=== PATIENT | male | born 1950 | race Caucasian/White ===

== ENCOUNTER → 2016-03-30 | Outpatient (CLI) | payer OTHER, MEDICARE ==
[~2016-03-30] MED LIST: ACET-1138 PO; ALLO300T2 PO; AMOX875T PO; ASPI325T4 PO; ASPI81TA28 PO; ATEN50TA PO; CHOL2000 PO; CHOL20007 PO; CIPR-255 PO; CLB/200 PO; CLB200 PO; CYAN10004 PO; DAPT500I IV; DAPT500I IV.; DOXY-300 PO; ERTA1INJ IV; FINA5TAB PO; FLM4 PO; FURO20TA PO; HYZ/50125 PO; LISI40TA PO; LOSA100T26 PO; LPR25 PO; MELO7.5T5 PO; NORT10CA2 PO; ONDA8TAB6 PO; OXYC-57 PO; OXYC1TAB3 PO; OXYSR10 PO; OXYSR20 PO; PROP60CA5 PO; RXC5 PO; SNK PO; TEST5GEL TOP; TESTOSTERONE; TYLOTC500 PO; ULT/50 PO; VTMB12 PO; WARF2TAB PO; WARF5TAB90 PO; allopurinol
== END | disposition home or self-care (01) ==
LOC: C.LAB1850 10:00
PROVIDERS: ATTEND Internal Medicine Endocrinology, Diabetes & Metabolism
DX: E29.1 Testicular hypofunction (principal)

== ENCOUNTER → 2016-04-03 | Outpatient (CLI) | payer OTHER, MEDICARE ==
--- NOTE | 2016-04-04 06:04 | PAP/PSG TECHNICIAN REPORT ---
[facility] Senior Quality Analyst Polysomnogram Report Study name: None Report date: 04/04/2016 Study date: 04/03/2016 Referring Physician: Hernandez Gilliam M.D. Name: MERLYN LOPEZ Interpreting Physician: Hernandez Gilliam M.D. Date of : 1950 Senior Quality Analyst: Shruthi Stephenson RPS. Sex: Male Age: 66 StudyType: PSG PAP Weight: 354 lbs Height: 66 years, Height 5' 8" Neck Circum: 18.5 inches BMI: 53.82 Medications: Allopurinol 300 mg, Aspirin 81 mg, Finasteride 1 mg, Inderal LA 80 mg, Losartan Potassium -HCTZ 50-12.5 mg, Nortriptyline 10 mg, Oxycodone-Acetaminophen 10-325 mg, Tamsuloson HCL 0.4 mf, Vitamin B-12 1000 MCG, Vitamin D 24764 Patient History 66 yr. old male here for an updated titration sleep study. Patient is currently using 13 CWP with nasal pillows. Current [place] sleepiness scale 16/24. Parameters Monitored NPSG: E1-M2, E2-M1, Fp1-M2, Fp2-M1, F3-M2, F4-M2, F4-M1, C3-M2, C4-M2, C4-M1, O1-M2, O2-M2, O2-M1, T3-M2, T4-M1, P3-M2, P4-M1, CHIN1, CHIN2, HR, EKG, Legs, PFLOW, SNOR, FLOW, CFLOW, Tidal Volume, THOR, ABDO, SpO2, PLTH, CPRESS, ETCO2 Wave, ETCO2, pH Sleep Architecture Sleep Stages Time at Lights Off 10:32:03 PM STAGES Time (min.) TST (%) Time at Lights On 5:36:03 AM Wake 102.0 -- Total Recording Time (TRT) 423.00 min. N1 56.5 18 Total Sleep Period (TSP) 417.0 min. N2 231.5 72 Total Sleep Time (TST) 321.0min. N3 9.5 3 Awake Time 102.0 min. REM 23.5 7 Wake after Sleep Onset 97.0 min. Sleep Efficiency (SE) 76 % Sleep Onset Latency (CATHERINE) 6.0 min. Number of Stage 1 Shifts None Awakenings 45 Stage Changes 164 Number of REM periods 8 REM 23.5 7 REM Latency 46.5 min. NREM 297.5 93 Body Position Analysis Supine Right Left Side Prone Vertical Total Sleep Time (min.) 79.8 129.0 131.0 260.00 0.0 0.5 Total Sleep Time (%) 19% 40% 41% 81 0% N/A% Total Sleep Time REM (min.) 0.0 6.0 17.5 None 0.0 0.0 Total Sleep Time NREM (min.) 61.0 123.0 113.5 None 0.0 0.0 Intermittent Wake (min.) 18.8 52.9 29.9 None 0.0 0.5 Total Sleep Period (%) 19% None None None None None Arousals Myoclonus (PLM) * Events Count Index Events Count Index Spontaneous 9 2 Events Awake (PLMW) 157 92.4 Respiratory 0 0.6 Events Asleep w/ Arousal (PLMA) 52 9.7 PLM 52 10 Events Asleep w/o Arousal (PLMS) 242 45.2 Snoring 2 0 Total Asleep 294 55.0 Total 63 12 Total 451 64 Respiratory Analysis * CA OA MA CH H RERA Total Count 0 0 0 0 30 0 30 Index 0.0 0.0 0.0 0 5.6 0 5.6 Mean Duration 0.0 0.0 0.0 0.00 29.9 0.0 29.9 Longest Duration 0.0 0.0 0.0 0.00 0.0 0.0 81.8 Respiratory Event Summary Total Supine ~Supine Right Left Prone REM NREM Apneas Count 0 0 0 0 0 N/A 0 0 Index 0.0 0 0 0.0 0.0 N/A 0 0 Hypopneas (4% Desat) Count 30 5 25 6 19 N/A 10 20 Index 5.6 4.9 6 2.8 8.7 N/A 25.5 4.0 Apneas & All Hypopneas Count 30 5 25 6 19 N/A 10 20 Index 5.6 5 6 3 9 N/A 25.5 4.0 Respiratory Events (Medical Imaging Tech+All Hyp+RERA) Count 30 5 25 6 19 N/A 10 20 Index 5.6 5 6 2.8 8.7 N/A 25.5 4.0 Respiratory Related Arousal Count 0 5 3 1 2 N/A 3 0 Index 0.6 0 1 0 1 N/A 8 0 Snoring Analysis Supine Right Left Prone REM NREM Total Snore duration 1.4 min Snores count 2 16 14 N/A 3 29 32 Snore mean duration 2.5 Sec Snores index 2 7 6 N/A 7.7 5.8 6.0 TST with snoring (%) 0.4% Desaturation Event Summary: Minimum %SpO2 Event Count Mean/Min/Max Duration(sec.) Desaturation Index % Time In Bed > 90 44 35.5 / 6.3 / 60.0 6.9 92.3 86 - 90 3 19.3 / 6.3 / 31.5 5.9 7.5 81 - 85 0 N/A 0.0 0.3 76 - 80 0 N/A 0.0 0.0 71 - 75 0 N/A 0.0 0.0 66 - 70 0 N/A 0.0 0.0 61 - 65 0 N/A 0.0 0.0 56 - 60 0 N/A 0.0 0.0 51 - 55 0 N/A 0.0 0.0 < 50 0 N/A 0.0 0.0 Total REM NREM Awake <50% 0.0 min. 0.0 min. 0.0 min. 0.0 min. 51 - 60% 0.0 min. 0.0 min. 0.0 min. 0.0 min. 61 - 70% 0.0 min. 0.0 min. 0.0 min. 0.0 min. 71 - 80% 0.0 min. 0.0 min. 0.0 min. 0.0 min. 81 - 90% 31.8 min. 12.1 min. 11.3 min. 8.5 min. 91 - 100% 381.0 min. 11.4 min. 286.2 min. 83.4 min. Average 94 91 94 96 Minimum SpO2 85 85 87 85 Desaturation Event Index 6.4 15.3 5.6 7.6 # Desat. Events below 89% 4 3 1 0 Time(%) with Saturation below 89% 2.1 1.5 0.0 0.6 Time(min.) with Saturation below 89% 8.9 6.0 0.2 2.7 Time (mins) REM (mins) NREM (mins) % of TST SpO2 Below 90% 16 5 N11 4.0 SpO2 Below 88% 1 0 0 1 Heart Rate Analysis Min (bpm) Max (bpm) Average (bpm) Awake 53 79 61 NREM 52 73 59 REM 52 77 61 Overall 52 77 59 Supplemental O2 Values Minimum O2 level: None Value Start Time End Time Senior Quality Analyst Comments Mr. Lopez slept in the right, left, and supine positions. Cardiac arrhythmias and PLMs noted. No bruxism noted. CPAP was initiated at +5 CMH2O room air and up-titrated to a level of + 10 CMH2O Cflex 2. A Respironics Dreamwear, was used during titration. Mr. Lopez awoke to use the restroom once during the night. Mr. Lopez stated, that was a terrible night due to pain. The final report will be interpreted and signed by a sleep physician. The completed physician report will then be placed in the patient medical record. Therapy Event: Therapy (cm H20) 5 6 7 8 9 10 Total Time at Pressure (min.) 67.6 170.8 87.6 22.4 60.3 14.3 TST at Pressure (min.) 49.1 132.8 54.1 17.9 55.3 11.8 # Periods 1 1 1 1 1 1 Sleep Onset (min.) 6.0 0.0 0.0 0.0 0.0 0.0 REM Onset (min.) 52.5 0.0 N/A 4.5 49.6 0.0 Sleep Efficiency % 72 77 61 79 91 82 Wakefulness (%) 27.4 22.3 38.2 20.1 8.3 17.5 Wakefulness (min.) 18.5 38.0 33.5 4.5 5.0 2.5 NREM 1 (%) 12.6 12.6 12.6 22.3 14.9 10.5 NREM 1 (min.) 8.5 21.5 11.0 5.0 9.0 1.5 NREM 2 (%) 56.2 57.6 49.2 42.0 62.3 35.0 NREM 2 (min.) 38.0 98.4 43.1 9.4 37.6 5.0 NREM 3 (%) 0.0 5.6 0.0 0.0 0.0 0.0 NREM 3 (min.) 0.0 9.5 0.0 0.0 0.0 0.0 REM (%) 3.8 2.0 0.0 15.6 14.5 37.0 REM (min.) 2.6 3.4 0.0 3.5 8.7 5.3 # Arousals 4 40 10 0 7 2 Arousal Index 4.9 18.1 11.1 0.0 7.6 10.2 # Snore 1 16 6 1 7 1 Snore Index 1.2 7.2 6.6 3.3 7.6 5.1 AHI 3.7 3.6 4.4 30.1 6.5 0.0 AHI Supine N/A 5.7 0.0 N/A N/A N/A AHI Non-Supine 3.7 2.3 5.2 30.1 6.5 0.0 NREM AHI 2.6 2.8 4.4 25.0 2.6 0.0 REM AHI 23.2 35.1 N/A 51.4 27.5 0.0 RDI 3.7 3.6 4.4 30.1 6.5 0.0 # Obstructive 0 0 0 0 0 0 # Central Ap 0 0 0 0 0 0 # Mixed 0 0 0 0 0 0 # Hypopneas 3 8 4 9 6 0 RERAS 0 0 0 0 0 0 Total Respiratory Events 3 8 4 9 6 0 Time Below SpO2 89.00% (min.) 0.0 0.3 0.0 1.7 2.7 1.6 Mean NREM SpO2 (%) 96 95 93 93 92 94 Mean REM SpO2 (%) 93 93 N/A 89 90 91 Mean Sleep SpO2 (%) 96 95 93 92 92 93 Min NREM SpO2 (%) 90 90 89 87 90 92 Min REM SpO2 (%) 89 88 N/A 85 85 87 Position Supine (min.) 0.0 52.9 8.1 0.0 0.0 0.0 Position Non-supine (min.) 49.1 79.9 46.0 17.9 55.3 11.8 LM Index Sleep 13.4 40.7 100.9 90.4 68.4 61.1 LM Index NREM 14.2 39.0 100.9 104.0 73.4 73.8 LM Index REM 0.0 105.4 N/A 34.3 41.3 45.4 Mean Heart Rate (bpm) 58 59 60 59 57 61 Min Heart Rate (bpm) 54 52 55 54 53 56
--- NOTE | 2016-04-08 01:56 | POLYSOMNOGRAPH REPORT ---
CLINICAL DATA: A 66-year-old male with BMI of 53.82, referred by myself for an updated titration study. He is currently using CPAP at 13 cm of water pressure with nasal pillows but still has significant sleepiness. SLEEP ARCHITECTURE: Total sleep period was 417 minutes. Total sleep time was 321 minutes divided between 297.5 minutes of non-REM sleep and 23.5 minutes of REM sleep. Sleep onset latency was 6 minutes. REM latency was 46.5 minutes. Sleep efficiency was 76%. Awake after sleep onset was 97 minutes. Sleep consisted of stage N1 18%, N2 72%, N3 3%, REM 7%. AROUSAL DATA: 63 arousals were recorded for an index of 12 per hour. PLM DATA: Severely elevated limb movements during sleep were noted. There were 294 limb movements during sleep noted for an index of 55 per hour with arousal index of 9.7 per hour. RESPIRATORY DATA: The AHI was 5.6. There were 38 hypopneic episodes. The mean duration of hypopnea was 30 seconds. OXIMETRY DATA: Mild nocturnal hypoxemia was seen. Oxygen dariel was 85% during REM. Mean saturation was 94%. Time below 88% was 1 minute. EKG: Heart rates ranged from 52-77 beats per minute. PACs were noted throughout the night. PHILANTHROPY OFFICER'S COMMENTS AND TREATMENT SUMMARY: The patient slept in the right, left and supine positions. The patient wore a Respironics DreamWear mask. He was titrated up to his final pressure setting of 10 cm water pressure, C-Flex setting #2. At his final pressure setting, the patient slept for 11.8 minutes with an AHI of 0. He had a great deal of difficulty during the night due to pain. IMPRESSION: Sleep apnea corrected with CPAP 10 cm of water pressure, C-Flex setting #2. RECOMMENDATIONS: The patient's CPAP can be adjusted to the above-noted setting. [facility]
== END | disposition home or self-care (01) ==
LOC: C.NEUR 20:00
PROVIDERS: ATTEND Internal Medicine Pulmonary Disease
DX: R53.83 Other fatigue (principal); G47.33 Obstructive sleep apnea (adult) (pediatric)

== ENCOUNTER → 2016-04-10 | Outpatient (CLI) | payer OTHER, MEDICARE ==
[~2016-04-10] VITALS: Ht 175.3 cm; Wt 154.0 kg
[~2016-04-10] MED LIST changes: -ASPI325T4 PO; -CYAN10004 PO; -FURO20TA PO; -LISI40TA PO; -LPR25 PO; -OXYSR20 PO; -TESTOSTERONE; -ULT/50 PO; -allopurinol
[2016-04-10 14:13] VITALS: BP 144/88; PULSE 72; Ht 175.3 cm; Wt 154.0 kg
== END | disposition home or self-care (01) ==
LOC: C.NEUR 13:30
PROVIDERS: ATTEND Internal Medicine Pulmonary Disease
DX: G47.33 Obstructive sleep apnea (adult) (pediatric) (principal); R53.83 Other fatigue; G89.29 Other chronic pain; M15.9 Polyosteoarthritis, unspecified

== ENCOUNTER 2016-05-08 09:20 | Inpatient (IN) | payer OTHER, MEDICARE ==
[2016-04-09 14:16] VITALS: BMI 49.0
--- NOTE | 2016-04-09 14:52 | PAT Medication Instructions ---
Service Date Apr 09, 2016. Current Home Medication List Allopurinol (Zyloprim), 300 MG PO QAM Aspirin (Aspirin Ec), 81 MG PO QAM Finasteride (Proscar), 5 MG PO QAM Losartan Potassium & Hydrochlo (Losartan Potassium/Hydroc), 1 TAB PO QAM Meloxicam (Mobic), 15 MG PO QAM Nortriptyline (Pamelor), 20 MG PO HS Oxycodone/Acetaminophen 5MG/325MG (Percocet 5MG/325MG), 1-2 TABLETS PO Q4H PRN for Pain Propranolol La (Inderal La), 80 MG PO QAM Tamsulosin HCl (Tamsulosin HCl), 1 CAP PO HS Testosterone (Androgel Pump), 40.5 MG TOP DAILY Medication Instructions For Your Scheduled Surgery - Check with surgeon for instructions: Meloxicam (Mobic), 15 MG PO QAM - Hold the following medications the morning of surgery: Losartan Potassium & Hydrochlo (Losartan Potassium/Hydroc), 1 TAB PO QAM Testosterone (Androgel Pump), 40.5 MG TOP DAILY - Take the following medications the morning of surgery with a sip of water: Propranolol La (Inderal La), 80 MG PO QAM Finasteride (Proscar), 5 MG PO QAM Allopurinol (Zyloprim), 300 MG PO QAM Aspirin (Aspirin Ec), 81 MG PO QAM (unless otherwise per surgeon) Oxycodone/Acetaminophen 5MG/325MG (Percocet 5MG/325MG), 1-2 TABLETS PO Q4H PRN for Pain (okay to take up to 4 hours prior to surgery if needed) - Take the following medications as scheduled the night before surgery: Tamsulosin HCl (Tamsulosin HCl), 1 CAP PO HS Nortriptyline (Pamelor), 20 MG PO HS Oxycodone/Acetaminophen 5MG/325MG (Percocet 5MG/325MG), 1-2 TABLETS PO Q4H PRN for Pain (if needed) If you have any questions please call us at [phone] (Emiliana Walters PA-C) or [phone] or [phone]
--- NOTE | 2016-04-09 15:21 | DIAGNOSTIC IMAGING REPORT ---
CHEST 2 VIEWS ROUTINE CLINICAL HISTORY: Preoperative evaluation COMPARISON STUDY: Chest radiograph December 31, 2011 and November 19, 2011. FINDINGS: Lung volumes are normal. There is no pneumothorax or pleural effusion. There is no evidence of pulmonary edema. Mild cardiomegaly is unchanged. IMPRESSION: 1. No acute cardiopulmonary findings. 2. Stable mild cardiomegaly. Electronically signed by: Timothy Ochoa M.D. 04/09/2016 3:19 PM Dictated Date/Time: 04/09/2016 3:18 PM
[2016-04-09 15:30] LABS: BASO % 0.5 %; BASO ABS # 0.03 K/uL (0-0.2); COMPLETE YES; EOS % 0.8 %; HEMATOCRIT 42.3 % (42-52); IG% 0.2 %; LYMPH ABS # 1.84 K/uL (1.2-3.4); MEAN CELL VOLUME 85.1 fL (80-100); MEAN CORPUSCULAR HEMOGLOBIN 29.2 pg (25-34); MEAN CORPUSCULAR HGB CONC 34.3 g/dl (32-36); MEAN PLATELET VOLUME 10.6 fL (7.4-10.4); MONO % 10.1 %; NEUT % 59.4 %; PLATELET COUNT 254 K/uL (130-400); RED BLOOD COUNT 4.97 M/uL (4.7-6.1); WHITE BLOOD COUNT 6.34 K/uL (4.8-10.8)
[2016-04-09 15:39] LABS: URINE APPEARANCE CLEAR (CLEAR); URINE BILIRUBIN NEG (NEG); URINE COLOR YELLOW; URINE NITRITE NEG (NEG); URINE SPECIFIC GRAVITY 1.009 (1.000-1.030); UROBILINOGEN NEG (NEG); ZZUR CULT IF INDIC CLEAN CATCH NO
[2016-04-09 15:40] LABS: INR 1.1 (0.9-1.1); PARTIAL THROMBOPLASTIN RATIO 1.1; PROTHROMBIN TIME (PATIENT) 11.9 SECONDS (9.0-12.0)
[2016-04-09 15:42] LABS: MANUAL MICROSCOPIC REQUIRED? NO; REVIEW REQ? NO
[2016-04-09 15:53] LABS: BUN/CREATININE RATIO 13.4 (10-20); CREATININE 0.77 mg/dl (0.60-1.40); POTASSIUM 4.2 mmol/L (3.5-5.1)
--- NOTE | 2016-05-07 09:44 | HISTORY & PHYSICAL EXAMINATION ---
DATE OF ADMISSION: 05/08/2016 CHIEF COMPLAINT: Right hip pain. HISTORY OF PRESENT ILLNESS: Timothy is a 66-year-old male with a multiple-year history of pain in his right hip. The patient's pain is mostly located in his right knee which is likely referred pain from the hip. He rates his pain an 8/10. He has pain with his daily activities. He has limited standing and walking tolerance. Pain is worse with weightbearing. The patient uses a cane to ambulate. He has had injections, Mobic and narcotics without relief. He has failed conservative treatment and is scheduled for right hip replacement. PAST MEDICAL HISTORY: History of DVT status post TKA 6 years ago, hypertension, sleep apnea, obesity. He denies heart disease or diabetes. PAST SURGICAL HISTORY: Knee replacement x4, inguinal hernia, cholecystectomy, appendectomy. SOCIAL HISTORY: The patient denies alcohol or tobacco use. He lives in an apartment with an elevator with his . He is retired. FAMILY HISTORY: Negative for DVT. MEDICATIONS: Allopurinol 300 mg daily, aspirin 81 mg daily, Inderal-LA 80 mg daily, losartan 50 mg daily, nortriptyline 10 mg, tamsulosin 0.4 mg daily, vitamin B12 1000 mcg, meloxicam 15 mg, oxycodone 5 mg, finasteride 5 mg, AndroGel 1.62% 6 pumps daily. ALLERGIES: None. REVIEW OF SYSTEMS: See HPI. Ten other systems reviewed, all negative. PHYSICAL EXAMINATION: VITAL SIGNS: Height 5-foot 9, weight 330 pounds, BMI is 49. GENERAL: This is a well-developed, well-nourished male who is alert and oriented x3. Mood and affect are appropriate. HEENT: Normocephalic, atraumatic. Mucous membranes are moist and intact. NECK: Supple without lymphadenopathy. HEART: Regular rate and rhythm without murmurs, rubs or gallops. LUNGS: Clear to auscultation without wheezes or rhonchi. ABDOMEN: Soft and nontender. Bowel sounds are equal and active. EXTREMITIES: No ecchymosis, redness or warmth. Thigh and calf are soft and nontender. Log roll of the hip reproduces pain in the groin. Range of motion is decreased. He is neurovascularly intact with +5/5 strength. He walks with an antalgic gait. X-RAY EXAMINATION: AP and lateral views show joint space narrowing and osteophyte formation of the right hip. PLAN: The patient will be admitted for a right total hip arthroplasty, lateral approach. The patient is aware due to his morbid obesity and history of DVT, he is high risk for surgery and possible complications, but due to his level of pain, wishes to proceed. He will plan on [facility] for home physical therapy. We will use aspirin for DVT prophylaxis. PCP is Dr. Garcia at [facility].
[~2016-05-08] VITALS: Ht 175.3 cm; Wt 152.3 kg
[~2016-05-08 09:20] MED LIST changes: -ACET-1138 PO; +ACETAMINOPHEN 500 MG TAB PO SCH; -AMOX875T PO; +BUPIVACAINE 0.5 % 5 MG/1 ML PF 10ML VIAL ONE; +CEFAZOLIN 3000 MG/65 ML D5W 65 ML IV SCH; -CHOL20007 PO; -CIPR-255 PO; -CLB/200 PO; -CLB200 PO; +CeleBREX 200 MG CAP PO SCH; -DAPT500I IV; -DAPT500I IV.; +DEXAMETHASONE 4 MG TAB PO SCH; -DOXY-300 PO; -ERTA1INJ IV; +FAMOTIDINE 20 MG TAB PO SCH; +GABAPENTIN 300 MG CAP PO SCH; -HYZ/50125 PO; +LACTATED RINGER'S 1000ML 1,000 ML IV SCH; +LACTATED RINGER'S 1000ML 500 ML IV ONE; +LACTATED RINGER'S 1000ML IV SCH; -MELO7.5T5 PO; +METOCLOPRAMIDE HCL 10 MG TAB PO SCH; -ONDA8TAB6 PO; -OXYC1TAB3 PO; +OXYCODONE HCL 10 MG TABCR (OXYCONTIN) PO SCH; -OXYSR10 PO; +POLYMYXIN B SULFATE 100,000 UNITS in NSS 100ML IR SCH; +ROPIVACAINE 5MG/ML 30 ML 150 MG, BUPIVACAINE/EPINEPHR 0.5% MPF 30 ML, KETOROLAC TROMETH... INFIL SCH; -RXC5 PO; -SNK PO; -TYLOTC500 PO; +VANCOMYCIN INJ 400 MG in NSS 100ML IR SCH; -VTMB12 PO; -WARF2TAB PO; -WARF5TAB90 PO
[2016-05-08 09:51] VITALS: BP 162/86; PULSE 63; TEMP 36.6; O2SAT 93; Ht 175.3 cm; Wt 152.3 kg
[2016-05-08] MEDS ORDERED: MIDAZOLAM HCL 1 MG/ML 2ML VIAL ONE ×2 (10:18→13:03)
[2016-05-08] MEDS ORDERED: PROPOFOL IV EMULSION 10 MG/ML 20 ML VIAL IV ONE (10:18)
[2016-05-08] MEDS ORDERED: FENTANYL CITRATE INJ 50 MCG/1 ML 2 ML VIAL ONE (10:18)
[2016-05-08] MEDS ORDERED: LABETALOL HCL IV 5 MG/ML 20ML IV PRN (10:30)
[2016-05-08] MEDS ORDERED: HYDROmorphone INJ 2 MG/ML SYR/VIAL IV PRN (10:30)
[2016-05-08] MEDS ORDERED: FENTANYL CITRATE INJ 50 MCG/1 ML 2 ML VIAL IV PRN (10:30)
[2016-05-08] MEDS ORDERED: FLUMAZENIL 0.1 MG/1 ML 10 ML VIAL IV PRN (10:30)
[2016-05-08] MEDS ORDERED: EpHEDrine SULFATE INJ 50 MG/ML AMP IV PRN (10:30)
[2016-05-08] MEDS ORDERED: ATROPINE SULFATE 0.1 MG/ML 5ML SYR IV PRN (10:30)
[2016-05-08] MEDS ORDERED: PHENYLEPHRINE 100MCG/ML 5ML SYR IV PRN (10:30)
[2016-05-08] MEDS ORDERED: MEPERIDINE HCL 25 MG/ML CARP IV PRN (10:30)
[2016-05-08] MEDS ORDERED: NALOXONE HCL 0.4 MG/1 ML VIAL/CARP IV PRN (10:30)
[2016-05-08] MEDS ORDERED: ONDANSETRON INJ 2 MG/ML 2 ML VIAL IV PRN ×2 (10:30→13:45)
--- NOTE | 2016-05-08 11:14 | History & Physical Bridge Note ---
H&P Re-Evaluation Bridge Note: I have examined the patient, reviewed the History & Physical and in the interval since the performance of the History & Physical I have noted the following changes of clinical significance: No changes noted
[2016-05-08] MEDS: TRANEXAMIC ACID INJ 1,000 MG in SODIUM CHLORIDE 0.9% 100ML 100 ML IV SCH ×2 (11:35→16:52)
[2016-05-08] MEDS ORDERED: ORTHO JOINT ANESTHETIC ONE (11:57)
[2016-05-08] MEDS ORDERED: POVIDONE-IODINE OP SOLN 30 ML BTL ONE (11:58)
[2016-05-08] MEDS ORDERED: BACITRACIN 50000 UNIT VIAL ONE (11:58)
[2016-05-08] MEDS ORDERED: PHENYLEPHRINE 100MCG/ML 5ML SYR ONE (12:32)
[2016-05-08] MEDS ORDERED: EpHEDrine SULFATE 50MG/5ML SYR ONE (12:32)
--- NOTE | 2016-05-08 13:38 | [facility] Post Operative Brief Note ---
Immediate Operative Summary Operative Date May 08, 2016. Pre-Operative Diagnosis Right Hip Degenerative joint Disease Post-Operative Diagnosis Right Hip Degenerative joint Disease MORBID OBESITY 50 Procedure(s) Performed Total Right Hip Arthroplasty, Lateral Approach Surgeon Dr. Anton Oconnor [employer] Machine Tender Surgeon(s) Amparo Nolasco PA-C Estimated Blood Loss 150 cc Findings severe djd Specimens A: Right Femoral Head Complication(s) None Disposition Recovery Room / PACU
[2016-05-08] MEDS ORDERED: DiphenhydrAMINE HCL 50 MG/ML VIAL IV PRN (13:45)
[2016-05-08] MEDS ORDERED: MAGNESIUM HYDROXIDE SUSP 30 ML UDC PO PRN (13:45)
[2016-05-08] MEDS ORDERED: ZOLPIDEM TARTRATE 5 MG TAB PO PRN (13:45)
[2016-05-08] MEDS ORDERED: TRAMADOL HCL 50 MG TAB PO PRN (13:45)
[2016-05-08] MEDS ORDERED: SOD PHOSPHATE/SOD BIPHOSPHATE ENEMA 132 ML BTL PR PRN (13:45)
[2016-05-08] MEDS ORDERED: ALUMINUM/MAGNESIUM/SIMETH (MAALOX MAX) 30 ML UDC PO PRN (13:45)
[2016-05-08] MEDS ORDERED: METOCLOPRAMIDE HCL INJ 5 MG/ML 2 ML VIAL IV PRN (13:45)
[2016-05-08] MEDS ORDERED: BISACODYL 10 MG SUPP PR PRN (13:45)
[2016-05-08] MEDS ORDERED: MoRPHine SULFATE 2 MG/ML CARP IV PRN (13:45)
--- NOTE | 2016-05-08 14:22 | DIAGNOSTIC IMAGING REPORT ---
RIGHT PELVIS/UNILATERAL HIP 1 VIEW CLINICAL HISTORY: IN PACU - A/P PELVIS and LATERAL HIP INCLUDING ALL OF IMPLANT Right postoperative evaluation COMPARISON: None. DISCUSSION: Total right hip replacement. Prosthetic is in good position. Expected soft tissue postoperative change IMPRESSION: Anatomic alignment status post total right hip replacement Electronically signed by: Reymundo Cortes M.D. 05/08/2016 2:21 PM Dictated Date/Time: 05/08/2016 2:20 PM
--- NOTE | 2016-05-08 14:36 | OPERATIVE REPORT ---
DATE OF OPERATION: 05/08/2016 PREOPERATIVE DIAGNOSES: 1. Degenerative arthritis, right hip. 2. Morbid obesity, BMI of 50. POSTOPERATIVE DIAGNOSES: Same. PROCEDURE: Right total hip replacement. SURGEON: Anton Oconnor MD MARKETING ANALYTICS LEAD: OPAL Ma ANESTHESIA: Spinal. BLOOD LOSS: 150 mL. REPLACEMENT FLUIDS: 2200 mL crystalloid. DRAINS: Hemovacs x2. CULTURES: None. COMPLICATIONS: None. COMPONENTS USED: [employer] hip system: Acetabulum size 56, femur size 9 standard offset, femoral head +8, 36 mm. NOTE: OPAL Ma was present and assisted throughout due to the complicated nature of this case. She helped with preparation and set up and positioning and first assisted throughout. She also personally closed the fascial, subcutaneous and skin layers and applied the postoperative dressing and a surface wound VAC. DESCRIPTION OF PROCEDURE: Following satisfactory spinal, the patient was placed in the lateral decubitus position because of his morbidly obese body habitus. He was secured with a lateral body positioner and sites were padded appropriately. He had a large abdominal pannus, which did have a tendency to hang over the table and was padded. The hip was prepared with ChloraPrep and then, draped sterilely. Following a surgical timeout, an anterolateral approach to the hip was performed in the interval between the sartorius and tensor muscles. An anterolateral approach to the hip was performed. The subcutaneous tissues were extremely large and deep and measured at least 6-8 inches over the greater trochanter. This required additional time and effort to expose the fascia and obtain hemostasis. The fascia was then divided longitudinally. A Hardinge approach was then completed. Bleeding was controlled. Severely arthritic femoral neck and head were exposed and dislocated. The femoral neck and head were trimmed and removed. Exposure was deep because of the patient's large body habitus and large fatty layer. Acetabular exposure was completed. Acetabular preparation was completed and following reaming, a 56 shell was impacted and secured with a dome screw. Local anesthetic was placed and after irrigation, the poly liner was placed. Attention was turned to the femur. Femoral canal was prepared up to a size 9. A trial reduction with a +8 head showed the best soft tissue tension. Orientation of components looked good. Leg lengths were difficult to assess because of the lateral position. The hip was dislocated. The trial components were removed. After irrigation, the final implant was placed and the hip was reduced. A Betadine soak was performed for 5 minutes. When 5 minutes were up, the Betadine was irrigated. A drain was placed. The vastus gluteus split after irrigation was then closed with interrupted [id number] sutures of #1 Vicryl and reinforced over the trochanter with #5 FiberWire through drill holes x2. Following irrigation, the fascia was closed with a running suture of 0 V-Loc and reinforced with #1 Vicryl. Another drain was then placed deep into the large fatty layer. The closure of the fat layer required additional effort because of the size, #2 Vicryl was used deep, #1 Vicryl and then 2-0 Vicryl superficial, all closed over a drain. Navin were applied. A surface wound VAC was applied. The patient was returned to his bed in stable condition. I attest to the content of the Intraoperative Record and any orders documented therein. Any exceptio ns are noted below.
--- NOTE | 2016-05-08 15:21 | Anesthesiology Progress Note ---
Anesthesia Post Op Note Date & Time May 08, 2016 at 15:21 Vital Signs Pain Intensity: 0 Vital Signs Past 12 Hours Date Time Temp Pulse Resp B/P Pulse Ox O2 Delivery O2 Flow Rate FiO2 05/08/16 14:43 36.5 05/08/16 14:40 54 16 100 05/08/16 14:40 53 16 05/08/16 14:38 134/68 05/08/16 14:35 54 14 100 05/08/16 14:35 54 14 05/08/16 14:33 127/68 05/08/16 14:30 56 10 100 05/08/16 14:30 56 10 05/08/16 14:28 126/66 05/08/16 14:25 57 16 05/08/16 14:25 59 16 99 05/08/16 14:23 116/59 05/08/16 14:20 52 05/08/16 14:20 52 14 99 05/08/16 14:18 125/75 05/08/16 14:15 55 05/08/16 14:15 56 14 99 05/08/16 14:13 121/72 05/08/16 14:10 55 14 99 05/08/16 14:10 56 14 05/08/16 14:08 134/70 05/08/16 14:05 57 14 99 05/08/16 14:05 57 05/08/16 14:03 123/67 05/08/16 14:00 57 10 100 05/08/16 14:00 57 10 05/08/16 13:58 124/63 05/08/16 13:57 116/68 05/08/16 13:55 36.7 58 14 116/68 98 Mask 10 05/08/16 09:51 36.6 63 20 162/86 93 Room Air Notes Mental Status: alert / awake / arousable, participated in evaluation Pt Amnestic to Procedure: Yes Nausea / Vomiting: adequately controlled Pain: adequately controlled Airway Patency, RR, SpO2: stable & adequate BP & HR: stable & adequate Hydration State: stable & adequate Neuraxial Anesthesia: was administered, sensory block is resolving Anesthetic Complications: no major complications apparent
[2016-05-08 16:10] VITALS: BP 118/68; PULSE 56; TEMP 34.7; O2SAT 97
[2016-05-08 16:32] VITALS: BP 124/70; PULSE 57; TEMP 36.4; O2SAT 95
[2016-05-08] MEDS: D5W AND 1/2NSS + 20MEQ KCL 1,000 ML IV SCH (16:54)
[2016-05-08] MEDS ORDERED: WARFARIN SOD 5 MG TAB PO SCH (17:00)
[2016-05-08 17:30] VITALS: BP 127/79; PULSE 63; TEMP 36.4; O2SAT 94
[2016-05-08] MEDS: KETOROLAC TROMETHAMINE 15 MG/ML VIAL IV. SCH (17:54)
[2016-05-08] MEDS: ACETAMINOPHEN 500 MG TAB PO SCH (17:54)
[2016-05-08 18:38] VITALS: BP 150/80; PULSE 65; TEMP 36.5; O2SAT 94
[2016-05-08 19:39] VITALS: BP 104/63; PULSE 68; TEMP 36.4; O2SAT 95
[2016-05-08] MEDS: OXYCODONE HCL 10 MG TABCR (OXYCONTIN) PO SCH (20:31)
[2016-05-08] MEDS: CEFAZOLIN IV 2,000 MG in DEXTROSE 5% 50ML 50 ML IV SCH (20:31)
[2016-05-08] MEDS: NORTRIPTYLINE HCL 10 MG CAP PO SCH (20:32)
[2016-05-08] MEDS: TAMSULOSIN HCL 0.4 MG CAP PO SCH (20:32)
[2016-05-08] MEDS: SENNA 8.6 MG TAB PO SCH (20:33)
[2016-05-09] VITALS (7 sets, daily range): BP systolic 118–148; BP diastolic 64–84; PULSE 55–64; TEMP 36.5–36.7; O2SAT 95–99
[2016-05-09] MEDS: KETOROLAC TROMETHAMINE 15 MG/ML VIAL IV. SCH ×4 (00:04→17:59)
[2016-05-09] MEDS: D5W AND 1/2NSS + 20MEQ KCL 1,000 ML IV SCH ×2 (03:38→12:30)
[2016-05-09] MEDS: CEFAZOLIN IV 2,000 MG in DEXTROSE 5% 50ML 50 ML IV SCH (03:38)
[2016-05-09] MEDS: OXYCODONE HCL IR 5 MG TAB (IMMEDIATE RELEASE) PO PRN ×2 (03:51→08:51)
[2016-05-09] MEDS: ACETAMINOPHEN 500 MG TAB PO SCH ×3 (05:57→22:18)
[2016-05-09 06:04] LABS: COMPLETE YES; HEMATOCRIT 39.2 % (42-52); IG% 0.3 %; LYMPH % 6.4 %; LYMPH ABS # 0.86 K/uL (1.2-3.4); MEAN CELL VOLUME 86.7 fL (80-100); MEAN CORPUSCULAR HEMOGLOBIN 29.9 pg (25-34); MEAN CORPUSCULAR HGB CONC 34.4 g/dl (32-36); MEAN PLATELET VOLUME 10.8 fL (7.4-10.4); MONO % 7.8 %; NEUT % 85.5 %; PLATELET COUNT 234 K/uL (130-400); RED BLOOD COUNT 4.52 M/uL (4.7-6.1); WHITE BLOOD COUNT 13.34 K/uL (4.8-10.8)
[2016-05-09 06:24] LABS: INR 1.1 (0.9-1.1)
[2016-05-09 06:31] LABS: BUN/CREATININE RATIO 18.6 (10-20); CALCIUM 8.8 mg/dl (8.5-10.1); CREATININE 0.84 mg/dl (0.60-1.40)
--- NOTE | 2016-05-09 07:48 | Orthopedic Progress Note ---
Orthopedic Progress Note Date of Service May 09, 2016. Subjective Post OP Day: 1 Reports: feeling well, pain controlled w PO medications, Denies: SOB, calf pain , chest pain, complaints, light headedness, nausea / vomiting Objective calves soft nontender, N/V intact, hip located, capillary refill less than 2 sec., dressing C/D/I, A&O x3, toes mobile Provena wound vac in tact Date Time Temp Pulse Resp B/P Pulse Ox O2 Delivery O2 Flow Rate FiO2 05/09/16 03:54 36.5 57 18 137/78 99 CPAP 05/09/16 00:05 Room Air 05/09/16 00:02 36.6 56 16 145/82 98 Room Air 05/08/16 19:39 36.4 68 16 104/63 95 Room Air 05/08/16 18:38 36.5 65 16 150/80 94 Nasal Cannula 3.0 05/08/16 17:30 36.4 63 18 127/79 94 Nasal Cannula 3.0 05/08/16 16:32 36.4 57 14 124/70 95 Nasal Cannula 3.0 05/08/16 16:10 34.7 56 14 118/68 97 Nasal Cannula 2.0 05/08/16 15:30 Nasal Cannula 2.0 05/08/16 15:30 Nasal Cannula 2.0 05/08/16 15:19 56 16 99 05/08/16 15:19 56 05/08/16 15:18 137/64 05/08/16 15:14 54 15 98 05/08/16 15:14 54 15 05/08/16 15:13 133/68 05/08/16 15:09 58 18 98 05/08/16 15:09 58 18 05/08/16 15:08 118/70 05/08/16 15:04 56 16 99 05/08/16 15:04 56 05/08/16 15:03 118/65 05/08/16 14:59 55 17 96 05/08/16 14:59 56 17 05/08/16 14:58 130/66 05/08/16 14:54 54 17 96 05/08/16 14:54 55 17 05/08/16 14:53 129/71 05/08/16 14:49 54 19 96 05/08/16 14:49 54 19 05/08/16 14:48 125/70 05/08/16 14:44 54 12 05/08/16 14:44 53 12 98 05/08/16 14:43 36.5 05/08/16 14:40 54 16 100 05/08/16 14:40 53 16 05/08/16 14:38 134/68 05/08/16 14:35 54 14 100 05/08/16 14:35 54 14 05/08/16 14:33 127/68 05/08/16 14:30 56 10 100 05/08/16 14:30 56 10 05/08/16 14:28 126/66 05/08/16 14:25 57 16 05/08/16 14:25 59 16 99 05/08/16 14:23 116/59 05/08/16 14:20 52 05/08/16 14:20 52 14 99 05/08/16 14:18 125/75 05/08/16 14:15 55 05/08/16 14:15 56 14 99 05/08/16 14:13 121/72 05/08/16 14:10 55 14 99 05/08/16 14:10 56 14 05/08/16 14:08 134/70 05/08/16 14:05 57 14 99 05/08/16 14:05 57 05/08/16 14:03 123/67 05/08/16 14:00 57 10 100 05/08/16 14:00 57 10 05/08/16 13:58 124/63 05/08/16 13:57 116/68 05/08/16 13:55 36.7 58 14 116/68 98 Mask 10 05/08/16 09:51 36.6 63 20 162/86 93 Room Air Laboratory Results 24 Hours: Test 05/09/16 05:32 White Blood Count 13.34 K/uL Red Blood Count 4.52 M/uL Hemoglobin 13.5 g/dL Hematocrit 39.2 % Mean Corpuscular Volume 86.7 fL Mean Corpuscular Hemoglobin 29.9 pg Mean Corpuscular Hemoglobin Concent 34.4 g/dl Platelet Count 234 K/uL Mean Platelet Volume 10.8 fL Neutrophils (%) (Auto) 85.5 % Lymphocytes (%) (Auto) 6.4 % Monocytes (%) (Auto) 7.8 % Eosinophils (%) (Auto) 0.0 % Basophils (%) (Auto) 0.0 % Neutrophils # (Auto) 11.40 K/uL Lymphocytes # (Auto) 0.86 K/uL Monocytes # (Auto) 1.04 K/uL Eosinophils # (Auto) 0.00 K/uL Basophils # (Auto) 0.00 K/uL Prothromb Time International Ratio 1.1 Prothrombin Time 12.0 SECONDS Assessment & Plan Assessment: POD #1, Rt SURJIT Plan: PT/ OT DVT proph- Coumadin D/C plans- Home w , likely Wednesday. Inhouse Planning Pain Management: Celebrex, Toradol, Oxycontin, Ultram, Morphine, PO Tylenol, Oxy IR DVT Prophylaxis: TEDs, SCDs, Coumadin Discharge Planning Discharge Planning: home with home health Pain Management: Celebrex, Oxycontin, PO Tylenol, Oxy IR DVT Prophylaxis: TEDs, Coumadin Therapy: Physical Therapy, Occupational Therapy
[2016-05-09] MEDS: OXYCODONE HCL 10 MG TABCR (OXYCONTIN) PO SCH ×2 (08:51→20:46)
[2016-05-09] MEDS: ALLOPURINOL 300 MG TAB PO SCH (08:52)
[2016-05-09] MEDS: FINASTERIDE 5 MG TAB PO SCH (08:53)
[2016-05-09] MEDS: MULTIVITAMIN TAB PO SCH (08:53)
[2016-05-09] MEDS: PANTOprazole SOD 40 MG TAB PO SCH (08:54)
[2016-05-09] MEDS: CHOLECALCIFEROL 1000 INTER.UNIT TAB PO SCH (08:54)
[2016-05-09] MEDS: LOSARTAN/HCTZ 50-12.5 EA TAB PO SCH (08:54)
[2016-05-09] MEDS: PROPRANOLOL HCL 80 MG LA CAP PO SCH (08:56)
[2016-05-09] MEDS ORDERED: WARFARIN SOD 5 MG TAB PO SCH (16:00)
[2016-05-09] MEDS: SENNA 8.6 MG TAB PO SCH (22:18)
[2016-05-09] MEDS: TAMSULOSIN HCL 0.4 MG CAP PO SCH (22:19)
[2016-05-09] MEDS: NORTRIPTYLINE HCL 10 MG CAP PO SCH (22:36)
[2016-05-10] MEDS: KETOROLAC TROMETHAMINE 15 MG/ML VIAL IV. SCH ×2 (00:09→05:33)
[2016-05-10] MEDS: ACETAMINOPHEN 500 MG TAB PO SCH (05:33)
[2016-05-10 05:42] VITALS: BP 139/71; PULSE 53; TEMP 36.6; O2SAT 98
[2016-05-10 06:10] VITALS: PULSE 60
--- NOTE | 2016-05-10 07:41 | Orthopedic Progress Note ---
Orthopedic Progress Note Date of Service May 10, 2016. Subjective Post OP Day: 2 Reports: feeling well, pain controlled w PO medications, Denies: SOB, calf pain , chest pain, complaints, light headedness, nausea / vomiting Objective calves soft nontender, N/V intact, capillary refill less than 2 sec., dressing C /D/I, A&O x3, toes mobile PROVENA IN TACT. Date Time Temp Pulse Resp B/P Pulse Ox O2 Delivery O2 Flow Rate FiO2 05/10/16 06:10 60 05/10/16 05:42 36.6 53 18 139/71 98 CPAP 05/10/16 00:10 CPAP 05/09/16 23:21 36.7 62 16 148/84 99 Room Air 05/09/16 15:55 Room Air CPAP 05/09/16 15:12 36.5 64 24 142/68 98 Room Air 05/09/16 12:01 36.5 55 16 118/64 97 Room Air 05/09/16 08:33 95 Room Air 05/09/16 08:01 36.6 55 20 120/80 95 Room Air Laboratory Results 24 Hours: Test 05/10/16 07:02 Assessment & Plan Assessment: POD #2, Rt SURJIT Plan: PT/ OT DVT proph- Coumadin D/C plans- Home w HH, likely Wednesday. Inhouse Planning Pain Management: Celebrex, Toradol, Oxycontin, Ultram, Morphine, PO Tylenol, Oxy IR DVT Prophylaxis: TEDs, SCDs, Coumadin Discharge Planning Discharge Planning: home with home health Pain Management: Celebrex, Oxycontin, PO Tylenol, Oxy IR DVT Prophylaxis: TEDs, Coumadin Therapy: Physical Therapy, Occupational Therapy
[2016-05-10] MEDS ORDERED: OXYSR10 PO (07:46)
[2016-05-10] MEDS ORDERED: WARF2TAB PO (07:46)
[2016-05-10] MEDS ORDERED: CLB200 PO (07:46)
[2016-05-10] MEDS ORDERED: ACET-1138 PO (07:46)
[2016-05-10] MEDS ORDERED: RXC5 PO (07:46)
[2016-05-10] MEDS ORDERED: ONDA8TAB6 PO (07:46)
[2016-05-10] MEDS: PROPRANOLOL HCL 80 MG LA CAP PO SCH (07:50)
[2016-05-10] MEDS: LOSARTAN/HCTZ 50-12.5 EA TAB PO SCH (07:50)
[2016-05-10] MEDS: OXYCODONE HCL 10 MG TABCR (OXYCONTIN) PO SCH (07:50)
[2016-05-10] MEDS: MULTIVITAMIN TAB PO SCH (07:50)
[2016-05-10] MEDS: ALLOPURINOL 300 MG TAB PO SCH (07:51)
[2016-05-10] MEDS: PANTOprazole SOD 40 MG TAB PO SCH (07:51)
[2016-05-10] MEDS: FINASTERIDE 5 MG TAB PO SCH (07:51)
[2016-05-10] MEDS: CHOLECALCIFEROL 1000 INTER.UNIT TAB PO SCH (07:51)
--- NOTE | 2016-05-10 07:51 | Discharge Instructions ---
Discharge Instructions Admission Reason for Admission: Right Hip Degenerative Arthritis Discharge Discharge Diagnosis / Problem: Rt SURJIT Discharge Goals Goal(s): Improve function Activity Recommendations Activity Limitations: as noted below . Instructions / Follow-Up Instructions / Follow-Up ACTIVITY RECOMMENDATIONS: SELF CARE INSTRUCTIONS AFTER TOTAL HIP REPLACEMENT Until the incision and soft tissues around your hip have healed, there is a possibility that the hip prosthesis could dislocate. A. Observe the following precautions to prevent dislocation: 1. Don't bend your hip greater than 90 degrees. 2. Avoid crossing your legs or ankles while standing or lying. 3. Sit with your feet placed 6 inches apart. 4. When sitting, keep your knees below your hips. Sit on a firm surface, avoid deep, soft chairs and couches. Use an elevated toilet seat in the bathroom. 5. Don't bend over at the waist. Use a long handled shoehorn and a sock aid to help you put on your shoes and socks. A field collector can help you pear picker objects that are too high or too low to reach. 6. Keep car riding to a minimum for at least one month after surgery. B. Your balance may be shaky for a while. Use crutches or a walker until directed by your doctor. C. Use hand rails when walking on stairs. D. Wear low heeled shoes with non-slip soles. E. Be sure that your floors are free of things that could trip you - throw rugs , electrical cords, small objects. Avoid wet and waxed floors, especially with crutches and canes. F. Try to walk several times a day with rest periods between. G. Continue with all the exercises taught to you in the hospital. Again, make walking a part of your daily routine. SPECIAL CARE INSTRUCTIONS: VERY IMPORTANT TO READ AND REVIEW A. You may still be at risk for phlebitis and blood clots. 1. Wear surgical stockings (ERNST hose) for 2 weeks after surgery to improve circulation and reduce swelling. 2. Take coumadin daily for 4 weeks or as directed by your doctor. This is your blood thinner. 3. High risk patients may be prescribed a stronger blood thinner if necessary. 4. Due to being on coumadin you will need to have blood work twice the first week after discharge, then weekly for four weeks. Dr. Oconnor's office will call you the day of or the day after your bloodwork to adjust your dosing if needed. B. You must take antibiotics before having dental work, bladder, bowel and other surgery. Your doctor will provide you with a permanent card to carry describing precautions. C. Call [facility] if you have a fever, redness or swelling around the incision, cloudy drainage from incision, or sudden increase in pain in your hip, not relieved by your regular pain medication. D. Please call the office at if you have any concerns or questions about your operation or recovery. * YOU MAY SHOWER, NO TUB BATHS UNTIL CLEARED BY YOUR DOCTOR. * WEAR ERNST HOSE 20 HOURS PER DAY FOR 2 WEEKS. * YOU SHOULD USE A WALKER OR CRUTCHES FOR 2-4 WEEKS. THIS WILL HELP PREVENT STRAIN ON YOUR HIP MUSCLE AND ALLOW IT TO HEAL PROPERLY. YOU MAY WEAN TO A CANE TOLERATED. * MOST PATIENTS WILL HAVE HOME NURSING FOR THERAPY. IF YOU DECIDE TO DO OUTPATIENT PHYSICAL THERAPY, PLEASE SCHEDULE THIS 3 TIMES PER WEEK. * YOU MAY HAVE A LARGE, BAND-ESTUARDO LIKE DRESSING (SILVERON). THIS WILL REMAIN ON YOUR INCISION FOR 7 DAYS, THEN CAN BE REMOVED. IF INCISION IS LEAKING THROUGH DRESSING, PLEASE CALL THE OFFICE . FOLLOW UP VISIT: If appointment is not already scheduled: Please call [facility] to make a follow-up appointment for 2 weeks after your surgery at . YOU HAVE A WOUND VAC ON YOUR HIP INCISION, LEAVE ON FOR 1 WEEK POST OP AND THEN DISCARD ALL PIECES, THEN DAILY DRESSING CHANGES UNTIL FOLLOW UP IN OFFICE. Current Hospital Diet Patient's current hospital diet: Regular Diet Discharge Diet Recommended Diet: Regular Diet Procedures Procedures Performed: Total Right Hip Arthroplasty, Lateral Approach Pending Studies Studies pending at discharge: no Medical Emergencies . Who to Call and When: Medical Emergencies: If at any time you feel your situation is an emergency, please call 911 immediately. . Non-Emergent Contact Non-Emergency issues call your: Primary Care Provider . "Provider Documentation" section prepared by Reymundo Navarro. VTE Core Measure Inpt VTE Proph given/why not?: Warfarin (Coumadin), T.EMirna Stockings, SCD's
[2016-05-10 09:56] VITALS: BP 139/71; PULSE 60; TEMP 36.6; O2SAT 98
[2016-05-10 10:02] LABS: INR 1.3 (0.9-1.1); PROTHROMBIN TIME (PATIENT) 13.8 SECONDS (9.0-12.0)
[2016-05-10] MEDS ORDERED: CeleBREX 200 MG CAP PO SCH (21:00)
--- NOTE | 2016-05-18 14:27 | DISCHARGE SUMMARY ---
DISCHARGE DIAGNOSIS: Degenerative joint disease, right hip. SECONDARY DIAGNOSIS: Morbid obesity. CONSULTS: None. COMPLICATIONS: None. PROCEDURE: The patient underwent a direct anterior right total hip arthroplasty with Dr. Oconnor on 05/08/2016. BRIEF HISTORY: Please see previously dictated history and physical. HOSPITAL SUMMARY: The patient was admitted on the above day for the above procedure. Procedure went without complication. Postop day 1, the patient was feeling well without complaints. He denied chest pain or shortness of breath. Vital signs were stable. He was afebrile. Dressing was clean, dry and intact. He was neurovascularly intact. Calves were soft and nontender. Prevena was in place. Hemoglobin was 13.5. The patient began physical therapy per protocol. He was on Coumadin for DVT prophylaxis. Postop day 2, the patient was improving. He denied chest pain or shortness of breath. Vital signs were stable. He was afebrile. Prevena dressing was clean, dry and intact. He was neurovascularly intact. Calves were soft and nontender. The patient continued to progress with physical therapy and was discharged to home later that day in stable condition. For further review please see the chart. Lab, x-ray data and discharge instructions as per chart.
[2016-06-25] MEDS ORDERED: OXYC1TAB3 PO (15:52)
[2016-06-25] MEDS ORDERED: TYLOTC500 PO (15:52)
[2016-06-25] MEDS ORDERED: CLB/200 PO (15:52)
[2016-06-29] MEDS ORDERED: TYLOTC500 PO (14:17)
[2016-06-29] MEDS ORDERED: WARF5TAB90 PO (14:17)
[2016-06-29] MEDS ORDERED: CLB/200 PO (14:17)
[2016-06-29] MEDS ORDERED: OXYC1TAB3 PO (14:17)
[2016-06-29] MEDS ORDERED: DAPT500I IV (14:20)
[2016-07-10] MEDS ORDERED: DAPT500I IV (09:21)
[2016-07-10] MEDS ORDERED: CHOL20007 PO (09:48)
[2016-07-10] MEDS ORDERED: VTMB12 PO (09:48)
[2016-08-26] MEDS ORDERED: CIPR-255 PO (15:47)
[2016-08-26] MEDS ORDERED: DAPT500I IV (15:49)
[2016-09-02] MEDS ORDERED: CIPR-255 PO (10:05)
[2016-09-07] MEDS ORDERED: DOXY-300 PO (13:53)
[2016-10-06] MEDS ORDERED: DAPT500I IV. (11:31)
[2016-10-06] MEDS ORDERED: ERTA1INJ IV (11:31)
[2016-10-14] MEDS ORDERED: AMOX875T PO (10:09)
[2016-10-16] MEDS ORDERED: TEST5GEL TOP (08:10)
[2016-10-28] MEDS ORDERED: HYZ/50125 PO (09:42)
[2016-10-28] MEDS ORDERED: DOXY-300 PO (10:04)
[2016-11-18] MEDS ORDERED: ERTA1INJ IV (09:37)
[2016-11-18] MEDS ORDERED: DAPT500I IV (09:37)
== END 2016-05-10 11:08 | disposition home health service (06) | DRG 470 ==
LOC: ENRESERVDT → ENRESERVTM → C.ACU 09:20 → C.3E 11:30
PROVIDERS: ADMIT Orthopaedic Surgery; ATTEND Orthopaedic Surgery
PROC: 0SR904Z Replacement of Right Hip Joint with Ceramic on Polyethylene Synthetic Substitute, Open Approach (ICD-10-PCS; principal; 2016-05-08 11:10)
DX: M16.11 Unilateral primary osteoarthritis, right hip (principal); Z68.42 Body mass index [BMI] 45.0-49.9, adult; I10 Essential (primary) hypertension; R00.1 Bradycardia, unspecified; N40.0 Benign prostatic hyperplasia without lower urinary tract symptoms; M10.9 Gout, unspecified; E66.01 Morbid (severe) obesity due to excess calories; F41.9 Anxiety disorder, unspecified; G47.30 Sleep apnea, unspecified; Z99.89 Dependence on other enabling machines and devices; Z92.84 Personal history of unintended awareness under general anesthesia; Z96.653 Presence of artificial knee joint, bilateral; Z86.718 Personal history of other venous thrombosis and embolism; Z79.1 Long term (current) use of non-steroidal anti-inflammatories (NSAID); Z79.82 Long term (current) use of aspirin; Z79.891 Long term (current) use of opiate analgesic; Z79.899 Other long term (current) drug therapy

== ENCOUNTER → 2016-05-12 | Outpatient (CLI) | payer OTHER, MEDICARE ==
[~2016-05-12] MED LIST changes: +ACET-1138 PO; -ACETAMINOPHEN 500 MG TAB PO SCH; +AMOX875T PO; -ASPI81TA28 PO; -BUPIVACAINE 0.5 % 5 MG/1 ML PF 10ML VIAL ONE; -CEFAZOLIN 3000 MG/65 ML D5W 65 ML IV SCH; +CHOL20007 PO; +CIPR-255 PO; +CLB/200 PO; +CLB200 PO; -CeleBREX 200 MG CAP PO SCH; +DAPT500I IV; +DAPT500I IV.; -DEXAMETHASONE 4 MG TAB PO SCH; +DOXY-300 PO; +ERTA1INJ IV; -FAMOTIDINE 20 MG TAB PO SCH; -GABAPENTIN 300 MG CAP PO SCH; +HYZ/50125 PO; -LACTATED RINGER'S 1000ML 1,000 ML IV SCH; -LACTATED RINGER'S 1000ML 500 ML IV ONE; -LACTATED RINGER'S 1000ML IV SCH; -METOCLOPRAMIDE HCL 10 MG TAB PO SCH; +ONDA8TAB6 PO; -OXYC-57 PO; +OXYC1TAB3 PO; -OXYCODONE HCL 10 MG TABCR (OXYCONTIN) PO SCH; +OXYSR10 PO; -POLYMYXIN B SULFATE 100,000 UNITS in NSS 100ML IR SCH; -ROPIVACAINE 5MG/ML 30 ML 150 MG, BUPIVACAINE/EPINEPHR 0.5% MPF 30 ML, KETOROLAC TROMETH... INFIL SCH; +RXC5 PO; +SNK PO; +TYLOTC500 PO; -VANCOMYCIN INJ 400 MG in NSS 100ML IR SCH; +VTMB12 PO; +WARF2TAB PO; +WARF5TAB90 PO
[2016-05-12 12:12] LABS: INR 2.1 (0.9-1.1); PROTHROMBIN TIME (PATIENT) 22.7 SECONDS (9.0-12.0)
--- NOTE | 2016-05-14 07:54 | CODING QUERY NO DIAGNOSIS ---
Valid Physician Order Needed A valid physician order must be submitted in order to properly bill for the service(s) provided, including date of service(s), valid diagnosis, and physician signature. If these tests are done on a recurring basis the original physican order must be submitted in order to code and bill for the service(s) provided. Please fax us the original, signed physician order so that we may expedite billing to [phone] DOS 05/12/16 * PT/INR ORDERED BY DR. NICOLE Thank you [facility] Information Management
== END | disposition home or self-care (01) ==
LOC: C.LABSPEC 11:57
PROVIDERS: ATTEND Orthopaedic Surgery
DX: Z47.1 Aftercare following joint replacement surgery (principal); Z96.641 Presence of right artificial hip joint

== ENCOUNTER → 2016-05-18 | Outpatient (CLI) | payer OTHER, MEDICARE ==
[~2016-05-18] MED LIST changes: +ACET-1256 PO; +CYAN1CAP3 PO; +LEVO1TAB33 PO; +LEVO1TAB34 PO; -LOSA100T26 PO; +LOSA100T33 PO; +LVQ750 PO; +NZRCR EXT
[2016-05-18 11:13] LABS: INR 6.4 (0.9-1.1); PROTHROMBIN TIME (PATIENT) 73.8 SECONDS (9.0-12.0)
--- NOTE | 2016-06-05 11:23 | CODING QUERY NO DIAGNOSIS ---
Valid Physician Order Needed A valid physician order must be submitted in order to properly bill for the service(s) provided, including date of service(s), valid diagnosis, and physician signature. If these tests are done on a recurring basis the original physican order must be submitted in order to code and bill for the service(s) provided. Please fax us the original, signed physician order so that we may expedite billing to [phone] DOS 05/18/2016 * PT/INR Thank you [facility] Information Management
== END | disposition home or self-care (01) ==
LOC: C.LABSPEC 10:43
PROVIDERS: ATTEND Orthopaedic Surgery
DX: Z51.81 Encounter for therapeutic drug level monitoring (principal); Z79.01 Long term (current) use of anticoagulants

== ENCOUNTER → 2016-05-22 | Outpatient (CLI) | payer OTHER, MEDICARE ==
[~2016-05-22] MED LIST changes: -ACET-1256 PO; -CYAN1CAP3 PO; -LEVO1TAB33 PO; -LEVO1TAB34 PO; +LOSA100T26 PO; -LOSA100T33 PO; -LVQ750 PO; -NZRCR EXT
[2016-05-22 13:06] LABS: INR 1.5 (0.9-1.1); PROTHROMBIN TIME (PATIENT) 16.5 SECONDS (9.0-12.0)
== END | disposition home or self-care (01) ==
LOC: C.LABSPEC 12:53
PROVIDERS: ATTEND Orthopaedic Surgery
DX: Z79.01 Long term (current) use of anticoagulants (principal); Z51.81 Encounter for therapeutic drug level monitoring

== ENCOUNTER → 2016-05-28 | Outpatient (CLI) | payer OTHER, MEDICARE ==
[2016-05-28 11:39] LABS: INR 1.1 (0.9-1.1); PROTHROMBIN TIME (PATIENT) 12.1 SECONDS (9.0-12.0)
--- NOTE | 2016-05-29 22:05 | CODING QUERY NO DIAGNOSIS ---
Valid Physician Order Needed 49 A valid physician order must be submitted in order to properly bill for the service(s) provided, including date of service(s), valid diagnosis, and physician signature. If these tests are done on a recurring basis the original physician order must be submitted in order to code and bill for the service(s) provided. Please fax us the original, signed physician order so that we may expedite billing to [phone] DOS 05/28/2016 * PTT Thank you [facility] Information Management
== END | disposition home or self-care (01) ==
LOC: C.LABSPEC 11:20
PROVIDERS: ATTEND Orthopaedic Surgery
DX: Z96.641 Presence of right artificial hip joint (principal); Z79.01 Long term (current) use of anticoagulants; Z47.1 Aftercare following joint replacement surgery; M19.91 Primary osteoarthritis, unspecified site

== ENCOUNTER → 2016-06-03 | Outpatient (CLI) | payer OTHER, MEDICARE ==
[2016-06-03 08:51] LABS: INR 1.2 (0.9-1.1); PROTHROMBIN TIME (PATIENT) 13.4 SECONDS (9.0-12.0)
== END | disposition home or self-care (01) ==
LOC: C.LAB1850 08:10
PROVIDERS: ATTEND Orthopaedic Surgery
DX: Z47.1 Aftercare following joint replacement surgery (principal); Z96.60 Presence of unspecified orthopedic joint implant

== ENCOUNTER → 2016-06-18 | Outpatient (CLI) | payer OTHER, MEDICARE | END | disposition home or self-care (01) | LOC: C.PATHSPEC 16:57 | PROVIDERS: ATTEND Dermatology | DX: L82.1 Other seborrheic keratosis (principal) ==

== ENCOUNTER 2016-06-26 05:04 | Inpatient (IN) | payer OTHER, MEDICARE ==
[2016-06-25 15:26] VITALS: BMI 49.0
[2016-06-26] VITALS (9 sets, daily range): BP systolic 94–155; BP diastolic 52–105; PULSE 53–75; TEMP 36.3–36.7; O2SAT 94–100; Ht 177.8 cm; Wt 154.6 kg
[~2016-06-26] VITALS: Ht 177.8 cm; Wt 154.6 kg
[~2016-06-26 05:04] MED LIST changes: -ACET-1138 PO; -AMOX875T PO; -CHOL20007 PO; -CIPR-255 PO; -CLB200 PO; -DAPT500I IV; -DAPT500I IV.; -DOXY-300 PO; -ERTA1INJ IV; -HYZ/50125 PO; -LOSA100T26 PO; +LOSA100T33 PO; -ONDA8TAB6 PO; -OXYSR10 PO; -RXC5 PO; -SNK PO; -TEST5GEL TOP; -VTMB12 PO; -WARF2TAB PO; -WARF5TAB90 PO
[2016-06-26] MEDS ORDERED: FAMOTIDINE 20 MG TAB PO SCH (06:00)
[2016-06-26] MEDS ORDERED: OXYCODONE HCL 10 MG TABCR (OXYCONTIN) PO SCH (06:00)
[2016-06-26] MEDS ORDERED: LACTATED RINGER'S 1000ML IV SCH (06:00)
[2016-06-26] MEDS ORDERED: PROPRANOLOL HCL 80 MG LA CAP PO SCH (06:00)
[2016-06-26] MEDS ORDERED: METOCLOPRAMIDE HCL 10 MG TAB PO SCH (06:00)
[2016-06-26] MEDS ORDERED: LACTATED RINGER'S 1000ML 1,000 ML IV SCH (06:00)
[2016-06-26] MEDS ORDERED: POLYMYXIN B SULFATE 100,000 UNITS in NSS 100ML IR SCH (06:00)
[2016-06-26] MEDS ORDERED: CeleBREX 200 MG CAP PO SCH (06:00)
[2016-06-26] MEDS ORDERED: ACETAMINOPHEN 500 MG TAB PO SCH (06:00)
[2016-06-26] MEDS ORDERED: LACTATED RINGER'S 1000ML 500 ML IV ONE (06:00)
[2016-06-26] MEDS ORDERED: VANCOMYCIN INJ 400 MG in NSS 100ML IR SCH (06:00)
[2016-06-26 06:04] LABS: PARTIAL THROMBOPLASTIN RATIO 1.2; PROTHROMBIN TIME (PATIENT) 11.1 SECONDS (9.0-12.0)
[2016-06-26] MEDS ORDERED: MIDAZOLAM HCL 1 MG/ML 2ML VIAL ONE ×2 (06:34)
[2016-06-26] MEDS ORDERED: BUPIVACAINE 0.5 % 5 MG/1 ML PF 10ML VIAL ONE (06:39)
[2016-06-26] MEDS ORDERED: FENTANYL CITRATE INJ 50 MCG/1 ML 2 ML VIAL ONE ×3 (06:51→08:03)
[2016-06-26] MEDS ORDERED: ACETAMINOPHEN 1000 MG/100 ML IV IV ONE (06:53)
[2016-06-26] MEDS: TRANEXAMIC ACID INJ 1,000 MG in SODIUM CHLORIDE 0.9% 100ML 100 ML IV SCH ×2 (06:56→11:46)
[2016-06-26] MEDS ORDERED: BUPIVACAINE/EPINEPHRINE 0.5% MPF 1:200,000 30 ML VIAL ONE ×2 (07:04→07:06)
[2016-06-26] MEDS ORDERED: BACITRACIN 50000 UNIT VIAL ONE (07:05)
--- NOTE | 2016-06-26 07:11 | History and Physical ---
History & Physical Date Jun 26, 2016. History of Present Illness The patient is a 66 year old male with complaints of R HIP DAINAING . Hx of morbid obesity w bmi of 50 who underwent RTHA on 05/08/16 for severe djd. He used surface wound vac and aggressive measures and had an initial unevenful course. Now persistsw persistant disatl drainage without pain fever chills. Concern for superficial vs deep infection. admitted for exploration and I AND D. Past Medical/Surgical History Surgical Problems: (1) Post-operative state Additional History Endocrine Disorder: Yes Hypertension: Yes Other: MORBID OBESITY SLEEP APNEA Allergies Coded Allergies: No Known Allergies (Unverified , 06/26/16) Home Medications Scheduled Acetaminophen (Tylenol), 1,000 MG PO PRN Allopurinol (Zyloprim), 300 MG PO QAM Atenolol (Tenormin), 50 MG PO QAM Cholecalciferol (Vitamin D3), 1 CAP PO QAM Finasteride (Proscar), 5 MG PO QAM Losartan Potassium & Hydrochlo (Losartan Potassium/Hydroc), 1 TAB PO QAM Nortriptyline (Pamelor), 20 MG PO HS Oxycodone Ir (Roxicodone Ir), 10 MG PO BID Propranolol La (Inderal La), 80 MG PO QAM Tamsulosin HCl (Tamsulosin HCl), 1 CAP PO HS Scheduled PRN Celecoxib (CeleBREX), 200 MG PO BID PRN for RN Physical Examination Skin: + pertinent finding (SEVERE VENOUS DISEASE OF LOWER EXT ) ENT: normal ENT inspection, pharynx normal Head: normocephalic, atraumatic Neck: supple, no adenopathy, trachea midline Respiratory/Chest: lungs clear, normal breath sounds, no respiratory distress Cardiovascular: regular rate, rhythm, no edema, no murmur Abdomen / GI: normal bowel sounds, non tender, + pertinent finding (OBESE) Back: normal inspection Extremities: + pertinent finding (r HIP SCAR OPEN DISTALLY DRAINING MOSTLY SEROUS FLUID VEY HEAVY THIGH NO PAIN W ROM ) Neurologic/Psych: no motor/sensory deficits, alert, normal reflexes, oriented x 3 Diagnosis PERSISTANT WOUND DRAINAGE S/P SURJIT RO INFECTION OBESITY HTN ASA Classification: ASA Class III Plan of Treatment EXPLORE I AND D
--- NOTE | 2016-06-26 07:21 | History & Physical Bridge Note ---
H&P Re-Evaluation Bridge Note: I have examined the patient, reviewed the History & Physical and in the interval since the performance of the History & Physical I have noted the following changes of clinical significance: possible poly exchange No changes noted
[2016-06-26] MEDS ORDERED: ONDANSETRON INJ 2 MG/ML 2 ML VIAL IV PRN ×2 (07:45→09:45)
[2016-06-26] MEDS ORDERED: ATROPINE SULFATE 0.1 MG/ML 5ML SYR IV PRN (07:45)
[2016-06-26] MEDS ORDERED: EpHEDrine SULFATE INJ 50 MG/ML AMP IV PRN (07:45)
[2016-06-26] MEDS ORDERED: PROMETHAZINE HCL INJ 6.25 MG in SODIUM CHLORIDE 0.9% 50ML 50 ML IV PRN (07:45)
[2016-06-26] MEDS: VANCOMYCIN INJ 2,300 MG in SODIUM CHLORIDE 0.9% 500ML 500 ML IV SCH ×2 (08:00→11:46)
[2016-06-26] MEDS ORDERED: ONDANSETRON INJ 2 MG/ML 2 ML VIAL ONE (08:05)
[2016-06-26] MEDS ORDERED: LIDOCAINE HCL 2% 2 ML VIAL (20MG/ML) ONE (08:05)
[2016-06-26] MEDS ORDERED: SUCCINYLCHOLINE 100MG/5ML SYR IV ONE (08:05)
[2016-06-26] MEDS ORDERED: ROCURONIUM BROMIDE 10 MG/ML 5 ML VIAL ONE (08:05)
[2016-06-26] MEDS ORDERED: PROPOFOL IV EMULSION 10 MG/ML 20 ML VIAL IV ONE (08:05)
[2016-06-26] MEDS ORDERED: LABETALOL HCL IV 5 MG/ML 20ML IV ONE (08:06)
[2016-06-26] MEDS ORDERED: POVIDONE-IODINE OP SOLN 30 ML BTL ONE (08:15)
[2016-06-26] MEDS ORDERED: GLYCOPYRROLATE INJ 0.2 MG/ML VIAL ONE ×2 (08:29→08:49)
[2016-06-26] MEDS ORDERED: NEOSTIGMINE METHYLSULFATE 5 MG/5 ML SYR ONE (08:29)
[2016-06-26] MEDS ORDERED: VANCOMYCIN HCL 1000MG/20ML VIAL ONE (08:39)
[2016-06-26] MEDS ORDERED: HydrALAZINE HCL 20 MG/ML VIAL ONE (08:52)
--- NOTE | 2016-06-26 09:40 | [facility] Post Operative Brief Note ---
Immediate Operative Summary Operative Date Jun 26, 2016. Pre-Operative Diagnosis Persistent Right hip drainage Post-Operative Diagnosis Persistent Right hip drainage MORBID OBESITY BMI 50 Procedure(s) Performed Right Hip Incision, Irrigation, and Debridement; Poly Exchange and Exchange of Femoral Head; Placement of Antibiotic Beads Surgeon Dr. Felipe Oconnor Wind Development Director Surgeon(s) Armida Nolasco PA-C Estimated Blood Loss 500 ml Findings ABDUCTOR DEHISED DRAINAGE WENT ALL THE WAY TO HIP Specimens Microbiology #1 Stat gram stain, culture and sensitivity, anaerobic from right hip Specimen A: Explanted hardware right hip Complication(s) None Disposition Recovery Room / PACU
[2016-06-26] MEDS ORDERED: MAGNESIUM HYDROXIDE SUSP 30 ML UDC PO PRN (09:45)
[2016-06-26] MEDS ORDERED: TRAMADOL HCL 50 MG TAB PO PRN (09:45)
[2016-06-26] MEDS ORDERED: BISACODYL 10 MG SUPP PR PRN (09:45)
[2016-06-26] MEDS ORDERED: SOD PHOSPHATE/SOD BIPHOSPHATE ENEMA 132 ML BTL PR PRN (09:45)
[2016-06-26] MEDS ORDERED: ALUMINUM/MAGNESIUM/SIMETH (MAALOX MAX) 30 ML UDC PO PRN (09:45)
[2016-06-26] MEDS ORDERED: ZOLPIDEM TARTRATE 5 MG TAB PO PRN (09:45)
[2016-06-26] MEDS ORDERED: DiphenhydrAMINE HCL 50 MG/ML VIAL IV PRN (09:45)
[2016-06-26] MEDS ORDERED: VANCOMYCIN INJ 2,200 MG in SODIUM CHLORIDE 0.9% 250ML 250 ML IV SCH (09:45)
[2016-06-26] MEDS ORDERED: METOCLOPRAMIDE HCL INJ 5 MG/ML 2 ML VIAL IV PRN (09:45)
[2016-06-26] MEDS ORDERED: MoRPHine SULFATE 4 MG/ML 1 ML CARP\\VIAL IV PRN (09:45)
[2016-06-26] MEDS: FENTANYL CITRATE INJ 50 MCG/1 ML 2 ML VIAL IV PRN ×4 (10:07→10:22)
--- NOTE | 2016-06-26 10:35 | OPERATIVE REPORT ---
DATE OF OPERATION: 06/26/2016 PREOPERATIVE DIAGNOSIS: Persistent wound drainage, right hip, rule out infection, morbid obesity, BMI of 50. POSTOPERATIVE DIAGNOSIS: Same. PROCEDURE: 1. I\T\D, exploration, right hip. 2. Revision acetabular liner and revision femoral head. 3. Placement of antibiotic beads. SURGEON: Anton Oconnor MD. RV DETAILER: Amparo Nolasco PA-C. ANESTHESIA: General. BLOOD LOSS: 500 mL. REPLACEMENT FLUIDS: 2200 mL crystalloid. DRAINS: None. CULTURES: Aerobic and anaerobic, Gram stain I showing rare WBCs, no organisms. COMPLICATIONS: None. COMPONENTS USED: Dahl and Neph[employer] Mobile [employer]ology hip system. Acetabular liner size 56, femoral head +8 36 mm. NOTE: Amparo Nolasco PA-C was present and assisted throughout due to the complicated nature. She helped with preparation and set up, first assisted throughout and personally closed the fascial layer. The skin layer was left open. INDICATION FOR THE PROCEDURE: This patient is a morbidly obese 66-year-old male with a known history of severe arthritis who has been status post previous knee replacements. He had severe hip pain essentially wheelchair bound and underwent hip replacement surgery approximately 7 weeks earlier. The patient had an initial uneventful course. Over the last few weeks he became weak, did not have discomfort, fever, or chills but began developing having some drainage from the distal part of his hip. He continued to have persistent copious serous drainage and was admitted for exploration and I\T\D. DESCRIPTION: Following satisfactory general, the patient was placed in the lateral decubitus position. Sites were padded appropriately. The patient was secured with a lateral body positioner. The hip was prepared with ChloraPrep and draped sterilely. Following a surgical timeout, the distal portion of the incision was entered. About 4 inches into the fat layer the cavity was found. The cavity tracked all the way up to the buttocks. Therefore, the entire incision was opened. It was apparent very quickly this cavity went clear down to the hip. Using the Versajet system and working from superficial to deep each layer was cleaned thoroughly. First the subcutaneous fat layer and fascial layer. Then the deep muscle layer including the dehiscence. This was extended down over the proximal femoral bone and into the hip capsule. A total of 7 liters of Versajet fluid was used to debride the soft tissues. Cultures were taken and Gram stain reported previously. The hip appeared to be well fixed. The hip was dislocated. The femoral head and polyethylene liner were removed and again Versajet was used to debride and clean around the acetabulum and also again around the proximal femur and the intracapsular region. When it was felt to be clean Betadine scrub and soak was used to remove the biofilm from the acetabular liner and the trunnion. After a 5 minute Betadine soak was performed. The Betadine was then irrigated with 6 liters of pulsatile lavage. The wound appeared clean and dry. The surgical team regloved, another drape was applied, new instruments were used. A polyethylene liner was placed as well as a new femoral head. 30 mL of Stimulan beads using 4 grams of vancomycin was then placed. The vastus gluteus split was repaired using three #5 FiberWire sutures and drill holes. The remainder of the muscle layer was closed with 1 Vicryl medicated suture interrupted. The fascial layer was then closed with #1 Vicryl medicated sutures interrupted. Packing was placed in the wound as well as a surface dressing. It was discussed with Dr. Morrison from wound management to leave the fatty layer open and use an irrigation wound VAC, which will be placed in the recovery room. The patient was returned to his bed and taken to the recovery room in stable condition. I attest to the content of the Intraoperative Record and any orders documented therein. Any exceptio ns are noted below.
--- NOTE | 2016-06-26 11:02 | Anesthesiology Progress Note ---
Anesthesia Post Op Note Date & Time Jun 26, 2016 at 11:02 Vital Signs Pain Intensity: 4 Vital Signs Past 12 Hours Date Time Temp Pulse Resp B/P Pulse Ox O2 Delivery O2 Flow Rate FiO2 06/26/16 10:50 36.1 66 16 117/57 98 Nasal Cannula 2 06/26/16 10:40 65 16 95/56 98 Nasal Cannula 2 06/26/16 10:30 67 16 103/61 98 Nasal Cannula 2 06/26/16 10:20 67 16 152/74 100 Mask 10 06/26/16 10:10 69 16 129/65 99 Mask 10 06/26/16 10:01 36.4 72 16 118/67 98 Mask 10 06/26/16 05:45 36.5 65 18 155/105 99 Room Air Notes Mental Status: alert / awake / arousable, participated in evaluation Pt Amnestic to Procedure: Yes Nausea / Vomiting: adequately controlled Pain: adequately controlled Airway Patency, RR, SpO2: stable & adequate BP & HR: stable & adequate Hydration State: stable & adequate Anesthetic Complications: no major complications apparent
[2016-06-26] MEDS: HYDROmorphone INJ 1 MG/ML SYR IV PRN ×2 (11:08→11:13)
--- NOTE | 2016-06-26 11:11 | DIAGNOSTIC IMAGING REPORT ---
RIGHT PELVIS/UNILATERAL HIP 1 VIEW CLINICAL HISTORY: IN PACU - A/P PELVIS and LATERAL HIP INCLUDING ALL OF IMPLANT Right infection COMPARISON: 05/08/2016 DISCUSSION: Total right hip replacement is present. Interval placement of multiple radiopaque pellets reasonably antibiotics in nature. There is no evidence for soft tissue swelling. IMPRESSION: Radiopaque pellets placed circumferentially about the patient's right hip arthroplasty Electronically signed by: Reymundo Cortes M.D. 06/26/2016 11:10 AM Dictated Date/Time: 06/26/2016 11:09 AM
[2016-06-26] MEDS ORDERED: HYDROmorphone INJ 2 MG/ML SYR/VIAL ONE (11:13)
--- NOTE | 2016-06-26 12:44 | Progress Note ---
Progress Note Date of Service Jun 26, 2016. Progress Note ID Consult Dictated # [id number] A/P: 1. R hip infection -Continue abx, add zosyn, follow culture results -will follow, thank you
[2016-06-26 13:00] LABS: BASO % 0.4 %; BASO ABS # 0.03 K/uL (0-0.2); COMPLETE YES; EOS % 0.2 %; HEMATOCRIT 30.8 % (42-52); IG% 0.5 %; LYMPH % 12.1 %; LYMPH ABS # 1.01 K/uL (1.2-3.4); MEAN CELL VOLUME 85.8 fL (80-100); MEAN CORPUSCULAR HEMOGLOBIN 28.1 pg (25-34); MEAN CORPUSCULAR HGB CONC 32.8 g/dl (32-36); MEAN PLATELET VOLUME 9.7 fL (7.4-10.4); NEUT % 85.8 %; PLATELET COUNT 376 K/uL (130-400); RED BLOOD COUNT 3.59 M/uL (4.7-6.1); WHITE BLOOD COUNT 8.33 K/uL (4.8-10.8)
[2016-06-26] MEDS ORDERED: VANCOMYCIN CONSULT ACTIVE PRN (13:00)
[2016-06-26] MEDS ORDERED: PIPERACILL/TAZOBAC CONSULT ACTIVE PRN (13:00)
[2016-06-26] MEDS ORDERED: PIPERACILL/TAZOBAC IV 4.5 GM in DEXTROSE 5% 100ML IV ONE (13:15)
[2016-06-26 13:25] LABS: BUN/CREATININE RATIO 18.7 (10-20); CALCIUM 8.3 mg/dl (8.5-10.1); CREATININE 0.77 mg/dl (0.60-1.40); POTASSIUM 4.6 mmol/L (3.5-5.1)
[2016-06-26 13:28] LABS: ALB/GLOB RATIO 0.8 (0.9-2)
--- NOTE | 2016-06-26 13:28 | INFECT. DISEASE CONSULTATION ---
DATE OF CONSULTATION: 06/26/2016 REQUESTING PHYSICIAN: Dr. Oconnor. HISTORY OF PRESENT ILLNESS: This is a 66-year-old gentleman who was admitted after he had persistent drainage of his right hip incision. He did undergo a total hip replacement on May 08. He initially tolerated this well but states soon postoperatively, he did have dehiscence of the wound. This happened initially while he was away on a cruise. He returned and was placed on Keflex but did not have much response to this. He was then placed on a second antibiotic, which he does not remember the name but continued to have drainage and does not feel he had significant improvement. A decision was made to bring the patient and then undergo I\T\D. He had this performed this morning. He did have antibiotic beads placed. Intraoperative cultures were taken. The Gram stain is showing few WBCs with no organisms. He has been placed empirically on vancomycin. He denies any fevers or chills at home. He does describe the drainage to be purulent. Wound care nursing did come to evaluate the patient for VAC placement; however, he did have significant bleeding and saturation of his gauze and the decision was made to postpone VAC placement. He currently has no pain. He states he was not having significant pain at home but did have persistent drainage from the wound. He denies any previous cultures. There are no other cultures available for review on the system. Currently, he denies any chest pain, cough, shortness of breath, nausea, vomiting or diarrhea. His is present during my examination. All remaining review of systems are reviewed and are negative. PAST MEDICAL HISTORY: Significant for DVT, hypertension, obstructive sleep apnea, obesity. PAST SURGICAL HISTORY: Significant for bilateral knee replacements, inguinal hernia repair, cholecystectomy, appendectomy, hip replacement with revision earlier today. FAMILY HISTORY: Noncontributory. SOCIAL HISTORY: Negative for alcohol, tobacco or drug use. He is and lives with his . ALLERGIES: He denies any medication allergies. CURRENT MEDICATIONS: Include multivitamins, Protonix, allopurinol, atenolol, Proscar, Inderal, Senokot, nortriptyline, Flomax, vancomycin, Toradol, oxycodone, morphine, Tylenol, milk of magnesia, Dulcolax, Benadryl, Maalox, Ambien, Zofran, Reglan, Ultram and potassium. PHYSICAL EXAMINATION: VITAL SIGNS: He is afebrile, pulse 64, respiratory rate is 16, blood pressure is 99/55, oxygen saturation is 99% on 2 liters. GENERAL: He is awake, alert and oriented x3. HEENT: Mucous membranes are moist. HEART: Regular. LUNGS: Clear. ABDOMEN: Soft. EXTREMITIES: Hip dressing was removed with wound care. The wound is packed with gauze but does have bleeding. No purulent drainage was noted. There is no edema. SKIN: Without rash. LABORATORY STUDIES: CBC was most recently done on the 09 of May and white blood cell count at that time was 13. There has been no chemistry panel obtained this admission. Micro is pending. Postop x-ray shows the joint to be in place. ASSESSMENT AND PLAN: Wound dehiscence with likely infection. He has been on oral antibiotics prior to admission and this may affect cultures; however, he will remain on broad spectrum antibiotics pending additional culture results. Zosyn will be added to vancomycin for gram negative coverage. Vancomycin dosing may be difficult in this patient secondary to obesity; however, I will wait for additional culture data to make further antibiotic recommendations. Routine laboratory studies will be ordered as well. Thank you for this consultation.
[2016-06-26] MEDS: D5W AND 1/2NSS + 20MEQ KCL 1,000 ML IV SCH ×2 (13:50→23:30)
[2016-06-26] MEDS: ACETAMINOPHEN 500 MG TAB PO SCH ×2 (13:50→20:43)
[2016-06-26] MEDS: OXYCODONE HCL IR 5 MG TAB (IMMEDIATE RELEASE) PO PRN (13:50)
[2016-06-26] MEDS ORDERED: KETOROLAC TROMETHAMINE 15 MG/ML VIAL IV. PRN (14:00)
--- NOTE | 2016-06-26 14:32 | Pharmacy Progress Note ---
Pharmacy Antibiotic Consult Date of Service: Jun 26, 2016. Pharmacy Dosing Scope Pharmacy is consulted to initiate vancomycin and zosyn IV dosing therapy, order appropriate labs and adjust drug dose/frequency. Subjective The patient is a 66 year old male admitted on Jun 26, 2016 at 09:48. Objective Height (Feet): 5 Height (Inches): 10 Weight (Kilograms): 154.55 Lab Results (24hrs): Laboratory Tests Test 06/26/16 12:35 BUN/Creatinine Ratio 18.7 Blood Urea Nitrogen 14 mg/dl Creatinine 0.77 mg/dl White Blood Count 8.33 K/uL Red Blood Count 3.59 M/uL Hemoglobin 10.1 g/dL Hematocrit 30.8 % Mean Corpuscular Volume 85.8 fL Mean Corpuscular Hemoglobin 28.1 pg Mean Corpuscular Hemoglobin Concent 32.8 g/dl Platelet Count 376 K/uL Mean Platelet Volume 9.7 fL Neutrophils (%) (Auto) 85.8 % Lymphocytes (%) (Auto) 12.1 % Monocytes (%) (Auto) 1.0 % Eosinophils (%) (Auto) 0.2 % Basophils (%) (Auto) 0.4 % Neutrophils # (Auto) 7.15 K/uL Lymphocytes # (Auto) 1.01 K/uL Monocytes # (Auto) 0.08 K/uL Eosinophils # (Auto) 0.02 K/uL Basophils # (Auto) 0.03 K/uL Assessment & Plan Patient started on vancomycin and zosyn due to right hip infection. ID is following the patient. Drainage/hip culture is pending. Vancomycin: * Patient received preop dose this am of vancomycin 2300 mg (~15 mg/kg) ; confirmed with OR nurse that this was given, originally not charted on * Will dose with vancomycin 1500 mg iv q 10 hrs to achieve an estimated trough of ~15-20 mcg/ml (goal for bone/joint infection) * Was less aggressive with dose due to risk of drug accumulation since elevated BMI * Will plan to start this dosing early due to only partial loading dose given * Will order a trough prior to the 3rd maintenance dose to ensure patient is therapeutic and not accumulating vancomycin too fast (concern for drug accumulation b/c of increased BMI~48 kg/m2); this will be before steady state * Estimated kinetics: t1/2~8 hrs, ke~0.08 hr-1, CrCl >100 ml/min Zosyn: * 4.5 gm x 1 given; will order 4.5 gm iv q 8 hrs which is appropriate for CrCl> 20 ml/min and BMI>35 kg/m2 Pharmacy will continue to follow and will adjust dose/frequency as necessary. Thank you
[2016-06-26] MEDS ORDERED: WARFARIN SOD 5 MG TAB PO SCH (16:00)
[2016-06-26] MEDS: VANCOMYCIN INJ 1,500 MG in SODIUM CHLORIDE 0.9% 500ML 500 ML IV SCH (16:20)
[2016-06-26] MEDS ORDERED: PIPERACILL/TAZOBAC IV 3.375 GM in DEXTROSE 5% 100ML 100 ML IV SCH (18:00)
[2016-06-26] MEDS: PIPERACILL/TAZOBAC IV 4.5 GM in DEXTROSE 5% 100ML IV SCH (19:40)
[2016-06-26] MEDS: NORTRIPTYLINE HCL 10 MG CAP PO SCH (20:42)
[2016-06-26] MEDS: TAMSULOSIN HCL 0.4 MG CAP PO SCH (20:42)
[2016-06-26] MEDS: SENNA 8.6 MG TAB PO SCH (20:44)
[2016-06-27] MEDS: VANCOMYCIN INJ 1,500 MG in SODIUM CHLORIDE 0.9% 500ML 500 ML IV SCH ×3 (01:37→23:27)
[2016-06-27 04:07] VITALS: BP 121/73; PULSE 74; TEMP 36.8; O2SAT 94
[2016-06-27] MEDS: PIPERACILL/TAZOBAC IV 4.5 GM in DEXTROSE 5% 100ML IV SCH ×3 (04:15→20:11)
[2016-06-27] MEDS: ACETAMINOPHEN 500 MG TAB PO SCH ×3 (05:45→20:14)
[2016-06-27 06:51] LABS: BASO % 0.4 %; BASO ABS # 0.05 K/uL (0-0.2); EOS % 0.3 %; HEMATOCRIT 26.7 % (42-52); IG% 0.4 %; LYMPH % 13.6 %; LYMPH ABS # 1.55 K/uL (1.2-3.4); MEAN CELL VOLUME 84.8 fL (80-100); MEAN CORPUSCULAR HEMOGLOBIN 27.9 pg (25-34); MEAN PLATELET VOLUME 9.7 fL (7.4-10.4); MONO % 9.9 %; NEUT % 75.4 %; PLATELET COUNT 340 K/uL (130-400); RED BLOOD COUNT 3.15 M/uL (4.7-6.1); WHITE BLOOD COUNT 11.37 K/uL (4.8-10.8)
[2016-06-27 06:57] VITALS: BP 101/61; PULSE 82; TEMP 36.7; O2SAT 92
[2016-06-27 06:57] LABS: INR 1.1 (0.9-1.1); PROTHROMBIN TIME (PATIENT) 11.5 SECONDS (9.0-12.0)
[2016-06-27 07:21] LABS: BUN/CREATININE RATIO 18.9 (10-20); CALCIUM 8.4 mg/dl (8.5-10.1); CREATININE 0.84 mg/dl (0.60-1.40); POTASSIUM 4.6 mmol/L (3.5-5.1)
[2016-06-27 07:22] LABS: COMPLETE YES
[2016-06-27] MEDS: OXYCODONE HCL IR 5 MG TAB (IMMEDIATE RELEASE) PO PRN ×3 (07:28→18:51)
--- NOTE | 2016-06-27 08:11 | Orthopedic Progress Note ---
Orthopedic Progress Note Date of Service Jun 27, 2016. Subjective Post OP Day: 1 Reports: feeling well, Denies: complaints Additional Notes: No new complaints. States that IV team felt he may be a difficult placement issue. Hydrating over the night and they are to reassess today. Pt states the only time he needed a Picc line, it was not possible and they had to place a Marie type catheter. Objective calves soft nontender, N/V intact, hip located, dressing C/D/I, A&O x3, toes mobile Irrigation Wound Vac Functioning on right hip Date Time Temp Pulse Resp B/P Pulse Ox O2 Delivery O2 Flow Rate FiO2 06/27/16 06:57 36.7 82 17 101/61 92 Room Air 06/27/16 04:07 36.8 74 18 121/73 94 CPAP 06/26/16 23:30 Room Air CPAP 06/26/16 22:56 36.7 75 18 94/52 95 CPAP 06/26/16 19:49 36.3 63 18 108/68 96 Room Air 06/26/16 16:00 96 Room Air 06/26/16 15:30 36.5 55 18 101/61 96 Room Air 06/26/16 14:09 36.5 53 18 99/61 94 Room Air 06/26/16 13:11 36.6 55 17 96/61 98 Room Air 06/26/16 12:30 55 16 100/63 97 06/26/16 12:00 Nasal Cannula 2.0 06/26/16 12:00 100 Nasal Cannula 2.0 06/26/16 12:00 36.4 57 14 95/59 100 Nasal Cannula 2.0 06/26/16 11:47 36.2 06/26/16 11:30 64 16 99/55 99 Nasal Cannula 2 06/26/16 11:15 60 16 108/51 99 Nasal Cannula 2 06/26/16 11:00 69 16 112/52 99 Nasal Cannula 2 06/26/16 10:50 36.1 66 16 117/57 98 Nasal Cannula 2 06/26/16 10:40 65 16 95/56 98 Nasal Cannula 2 06/26/16 10:30 67 16 103/61 98 Nasal Cannula 2 06/26/16 10:20 67 16 152/74 100 Mask 10 06/26/16 10:10 69 16 129/65 99 Mask 10 06/26/16 10:01 36.4 72 16 118/67 98 Mask 10 Laboratory Results 24 Hours: Test 06/26/16 12:35 06/27/16 06:12 White Blood Count 8.33 K/uL 11.37 K/uL Red Blood Count 3.59 M/uL 3.15 M/uL Hemoglobin 10.1 g/dL 8.8 g/dL Hematocrit 30.8 % 26.7 % Mean Corpuscular Volume 85.8 fL 84.8 fL Mean Corpuscular Hemoglobin 28.1 pg 27.9 pg Mean Corpuscular Hemoglobin Concent 32.8 g/dl 33.0 g/dl Platelet Count 376 K/uL 340 K/uL Mean Platelet Volume 9.7 fL 9.7 fL Neutrophils (%) (Auto) 85.8 % 75.4 % Lymphocytes (%) (Auto) 12.1 % 13.6 % Monocytes (%) (Auto) 1.0 % 9.9 % Eosinophils (%) (Auto) 0.2 % 0.3 % Basophils (%) (Auto) 0.4 % 0.4 % Neutrophils # (Auto) 7.15 K/uL 8.56 K/uL Lymphocytes # (Auto) 1.01 K/uL 1.55 K/uL Monocytes # (Auto) 0.08 K/uL 1.13 K/uL Eosinophils # (Auto) 0.02 K/uL 0.03 K/uL Basophils # (Auto) 0.03 K/uL 0.05 K/uL Prothromb Time International Ratio 1.1 Prothrombin Time 11.5 SECONDS Assessment & Plan Assessment: Infected Right SURJIT Plan: PT/OT Continuing irrigation wound vac over the weekend with plans to convert to regular wound vac at the beginning of the week if all goes well. IV antibx as per ID Team - Currently Zosyn and Vancomycin Cx pending at this time Hoping to have Picc line placed today. If unsuccessful, may need a Marie vs A Port placement. Inhouse Planning Pain Management: Toradol, Ultram, Morphine, PO Tylenol, Oxy IR DVT Prophylaxis: TEDs, SCDs, ASA Discharge Planning Discharge Planning: uncertain
[2016-06-27] MEDS: D5W AND 1/2NSS + 20MEQ KCL 1,000 ML IV SCH (09:00)
[2016-06-27] MEDS ORDERED: PROPRANOLOL HCL 60 MG LA CAP PO SCH (09:00)
[2016-06-27] MEDS: MULTIVITAMIN TAB PO SCH (09:03)
[2016-06-27] MEDS: ALLOPURINOL 300 MG TAB PO SCH (09:03)
[2016-06-27] MEDS: LOSARTAN/HCTZ 50-12.5 EA TAB PO SCH (09:03)
[2016-06-27] MEDS: FINASTERIDE 5 MG TAB PO SCH (09:03)
[2016-06-27] MEDS: PANTOprazole SOD 40 MG TAB PO SCH (09:04)
[2016-06-27 09:45] VITALS: BP 110/76; PULSE 80
[2016-06-27] MEDS ORDERED: VANCOMYCIN TROUGH ONE (11:30)
--- NOTE | 2016-06-27 13:35 | Pharmacy Progress Note ---
Pharmacy Antibiotic Prog Note Date of Service: Jun 27, 2016. Subjective: The patient is currently receiving vancomycin 1500 mg IV every 10 hours. The patient is currently on day # 2 of IV therapy. Objective: Height (Feet): 5 Height (Inches): 10 Weight (Kilograms): 154.55 Levels: Item Value Date Time Vancomycin Level Trough 16.4 mcg/ml 06/27/16 1110 Lab Results (24hrs): Laboratory Tests Test 06/27/16 06:12 BUN/Creatinine Ratio 18.9 Blood Urea Nitrogen 16 mg/dl Creatinine 0.84 mg/dl White Blood Count 11.37 K/uL Red Blood Count 3.15 M/uL Hemoglobin 8.8 g/dL Hematocrit 26.7 % Mean Corpuscular Volume 84.8 fL Mean Corpuscular Hemoglobin 27.9 pg Mean Corpuscular Hemoglobin Concent 33.0 g/dl Platelet Count 340 K/uL Mean Platelet Volume 9.7 fL Neutrophils (%) (Auto) 75.4 % Lymphocytes (%) (Auto) 13.6 % Monocytes (%) (Auto) 9.9 % Eosinophils (%) (Auto) 0.3 % Basophils (%) (Auto) 0.4 % Neutrophils # (Auto) 8.56 K/uL Lymphocytes # (Auto) 1.55 K/uL Monocytes # (Auto) 1.13 K/uL Eosinophils # (Auto) 0.03 K/uL Basophils # (Auto) 0.05 K/uL Assessment & Plan: This drug level is: Therapeutic Change to vancomycin 1500 mg IV every 12 hours. (Patient's body habitus indicates that he will accumulate drug as time goes on. Therefore even though level is therapeutic, I prophylactically decreased the dose by 20% to keep the trough within goal rather than supratherapeutic) Goal peak level estimate: between 35 - 40 mcg/mL. Goal trough level estimate: between 15 - 20 mcg/mL (indication: joint infection ). Trough has been ordered for: prior to 11 dose. Pharmacy will continue to follow and will adjust dose/frequency as necessary. Thank you
[2016-06-27 16:00] VITALS: BP 124/78; PULSE 77; TEMP 36.5; O2SAT 96
[2016-06-27] MEDS ORDERED: WARFARIN SOD 5 MG TAB PO SCH (16:00)
[2016-06-27] MEDS: SENNA 8.6 MG TAB PO SCH (20:14)
[2016-06-27] MEDS: NORTRIPTYLINE HCL 10 MG CAP PO SCH (20:14)
[2016-06-27] MEDS: TAMSULOSIN HCL 0.4 MG CAP PO SCH (20:14)
[2016-06-27 22:59] VITALS: BP 115/70; PULSE 74; TEMP 36.8; O2SAT 97
[2016-06-28] VITALS (8 sets, daily range): BP systolic 95–141; BP diastolic 57–84; PULSE 69–87; TEMP 36.5–36.9; O2SAT 92–100
[2016-06-28] MEDS: PIPERACILL/TAZOBAC IV 4.5 GM in DEXTROSE 5% 100ML IV SCH ×3 (03:14→19:25)
[2016-06-28] MEDS: ACETAMINOPHEN 500 MG TAB PO SCH ×3 (05:26→20:56)
[2016-06-28] MEDS: OXYCODONE HCL IR 5 MG TAB (IMMEDIATE RELEASE) PO PRN ×3 (05:28→19:26)
[2016-06-28 06:17] LABS: CREATININE 0.94 mg/dl (0.60-1.40)
[2016-06-28 08:02] LABS: HEMATOCRIT 23.4 % (42-52); MEAN CELL VOLUME 84.2 fL (80-100); MEAN CORPUSCULAR HEMOGLOBIN 28.1 pg (25-34); MEAN CORPUSCULAR HGB CONC 33.3 g/dl (32-36); MEAN PLATELET VOLUME 9.7 fL (7.4-10.4); PLATELET COUNT 303 K/uL (130-400); RED BLOOD COUNT 2.78 M/uL (4.7-6.1); WHITE BLOOD COUNT 8.92 K/uL (4.8-10.8)
[2016-06-28 08:36] LABS: BUN/CREATININE RATIO 20.6 (10-20); CALCIUM 8.2 mg/dl (8.5-10.1); CREATININE 0.88 mg/dl (0.60-1.40)
--- NOTE | 2016-06-28 09:32 | Orthopedic Progress Note ---
Orthopedic Progress Note Date of Service Jun 28, 2016. Subjective Post OP Day: 2 Reports: feeling well, Denies: SOB, calf pain, chest pain, light headedness, nausea / vomiting Additional Notes: Nursing states patient lost IV access this AM. 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 Objective calves soft nontender, N/V intact, hip located, dressing C/D/I, A&O x3, toes mobile Date Time Temp Pulse Resp B/P Pulse Ox O2 Delivery O2 Flow Rate FiO2 06/28/16 07:17 36.9 87 20 114/72 98 Room Air 06/27/16 22:59 36.8 74 20 115/70 97 Room Air 06/27/16 20:14 Room Air 06/27/16 16:00 36.5 77 18 124/78 96 Room Air 06/27/16 16:00 Room Air 06/27/16 09:45 80 Laboratory Results 24 Hours: Test 06/28/16 05:25 Hematocrit 23.4 % Hemoglobin 7.8 g/dL Assessment & Plan Assessment: Infected Right SURJIT Acute Blood Loss Anemia Plan: PT/OT Continuing irrigation wound vac over the weekend with plans to convert to regular wound vac at the beginning of the week if all goes well. IV antibx as per ID Team - Currently Zosyn and Vancomycin Cx pending at this time Picc line unobtainable. Dr Montalvo to place Marie Catheter today. Anemia - asymptomatic - will follow for now - may need transfusion. Inhouse Planning Pain Management: Toradol, Ultram, Morphine, PO Tylenol, Oxy IR DVT Prophylaxis: TEDs, SCDs, ASA Discharge Planning Discharge Planning: uncertain
[2016-06-28] MEDS ORDERED: ONDANSETRON INJ 2 MG/ML 2 ML VIAL IV PRN (10:00)
[2016-06-28] MEDS ORDERED: EpHEDrine SULFATE INJ 50 MG/ML AMP IV PRN (10:00)
[2016-06-28] MEDS ORDERED: ATROPINE SULFATE 0.1 MG/ML 5ML SYR IV PRN (10:00)
[2016-06-28] MEDS ORDERED: FENTANYL CITRATE INJ 50 MCG/1 ML 2 ML VIAL IV PRN (10:00)
[2016-06-28] MEDS ORDERED: PROPOFOL IV EMULSION 10 MG/ML 20 ML VIAL IV ONE ×2 (10:24→12:08)
[2016-06-28] MEDS ORDERED: LIDOCAINE HCL 2% 2 ML VIAL (20MG/ML) ONE (10:24)
[2016-06-28] MEDS ORDERED: FENTANYL CITRATE INJ 50 MCG/1 ML 2 ML VIAL ONE (10:25)
[2016-06-28] MEDS ORDERED: MIDAZOLAM HCL 1 MG/ML 2ML VIAL ONE ×2 (10:25→11:14)
--- NOTE | 2016-06-28 10:41 | CONSULTATION REPORT ---
DATE OF CONSULTATION: 06/28/2016 Room #309. HISTORY OF PRESENT ILLNESS: We asked by the orthopedic service to try to place a long-lasting line on this gentleman who was need for 6 weeks' antibiotic for an infected hip. We will try to place a Marie catheter on him or an A-port. He has had a subclavian or PICC line on his left neck area in the past. At this point, the patient is aware of risks and complications of the surgery and we will proceed accordingly. He is n.p.o. at this time, we will add him on the rest of the day today. VITAL SIGNS: Last vitals showed a temperature of 36.9, pulse 87, respirations 20, blood pressure 114/72, O2 sats 98%. LABORAT[facility] [place]: His hemoglobin is 7.8 today, WBC is 8.92. BUN 16, creatinine 0.84. Coagulation - INR is 1.1. IMPRESSION AND PLAN: Risks and complications of surgery were explained to the patient will proceed accordingly later today.
[2016-06-28] MEDS ORDERED: LIDOCAINE HCL 1% 20 ML VIAL ONE (10:58)
[2016-06-28] MEDS ORDERED: CONRAY 60% 50 ML VIAL ONE (11:00)
[2016-06-28] MEDS ORDERED: HEPARIN SOD (PORCINE) 1000 UNIT/ML 10 ML VIAL ONE (11:02)
--- NOTE | 2016-06-28 12:29 | DIAGNOSTIC IMAGING REPORT ---
CHEST ONE VIEW PORTABLE CLINICAL HISTORY: post op COMPARISON STUDY: 04/09/2016 FINDINGS: The heart is borderline enlarged. There is a right subclavian central venous catheter. The tip projects over the superior vena cava. There is no pneumothorax. There is no focal pulmonary consolidation. There is no failure.[ IMPRESSION: 1. Right subclavian central venous catheter. No evidence of pneumothorax 2. No active disease in the chest Electronically signed by: Reid Burrell M.D. 06/28/2016 12:28 PM Dictated Date/Time: 06/28/2016 12:27 PM
--- NOTE | 2016-06-28 12:45 | Anesthesiology Progress Note ---
Anesthesia Post Op Note Date & Time Jun 28, 2016 at 12:45 Vital Signs Pain Intensity: 0 Vital Signs Past 12 Hours Date Time Temp Pulse Resp B/P Pulse Ox O2 Delivery O2 Flow Rate FiO2 06/28/16 12:31 36.2 78 20 158/88 100 Room Air 06/28/16 12:26 36.2 77 20 175/80 95 Room Air 06/28/16 12:15 36.1 77 20 144/92 95 Room Air 06/28/16 12:03 35.8 75 20 175/91 98 Room Air 06/28/16 07:17 36.9 87 20 114/72 98 Room Air 06/28/16 07:15 Room Air Notes Mental Status: alert / awake / arousable, participated in evaluation Pt Amnestic to Procedure: Yes Nausea / Vomiting: adequately controlled Pain: adequately controlled Airway Patency, RR, SpO2: stable & adequate BP & HR: stable & adequate Hydration State: stable & adequate Anesthetic Complications: no major complications apparent
[2016-06-28] MEDS: ALLOPURINOL 300 MG TAB PO SCH (12:57)
[2016-06-28] MEDS: LOSARTAN/HCTZ 50-12.5 EA TAB PO SCH (12:57)
[2016-06-28] MEDS: FINASTERIDE 5 MG TAB PO SCH (12:57)
[2016-06-28] MEDS: PANTOprazole SOD 40 MG TAB PO SCH (12:58)
[2016-06-28] MEDS: MULTIVITAMIN TAB PO SCH (12:58)
[2016-06-28] MEDS: VANCOMYCIN INJ 1,500 MG in SODIUM CHLORIDE 0.9% 500ML 500 ML IV SCH ×2 (13:03→23:18)
[2016-06-28 13:50] LABS: INR 1.1 (0.9-1.1); PROTHROMBIN TIME (PATIENT) 11.4 SECONDS (9.0-12.0)
[2016-06-28] MEDS ORDERED: WARFARIN SOD 6 MG TAB PO ONE (16:00)
--- NOTE | 2016-06-28 17:21 | OPERATIVE REPORT ---
DATE OF OPERATION: 06/28/2016 SURGEON: Dr. Montalvo. PREOPERATIVE DIAGNOSIS: Infected right hip, need long-term antibiotic, lacks venous access. POSTOPERATIVE DIAGNOSIS: Same. PROCEDURE: Right hip and placement single lumen right subclavian. SUMMARY: The patient was brought into the operating room theater. Right chest and neck was prepped with Betadine scrub and solution and properly draped. IV sedation was given. Local anesthetic was used to infiltrate at the end of the clavicle subclavian area. We accessed the vein with one single passage without any difficulty. A guidewire was hard to visualize. The patient has nearly a BMI of 50, but we are able to see it going towards the heart and had PVCs, so we were in the right position. At this point, I made a counter incision about 2 inches below that, sufficient enough that we would pass the Marie catheter through there and we did. We placed the Dacron cuff, right at the entry site. After we placed the tunneler through the initial subclavian site, we were able then to place the Marie catheter and cut it appropriately, what appeared to be in the superior vena cava right atrial area just on the patient's chest, but again the imaging was very weak because of his size. At this point we dilated the tract sufficient up for the introducer and placed the Marie catheter and as best we could tell it appeared to be in the heart, although it was rotated. I put some contrast in and it appeared to be in the right ventricle, although I did not see any PVCs. I was uncomfortable, it seemed like it was too far in, therefore we changed the image and pulled it back a little bit by making a counter incision inferior to that where we were able then to pass the apparatus and the lip of the Marie catheter back inferiorly above the right breast. At this point, we aspirated and flushed easily and appeared to be better position. We then closed the individual sites of entry of the lumen and the subcutaneous area with interrupted [id number] nylon suture to close each one of those wounds. The catheter was then attached to the skin edges with 2-0 silk suture tie. The cuff was underneath the distal incision for approximately half an inch or so. Prior to leaving the room we aspirated and flushed easily. We placed 2 x 2 and Op-Site individual dressing. The patient was taken to recovery in good condition. I attest to the content of the Intraoperative Record and any orders documented therein. Any exceptio ns are noted below.
[2016-06-28 18:29] LABS: HEMATOCRIT 25.4 % (42-52)
[2016-06-28] MEDS: SENNA 8.6 MG TAB PO SCH (20:43)
[2016-06-28] MEDS: TAMSULOSIN HCL 0.4 MG CAP PO SCH (20:56)
[2016-06-28] MEDS: NORTRIPTYLINE HCL 10 MG CAP PO SCH (20:57)
[2016-06-29] VITALS (7 sets, daily range): BP systolic 114–150; BP diastolic 75–89; PULSE 76–93; TEMP 36.4–36.9; O2SAT 99–100
[2016-06-29] MEDS: PIPERACILL/TAZOBAC IV 4.5 GM in DEXTROSE 5% 100ML IV SCH ×3 (03:46→20:21)
[2016-06-29] MEDS: ACETAMINOPHEN 500 MG TAB PO SCH ×3 (05:05→21:13)
--- NOTE | 2016-06-29 05:43 | SURGERY PROGRESS NOTE ---
DATE: 06/29/2016 SUBJECTIVE: John's is first postoperative day status post a Marie catheter placement and is functioning well. The dressing in one area is saturated with some blood. We asked the nurses to change that. The postop chest x-ray visualized the catheter in superior vena cava, actually I thought it was much lower, but we had a very hard time imaging the catheter even with contrast given at the time of surgery due to his large size. But having said that is working properly and this was discussed with the patient. I will leave further management and care of the catheter to the nurses and leave the discharge to their discretion, as far as the primary service. The patient does have some sutures at the insertion site on that and that needs to come out, probably in approximately 10 days. We can certainly do it in the office and follow up in the office patient discharge. PANCHO
[2016-06-29 06:59] LABS: INR 1.1 (0.9-1.1); PROTHROMBIN TIME (PATIENT) 12.2 SECONDS (9.0-12.0)
[2016-06-29] MEDS: PANTOprazole SOD 40 MG TAB PO SCH (07:16)
[2016-06-29] MEDS: LOSARTAN/HCTZ 50-12.5 EA TAB PO SCH (07:16)
[2016-06-29] MEDS: FINASTERIDE 5 MG TAB PO SCH (07:16)
[2016-06-29] MEDS: MULTIVITAMIN TAB PO SCH (07:17)
[2016-06-29] MEDS: ALLOPURINOL 300 MG TAB PO SCH (07:17)
[2016-06-29] MEDS: OXYCODONE HCL IR 5 MG TAB (IMMEDIATE RELEASE) PO PRN ×2 (07:22→12:36)
[2016-06-29 07:25] LABS: CREATININE 0.78 mg/dl (0.60-1.40)
--- NOTE | 2016-06-29 08:29 | Anesthesiology Progress Note ---
Anesthesia Post Op Note Date & Time Jun 29, 2016 at 08:28 Vital Signs Pain Intensity: 3.0 Vital Signs Past 12 Hours Date Time Temp Pulse Resp B/P Pulse Ox O2 Delivery O2 Flow Rate FiO2 06/29/16 07:59 36.7 93 15 114/76 100 Room Air 06/29/16 06:41 36.7 84 16 150/75 100 Room Air 06/28/16 23:13 36.7 69 18 116/67 95 Room Air Notes Mental Status: alert / awake / arousable, participated in evaluation Pt Amnestic to Procedure: Yes Nausea / Vomiting: adequately controlled Pain: adequately controlled Airway Patency, RR, SpO2: stable & adequate BP & HR: stable & adequate Hydration State: stable & adequate Anesthetic Complications: no major complications apparent
[2016-06-29] MEDS ORDERED: VANCOMYCIN TROUGH SCH (10:30)
--- NOTE | 2016-06-29 10:44 | Progress Note ---
Subjective Date of Service: Jun 29, 2016. Subjective Pt evaluation today including: conversation w/ patient, conversation w/ family , physical exam, chart review, lab review pt oob to chair. s/p port yesterday, no pain at site. remains on vanco, tolerating well. No f/c. wound vac in place, some pain at hip but overall improved. 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 no n/v/d/abd pain, eating well. All remaining ros reviewed and are negative. Objective Vital Signs Date Time Temp Pulse Resp B/P Pulse Ox O2 Delivery O2 Flow Rate FiO2 06/29/16 10:13 100 Room Air 06/29/16 07:59 36.7 93 15 114/76 100 Room Air 06/29/16 07:05 Room Air 06/29/16 06:41 36.7 84 16 150/75 100 Room Air 06/28/16 23:13 36.7 69 18 116/67 95 Room Air 06/28/16 19:30 36.5 76 16 116/77 93 Room Air 06/28/16 19:00 Room Air 06/28/16 16:10 36.5 74 16 112/64 92 Room Air 06/28/16 15:30 Room Air 06/28/16 15:02 36.6 72 19 124/79 96 Room Air 06/28/16 14:59 76 96 06/28/16 13:21 36.5 79 17 129/84 97 Room Air 06/28/16 12:53 36.6 78 16 141/83 100 Room Air 06/28/16 12:50 Room Air 06/28/16 12:31 36.2 78 20 158/88 100 Room Air 06/28/16 12:26 36.2 77 20 175/80 95 Room Air 06/28/16 12:15 36.1 77 20 144/92 95 Room Air 06/28/16 12:03 35.8 75 20 175/91 98 Room Air Physical Exam General Appearance: WD/WN, no apparent distress Eyes: EOMI Neck: supple Respiratory/Chest: lungs clear Cardiovascular: regular rate, rhythm, no edema Abdomen: non tender, soft Extremities: non-tender, normal inspection, no pedal edema Neurologic/Psychiatric: alert, oriented x 3 Skin: normal color Comments: wound vac in place right chest port c/d/i, no surrounding erythema, induration, tenderness Laboratory Results Item Value Date Time Gram Stain - Final Resulted 06/26/16 0758 Drainage-Deep Hip , Right Last 24 Hours Test 06/28/16 12:57 06/28/16 18:17 06/29/16 06:20 06/29/16 10:30 Prothrombin Time 11.4 SECONDS 12.2 SECONDS Prothromb Time International Ratio 1.1 1.1 Hemoglobin 8.4 g/dL Hematocrit 25.4 % Creatinine 0.78 mg/dl Est Creatinine Clear Calc Drug Dose 137.3 ml/min Estimated GFR () 108.3 Estimated GFR (Non- 93.4 Assessment and Plan (1) Post op infection Assessment & Plan: will continue with vanco, culture negative, likely to remain negative secondary to previous abx. he would prefer to have abx at home, await insurance approval. will emperically change to pt to dapto as this is once daily infusion pending insurance approval. If he insurance not agreeable to IV dapto at home he could also utilize infusion center, he will await insurance coverage options but would prefer home IV dapto, if covered. will make change in abx and follow insurance approval. If dapto not covered, would continue with vanco as previously dosed. He will need 6 weeks IV abx, stop . Will need weekly cbc, chem 7, cpk, esr, crp while on abx. If pt d/c on vanco will need weekly trough as well, maintain 15-20 can follow with ID post d/ c, if pt to be followed at wound center for management of vac, can follow with ID there as well. will continue to follow.
[2016-06-29] MEDS: VANCOMYCIN INJ 1,500 MG in SODIUM CHLORIDE 0.9% 500ML 500 ML IV SCH ×2 (11:33→21:12)
--- NOTE | 2016-06-29 13:33 | PROGRESS NOTE ---
DATE: 06/29/2016 INPATIENT PROGRESS NOTE SUBJECTIVE: The patient is seen today in followup care for a postoperative wound to the right hip region following a VeraFlo wound VAC therapy. The patient has no complaints today. Denies any significant increase in pain. The patient denies any fever, chills or night sweats over the weekend. OBJECTIVE: The patient's vital signs were reviewed and found to be unremarkable. The patient is afebrile. The wound site today shows a clear clean base with no active bleeding noted. There is no periwound erythema, active drainage or odor present. No significant tenderness to palpation in the periwound region. ASSESSMENT: Postoperative wound, left thigh following incision and drainage and VeraFlo therapy. PLAN: At this time, the VeraFlo therapy will be discontinued, a wound VAC, black foam, 125 mm of negative pressure. Wound VAC changed Wednesday, Wednesday, Wednesday will be placed. The patient will be followed on an outpatient basis upon discharge. It is assumed that antibiotic therapy will be continued during this period. This was discussed in detail with the patient and he is in incomplete understanding.
--- NOTE | 2016-06-29 13:39 | CONSULTATION REPORT ---
DATE OF CONSULTATION: 06/26/2016 INPATIENT CONSULTATION CHIEF COMPLAINT: Postoperative right hip wound. HISTORY OF PRESENT ILLNESS: The patient underwent an incision and drainage of abscess formation from a right hip of postoperative hip replacement from 05/08/2016. The patient at the current time denies any significant increased pain in the area. The patient denies any recent fever, chills or night sweats. The patient denies any chest pain, shortness of breath, abdominal discomfort, nausea or vomiting. This case was discussed with Dr. Oconnor prior to the procedure where the recommendation was for able to be left open so then irrigating VeraFlo VAC could be applied. PAST SURGICAL HISTORY: As noted above with a prior hip replacement in April of this year PAST MEDICAL HISTORY: Hypertension, sleep apnea and morbid obesity. MEDICATIONS: Noted in the nursing notes were reviewed. ALLERGIES: None. REVIEW OF SYSTEMS: Ten systems were reviewed in their entirety and positive findings were noted in the chief complaint and history of present illness. PHYSICAL EXAMINATION: VITAL SIGNS: Also reviewed and found to be unremarkable. The patient is afebrile. GENERAL: The patient is lying in hospital bed in no acute distress, alert and cooperative throughout the examination. HEENT: Pupils equal and reactive to light. Sclerae clear. NECK: Supple. CHEST: Heart and lungs clear to auscultation. EXTREMITIES: Reveals the presence of an open postoperative wound on the lateral aspect of the right hip measuring 31 x 3 x 7.2 cm. There is some minimal clot noted in the base. There is no active bleeding present. There is no discharge or odor noted. No periwound erythema or fluctuance present. Distal neurovascular bundles intact. NEUROLOGIC: The patient is alert and oriented x3. No focal deficits noted. IMPRESSION: Postoperative wound to the left thigh following incision and drainage of an abscess. PLAN: At this time, a VeraFlo wound VAC will be applied with circulation of normal saline 10 minutes followed by VAC therapy at 100 mm of negative pressure for 2 hours, black foam applied. This will continue for the next 48-72 hours with the anticipation of converting to a plain home VAC back with a just black foam and 125 mm of negative pressure. The case was discussed with Dr. Oconnor and is in agreement with our plan of therapy.
--- NOTE | 2016-06-29 14:10 | Orthopedic Progress Note ---
Orthopedic Progress Note Date of Service Jun 29, 2016. Subjective Post OP Day: 3 Reports: feeling well, Denies: SOB, calf pain, chest pain, light headedness, nausea / vomiting Objective calves soft nontender, N/V intact, hip located, dressing C/D/I (REGULAR WOUND VAC PLACED), A&O x3, toes mobile Date Time Temp Pulse Resp B/P Pulse Ox O2 Delivery O2 Flow Rate FiO2 06/29/16 11:54 36.5 76 126/76 100 Room Air 06/29/16 10:13 100 Room Air 06/29/16 07:59 36.7 93 15 114/76 100 Room Air 06/29/16 07:05 Room Air 06/29/16 06:41 36.7 84 16 150/75 100 Room Air 06/28/16 23:13 36.7 69 18 116/67 95 Room Air 06/28/16 19:30 36.5 76 16 116/77 93 Room Air 06/28/16 19:00 Room Air 06/28/16 16:10 36.5 74 16 112/64 92 Room Air 06/28/16 15:30 Room Air 06/28/16 15:02 36.6 72 19 124/79 96 Room Air 06/28/16 14:59 76 96 Laboratory Results 24 Hours: Test 06/28/16 18:17 06/29/16 06:20 Hematocrit 25.4 % Hemoglobin 8.4 g/dL Prothromb Time International Ratio 1.1 Prothrombin Time 12.2 SECONDS Assessment & Plan Assessment: Infected Right SURJIT Acute Blood Loss Anemia Plan: PT/OT Continuing wound vac IV antibx as per ID Team - Currently ON VANCO. PREFER DAPTO UPON DISCHARGE. WILL NEED RX TO SEE IF APPROVED AND WHAT THE COST WILL BE. Cx pending at this time- NGTD, PATIENT WAS ON SEVERAL WEEKS OF PO ABX PRIOR TO CULTURES. Picc line unobtainable. Dr Montalvo to place Marie Catheter. Anemia - asymptomatic - will follow for now - may need transfusion. ORTHOPEDICALLY STABLE FOR DISCHARGE ONCE WOUND VAC AND ABX APPROVED. ANTICIPATE DC LATER TODAY/WEDNESDAY Inhouse Planning Pain Management: Toradol, Ultram, Morphine, PO Tylenol, Oxy IR DVT Prophylaxis: TEDs, SCDs, ASA Discharge Planning Discharge Planning: uncertain
--- NOTE | 2016-06-29 14:13 | Discharge Instructions ---
Discharge Instructions Date of Service Jun 29, 2016. Admission Reason for Admission: Right Hip Infection Other Post-Operative Infection Discharge Discharge Diagnosis / Problem: SP INCISION AND DRAINAGE RIGHT TOTAL HIP Discharge Goals Goal(s): Decrease discomfort, Improve function, Increase independence Activity Recommendations Activity Limitations: per Instructions/Follow-up section Lifting Limitations: no more than 10 pounds . Instructions / Follow-Up Instructions / Follow-Up ACTIVITY RECOMMENDATIONS: SELF CARE INSTRUCTIONS AFTER TOTAL HIP REPLACEMENT Until the incision and soft tissues around your hip have healed, there is a possibility that the hip prosthesis could dislocate. A. Observe the following precautions to prevent dislocation: 1. Don't bend your hip greater than 90 degrees. 2. Avoid crossing your legs or ankles while standing or lying. 3. Sit with your feet placed 6 inches apart. 4. When sitting, keep your knees below your hips. Sit on a firm surface, avoid deep, soft chairs and couches. Use an elevated toilet seat in the bathroom. 5. Don't bend over at the waist. Use a long handled shoehorn and a sock aid to help you put on your shoes and socks. A dinkey mechanic can help you picker operator objects that are too high or too low to reach. 6. Keep car riding to a minimum for at least one month after surgery. B. Your balance may be shaky for a while. Use crutches or a walker until directed by your doctor. C. Use hand rails when walking on stairs. D. Wear low heeled shoes with non-slip soles. E. Be sure that your floors are free of things that could trip you - throw rugs , electrical cords, small objects. Avoid wet and waxed floors, especially with crutches and canes. F. Try to walk several times a day with rest periods between. G. Continue with all the exercises taught to you in the hospital. Again, make walking a part of your daily routine. SPECIAL CARE INSTRUCTIONS: VERY IMPORTANT TO READ AND REVIEW A. You may still be at risk for phlebitis and blood clots. 1. Wear surgical stockings (ERNST hose) for 2 weeks after surgery to improve circulation and reduce swelling. 3. High risk patients may be prescribed a stronger blood thinner if necessary. COUMADIN. WILL NEED WEEKLY BLOOD DRAWS. 4. If you are on Coumadin normally, your family doctor/stamp pad maker should monitor your blood work. Expect a phone call the day of or the day after bloodwork is drawn to adjust your dosage. B. You must take antibiotics before having dental work, bladder, bowel and other surgery. Your doctor will provide you with a permanent card to carry describing precautions. C. Call [facility] if you have a fever, redness or swelling around the incision, cloudy drainage from incision, or sudden increase in pain in your hip, not relieved by your regular pain medication. D. Please call the office at if you have any concerns or questions about your operation or recovery. * YOU MAY SHOWER, NO TUB BATHS UNTIL CLEARED BY YOUR DOCTOR. * WEAR ERNST HOSE 20 HOURS PER DAY FOR 2 WEEKS. * YOU SHOULD USE A WALKER OR CRUTCHES FOR 4-6 WEEKS. THIS WILL HELP PREVENT STRAIN ON YOUR HIP MUSCLE AND ALLOW IT TO HEAL PROPERLY. YOU MAY WEAN TO A CANE TOLERATED. WOUND CARE PER DR. AARON. WILL LIKELY NEED TO FOLLOW UP EVERY 3 DAYS FOR WOUND VAC IV ANTIBIOTICS DAILY X [address] MARIA TO MONITOR. FOLLOW UP VISIT: If appointment is not already scheduled: Please call [facility] to make a follow-up appointment for 2 weeks after your surgery at . Current Hospital Diet Patient's current hospital diet: Regular Diet Discharge Diet Recommended Diet: Low Fat Diet Procedures Procedures Performed: Marie Catheter Insertion Into Right Subclavian Pending Studies Studies pending at discharge: yes List of pending studies: CULTURES Medical Emergencies . Who to Call and When: Medical Emergencies: If at any time you feel your situation is an emergency, please call 911 immediately. . Non-Emergent Contact Non-Emergency issues call your: Surgeon . "Provider Documentation" section prepared by Amparo Nolasco. VTE Core Measure Inpt VTE Proph given/why not?: Jose (Coumadin), Yg Chiang, SCD's
[2016-06-29] MEDS ORDERED: TYLOTC500 PO ×2 (14:17)
[2016-06-29] MEDS ORDERED: SNK PO (14:17)
[2016-06-29] MEDS ORDERED: WARF5TAB90 PO ×2 (14:17)
[2016-06-29] MEDS ORDERED: OXYC1TAB3 PO ×2 (14:17)
[2016-06-29] MEDS ORDERED: CLB/200 PO ×2 (14:17)
[2016-06-29] MEDS ORDERED: DAPT500I IV ×2 (14:20)
[2016-06-29] MEDS ORDERED: WARFARIN PO SCH ×2 (16:00)
--- NOTE | 2016-06-29 16:34 | Pharmacy Progress Note ---
Pharmacy Antibiotic Prog Note Date of Service: Jun 29, 2016. Subjective: The patient is currently receiving vancomycin 1500 mg IV every 12 hours, and Zosyn 4.5 Gm IV (infused over 4 hr) q8h. The patient is currently on day # 4 of vancomycin and Zosyn IV therapy. Objective: Height (Feet): 5 Height (Inches): 10 Weight (Kilograms): 154.55 Levels: Item Value Date Time Vancomycin Level Trough 14.3 mcg/ml 06/29/16 1100 Previous dose was hung 06/28 @2318. Lab Results (24hrs): Laboratory Tests Test 06/29/16 06:20 Creatinine 0.78 mg/dl Micro Results: 06/26 drainage hip NGTD Recent Pertinent Medications: Item Value Date Time Vancomycin HCl 530 ml @ 200 mls/hr 06/27/16 2300 1500 mg/Sodium Q12H/IV 06/29/16 1133 Chloride Piperacillin Sod/ 120 ml @ 30 mls/hr 06/26/16 2000 Tazobactam Sod Q8H/IV 06/29/16 1141 4.5 gm/Dextrose Assessment & Plan: This drug level is:Therapeutic. Per ID consult, he will need 6 weeks of antibiotics, either vancomycin or daptomycin depending on insurance coverage. For now,continue vancomycin 1500 mg IV every 12 hours. Goal trough level estimate: between 12-18 mcg/mL. If vancomycin is to be continued, consider checking serum creatinine 2-3 times a week, and vancomycin trough weekly if stable (to monitor for accumulation.) Continue same Zosyn dose for unchanged renal function- consider deescalating to vancomycin/daptomycin alone. Pharmacy will continue to follow and will adjust dose/frequency as necessary. Thank you
[2016-06-29] MEDS ORDERED: DAPTOMYCIN IV SCH (18:00)
[2016-06-29] MEDS ORDERED: SODIUM CHLORIDE 0.9% IV SCH (18:00)
[2016-06-29] MEDS: NORTRIPTYLINE HCL 10 MG CAP PO SCH (20:22)
[2016-06-29] MEDS: TAMSULOSIN HCL 0.4 MG CAP PO SCH (20:22)
[2016-06-29] MEDS: SENNA 8.6 MG TAB PO SCH (20:54)
[2016-06-30] MEDS: PIPERACILL/TAZOBAC IV 4.5 GM in DEXTROSE 5% 100ML IV SCH (04:28)
[2016-06-30] MEDS: ACETAMINOPHEN 500 MG TAB PO SCH (05:44)
[2016-06-30 06:01] VITALS: BP 134/75; PULSE 79; TEMP 36.7; O2SAT 99
[2016-06-30 06:31] LABS: INR 1.3 (0.9-1.1); PROTHROMBIN TIME (PATIENT) 14.1 SECONDS (9.0-12.0)
[2016-06-30] MEDS: FINASTERIDE 5 MG TAB PO SCH (08:44)
[2016-06-30] MEDS: MULTIVITAMIN TAB PO SCH (08:45)
[2016-06-30] MEDS: PANTOprazole SOD 40 MG TAB PO SCH (08:46)
[2016-06-30] MEDS: ALLOPURINOL 300 MG TAB PO SCH (08:46)
[2016-06-30] MEDS: LOSARTAN/HCTZ 50-12.5 EA TAB PO SCH (08:46)
[2016-06-30] MEDS: OXYCODONE HCL IR 5 MG TAB (IMMEDIATE RELEASE) PO PRN (08:53)
[2016-06-30] MEDS ORDERED: NURSING VERBAL MED ORDER ONE (09:45)
--- NOTE | 2016-06-30 09:46 | Orthopedic Progress Note ---
Orthopedic Progress Note Date of Service Jun 30, 2016. Subjective Reports: feeling well, Denies: SOB, calf pain, chest pain, light headedness, nausea / vomiting Objective calves soft nontender, N/V intact, dressing C/D/I (wound vac), A&O x3, toes mobile Date Time Temp Pulse Resp B/P Pulse Ox O2 Delivery O2 Flow Rate FiO2 06/30/16 08:45 Room Air 06/30/16 06:01 36.7 79 16 134/75 99 CPAP 06/29/16 23:40 CPAP 06/29/16 23:05 36.9 81 18 147/84 99 CPAP 06/29/16 16:00 100 Room Air 06/29/16 15:13 36.4 82 18 139/89 100 Room Air 06/29/16 11:54 36.5 76 126/76 100 Room Air 06/29/16 10:13 100 Room Air Laboratory Results 24 Hours: Test 06/30/16 05:40 Prothromb Time International Ratio 1.3 Prothrombin Time 14.1 SECONDS Assessment & Plan Assessment: sp I&D right SURJIT Acute Blood Loss Anemia Morbid obesity history of DVT Plan: PT/OT Continuing wound vac IV antibx as per ID Team - SWITCH TO DAPTO. WILL GET A DOSE TODAY BEFORE DC. [facility] FOR [facility] INFUSIONS. Cx pending at this time- NGTD, PATIENT WAS ON SEVERAL WEEKS OF PO ABX PRIOR TO CULTURES. Picc line unobtainable. Dr Montalvo to place Marie Catheter. Anemia - asymptomatic - will follow for now - may need transfusion. ORTHOPEDICALLY STABLE FOR DISCHARGE ONCE WOUND VAC APPROVED. Inhouse Planning Pain Management: Toradol, Ultram, Morphine, PO Tylenol, Oxy IR DVT Prophylaxis: TEDs, SCDs, ASA Discharge Planning Discharge Planning: uncertain
[2016-06-30] MEDS ORDERED: DAPTOMYCIN IV SCH (10:00)
[2016-06-30] MEDS ORDERED: SODIUM CHLORIDE 0.9% IV SCH (10:00)
[2016-06-30 11:46] VITALS: BP 134/75; PULSE 79; TEMP 36.7; O2SAT 99
[2016-06-30] MEDS ORDERED: WARFARIN SOD 6 MG TAB PO ONE (12:00)
--- NOTE | 2016-07-06 12:08 | DISCHARGE SUMMARY ---
DISCHARGE DIAGNOSIS: Septic right total hip arthroplasty. SECONDARY DIAGNOSES: Morbid obesity and acute blood loss anemia. CONSULTATIONS: Dr. Purcell, Dr. Montalvo and Dr. Morrison. BRIEF HISTORY: Please see previously dictated history and physical. HOSPITAL SUMMARY: The patient was admitted on the above day for the above procedure. Procedure went without complication. Postop day 1 the patient was feeling well without complaints. He was unable to get a PICC line and stated that he needed a Marie catheter previously. Vital signs were stable. He was afebrile. Wound VAC was intact to the right hip. He had an irrigation wound VAC placed initially. Hemoglobin was 8.8. The patient began physical therapy per protocol. He will continue irrigation wound VAC over the weekend. He was on Zosyn and vancomycin. Cultures were pending. Postop day 2 the patient doing well. Vital signs were stable. He was afebrile. IV access was lost. Patient was n.p.o. for Marie catheter later that day. Vital signs were stable. He was afebrile. Dressing was clean, dry and intact. He was neurovascularly intact. Calves were soft and nontender. Hemoglobin was 7.8. Anemia was asymptomatic. The patient was being monitored. Cultures remain pending. Postop day 3 the patient was improving. He denied chest pain or shortness of breath. Vital signs were stable. He was afebrile. Irrigation wound VAC was discontinued; regular wound VAC was placed. He was neurovascularly intact. Hip was located. Hemoglobin was 8.4. INR was 1.1. The patient's cultures remained no growth to date; however, he was on several weeks of antibiotics prior to cultures. Case management was working on discharge planning for antibiotic which would be more cost effective. We are waiting wound VAC authorization. Postop day 4 patient continued to improve. He denied chest pain or shortness of breath. Vital signs were stable. He was afebrile. Wound VAC was clean, dry and intact. He was neurovascularly intact. Calves were soft and nontender. INR was 1.3. The [facility] was [facility] for daily infusions of daptomycin x6 weeks. He was discharged to home later that day in stable condition. For further review please see the chart. Lab, x-ray data and discharge instructions as per chart.
[2016-08-26] MEDS ORDERED: CIPR-255 PO (15:47)
[2016-08-26] MEDS ORDERED: DAPT500I IV (15:49)
[2016-09-02] MEDS ORDERED: CIPR-255 PO (10:05)
[2016-09-07] MEDS ORDERED: DOXY-300 PO (13:53)
[2016-10-06] MEDS ORDERED: ERTA1INJ IV (11:31)
[2016-10-06] MEDS ORDERED: DAPT500I IV. (11:31)
[2016-10-14] MEDS ORDERED: AMOX875T PO (10:09)
[2016-10-16] MEDS ORDERED: TEST5GEL TOP (08:10)
[2016-10-28] MEDS ORDERED: HYZ/50125 PO (09:42)
[2016-10-28] MEDS ORDERED: DOXY-300 PO (10:04)
[2016-11-18] MEDS ORDERED: DAPT500I IV (09:37)
[2016-11-18] MEDS ORDERED: ERTA1INJ IV (09:37)
[2017-02-10] MEDS ORDERED: LEVO1TAB34 PO (10:06)
[2017-02-22] MEDS ORDERED: LEVO1TAB34 PO (13:42)
[2017-03-02] MEDS ORDERED: DAPT500I IV (11:57)
[2017-03-02] MEDS ORDERED: ERTA1INJ IV (11:57)
[2017-03-02] MEDS ORDERED: LVQ750 PO (15:11)
[2017-03-02] MEDS ORDERED: NZRCR EXT (15:11)
== END 2016-06-30 14:00 | disposition home health service (06) | DRG 467 ==
LOC: ENRESERVDT → ENRESERVTM → C.ACU 05:04 → C.3E 09:48
PROVIDERS: ADMIT Orthopaedic Surgery; ATTEND Orthopaedic Surgery
PROC: 3E0U029 Introduction of Other Anti-infective into Joints, Open Approach (ICD-10-PCS; principal; 2016-06-26 07:15)
PROC: 0SUA09Z Supplement Right Hip Joint, Acetabular Surface with Liner, Open Approach (ICD-10-PCS; principal; 2016-06-26 07:15)
PROC: 0SP90JZ Removal of Synthetic Substitute from Right Hip Joint, Open Approach (ICD-10-PCS; principal; 2016-06-26 07:15)
PROC: 0SRR0JZ Replacement of Right Hip Joint, Femoral Surface with Synthetic Substitute, Open Approach (ICD-10-PCS; principal; 2016-06-26 07:15)
PROC: 0MDL0ZZ Extraction of Right Hip Bursa and Ligament, Open Approach (ICD-10-PCS; principal; 2016-06-26 07:15)
PROC: 0SP909Z Removal of Liner from Right Hip Joint, Open Approach (ICD-10-PCS; principal; 2016-06-26 07:15)
PROC: 02HV33Z Insertion of Infusion Device into Superior Vena Cava, Percutaneous Approach (ICD-10-PCS; 2016-06-28)
DX: T84.51XA Infection and inflammatory reaction due to internal right hip prosthesis, initial encounter (principal); D62 Acute posthemorrhagic anemia; M00.851 Arthritis due to other bacteria, right hip; Z68.43 Body mass index [BMI] 50.0-59.9, adult; I10 Essential (primary) hypertension; E66.01 Morbid (severe) obesity due to excess calories; Z98.890 Other specified postprocedural states; Z96.653 Presence of artificial knee joint, bilateral; Z96.641 Presence of right artificial hip joint; G47.33 Obstructive sleep apnea (adult) (pediatric); Z86.718 Personal history of other venous thrombosis and embolism; Y79.2 Prosthetic and other implants, materials and accessory orthopedic devices associated with adverse incidents; Y92.009 Unspecified place in unspecified non-institutional (private) residence as the place of occurrence of the external cause

== ENCOUNTER → 2016-07-06 | Outpatient (CLI) | payer OTHER, MEDICARE ==
[~2016-07-06] MED LIST changes: +ACET-1256 PO; +AMOX875T PO; +CHOL20007 PO; +CIPR-255 PO; +CYAN1CAP3 PO; +DAPT500I IV; +DAPT500I IV.; +DOXY-300 PO; +ERTA1INJ IV; +HYZ/50125 PO; +LEVO1TAB33 PO; +LEVO1TAB34 PO; +LVQ750 PO; +NZRCR EXT; -PROP60CA5 PO; +TEST5GEL TOP; +VTMB12 PO; +WARF5TAB90 PO
[2016-07-06 12:26] LABS: EOS % 4.6 %; HEMATOCRIT 27.3 % (42-52); IG% 1.1 %; LYMPH % 29.8 %; MEAN CELL VOLUME 86.9 fL (80-100); MEAN PLATELET VOLUME 9.2 fL (7.4-10.4); MONO % 8.8 %; NEUT % 54.7 %; PLATELET COUNT 406 K/uL (130-400); RED BLOOD COUNT 3.14 M/uL (4.7-6.1); WHITE BLOOD COUNT 9.73 K/uL (4.8-10.8)
[2016-07-06 12:31] LABS: COMPLETE YES; MEAN CORPUSCULAR HGB CONC 32.2 g/dl (32-36)
[2016-07-06 12:37] LABS: INR 1.9 (0.9-1.1); PARTIAL THROMBOPLASTIN RATIO 1.3; PROTHROMBIN TIME (PATIENT) 20.5 SECONDS (9.0-12.0)
[2016-07-06 13:21] LABS: ALB/GLOB RATIO 0.7 (0.9-2); ALKALINE PHOSPHATASE 70 U/L (45-117); ALT/SGPT 11 U/L (12-78); AST/SGOT 13 U/L (15-37); BLOOD UREA NITROGEN 19 mg/dl (7-18); BUN/CREATININE RATIO 22.7 (10-20); CALCIUM 8.3 mg/dl (8.5-10.1); CARBON DIOXIDE 28 mmol/L (21-32); CHLORIDE 108 mmol/L (98-107); CREATININE 0.82 mg/dl (0.60-1.40); GLUCOSE 83 mg/dl (70-99); POTASSIUM 4.5 mmol/L (3.5-5.1); SODIUM 144 mmol/L (136-145)
== END | disposition home or self-care (01) ==
LOC: C.LAB1850 11:34
PROVIDERS: ATTEND Emergency Medicine
DX: T81.9XXA Unspecified complication of procedure, initial encounter (principal); Y84.9 Medical procedure, unspecified as the cause of abnormal reaction of the patient, or of later complication, without mention of misadventure at the time of the procedure

== ENCOUNTER 2016-07-08 10:32 | Inpatient (IN) | payer OTHER, MEDICARE ==
[~2016-07-08] VITALS: Ht 175.3 cm; Wt 148.1 kg
[~2016-07-08 10:32] MED LIST changes: -ACET-1256 PO; -AMOX875T PO; -CHOL20007 PO; -CIPR-255 PO; -CYAN1CAP3 PO; -DAPT500I IV.; -DOXY-300 PO; -ERTA1INJ IV; -HYZ/50125 PO; -LEVO1TAB33 PO; -LEVO1TAB34 PO; -LVQ750 PO; -NZRCR EXT; +PROP60CA5 PO; +SNK PO; -TEST5GEL TOP; -VTMB12 PO
--- NOTE | 2016-07-08 11:38 | EMERGENCY ROOM VISIT NOTE ---
History Report prepared by Boyd: Mily uBckley Under the Supervision of: Dr. Luis Armando Hutchins D.O. First contact with patient: 11:02 Chief Complaint: WOUND INFECTION Stated Complaint: AGVACEL A6+ ABD PAD+TAPE, REFERRED TO BE ADMITTED Nursing Triage Summary: pt to the ED after being sent over from the wound clinic for concern for worsening hip infection he is getting daily IV ABX for this pt has a very deep right hip wound that is draining brownish clear discharge and it is deeply packed. 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 He was sent here from the wound care clinic. He had a hip revision in April which got infected. He had a wound vac on since last week. He recently had it removed. The infection is not getting better despite IV antibiotics. The infection began draining yellow fluid. Yesterday he was weak to the point of being unable to walk. He would like to be evaluated for further management and removal of the infection. 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 Review of Systems See HPI for pertinent positives & negatives. A total of 10 systems reviewed and were otherwise negative. Past Medical & Surgical Medical Problems: (1) Post op infection Surgical Problems: (1) Post-operative state (2) Post-operative state Family History No pertinent family history stated. Social History Smoking Status: Never Smoker Drug Use: none Marital Status: Housing Status: lives with family Occupation Status: retired Current/Historical Medications Scheduled Acetaminophen (Tylenol), 1,000 MG PO PRN Allopurinol (Zyloprim), 300 MG PO QAM Cholecalciferol (Vitamin D3), 1 CAP PO QAM Daptomycin (Daptomycin), 927 MG IV Q24H Finasteride (Proscar), 5 MG PO QAM Nortriptyline (Pamelor), 20 MG PO HS Oxycodone Ir (Roxicodone Ir), 5-10 MG PO Q4H Tamsulosin HCl (Tamsulosin HCl), 1 CAP PO HS Warfarin Sodium (Coumadin), 1 TAB PO DAILY Scheduled PRN Celecoxib (CeleBREX), 200 MG PO BID PRN for RN Allergies Coded Allergies: No Known Allergies (Unverified , 07/08/16) Physical Exam Vital Signs Date Time Temp Pulse Resp B/P Pulse Ox O2 Delivery O2 Flow Rate FiO2 07/08/16 10:35 36.7 97 18 142/78 95 Room Air Physical Exam CONSTITUTIONAL/VITAL SIGNS: Reviewed / noted above. GENERAL: Non-toxic in appearance. INTEGUMENTARY: Warm, dry, and [place]. Large open wound to the right hip with packing in place. No surrounding erythema. HEAD: Normocephalic. EYES: without scleral icterus or trauma. ENT/OROPHARYNX: clear and moist. LYMPHADENOPATHY/NECK: Is supple without lymphadenopathy or meningismus. RESPIRATORY: Lungs clear and equal. CARDIOVASCULAR: Regular rate and rhythm. GI/ABDOMEN: Soft and nontender. No organomegaly or pulsatile mass. No rebound or guarding. Normal bowel sounds. EXTREMITIES: Warm and well perfused. BACK: No CVA tenderness. NEUROLOGICAL: Intact without focal deficits. PSYCHIATRIC: normal affect. MUSCULOSKELETAL: Normally developed with good muscle tone. Medical Decision & Procedures ED Course 1103: Previous medical records were reviewed. The patient was evaluated in room C7. A complete history and physical examination was performed. 1123: I discussed the patient's case with Dr. Oconnor, [facility] Orthopedic surgery. He will send a PA-C to evaluate the patient for further management. Medical Decision Differential diagnosis: Etiologies such as cellulitis, abscess, MRSA infection, DVT, necrotizing fasciitis, dermatitis, drug eruption, as well as others were entertained. This is a 66-year-old male who presents to the ED with a chief complaint of a wound infection in his right hip. The patient was seen by infectious disease and wound care services earlier today in the office. The patient was sent here for admission. The patient had a total hip arthroplasty performed in April. He has had some infections and problems since that time related to this. I spoke with Dr. Oconnor about the patient. The patient will be admitted by his service for further inpatient evaluation. Based on information provided to me, it appears as though the wound has not been healing well despite antibiotics IV daily and wound VAC in addition to wound care services. Consults Time Called: 1110 Consulting Physician: Dr. Oconnor, [facility] Orthopedic surgery Returned Call: 1123 I discussed the patient's case with him. He will send a PA-C to evaluate the patient for further management Impression Primary Impression: Postoperative wound infection of right hip Scribe Attestation The scribe's documentation has been prepared under my direction and personally reviewed by me in its entirety. I confirm that the note above accurately reflects all work, treatment, procedures, and medical decision making performed by me. Departure Information Dispostion Being Evaluated By Surgeon Costa Oshea, D.O.Int.Med. (PCP) Patient Instructions My [facility]
[2016-07-08] MEDS ORDERED: DAPTOmycin 500 MG VIAL IV SCH (12:45)
[2016-07-08] MEDS ORDERED: ONDANSETRON INJ 2 MG/ML 2 ML VIAL IV PRN (12:45)
[2016-07-08] MEDS ORDERED: DiphenhydrAMINE HCL 50 MG/ML VIAL IV PRN (12:45)
[2016-07-08] MEDS ORDERED: CeleBREX 200 MG CAP PO PRN (12:45)
[2016-07-08 13:15] VITALS: O2SAT 93; Ht 175.3 cm; Wt 148.1 kg
[2016-07-08 13:36] LABS: HEMATOCRIT 27.1 % (42-52); MEAN CORPUSCULAR HEMOGLOBIN 28.2 pg (25-34); MEAN CORPUSCULAR HGB CONC 33.2 g/dl (32-36); MEAN PLATELET VOLUME 8.8 fL (7.4-10.4); PLATELET COUNT 374 K/uL (130-400); RED BLOOD COUNT 3.19 M/uL (4.7-6.1); WHITE BLOOD COUNT 12.12 K/uL (4.8-10.8)
[2016-07-08 13:54] LABS: BUN/CREATININE RATIO 14.2 (10-20); CALCIUM 8.1 mg/dl (8.5-10.1); CREATININE 0.88 mg/dl (0.60-1.40)
--- NOTE | 2016-07-08 14:22 | HISTORY & PHYSICAL EXAMINATION ---
DATE OF ADMISSION: 07/08/2016 REASON FOR ADMISSION: Increased drainage from right hip wound. HISTORY OF PRESENT ILLNESS: The patient is a 66-year-old white male known to our practice, who underwent a right total hip arthroplasty in April 2016. He subsequently developed a right hip and right SURJIT infection and underwent irrigation and debridement by Dr. Anton Oconnor on his visit during 06/26/2016. At that point in time along with infectious disease and wound care with Dr. Morrison, wound VAC management was started and the patient did well and was discharged to home on 06/30/2016 on IV daptomycin and continued wound VAC. He has been getting his daptomycin through [facility] here [facility] the hospital and has been seeing wound care for his wound. The patient was seen today at the wound care center by the team there as well as Dr. Love from infectious disease. He states that over the last 2-3 days, he felt that he was continuing to get a bit weaker and not feeling well. He denies overt fevers and no chills or rigors, but just general weakness. He was seen by the staff again, as noted today and his wound VAC had been removed. He was having what the patient told was moderate serous drainage from the wound VAC that was orange to reddish but not grossly purulent. Dr. Love felt that with his general increase of weakness, that he should be likely admitted to the hospital for medical workup and also reapplication of wound VAC and discussed this with Dr. Oconnor. He was sent to the Emergency Room and at this time, the patient is lying in bed and appears comfortable. He states that he does not feel as weak as he has been over the last several days, but is still obviously having some weakness. He has not complained of any overt problems of the right hip other than with the wound VAC drainage as noted. He denies any gross purulence or overt drainage that was odorous. He is now admitted for further care. PAST MEDICAL HISTORY: History of DVT status post TKA 6 years ago, hypertension, sleep apnea, obesity. PAST SURGICAL HISTORY: Total knee replacements x4, inguinal herniorrhaphy, cholecystectomy, appendectomy, right total hip arthroplasty in April 2016 as noted above and above noted irrigation and debridement of right SURJIT in late May or early June of this year. FAMILY HISTORY: Essentially benign. SOCIAL HISTORY: The patient does not use alcohol or tobacco and lives with his . He is retired. MEDICATIONS: Tylenol 1000 mg p.o. p.r.n., allopurinol 300 mg p.o. q.a.m., Celebrex 200 mg p.o. b.i.d., vitamin D3 one cap p.o. q.a.m., daptomycin 927 mg IV q. 24 hours, finasteride 5 mg p.o. q.a.m., Pamelor 20 mg p.o. at bedtime, OxyIR 5-10 mg p.o. q. 4 hours p.r.n. pain, tamsulosin 0.4 mg 1 cap p.o. at bedtime and warfarin 5 mg p.o. daily. ALLERGIES: NKDA. REVIEW OF SYSTEMS: No recent fevers, chills, night sweats or unexplained weight loss or weight gain. No flu or cold like symptoms but just general overt weakness as described in the HPI. No chills or rigors. Denies shortness of breath at rest or on exertion. No hemoptysis. No increased cough or sputum production. No chest pain, chest pressure, irregular heartbeat. No abdominal pain. No unusual nausea, vomiting or diarrhea. No hematemesis, melena, hematochezia. No hematuria, pyuria, or dysuria. No history of CVA, TIA or seizure disorder. PHYSICAL EXAMINATION: VITAL SIGNS: On admission to the ER, temperature 36.7, pulse 97, respirations 18, BP 142/78, pulse ox 95 on room air. GENERAL: The patient is an obese white male who is alert and oriented x3, in no acute distress, pleasant and cooperative. SKIN: Warm and dry. Turgor is good. HEENT: Head is normocephalic and atraumatic. There is no scleral icterus or injection. Nasal airway is patent. He is noted wearing corrective lenses at this time. Oral mucosa is pink and moist. NECK: Supple without adenopathy or bruit. HEART: Regular rate and rhythm. LUNGS: Clear to auscultation bilaterally. ABDOMEN: Soft, obese and nontender. Bowel sounds are present x4. GENITALIA AND RECTAL: Not performed at this time. EXTREMITIES: On examination of the patient's right hip, he has a large dressing over the right hip and upon removing it, has some noted Aquacel gauze tucked down inside the large hip wound. The surrounding edges of the hip wound are pink and viable, as is the tissue that goes down deeper along the subcutaneous line. Under the Aquacel dressing, he has some discoloration of the tissue that is not overtly purulent but looks like tissue changes due to the Aquacel type dressings. He does have some serous drainage that is orangish in nature and is not thick, is not purulent looking. There is no surrounding erythema of the hip wound at this time and he is ambulatory and is able to go to the bathroom after our exam and use the restroom on his own. He has good range of motion of his right hip, which is limited due to recent surgery and precautions. Left lower extremity is essentially benign and has good range of motion, as do the upper extremities bilaterally. Distal pulses are equal. He has good supervisor grower strength of both upper extremities bilaterally, dorsiflexion and plantarflexion strengths are equal bilaterally of the lower extremities. NEUROLOGICAL: No gross motor or sensory deficits noted at this time. The patient is oriented x3. PLAN: After discussing the case with Dr. Oconnor, who has also discussed with Dr. Love, the patient will be admitted. A consult will be placed for [facility] for general medical workup and also consult for wound care for replacement of wound VAC. We will also consult Dr. Love for any needs for decreasing or increasing his antibiotic dosage and we will continue his IV antibiotics at this time as written.
[2016-07-08 14:46] LABS: INR 1.7 (0.9-1.1); PROTHROMBIN TIME (PATIENT) 18.4 SECONDS (9.0-12.0)
[2016-07-08 15:33] VITALS: O2SAT 98
--- NOTE | 2016-07-08 15:52 | Medical Consult ---
Consultation Date of Consultation: Jul 08, 2016. Attending Physician: Ky Garrido PA-C Reason for Consultation: Medical Management History of Present Illness Mr. Lopez is a 66 y/o male with PMHx of HTN, DVT after TKA (6 years ago), SABRINA on CPAP, Obesity, BPH with LUTS, Gout, Venous Insufficiency, and S/P R SURJIT (Apr 2016). Patient then develop an infection in the R hip and underwent irrigation and debridement on 06/26. He currently follows with ID and Wound with [facility] from the [facility] and just recently had wound vac removed. Over the past 2-3 days he has progressively felt worse and weaker. He has been following up with wound and ID and had the wound vac removed which revealed moderate serous drainage that was an orange/red color but no overt purulent drainage. Patient is currently off all hypertensive medications due to lightheadedness/dizziness and orthostatic hypotension. He was previously on atenolol and losartan/HCTZ. Past Medical/Surgical History Medical Problems: (1) Postoperative wound infection of right hip Status: Acute Family History Heart Disease Hypertension Parkinson's Disease Social History Smoking Status: Never Smoker Smokeless Tobacco Use: No Alcohol Use: none Drug Use: none Marital Status: Housing Status: lives with family Occupation Status: retired Allergies Coded Allergies: No Known Allergies (Unverified , 07/08/16) Current Inpatient Medications Current Inpatient Medications Medications (Trade) Dose Ordered Sig/Chris Route Start Time Stop Time Status Last Admin Dose Admin Diphenhydramine HCl (Benadryl Inj) 25 mg Q8 PRN IV 07/08/16 12:45 08/07/16 12:44 Ondansetron HCl (Zofran Inj) 4 mg Q6H PRN IV 07/08/16 12:45 08/07/16 12:44 Docusate Sodium (coLACE CAP) 100 mg BID PO 07/08/16 21:00 08/07/16 20:59 Pantoprazole Sodium 40 mg 40 mg QAM PO 07/09/16 09:00 08/08/16 08:59 Dextrose/Sodium Chloride (D5W And 1/2nss) 1,000 ml @ 75 mls/hr [id number] IV 07/08/16 12:31 08/07/16 12:30 Allopurinol (Zyloprim Tab) 300 mg QAM PO 07/09/16 09:00 08/08/16 08:59 Celecoxib (CeleBREX CAP) 200 mg BID PRN PO 07/08/16 12:45 08/07/16 12:44 Daptomycin (Cubicin IV) 927 mg Q24H IV 07/08/16 12:45 08/19/16 12:44 UNV Finasteride (Proscar Tab) 5 mg QAM PO 07/09/16 09:00 08/08/16 08:59 Nortriptyline HCl (Pamelor Cap) 20 mg HS PO 07/08/16 21:00 08/07/16 20:59 Oxycodone HCl (Roxicodone Immediate Rel Tab) `1-2 tabs for pain 1 tab ... Q4H PRN PO 07/08/16 12:45 07/22/16 12:44 Tamsulosin HCl (Flomax Cap) 0.4 mg HS PO 07/08/16 21:00 08/07/16 20:59 Cholecalciferol (Vitamin D Tab) 2,000 inter.unit QAM PO 07/09/16 09:00 08/08/16 08:59 Warfarin Sodium (Coumadin Tab) 5 mg DAILY PO 07/09/16 09:00 08/08/16 08:59 UNV Review of Systems REVIEW OF SYSTEMS: General/Constitutional: +CHILLS, GENERALIZED FATIGUE/WEAKNESS, INTENTIONAL WEIGHT LOSS; Denies fever ENT: Denies visual changes, nasal drainage, hearing loss, sore throat, trouble swallowing Cardiovascular: Denies chest pain, palpitations, edema Respiratory: Denies cough, sputum, SOB, wheezing, orthopnea GI: Denies nausea, vomiting, abdominal pain, constipation, diarrhea, melena/ hematochezia : Denies dysuria, frequency, hematuria Musculoskeletal: +INCREASED DRAINAGE OF R HIP WOUND; Denies joint/muscle aches, swelling Neurologic: Denies dizziness/lightheadedness, numbness/tingling, weakness Psychiatric: Deferred Endocrine: Deferred Hematologic/Lymphatic: Denies bleeding/clotting abnormalities Skin: Denies rash, itch, new skin changes, easy bruising Allergy/Immunologic: Deferred Physical Exam Date Time Temp Pulse Resp B/P Pulse Ox O2 Delivery O2 Flow Rate FiO2 07/08/16 15:33 100 14 118/52 98 Room Air 07/08/16 13:15 93 Room Air 07/08/16 12:22 90 14 142/73 93 Room Air 07/08/16 10:35 36.7 97 18 142/78 95 Room Air PHYSICAL EXAM:: General Appearance: WDWN in NAD who is A&O x 3 HEENT: Head is normocephalic/atraumatic; EOMI; PERRLA; Hearing grossly intact; Mucous membranes moist; Pharynx negative for exudate/lesions Neck: Supple; Trachea midline; Neg JVD; Neg lymphadenopathy Heart: RRR with no M/G/R Lungs: CTA in all lung bradley bilaterally; Respirations unlabored; Neg accessory muscle use Abdomen: Soft, non-tender, non-distended; Positive BS x 4 quadrants; Neg organomegaly Extremities: Large open surgical wound of R hip approx 12 inches long; No eschar appreciated; orange serous fluid in wound bed; some yellow/white tissue present; Capillary refill < 2 seconds; Neg cyanosis or edema Neurological: Speech clear; Gross motor/sensory function intact; Neg focal neurologic deficits Psychiatric: Appropriate mood/affect Skin: Normal Color; Warm/Dry; Neg rashes, ecchymosis, lacerations/ulcerations Laboratory Results Last 24 Hours Test 07/08/16 13:25 White Blood Count 12.12 K/uL Red Blood Count 3.19 M/uL Hemoglobin 9.0 g/dL Hematocrit 27.1 % Mean Corpuscular Volume 85.0 fL Mean Corpuscular Hemoglobin 28.2 pg Mean Corpuscular Hemoglobin Concent 33.2 g/dl RDW Standard Deviation 46.0 fL RDW Coefficient of Variation 14.8 % Platelet Count 374 K/uL Mean Platelet Volume 8.8 fL Prothrombin Time 18.4 SECONDS Prothromb Time International Ratio 1.7 Sodium Level 141 mmol/L Potassium Level 4.0 mmol/L Chloride Level 107 mmol/L Carbon Dioxide Level 29 mmol/L Anion Gap 5.0 mmol/L Blood Urea Nitrogen 12 mg/dl Creatinine 0.88 mg/dl Est Creatinine Clear Calc Drug Dose 117.2 ml/min Estimated GFR () 103.0 Estimated GFR (Non- 88.9 BUN/Creatinine Ratio 14.2 Random Glucose 84 mg/dl Calcium Level 8.1 mg/dl Assessment & Plan Mr. Lopez is a 66 y/o male with PMHx of HTN, DVT after TKA (6 years ago), SABRINA on CPAP, Obesity, BPH with LUTS, Gout, Venous Insufficiency, and S/P R SURJIT (Apr 2016). Patient then develop an infection in the R hip and underwent irrigation and debridement on 06/26. He currently follows with ID and Wound with [facility] from the [facility] and just recently had wound vac removed. Over the past 2-3 days he has progressively felt worse and weaker. S/P R SURJIT with Open Surgical Wound: - Per primary team, wound care, ID - Daptomycin 925 mg IV daily - Roxicodone 5-10 mg Q4H PRN - Will add Dilaudid 1 mg IV Q4H PRN - can be used for wound washing/debridement -- Patient reports generally adequate control of pain but Roxicodone with minimal relief but wound cleanings increase pain Weakness: Likely 2/2 Wound Infection - Will review anemia - iron studies, B12/folate - Obtain urine - R/O infection HTN: Off Medications - Recently on atenolol and losartan/HCTZ - has been discontinued by PCP 2/2 lightheadedness/dizziness/orthostatic hypotension DVT after TKA (6 years ago): - Warfarin 5 mg daily - Trend INR SABRINA on CPAP: - May use own CPAP BPH w/ LUTS: - Proscar 5 mg daily and Flomax 0.4 mg daily Gout: - Allopurinol 300 mg daily Venous Insufficiency: - Pamelor 20 mg daily DVT Prophylaxis: Warfarin Thank you for the consultation. We will continue to follow. Assessment and Plan Attending Addendum: I have physically seen and examined this patient, have directed their medical care, have supervised the PA's activity, and agree with the H&P as noted above, with the following changes: NONE.
[2016-07-08] MEDS: OXYCODONE HCL IR 5 MG TAB (IMMEDIATE RELEASE) PO PRN (16:09)
[2016-07-08] MEDS ORDERED: HYDROmorphone INJ 1 MG/ML SYR IV PRN (16:30)
[2016-07-08 16:55] VITALS: BP 122/71; PULSE 74; TEMP 36.8; O2SAT 97
[2016-07-08] MEDS: WARFARIN SOD 5 MG TAB PO SCH (17:05)
[2016-07-08] MEDS: D5W AND 1/2NSS 1,000 ML IV SCH (17:16)
[2016-07-08 18:11] LABS: URINE APPEARANCE CLEAR (CLEAR); URINE BILIRUBIN NEG (NEG); URINE COLOR YELLOW; URINE EPITHELIAL CELL AUTO 0-5 /lpf (0-5); URINE NITRITE NEG (NEG); URINE SPECIFIC GRAVITY 1.013 (1.000-1.030); UROBILINOGEN NEG (NEG); ZZUR CULT IF INDIC CLEAN CATCH NO
[2016-07-08 18:12] LABS: MANUAL MICROSCOPIC REQUIRED? NO; REVIEW REQ? NO
[2016-07-08] MEDS: NORTRIPTYLINE HCL 10 MG CAP PO SCH (20:35)
[2016-07-08] MEDS: DOCUSATE SODIUM 100 MG CAP PO SCH (20:35)
[2016-07-08] MEDS: TAMSULOSIN HCL 0.4 MG CAP PO SCH (20:35)
[2016-07-08 23:22] VITALS: BP 119/68; PULSE 86; TEMP 37.3; O2SAT 98
[2016-07-09] VITALS (14 sets, daily range): BP systolic 108–155; BP diastolic 46–87; PULSE 59–97; TEMP 36.4–37.2; O2SAT 93–99
[2016-07-09] MEDS: D5W AND 1/2NSS 1,000 ML IV SCH ×2 (02:19→15:13)
[2016-07-09 05:52] LABS: MEAN CELL VOLUME 84.8 fL (80-100); MEAN CORPUSCULAR HEMOGLOBIN 27.9 pg (25-34); MEAN CORPUSCULAR HGB CONC 32.9 g/dl (32-36); MEAN PLATELET VOLUME 8.9 fL (7.4-10.4); PLATELET COUNT 317 K/uL (130-400); RED BLOOD COUNT 2.83 M/uL (4.7-6.1); WHITE BLOOD COUNT 8.36 K/uL (4.8-10.8)
[2016-07-09 06:10] LABS: INR 1.7 (0.9-1.1); PROTHROMBIN TIME (PATIENT) 18.6 SECONDS (9.0-12.0)
[2016-07-09 06:17] LABS: BUN/CREATININE RATIO 17.6 (10-20); CALCIUM 7.4 mg/dl (8.5-10.1); CREATININE 0.73 mg/dl (0.60-1.40); POTASSIUM 3.9 mmol/L (3.5-5.1)
[2016-07-09 06:22] LABS: FERRITIN 116.9 ng/ml (8.0-388.0)
[2016-07-09] MEDS: SODIUM CHLORIDE 0.9% IV SCH (08:06)
[2016-07-09] MEDS: DAPTOMYCIN IV SCH (08:06)
[2016-07-09] MEDS: CHOLECALCIFEROL 1000 INTER.UNIT TAB PO SCH (08:06)
[2016-07-09] MEDS: DOCUSATE SODIUM 100 MG CAP PO SCH ×2 (08:06→20:29)
[2016-07-09] MEDS: PANTOprazole SOD 40 MG TAB PO SCH (08:07)
[2016-07-09] MEDS: FINASTERIDE 5 MG TAB PO SCH (08:07)
[2016-07-09] MEDS: ALLOPURINOL 300 MG TAB PO SCH (08:07)
--- NOTE | 2016-07-09 08:12 | ORTHOPEDICS PROGRESS NOTE ---
DATE: 07/09/2016 CHIEF COMPLAINT: Right hip infection. HISTORY OF PRESENT ILLNESS: This patient is an obese 66-year-old male. He is here now in the hospital because of failure ____. DICTATION ENDS HERE.
--- NOTE | 2016-07-09 08:26 | ORTHOPEDICS PROGRESS NOTE ---
DATE: 07/09/2016. CHIEF COMPLAINT: Right hip infection. HISTORY OF PRESENT ILLNESS: This patient is well known to me. He is almost 2 weeks status post aggressive I\T\D with exchange of the femoral head and polyethylene liner for a wound infection. At that time no closures grew any organism but the patient had been on some oral antibiotic. He underwent aggressive debridement with placement of antibiotic beads and closure of muscle and fascia with repair of the muscle layer and a wound VAC. He has had increased drainage from the hip and also over the last few days felt very weak and in discussion with infectious disease was decided that we would admit him and evaluate things. Today, the patient is in bed. He states that he feels somewhat better. The wound is open and packed. OBJECTIVE: I did explore the wound, removed some of the packing. The wound has some small dusky areas, but overall is pink beefy red but generally healthy looking. The drainage is consistent with the use of antibiotic beads and most likely will drain for some time. The hip is located. Neurological and vascular function are intact. LABORATORY VALUES: Hemoglobin is now 7.9 with hematocrit of 24. This is down from 27 of yesterday. Chemistry shows extreme malnutrition with an albumin of 2.5, a total protein of 62, B12 and folate are pending. Iron is low at 14, calcium is low at 7.4. Electrolytes are normal. IMPRESSION: 1. Morbid obesity with deep wound infection. 2. Anemia, acute on chronic due to malnutrition and recent surgery. 3. Severe malnutrition. DISCUSSION AND PLAN: At this point, I feel that the wound VAC is safe and appropriate. The patient's drainage is due to the presence of vancomycin impregnated beads and the extra irritation and serous fluid that they produce. As these beads dissolve this should decrease and the patient still has a reasonable likelihood of saving his hip. However, his nutritional status is extremely poor. I have discussed with medicine that I believe that this has to be optimized in order to give him the best chance of healing this infection. We will defer to them for treatment. Anemia. Regarding the anemia, the patient most likely should be transfused again. Will defer to medicine and await their opinion. Recommend replacement of the antibiotic beads. MTDD
--- NOTE | 2016-07-09 10:44 | Hospitalist Progress Note ---
Hospitalist Progress Note Date of Service Jul 09, 2016. (Kayla Perez PA-C) Subjective Pt evaluation today including: conversation w/ patient, physical exam, chart review, lab review, review of studies, review of inpatient medication list The patient was seen and examined this morning. Pt reports doing well today. He slept well overnight and his pain is controlled, he is able to sit up at bedside without difficulty. He has no acute complaints this morning. Pt is agreeable to starting boost supplementation. Pt is hopeful that he will be able to return home with home health after hospitalization. He lives with his in a handicap accessible apartment in [place]. Additional Comments: Constitutional: No fever, chills, sweats, fatigue or weakness + morbidly obese Eyes: No diplopia, no changes in vision ENT: No sore throat, tinnitus, or trouble swallowing Respiratory: No shortness of breath, No dyspnea at rest or on exertion, no cough or sputum Cardiovascular: No chest pain, palpitations, or flutter Abdomen: No pain, No constipation, No diarrhea, No nausea, No vomiting Musculoskeletal: + Right hip pain, minimal. No calf pain, No joint pain, + swelling in bilateral lower extremities worse on left compared to the right Genitourinary : No dysuria or urinary frequency, No hematuria Neurologic: No numbness/tingling, is a walker for ambulation assistance, no sensory or motor deficits Psychiatric: No depression or anxiety symptoms Endocrine: No fatigue, No weight changes Integumentary: No itch, No rash (Kayla Perez, NELSON) Objective Vital Signs Date Time Temp Pulse Resp B/P Pulse Ox O2 Delivery O2 Flow Rate FiO2 07/09/16 07:55 36.8 87 18 146/73 99 Room Air 07/09/16 07:45 Room Air 07/09/16 01:05 CPAP 07/08/16 23:22 37.3 86 16 119/68 98 BiPAP 07/08/16 16:55 36.8 74 18 122/71 97 Room Air 07/08/16 15:33 100 14 118/52 98 Room Air 07/08/16 14:00 Room Air BiPAP 07/08/16 13:15 93 Room Air 07/08/16 12:22 90 14 142/73 93 Room Air (Kayla Perez PA-C) Physical Exam Notes: General: awake, alert, no apparent distress, + morbidly obese Head: Normocephalic, atraumatic ENT: PERRL, EOMI, no pharyngeal exudate, mucous membranes moist Chest: Clear to auscultation, on room air, no adventitious breath sounds Cardiac: Regular rate and rhythm, no murmur, no JVD, normal peripheral pulses, good capillary refill Abdominal: NABS x 4 quadrants, + panis, soft, nontender to palpation, no rebound , guarding or tenderness Extremities: + R hip wound, Dressing covering c/d/i, + peripheral edema 2+ pitting, + chronic venous stasis changes bilateral lower extremity,calfs nontender to palpation Psych: Normal mood and affect Neuro: AAO x 3, speech is clear, no peripheral sensory deficits (Kayla Perez PA-C) Laboratory Results Last 24 Hours Test 07/08/16 13:25 07/08/16 17:30 07/09/16 05:30 07/09/16 09:31 White Blood Count 12.12 K/uL 8.36 K/uL Red Blood Count 3.19 M/uL 2.83 M/uL Hemoglobin 9.0 g/dL 7.9 g/dL Hematocrit 27.1 % 24.0 % Mean Corpuscular Volume 85.0 fL 84.8 fL Mean Corpuscular Hemoglobin 28.2 pg 27.9 pg Mean Corpuscular Hemoglobin Concent 33.2 g/dl 32.9 g/dl RDW Standard Deviation 46.0 fL 45.6 fL RDW Coefficient of Variation 14.8 % 14.7 % Platelet Count 374 K/uL 317 K/uL Mean Platelet Volume 8.8 fL 8.9 fL Prothrombin Time 18.4 SECONDS 18.6 SECONDS Prothromb Time International Ratio 1.7 1.7 Sodium Level 141 mmol/L 142 mmol/L Potassium Level 4.0 mmol/L 3.9 mmol/L Chloride Level 107 mmol/L 108 mmol/L Carbon Dioxide Level 29 mmol/L 28 mmol/L Anion Gap 5.0 mmol/L 6.0 mmol/L Blood Urea Nitrogen 12 mg/dl 13 mg/dl Creatinine 0.88 mg/dl 0.73 mg/dl Est Creatinine Clear Calc Drug Dose 117.2 ml/min 141.2 ml/min Estimated GFR () 103.0 111.2 Estimated GFR (Non- 88.9 96.0 BUN/Creatinine Ratio 14.2 17.6 Random Glucose 84 mg/dl 134 mg/dl Calcium Level 8.1 mg/dl 7.4 mg/dl Total Bilirubin 0.9 mg/dl Direct Bilirubin 0.2 mg/dl Aspartate Amino Transf (AST/SGOT) 11 U/L Alanine Aminotransferase (ALT/SGPT) 10 U/L Alkaline Phosphatase 68 U/L Total Protein 6.2 gm/dl Albumin 2.5 gm/dl Urine Color YELLOW Urine Appearance CLEAR Urine pH 8.0 Urine Specific [place] 1.013 Urine Protein NEG Urine Glucose (UA) NEG Urine Ketones NEG Urine Occult Blood NEG Urine Nitrite NEG Urine Bilirubin NEG Urine Urobilinogen NEG Urine Leukocyte Esterase NEG Urine WBC (Auto) 0 /hpf Urine RBC (Auto) 0-4 /hpf Urine Hyaline Casts (Auto) 0 /lpf Urine Epithelial Cells (Auto) 0-5 /lpf Urine Bacteria (Auto) NEG Iron Level 14 mcg/dl Total Iron Binding Capacity 182 mcg/dl Transferrin 144 mg/dl Ferritin 116.9 ng/ml Vitamin B12 Level 294 pg/mL Folate 13.71 ng/mL Transferrin % Saturation % (Kayla Perez, NELSON) Assessment and Plan Mr. Lopez is a 66 y/o male with PMHx of HTN, DVT after TKA (6 years ago), SABRINA on CPAP, Obesity, BPH with LUTS, Gout, Venous Insufficiency, and S/P R SURJIT (Apr 2016). Patient then develop an infection in the R hip and underwent irrigation and debridement on 06/26. He currently follows with ID and Wound with [facility] from the [facility] and just recently had wound vac removed. Over the past 2-3 days he has progressively felt worse and weaker. S/P R SURJIT with Open Surgical Wound: - Per primary team, wound care, ID - Daptomycin 925 mg IV daily, vancomycin impregnated beads in the hip wound in place. Per ortho, serosanginous drainage is likely a result of vancomycin beads which will desolve and reduce over period of time. - Analgesia with Roxicodone 5-10 mg Q4H PRN, Dilaudid 1 mg IV Q4H PRN for wound washing/debridement - Regarding the question of transfusion, I do not think the pt needs it at this time. Hgb is 7.9, but he is not acutely bleeding, denies lightheadedness, dizziness currently. He does report a history of orthostatic when he goes from sit to stand position, but this has been chronic. If hemoglobin drops less than 7 I would transfuse. - PT/OT eval Weakness: Likely 2/2 Wound Infection, anemia and severe protein malnutrition - Will add boost for supplementation - B12 is on the low side of normal, consider additional supplementation Anemia - Anemia workup: iron low, TIBC low, B12/folate ok, transferrin in process HTN: Off Medications - Recently on atenolol and losartan/HCTZ - has been discontinued by PCP 2/2 lightheadedness/dizziness/orthostatic hypotension DVT after TKA (6 years ago): - Warfarin 5 mg daily - Trend INR SABRINA on CPAP: - May use own CPAP - Likely obesity hypoventilation syndrome BPH w/ LUTS: - Proscar 5 mg daily and Flomax 0.4 mg daily Gout: - Allopurinol 300 mg daily Venous Insufficiency: - Pamelor 20 mg daily DVT Prophylaxis: Warfarin CODE STATUS: FULL CODE Disposition: From home, likely will need a home health on discharge, possible within the next 1-2 days per primary service (Kayla Perez PA-C) Attending Attestation: Pt seen/examined, chart reviewed, care plan d/w OPAL Perez. I agree w/ the meneses components of her documentation except - patient had chills earlier this week (no fever, however), and has had significant fatigue with dizziness/lightheadedness. VSS no fever gen - NAD, obese mouth - MMM neck - no JVD heart - RRR lungs - CTA b/l abd - obese, soft, NT ext - right hip dressing intact musculo - no gouty arthritis of any large joint skin - pallor; Florentino catheter right chest clean labs hb 7.9 A/P: recent chills, fatigue, weakness - in light of ongoing infection of right hip, florentino catheter, etc -- obtain 2 sets of blood cx's with 1 set from the central line. check cortisol, sed rate, mag. cont daptomycin as recommended by ID. anemia - acute/chronic - suspect chronic is due to anemia of chronic disease, blood loss from recent surgeries, etc. b12 level is low-normal -- replace. in light of fatigue, weakness, dizziness with standing/walking, dyspnea - reasonable to assume he is somewhat symptomatic from the anemia. Tx 2 units PRBCs today. fatigue - likely multifactorial. cortisol normal. folate normal. most recent TSH normal. anemia and right hip infection likely largest players. other plans per Ms. Perez. Delano Matos MD (Delano Matos MD)
--- NOTE | 2016-07-09 12:43 | Progress Note ---
Progress Note Date of Service Jul 09, 2016. Progress Note ID Consult Dictated #[id number] A/P: 1. 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 Leukocytosis - resolved -Continue Dapto, no plans for OR, vac to be replaced tomorrow -H/H decreased since admission, await repeat, ? transfusion based on results -If labs remain nml, he is clear for d/c from ID standpoint on increased protein and continue abx at [facility], will need outpt follow up -Will follow, thank you
--- NOTE | 2016-07-09 13:10 | INFECT. DISEASE CONSULTATION ---
DATE OF CONSULTATION: 07/09/2016 DATE OF CONSULTATION: 07/09/2016. REQUESTING PHYSICIAN: Dr. Oconnor. HISTORY OF PRESENT ILLNESS: This is a 66-year-old gentleman who was sent in from the wound care center yesterday after being evaluated by both the wound care center and myself. He did have significant dizziness and fatigue, which started a few days prior. He was hypotensive earlier this week while at the wound care center and again at his primary care physician's office on Wednesday. His antihypertensives were discontinued as a consequence of this. He does have a recent right hip revision surgery secondary to infection. Intraoperative cultures grew coagulase negative staph. However, no sensitivities were done. He was discharged home on 06/30/2016 empirically on daptomycin therapy and he remains on this. He has been going to the medical therapy unit for daptomycin therapy and has been tolerating this well. He denied any fevers or chills at home, but states that he had generalized fatigue and dizziness. He states he was eating well and keeping herself hydrated however his blood pressure remained low. He did not have an elevated white blood cell count, but did have a low hemoglobin. He has been complaining of increased drainage from the hip and he did have increased canisters delivered for this. Because of all these symptoms and abnormal laboratory studies discussion was had with the patient and his in the wound center yesterday and he did come to the Emergency Room for further evaluation and treatment. He was evaluated by orthopedic surgery in the Emergency Room yesterday after his VAC had been removed at the wound center and his wound does appear to be granulating and healing well. There was no purulent drainage and the decision was made for no further surgical debridement and/or exploration. He has been continued on daptomycin. His hemoglobin was normal yesterday, but this morning dropped to 7.9. His white blood cell count has been within normal limits. Creatinine and LFTs are within normal limits. Urinalysis was unremarkable. Electrolytes are within normal limits. He has been afebrile since admission to the hospital. His only lab abnormality was a mild leukocytosis yesterday which has resolved. The wound is packed and is draining but being changed frequently. He is due to have a VAC placed tomorrow. A repeat H\T\H is pending and depending on the results of this he may receive a blood transfusion prior to discharge to home. His nutrition has been addressed and his protein intake will be increased as well. He currently is sitting up in bed and states he is feeling significantly better than he was yesterday. He continues to deny any fevers. He is eating well. He does have some pain in the hip but this is well controlled. He denies any nausea, vomiting, diarrhea or abdominal pain. He is tolerating dapto well. All remaining review of systems are reviewed and are negative except or as noted above. PAST MEDICAL HISTORY: Significant for DVT, hypertension, sleep apnea and obesity. PAST SURGICAL HISTORY: Significant for knee replacement bilaterally. A hip replacement which was recently repaired, inguinal hernia repair, cholecystectomy, appendectomy. FAMILY HISTORY: Unremarkable. SOCIAL HISTORY: Negative for tobacco use, alcohol use or drug use. He is and lives with his . He denies any recent sick contacts. ALLERGIES: He has no known drug allergies. CURRENT MEDICATIONS: Include Boost, Protonix, allopurinol, Proscar, vitamin D, daptomycin, subQ heparin, Colace, nortriptyline, Flomax, Dilaudid, Coumadin, Benadryl, Zofran, Celebrex, Roxicodone. PHYSICAL EXAMINATION: VITAL SIGNS: He is afebrile since admission to the hospital, pulse 87, respiratory rate is 18, blood pressure is 146/73, oxygen saturation is 99% on room air. GENERAL: He is awake, alert and oriented x3. He is in no acute distress. He looks remarkably better compared to yesterday. HEAD, EYES, EARS, NOSE, AND THROAT: Mucous membranes are moist. HEART: Regular. LUNGS: Clear bilaterally. ABDOMEN: Soft, nontender, nondistended. There is no edema. SKIN: Without rash. Right hip dressing is clean, dry and intact. LABORATORY STUDIES: CBC today reveals a white blood cell count of 8.3 down from 12.1, hemoglobin 7.9, platelets are 317. Chemistry panel reveals a sodium of 142, potassium 3.9, chloride 108, bicarbonate 28, BUN 13, creatinine 0.7, glucose is 134. LFTs are within normal limits on admission. Urinalysis is unremarkable. There is no micro to review. There is no imaging to review. ASSESSMENT AND PLAN: Right hip infection with coagulase negative staph on daptomycin therapy. He will continue on daptomycin and has plans to follow repeatedly at the [facility] after discharge from the hospital. From an infectious diseases standpoint, he is stable; however, he will undergo increased protein and nutritional support in addition to fluids and potentially a blood transfusion. If his repeat laboratory studies are within normal limits certainly he will be stable for discharge to home with continued plan for daptomycin infusion at the medical therapy unit and continued wound care followup both with the wound care team as well as infectious diseases. Thank you for this consultation.
[2016-07-09] MEDS: BOOST PLUS VANILLA PO SCH ×4 (13:39→20:29)
--- NOTE | 2016-07-09 14:20 | PROGRESS NOTE ---
DATE: 07/09/2016 DATE: 07/09/2016. SUBJECTIVE: The patient is seen today following admission to the hospital yesterday due to increased dizziness and anemia. The patient states she is feeling fine today and denies any dizziness, chest pain, shortness of breath, abdominal discomfort, nausea or vomiting. The patient denies any other complaints. OBJECTIVE: The patient's vital signs were reviewed and found to be unremarkable. The patient is afebrile. The wound today has a good appearance of starting granulation tissue evolving. There is no necrotic tissue noted. No active drainage. No odor present. No periwound erythema, edema or tenderness to palpation in the region. ASSESSMENT: Postoperative wound right hip, stable. PLAN: At this time, no debridement is indicated. The site will continue to be managed with a wound VAC, black foam, 125 mm of negative pressure. The wound VAC application will occur tomorrow so that he maintains a Wednesday, Wednesday, Wednesday schedule. At the current time, the site will be dressed with Aquacel and ABDs changed p.r.n. until VAC application tomorrow.
[2016-07-09] MEDS: CYANOCOBALAMIN 500 MCG TAB (VIT B-12) PO SCH (15:14)
[2016-07-09] MEDS: WARFARIN SOD 5 MG TAB PO SCH (15:14)
[2016-07-09] MEDS ORDERED: CHOLECALCIFEROL 1000 INTER.UNIT TAB PO ONE (19:57)
[2016-07-09] MEDS: TAMSULOSIN HCL 0.4 MG CAP PO SCH (20:29)
[2016-07-09] MEDS: NORTRIPTYLINE HCL 10 MG CAP PO SCH (20:29)
[2016-07-10] MEDS: D5W AND 1/2NSS 1,000 ML IV SCH (04:45)
[2016-07-10 06:07] LABS: HEMATOCRIT 28.7 % (42-52); MEAN CELL VOLUME 85.7 fL (80-100); MEAN CORPUSCULAR HEMOGLOBIN 28.4 pg (25-34); MEAN CORPUSCULAR HGB CONC 33.1 g/dl (32-36); MEAN PLATELET VOLUME 9.4 fL (7.4-10.4); PLATELET COUNT 328 K/uL (130-400); RED BLOOD COUNT 3.35 M/uL (4.7-6.1); WHITE BLOOD COUNT 7.74 K/uL (4.8-10.8)
[2016-07-10 06:19] LABS: INR 1.6 (0.9-1.1); PROTHROMBIN TIME (PATIENT) 17.4 SECONDS (9.0-12.0)
[2016-07-10 06:49] LABS: BUN/CREATININE RATIO 18.3 (10-20); CALCIUM 7.7 mg/dl (8.5-10.1); CREATININE 0.66 mg/dl (0.60-1.40); MAGNESIUM 2.2 mg/dl (1.8-2.4); POTASSIUM 3.8 mmol/L (3.5-5.1)
[2016-07-10 07:12] VITALS: BP 110/65; PULSE 80; TEMP 36.6; O2SAT 98
[2016-07-10] MEDS: OXYCODONE HCL IR 5 MG TAB (IMMEDIATE RELEASE) PO PRN ×2 (08:10→16:00)
[2016-07-10] MEDS: CYANOCOBALAMIN 500 MCG TAB (VIT B-12) PO SCH (08:10)
[2016-07-10] MEDS: SODIUM CHLORIDE 0.9% IV SCH (08:10)
[2016-07-10] MEDS: DAPTOMYCIN IV SCH (08:10)
[2016-07-10] MEDS: BOOST PLUS VANILLA PO SCH ×4 (08:10→13:33)
[2016-07-10] MEDS: CHOLECALCIFEROL 1000 INTER.UNIT TAB PO SCH (08:11)
[2016-07-10] MEDS: DOCUSATE SODIUM 100 MG CAP PO SCH (08:11)
[2016-07-10] MEDS: ALLOPURINOL 300 MG TAB PO SCH (08:11)
[2016-07-10] MEDS: PANTOprazole SOD 40 MG TAB PO SCH (08:11)
[2016-07-10] MEDS: FINASTERIDE 5 MG TAB PO SCH (08:11)
[2016-07-10] MEDS ORDERED: CHOLECALCIFEROL 1000 INTER.UNIT TAB PO SCH (09:00)
--- NOTE | 2016-07-10 09:17 | Discharge Instructions ---
Discharge Instructions Date of Service Jul 10, 2016. Admission Reason for Admission: Right Hip Wound Drainage Discharge Discharge Diagnosis / Problem: Right Hip Wound Drainage Discharge Goals Goal(s): Decrease discomfort, Improve function Activity Recommendations Activity Limitations: per Instructions/Follow-up section Weightbearing Status: Right weightbearing (as tolerated) . Instructions / Follow-Up Instructions / Follow-Up Resume your schedule for Wound Vac change as per Wound Care Center. (M,W,F) Resume receiving your Daptomycin daily at the [facility]. You will need to continue your weekly labs that will be sent to Dr Love. Continue to follow your Total Hip Replacement instructions that you received from your previous admission (06/30/16) If you have any questions, please call Dr Oconnor's office. [phone] Resume your INR blood draws to monitor your Coumadin. Follow up with Dr Oconnor in 7-10 days. Call for an appt. [phone] Love in 1 week. Call for appt. [phone] Follow up with Wound Care Center on Wednesday for wound vac change unless otherwise specified. Current Hospital Diet Patient's current hospital diet: Regular Diet Discharge Diet Recommended Diet: Regular Diet Pending Studies Studies pending at discharge: no Medical Emergencies . Who to Call and When: Medical Emergencies: If at any time you feel your situation is an emergency, please call 911 immediately. . Non-Emergent Contact Non-Emergency issues call your: Surgeon Call Non-Emergent contact if: temperature is above 101.5, your pain is not controlled, your pain is worsening, wound has increased drainage, wound has increased redness . "Provider Documentation" section prepared by Ky Garrido. VTE Core Measure Inpt VTE Proph given/why not?: Other Anticoagulation, T.E.D. Stockings, SCD's [place] Drug Monitoring Program Search Results: patient reviewed within database, no issues identified Drug Monitoring Findings: Patient receiving narcotics from Pain Management in [place].
[2016-07-10] MEDS ORDERED: DAPT500I IV ×2 (09:21)
[2016-07-10] MEDS ORDERED: VTMB12 PO ×2 (09:48)
[2016-07-10] MEDS ORDERED: CHOL20007 PO ×2 (09:48)
--- NOTE | 2016-07-10 10:52 | Progress Note ---
Subjective Date of Service: Jul 10, 2016. Subjective pt s/p transfusion 2 units blood yesterday, tolerated well. remains on dapto, tolerating well. no fevers overnight. electrolytes stable, bp stable. wbc improved. hgb >9 today. for d/c to home with plans to continue at [facility] for abx. also for vac placement today and plans to return to wound center on Wednesday. No overnight events. Problem List Medical Problems: (1) Postoperative wound infection of right hip Status: Acute Objective Vital Signs Date Time Temp Pulse Resp B/P Pulse Ox O2 Delivery O2 Flow Rate FiO2 07/10/16 07:25 Room Air 07/10/16 07:12 36.6 80 16 110/65 98 Room Air 07/09/16 23:05 36.8 88 20 134/82 98 Room Air 07/09/16 22:00 36.6 80 18 110/65 98 07/09/16 21:40 36.4 81 18 124/69 97 07/09/16 20:40 37.0 79 16 121/70 98 07/09/16 20:10 36.8 94 18 134/72 98 07/09/16 19:55 37.2 85 18 117/46 98 07/09/16 19:34 36.8 96 18 132/76 07/09/16 19:30 Room Air CPAP 07/09/16 18:50 36.8 95 18 155/87 94 07/09/16 18:20 36.8 97 18 132/86 93 07/09/16 17:20 37.1 87 20 129/57 99 07/09/16 16:50 37.1 87 14 108/65 98 07/09/16 16:26 36.8 59 18 118/59 98 07/09/16 15:40 36.8 78 16 144/78 98 Room Air Laboratory Results Last 24 Hours Test 07/09/16 14:05 07/10/16 05:25 Erythrocyte Sedimentation Rate 30 mm/hr 25-Hydroxy Vitamin D Total 26.8 ng/ml White Blood Count 7.74 K/uL Red Blood Count 3.35 M/uL Hemoglobin 9.5 g/dL Hematocrit 28.7 % Mean Corpuscular Volume 85.7 fL Mean Corpuscular Hemoglobin 28.4 pg Mean Corpuscular Hemoglobin Concent 33.1 g/dl RDW Standard Deviation 46.0 fL RDW Coefficient of Variation 14.7 % Platelet Count 328 K/uL Mean Platelet Volume 9.4 fL Prothrombin Time 17.4 SECONDS Prothromb Time International Ratio 1.6 Sodium Level 142 mmol/L Potassium Level 3.8 mmol/L Chloride Level 108 mmol/L Carbon Dioxide Level 25 mmol/L Anion Gap 9.0 mmol/L Blood Urea Nitrogen 12 mg/dl Creatinine 0.66 mg/dl Est Creatinine Clear Calc Drug Dose 156.2 ml/min Estimated GFR () 116.0 Estimated GFR (Non- 100.0 BUN/Creatinine Ratio 18.3 Random Glucose 100 mg/dl Calcium Level 7.7 mg/dl Magnesium Level 2.2 mg/dl Assessment and Plan (1) Postoperative wound infection of right hip Assessment & Plan: s/p transfusion, hemodynamically stable. ok for d/c for d/c from ID standpoint, will need weekly cbc, cmp, esr, cpk while on therapy. will plan to follow at wound center.
--- NOTE | 2016-07-10 10:55 | Hospitalist Progress Note ---
Hospitalist Progress Note Date of Service Jul 10, 2016. (Kayla Perez PA-C) Subjective Pt evaluation today including: conversation w/ patient, physical exam, chart review, lab review, review of studies, review of inpatient medication list The patient was seen and examined this morning. Pt reports doing well. He is just finishing up having a wound vac placed. Pt states dilaudid administered prior to wound vac and this was much more tolerable than before. He denies any acute complaints. Pt is eating and drinking well. He has not had a BM in 2 days but is passing gas. He feels as if he needs to have a bm. Pt is anticipating discharge home today. Constitutional: No chills, No fever, No sweats Eyes: No diplopia, No redness ENT: No nasal symptoms, No sore throat, No trouble swallowing Respiratory: No cough, No dyspnea on exertion, No shortness of breath Cardiovascular: No chest pain, No palpitations Abdomen: No diarrhea, No nausea, No pain, No vomiting Musculoskeletal: + problem reported (R hip pain, tolerable, wound vac in place) Male : No dysuria Neurologic: No numbness/tingling, No weakness Skin: No itch, No rash (Kayla Perez PA-C) Objective Vital Signs Date Time Temp Pulse Resp B/P Pulse Ox O2 Delivery O2 Flow Rate FiO2 07/10/16 07:25 Room Air 07/10/16 07:12 36.6 80 16 110/65 98 Room Air 07/09/16 23:05 36.8 88 20 134/82 98 Room Air 07/09/16 22:00 36.6 80 18 110/65 98 07/09/16 21:40 36.4 81 18 124/69 97 07/09/16 20:40 37.0 79 16 121/70 98 07/09/16 20:10 36.8 94 18 134/72 98 07/09/16 19:55 37.2 85 18 117/46 98 07/09/16 19:34 36.8 96 18 132/76 07/09/16 19:30 Room Air CPAP 07/09/16 18:50 36.8 95 18 155/87 94 07/09/16 18:20 36.8 97 18 132/86 93 07/09/16 17:20 37.1 87 20 129/57 99 07/09/16 16:50 37.1 87 14 108/65 98 07/09/16 16:26 36.8 59 18 118/59 98 07/09/16 15:40 36.8 78 16 144/78 98 Room Air (Kayla Perez PA-C) Physical Exam General Appearance: WD/WN, no apparent distress, + obese Eyes: PERRL, EOMI ENT: hearing grossly normal, pharynx normal Neck: supple, no JVD Respiratory/Chest: lungs clear, no respiratory distress, no accessory muscle use Cardiovascular: regular rate, rhythm, no edema Abdomen: normal bowel sounds, non tender, soft, + pertinent finding (obese + panis) Extremities: + pertinent finding (R hip wound with wound vac in place, + chronic bilateral venous stasis changes, 1+ pitting BLE. ) Neurologic/Psychiatric: no motor/sensory deficits, alert, oriented x 3 Skin: normal color, warm/dry (Kayla Perez, OPAL-C) Laboratory Results Last 24 Hours Test 07/09/16 14:05 07/10/16 05:25 Erythrocyte Sedimentation Rate 30 mm/hr 25-Hydroxy Vitamin D Total 26.8 ng/ml White Blood Count 7.74 K/uL Red Blood Count 3.35 M/uL Hemoglobin 9.5 g/dL Hematocrit 28.7 % Mean Corpuscular Volume 85.7 fL Mean Corpuscular Hemoglobin 28.4 pg Mean Corpuscular Hemoglobin Concent 33.1 g/dl RDW Standard Deviation 46.0 fL RDW Coefficient of Variation 14.7 % Platelet Count 328 K/uL Mean Platelet Volume 9.4 fL Prothrombin Time 17.4 SECONDS Prothromb Time International Ratio 1.6 Sodium Level 142 mmol/L Potassium Level 3.8 mmol/L Chloride Level 108 mmol/L Carbon Dioxide Level 25 mmol/L Anion Gap 9.0 mmol/L Blood Urea Nitrogen 12 mg/dl Creatinine 0.66 mg/dl Est Creatinine Clear Calc Drug Dose 156.2 ml/min Estimated GFR () 116.0 Estimated GFR (Non- 100.0 BUN/Creatinine Ratio 18.3 Random Glucose 100 mg/dl Calcium Level 7.7 mg/dl Magnesium Level 2.2 mg/dl (Kayla Perez PA-C) Assessment and Plan Mr. Lopez is a 66 y/o male with PMHx of HTN, DVT after TKA (6 years ago), SABRINA on CPAP, Obesity, BPH with LUTS, Gout, Venous Insufficiency, and S/P R SURJIT (Apr 2016). Patient then develop an infection in the R hip and underwent irrigation and debridement on 06/26. He currently follows with ID and Wound with Dapt[facility] therapy from the [facility] and just recently had wound vac removed. New wound vac has been placed and pt is now s/p 2 U PRBC transfusion. S/P R SURJIT with Open Surgical Wound: - Per primary team, wound care, ID - Daptomycin 925 mg IV daily, vancomycin impregnated beads in the hip wound in place. Per ortho, serosanginous drainage is likely a result of vancomycin beads which will desolve and reduce over period of time. - Wound vac placed by nursing this morning, finished while I was at bedside - Analgesia with Roxicodone 5-10 mg Q4H PRN, Dilaudid 1 mg IV Q4H PRN for wound washing/debridement - pt reports worked very well today. - Pt is s/p 2 U PRBCs on 07/09/16, he reports some improvement of overall fatigue. He does report a history of orthostatic when he goes from sit to stand position, and that he has not experienced this today - Continue B12 supplementation - PT/OT eval Weakness: Likely 2/2 Wound Infection, anemia and severe protein malnutrition - Will add boost for supplementation - B12 is on the low side of normal, cont additional supplementation Anemia - Anemia workup: iron low, TIBC low, B12/folate ok, transferrin 144, low. 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 I agree w/ the meneses components of her documentation. Pt feeling better. Not as dizzy s/p PRBC transfusion. Appetite improved. Less fatigue. VSS no fever gen - obese, NAD heart - RRR lungs - CTA b/l abd - soft, NT right hip - large woundvac dressing in place blood cx's negative to date Hb improved A/P: 1. acute/chronic anemia s/p 2 units PRBCs with stable H/H 2. dizziness/fatigue, likely due in part to #1 3. right hip infection s/p washout with implantable abx beads several weeks ago ; s/p placement of wound vac 4. vitamin D insufficiency 5. anorexia - improved from medical standpoint can d/c home Brenda MATOS MD (Delano Matos MD)
[2016-07-10 14:32] VITALS: BP 110/65; PULSE 80; TEMP 36.6; O2SAT 98
[2016-07-10] MEDS: WARFARIN SOD 5 MG TAB PO SCH (15:59)
--- NOTE | 2016-07-13 17:05 | DISCHARGE SUMMARY ---
DISCHARGE DIAGNOSIS: Increased wound drainage. SECONDARY DIAGNOSES: History of deep venous thrombosis status post total knee arthroplasty 6 years ago, hypertension, sleep apnea, obesity, and infected right total hip arthroplasty. CONSULTS: Medina Knox PA-C/Mike Chavez MD and Dr. Amparo Love. COMPLICATIONS: None. PROCEDURES: None. BRIEF HISTORY: As dictated in history and physical. HOSPITAL SUMMARY: The patient was admitted on the above noted date with noted right SURJIT infection. He had undergone irrigation and debridement with replacement of polyethylene liner and femoral head by Dr. Anton Oconnor, approximately 8-10 days prior. The patient had been seen in the wound care center and was having increased weakness and it was felt he should be sent to the emergency room where he was admitted for further care. Medical consult was obtained and the patient was followed during his stay by wound care and by medicine service as well as infectious disease. It was felt by Dr. Anton Oconnor that no surgery was needed at this time and plans were to boost up his nutritional status and hopefully decrease his weakness and continue his outpatient IV antibiotics and wound VAC care. The wound VAC had been removed at the wound care center and continued dressing changes were done. Plans for infectious disease were to continue his daptomycin and the patient was seen by Dr. Morrison whose plans were for reapplication of wound VAC which was done was done on 07/10/2016. He was otherwise remaining stable and by 07/10/2016, he was eating and drinking well and remained medically stable as well as orthopedically stable and it was felt that he could be discharged to home. DISCHARGE INSTRUCTIONS: The patient was discharged to home in satisfactory condition on 07/10/2016. DIET: Regular. ACTIVITY: Weightbearing as tolerated, right lower extremity. DISCHARGE INSTRUCTIONS: Resume your schedule for wound VAC change as per wound care center Wednesday, Wednesday, Wednesday and resume receiving daptomycin daily at the [facility], continue weekly labs for this medication which will be sent to Dr. Love. Continue to follow total hip replacement instructions that you received from previous admission from 06/30/2016 discharge. If have any questions, please call Dr. Oconnor's office. Resume INR blood draws to monitor Coumadin. Follow up with Dr. Oconnor in 7-10 days. Follow up with Dr. Love in 1 week. Follow up with wound care center on Wednesday for wound VAC change unless otherwise specified.
[2016-08-26] MEDS ORDERED: CIPR-255 PO (15:47)
[2016-08-26] MEDS ORDERED: DAPT500I IV (15:49)
[2016-09-02] MEDS ORDERED: CIPR-255 PO (10:05)
[2016-09-07] MEDS ORDERED: DOXY-300 PO (13:53)
[2016-10-06] MEDS ORDERED: DAPT500I IV. (11:31)
[2016-10-06] MEDS ORDERED: ERTA1INJ IV (11:31)
[2016-10-14] MEDS ORDERED: AMOX875T PO (10:09)
[2016-10-16] MEDS ORDERED: TEST5GEL TOP (08:10)
[2016-10-28] MEDS ORDERED: HYZ/50125 PO (09:42)
[2016-10-28] MEDS ORDERED: DOXY-300 PO (10:04)
[2016-11-18] MEDS ORDERED: ERTA1INJ IV (09:37)
[2016-11-18] MEDS ORDERED: DAPT500I IV (09:37)
[2017-02-10] MEDS ORDERED: LEVO1TAB34 PO (10:06)
[2017-02-22] MEDS ORDERED: LEVO1TAB34 PO (13:42)
[2017-03-02] MEDS ORDERED: DAPT500I IV (11:57)
[2017-03-02] MEDS ORDERED: ERTA1INJ IV (11:57)
[2017-03-02] MEDS ORDERED: NZRCR EXT (15:11)
[2017-03-02] MEDS ORDERED: LVQ750 PO (15:11)
== END 2016-07-10 16:24 | disposition home or self-care (01) | DRG 463 ==
LOC: ENRESERVDT → ENRESERVTM → C.EDB 10:35 → C.MSW 13:04
PROVIDERS: ADMIT Orthopaedic Surgery; ATTEND Orthopaedic Surgery
PROC: 0JBL0ZZ Excision of Right Upper Leg Subcutaneous Tissue and Fascia, Open Approach (ICD-10-PCS; principal; 2016-07-06)
DX: T84.51XA Infection and inflammatory reaction due to internal right hip prosthesis, initial encounter (principal); E43 Unspecified severe protein-calorie malnutrition; Z68.42 Body mass index [BMI] 45.0-49.9, adult; Y79.2 Prosthetic and other implants, materials and accessory orthopedic devices associated with adverse incidents; B95.7 Other staphylococcus as the cause of diseases classified elsewhere; I95.1 Orthostatic hypotension; D63.8 Anemia in other chronic diseases classified elsewhere; R53.83 Other fatigue; I10 Essential (primary) hypertension; G47.33 Obstructive sleep apnea (adult) (pediatric); N40.1 Benign prostatic hyperplasia with lower urinary tract symptoms; M10.9 Gout, unspecified; E53.8 Deficiency of other specified B group vitamins; I87.2 Venous insufficiency (chronic) (peripheral); E66.9 Obesity, unspecified; Z96.641 Presence of right artificial hip joint; Z96.653 Presence of artificial knee joint, bilateral; Z99.89 Dependence on other enabling machines and devices; Z86.718 Personal history of other venous thrombosis and embolism; Z79.1 Long term (current) use of non-steroidal anti-inflammatories (NSAID); Z79.01 Long term (current) use of anticoagulants; Z79.899 Other long term (current) drug therapy; Z79.891 Long term (current) use of opiate analgesic; T81.4XXA Infection following a procedure, initial encounter; Y83.8 Other surgical procedures as the cause of abnormal reaction of the patient, or of later complication, without mention of misadventure at the time of the procedure; R42 Dizziness and giddiness; G47.30 Sleep apnea, unspecified; E66.01 Morbid (severe) obesity due to excess calories

== ENCOUNTER → 2016-08-18 | Outpatient (CLI) | payer OTHER, MEDICARE ==
[~2016-08-18] MED LIST changes: +ACET-1256 PO; +AMOX875T PO; -ATEN50TA PO; +CHOL20007 PO; +CIPR-255 PO; +CYAN1CAP3 PO; +DAPT500I IV.; +DOXY-300 PO; +ERTA1INJ IV; +HYZ/50125 PO; +LEVO1TAB33 PO; +LEVO1TAB34 PO; -LOSA100T33 PO; +LVQ750 PO; +NZRCR EXT; -PROP60CA5 PO; -SNK PO; +TEST5GEL TOP; +VTMB12 PO; -WARF5TAB90 PO
[2016-08-18 17:09] LABS: URINE APPEARANCE CLEAR (CLEAR); URINE BILIRUBIN NEG (NEG); URINE COLOR YELLOW; URINE EPITHELIAL CELL AUTO 0-5 /lpf (0-5); URINE NITRITE NEG (NEG); URINE SPECIFIC GRAVITY 1.021 (1.000-1.030); UROBILINOGEN NEG (NEG)
[2016-08-18 17:13] LABS: MANUAL MICROSCOPIC REQUIRED? NO; REVIEW REQ? NO
== END | disposition home or self-care (01) ==
LOC: C.LABBC 13:59
PROVIDERS: ATTEND Physician Assistant Medical
DX: R30.0 Dysuria (principal)

== ENCOUNTER 2016-08-21 13:45 | Inpatient (IN) | payer OTHER, MEDICARE ==
[~2016-08-21] VITALS: Ht 175.3 cm; Wt 154.0 kg
[~2016-08-21 13:45] MED LIST changes: -ACET-1256 PO; -AMOX875T PO; -CIPR-255 PO; -CYAN1CAP3 PO; -DAPT500I IV.; -DOXY-300 PO; -ERTA1INJ IV; -HYZ/50125 PO; -LEVO1TAB33 PO; -LEVO1TAB34 PO; -LVQ750 PO; -NZRCR EXT; -OPTIRAY 320 IV PRN; -TEST5GEL TOP
[2016-08-21 14:31] VITALS: BP 162/87; PULSE 94; TEMP 37; O2SAT 98
[2016-08-21] MEDS ORDERED: ACETAMINOPHEN 500 MG TAB PO PRN (14:45)
[2016-08-21 15:00] VITALS: BP 162/87; PULSE 94; TEMP 37; O2SAT 98; Ht 175.3 cm; Wt 154.0 kg
[2016-08-21] MEDS ORDERED: MAGNESIUM HYDROXIDE SUSP 30 ML UDC PO PRN (15:15)
[2016-08-21] MEDS ORDERED: ONDANSETRON INJ 2 MG/ML 2 ML VIAL IV PRN (15:15)
[2016-08-21] MEDS ORDERED: VANCOMYCIN CONSULT ACTIVE PRN (15:30)
--- NOTE | 2016-08-21 15:31 | History and Physical ---
History & Physical Date & Time of Service: August 21, 2016 at 15:18 Chief Complaint: Lower Extremity Cellulitis Primary Care Physician: Costa Garcia D.O.Int.Med. History of Present Illness Source: patient 66 y/o M who was sent here from [facility] by Dr. Morrison for worsening cellulitis. Pt had a R hip replacement with Dr. Oconnor on 05/08/16. There were no issues for about the first month, but then while pt was on a cruise he started to have more intense pain. Follow-up appts revealed an infection in the hip hardware. He underwent a surgical revision with abx bead placement on 06/26/16 and has been on IV dapto QD since that time with a wound vac. Dr. Morrison states that things were healing quite well. Unfortunately, pt had return of knee pain one week ago. He felt it was similar to the pain he had prior to his hip replacement. He has increase in swelling, although the incision site itself has continued to look improved otherwise. No redness noted, however very TTP. This continued to get worse despite ongoing [facility] interventions. Dr. Morrison sent pt for a CT hip today that revealed extensive cellulitis and possible abscess, so pt was referred for direct admission. Pt states he feels fine otherwise. Pt denies fever, SOB, abd pain, n/v/c/d. ROS as noted above, otherwise neg. Pt notes increased urinary retention and dribbling over the last several weeks. Wakes frequently to urinate at night. PCP did a UA yesterday that was neg. Pt also notes an episode of L shoulder pain about 1 week ago. No chest pain. He took 5 baby aspirin without relief. He then took coumadin tablet from an old prescription. This pain has not returned. There were no associated sx with this and no prior hx of same. Past Medical/Surgical History Gout BPH Depression Family History Family history was reviewed; no changes noted. Social History Smoking Status: Never Smoker Alcohol Use: none Drug Use: none Marital Status: Occupational Status: retired Immunizations History of Influenza Vaccine: Yes History of Tetanus Vaccine?: No History of Pneumococcal: No History of Hepatitis B Vaccine: No Multi-Drug Resistant Organisms History of MDRO: No Allergies Coded Allergies: No Known Allergies (Unverified , 08/21/16) Home Medications Scheduled Acetaminophen (Tylenol), 1,000 MG PO PRN Allopurinol (Zyloprim), 300 MG PO QAM Cholecalciferol (Vitamin D3), 1 CAP PO QAM Cholecalciferol (Vitamin D3), 1 TAB PO DAILY Cyanocobalamin (Vitamin B-12), 1,000 MCG PO QAM Daptomycin (Daptomycin), 927 MG IV Q24H Finasteride (Proscar), 5 MG PO QAM Nortriptyline (Pamelor), 20 MG PO HS Oxycodone Ir (Roxicodone Ir), 5-10 MG PO Q4H Tamsulosin HCl (Tamsulosin HCl), 1 CAP PO HS Scheduled PRN Celecoxib (CeleBREX), 200 MG PO BID PRN for RN Physical Exam Vital Signs Date Time Temp Pulse Resp B/P Pulse Ox O2 Delivery O2 Flow Rate FiO2 08/21/16 14:31 37.0 94 20 162/87 98 Room Air General Appearance: no apparent distress, + obese Head: normocephalic, atraumatic Respiratory/Chest: normal breath sounds, no respiratory distress Cardiovascular: regular rate, rhythm, normal peripheral pulses Abdomen/GI: non tender, soft Extremities/Musculoskelatal: no calf tenderness, no pedal edema Neurologic/Psych: alert, normal mood/affect, oriented x 3 Skin: warm/dry, + pertinent finding (Bandage is clean, dry, and intact. Area of hardness/swelling just superior to bandage, no redness or swelling noted) Diagnostics Laboratory Results Results Past 24 Hours Test 08/21/16 15:05 Range/Units Diagnostic Radiology CT hip: 1. The examination is degraded by streak artifact from a right hip arthroplasty. 2. There is no clear evidence of osteomyelitis. No fracture is seen. 3. There is a large cutaneous defect/wound along the lateral aspect of the right hip at the level of the arthroplasty. There is overlying cellulitis, and extensive induration/phlegmonous change surrounding the wound which extends from the dermal surface to the arthroplasty itself, likely on an infectious basis. 4. A more organized fluid collection is suggested posterior to the subtrochanteric femur and likely represents abscess. 5. There is significant myositis involving the regional musculature including the gluteal and lateral thigh muscles. Impression Assessment and Plan 66 y/o M who was a direct admit on 08/21 for failure of outpt management of LE cellulitis. R LE cellulitis: Extensive and with possible abscess per CT Failed outpt management including daily IV dapto and wound vac CBC, PRP, blood cx pending Start vanco and monitor Follows with Dr. Love, c/s pending Dr. Morrison to see pt also BPH: increasing flomax and monitor Depression: continue pamelor Other: Full code, although pt states he does not wish for prolonged mechanical life support Reg diet Ambulation for DVT proph given possible need for OR Level of Care Med/Surg Resuscitation Status FULL RESUSCITATION VTE Prophylaxis VTE Risk Assessment Done? Y/N: Yes Risk Level: Low
[2016-08-21 15:58] LABS: HEMATOCRIT 34.4 % (42-52); MEAN CELL VOLUME 80.2 fL (80-100); MEAN CORPUSCULAR HEMOGLOBIN 25.6 pg (25-34); MEAN PLATELET VOLUME 9.2 fL (7.4-10.4); PLATELET COUNT 408 K/uL (130-400); RED BLOOD COUNT 4.29 M/uL (4.7-6.1); WHITE BLOOD COUNT 9.05 K/uL (4.8-10.8)
[2016-08-21 16:00] VITALS: O2SAT 98
[2016-08-21] MEDS: OXYCODONE HCL IR 5 MG TAB (IMMEDIATE RELEASE) PO PRN (16:00)
[2016-08-21] MEDS ORDERED: VANCOMYCIN INJ 2,700 MG in SODIUM CHLORIDE 0.9% 500ML 500 ML IV ONE (16:00)
[2016-08-21 16:21] LABS: BUN/CREATININE RATIO 16.1 (10-20); CALCIUM 7.9 mg/dl (8.5-10.1); CREATININE 0.68 mg/dl (0.60-1.40); POTASSIUM 3.8 mmol/L (3.5-5.1)
--- NOTE | 2016-08-21 17:04 | Medical Consult ---
Consultation Date of Consultation: August 21, 2016. Attending Physician: Fabienne Bronson DO Reason for Consultation: Failed outpatient daptomycin History of Present Illness 66-year-old male who is status post right hip replacement in April, who initially did well but then developed evidence surgical site infection, and was readmitted to the hospital and underwent surgical debridement, poly exchange, and antibiotic bead placement. Cultures at that time grew Staph aureus, and patient has been treated with IV daptomycin. [facility], and today was found to have evidence of worsening infection with significant induration of the hip. Underwent CT scan, read by me, which showed evidence of cellulitis and possible abscess formation. Patient has had mild increase in pain, no significant fever. Has been started empirically as discussed on Vancomycin and Zosyn. orthopedic follow-up is pending, cultures are pending. Past Medical/Surgical History Medical Problems: (1) Postoperative wound infection of right hip Status: Acute Medical Problems: (1) Post op infection (2) Right Hip Wound Drainage Surgical Problems: (1) Post-operative state (2) Post-operative state Family History Heart Disease Hypertension Parkinson's Disease Social History Smoking Status: Never Smoker Alcohol Use: none Drug Use: none Marital Status: Housing Status: lives with family Occupation Status: retired Allergies Coded Allergies: No Known Allergies (Unverified , 08/21/16) Current Inpatient Medications Current Inpatient Medications Medications (Trade) Dose Ordered Sig/Chris Route Start Time Stop Time Status Last Admin Dose Admin Acetaminophen (Tylenol Tab) 1,000 mg DAILY PRN PO 08/21/16 14:45 09/20/16 14:44 Allopurinol (Zyloprim Tab) 300 mg QAM PO 08/22/16 08:00 09/21/16 07:59 Cyanocobalamin (Vitamin B-12 Tab) 1,000 mcg QAM PO 08/22/16 08:00 09/21/16 07:59 Finasteride (Proscar Tab) 5 mg QAM PO 08/22/16 08:00 09/21/16 07:59 Nortriptyline HCl (Pamelor Cap) 20 mg HS PO 08/21/16 22:00 09/20/16 21:59 Oxycodone HCl (Roxicodone Immediate Rel Tab) 15 mg Q4H PRN PO 08/21/16 14:45 09/04/16 14:44 08/21/16 16:00 15 MG Cholecalciferol (Vitamin D Tab) 2,000 inter.unit QAM PO 08/22/16 08:00 09/21/16 07:59 Acetaminophen (Tylenol Tab) 650 mg Q4H PRN PO 08/21/16 15:15 09/20/16 15:14 Magnesium Hydroxide (Milk Of Magnesia Susp) 30 ml Q6H PRN PO 08/21/16 15:15 09/20/16 15:14 Ondansetron HCl 4 mg 4 mg Q6H PRN IV 08/21/16 15:15 09/20/16 15:14 Vancomycin HCl/ Sodium Chloride (Vancomycin Inj/ Nss 500ml) 530 ml @ 200 mls/hr Q12H IV 08/22/16 00:00 10/02/16 23:59 Tamsulosin HCl (Flomax Cap) 0.8 mg HS PO 08/21/16 22:00 09/20/16 21:59 Vancomycin HCl 1 ea 1 ea UD PRN N/A 08/21/16 15:30 09/20/16 15:29 Vancomycin HCl 2700 mg/Sodium Chloride 554 ml @ 200 mls/hr 1600 ONCE IV 08/21/16 16:00 08/21/16 18:46 08/21/16 16:56 200 MLS/HR Piperacillin Sod/ Tazobactam Sod/ Dextrose (Zosyn Iv/D5 100ml) 115 ml @ 200 mls/hr Q6 IV 08/21/16 18:00 08/31/16 17:59 UNV Review of Systems All systems were reviewed and are negative except as per HPI Physical Exam Date Time Temp Pulse Resp B/P Pulse Ox O2 Delivery O2 Flow Rate FiO2 08/21/16 15:00 37.0 94 20 162/87 98 Room Air 08/21/16 14:31 37.0 94 20 162/87 98 Room Air General Appearance: WD/WN, no apparent distress, + obese Head: normocephalic, atraumatic Eyes: normal inspection, EOMI, sclerae normal ENT: normal ENT inspection, pharynx normal Neck: supple, no adenopathy, thyroid normal, trachea midline Respiratory/Chest: chest non-tender, lungs clear, normal breath sounds, no respiratory distress Cardiovascular: regular rate, rhythm, no gallop, no murmur Abdomen/GI: normal bowel sounds, non tender, soft, no organomegaly Back: normal inspection, no CVA tenderness Extremities/Musculoskelatal: no calf tenderness, normal capillary refill Neurologic/Psych: alert, oriented x 3 Skin: normal color, no rash, + pertinent finding ( large open wound right hip with induration and serous drainage) Lymphatic: no adenopathy Laboratory Results Date/Time Source Procedure Growth Status 08/21/16 15:45 Blood Blood Culture Pending Received 08/21/16 15:40 Blood Blood Culture Pending Received Last 24 Hours Test 08/21/16 15:30 White Blood Count 9.05 K/uL Red Blood Count 4.29 M/uL Hemoglobin 11.0 g/dL Hematocrit 34.4 % Mean Corpuscular Volume 80.2 fL Mean Corpuscular Hemoglobin 25.6 pg Mean Corpuscular Hemoglobin Concent 32.0 g/dl RDW Standard Deviation 43.6 fL RDW Coefficient of Variation 14.9 % Platelet Count 408 K/uL Mean Platelet Volume 9.2 fL Sodium Level 142 mmol/L Potassium Level 3.8 mmol/L Chloride Level 107 mmol/L Carbon Dioxide Level 28 mmol/L Anion Gap 7.0 mmol/L Blood Urea Nitrogen 11 mg/dl Creatinine 0.68 mg/dl Est Creatinine Clear Calc Drug Dose 155.1 ml/min Estimated GFR () 114.5 Estimated GFR (Non- 98.8 BUN/Creatinine Ratio 16.1 Random Glucose 115 mg/dl Calcium Level 7.9 mg/dl Patient Name: MERLYN AUSTIN Unit Number: [id number] Dictated: 08/21/161141 Transcribed: 08/21/161417 Printed Date/Time: [~ rep prt dt]/[~ rep prt tm] [~ rep ct labl] - [~ rep ct ivnm] [facility] [place] [place] [address] Dictated: 08/21/161141 Transcribed: 08/21/161417 Printed Date/Time: [~ rep prt dt]/[~ rep prt tm] [~ rep ct labl] - [~ rep ct ivnm] CT SCAN OF THE RIGHT HIP WITH IV CONTRAST CLINICAL HISTORY: Nonhealing wound. Staph infection. COMPARISON STUDY: Radiographs of the right hip dated 06/26/2016. TECHNIQUE: Following the IV administration of 94 cc of Optiray 320, CT scan of the right hip is performed from the bony pelvis to the distal femoral shaft. Images reviewed in the axial, sagittal, coronal planes. IV contrast was administered without complication. The examination is significantly degraded by streak artifact from right hip arthroplasty. CT DOSE: 2647.94 mGy.cm FINDINGS: The skeletal structures are osteopenic. A right hip arthroplasty is in near-anatomic alignment. No periprosthetic lucency is identified. No fracture is seen. Heterotopic bone formation is present around the proximal femur. No cortical destruction is seen. The visualized right hemipelvis appears intact. There is a large wound overlying the right hip with significant surrounding soft tissue induration/phlegmonous change. Fluid is suggested within the wound cavity. This extends from the cutaneous surface to the arthroplasty itself, and there is significant surrounding phlegmonous change. An organized fluid collection containing gas is suggested posterior to the subtrochanteric femur. This measures approximately 5 x 2 x 4.5 cm. The appearance is concerning for abscess. There is diffuse fatty atrophy of the regional musculature. There is significant induration with blurring of the fat planes involving the right gluteal musculature as well as the lateral thigh musculature. This likely represents myositis. There is induration of the surrounding subcutaneous fat in the right thigh with associated dermal thickening, likely representing cellulitis. There is atherosclerotic calcification of the regional arteries. The femoral vessels appear patent. Mildly enlarged right inguinal and pelvic sidewall lymph nodes are likely on a reactive basis. IMPRESSION: 1. The examination is degraded by streak artifact from a right hip arthroplasty. 2. There is no clear evidence of osteomyelitis. No fracture is seen. 3. There is a large cutaneous defect/wound along the lateral aspect of the right hip at the level of the arthroplasty. There is overlying cellulitis, and extensive induration/phlegmonous change surrounding the wound which extends from the dermal surface to the arthroplasty itself, likely on an infectious basis. 4. A more organized fluid collection is suggested posterior to the subtrochanteric femur and likely represents abscess. 5. There is significant myositis involving the regional musculature including the gluteal and lateral thigh muscles. Dictated: 08/21/2016 11:42 AM Transcribed: 08/21/2016 2:18 PM Rey Electronically signed by: Demond Haro M.D. 08/21/2016 2:22 PM Dictated Date/Time: 08/21/2016 11:42 AM The status of this report is Signed. Draft = Not yet reviewed or approved by Radiologist. Signed = Reviewed and approved by Radiologist. <AttendingPhy>Reymundo Morrison DO</AttendingPhy> <FamilyPhy>Costa Garcia D.OStephanInt.Med.</FamilyPhy> <PrimaryPhy>Costa Garcia D.O.Int.Med.</PrimaryPhy > <UnitNumber>[id number]</UnitNumber> <VisitNumber>[id number]</VisitNumber> < PatientName>MERLYN AUSTIN Pamela</PatientName> <DateOfBirth>1950</DateOfBirth> < Location>[facility]</Location> <ServiceDate>08/21/16</ServiceDate> <MNE>ESINDI</MNE> <OrderingPhy>Reymundo Morrison D.O.</OrderingPhy> <OrderingPhyMNE>f rep ord dr tyson</ OrderingPhyMNE> <DictatingPhyMNE>f rep dict dr tyson</DictatingPhyMNE> <CCListMNE> f rep ct mne</CCListMNE> <AdmittingPhyMNE>f pt admit dr tyson</AdmittingPhyMNE> < AttendingPhyMNE>f pt attend dr tyson</AttendingPhyMNE> <ConsultingPhyMNE>f pt consult dr tyson</ConsultingPhyMNE> <FamilyPhyMNE>f pt fam dr tyson</FamilyPhyMNE> <OtherPhyMNE>f pt other dr tyson</OtherPhyMNE> < PrimaryPhyMNE>f pt prim care dr tyson</PrimaryPhyMNE> <ReferringPhyMNE>f pt referring dr tyson</ReferringPhyMNE> Assessment & Plan Right hip infection following SURJIT/re-op for infection with poly-exchange, now with new cellulitis/STI. I have added Zosyn and would continue daptomycin pending further culture results. Will follow.
[2016-08-21] MEDS ORDERED: PIPERACILL/TAZOBAC CONSULT ACTIVE PRN (17:30)
[2016-08-21] MEDS ORDERED: PIPERACILL/TAZOBAC IV 4.5 GM in DEXTROSE 5% 100ML IV ONE (17:45)
[2016-08-21] MEDS ORDERED: PIPERACILL/TAZOBAC IV 3.375 GM in DEXTROSE 5% 100ML 100 ML IV SCH (18:00)
[2016-08-21] MEDS: NORTRIPTYLINE HCL 10 MG CAP PO SCH (21:38)
[2016-08-21] MEDS: TAMSULOSIN HCL 0.4 MG CAP PO SCH (21:39)
[2016-08-21] MEDS ORDERED: TAMSULOSIN HCL 0.4 MG CAP PO SCH (22:00)
[2016-08-21] MEDS: PIPERACILL/TAZOBAC IV 4.5 GM in DEXTROSE 5% 100ML IV SCH (22:22)
[2016-08-21 23:05] VITALS: BP 100/59; PULSE 96; TEMP 37.4; O2SAT 98
[2016-08-22] MEDS: VANCOMYCIN INJ 1,500 MG in SODIUM CHLORIDE 0.9% 500ML 500 ML IV SCH ×2 (00:37→11:39)
[2016-08-22 02:50] VITALS: BP 129/76; PULSE 89; TEMP 37.1; O2SAT 96
[2016-08-22 03:05] VITALS: BP 127/78; PULSE 87; TEMP 37.1; O2SAT 100
[2016-08-22 03:20] VITALS: BP 126/83; PULSE 86; TEMP 36.9; O2SAT 99
[2016-08-22 03:35] VITALS: BP 125/79; PULSE 86; TEMP 36.7; O2SAT 98
[2016-08-22] MEDS: PIPERACILL/TAZOBAC IV 4.5 GM in DEXTROSE 5% 100ML IV SCH ×3 (05:28→21:58)
[2016-08-22 07:21] VITALS: BP 133/76; PULSE 88; TEMP 36.8; O2SAT 96
[2016-08-22] MEDS ORDERED: CHOLECALCIFEROL 1000 INTER.UNIT TAB PO SCH (08:00)
[2016-08-22] MEDS: CYANOCOBALAMIN 500 MCG TAB (VIT B-12) PO SCH (08:52)
[2016-08-22] MEDS: FINASTERIDE 5 MG TAB PO SCH (08:52)
[2016-08-22] MEDS: ALLOPURINOL 300 MG TAB PO SCH (08:52)
[2016-08-22] MEDS ORDERED: BOOST PLUS VANILLA PO ONE ×2 (10:16)
[2016-08-22] MEDS: FENTANYL 25 MCG/HR TDSY TD SCH (10:32)
--- NOTE | 2016-08-22 10:45 | ORTHOPEDIC CONSULTATION ---
DATE OF CONSULTATION: 08/22/2016 DATE OF CONSULTATION: 08/22/2016. CHIEF COMPLAINT: Right leg pain. HISTORY OF PRESENT ILLNESS: Mr. Lopez is a patient who is well known to me with an extremely extensive history which includes end-stage DJD, gout, depression and morbid obesity. He underwent hip replacement surgery on 05/08/2016 which was initially uneventful and he felt well. However, he presented approximately a month to month and half postop with a draining wound and was taken back to surgery and underwent extensive revision with placement of antibiotic beads on 06/26/2016. He was doing well but did have a recurrence of increasing leg pain and just generally not feeling well. He presented now for followup after admission. He complains of some knee pain and some thigh pain and just generally not feeling well with increased pain. Examination today the patient is in bed. He is afebrile. He is sitting comfortably. His thigh is actually soft. I can range his hip without too much discomfort. There is a large wound VAC in place laterally. His hip is located. Neurological and vascular function are intact. LABORATORY STUDIES: I have reviewed his recent laboratory studies. His CRP is 1. Sed rate is 63. Of more importance albumin is 2.6. Vitamin D was 26.[address] was 144. CT scan of the hip was reviewed. It shows some areas of fluid collection, mostly in the subtrochanteric femur. There is also myositis noted. The hip is located. There is no evidence of osteomyelitis. There is evidence of a large defect on the lateral side. IMPRESSIONS: 1. Possible recurrent infection status post hip replacement and incision and drainage for infection. 2. Morbid obesity. 3. Extreme malnutrition. 4. Poor pain control. DISCUSSION: At this point the patient's biggest issue is he is extremely malnourished. His vitamin D levels are extremely low and should be at least 50 or more. Albumin is low, transferred is low. This patient has no chance of healing this problem without an improvement in his nutritional status. I believe that he will need aggressive vitamin D and magnesium supplementation and will need protein supplementation for albumin levels. This is a must and as long as he is not septic I believe that this must be accomplished. Regarding his hip the fluid collections may represent the presence of the antibiotic beads that were present. These dissolve and create an inflammatory reaction. Some of the myositis may actually be the presence of these beads as well. Certainly at this point, a sed rate of 63, a CRP of 1, and afebrile the patient is not septic. I absolutely would not recommend any further surgery at this point until his nutritional status is improved. If his nutritional status is improved to a reasonable level and he continues to have symptoms he may then benefit from surgery with removal of these components and placement of antibiotic spacer. This will be an extremely difficult task given all of his comorbidities and the fact that he has a bony ingrowth type hip stem. This may be well or better served at a tertiary care center. This can be discussed more in the future, but for now certainly the #1 priority is to improve his nutritional status and monitor. Thank you for this consult. We will follow him along with you.
[2016-08-22 11:33] LABS: FERRITIN 100.1 ng/ml (8.0-388.0); MAGNESIUM 2.1 mg/dl (1.8-2.4); PREALBUMIN 11.8 mg/dl (20-40)
[2016-08-22] MEDS ORDERED: ZINC SULFATE 220 MG CAP PO ONE (11:46)
[2016-08-22] MEDS ORDERED: MULTIVITAMIN TAB PO ONE (12:00)
[2016-08-22] MEDS ORDERED: ASCORBIC ACID 500 MG TAB PO ONE (12:00)
[2016-08-22 13:48] LABS: CREATININE 1.1 mg/dl (0.60-1.40)
[2016-08-22 15:33] VITALS: BP 155/88; PULSE 93; TEMP 36.7; O2SAT 96
[2016-08-22] MEDS: CHECK FENTANYL PATCH PLACEMENT SCH (15:37)
[2016-08-22] MEDS: ARGININE EXTRA NUTRITION DRINK 1 BOX PO SCH (16:41)
[2016-08-22] MEDS: SODIUM CHLORIDE 0.9% IV SCH (17:55)
[2016-08-22] MEDS: DAPTOMYCIN IV SCH (17:55)
[2016-08-22] MEDS: MAGNESIUM OXIDE 400 MG TAB PO SCH (19:47)
[2016-08-22] MEDS: ASCORBIC ACID 500 MG TAB PO SCH (19:48)
[2016-08-22] MEDS ORDERED: BOOST PLUS VANILLA PO SCH ×2 (20:00)
[2016-08-22] MEDS: OXYCODONE HCL IR 5 MG TAB (IMMEDIATE RELEASE) PO PRN ×2 (21:32→22:02)
[2016-08-22] MEDS: NORTRIPTYLINE HCL 10 MG CAP PO SCH (21:59)
[2016-08-22] MEDS: TAMSULOSIN HCL 0.4 MG CAP PO SCH (22:01)
[2016-08-23 00:09] VITALS: BP 127/56; PULSE 87; TEMP 36.5; O2SAT 96
[2016-08-23] MEDS: PIPERACILL/TAZOBAC IV 4.5 GM in DEXTROSE 5% 100ML IV SCH ×3 (06:08→22:16)
[2016-08-23] MEDS: OXYCODONE HCL IR 5 MG TAB (IMMEDIATE RELEASE) PO PRN ×2 (06:09→20:31)
[2016-08-23 06:54] LABS: BASO % 0.7 %; BASO ABS # 0.05 K/uL (0-0.2); COMPLETE YES; EOS % 4.2 %; HEMATOCRIT 35.2 % (42-52); IG% 0.3 %; LYMPH % 21.1 %; LYMPH ABS # 1.44 K/uL (1.2-3.4); MEAN CELL VOLUME 80.9 fL (80-100); MEAN CORPUSCULAR HEMOGLOBIN 25.1 pg (25-34); MONO % 9.2 %; NEUT % 64.5 %; PLATELET COUNT 395 K/uL (130-400); RED BLOOD COUNT 4.35 M/uL (4.7-6.1); WHITE BLOOD COUNT 6.83 K/uL (4.8-10.8)
[2016-08-23 07:03] VITALS: BP 139/87; PULSE 86; TEMP 36.4; O2SAT 99
[2016-08-23 07:32] LABS: BUN/CREATININE RATIO 18.9 (10-20); CALCIUM 8.2 mg/dl (8.5-10.1); CREATININE 0.76 mg/dl (0.60-1.40); MAGNESIUM 2.2 mg/dl (1.8-2.4); POTASSIUM 3.5 mmol/L (3.5-5.1)
[2016-08-23] MEDS: CHECK FENTANYL PATCH PLACEMENT SCH ×3 (07:40→15:38)
[2016-08-23] MEDS: ARGININE EXTRA NUTRITION DRINK 1 BOX PO SCH ×2 (07:42→16:43)
[2016-08-23] MEDS: ZINC SULFATE 220 MG CAP PO SCH (07:42)
[2016-08-23] MEDS: CHOLECALCIFEROL 1000 INTER.UNIT TAB PO SCH (07:43)
[2016-08-23] MEDS: FINASTERIDE 5 MG TAB PO SCH (07:43)
[2016-08-23] MEDS: MAGNESIUM OXIDE 400 MG TAB PO SCH ×2 (07:43→20:32)
[2016-08-23] MEDS: CYANOCOBALAMIN 500 MCG TAB (VIT B-12) PO SCH (07:43)
[2016-08-23] MEDS: ALLOPURINOL 300 MG TAB PO SCH (07:43)
[2016-08-23] MEDS: ASCORBIC ACID 500 MG TAB PO SCH ×2 (07:43→20:33)
[2016-08-23] MEDS: MULTIVITAMIN TAB PO SCH (07:43)
[2016-08-23 07:50] LABS: CHOLESTEROL/HDL RATIO 2.6
[2016-08-23] MEDS ORDERED: ENOXAPARIN 40 MG/0.4 ML SYR SQ ONE (08:26)
--- NOTE | 2016-08-23 08:28 | Hospitalist Progress Note ---
Hospitalist Progress Note Date of Service August 22, 2016. Subjective Pt evaluation today including: conversation w/ patient, conversation w/ remediation bioanalytics consultant (orthopedics) Patient still with pain in the right hip, afebrile. He is very frustrated with the chronic infection and thought he was getting better before this worsened again recently. He was having whole body aches a few days ago before the pain really got bad from his hip down into his knee again. He is nutritionally deficient and I discussed the case with orthopedics who is not willing to perform any kind of surgery until his nutritional status is improved. Discussed the case with payroll secretary as well who made recommendations. Also overnight, his Marie catheter fell out accidentally he thinks he rolled over and it got caught on something. IV team was able to get a peripheral IV for now but he will need central access as PICC line unable to be obtained All Other Systems: Reviewed and Negative Objective Vital Signs Date Time Temp Pulse Resp B/P Pulse Ox O2 Delivery O2 Flow Rate FiO2 08/23/16 07:03 36.4 86 20 139/87 99 Room Air 08/23/16 00:09 36.5 87 20 127/56 96 Room Air 08/23/16 00:00 Room Air 08/22/16 20:00 Room Air 08/22/16 16:30 Room Air 08/22/16 15:33 36.7 93 20 155/88 96 Room Air 08/22/16 09:00 Room Air Physical Exam General Appearance: no apparent distress, + obese Eyes: normal inspection, sclerae normal ENT: hearing grossly normal Neck: trachea midline Respiratory/Chest: lungs clear, normal breath sounds, no respiratory distress, no accessory muscle use Cardiovascular: regular rate, rhythm, no edema, no murmur, + pertinent finding (right Marie catheter site with dressing in place c/d/i) Abdomen: normal bowel sounds, non tender, soft, no organomegaly (morbidly obese ) Extremities: + pertinent finding (right hip with wound vac in place with no erythema, some mild edema and positive tenderness to palpation over anterior portion of the wound VAC) Neurologic/Psychiatric: alert, normal mood/affect, oriented x 3 Skin: normal color, warm/dry, no rash Laboratory Results Last 24 Hours Test 08/22/16 10:42 08/23/16 06:34 Creatinine 1.10 mg/dl 0.76 mg/dl Est Creatinine Clear Calc Drug Dose 95.9 ml/min 138.8 ml/min Estimated GFR () 80.1 109.4 Estimated GFR (Non- 69.1 94.4 Magnesium Level 2.1 mg/dl 2.2 mg/dl Iron Level 23 mcg/dl Total Iron Binding Capacity 243 mcg/dl Transferrin 190 mg/dl Transferrin % Saturation 9 % Ferritin 100.1 ng/ml Prealbumin 11.8 mg/dl Vitamin B12 Level 727 pg/mL 25-Hydroxy Vitamin D Total 22.6 ng/ml Folate 19.16 ng/mL White Blood Count 6.83 K/uL Red Blood Count 4.35 M/uL Hemoglobin 10.9 g/dL Hematocrit 35.2 % Mean Corpuscular Volume 80.9 fL Mean Corpuscular Hemoglobin 25.1 pg Mean Corpuscular Hemoglobin Concent 31.0 g/dl Platelet Count 395 K/uL Mean Platelet Volume 9.0 fL Neutrophils (%) (Auto) 64.5 % Lymphocytes (%) (Auto) 21.1 % Monocytes (%) (Auto) 9.2 % Eosinophils (%) (Auto) 4.2 % Basophils (%) (Auto) 0.7 % Neutrophils # (Auto) 4.40 K/uL Lymphocytes # (Auto) 1.44 K/uL Monocytes # (Auto) 0.63 K/uL Eosinophils # (Auto) 0.29 K/uL Basophils # (Auto) 0.05 K/uL RDW Standard Deviation 44.8 fL RDW Coefficient of Variation 15.0 % Immature Granulocyte % (Auto) 0.3 % Immature Granulocyte # (Auto) 0.02 K/uL Sodium Level 143 mmol/L Potassium Level 3.5 mmol/L Chloride Level 108 mmol/L Carbon Dioxide Level 28 mmol/L Anion Gap 7.0 mmol/L Blood Urea Nitrogen 14 mg/dl BUN/Creatinine Ratio 18.9 Random Glucose 89 mg/dl Calcium Level 8.2 mg/dl C-Reactive Protein 8.36 mg/dl Triglycerides Level 63 mg/dl Cholesterol Level 122 mg/dl HDL Cholesterol 47 mg/dl LDL Cholesterol, Calculated 62 mg/dl VLDL Cholesterol, Calculated 13 mg/dl Cholesterol/HDL Ratio 2.6 Assessment and Plan 66 y/o M who was a direct admit on 08/21 for failure of outpt management of chronically infected right hip status post right SURJIT April 2016 followed by excision with revision and antibiotic bead placement in May 2016. R HIP CELLULITIS/ABSCESS ACUTE ON CHRONIC: Extensive and with possible abscess per CT Failed outpt management including daily IV dapto and wound vac -Appreciate ID consultation-continue daptomycin, stop vancomycin, and added Zosyn -Follow labs and markers of inflammation -Wound care consultation -With low prealbumin, vitamin D, albumin-needs significant improvement of nutritional status as per orthopedics before repeat surgery with antibiotic spacer can be performed -Started vitamin C, zinc sulfate, multivitamin, high-dose vitamin D, magnesium oxide, and nutritional supplementation as per nutrition. -We'll consult general surgery Dr. Montalvo for placement of central venous access after the holiday weekend as he lost his Marie catheter BPH: increasing flomax and monitor Depression: continue pamelor Other: Full code, although pt states he does not wish for prolonged mechanical life support Reg diet We'll start Lovenox
[2016-08-23] MEDS ORDERED: VANCOMYCIN TROUGH SCH (11:30)
[2016-08-23 15:35] VITALS: BP 133/73; PULSE 81; TEMP 36.7; O2SAT 99
[2016-08-23] MEDS: DAPTOMYCIN IV SCH (17:50)
[2016-08-23] MEDS: SODIUM CHLORIDE 0.9% IV SCH (17:50)
--- NOTE | 2016-08-23 21:58 | Hospitalist Progress Note ---
Hospitalist Progress Note Date of Service August 23, 2016. Subjective Pt evaluation today including: conversation w/ patient, conversation w/ senior clinical consultant (Ortho) Patient feeling well today except for pain in the right hip and knee. Afebrile All Other Systems: Reviewed and Negative Objective Vital Signs Date Time Temp Pulse Resp B/P Pulse Ox O2 Delivery O2 Flow Rate FiO2 08/23/16 16:30 Room Air 08/23/16 15:35 36.7 81 133/73 99 Room Air 08/23/16 08:45 Room Air 08/23/16 07:03 36.4 86 20 139/87 99 Room Air 08/23/16 00:09 36.5 87 20 127/56 96 Room Air 08/23/16 00:00 Room Air Physical Exam General Appearance: no apparent distress, + obese Eyes: normal inspection, sclerae normal (Instructions) ENT: hearing grossly normal Neck: trachea midline Respiratory/Chest: lungs clear, normal breath sounds, no respiratory distress, no accessory muscle use Cardiovascular: regular rate, rhythm, no murmur Abdomen: normal bowel sounds (law), non tender ( all all), soft (and obese) Extremities: no calf tenderness, + pertinent finding (right hip with wound VAC in place without surrounding erythema, there is quite a bit of serosanguineous drainage coming out) Neurologic/Psychiatric: alert, normal mood/affect, oriented x 3 Skin: normal color, warm/dry Laboratory Results Last 24 Hours Test 08/23/16 06:34 White Blood Count 6.83 K/uL Red Blood Count 4.35 M/uL Hemoglobin 10.9 g/dL Hematocrit 35.2 % Mean Corpuscular Volume 80.9 fL Mean Corpuscular Hemoglobin 25.1 pg Mean Corpuscular Hemoglobin Concent 31.0 g/dl Platelet Count 395 K/uL Mean Platelet Volume 9.0 fL Neutrophils (%) (Auto) 64.5 % Lymphocytes (%) (Auto) 21.1 % Monocytes (%) (Auto) 9.2 % Eosinophils (%) (Auto) 4.2 % Basophils (%) (Auto) 0.7 % Neutrophils # (Auto) 4.40 K/uL Lymphocytes # (Auto) 1.44 K/uL Monocytes # (Auto) 0.63 K/uL Eosinophils # (Auto) 0.29 K/uL Basophils # (Auto) 0.05 K/uL RDW Standard Deviation 44.8 fL RDW Coefficient of Variation 15.0 % Immature Granulocyte % (Auto) 0.3 % Immature Granulocyte # (Auto) 0.02 K/uL Sodium Level 143 mmol/L Potassium Level 3.5 mmol/L Chloride Level 108 mmol/L Carbon Dioxide Level 28 mmol/L Anion Gap 7.0 mmol/L Blood Urea Nitrogen 14 mg/dl Creatinine 0.76 mg/dl Est Creatinine Clear Calc Drug Dose 138.8 ml/min Estimated GFR () 109.4 Estimated GFR (Non- 94.4 BUN/Creatinine Ratio 18.9 Random Glucose 89 mg/dl Calcium Level 8.2 mg/dl Magnesium Level 2.2 mg/dl C-Reactive Protein 8.36 mg/dl Triglycerides Level 63 mg/dl Cholesterol Level 122 mg/dl HDL Cholesterol 47 mg/dl LDL Cholesterol, Calculated 62 mg/dl VLDL Cholesterol, Calculated 13 mg/dl Cholesterol/HDL Ratio 2.6 Assessment and Plan 66 y/o M who was a direct admit on 08/21 for failure of outpt management of chronically infected right hip status post right SURJIT April 2016 followed by excision with revision and antibiotic bead placement in May 2016. R HIP CELLULITIS/ABSCESS ACUTE ON CHRONIC: Extensive and with possible abscess per CT Failed outpt management including daily IV dapto and wound vac -Appreciate ID consultation-continue daptomycin, stop vancomycin, and added Zosyn -Follow labs and markers of inflammation -Wound care consultation -With low prealbumin, vitamin D, albumin-needs significant improvement of nutritional status as per orthopedics before repeat surgery with antibiotic spacer can be performed -Started vitamin C, zinc sulfate, multivitamin, high-dose vitamin D, magnesium oxide, and nutritional supplementation as per nutrition. -We'll consult general surgery Dr. Montalvo for placement of central venous access after the iday as he lost his Marie catheter BPH: increasing flomax and monitor Depression: continue pamelor Full code, although pt states he does not wish for prolonged mechanical life support Prophylaxis-Lovenox Disposition-to home hopefully on Wednesday or Wednesday after central venous access is acquired and will need routine follow-up at the wound clinic
[2016-08-23] MEDS: TAMSULOSIN HCL 0.4 MG CAP PO SCH (22:17)
[2016-08-23] MEDS: NORTRIPTYLINE HCL 10 MG CAP PO SCH (22:18)
[2016-08-23 23:22] VITALS: BP 132/94; PULSE 87; TEMP 36.7; O2SAT 99
[2016-08-24] MEDS: CHECK FENTANYL PATCH PLACEMENT SCH ×3 (00:32→16:00)
[2016-08-24] MEDS: PIPERACILL/TAZOBAC IV 4.5 GM in DEXTROSE 5% 100ML IV SCH ×4 (05:45→22:00)
[2016-08-24 07:01] LABS: BASO % 0.6 %; BASO ABS # 0.04 K/uL (0-0.2); COMPLETE YES; EOS % 3.6 %; HEMATOCRIT 33.5 % (42-52); IG% 0.5 %; LYMPH % 23.4 %; MEAN CELL VOLUME 79.4 fL (80-100); MEAN CORPUSCULAR HEMOGLOBIN 24.6 pg (25-34); MONO % 10.5 %; NEUT % 61.4 %; PLATELET COUNT 410 K/uL (130-400); RED BLOOD COUNT 4.22 M/uL (4.7-6.1); WHITE BLOOD COUNT 6.41 K/uL (4.8-10.8)
[2016-08-24 07:10] VITALS: BP 125/82; PULSE 81; TEMP 36.7; O2SAT 100
[2016-08-24 07:37] LABS: BUN/CREATININE RATIO 15.7 (10-20); CALCIUM 7.9 mg/dl (8.5-10.1); CREATININE 0.81 mg/dl (0.60-1.40); MAGNESIUM 2.2 mg/dl (1.8-2.4); POTASSIUM 4.1 mmol/L (3.5-5.1)
[2016-08-24] MEDS ORDERED: ENOXAPARIN 40 MG/0.4 ML SYR SQ SCH (08:00)
[2016-08-24] MEDS: ACETAMINOPHEN 325 MG TAB PO PRN (08:05)
[2016-08-24] MEDS: ALLOPURINOL 300 MG TAB PO SCH (08:05)
[2016-08-24] MEDS: ZINC SULFATE 220 MG CAP PO SCH (08:05)
[2016-08-24] MEDS: ASCORBIC ACID 500 MG TAB PO SCH ×2 (08:05→19:50)
[2016-08-24] MEDS: CYANOCOBALAMIN 500 MCG TAB (VIT B-12) PO SCH (08:05)
[2016-08-24] MEDS: FINASTERIDE 5 MG TAB PO SCH (08:05)
[2016-08-24] MEDS: MULTIVITAMIN TAB PO SCH (08:05)
[2016-08-24] MEDS: CHOLECALCIFEROL 1000 INTER.UNIT TAB PO SCH (08:05)
[2016-08-24] MEDS: MAGNESIUM OXIDE 400 MG TAB PO SCH ×2 (08:06→19:50)
[2016-08-24] MEDS: ARGININE EXTRA NUTRITION DRINK 1 BOX PO SCH ×2 (10:00→16:38)
[2016-08-24 14:59] VITALS: BP 128/63; PULSE 85; TEMP 36.7; O2SAT 100
[2016-08-24] MEDS: OXYCODONE HCL IR 5 MG TAB (IMMEDIATE RELEASE) PO PRN (16:36)
[2016-08-24] MEDS: DAPTOMYCIN IV SCH (17:46)
[2016-08-24] MEDS: SODIUM CHLORIDE 0.9% IV SCH (17:46)
--- NOTE | 2016-08-24 18:08 | Progress Note ---
Subjective Date of Service: August 24, 2016. Subjective pt has some right leg pain, 3/10 dull ache in knee and hip, knee itself is not red hot or swollen and hip has wound vac in place, otherwise marie site it clean and dry Problem List Medical Problems: (1) Postoperative wound infection of right hip Status: Acute Review of Systems Constitutional: + fatigue, + weakness, No chills, No fever Respiratory: No cough, No shortness of breath, No sputum Cardiac: + edema, No chest pain, No orthopnea Abdomen: No diarrhea, No nausea, No pain, No vomiting Musculoskeletal: + joint pain, + muscle pain, No swelling Psychiatric: No anhedonism, No depression symptoms Objective Vital Signs Date Time Temp Pulse Resp B/P Pulse Ox O2 Delivery O2 Flow Rate FiO2 08/24/16 07:10 36.7 81 18 125/82 100 Room Air 08/24/16 00:00 Room Air 08/23/16 23:22 36.7 87 20 132/94 99 Room Air 08/23/16 20:00 Room Air 08/23/16 16:30 Room Air 08/23/16 15:35 36.7 81 133/73 99 Room Air Physical Exam General Appearance: WD/WN, + mild distress Eyes: PERRL, EOMI Neck: supple, no JVD Respiratory/Chest: chest non-tender, lungs clear Cardiovascular: regular rate, rhythm, no murmur Abdomen: normal bowel sounds, non tender, soft Extremities: + pertinent finding (right knee is normal post knee replacment ) Neurologic/Psychiatric: alert, oriented x 3 Laboratory Results Last 24 Hours Test 08/24/16 06:35 White Blood Count 6.41 K/uL Red Blood Count 4.22 M/uL Hemoglobin 10.4 g/dL Hematocrit 33.5 % Mean Corpuscular Volume 79.4 fL Mean Corpuscular Hemoglobin 24.6 pg Mean Corpuscular Hemoglobin Concent 31.0 g/dl Platelet Count 410 K/uL Mean Platelet Volume 9.0 fL Neutrophils (%) (Auto) 61.4 % Lymphocytes (%) (Auto) 23.4 % Monocytes (%) (Auto) 10.5 % Eosinophils (%) (Auto) 3.6 % Basophils (%) (Auto) 0.6 % Neutrophils # (Auto) 3.94 K/uL Lymphocytes # (Auto) 1.50 K/uL Monocytes # (Auto) 0.67 K/uL Eosinophils # (Auto) 0.23 K/uL Basophils # (Auto) 0.04 K/uL RDW Standard Deviation 43.7 fL RDW Coefficient of Variation 14.9 % Immature Granulocyte % (Auto) 0.5 % Immature Granulocyte # (Auto) 0.03 K/uL Sodium Level 143 mmol/L Potassium Level 4.1 mmol/L Chloride Level 108 mmol/L Carbon Dioxide Level 28 mmol/L Anion Gap 7.0 mmol/L Blood Urea Nitrogen 13 mg/dl Creatinine 0.81 mg/dl Est Creatinine Clear Calc Drug Dose 130.2 ml/min Estimated GFR () 106.6 Estimated GFR (Non- 92.0 BUN/Creatinine Ratio 15.7 Random Glucose 81 mg/dl Calcium Level 7.9 mg/dl Magnesium Level 2.2 mg/dl Total Creatine Kinase 38 U/L Assessment and Plan 66 y/o M who was a direct admit on 08/21 for failure of outpt management of chronically infected right hip status post right SURJIT April 2016 followed by excision with revision and antibiotic bead placement in May 2016. R HIP CELLULITIS/ABSCESS ACUTE ON CHRONIC: Extensive and with possible abscess per CT Failed outpt management including daily IV dapto and wound vac -ID consultation-continue daptomycin, stop vancomycin, added Zosyn -Wound care consultation -as per orthopaedic surgery will prefer to improved nutrition before consideration of joint revision, nutrition is following. -We'll consult general surgery Dr. Montalvo for placement of central venous access as he lost his Marie catheter BPH: flomax and monitor for symptoms Depression: worsened with current situation, alexey Full code, although pt states he does not wish for prolonged mechanical life support Prophylaxis-Lovenox
[2016-08-24] MEDS: TAMSULOSIN HCL 0.4 MG CAP PO SCH (22:01)
[2016-08-24] MEDS: NORTRIPTYLINE HCL 10 MG CAP PO SCH (22:01)
[2016-08-24 23:30] VITALS: BP 156/74; PULSE 89; TEMP 36.6; O2SAT 100
[2016-08-25] MEDS: OXYCODONE HCL IR 5 MG TAB (IMMEDIATE RELEASE) PO PRN ×3 (00:27→21:31)
[2016-08-25] MEDS: CHECK FENTANYL PATCH PLACEMENT SCH ×3 (00:29→16:28)
[2016-08-25] MEDS: PIPERACILL/TAZOBAC IV 4.5 GM in DEXTROSE 5% 100ML IV SCH ×3 (05:48→21:30)
--- NOTE | 2016-08-25 06:53 | CONSULTATION REPORT ---
DATE OF CONSULTATION: 08/25/2016 SUMMARY: I saw iTmothy yesterday afternoon for a consult for possibly positioning a new Marie catheter. We placed a right subclavian Marie catheter on beginning of June this year where it was working fine. In fact, according to the nurses notes, it was infusing well, but apparently, the patient states he was trying to get out of bed and it got tangled up on the IVs and it pulled out. This is unfortunate, because it is a very difficult catheter to place, especially due to his large size. At this point, we will plan to see if we can do it tomorrow and try to position another Marie catheter to the left subclavian area. PANCHO
--- NOTE | 2016-08-25 07:24 | Hospitalist Progress Note ---
Hospitalist Progress Note Date of Service August 25, 2016. (Kayla Perez PA-C) Subjective Pt evaluation today including: conversation w/ patient, physical exam, chart review, lab review, review of studies Pain: None PO Intake: Good Voiding: no voiding problems The patient was seen and examined this morning. Pt reports doing overall well today. He denies any acute pain, fevers, chills or sweats, cp, sob, abd pain. He is anticipating Marie catheter replacement tomorrow. Pt voices concerns about the length of time he will need to be on antibiotics, since originally he was scheduled until September 03, but now with reinfection it will most likely be much longer. He is worried about having his hip taken out, and needing to be wheelchair bound for sometime prior to another surgical procedure to replace the hip. He had been seeing wound with Dr. Morrison on a regular basis for wound vac replacement. 10 point ROS was obtained and is otherwise negative. (Kayla Perez PA-C) Objective Vital Signs Date Time Temp Pulse Resp B/P Pulse Ox O2 Delivery O2 Flow Rate FiO2 08/25/16 00:20 CPAP 08/24/16 23:30 36.6 89 20 156/74 100 Room Air 08/24/16 16:46 Room Air 08/24/16 14:59 36.7 85 20 128/63 100 Room Air 08/24/16 08:00 Room Air (Kayla Perez PA-C) Physical Exam General Appearance: WD/WN, no apparent distress, + obese Eyes: PERRL, EOMI ENT: hearing grossly normal, pharynx normal Neck: supple, thyroid normal Respiratory/Chest: lungs clear, normal breath sounds, no respiratory distress, no accessory muscle use Cardiovascular: regular rate, rhythm, no murmur Abdomen: normal bowel sounds, non tender, soft, no organomegaly Extremities: non-tender, no pedal edema, no calf tenderness, + pertinent finding (Wound vac in place on left hip) Neurologic/Psychiatric: alert, normal mood/affect, oriented x 3 Skin: normal color, warm/dry (Kayla Perez PA-C) Assessment and Plan 66 y/o M who was a direct admit on 08/21 for failure of outpt management of chronically infected right hip status post right SURJIT April 2016 followed by excision with revision and antibiotic bead placement in May 2016. R hip cellulitis, acute on chronic abscess - Extensive and with possible abscess per CT - Failed outpt management including daily IV dapto and wound vac - ID consultation-continue daptomycin and Zosyn - Wound care consultation - as per orthopaedic surgery will prefer to improved nutrition before consideration of joint revision, nutrition is following. - General surgery consultation, Dr. Montalvo plans for placement of central venous access as he lost his Marie catheter tomorrow. Will make NPO after 2400 BPH: flomax and monitor for symptoms Depression: worsened with current situation, pamelor 20 mg QD DVT ppx:-Lovenox CODE STATUS: Full code, although pt states he does not wish for prolonged mechanical life support Disposition: From home, will need home health services for antibiotic regimen, discharge date unknown currently. (Kayla Perez, NELSON) PA Physician Supervision Note: I interviewed and examined the patient. Discussed with Kayla Perez PAC and agree with findings and plan as documented in the note. Any exceptions or clarifications are listed here: None This pt is doing well, wound care with Dr Morrison 08/25 with Cynthia 08/[address] Montalvo vitals stable car is regular lungs are clear abd soft and non tender R HIP CELLULITIS/ABSCESS ACUTE ON CHRONIC: IV dapto/ Zosyn and wound vac -Wound care consultation Dr. Montalvo for placement of central venous access as he lost his Marie catheter BPH: flomax symptoms improved Depression: more optimistic, pamelor Prophylaxis-Lovenox Documented By: Harrison Lewis (Harrison Lewis M.D.)
[2016-08-25 07:43] VITALS: BP 133/78; PULSE 83; TEMP 36.7; O2SAT 97
--- NOTE | 2016-08-25 08:20 | Clinical Documentation Query ---
CLINICAL DOCUMENTATION QUERY 66-y/o male with worsening right hip postoperative wound infection. Orthopedics has stated this patient as having extreme malnutrition. Prealbumin is 11.8. Progress notes state nutritional status need optimized prior to surgery. He is being treated with dietary consult, boost, and Resource arginaid extra. In your clinical opinion is this patient being managed for: ( ) Severe protein malnutrition ( xx ) Moderate protein malnutrition ( ) Other explanation of clinical findings (Please Explain) ( ) Unable to determine (Please Define) ( ) Need to Discuss ( ) Not Agree Please clarify and document your clinical opinion in the progress notes and discharge summary. Terms such as "probable", "suspected", "likely", "questionable", "possible", or "still to be ruled out" are acceptable. IF IN AGREEMENT, YOU MUST DOCUMENT ABOVE DIAGNOSTIC STATEMENT IN DAILY PROGRESS NOTES AND DISCHARGE SUMMARY. This document is not part of the patient's record. Malnutrition Characteristics (2 of 6) in Acute Illness/Injury CHARACTERISTICS MODERATE MALNUTRITION SEVERE MALNUTRITION ENERGY INTAKE <75% of estimated energyrequirement for >7 days <50% of estimated energyrequirement for >5 days WEIGHT LOSS 1-2%/1 week 5%/1 month 7.5%/3 months >1-2%/1 week >5%/1 month >7.5%/3 months BODY FAT*loss of SQ fat from the orbits,triceps, or fat overlying the ribs MILD MODERATE MUSCLE MASS*muscle wasting at the temples,clavicles, shoulders, interosseousspaces,scapula, thigh, calf MILD MODERATE FLUID ACCUMULATION*localized or generalized edemaof the extremities, vulva, scrotumweight loss may be masked byedema MILD MODERATE-SEVERE GOLF MANAGER STRENGTH N/A measurably decreased perthe device's standards Malnutrition Characteristics (2 of 6) in Chronic Illness CHARACTERISTICS MODERATE MALNUTRITION SEVERE MALNUTRITION ENERGY INTAKE <75% of estimated energyrequirement for >1 month <75% of estimated energyrequirement for >1 month WEIGHT LOSS 5%/1 month 7.5%/3 months 10%/6 months 20%/1 year > 5%/1 month >7.5%/3 months >10%/6 months >20%/1 year BODY FAT*loss of SQ fat from the orbits,triceps, or fat overlying the ribs MILD SEVERE MUSCLE MASS*muscle wasting at the temples,clavicles, shoulders, interosseousspaces,scapula, thigh, calf MILD SEVERE FLUID ACCUMULATION*localized or generalized edemaof the extremities, vulva, scrotumweight loss may be masked byedema MILD SEVERE GOLF MANAGER STRENGTH N/A measurably decreased perthe device's standards Thank You, Nader Knox RN [phone]
[2016-08-25] MEDS: CHOLECALCIFEROL 1000 INTER.UNIT TAB PO SCH (08:52)
[2016-08-25] MEDS: ACETAMINOPHEN 325 MG TAB PO PRN (08:52)
[2016-08-25] MEDS: MAGNESIUM OXIDE 400 MG TAB PO SCH ×2 (08:53→20:33)
[2016-08-25] MEDS: ALLOPURINOL 300 MG TAB PO SCH (08:53)
[2016-08-25] MEDS: CYANOCOBALAMIN 500 MCG TAB (VIT B-12) PO SCH (08:53)
[2016-08-25] MEDS: ASCORBIC ACID 500 MG TAB PO SCH ×2 (08:53→20:33)
[2016-08-25] MEDS: ZINC SULFATE 220 MG CAP PO SCH (08:54)
[2016-08-25] MEDS: FINASTERIDE 5 MG TAB PO SCH (08:54)
[2016-08-25] MEDS: MULTIVITAMIN TAB PO SCH (09:58)
[2016-08-25] MEDS: ARGININE EXTRA NUTRITION DRINK 1 BOX PO SCH ×2 (09:58→16:29)
--- NOTE | 2016-08-25 10:04 | Infectious Disease Progress Nt ---
Progress Note Date of Service August 25, 2016. Subjective Pt evaluation today including: conversation w/ patient, physical exam, chart review, lab review, review of studies, conversation w/ in home sales consultant, review of inpatient medication list Recent events reviewed. Patient now for reinsertion of PICC catheter tomorrow. Cultures from left hip have grown a sensitive E coli. Remains afebrile. No new complaints. All Other Systems: Reviewed and Negative Medications Current Inpatient Medications Medications (Trade) Dose Ordered Sig/Chris Route Start Time Stop Time Status Last Admin Dose Admin Allopurinol (Zyloprim Tab) 300 mg QAM PO 08/22/16 08:00 09/21/16 07:59 08/25/16 08:53 300 MG Cyanocobalamin (Vitamin B-12 Tab) 1,000 mcg QAM PO 08/22/16 08:00 09/21/16 07:59 08/25/16 08:53 1,000 MCG Finasteride (Proscar Tab) 5 mg QAM PO 08/22/16 08:00 09/21/16 07:59 08/25/16 08:54 5 MG Nortriptyline HCl (Pamelor Cap) 20 mg HS PO 08/21/16 22:00 09/20/16 21:59 08/24/16 22:01 20 MG Oxycodone HCl (Roxicodone Immediate Rel Tab) 15 mg Q4H PRN PO 08/21/16 14:45 09/04/16 14:44 08/25/16 00:27 15 MG Acetaminophen (Tylenol Tab) 650 mg Q4H PRN PO 08/21/16 15:15 09/20/16 15:14 08/25/16 08:52 650 MG Magnesium Hydroxide (Milk Of Magnesia Susp) 30 ml Q6H PRN PO 08/21/16 15:15 09/20/16 15:14 Ondansetron HCl (Zofran Inj) 4 mg Q6H PRN IV 08/21/16 15:15 09/20/16 15:14 Tamsulosin HCl (Flomax Cap) 0.8 mg HS PO 08/21/16 22:00 09/20/16 21:59 08/24/16 22:01 0.8 MG Heparin Sodium (Porcine) (Heparin 10 Unit/ ml 5 ml Flush) 5 ml PRN PRN FLUSH 08/21/16 17:15 09/20/16 17:14 08/21/16 20:05 5 ML Piperacillin Sod/ Tazobactam Sod 1 ea 1 ea UD PRN N/A 08/21/16 17:30 09/20/16 17:29 Piperacillin Sod/ Tazobactam Sod/ Dextrose (Zosyn Iv/D5 100ml) 120 ml @ 30 mls/hr Q8H IV 08/21/16 22:00 08/31/16 21:59 08/25/16 05:48 30 MLS/HR Cholecalciferol (Vitamin D Tab) 1,000 inter.unit QAM PO 08/23/16 08:00 09/22/16 07:59 08/25/16 08:52 1,000 INTER.UNIT Magnesium Oxide (Mag-Ox Tab) 400 mg BID PO 08/22/16 20:00 09/21/16 19:59 08/25/16 08:53 400 MG Fentanyl (Duragesic Patch) 25 mcg Q72H TD 08/22/16 10:30 09/05/16 10:29 08/22/16 10:32 25 MCG Miscellaneous (Fentanyl Patch Remove & Waste) 1 ea Q3D N/A 08/25/16 10:29 09/24/16 10:28 Miscellaneous Information (Check Fentanyl Patch Placement) 1 ea QS N/A 08/22/16 16:00 09/21/16 15:59 08/25/16 08:51 1 EA Enteral Nutritional Formula (Arginaid Extra) 1 box [id number] PO 08/22/16 17:00 09/21/16 16:59 08/24/16 16:38 1 BOX Zinc Sulfate (Zinc Sulfate Cap) 220 mg QAM PO 08/23/16 08:00 09/02/16 07:59 08/25/16 08:54 220 MG Ascorbic Acid (Vitamin C Tab) 500 mg BID PO 08/22/16 20:00 09/21/16 19:59 08/25/16 08:53 500 MG Multivitamins 1 tab 1 tab QAM PO 08/23/16 08:00 09/22/16 07:59 08/24/16 08:05 1 TAB Daptomycin/Sodium Chloride (Cubicin IV/Nss 50ml) 68.5 ml @ 120 mls/hr DAILY@1800 IV 08/22/16 18:00 10/03/16 17:59 08/24/16 17:46 120 MLS/HR Enoxaparin Sodium (Lovenox Inj) 40 mg DAILY SQ 08/24/16 08:00 09/23/16 07:59 Future Hold 08/24/16 08:06 40 MG Objective Vital Signs Date Time Temp Pulse Resp B/P Pulse Ox O2 Delivery O2 Flow Rate FiO2 08/25/16 07:43 36.7 83 18 133/78 97 Room Air 08/25/16 00:20 CPAP 08/24/16 23:30 36.6 89 20 156/74 100 Room Air 08/24/16 16:46 Room Air 08/24/16 14:59 36.7 85 20 128/63 100 Room Air Physical Exam General Appearance: WD/WN, no apparent distress Eyes: normal inspection, EOMI, sclerae normal ENT: normal ENT inspection, pharynx normal Neck: supple, no adenopathy, trachea midline Respiratory/Chest: lungs clear, normal breath sounds, no respiratory distress Cardiovascular: regular rate, rhythm, no gallop, no murmur Abdomen: normal bowel sounds, non tender, soft, no organomegaly Extremities: non-tender, + pertinent finding (Wound VAC in place right hip) Neurologic/Psychiatric: alert, oriented x 3 Skin: normal color, no rash Lymphatic: no adenopathy Laboratory Results RUN DATE: 08/23/16 [facility] LAB PAGE 1 RUN TIME: 444 Specimen Inquiry PATIENT: MERLYN AUSTIN LOC: C.WOUND U # : [id number] AGE/SX: 66/M ROOM: REG : 08/21/[address]: Reymundo Morrison DO : 1950 BED: DIS : STATUS: REG RCR TLOC: SPEC #: [id number] CESIA: 08/21/16-0 STATUS: COMP REQ #: [id number] RECD: 08/21/16-[address]: Reymundo Morrison DO SOURCE: ULCER ENTR: 08/21/16-[address]: Costa Garcia, D.O.Int.Med. SPDESC: BARRON, R ORDERED: SURF WND CU/GREYSON COMMENTS: Has Specimen Been Obtained/Collected? Y Procedure Result Verified Site GRAM STAIN Final 08/22/16-920 RESULT FEW WBCs SEEN RARE GRAM NEGATIVE BACILLI SURFACE WOUND CULTURE Final 08/23/16-153 Organism 1 ESCHERICHIA COLI QUANITY FEW SENS SENSITIVITY TO FOLLOW 1. ESCHERICHIA COLI Target Route Dose RX AB Cost M.I.C. IQ ------ ----- ------ -- ------ -------- - ------ TRIMET/SULFA S <=2/38 AMPICILLIN S <=8 AMPICILLIN/SUL S <=8/4 CEFAZOLIN S <=8 CEFOTAXIME S <=2 CEFTRIAXONE S <=1 CEFEPIME S <=4 CEFUROXIME S <=4 IMIPENEM S <=1 GENTAMICIN S <=4 TOBRAMYCIN S <=4 AMIKACIN S <=16 CIPROFLOXACIN S <=1 LEVOFLOXACIN S <=2 ERTAPENEM S <=1 PIP/TAZO S <=16 S = SENSITIVE I = INTERMEDIATE R = RESISTANT END OF REPORT Assessment and Plan Right hip infection following SURJIT/re-op for infection with poly-exchange, now with new cellulitis/STI. Cultures growing E coli. I will continue on daptomycin and Zosyn for now, will adjust once again catheter has been placed.
[2016-08-25] MEDS: FENTANYL 25 MCG/HR TDSY TD SCH (10:12)
[2016-08-25] MEDS ORDERED: FENTANYL PATCH REMOVE & WASTE SCH (10:29)
--- NOTE | 2016-08-25 13:57 | Anesthesiology Progress Note ---
Anesthesia Progress Note Date of Service August 25, 2016. Progress Notes The patient is a 66 y/o male scheduled for Marie catheter placement. He had one placed uneventfully one month ago but it was accidentally pulled out. He is receiving IV abx for postop wound infection of R hip. PMH includes SABRINA on CPAP, HTN, hx DVT, osteoarthritis, anemia, and morbid obesity. The patient has no problems with anesthesia. Labs are significant for hgb 10.4. On exam he has a MP 2 airway with good extension. Teeth are intact. Lungs are clear and heart is RRR. He is an ASA 3. He was consented for MAC sedation. He was counseled to remain NPO after midnight except for sips of water with pills.
[2016-08-25 15:54] VITALS: BP_SYST 149; BP_SYST 168; BP_DIAS 69; BP_DIAS 90; PULSE 65; TEMP 36.4; O2SAT 91
--- NOTE | 2016-08-25 16:59 | PROGRESS NOTE ---
DATE: 08/25/2016 SUBJECTIVE: The patient is seen today for followup evaluation of a postoperative wound, nonhealing to the right hip with underlying cellulitis. The patient states he no longer has any pain in the wound area as before over the past 3 days. The patient denies any fevers, chills or night sweats. The patient denies any other systemic complaints at this time. OBJECTIVE: The patient's vital signs were reviewed and found to be unremarkable. The patient is afebrile. The wound site today measures approximately the same as 4 days ago 22 x 6.5 x 4.5 cm. The area of induration with tenderness is no longer present in the superior border of the site. There is no erythema noted. There is no increased drainage, granulation tissue is noted throughout the wound surface. ASSESSMENT: Postoperative wound, nonhealing right hip with improving and resolving cellulitis. PLAN: At this time, no debridement is indicated. Wound VAC therapy will be continued as before with black foam, Syeda at the base, 150 mm of negative pressure. Wound VAC changed 3 times weekly. The patient will be monitored and followed in the outpatient basis as before on a weekly basis.
[2016-08-25] MEDS: DAPTOMYCIN IV SCH (18:28)
[2016-08-25] MEDS: SODIUM CHLORIDE 0.9% IV SCH (18:28)
[2016-08-25] MEDS: TAMSULOSIN HCL 0.4 MG CAP PO SCH (21:29)
[2016-08-25] MEDS: NORTRIPTYLINE HCL 10 MG CAP PO SCH (21:30)
[2016-08-26] VITALS (7 sets, daily range): BP systolic 135–180; BP diastolic 72–89; PULSE 85–91; TEMP 36.3–36.9; O2SAT 91–99
[2016-08-26] MEDS: CHECK FENTANYL PATCH PLACEMENT SCH ×3 (00:23→15:22)
--- NOTE | 2016-08-26 04:43 | Clinical Documentation Query ---
CLINICAL DOCUMENTATION QUERY 66-y/o male with worsening right hip postoperative wound infection. Orthopedics has stated this patient as having extreme malnutrition. Prealbumin is 11.8. Progress notes state nutritional status need optimized prior to surgery. He is being treated with dietary consult, boost, and Resource arginaid extra. In your clinical opinion is this patient being managed for: ( ) Severe protein malnutrition ( X ) Moderate protein malnutrition ( ) Other explanation of clinical findings (Please Explain) ( ) Unable to determine (Please Define) ( ) Need to Discuss ( ) Not Agree Please clarify and document your clinical opinion in the progress notes and discharge summary. Terms such as "probable", "suspected", "likely", "questionable", "possible", or "still to be ruled out" are acceptable. IF IN AGREEMENT, YOU MUST DOCUMENT ABOVE DIAGNOSTIC STATEMENT IN DAILY PROGRESS NOTES AND DISCHARGE SUMMARY. This document is not part of the patient's record. Malnutrition Characteristics (2 of 6) in Acute Illness/Injury CHARACTERISTICS MODERATE MALNUTRITION SEVERE MALNUTRITION ENERGY INTAKE <75% of estimated energyrequirement for >7 days <50% of estimated energyrequirement for >5 days WEIGHT LOSS 1-2%/1 week 5%/1 month 7.5%/3 months >1-2%/1 week >5%/1 month >7.5%/3 months BODY FAT*loss of SQ fat from the orbits,triceps, or fat overlying the ribs MILD MODERATE MUSCLE MASS*muscle wasting at the temples,clavicles, shoulders, interosseousspaces,scapula, thigh, calf MILD MODERATE FLUID ACCUMULATION*localized or generalized edemaof the extremities, vulva, scrotumweight loss may be masked byedema MILD MODERATE-SEVERE SENIOR UI DESIGNER STRENGTH N/A measurably decreased perthe device's standards Malnutrition Characteristics (2 of 6) in Chronic Illness CHARACTERISTICS MODERATE MALNUTRITION SEVERE MALNUTRITION ENERGY INTAKE <75% of estimated energyrequirement for >1 month <75% of estimated energyrequirement for >1 month WEIGHT LOSS 5%/1 month 7.5%/3 months 10%/6 months 20%/1 year > 5%/1 month >7.5%/3 months >10%/6 months >20%/1 year BODY FAT*loss of SQ fat from the orbits,triceps, or fat overlying the ribs MILD SEVERE MUSCLE MASS*muscle wasting at the temples,clavicles, shoulders, interosseousspaces,scapula, thigh, calf MILD SEVERE FLUID ACCUMULATION*localized or generalized edemaof the extremities, vulva, scrotumweight loss may be masked byedema MILD SEVERE SENIOR UI DESIGNER STRENGTH N/A measurably decreased perthe device's standards Thank You, Nader Knox RN [phone]
[2016-08-26] MEDS: PIPERACILL/TAZOBAC IV 4.5 GM in DEXTROSE 5% 100ML IV SCH ×2 (05:40→14:30)
[2016-08-26] MEDS: MAGNESIUM OXIDE 400 MG TAB PO SCH (07:44)
[2016-08-26] MEDS: CYANOCOBALAMIN 500 MCG TAB (VIT B-12) PO SCH (07:44)
[2016-08-26] MEDS: FINASTERIDE 5 MG TAB PO SCH (07:44)
[2016-08-26] MEDS: ASCORBIC ACID 500 MG TAB PO SCH (07:44)
[2016-08-26] MEDS: ZINC SULFATE 220 MG CAP PO SCH (07:44)
[2016-08-26] MEDS: CHOLECALCIFEROL 1000 INTER.UNIT TAB PO SCH (07:44)
[2016-08-26] MEDS: MULTIVITAMIN TAB PO SCH (07:44)
[2016-08-26] MEDS: ALLOPURINOL 300 MG TAB PO SCH (07:44)
[2016-08-26] MEDS: ARGININE EXTRA NUTRITION DRINK 1 BOX PO SCH (07:45)
[2016-08-26 08:12] LABS: HEMATOCRIT 37.6 % (42-52); MEAN CELL VOLUME 79.3 fL (80-100); MEAN CORPUSCULAR HEMOGLOBIN 24.3 pg (25-34); MEAN CORPUSCULAR HGB CONC 30.6 g/dl (32-36); MEAN PLATELET VOLUME 8.7 fL (7.4-10.4); PLATELET COUNT 446 K/uL (130-400); RED BLOOD COUNT 4.74 M/uL (4.7-6.1); WHITE BLOOD COUNT 7.05 K/uL (4.8-10.8)
--- NOTE | 2016-08-26 08:42 | History & Physical Bridge Note ---
H&P Re-Evaluation Bridge Note: I have examined the patient, reviewed the History & Physical and in the interval since the performance of the History & Physical I have noted the following changes of clinical significance: No changes noted will proceed with Marie placement today
[2016-08-26] MEDS ORDERED: LACTATED RINGER'S 1000ML 1,000 ML IV PRN (12:14)
[2016-08-26] MEDS ORDERED: FENTANYL CITRATE INJ 50 MCG/1 ML 2 ML VIAL IV PRN (12:15)
[2016-08-26] MEDS ORDERED: ONDANSETRON INJ 2 MG/ML 2 ML VIAL IV PRN (12:15)
[2016-08-26] MEDS ORDERED: HEPARIN SOD (PORCINE) 5000 UNIT/ML 1 ML VIAL ONE (12:18)
[2016-08-26] MEDS ORDERED: HEPARIN SOD (PORCINE) 1000 UNIT/ML 10 ML VIAL ONE (12:18)
[2016-08-26] MEDS ORDERED: LIDOCAINE HCL 1% 20 ML VIAL ONE (12:18)
[2016-08-26] MEDS ORDERED: CONRAY 60% 50 ML VIAL ONE (12:18)
--- NOTE | 2016-08-26 13:24 | [facility] Post Operative Brief Note ---
Immediate Operative Summary Operative Date August 26, 2016. Pre-Operative Diagnosis Need for IV access for antibiotic therapy. Post-Operative Diagnosis Same as preop. Procedure(s) Performed left subclavian Marie cath single lumen inserted Surgeon Dr. Montalvo Professional Driver Surgeon(s) None Estimated Blood Loss 5cc Findings as preop Specimens None. Anesthesia 1%xyl(8cc) and iv sedation
--- NOTE | 2016-08-26 13:26 | Discharge Instructions ---
Discharge Instructions Date of Service August 26, 2016. Admission Reason for Admission: Lower Extremity Cellulitis Discharge Discharge Diagnosis / Problem: Chronically infected right hip status post right SURJIT Discharge Goals Goal(s): Decrease discomfort, Improve function, Increase independence, Improve disease control Activity Recommendations Activity Limitations: resume your previous activity Lifting Limitations: no more than 10 pounds Exercise/Sports Limitations: gradually increase as tolerated Shower/Bathe: no limitations Driving or Machine Use: no limitations (Do not drive if taking oxycodone for pain) . Instructions / Follow-Up Instructions / Follow-Up You were admitted to [facility] with lower extremity cellulitis and chronically infected R hip s/p right total hip arthroplasty. During your stay here you were treated with intravenous antibiotics including daptomycin and zosyn. Infectious disease determined that you should continue the antibiotic regimen of daptomycin. Continue daily protein supplement to help your nutritional status. Eat fresh fruits and vegetables and limit the amount of bad carbohydrates like flour and sugar. Your nutritional status will need to improve prior to any surgical revision performed by orthopedics. Continue taking all other medication as prescribed Follow up with wound care, Dr. Morrison as scheduled within the next week Follow up with infectious disease within the next 1-2 weeks. Follow up with Dr. Oconnor within 2-4 weeks. Current Hospital Diet Patient's current hospital diet: Regular Diet Discharge Diet Recommended Diet: Regular Diet Procedures Procedures Performed: 08/26/16: Marie Catheter placement Pending Studies Studies pending at discharge: no Laboratory Results Lipid Panel Test 08/23/16 06:34 Range/Units Triglycerides Level 63 0-150 mg/dl Cholesterol Level 122 0-200 mg/dl HDL Cholesterol 47 mg/dl Cholesterol/HDL Ratio 2.6 LDL Cholesterol, Calculated 62 mg/dl Medical Emergencies . Who to Call and When: Medical Emergencies: If at any time you feel your situation is an emergency, please call 911 immediately. . Non-Emergent Contact Non-Emergency issues call your: Primary Care Provider Call Non-Emergent contact if: you have a fever, temperature is above 100.5, your pain is not controlled, your pain is worsening, your pain is unusual for you, your pain is concerning you, you have any medication questions . Past History Medical & Surgical History: (1) Post op infection (2) Right Hip Wound Drainage . "Provider Documentation" section prepared by Hilda Perez. . VTE Core Measure Inpt VTE Proph given/why not?: Enoxaparin (Lovenox)SQ, T.E.Lynn. Андрей, SCD's
--- NOTE | 2016-08-26 13:35 | Anesthesiology Progress Note ---
Anesthesia Post Op Note Date & Time August 26, 2016 at 13:34 Vital Signs Pain Intensity: 0 Vital Signs Past 12 Hours Date Time Temp Pulse Resp B/P Pulse Ox O2 Delivery O2 Flow Rate FiO2 08/26/16 13:30 86 18 159/82 97 Room Air 08/26/16 13:21 36.2 93 16 159/77 96 Room Air 08/26/16 08:00 Room Air 08/26/16 07:38 36.3 85 18 143/82 98 Room Air Notes Mental Status: alert / awake / arousable, participated in evaluation Pt Amnestic to Procedure: No (recall as expected) Nausea / Vomiting: adequately controlled Pain: adequately controlled Airway Patency, RR, SpO2: stable & adequate BP & HR: stable & adequate Hydration State: stable & adequate Anesthetic Complications: no major complications apparent Pt doing well.
--- NOTE | 2016-08-26 13:41 | Discharge Summary ---
Discharge Summary Date of Service August 26, 2016. 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 Problems/Secondary Diagnoses: Moderate protein malnutrition, morbid obesity, BPH, depression, R hip TKA, cellulitis Immunizations: Have You Had Influenza Vaccine: Yes History of Tetanus Vaccine?: No History of Pneumococcal: No History of Hepatitis B Vaccine: No Procedures: Marie Catheter placement 08/26/16 CXR 08/26/16 Consultations: Orthopedic Wound Infectious Disease (Kayla Perez PA-C) Medication Reconciliation New Medications: Ciprofloxacin Hcl (Cipro) 500 Mg Tab 1 TAB PO BID for 14 Days, #28 TAB Continued Medications: Acetaminophen (Tylenol) 500 Mg Tab 1000 MG PO PRN for 30 Days, TAB Allopurinol (Zyloprim) 300 Mg Tab 300 MG PO QAM, TAB Celecoxib (CeleBREX) 200 Mg Cap 200 MG PO BID PRN for RN, #60 CAP Cholecalciferol (Vitamin D3) 2,000 Unit Cap 1 CAP PO QAM Cholecalciferol (Vitamin D3) 2,000 Unit Tab 1 TAB PO DAILY for 30 Days, #30 TAB 5 Refills Cyanocobalamin (Vitamin B-12) 500 Mcg Tab 1000 MCG PO QAM, #30 TAB 5 Refills Daptomycin (Daptomycin) 500 Mg Inj 927 MG IV Q24H for 34 Days, #14 DOSE (This prescription has been renewed) Finasteride (Proscar) 5 Mg Tab 5 MG PO QAM, TAB Nortriptyline (Pamelor) 10 Mg Cap 20 MG PO HS, CAP Oxycodone Ir (Roxicodone Ir) 5 Mg Tab 5-10 MG PO Q4H, #60 TAB Tamsulosin HCl (Tamsulosin HCl) 0.4 Mg Cap 1 CAP PO HS Discharge Exam The patient was seen and examined this morning. Pt reports doing well as he was waiting for the Marie catheter replacement. He denies having any acute pain currently. He slept well overnight. Pt is anticipating discharge after surgical procedure and after ID determines antibiotic regimen. Review of Systems: Constitutional: No fever, No chills, No sweats Eyes: No redness, No diplopia ENT: No sore throat, No trouble swallowing Respiratory: No cough, No shortness of breath, No dyspnea on exertion Cardiovascular: No chest pain, No palpitations Abdomen: No pain, No nausea, No vomiting, No diarrhea, No constipation Musculoskeletal: + swelling (R lower extremity. + bilateral feet but right worse than left), No joint pain, No calf pain Genitourinary - Male: No hematuria, No dysuria Neurologic: No memory loss, No numbness/tingling Endocrine: No fatigue Integumentary: No rash, No itch Physical Exam: General Appearance: WD/WN, no apparent distress, + obese (morbid) Eyes: PERRL, EOMI ENT: hearing grossly normal, pharynx normal Neck: supple, no JVD Respiratory/Chest: lungs clear, normal breath sounds, no respiratory distress, no accessory muscle use Cardiovascular: regular rate, rhythm, no murmur, normal peripheral pulses Abdomen / GI: normal bowel sounds, non tender, soft, no organomegaly Extremities: no calf tenderness, + pedal edema (1+ nonpitting in BLE, right is worse than left. + Wound vac in place on the R hip. ) Neurologic/Psychiatric: no motor/sensory deficits, alert, oriented x 3 Skin: normal color, warm/dry, no rash (Kayla Perez, NELSON) Hospital Course H&P per Fabienne Bronson MD. History of Present Illness Source: patient 66 y/o M who was sent here from [facility] by Dr. Morrison for worsening cellulitis. Pt had a R hip replacement with Dr. Oconnor on 05/08/16. There were no issues for about the first month, but then while pt was on a cruise he started to have more intense pain. Follow-up appts revealed an infection in the hip hardware. He underwent a surgical revision with abx bead placement on 06/26/16 and has been on IV dapto QD since that time with a wound vac. Dr. Morrison states that things were healing quite well. Unfortunately, pt had return of knee pain one week ago. He felt it was similar to the pain he had prior to his hip replacement. He has increase in swelling, although the incision site itself has continued to look improved otherwise. No redness noted, however very TTP. This continued to get worse despite ongoing [facility] interventions. Dr. Morrison sent pt for a CT hip today that revealed extensive cellulitis and possible abscess, so pt was referred for direct admission. Pt states he feels fine otherwise. Pt denies fever, SOB, abd pain, n/v/c/d. ROS as noted above, otherwise neg. Pt notes increased urinary retention and dribbling over the last several weeks. Wakes frequently to urinate at night. PCP did a UA yesterday that was neg. Pt also notes an episode of L shoulder pain about 1 week ago. No chest pain. He took 5 baby aspirin without relief. He then took coumadin tablet from an old prescription. This pain has not returned. There were no associated sx with this and no prior hx of same. Physical Exam Vital Signs Date Time Temp Pulse Resp B/P Pulse Ox O2 Delivery O2 Flow Rate FiO2 08/21/16 14:31 37.0 94 20 162/87 98 Room Air General Appearance: no apparent distress, + obese Head: normocephalic, atraumatic Respiratory/Chest: normal breath sounds, no respiratory distress Cardiovascular: regular rate, rhythm, normal peripheral pulses Abdomen/GI: non tender, soft Extremities/Musculoskelatal: no calf tenderness, no pedal edema Neurologic/Psych: alert, normal mood/affect, oriented x 3 Skin: warm/dry, + pertinent finding (Bandage is clean, dry, and intact. Area of hardness/swelling just superior to bandage, no redness or swelling noted) Hospital Course: 66 y/o M who was a direct admit on 08/21 for failure of outpt management of chronically infected right hip status post right SURJIT April 2016 followed by excision with revision and antibiotic bead placement in May 2016. R hip cellulitis, acute on chronic abscess - Extensive and with possible abscess per CT - Failed outpt management including daily IV dapto and wound vac - ID consultation-continue daptomycin and Zosyn - plan to continue daptomycin and cipro 500 mg BID x 14 days. - Wound care consulted- appreciate recs. - as per orthopaedic surgery will prefer to improved nutrition before consideration of joint revision, nutrition is following. - General surgery consultation, Dr. Montalvo placed Marie catheter on 08/26 as it dislodged during this inpatient stay. Moderate protein calorie malnutrition - Nutrition on board, continue with daily protein supplement. - Pt will need to have better nutritional status prior to any orthopedic procedure in the future. BPH: flomax and monitor for symptoms Depression: worsened with current situation, pamelor 20 mg QD - pts mood improved with thoughts of discharge today. DVT ppx:-Lovenox CODE STATUS: Full code, although pt states he does not wish for prolonged mechanical life support Disposition: From home, will need home health services for antibiotic regimen, discharge today. Total Time Spent: Greater than 30 minutes This includes examination of the patient, discharge planning, medication reconciliation, and communication with other providers. (Kayla Perez PA-C) OPAL Physician Supervision Note: I interviewed and examined the patient. Discussed with Hilda Perez PAC and agree with findings and plan as documented in the note. Any exceptions or clarifications are listed here: None this pt is recovered from marie, wants to go home, ID decided on oral cipro vitals stable car is regular lungs are clear home with wound vac, daptomycin and cipro. follow with wound care and ID Documented By: aHrrison Lewis (Harrison Lewis M.D.) Discharge Instructions Please refer to the electronic Patient Visit Report (Discharge Instructions) for additional information. (Kayla Perez PA-C) Follow-Up Follow up with your Primary Care Provider within 1 week. Follow up with wound care/infusion center for antibiotics as already scheduled within 1 week. (Kayla Perez PA-C) Additional Copies To Costa Garcia D.O.Int.Med.
--- NOTE | 2016-08-26 13:43 | Hospitalist Progress Note ---
Hospitalist Progress Note Date of Service August 26, 2016. Subjective Pt evaluation today including: conversation w/ patient, physical exam, chart review, lab review, review of studies The patient was seen and examined this morning. Pt reports doing well as he was waiting for the Marie catheter replacement. He denies having any acute pain currently. He slept well overnight. Pt is anticipating discharge after surgical procedure and after ID determines antibiotic regimen. Review of Systems: Constitutional: No chills, No fever, No sweats Eyes: No diplopia, No redness ENT: No sore throat, No trouble swallowing Respiratory: No cough, No dyspnea on exertion, No shortness of breath Cardiovascular: No chest pain, No palpitations Abdomen: No constipation, No diarrhea, No nausea, No pain, No vomiting Musculoskeletal: + swelling (R lower extremity. + bilateral feet but right worse than left), No calf pain, No joint pain Genitourinary - Male: No dysuria, No hematuria Neurologic: No memory loss, No numbness/tingling Endocrine: No fatigue Integumentary: No itch, No rash Physical Exam: General Appearance: WD/WN, no apparent distress, + obese (morbid) Eyes: PERRL, EOMI ENT: hearing grossly normal, pharynx normal Neck: supple, no JVD Respiratory/Chest: lungs clear, normal breath sounds, no respiratory distress, no accessory muscle use Cardiovascular: regular rate, rhythm, no murmur, normal peripheral pulses Abdomen / GI: normal bowel sounds, non tender, soft, no organomegaly Extremities: no calf tenderness, + pedal edema (1+ nonpitting in BLE, right is worse than left. + Wound vac in place on the R hip. ) Neurologic/Psychiatric: no motor/sensory deficits, alert, oriented x 3 Skin: normal color, warm/dry, no rash Objective Vital Signs Date Time Temp Pulse Resp B/P Pulse Ox O2 Delivery O2 Flow Rate FiO2 08/26/16 08:00 Room Air 08/26/16 07:38 36.3 85 18 143/82 98 Room Air 08/26/16 00:21 36.7 91 16 135/72 96 CPAP 08/26/16 00:00 91 CPAP 08/25/16 16:33 Room Air 08/25/16 15:54 36.4 65 20 168/69 91 149/90 Laboratory Results Last 24 Hours Test 08/26/16 07:57 White Blood Count 7.05 K/uL Red Blood Count 4.74 M/uL Hemoglobin 11.5 g/dL Hematocrit 37.6 % Mean Corpuscular Volume 79.3 fL Mean Corpuscular Hemoglobin 24.3 pg Mean Corpuscular Hemoglobin Concent 30.6 g/dl RDW Standard Deviation 43.3 fL RDW Coefficient of Variation 14.8 % Platelet Count 446 K/uL Mean Platelet Volume 8.7 fL Assessment and Plan 66 y/o M who was a direct admit on 08/21 for failure of outpt management of chronically infected right hip status post right SURJIT April 2016 followed by excision with revision and antibiotic bead placement in May 2016. R hip cellulitis, acute on chronic abscess - Extensive and with possible abscess per CT - Failed outpt management including daily IV dapto and wound vac - ID consultation-continue daptomycin and Zosyn - plan to continue another antibiotic per Dr. Purcell - will need scripts for home health services and [facility] - Wound care consulted- appreciate recs. - as per orthopaedic surgery will prefer to improved nutrition before consideration of joint revision, nutrition is following. - General surgery consultation, Dr. Montalvo placed Marie catheter on 08/26 as it dislodged during this inpatient stay. Moderate protein calorie malnutrition - Nutrition on board, continue with daily protein supplement. - Pt will need to have better nutritional status prior to any orthopedic procedure in the future. BPH: flomax and monitor for symptoms Depression: worsened with current situation, pamelor 20 mg QD - pts mood improved with thoughts of discharge today. DVT ppx:-Lovenox CODE STATUS: Full code, although pt states he does not wish for prolonged mechanical life support Disposition: From home, will need home health services for antibiotic regimen, discharge hopefully later today
--- NOTE | 2016-08-26 14:00 | DIAGNOSTIC IMAGING REPORT ---
CHEST ONE VIEW PORTABLE HISTORY: central line placement COMPARISON: Chest 06/28/2016. FINDINGS: Left subclavian central venous catheter. The tip is difficult to visualize but likely resides within the SVC. No pneumothorax. The heart is mildly enlarged. No pleural effusions. Mild perihilar interstitial thickening, unchanged. This could represent developing congestive change. No focal lung consolidations. IMPRESSION: Interval placement of a left subclavian central venous catheter. The tip is difficult to visualize but likely resides within the SVC. No pneumothorax. Electronically signed by: Finesse Lowe M.D. 08/26/2016 1:58 PM Dictated Date/Time: 08/26/2016 1:54 PM
[2016-08-26] MEDS ORDERED: NURSING VERBAL MED ORDER ONE (14:45)
--- NOTE | 2016-08-26 15:05 | OPERATIVE REPORT ---
DATE OF OPERATION: 08/26/2016 PREOPERATIVE DIAGNOSES: Infected right hip, need for long-term antibiotic therapy. Status post iatrogenic removal of the right subclavian Marie catheter that was put in approximately 1 month or so ago. POSTOPERATIVE DIAGNOSIS: Same. PROCEDURE: Insertion of lumen left subclavian Marie catheter. SURGEON: Dr. Montalvo. OPERATION AND FINDINGS: SUMMARY: The patient was brought into the operating room theater. We used extra arm boards to position the patient on the table. I did not put a roll underneath his shoulders. She was certainly quite obese. We basically rotated his head to his right, prepped the neck and upper chest with Betadine solution and properly draped. Systemic antibiotics were given. We placed the patient in low Trendelenburg position. We used 1% Xylocaine without epinephrine, a total of 8 mL first to use some local underneath the clavicle which was quite large. We attempted first few passes and were unsuccessful, then we were able to get the subclavian vein without any difficulty. Fluoroscopically guidewire tunneled in a little bit and then stopped. Therefore, we reimaged the system, we pulled it back and then we were able to place the guidewire in superior vena cava right atrial area. At this point, we then made another counter incision about 3 inches below that so that we would insert the Marie catheter through that and leave the Dacron bolster along that side. We measured the Marie catheter just probably from that area at about 30 cm or so, positioned what appeared to be at least on the surface of the chest and the right atrial area. We then enlarged the guidewire incision a little but that we placed a tunneler to withdraw the catheter from the lower chest incision through the neck incision. We then placed the dilator and the peel away sheath and were able to place the catheter what appeared to be in superior vena cava right atrial area. We then reimaged the system, seemed like it was held up a little bit underneath the skin in the subclavian area but then we advanced it by enlarging the incision and appeared to be more adequately in the right ventricle. At this point, we aspirated and flushed easily. We then sutured the exit wound on the catheter on the anterior chest wall with 2-0 silk suture x2. The incision in the subclavicular area was closed with 2-0 Dexon and Steri-Strips applied. Prior to leaving the room we aspirated and flushed easily. Dressing was applied, Op-Site on both of them and extra piece of tape was used to secure the catheter proximal to the shut-off valve on the chest wall. The procedure was tolerated well, 5 mL blood loss. I attest to the content of the Intraoperative Record and any orders documented therein. Any exceptio ns are noted below.
[2016-08-26] MEDS: SODIUM CHLORIDE 0.9% IV SCH (15:22)
[2016-08-26] MEDS: DAPTOMYCIN IV SCH (15:22)
[2016-08-26] MEDS ORDERED: CEFTRIAXONE SOD INJ 1 GM in DEXTROSE 5% ADD-VANTAGE 50ML 50 ML IV STA (15:46)
[2016-08-26] MEDS ORDERED: CIPR-255 PO (15:47)
[2016-08-26] MEDS ORDERED: DAPT500I IV (15:49)
--- NOTE | 2016-08-26 17:13 | Infectious Disease Progress Nt ---
Progress Note Date of Service August 26, 2016. Subjective Pt evaluation today including: conversation w/ patient, physical exam, chart review, lab review, review of studies, conversation w/ income tax consultant, review of inpatient medication list Patient offers no new complaints today. Remains afebrile. Pain in hip controlled. Continues with wound VAC drainage. Tolerating antibiotics without apparent difficulty. All Other Systems: Reviewed and Negative Medications Current Inpatient Medications Medications (Trade) Dose Ordered Sig/Chris Route Start Time Stop Time Status Last Admin Dose Admin Allopurinol (Zyloprim Tab) 300 mg QAM PO 08/22/16 08:00 09/21/16 07:59 08/26/16 07:44 300 MG Cyanocobalamin (Vitamin B-12 Tab) 1,000 mcg QAM PO 08/22/16 08:00 09/21/16 07:59 08/26/16 07:44 1,000 MCG Finasteride (Proscar Tab) 5 mg QAM PO 08/22/16 08:00 09/21/16 07:59 08/26/16 07:44 5 MG Nortriptyline HCl (Pamelor Cap) 20 mg HS PO 08/21/16 22:00 09/20/16 21:59 08/25/16 21:30 20 MG Oxycodone HCl (Roxicodone Immediate Rel Tab) 15 mg Q4H PRN PO 08/21/16 14:45 09/04/16 14:44 08/25/16 21:31 15 MG Acetaminophen (Tylenol Tab) 650 mg Q4H PRN PO 08/21/16 15:15 09/20/16 15:14 08/25/16 08:52 650 MG Magnesium Hydroxide (Milk Of Magnesia Susp) 30 ml Q6H PRN PO 08/21/16 15:15 09/20/16 15:14 Ondansetron HCl (Zofran Inj) 4 mg Q6H PRN IV 08/21/16 15:15 09/20/16 15:14 Tamsulosin HCl (Flomax Cap) 0.8 mg HS PO 08/21/16 22:00 09/20/16 21:59 08/25/16 21:29 0.8 MG Heparin Sodium (Porcine) (Heparin 10 Unit/ ml 5 ml Flush) 5 ml PRN PRN FLUSH 08/21/16 17:15 09/20/16 17:14 08/21/16 20:05 5 ML Piperacillin Sod/ Tazobactam Sod 1 ea 1 ea UD PRN N/A 08/21/16 17:30 09/20/16 17:29 Piperacillin Sod/ Tazobactam Sod/ Dextrose (Zosyn Iv/D5 100ml) 120 ml @ 30 mls/hr Q8H IV 08/21/16 22:00 08/31/16 21:59 08/26/16 14:30 30 MLS/HR Cholecalciferol (Vitamin D Tab) 1,000 inter.unit QAM PO 08/23/16 08:00 09/22/16 07:59 08/26/16 07:44 1,000 INTER.UNIT Magnesium Oxide (Mag-Ox Tab) 400 mg BID PO 08/22/16 20:00 09/21/16 19:59 08/26/16 07:44 400 MG Fentanyl (Duragesic Patch) 25 mcg Q72H TD 08/22/16 10:30 09/05/16 10:29 08/25/16 10:12 25 MCG Miscellaneous (Fentanyl Patch Remove & Waste) 1 ea Q3D N/A 08/25/16 10:29 09/24/16 10:28 08/25/16 10:18 1 EA Miscellaneous Information (Check Fentanyl Patch Placement) 1 ea QS N/A 08/22/16 16:00 09/21/16 15:59 08/26/16 15:22 1 EA Enteral Nutritional Formula (Arginaid Extra) 1 box [id number] PO 08/22/16 17:00 09/21/16 16:59 08/25/16 16:29 1 BOX Zinc Sulfate (Zinc Sulfate Cap) 220 mg QAM PO 08/23/16 08:00 09/02/16 07:59 08/26/16 07:44 220 MG Ascorbic Acid (Vitamin C Tab) 500 mg BID PO 08/22/16 20:00 09/21/16 19:59 08/26/16 07:44 500 MG Multivitamins 1 tab 1 tab QAM PO 08/23/16 08:00 09/22/16 07:59 08/26/16 07:44 1 TAB Daptomycin/Sodium Chloride (Cubicin IV/Nss 50ml) 68.5 ml @ 120 mls/hr DAILY@1800 IV 08/22/16 18:00 10/03/16 17:59 08/26/16 15:22 120 MLS/HR Enoxaparin Sodium (Lovenox Inj) 40 mg DAILY SQ 08/24/16 08:00 09/23/16 07:59 Future Hold 08/24/16 08:06 40 MG Fentanyl Citrate (Fentanyl Inj) 25 mcg Q5M PRN IV 08/26/16 12:15 08/26/16 17:15 Ondansetron HCl 4 mg 4 mg ONE PRN IV 08/26/16 12:15 08/26/16 17:15 Lactated Ringer's (Lr 1000ml) 1,000 ml @ 180 mls/hr Q5H34M PRN IV 08/26/16 12:14 08/26/16 17:14 Objective Vital Signs Date Time Temp Pulse Resp B/P Pulse Ox O2 Delivery O2 Flow Rate FiO2 08/26/16 16:17 36.6 91 18 97 Room Air 08/26/16 15:30 Room Air 08/26/16 15:27 36.6 91 18 143/86 97 Room Air 08/26/16 14:31 143/85 08/26/16 14:03 36.9 88 18 180/89 99 Room Air 08/26/16 13:40 36.4 88 16 172/81 96 Room Air 08/26/16 13:30 86 18 159/82 97 Room Air 08/26/16 13:21 36.2 93 16 159/77 96 Room Air 08/26/16 08:00 Room Air 08/26/16 07:38 36.3 85 18 143/82 98 Room Air 08/26/16 00:21 36.7 91 16 135/72 96 CPAP 08/26/16 00:00 91 CPAP Laboratory Results Last 24 Hours Test 08/26/16 07:57 White Blood Count 7.05 K/uL Red Blood Count 4.74 M/uL Hemoglobin 11.5 g/dL Hematocrit 37.6 % Mean Corpuscular Volume 79.3 fL Mean Corpuscular Hemoglobin 24.3 pg Mean Corpuscular Hemoglobin Concent 30.6 g/dl RDW Standard Deviation 43.3 fL RDW Coefficient of Variation 14.8 % Platelet Count 446 K/uL Mean Platelet Volume 8.7 fL Assessment and Plan Right hip infection following SURJIT/re-op for infection with poly-exchange, now with new cellulitis/STI. Cultures growing E coli. He will continue on daptomycin and start oral ciprofloxacin to cover E. coli. [facility] for follow-up within next 2 weeks.
[2016-09-02] MEDS ORDERED: CIPR-255 PO (10:05)
[2016-09-07] MEDS ORDERED: DOXY-300 PO (13:53)
[2016-10-06] MEDS ORDERED: ERTA1INJ IV (11:31)
[2016-10-06] MEDS ORDERED: DAPT500I IV. (11:31)
[2016-10-14] MEDS ORDERED: AMOX875T PO (10:09)
[2016-10-16] MEDS ORDERED: TEST5GEL TOP (08:10)
[2016-10-28] MEDS ORDERED: HYZ/50125 PO (09:42)
[2016-10-28] MEDS ORDERED: DOXY-300 PO (10:04)
[2016-11-18] MEDS ORDERED: DAPT500I IV (09:37)
[2016-11-18] MEDS ORDERED: ERTA1INJ IV (09:37)
[2017-02-10] MEDS ORDERED: LEVO1TAB34 PO (10:06)
[2017-02-22] MEDS ORDERED: LEVO1TAB34 PO (13:42)
== END 2016-08-26 17:13 | disposition home or self-care (01) | DRG 863 ==
LOC: C.MS4W 14:04
PROVIDERS: ADMIT Family Medicine; ATTEND Internal Medicine
PROC: 02HV33Z Insertion of Infusion Device into Superior Vena Cava, Percutaneous Approach (ICD-10-PCS; principal; 2016-08-26 12:30)
DX: T81.4XXA Infection following a procedure, initial encounter (principal); L03.115 Cellulitis of right lower limb; E44.0 Moderate protein-calorie malnutrition; Z96.641 Presence of right artificial hip joint; M1A.9XX0 Chronic gout, unspecified, without tophus (tophi); B96.20 Unspecified Escherichia coli [E. coli] as the cause of diseases classified elsewhere; N40.0 Benign prostatic hyperplasia without lower urinary tract symptoms; F32.9 Major depressive disorder, single episode, unspecified; E66.01 Morbid (severe) obesity due to excess calories; E55.9 Vitamin D deficiency, unspecified; Y83.8 Other surgical procedures as the cause of abnormal reaction of the patient, or of later complication, without mention of misadventure at the time of the procedure; Y92.019 Unspecified place in single-family (private) house as the place of occurrence of the external cause; R42 Dizziness and giddiness; I10 Essential (primary) hypertension; G47.30 Sleep apnea, unspecified; S71.001A Unspecified open wound, right hip, initial encounter; X58.XXXA Exposure to other specified factors, initial encounter; M60.9 Myositis, unspecified; R93.7 Abnormal findings on diagnostic imaging of other parts of musculoskeletal system; R30.0 Dysuria; T84.51XA Infection and inflammatory reaction due to internal right hip prosthesis, initial encounter; Y83.1 Surgical operation with implant of artificial internal device as the cause of abnormal reaction of the patient, or of later complication, without mention of misadventure at the time of the procedure; Z51.81 Encounter for therapeutic drug level monitoring; Z79.01 Long term (current) use of anticoagulants

== ENCOUNTER → 2016-08-21 | Outpatient (CLI) | payer OTHER, MEDICARE ==
[~2016-08-21] MED LIST changes: +OPTIRAY 320 IV PRN
--- NOTE | 2016-08-21 14:19 | DIAGNOSTIC IMAGING REPORT ---
CT SCAN OF THE RIGHT HIP WITH IV CONTRAST CLINICAL HISTORY: Nonhealing wound. Staph infection. COMPARISON STUDY: Radiographs of the right hip dated 06/26/2016. TECHNIQUE: Following the IV administration of 94 cc of Optiray 320, CT scan of the right hip is performed from the bony pelvis to the distal femoral shaft. Images reviewed in the axial, sagittal, coronal planes. IV contrast was administered without complication. The examination is significantly degraded by streak artifact from right hip arthroplasty. CT DOSE: 2647.94 mGy.cm FINDINGS: The skeletal structures are osteopenic. A right hip arthroplasty is in near-anatomic alignment. No periprosthetic lucency is identified. No fracture is seen. Heterotopic bone formation is present around the proximal femur. No cortical destruction is seen. The visualized right hemipelvis appears intact. There is a large wound overlying the right hip with significant surrounding soft tissue induration/phlegmonous change. Fluid is suggested within the wound cavity. This extends from the cutaneous surface to the arthroplasty itself, and there is significant surrounding phlegmonous change. An organized fluid collection containing gas is suggested posterior to the subtrochanteric femur. This measures approximately 5 x 2 x 4.5 cm. The appearance is concerning for abscess. There is diffuse fatty atrophy of the regional musculature. There is significant induration with blurring of the fat planes involving the right gluteal musculature as well as the lateral thigh musculature. This likely represents myositis. There is induration of the surrounding subcutaneous fat in the right thigh with associated dermal thickening, likely representing cellulitis. There is atherosclerotic calcification of the regional arteries. The femoral vessels appear patent. Mildly enlarged right inguinal and pelvic sidewall lymph nodes are likely on a reactive basis. IMPRESSION: 1. The examination is degraded by streak artifact from a right hip arthroplasty. 2. There is no clear evidence of osteomyelitis. No fracture is seen. 3. There is a large cutaneous defect/wound along the lateral aspect of the right hip at the level of the arthroplasty. There is overlying cellulitis, and extensive induration/phlegmonous change surrounding the wound which extends from the dermal surface to the arthroplasty itself, likely on an infectious basis. 4. A more organized fluid collection is suggested posterior to the subtrochanteric femur and likely represents abscess. 5. There is significant myositis involving the regional musculature including the gluteal and lateral thigh muscles. Dictated: 08/21/2016 11:42 AM Transcribed: 08/21/2016 2:18 PM AYESHA_Iraida Electronically signed by: Demond Haro M.D. 08/21/2016 2:22 PM Dictated Date/Time: 08/21/2016 11:42 AM
== END | disposition home or self-care (01) ==
LOC: C.CTS 10:29
PROVIDERS: ATTEND Emergency Medicine
DX: S71.001A Unspecified open wound, right hip, initial encounter (principal); X58.XXXA Exposure to other specified factors, initial encounter; Z96.641 Presence of right artificial hip joint; M60.9 Myositis, unspecified; L03.115 Cellulitis of right lower limb; R93.7 Abnormal findings on diagnostic imaging of other parts of musculoskeletal system

== ENCOUNTER → 2016-09-14 | Outpatient (CLI) | payer OTHER, MEDICARE ==
[~2016-09-14] MED LIST changes: +ACET-1256 PO; +AMOX875T PO; +CIPR-255 PO; +CYAN1CAP3 PO; +DAPT500I IV.; +DOXY-300 PO; +ERTA1INJ IV; +HYZ/50125 PO; +LEVO1TAB33 PO; +LEVO1TAB34 PO; +LVQ750 PO; +NZRCR EXT; +TEST5GEL TOP
== END | disposition home or self-care (01) ==
LOC: C.LABSPEC 17:03
PROVIDERS: ATTEND Nurse Practitioner Adult Health
DX: R30.0 Dysuria (principal); T81.4XXA Infection following a procedure, initial encounter; Y83.8 Other surgical procedures as the cause of abnormal reaction of the patient, or of later complication, without mention of misadventure at the time of the procedure; L03.115 Cellulitis of right lower limb; R42 Dizziness and giddiness; I10 Essential (primary) hypertension; G47.30 Sleep apnea, unspecified; E66.01 Morbid (severe) obesity due to excess calories; Z96.641 Presence of right artificial hip joint; T84.51XA Infection and inflammatory reaction due to internal right hip prosthesis, initial encounter; Y83.1 Surgical operation with implant of artificial internal device as the cause of abnormal reaction of the patient, or of later complication, without mention of misadventure at the time of the procedure; Z51.81 Encounter for therapeutic drug level monitoring; Z79.01 Long term (current) use of anticoagulants

== ENCOUNTER → 2016-09-17 | Day surgery (SDC) | payer OTHER, MEDICARE ==
[~2016-09-17] VITALS: Ht 177.8 cm; Wt 155.0 kg
[2016-09-17 09:28] VITALS: BP 162/87; PULSE 92; TEMP 36; O2SAT 94; Ht 177.8 cm; Wt 155.0 kg
== END | disposition home or self-care (01) ==
LOC: C.MTU 09:25
PROVIDERS: ATTEND Internal Medicine Infectious Disease
DX: Z45.2 Encounter for adjustment and management of vascular access device (principal)

== ENCOUNTER → 2016-09-24 | Outpatient (CLI) | payer OTHER, MEDICARE ==
[~2016-09-24] MED LIST changes: -ACET-1256 PO; -AMOX875T PO; -CYAN1CAP3 PO; -DAPT500I IV; -DAPT500I IV.; -ERTA1INJ IV; -HYZ/50125 PO; -LEVO1TAB33 PO; -LEVO1TAB34 PO; -LVQ750 PO; -NZRCR EXT; -TEST5GEL TOP
== END | disposition home or self-care (01) ==
LOC: C.LAB1850 07:34
PROVIDERS: ATTEND Nurse Practitioner Adult Health
DX: N52.9 Male erectile dysfunction, unspecified (principal); N40.0 Benign prostatic hyperplasia without lower urinary tract symptoms

== ENCOUNTER → 2016-10-20 | Outpatient (CLI) | payer OTHER, MEDICARE ==
[~2016-10-20] VITALS: Ht 172.7 cm; Wt 161.9 kg
[~2016-10-20] MED LIST changes: +AMOX875T PO; -CHOL2000 PO; -CIPR-255 PO; +DAPT500I IV; +ERTA1INJ IV; +HYZ/50125 PO; +TEST5GEL TOP
[2016-10-20 12:31] VITALS: BP 183/92; PULSE 89; Ht 172.7 cm; Wt 161.9 kg
== END | disposition home or self-care (01) ==
LOC: C.NEUR 12:00
PROVIDERS: ATTEND Physician Assistant Medical
DX: G47.33 Obstructive sleep apnea (adult) (pediatric) (principal); I10 Essential (primary) hypertension

== ENCOUNTER → 2016-11-02 | Outpatient (CLI) | payer OTHER, MEDICARE ==
[~2016-11-02] MED LIST changes: -AMOX875T PO
--- NOTE | 2016-11-09 13:07 | POLYSOMNOGRAPH REPORT ---
CLINICAL DATA: A 66-year-old male with BMI of 54.12, referred for a baseline sleep study. He has had a history of sleep apnea for more than 20 years and needs a replacement CPAP machine. He is on Medicare and needs to show medical necessity for a new machine. On the evening of 11/02/2016, a home sleep apnea test was performed using a GridPoint type 3 monitor. RECORDING RESULTS: Total recording time was 9.6 hours. The patient monitoring time and estimated sleep time was 7.1 hours. RESPIRATORY DATA: Severe sleep apnea was documented. The LACY was 53.7. There were 208 obstructive, 18 mixed, and 1 central apneic episode. There were 154 hypopneic episodes. The longest respiratory event was 55 seconds. OXIMETRY DATA: Nocturnal hypoxemia was seen. Oxygen dariel was 83%. Mean saturation was 94%. Time below 89% was 10 minutes. HEART RATE DATA: Heart rates ranged from 55-69 beats per minute. SNORING DATA: Snoring was recorded throughout the night. IMPRESSION: Severe sleep apnea/hypopnea with an LACY of 53.7. RECOMMENDATIONS: The patient should be treated with CPAP. SCHU[place]ERD
== END | disposition home or self-care (01) ==
LOC: C.NEUR 10:15
PROVIDERS: ATTEND Physician Assistant Medical
DX: G47.33 Obstructive sleep apnea (adult) (pediatric) (principal)

== ENCOUNTER 2017-02-08 01:15 | Emergency (ER) | payer OTHER, MEDICARE ==
[~2017-02-08] VITALS: Ht 172.7 cm; Wt 170.4 kg
[~2017-02-08 01:15] MED LIST changes: -ACET-1256 PO; -CHOL2000 PO; -CYAN1CAP3 PO; -LEVO1TAB34 PO; -OPTIRAY 320 IV PRN
[2017-02-08 01:25] VITALS: Ht 172.7 cm; Wt 170.4 kg
[2017-02-08] MEDS ORDERED: ACET-1256 PO (02:03)
[2017-02-08] MEDS ORDERED: CLB/200 PO (02:05)
[2017-02-08] MEDS ORDERED: OXYC1TAB3 PO (02:07)
[2017-02-08] MEDS ORDERED: CHOL2000 PO (02:08)
[2017-02-08] MEDS ORDERED: CYAN1CAP3 PO (02:10)
--- NOTE | 2017-02-08 02:13 | EMERGENCY ROOM VISIT NOTE ---
History Report prepared by Boyd: Marlen Vickers Under the Supervision of: Dr. No Weathers D.O. First contact with patient: 01:36 Chief Complaint: HIP PAIN Stated Complaint: EXTREME PAIN IN RIGHT HIP DOWN TO KNEE History of Present Illness The patient is a 66 year old male who presents to the Emergency Room with complaints of worsening severe right hip pain beginning 4 days ago. The patient' s pain radiates to his knee. The patient has a history of right hip surgery by Dr. Oconnor. After surgery, he had a staph infection in the surgery site and had to have hip revisions surgery on June 25. He notes body aches beginning 4 days ago and denies any fevers, nausea, vomiting, diarrhea, or abdominal pain. At baseline, the patient ambulates with a walker. He notes his ability to walk with his walker has worsened because of his pain. The patient follows up at [facility] for IV antibiotic medication daily. His wound-vac output had been normal but he has redness to surgery site which is new. He has a history of sleep apnea and hypertension. Source of History: patient Onset: 4 days ago Position: pelvis (right hip) Symptom Intensity: severe Timing: worsening Modifying Factors (Worsening): movement Associated Symptoms: No fevers, No nausea, No vomiting, No abdominal pain, No diarrhea Review of Systems See HPI for pertinent positives & negatives. A total of 10 systems reviewed and were otherwise negative. Past Medical & Surgical Medical Problems: (1) Post op infection (2) Right Hip Wound Drainage Surgical Problems: (1) Post-operative state (2) Post-operative state Family History Heart Disease Hypertension Parkinson's Disease Social History Smoking Status: Never Smoker Drug Use: none Marital Status: Housing Status: lives with family Occupation Status: retired Current/Historical Medications Scheduled Acetaminophen (Tylenol), 1,000 MG PO DIRECTED Allopurinol (Zyloprim), 300 MG PO QAM Celecoxib (CeleBREX), 200 MG PO BID Cholecalciferol (Vitamin D3), 1 CAP PO DAILY Cyanocobalamin (B-12), 1,000 MCG PO DAILY Daptomycin (Daptomycin), 900 MG IV DAILY Ertapenem Sodium (Invanz), 1 GM IV DAILY Finasteride (Proscar), 5 MG PO QAM Hctz/Losartan (Hyzaar 12.5MG/50MG), 1 TAB PO DAILY Nortriptyline (Pamelor), 20 MG PO HS Tamsulosin HCl (Tamsulosin HCl), 1 CAP PO BID Scheduled PRN Oxycodone Ir (Roxicodone Ir), 5-10 MG PO Q4 PRN for Pain Allergies Coded Allergies: No Known Allergies (Unverified , 02/08/17) Physical Exam Vital Signs Date Time Temp Pulse Resp B/P (MAP) Pulse Ox O2 Delivery O2 Flow Rate FiO2 02/08/17 05:16 37.1 86 18 151/105 100 Room Air 02/08/17 03:21 94 Room Air 02/08/17 03:21 88 24 139/85 94 Room Air 02/08/17 01:25 36.4 77 18 186/88 100 Room Air Physical Exam General: Morbidly obese male who appears uncomfortable. HEENT: Head - normocephalic and atraumatic Pupils are equal, round, and reactive to light. Extraocular eye muscles are intact, and sclera are anicteric. Nose - moist nasal mucosa without discharge. Mouth - moist buccal mucosa. Oropharynx is nonerythematous and there is no tonsillar exudate or edema noted. Neck: Supple; no JVD, nuchal rigidity, cervical lymphadenopathy. Heart: Heart sounds distant secondary to body habitus Lungs: Lungs sounds distant secondary to body habitus Abdomen: Soft, completely nontender, nondistended, with good bowel sounds. There are no palpable pulsatile masses or hepatosplenomegaly. There is no guarding, rigidity, or rebound noted. Extremities: No evidence of cyanosis, clubbing, or edema. There are easily palpable peripheral pulses. There is erythema and warmth surrounding the wound over the right hip. Wound VAC is in place. Skin: warm and dry with good turgor and no rashes. Medical Decision & Procedures ER Provider Diagnostic Interpretation: Radiology results as stated below per my review and the radiologist's interpretation: Right Hip X-Ray: difficult to interpret secondary to underpenetration, hardware in place, no obvious osteo. Portable Chest X-Ray: no pulmonary infiltrate, Marie catheter in place Laboratory Results 02/08/17 02:30 Red Blood Count 5.04, Mean Corpuscular Volume 77.6, Mean Corpuscular Hemoglobin 25.8, Mean Corpuscular Hemoglobin Concent 33.2, Mean Platelet Volume 9.8, Neutrophils (%) (Auto) 67.4, Lymphocytes (%) (Auto) 17.6, Monocytes (%) (Auto) 11.3, Eosinophils (%) (Auto) 2.5, Basophils (%) (Auto) 0.8, Neutrophils # (Auto ) 5.73, Lymphocytes # (Auto) 1.50, Monocytes # (Auto) 0.96, Eosinophils # (Auto ) 0.21, Basophils # (Auto) 0.07 02/08/17 02:30 Test 02/08/17 02:30 02/08/17 02:38 02/08/17 03:20 White Blood Count 8.50 K/uL (4.8-10.8) Red Blood Count 5.04 M/uL (4.7-6.1) Hemoglobin 13.0 g/dL (14.0-18.0) Hematocrit 39.1 % (42-52) Mean Corpuscular Volume 77.6 fL (80-100) Mean Corpuscular Hemoglobin 25.8 pg (25-34) Mean Corpuscular Hemoglobin Concent 33.2 g/dl (32-36) Platelet Count 257 K/uL (130-400) Mean Platelet Volume 9.8 fL (7.4-10.4) Neutrophils (%) (Auto) 67.4 % Lymphocytes (%) (Auto) 17.6 % Monocytes (%) (Auto) 11.3 % Eosinophils (%) (Auto) 2.5 % Basophils (%) (Auto) 0.8 % Neutrophils # (Auto) 5.73 K/uL (1.4-6.5) Lymphocytes # (Auto) 1.50 K/uL (1.2-3.4) Monocytes # (Auto) 0.96 K/uL (0.11-0.59) Eosinophils # (Auto) 0.21 K/uL (0-0.5) Basophils # (Auto) 0.07 K/uL (0-0.2) RDW Standard Deviation 44.9 fL (36.4-46.3) RDW Coefficient of Variation 16.0 % (11.5-14.5) Immature Granulocyte % (Auto) 0.4 % Immature Granulocyte # (Auto) 0.03 K/uL (0.00-0.02) Prothrombin Time 10.8 SECONDS (9.0-12.0) Prothromb Time International Ratio 1.0 (0.9-1.1) Activated Partial Thromboplast Time 28.8 SECONDS (21.0-31.0) Partial Thromboplastin Ratio 1.1 Anion Gap 11.0 mmol/L (3-11) Est Creatinine Clear Calc Drug Dose 138.4 ml/min Estimated GFR () 107.1 Estimated GFR (Non- 92.4 BUN/Creatinine Ratio 17.5 (10-20) Calcium Level 8.5 mg/dl (8.5-10.1) Total Bilirubin 0.4 mg/dl (0.2-1) Aspartate Amino Transf (AST/SGOT) 15 U/L (15-37) Alanine Aminotransferase (ALT/SGPT) 20 U/L (12-78) Alkaline Phosphatase 93 U/L (45-117) Total Protein 7.3 gm/dl (6.4-8.2) Albumin 3.1 gm/dl (3.4-5.0) Globulin 4.2 gm/dl (2.5-4.0) Albumin/Globulin Ratio 0.7 (0.9-2) Bedside Lactic Acid Venous 1.46 mmol/L (0.90-1.70) Urine Color YELLOW Urine Appearance CLOUDY (CLEAR) Urine pH 5.0 (4.5-7.5) Urine Specific [place] 1.028 (1.000-1.030) Urine Protein NEG (NEG) Urine Glucose (UA) NEG (NEG) Urine Ketones NEG (NEG) Urine Occult Blood NEG (NEG) Urine Nitrite NEG (NEG) Urine Bilirubin NEG (NEG) Urine Urobilinogen NEG (NEG) Urine Leukocyte Esterase TRACE (NEG) Urine WBC (Auto) 1-5 /hpf (0-5) Urine RBC (Auto) 0-4 /hpf (0-4) Urine Hyaline Casts (Auto) 1-5 /lpf (0-5) Urine Epithelial Cells (Auto) >30 /lpf (0-5) Urine Bacteria (Auto) NEG (NEG) Urine Crystals CALCIUM OXALATE (NONE Urine Yeast (Auto) (NONE PRSENT) Laboratory results per my review. Medications Administered Medications (Trade) Dose Ordered Sig/Chris Route Start Time Stop Time Status Last Admin Dose Admin Hydromorphone HCl (Dilaudid Inj) 1 mg NOW STAT IV 02/08/17 02:31 11/13/17 02:32 DC 02/08/17 02:42 1 MG Heparin Sodium (Porcine) (Heparin 10 Unit/ ml 5 ml Flush) 10 ml STK-MED ONCE .ROUTE 02/08/17 05:18 02/08/17 05:19 DC 02/08/17 05:35 5 ML Procedure Dilaudid IV, ED Course 0158: Past medical records reviewed. The patient was evaluated in room A9B. A complete history and physical exam was performed. 0231: Dilaudid Inj 1 mg IV. 0459: The patient feels better and wants to go home. He has to be at [facility] in two hours and will follow up with Dr. Love this afternoon. The patient was advised to return to the ED if he has any worsening symptoms. 0520: Upon reevaluation, the patient is resting. I discussed findings and results with him. He verbalized agreement of the treatment plan. The patient was discharged home. Medical Decision The patient is a 66 year old male who presents to the Emergency Room with complaints of worsening severe right hip pain beginning 4 days ago. Differential diagnosis includes:Sepsis, osteomyelitis, wound infection. Lab results show: no leukocytosis, hemoglobin 13, lactic acid 1.4, normal renal function, glucose 109, normal LFTs and normal coags, urine: trace leukocyte esterase and >30 epithelial cells. This is a 66-year-old male patient with long-standing right hip postop wound infection. As he describes it, he has been going to the [facility] 7 days a week for the past 200 days to receive IV antibiotics. The patient has noticed increased pain in that right hip over the past 4 days. There has not been any increase of the output in his wound VAC. He has had no fevers, chills or other feelings of illness. He has no leukocytosis or fever. X-ray was performed and showed no obvious signs of osteomyelitis. However, in light of the patient's condition, I felt that he would require very close follow-up with orthopedics and infectious disease. He explains to me that he will have his usual dose of antibiotics this morning and then see his infectious disease doctor this afternoon and review things with her. After the patient had been discharged, the radiologist interpreted the x-ray of the right hip as questionable osteomyelitis. The charge nurse will fax a copy of this report to Dr. Love for her review. Medication Reconcilliation Current Medication List: was personally reviewed by me Blood Pressure Screening Patient's blood pressure: Elevated blood pressure Blood pressure disposition: Elevated BP felt to be situational Impression Primary Impression: Unspecified open wound, right hip, sequela Scribe Attestation The scribe's documentation has been prepared under my direction and personally reviewed by me in its entirety. I confirm that the note above accurately reflects all work, treatment, procedures, and medical decision making performed by me. Departure Information Dispostion Home / Self-Care Referrals Costa Garcia D.O. (PCP) Forms HOME CARE DOCUMENTATION FORM, IMPORTANT VISIT INFORMATION, WORK / SCHOOL INSTRUCTIONS Patient Instructions My [facility] Additional Instructions If you develop a fever or worsening hip pain, return to the ER. Follow up today with Dr. Love with regards to possible worsening infection
[2017-02-08] MEDS ORDERED: HYDROmorphone INJ 1 MG/ML SYR IV STA (02:31)
[2017-02-08 02:49] LABS: BASO % 0.8 %; BASO ABS # 0.07 K/uL (0-0.2); COMPLETE YES; EOS % 2.5 %; HEMATOCRIT 39.1 % (42-52); IG% 0.4 %; LYMPH % 17.6 %; MEAN CELL VOLUME 77.6 fL (80-100); MEAN CORPUSCULAR HEMOGLOBIN 25.8 pg (25-34); MEAN CORPUSCULAR HGB CONC 33.2 g/dl (32-36); MEAN PLATELET VOLUME 9.8 fL (7.4-10.4); MONO % 11.3 %; NEUT % 67.4 %; PLATELET COUNT 257 K/uL (130-400); RED BLOOD COUNT 5.04 M/uL (4.7-6.1)
[2017-02-08 02:59] LABS: PARTIAL THROMBOPLASTIN RATIO 1.1; PROTHROMBIN TIME (PATIENT) 10.8 SECONDS (9.0-12.0)
[2017-02-08 03:13] LABS: BUN/CREATININE RATIO 17.5 (10-20); CALCIUM 8.5 mg/dl (8.5-10.1); CREATININE 0.8 mg/dl (0.60-1.40); POTASSIUM 3.8 mmol/L (3.5-5.1)
[2017-02-08 03:15] LABS: ALB/GLOB RATIO 0.7 (0.9-2)
[2017-02-08 03:21] VITALS: O2SAT 94
[2017-02-08 03:34] LABS: URINE APPEARANCE CLOUDY (CLEAR); URINE BILIRUBIN NEG (NEG); URINE COLOR YELLOW; URINE EPITHELIAL CELL AUTO >30 /lpf (0-5); URINE NITRITE NEG (NEG); URINE SPECIFIC GRAVITY 1.028 (1.000-1.030); UROBILINOGEN NEG (NEG); ZZUR CULT IF INDIC CLEAN CATCH YES
[2017-02-08 03:35] LABS: MANUAL MICROSCOPIC REQUIRED? NO; REVIEW REQ? YES
[2017-02-08 05:16] VITALS: BP 151/105; PULSE 86; TEMP 37.1; O2SAT 100
--- NOTE | 2017-02-08 07:36 | DIAGNOSTIC IMAGING REPORT ---
R HIP UNILATERAL 2 VIEWS CLINICAL HISTORY: 66 years-old Male presenting with eval for osteo - surrounding hardware. TECHNIQUE: Frontal and frog-leg lateral views of the right hip were obtained. COMPARISON: CT from 08/21/2016. FINDINGS: Calcification along the anterolateral proximal metaphysis of the right femur consistent with chronic heterotopic ossification. Subjacent to this along the lateral cortex of the femur is a potential focal radiolucency. This is immediately deep to the previously seen extensive open wound. Total right hip arthroplasty. No malalignment or fracture. Image quality is overall degraded by body habitus and portable technique. IMPRESSION: No acute osseous injury is apparent. Postsurgical changes of total right hip arthroplasty. Suggestion of radiolucency along the lateral metaphysis of the right femur, which would be subjacent to the site of the deep ulceration/open wound on prior CT. This could raise concern for osteomyelitis. Further evaluation with cross-sectional imaging could be obtained if clinically indicated. The report will be called/faxed according to standard departmental protocol. Electronically signed by: Adelfo Lamb M.D. 02/08/2017 7:35 AM Dictated Date/Time: 02/08/2017 7:31 AM
--- NOTE | 2017-02-08 07:55 | DIAGNOSTIC IMAGING REPORT ---
CHEST ONE VIEW PORTABLE HISTORY: Sepsis COMPARISON: Chest 08/26/2016. FINDINGS: No pneumothorax. No pleural effusions. No new focal lung consolidations to suggest pneumonia. No evidence for pulmonary edema. The heart remains borderline enlarged. Stable mild perihilar interstitial thickening. Left subclavian central venous catheter tip is difficult to visualize but likely resides within the SVC. IMPRESSION: No significant change compared to the prior study. No acute process. Electronically signed by: Finesse Lowe M.D. 02/08/2017 7:53 AM Dictated Date/Time: 02/08/2017 7:52 AM
[2017-02-10] MEDS ORDERED: LEVO1TAB34 PO (10:06)
[2017-02-22] MEDS ORDERED: LEVO1TAB34 PO (13:42)
== END 2017-02-08 05:39 | disposition home or self-care (01) ==
LOC: C.EDB 01:17 → C.EDA 05:39
DX: T81.4XXA Infection following a procedure, initial encounter (principal); S71.001A Unspecified open wound, right hip, initial encounter; X58.XXXA Exposure to other specified factors, initial encounter; Y83.8 Other surgical procedures as the cause of abnormal reaction of the patient, or of later complication, without mention of misadventure at the time of the procedure; Z82.49 Family history of ischemic heart disease and other diseases of the circulatory system; Z82.0 Family history of epilepsy and other diseases of the nervous system

== ENCOUNTER → 2017-02-08 | Outpatient (CLI) | payer OTHER, MEDICARE ==
[~2017-02-08] MED LIST changes: +ACET-1256 PO; +CHOL2000 PO; +CYAN1CAP3 PO; -DOXY-300 PO; +LEVO1TAB34 PO; +OPTIRAY 320 IV PRN; -TEST5GEL TOP
--- NOTE | 2017-02-08 15:01 | DIAGNOSTIC IMAGING REPORT ---
RIGHT HIP CT CT DOSE: 1316.42 mGy.cm HISTORY: NONHEALING WOUND WITHIN THE RIGHT HIP. RIGHT HIP PAIN TECHNIQUE: Multiaxial CT images of the right hip were performed and reformatted in the sagittal and coronal plane following the use of intravenous contrast. A dose lowering technique was utilized adhering to the principles of ALARA. COMPARISON: Right hip CT 08/21/2016. Right hip radiograph 02/08/2017. FINDINGS: There is again noted an incision along the lateral aspect of the right hip. The deep portion of the incision is almost completely healed with only a tiny focus of gas remaining adjacent to the greater trochanter. There is persistent nonhealing area superficially measuring 2.7 cm. This area is not entirely included on this study. No loculated fluid collections to suggest an abscess. Right total hip arthroplasty. The hardware appears intact. No abnormal periprosthetic lucency. Suboptimal evaluation the right hip due to the metallic artifact. No fracture or dislocation within the right hip. No new sites of cortical destruction within the residual right femur to suggest osteomyelitis. Of note, the proximal portion of the right femur is suboptimally assessed due to the metallic artifact. Progressive heterotopic ossification surrounding the proximal femur. Tiny focal defect within the posterior cortex of the greater trochanter on image 200 remains stable and may be due to postoperative change. IMPRESSION: 1. No definite evidence for osteomyelitis within the residual proximal femur. 2. Progressive healing within the right lateral hip incision. 3. Progressive heterotopic ossification surrounding the proximal femur. 4. Right total hip arthroplasty. No abnormal periprosthetic lucency at this time. Electronically signed by: Finesse Lowe M.D. 02/08/2017 3:00 PM Dictated Date/Time: 02/08/2017 2:53 PM
== END | disposition home or self-care (01) ==
LOC: C.CTS 13:54
PROVIDERS: ATTEND Emergency Medicine
DX: S71.001A Unspecified open wound, right hip, initial encounter (principal); X58.XXXA Exposure to other specified factors, initial encounter

== ENCOUNTER 2017-02-26 10:12 | Inpatient (IN) | payer OTHER, MEDICARE ==
[~2017-02-26] VITALS: Ht 175.3 cm; Wt 169.0 kg
[2017-02-26] VITALS (7 sets, daily range): BP systolic 97–128; BP diastolic 49–82; PULSE 82–120; TEMP 36.3–38.1; O2SAT 91–98; Ht 175.3 cm; Wt 169.0 kg
[~2017-02-26 10:12] MED LIST changes: +ACET-1256 PO; +CHOL2000 PO; -CHOL20007 PO; +CYAN1CAP3 PO; +LEVO1TAB34 PO; -TYLOTC500 PO; -VTMB12 PO
[2017-02-26 10:48] LABS: BASO % 0.3 %; BASO ABS # 0.02 K/uL (0-0.2); COMPLETE YES; HEMATOCRIT 43.2 % (42-52); IG% 0.5 %; LYMPH % 12.1 %; LYMPH ABS # 0.73 K/uL (1.2-3.4); MEAN CELL VOLUME 79.3 fL (80-100); MEAN CORPUSCULAR HEMOGLOBIN 25.5 pg (25-34); MEAN CORPUSCULAR HGB CONC 32.2 g/dl (32-36); MEAN PLATELET VOLUME 9.6 fL (7.4-10.4); MONO % 0.8 %; NEUT % 85.3 %; PLATELET COUNT 241 K/uL (130-400); RED BLOOD COUNT 5.45 M/uL (4.7-6.1); WHITE BLOOD COUNT 6.02 K/uL (4.8-10.8)
[2017-02-26 10:57] LABS: INR 1.1 (0.9-1.1); PARTIAL THROMBOPLASTIN RATIO 1.1; PROTHROMBIN TIME (PATIENT) 11.7 SECONDS (9.0-12.0)
[2017-02-26 11:05] LABS: BLOOD UREA NITROGEN 18 mg/dl (7-18); BUN/CREATININE RATIO 17.4 (10-20); CALCIUM 8.6 mg/dl (8.5-10.1); CARBON DIOXIDE 29 mmol/L (21-32); CHLORIDE 99 mmol/L (98-107); CREATININE 1.01 mg/dl (0.60-1.40); GLUCOSE 98 mg/dl (70-99); MAGNESIUM 1.8 mg/dl (1.8-2.4); POTASSIUM 3.5 mmol/L (3.5-5.1); SODIUM 136 mmol/L (136-145)
[2017-02-26 11:16] LABS: ALKALINE PHOSPHATASE 104 U/L (45-117); ALT/SGPT 32 U/L (12-78); AST/SGOT 31 U/L (15-37); THYROID STIMULATING HORMONE 0.627 uIu/ml (0.300-4.500)
[2017-02-26 11:23] LABS: MANUAL MICROSCOPIC REQUIRED? NO; REVIEW REQ? NO; URINE APPEARANCE CLEAR (CLEAR); URINE BILIRUBIN NEG (NEG); URINE COLOR YELLOW; URINE NITRITE NEG (NEG); URINE SPECIFIC GRAVITY 1.025 (1.000-1.030); UROBILINOGEN NEG (NEG)
[2017-02-26] MEDS ORDERED: SODIUM CHLORIDE 0.9% 1000ML 1,000 ML IV STA (12:01)
[2017-02-26] MEDS ORDERED: SODIUM CHLORIDE 0.9% 500ML 500 ML IV STA (12:01)
[2017-02-26] MEDS ORDERED: IMIPENEM/CILASTATIN IV 500 MG in DEXTROSE 5% 100ML 100 ML IV STA (12:01)
[2017-02-26] MEDS ORDERED: LEVO1TAB33 PO (12:06)
[2017-02-26] MEDS ORDERED: HEPARIN SOD 5000 UNIT/0.5 ML CARP SQ SCH (14:00)
[2017-02-26] MEDS ORDERED: ACETAMINOPHEN 325 MG TAB PO PRN (14:00)
[2017-02-26] MEDS ORDERED: ONDANSETRON INJ 2 MG/ML 2 ML VIAL IV PRN (14:00)
[2017-02-26] MEDS ORDERED: POLYETHYLENE (MIRALAX) 17 GM PACK PO PRN (14:00)
[2017-02-26] MEDS ORDERED: OXYCODONE HCL IR 5 MG TAB (IMMEDIATE RELEASE) PO PRN (14:00)
[2017-02-26] MEDS ORDERED: IMIPENEM/CILASTATIN IV 500 MG in DEXTROSE 5% 100ML 100 ML IV SCH (14:00)
[2017-02-26] MEDS ORDERED: MAGNESIUM HYDROXIDE SUSP 30 ML UDC PO PRN (14:00)
[2017-02-26] MEDS ORDERED: HydrALAZINE HCL 20 MG/ML VIAL IV. PRN (14:30)
--- NOTE | 2017-02-26 14:31 | History and Physical ---
History & Physical Date & Time of Service: Feb 26, 2017 at 14:27 Chief Complaint: Chills, Weaknesss, Pain Primary Care Physician: No Doctor, Assigned History of Present Illness Source: patient, spouse Mr. Lopez is a 66 y/o male with PMHx of SABRINA on CPAP, HTN, BPH, Gout, GERD, Venous Insufficiency, Rheumatic Fever (Childhood), S/P R TKA, S/P R SURJIT with poor wound healing, and ongoing Bacteremia who presents to the ED c/o fever/ chills and generalized weakness x 2 days. Patient underwent SURJIT on 05/08/[address] Oconnor. In May, he developed pain and had a revision and abx bead therapy. He subsequently developed abscesses. He was admitted in July 2016 for worsening of these symptoms. He was placed on Dapto, Zosyn, and Cipro at time of discharge. He currently is on Daptomycin, Invanz, and Levaquin and has wound vac in place. He states he has been feeling overall well but has been struggling with the non-healing wound of his hip x 1 month. However, he states he fever/chills and generalized weakness started Wednesday. He is reporting malaise and sleeping most of the day. He had some dyspepsia yesterday that is currently resolved. He also reports increased tenderness and edema of the hip. He had BCx on 02/08 that revealed one to have no growth and 1 cx with stenotrophomonas maltophilia. Patient reports they took one cx from arm and one from port but reports do not specify site. He had repeat cultures on 02/15 that revealed the same organism and he states this was drawn from the port. Past Medical/Surgical History 1. SABRINA on CPAP 2. HTN 3. BPH 4. Gout 5. GERD 6. Post-Operative DVT (RESOLVED) 7. Rheumatic Fever - Childhood 8. Venous Insufficiency 9. Hypogonadism and Low Testosterone Family History Heart Disease Hypertension Parkinson's Disease Social History Smoking Status: Former Smoker Alcohol Use: none Drug Use: none Marital Status: Occupational Status: retired Immunizations History of Influenza Vaccine: Yes History of Tetanus Vaccine?: No History of Pneumococcal: No History of Hepatitis B Vaccine: No Multi-Drug Resistant Organisms History of MDRO: No Allergies Coded Allergies: No Known Allergies (Unverified , 02/26/17) Home Medications Scheduled Acetaminophen (Tylenol), 1,000 MG PO DIRECTED Allopurinol (Zyloprim), 300 MG PO QAM Cholecalciferol (Vitamin D3), 1 CAP PO QAM Cyanocobalamin (B-12), 1,000 MCG PO QAM Daptomycin (Daptomycin), 900 MG IV DAILY Ertapenem Sodium (Invanz), 1 GM IV DAILY Finasteride (Proscar), 5 MG PO QAM Hctz/Losartan (Hyzaar 12.5MG/50MG), 1 TAB PO QAM Levofloxacin (Levaquin), 500 MG PO QAM Nortriptyline (Pamelor), 20 MG PO HS Tamsulosin HCl (Tamsulosin HCl), 1 CAP PO BID Scheduled PRN Oxycodone Ir (Roxicodone Ir), 10 MG PO TID PRN for Pain Review of Systems Constitutional: + fever, + chills, + weakness, + fatigue ENT: No nasal symptoms, No sore throat, No trouble swallowing Respiratory: No cough, No shortness of breath Cardiovascular: No chest pain, No palpitations Abdomen: + problem reported (upset stomach on 02/25), No pain, No nausea, No vomiting, No diarrhea, No constipation, No GI bleeding Musculoskeletal: + joint pain (R hip extending to R knee), No swelling, No calf pain Genitourinary - Male: No dysuria Hematologic / Lymphatic: No abnormal bleeding/bruising Integumentary: No rash, No new/changing skin lesions Physical Exam Vital Signs Date Time Temp Pulse Resp B/P (MAP) Pulse Ox O2 Delivery O2 Flow Rate FiO2 02/26/17 13:55 122 20 128/83 98 Room Air 02/26/17 12:46 112 14 182/97 93 Room Air 02/26/17 11:20 98 Room Air 02/26/17 10:48 104 02/26/17 10:14 37.0 107 22 174/100 94 Room Air General Appearance: no apparent distress, + obese Head: normocephalic, atraumatic Eyes: sclerae normal ENT: hearing grossly normal Neck: supple, no JVD, trachea midline Respiratory/Chest: lungs clear, normal breath sounds, no respiratory distress, no accessory muscle use, + pertinent finding (Marie placed without erythema or drainage around insert site; mild contact dermatitis around edges of clear dressing; no pain to palpation) Cardiovascular: regular rate, rhythm, no gallop, no murmur Abdomen/GI: normal bowel sounds, non tender, soft Back: normal inspection Extremities/Musculoskelatal: + pertinent finding (wound vac to R Hip; venous insufficiency of b/l shins with brown discoloration) Neurologic/Psych: alert, oriented x 3 Skin: normal color, warm/dry Diagnostics Laboratory Results Results Past 24 Hours Test 02/26/17 10:30 02/26/17 10:35 02/26/17 10:58 02/26/17 11:30 Range/Units Urine Color YELLOW Urine Appearance CLEAR CLEAR Urine pH 5.0 4.5-7.5 Urine Specific [place] 1.025 1.000-1.030 Urine Protein TRACE NEG Urine Glucose (UA) NEG NEG Urine Ketones NEG NEG Urine Occult Blood NEG NEG Urine Nitrite NEG NEG Urine Bilirubin NEG NEG Urine Urobilinogen NEG NEG Urine Leukocyte Esterase NEG NEG Urine WBC (Auto) 1-5 0-5 /hpf Urine RBC (Auto) 0-4 0-4 /hpf Urine Hyaline Casts (Auto) 0 0-5 /lpf Urine Epithelial Cells (Auto) 5-10 0-5 /lpf Urine Bacteria (Auto) NEG NEG White Blood Count 6.02 4.8-10.8 K/uL Red Blood Count 5.45 4.7-6.1 M/uL Hemoglobin 13.9 14.0-18.0 g/dL Hematocrit 43.2 42-52 % Mean Corpuscular Volume 79.3 80-100 fL Mean Corpuscular Hemoglobin 25.5 25-34 pg Mean Corpuscular Hemoglobin Concent 32.2 32-36 g/dl Platelet Count 241 130-400 K/uL Mean Platelet Volume 9.6 7.4-10.4 fL Neutrophils (%) (Auto) 85.3 % Lymphocytes (%) (Auto) 12.1 % Monocytes (%) (Auto) 0.8 % Eosinophils (%) (Auto) 1.0 % Basophils (%) (Auto) 0.3 % Neutrophils # (Auto) 5.13 1.4-6.5 K/uL Lymphocytes # (Auto) 0.73 1.2-3.4 K/uL Monocytes # (Auto) 0.05 0.11-0.59 K/uL Eosinophils # (Auto) 0.06 0-0.5 K/uL Basophils # (Auto) 0.02 0-0.2 K/uL RDW Standard Deviation 45.9 36.4-46.3 fL RDW Coefficient of Variation 16.0 11.5-14.5 % Immature Granulocyte % (Auto) 0.5 % Immature Granulocyte # (Auto) 0.03 0.00-0.02 K/uL Prothrombin Time 11.7 9.0-12.0 SECONDS Prothromb Time International Ratio 1.1 0.9-1.1 Activated Partial Thromboplast Time 28.7 21.0-31.0 SECONDS Partial Thromboplastin Ratio 1.1 Sodium Level 136 136-145 mmol/L Potassium Level 3.5 3.5-5.1 mmol/L Chloride Level 99 98-107 mmol/L Carbon Dioxide Level 29 21-32 mmol/L Anion Gap 8.0 3-11 mmol/L Blood Urea Nitrogen 18 7-18 mg/dl Creatinine 1.01 0.60-1.40 mg/dl Est Creatinine Clear Calc Drug Dose 108.2 ml/min Estimated GFR () 88.8 Estimated GFR (Non- 76.6 BUN/Creatinine Ratio 17.4 10-20 Random Glucose 98 70-99 mg/dl Calcium Level 8.6 8.5-10.1 mg/dl Magnesium Level 1.8 1.8-2.4 mg/dl Total Bilirubin 0.9 0.2-1 mg/dl Direct Bilirubin 0.3 0-0.2 mg/dl Aspartate Amino Transf (AST/SGOT) 31 15-37 U/L Alanine Aminotransferase (ALT/SGPT) 32 12-78 U/L Alkaline Phosphatase 104 45-117 U/L Troponin I < 0.015 0-0.045 ng/ml Total Protein 7.7 6.4-8.2 gm/dl Albumin 3.1 3.4-5.0 gm/dl Lipase 61 73-393 U/L Thyroid Stimulating Hormone (TSH) 0.627 0.300-4.500 uIu/ml Bedside Lactic Acid Venous 2.16 0.90-1.70 mmol/L Influenza Type A Antigen Neg for Influ A NEG Influenza Type B Antigen Neg for Influ B NEG Test 02/26/17 14:23 Range/Units Microbiology Results 02/26/17 Blood Culture, Received Pending 02/26/17 Blood Culture, Received Pending 02/26/17 Blood Culture, Received Pending 02/26/17 Urine Culture, Received Pending Impression Assessment and Plan Mr. Lopez is a 66 y/o male with PMHx of SABRINA on CPAP, HTN, BPH, Gout, GERD, Venous Insufficiency, Rheumatic Fever (Childhood), S/P R TKA, S/P R SURJIT with poor wound healing, and ongoing Bacteremia who presents to the ED c/o fever/ chills and generalized weakness x 2 days. Ongoing Bacteremia - R Hip Hardware vs Marie Seeding vs Endocarditis? - Patient is afebrile and without leukocytosis on presentation - lactic 2.16 - Multiple site Bcx are pending; wound cx pending from Wound Clinic - Dapto and Levaquin provided - sub Ertapenem with Imipenem/Cilastatin 1 g Q8H - Check uric acid given H/O gout - compliant with Allopurinol - Roxicodone 10 mg TID PRN - Discussed with Dr. Montalvo who replaced Marie in July - concern that this will be a third placement which may be difficult to place; recommend orthopedic clearance that this is not hardware seeding before attempting to place a new line -- Recommended to get clearance from orthopedics and then place consult for surgery if they do not think it is the hardware - Patient does not want another hip surgery but is interested in getting opinions and stated he may want multiple opinions before going forward - Consult orthopedic surgery - Dr. Oconnor performed initial replacement and revision - Has an appt. with Dr. Ace on Wednesday - Consult Infectious Disease - appreciate recommendations Poorly Healing R Hip Wound with Vac: - Malnourishment - previous admission reveals that orthopedics wanted better nutrition prior to surgery - has been using protein supplementation but reporting progressive weight gain since and is now his pre-hip replacement weight (lost 60 lbs to have his hip replaced) - Treatment as above and consult wound care - appreciate assistance H/O Rheumatic Fever in [place]: - Given febrile illness and ongoing infection will obtain echo to evaluate for possible vegetation - may be limited due to body habitus HTN: - States he only take 1/2 pill of Losartan/HCTZ when he lost weight - now he is back to weight when he was taking 1 pill daily - Hyzaar 1 tab daily and cover with Hydralazine PRN Venous Insufficiency: - Pamelor 20 mg daily BPH: - Flomax 0.4 mg BID and Proscar 5 mg daily DVT Prophylaxis: SCDs - Hold chemical means overnight pending surgical intervention -- Does have H/O post-op DVT as he had his knee replaced then drove on a long car trip right after Code Status: FULL RESUSCITATION Disposition: - From home - continue Abx and await cx - likely needs either new Marie vs hardware removal? Resident Physician Supervision Note: I was present with PA - Medina Knox during the history and exam. I discussed the case with the PA and agree with the findings and plan as documented in the note. Any exceptions or clarifications are listed here: 66 y/o M Hx hip R SURJIT and subsequent infection of surgical cite - currently with wound vac and cebtral access site receiving Dapto, Invanz, Levaquin as outpt. Unfortunately has bailon recurrence of fevers over past 2 days despite Abx treatment. Denies increasing pain at his hip. He had previously grown Stenotropamonas from the wound site - most recent culture was neg. OE Pleasant middle-aged male - morbidly obese - no distress AAO x 3 S1,2 R - no evidence of central line infection CTAB NT, ND Minimal edema P: We are advised to place the pt on Maxipime in place of Invanz to cover potential pseudomonas which is overlooked by his current therapy Current infection source may be central access line vs hardware - Pt to be evaluated by ortho - additional cultures are pending It would be prudent to remove and culture his central line due to his ongoing infection and a MEGHAN may be merited considering his habitus ID is aware of hospitalization and will see this pt Documented By: Theo Brandon Level of Care Telemetry Advanced Directives Existing Living Will: No Existing Power of Postie: No Resuscitation Status FULL RESUSCITATION VTE Prophylaxis VTE Risk Assessment Done? Y/N: Yes Risk Level: Moderate Given or contraindicated: SCD's Social Service Consult None Apply
[2017-02-26] MEDS ORDERED: IMIPENEM/CILASTATIN CONSULT ACTIVE SCH (14:52)
[2017-02-26] MEDS: SODIUM CHLORIDE 0.9% 1000ML 1,000 ML IV SCH (16:33)
[2017-02-26] MEDS ORDERED: IMIPENEM IV SCH (18:00)
[2017-02-26] MEDS ORDERED: CILASTATIN IV SCH (18:00)
[2017-02-26] MEDS ORDERED: DEXTROSE 5% IV SCH (18:00)
--- NOTE | 2017-02-26 18:09 | EMERGENCY ROOM VISIT NOTE ---
History Report prepared by Boyd: Khanh Staley Under the Supervision of: Dr. Hernandez Rosa M.D. First contact with patient: 10:28 Chief Complaint: ILLNESS Stated Complaint: CHILLS, WEAKNESSS, PAIN History of Present Illness The patient is a 66 year old male who presents to the Emergency Room with complaints of weakness that began recently. He has been following up with the Wound Clinic for an infected hip hardware after a hip replacement. Last week, he had a positive blood culture and was placed on IV antibiotics. Recently, he began to have fevers, chills, and his weakness. He was placed onto Invanz, Daptomycin, and Levaquin. However, his symptoms have continued, so he was referred here by the Wound Clinic. He notes that for the past three weeks, his wound has been more sensitive, swollen, and has been having difficulty healing. Yesterday, he had an episode of nausea, but has not had much of it today. Pt denies LOC, headache, diaphoresis, visual changes, neck pain, chest pain, breathing difficulties, vomiting, abdominal pain, back pain, melena, hematochezia, urinary symptoms, numbness, lymphadenopathy, rash, or other complaints. He has a recent history of an E Coli infection. Source of History: patient Onset: recently Position: other (Global) Symptom Intensity: moderate Quality: other (Weakness) Timing: constant Associated Symptoms: + fevers, + chills Review of Systems See HPI for pertinent positives and negatives. A total of ten systems were reviewed and were otherwise negative. Past Medical & Surgical Medical Problems: (1) Bacteremia (2) Knee pain (3) Positive blood culture (4) Post op infection (5) Right Hip Wound Drainage Surgical Problems: (1) Post-operative state (2) Post-operative state Family History Heart Disease Hypertension Parkinson's Disease Social History Smoking Status: Never Smoker Drug Use: none Marital Status: Housing Status: lives with family Occupation Status: retired Current/Historical Medications Scheduled Acetaminophen (Tylenol), 1,000 MG PO DIRECTED Allopurinol (Zyloprim), 300 MG PO QAM Cholecalciferol (Vitamin D3), 1 CAP PO QAM Cyanocobalamin (B-12), 1,000 MCG PO QAM Daptomycin (Daptomycin), 900 MG IV DAILY Ertapenem Sodium (Invanz), 1 GM IV DAILY Finasteride (Proscar), 5 MG PO QAM Hctz/Losartan (Hyzaar 12.5MG/50MG), 1 TAB PO QAM Levofloxacin (Levaquin), 500 MG PO QAM Nortriptyline (Pamelor), 20 MG PO HS Tamsulosin HCl (Tamsulosin HCl), 1 CAP PO BID Scheduled PRN Oxycodone Ir (Roxicodone Ir), 10 MG PO TID PRN for Pain Allergies Coded Allergies: No Known Allergies (Unverified , 02/26/17) Physical Exam Vital Signs Date Time Temp Pulse Resp B/P (MAP) Pulse Ox O2 Delivery O2 Flow Rate FiO2 02/26/17 13:56 98 Room Air 02/26/17 13:55 122 20 128/83 98 Room Air 02/26/17 12:46 112 14 182/97 93 Room Air 02/26/17 11:20 98 Room Air 02/26/17 10:48 104 02/26/17 10:14 37.0 107 22 174/100 94 Room Air Physical Exam GENERAL: Awake, alert, uncomfortable-appearing, in no distress HENT: Normocephalic, atraumatic. Oropharynx unremarkable. EYES: Normal conjunctiva. Sclera non-icteric. NECK: Supple. No nuchal rigidity. FROM. No JVD. RESPIRATORY: Clear to auscultation. CARDIAC: Regular rate, normal rhythm. Extremities warm and well perfused. Pulses equal. ABDOMEN: Soft, non-distended. No tenderness to palpation. No rebound or guarding. No masses. RECTAL: Deferred. MUSCULOSKELETAL: Chest examination reveals no tenderness. The back is symmetrical on inspection without obvious abnormality. There is no CVA tenderness to palpation. No joint edema. Wound Vac in place to the right hip. No surrounding cellulitis. LOWER EXTREMITIES: Calves are equal size bilaterally and non-tender. No edema. Chronic venous discoloration. NEURO: Normal sensorium. No sensory or motor deficits noted. SKIN: No rash or jaundice noted. Medical Decision & Procedures Laboratory Results 02/26/17 10:35 Red Blood Count 5.45, Mean Corpuscular Volume 79.3, Mean Corpuscular Hemoglobin 25.5, Mean Corpuscular Hemoglobin Concent 32.2, Mean Platelet Volume 9.6, Neutrophils (%) (Auto) 85.3, Lymphocytes (%) (Auto) 12.1, Monocytes (%) (Auto) 0.8, Eosinophils (%) (Auto) 1.0, Basophils (%) (Auto) 0.3, Neutrophils # (Auto) 5.13, Lymphocytes # (Auto) 0.73, Monocytes # (Auto) 0.05, Eosinophils # (Auto) 0.06, Basophils # (Auto) 0.02 02/26/17 10:35 Test 02/26/17 10:30 02/26/17 10:35 02/26/17 10:58 02/26/17 11:30 Urine Color YELLOW Urine Appearance CLEAR (CLEAR) Urine pH 5.0 (4.5-7.5) Urine Specific [place] 1.025 (1.000-1.030) Urine Protein TRACE (NEG) Urine Glucose (UA) NEG (NEG) Urine Ketones NEG (NEG) Urine Occult Blood NEG (NEG) Urine Nitrite NEG (NEG) Urine Bilirubin NEG (NEG) Urine Urobilinogen NEG (NEG) Urine Leukocyte Esterase NEG (NEG) Urine WBC (Auto) 1-5 /hpf (0-5) Urine RBC (Auto) 0-4 /hpf (0-4) Urine Hyaline Casts (Auto) 0 /lpf (0-5) Urine Epithelial Cells (Auto) 5-10 /lpf (0-5) Urine Bacteria (Auto) NEG (NEG) White Blood Count 6.02 K/uL (4.8-10.8) Red Blood Count 5.45 M/uL (4.7-6.1) Hemoglobin 13.9 g/dL (14.0-18.0) Hematocrit 43.2 % (42-52) Mean Corpuscular Volume 79.3 fL (80-100) Mean Corpuscular Hemoglobin 25.5 pg (25-34) Mean Corpuscular Hemoglobin Concent 32.2 g/dl (32-36) Platelet Count 241 K/uL (130-400) Mean Platelet Volume 9.6 fL (7.4-10.4) Neutrophils (%) (Auto) 85.3 % Lymphocytes (%) (Auto) 12.1 % Monocytes (%) (Auto) 0.8 % Eosinophils (%) (Auto) 1.0 % Basophils (%) (Auto) 0.3 % Neutrophils # (Auto) 5.13 K/uL (1.4-6.5) Lymphocytes # (Auto) 0.73 K/uL (1.2-3.4) Monocytes # (Auto) 0.05 K/uL (0.11-0.59) Eosinophils # (Auto) 0.06 K/uL (0-0.5) Basophils # (Auto) 0.02 K/uL (0-0.2) RDW Standard Deviation 45.9 fL (36.4-46.3) RDW Coefficient of Variation 16.0 % (11.5-14.5) Immature Granulocyte % (Auto) 0.5 % Immature Granulocyte # (Auto) 0.03 K/uL (0.00-0.02) Prothrombin Time 11.7 SECONDS (9.0-12.0) Prothromb Time International Ratio 1.1 (0.9-1.1) Activated Partial Thromboplast Time 28.7 SECONDS (21.0-31.0) Partial Thromboplastin Ratio 1.1 Anion Gap 8.0 mmol/L (3-11) Est Creatinine Clear Calc Drug Dose 108.2 ml/min Estimated GFR () 88.8 Estimated GFR (Non- 76.6 BUN/Creatinine Ratio 17.4 (10-20) Uric Acid 3.9 mg/dl (2.6-7.2) Calcium Level 8.6 mg/dl (8.5-10.1) Magnesium Level 1.8 mg/dl (1.8-2.4) Total Bilirubin 0.9 mg/dl (0.2-1) Direct Bilirubin 0.3 mg/dl (0-0.2) Aspartate Amino Transf (AST/SGOT) 31 U/L (15-37) Alanine Aminotransferase (ALT/SGPT) 32 U/L (12-78) Alkaline Phosphatase 104 U/L (45-117) Troponin I < 0.015 ng/ml (0-0.045) Total Protein 7.7 gm/dl (6.4-8.2) Albumin 3.1 gm/dl (3.4-5.0) Lipase 61 U/L (73-393) Thyroid Stimulating Hormone (TSH) 0.627 uIu/ml (0.300-4.500) Bedside Lactic Acid Venous 2.16 mmol/L (0.90-1.70) Influenza Type A Antigen Neg for Influ A (NEG) Influenza Type B Antigen Neg for Influ B (NEG) Laboratory results reviewed by me Medications Administered Medications (Trade) Dose Ordered Sig/Chris Route Start Time Stop Time Status Last Admin Dose Admin Imipenem/ Cilastatin Sodium 500 mg/Dextrose 110 ml @ 100 mls/hr NOW STAT IV 02/26/17 12:01 02/26/17 13:06 DC 02/26/17 12:46 100 MLS/HR Sodium Chloride 1,000 ml @ 125 mls/hr Q8H STAT IV 02/26/17 12:01 02/26/17 16:19 DC 02/26/17 12:45 125 MLS/HR Sodium Chloride 500 ml @ 999 mls/hr Q31M STAT IV 02/26/17 12:01 02/26/17 12:37 DC 02/26/17 12:01 999 MLS/HR ED Course 1028: The patient was evaluated in room A12A. A complete history and physical exam was performed. 1149: I spoke with Dr. Purcell of Infectious Disease at this time. He will come into the hospital to evaluate the patient. He would like us to give him a dose of Imipenem. 1200: I updated the patient at this time. I will order him fluids and his antibiotic. 1201: Ordered Sodium Chloride 500 ml @ 999 mls/hr IV, Sodium Chloride 1000 ml @ 125 mls/hr IV, Imipenem/ Cilastatin Sodium 500 mg/Dextrose 110 ml @ 100 mls/hr IV 1212: Upon reexamination, the patient was resting. I discussed the test results and treatment plan with him. I discussed the patient's case with Dr. Brandon of [facility] at this time. The patient will be evaluated for further management. Medical Decision Triage Nursing notes reviewed. The patient's presentation and history were concerning for fevers and chills and recent bacteremia Etiologies such as sepsis, bacteremia, viral syndrome, medication reaction, urinary tract infection,meningitis, as well as others were entertained. The patient was evaluated. He had some mild tachycardia noted. He has some malaise as well. The patient had blood work obtained. I had performed blood cultures 2 performed as well as a blood culture from his port. The patient had a mild lactic acidosis however his white blood cell count was negative. Remainder of his labs are unremarkable. I discussed the case with Dr. Purcell of infectious disease. He recommended a dose of IV imipenem and admission for observation pending cultures. Consultation was made with internal medicine. The patient was evaluated further management. Medication Reconcilliation Current Medication List: was personally reviewed by me Blood Pressure Screening Patient's blood pressure: Elevated blood pressure Referred to the hospitalist. Consults Time Called: 1145 Consulting Physician: Dr. Purcell - Infectious Disease Returned Call: [phone] I discussed the patient's case with him at this time. Please see the ED course for more information. Additional Consults: Time Called: 1210 Consulted Physician: Dr. Brandon - [facility] Returned Call: [phone] Additional Comments: Discussed the patient's case. The patient will be evaluated for further treatment and disposition. Impression Primary Impression: Febrile illness Additional Impression: suspected bacteremia Scribe Attestation The scribe's documentation has been prepared under my direction and personally reviewed by me in its entirety. I confirm that the note above accurately reflects all work, treatment, procedures, and medical decision making performed by me. Departure Information Dispostion Being Evaluated By Hospitalist Referrals No Doctor, Assigned (PCP) Patient Instructions My [facility] Problem Qualifiers
[2017-02-26] MEDS: IMIPENEM/CILASTATIN IV 1,000 MG in DEXTROSE 5% 250ML 250 ML IV SCH (18:47)
[2017-02-26] MEDS: TAMSULOSIN HCL 0.4 MG CAP PO SCH (19:53)
[2017-02-26] MEDS: NORTRIPTYLINE HCL 10 MG CAP PO SCH (19:54)
[2017-02-26] MEDS: ACETAMINOPHEN 500 MG TAB PO SCH (19:54)
[2017-02-26] MEDS: ALUMINUM/MAGNESIUM/SIMETH (MAALOX MAX) 30 ML UDC PO PRN (23:19)
[2017-02-27] MEDS: IMIPENEM/CILASTATIN IV 1,000 MG in DEXTROSE 5% 250ML 250 ML IV SCH ×3 (02:12→18:16)
[2017-02-27 03:55] VITALS: BP 108/53; PULSE 80; TEMP 37; O2SAT 97
[2017-02-27 06:21] LABS: BASO % 0.4 %; BASO ABS # 0.04 K/uL (0-0.2); COMPLETE YES; EOS % 0.9 %; HEMATOCRIT 34.8 % (42-52); IG% 0.3 %; LYMPH % 16.8 %; LYMPH ABS # 1.64 K/uL (1.2-3.4); MEAN CELL VOLUME 78.2 fL (80-100); MEAN CORPUSCULAR HEMOGLOBIN 25.2 pg (25-34); MEAN CORPUSCULAR HGB CONC 32.2 g/dl (32-36); MEAN PLATELET VOLUME 9.7 fL (7.4-10.4); MONO % 17.6 %; PLATELET COUNT 196 K/uL (130-400); RED BLOOD COUNT 4.45 M/uL (4.7-6.1); WHITE BLOOD COUNT 9.74 K/uL (4.8-10.8)
[2017-02-27] MEDS: SODIUM CHLORIDE 0.9% 1000ML 1,000 ML IV SCH (06:27)
[2017-02-27 06:51] LABS: CALCIUM 7.8 mg/dl (8.5-10.1); CREATININE 0.71 mg/dl (0.60-1.40); POTASSIUM 3.4 mmol/L (3.5-5.1)
[2017-02-27 07:45] VITALS: BP 130/77; PULSE 87; TEMP 36.7; O2SAT 99
[2017-02-27] MEDS: CYANOCOBALAMIN 500 MCG TAB (VIT B-12) PO SCH (07:56)
[2017-02-27] MEDS: ACETAMINOPHEN 500 MG TAB PO SCH ×2 (07:56→21:30)
[2017-02-27] MEDS: LOSARTAN/HCTZ 50-12.5 EA TAB PO SCH (07:56)
[2017-02-27] MEDS: ALLOPURINOL 300 MG TAB PO SCH (07:56)
[2017-02-27] MEDS: FINASTERIDE 5 MG TAB PO SCH (07:56)
[2017-02-27] MEDS: TAMSULOSIN HCL 0.4 MG CAP PO SCH ×2 (07:56→21:29)
[2017-02-27] MEDS: CHOLECALCIFEROL 1000 INTER.UNIT TAB PO SCH (07:59)
[2017-02-27] MEDS ORDERED: POTASSIUM CHLORIDE 20 MEQ TABCR PO ONE (09:15)
[2017-02-27] MEDS: LEVOFLOXACIN / D5W 750 MG in PREMIXED IN D5W 150 ML IV SCH (09:44)
--- NOTE | 2017-02-27 09:45 | ECHOCARDIOGRAM REPORT ---
*NOTICE TO RECEIVING [employer] [facility] This information is strictly Confidential and protected under [place] law. [place] law prohibits you from making any further disclosure of this information unless further disclosure is expressly permitted by the written consent of the person to whom it pertains or is authorized by law. A general authorization for the release of medical or other information is not sufficient for this purpose. Hospital accepts no responsibility if the information is made available to any other person, INCLUDING THE PATIENT. Interpretation Summary * Name: MERLYN AUSTIN Study Date: 02/27/2017 06:53 AM BP: 108/53 mmHg * Patient Location: C.2E\S\E210\S\1 HR: 80 * : 1950 (M/d/yyyy) Gender: Male Height: 68 in * Age: 66 yrs Ethnicity: CA Weight: 368 lb * Ordering Physician: Medina Knox * Performed By: Lizeth Rod RDCS * * Reason For Study: ENDOCARDITIS, H/O RHEUMATIC FEVER * BSA: 2.6 m2 * -- Conclusions -- * No comparison study available. * The study was technically difficult. * Aortic valve sclerosis moderate, without significant aortic valvular stenosis. * The left ventricle is grossly normal size. * There is normal left ventricular wall thickness. * Ejection Fraction = 55-60%. * Left ventricular systolic function is normal. * The left ventricular wall motion is normal. * Flattened septum is consistent with RV pressure/volume overload. * The right ventricle is mild to moderately dilated. * There is moderate right ventricular hypertrophy. * The right ventricular systolic function is mild to moderately reduced. * The mitral valve leaflets appear thickened, but open well. * There is mild to moderate mitral annular calcification. * No significant mitral valve stenosis. * The left atrium is moderately dilated. * No obvious valvular disease on technically limited Doppler. If clinical concerns for valvular disease remain, consider transesophageal echocardiogram. Procedure Details * A complete two-dimensional transthoracic echocardiogram was performed (2D, M-mode, Doppler and color flow Doppler). * The study was technically difficult. * There were technical limitations due to patient'sbody habitus * A contrast injection of Definity was performed to improve assessment of LV function. * Contrast was injected into an intravenous site in the right arm. * One vial of Definity ultrasound contrast was diluted in normal saline to a total volume of 10 ml. A total of '5' ml of solution was administered during imaging. * Lot # [id number] of Definity utilized for procedure. * Expiration date 03/15. * The attending nurse who injected the contrast agent was JOS HENRY RN. Left Ventricle * The left ventricle is grossly normal size. * There is normal left ventricular wall thickness. * Ejection Fraction = 55-60%. * Left ventricular systolic function is normal. * The left ventricular wall motion is normal. * Flattened septum is consistent with RV pressure/volume overload. Right Ventricle * The right ventricle is mild to moderately dilated. * There is moderate right ventricular hypertrophy. * The right ventricular systolic function is mild to moderately reduced. Atria * The left atrium is moderately dilated. * Right atrium not well visualized. * There is no evidence of atrial septal defect, but resolution does not allow assessment for a patent foramen ovale. Mitral Valve * The mitral valve leaflets appear thickened, but open well. * There is mild to moderate mitral annular calcification. * No significant mitral valve stenosis. Tricuspid Valve * The tricuspid valve is not well visualized, but is grossly normal. Aortic Valve * Aortic valve sclerosis moderate, without significant aortic valvular stenosis. * There is no aortic valvular vegetation. * No hemodynamically significant valvular aortic stenosis. * There is no significant aortic regurgitation. Pulmonic Valve * The pulmonary valve is inadequately visualized, but the Doppler data is adequate for interpretation. * There is no significant pulmonary regurgitation. Great Vessels * The aortic root is normal size. * No obvious dissection could be visualized. * The pulmonary is not well visualized. Pericardium/Pleural * There is no pericardial effusion. Right Ventricle * The right ventricular wall motion is normal. MMode 2D Measurements and Calculations IVSd 0.76 cm IVSs 1.3 cm LVIDd 5.5 cm LVIDs 3.7 cm LVPWd 0.91 cm LVPWs 1.5 cm IVS/LVPW 0.83 FS 31.7 % EDV(Teich) 145.0 ml ESV(Teich) 59.4 ml EF(Teich) 59.1 % EDV(cubed) 162.9 ml ESV(cubed) 52.0 ml EF(cubed) 68.1 % % IVS thick 72.2 % % LVPW thick 61.7 % LV mass(C)d 166.3 grams LV mass(C)dI 62.8 grams/m\S\2 LV mass(C)s 186.4 grams LV mass(C)sI 70.4 grams/m\S\2 SV(Teich) 85.7 ml SI(Teich) 32.3 ml/m\S\2 SV(cubed) 110.9 ml SI(cubed) 41.9 ml/m\S\2 asc Aorta Diam 3.5 cm LVOT diam 2.3 cm LVOT area 4.1 cm\S\2 LVAd ap4 43.6 cm\S\2 LVLd ap4 10.0 cm EDV(MOD-sp4) 154.4 ml EDV(sp4-el) 161.1 ml LVAs ap4 25.9 cm\S\2 LVLs ap4 8.7 cm ESV(MOD-sp4) 63.7 ml ESV(sp4-el) 65.4 ml EF(MOD-sp4) 58.7 % EF(sp4-el) 59.4 % LVAd ap2 35.8 cm\S\2 LVLd ap2 8.7 cm EDV(MOD-sp2) 118.9 ml EDV(sp2-el) 125.4 ml LVAs ap2 21.3 cm\S\2 LVLs ap2 7.4 cm ESV(MOD-sp2) 52.2 ml ESV(sp2-el) 52.3 ml EF(MOD-sp2) 56.1 % EF(sp2-el) 58.3 % LVLd %diff -15.22 % EDV(MOD-bp) 144.9 ml LVLs %diff -17.60 % ESV(MOD-bp) 62.7 ml EF(MOD-bp) 56.8 % SV(MOD-sp4) 90.7 ml SI(MOD-sp4) 34.2 ml/m\S\2 SV(MOD-sp2) 66.6 ml SI(MOD-sp2) 25.2 ml/m\S\2 SV(MOD-bp) 82.2 ml SI(MOD-bp) 31.0 ml/m\S\2 SV(sp4-el) 95.7 ml SI(sp4-el) 36.1 ml/m\S\2 SV(sp2-el) 73.0 ml SI(sp2-el) 27.6 ml/m\S\2 Doppler Measurements and Calculations MV E max dashawn 116.7 cm/sec MV dec time 0.29 sec Ao V2 max 132.9 cm/sec Ao max PG 7.1 mmHg Ao max PG (full) 3.6 mmHg SOLOMON(V,A) 2.8 cm\S\2 SOLOMON(V,D) 2.8 cm\S\2 LV V1 max PG 3.4 mmHg LV V1 max 92.7 cm/sec PA V2 max 76.0 cm/sec PA max PG 2.3 mmHg
[2017-02-27 11:21] VITALS: BP 116/79; PULSE 90; TEMP 36.4; O2SAT 97
[2017-02-27] MEDS: LACTOBACILLUS ACIDOPHILUS (FLORANEX) TAB PO SCH ×2 (11:40→16:59)
--- NOTE | 2017-02-27 12:16 | PROGRESS NOTE ---
DATE: 02/27/2017 DATE: 02/27/2017 SUBJECTIVE: I reviewed [place] case with our hip specialist, Dr. Yoan Villagomez. Recommendation at this point in time is for additional nutritional evaluation as the patient has significant malnutrition. I ordered sed rate, C-reactive protein, vitamin D, albumin, prealbumin and transferrin levels as well as a dietitian consult. Some consideration will be for interventional radiology guided hip aspiration to see if there is any additional microorganisms in the hip. If the patient is not acutely septic or sick he may follow up with Dr. Villagomez as an outpatient for further discussion of whether or not surgical treatment with removal of prosthesis and placement of antibiotic laden prosthesis would be indicated. We will continue to follow while in the hospital.
--- NOTE | 2017-02-27 13:20 | ORTHOPEDIC CONSULTATION ---
DATE OF CONSULTATION: 02/27/2017 DATE OF CONSULTATION: 02/27/2017 Special attention to right hip, right chronic hip infection. HISTORY OF PRESENT ILLNESS: This is a 66-year-old female status post right total hip replacement by Dr. Felipe Oconnor on 05/08/2016. He subsequently developed infection approximately a month later, taken back to the operating room where irrigation and debridement was performed, antibiotic beads and VAC was placed. Hip components were left in place. He has had persistent chronic infection treated with VAC as well as daily intravenous antibiotics through a Marie catheter. He presents after the past few days with increasing lethargy and subjective fever and chills. He is currently admitted to the medical service with concern for bacteremia. He states over the past 24 hours he feels improvement. PHYSICAL EXAMINATION: GENERAL: The patient is awake, alert and oriented x3, cooperative with the examination. He appears in no acute distress. Right hip exam does show a chronic open wound approximately 6 cm over the lateral aspect of the hip. It is currently packed with wet to dry dressings as VAC was removed yesterday due to nonfunctioning status. He can flex and extend the toes. He has no significant erythema or cellulitis in the right extremity. PAST MEDICAL HISTORY: 1. Obstructive sleep apnea on CPAP. 2. Hypertension. 3. BPH. 4. Gout. 5. GERD. 6. Postoperative DVT, resolved. 7. History of rheumatic fever as a child. 8. History of venous insufficiency. 9. Obesity. 10. Hypogonadism and low testosterone. SOCIAL HISTORY: Does not currently smoke. Review of radiograph does show a tapered stem in place in the right hip. There is slight lucent area seen on radiograph. Review of CAT scan does not definitive evidence of osteomyelitic lesion. ASSESSMENT: A 66-year-old male with: 1. Right hip status post total hip replacement with chronic infection. 2. Obesity and malnutrition. 3. Current Marie catheter. PLAN: I discussed treatment options with him. At this point in time he does appear to be improving with antibiotics. I feel he would be best served by evaluation by hip specialist Dr. Villagomez. I will discuss the case further with him to determine whether or not any further surgical indication would be indicated. At this point today will not plan for any surgical treatment but will further evaluate and continue to follow the patient. Will continue multiple antibiotics as per infectious disease.
[2017-02-27] MEDS ORDERED: NURSING VERBAL MED ORDER ONE ×2 (15:15→18:30)
[2017-02-27 16:00] VITALS: O2SAT 95
[2017-02-27 16:06] VITALS: BP 117/64; PULSE 91; TEMP 36.9; O2SAT 95
--- NOTE | 2017-02-27 16:07 | Medical Consult ---
Consultation Date of Consultation: Feb 27, 2017. Attending Physician: Delano Matos MD Reason for Consultation: Failure of triple antibiotic therapy, possible line infection History of Present Illness 66-year-old male well known to the Infectious Disease service with history of chronically infected right SURJIT, who was on prolonged course of IV antibiotics with daptomycin and ertapenem. Subsequently developed bacteremia with stenotrophomonas, and levofloxacin was added last week. However has persistent positive blood cultures in now admitted for further management. Patient currently on levofloxacin and imipenem and feeling better today. Temperature is down. Tolerating antibiotic without apparent difficulty. Continues with open wound right hip, no significant erythema. Pain is minimal at present. Past Medical/Surgical History Medical Problems: (1) Febrile illness Status: Acute (2) Postoperative wound infection of right hip Status: Acute (3) Unspecified open wound, right hip, sequela Status: Acute Medical Problems: (1) Bacteremia (2) Knee pain (3) Positive blood culture (4) Post op infection (5) Right Hip Wound Drainage Surgical Problems: (1) Post-operative state (2) Post-operative state Family History Heart Disease Hypertension Parkinson's Disease Social History Smoking Status: Never Smoker Alcohol Use: none Drug Use: none Marital Status: Housing Status: lives with family Occupation Status: retired Allergies Coded Allergies: No Known Allergies (Unverified , 02/26/17) Current Inpatient Medications Current Inpatient Medications Medications (Trade) Dose Ordered Sig/Chris Route Start Time Stop Time Status Last Admin Dose Admin Sodium Chloride 1,000 ml @ 80 mls/hr [id number] IV 02/26/17 16:20 03/28/17 16:19 02/27/17 06:27 80 MLS/HR Acetaminophen (Tylenol Tab) 650 mg Q4H PRN PO 02/26/17 14:00 03/28/17 13:59 Al Hydrox/Mg Hydrox/Simethicone (Maalox Max Susp) 15 ml Q4H PRN PO 02/26/17 14:00 03/28/17 13:59 02/26/17 23:19 15 ML Magnesium Hydroxide (Milk Of Magnesia Susp) 30 ml Q12H PRN PO 02/26/17 14:00 03/28/17 13:59 Ondansetron HCl (Zofran Inj) 4 mg Q6H PRN IV 02/26/17 14:00 03/28/17 13:59 Polyethylene (Miralax Powder Packet) 17 gm DAILY PRN PO 02/26/17 14:00 03/28/17 13:59 Allopurinol (Zyloprim Tab) 300 mg QAM PO 02/27/17 09:00 03/29/17 08:59 02/27/17 07:56 300 MG Finasteride (Proscar Tab) 5 mg QAM PO 02/27/17 09:00 03/29/17 08:59 02/27/17 07:56 5 MG HCTZ/Losartan Potassium (Hyzaar 50-12.5 Tab) 1 tab QAM PO 02/27/17 09:00 03/29/17 08:59 02/27/17 07:56 1 TAB Nortriptyline HCl (Pamelor Cap) 20 mg HS PO 02/26/17 21:00 03/28/17 20:59 02/26/17 19:54 20 MG Oxycodone HCl (Roxicodone Immediate Rel Tab) 10 mg TID PRN PO 02/26/17 14:00 03/12/17 13:59 Tamsulosin HCl (Flomax Cap) 0.4 mg BID PO 02/26/17 21:00 03/28/17 20:59 02/27/17 07:56 0.4 MG Cholecalciferol (Vitamin D Tab) 2,000 inter.unit QAM PO 02/27/17 09:00 03/29/17 08:59 02/27/17 07:59 2,000 INTER.UNIT Cyanocobalamin (Vitamin B-12 Tab) 1,000 mcg QAM PO 02/27/17 09:00 03/29/17 08:59 02/27/17 07:56 1,000 MCG Acetaminophen (Tylenol Tab) 1,000 mg BID PO 02/26/17 21:00 03/28/17 20:59 02/27/17 07:56 1,000 MG Imipenem/ Cilastatin Sodium (Consult) 1 ea UD N/A 02/26/17 14:52 03/28/17 14:51 Hydralazine HCl (HydrALAZINE INJ) 10 mg Q6 PRN IV. 02/26/17 14:30 03/28/17 14:29 Imipenem/ Cilastatin Sodium 1000 mg/Dextrose 270 ml @ 250 mls/hr Q8H IV 02/26/17 18:00 03/12/17 17:59 02/27/17 09:43 250 MLS/HR Heparin Sodium (Porcine) (Heparin 10 Unit/ ml 5 ml Flush) 5 ml PRN PRN FLUSH 02/27/17 03:00 03/29/17 02:59 Levofloxacin 750 mg/Prmx 150 ml @ 100 mls/hr Q24H IV 02/27/17 10:00 03/13/17 09:59 02/27/17 09:44 100 MLS/HR Lactobacillus Acidophilus (Floranex Tab) 4 tab TIDM PO 02/27/17 11:30 03/29/17 11:29 02/27/17 11:40 4 TAB Potassium Chloride (Klor-Con Tab) 20 meq BID PO 02/27/17 21:00 03/29/17 20:59 Enteral Nutritional Formula (Prosource No Carb) 30 ml TID PO 02/27/17 21:00 03/29/17 20:59 UNV Review of Systems All systems were reviewed and are negative except as per HPI Physical Exam Date Time Temp Pulse Resp B/P (MAP) Pulse Ox O2 Delivery O2 Flow Rate FiO2 02/27/17 12:00 Room Air 02/27/17 11:21 36.4 90 18 116/79 (91) 97 Room Air 02/27/17 08:00 Room Air 02/27/17 07:45 36.7 87 18 130/77 (94) 99 Room Air 02/27/17 04:00 Room Air 02/27/17 03:55 37.0 80 20 108/53 (71) 97 CPAP 02/26/17 23:59 Room Air 02/26/17 23:54 36.8 82 16 97/49 (65) 94 Room Air 02/26/17 20:00 91 Room Air 02/26/17 19:33 36.3 101 20 120/82 (95) 91 Room Air General Appearance: WD/WN, no apparent distress, + obese Head: normocephalic, atraumatic Eyes: normal inspection, EOMI, sclerae normal ENT: normal ENT inspection, pharynx normal Neck: supple, no adenopathy, thyroid normal, trachea midline Respiratory/Chest: chest non-tender, lungs clear, normal breath sounds, no respiratory distress Cardiovascular: regular rate, rhythm, no gallop, no murmur Abdomen/GI: normal bowel sounds, non tender, soft, no organomegaly Back: normal inspection, no CVA tenderness Extremities/Musculoskelatal: no calf tenderness, normal capillary refill Neurologic/Psych: alert, oriented x 3 Skin: normal color, no rash, + pertinent finding (Open wound right hip, no significant cellulitis, Marie site appears clean) Lymphatic: no adenopathy Laboratory Results RUN DATE: 02/27/17 [facility] LAB PAGE 1 RUN TIME: 425 Specimen Inquiry PATIENT: MERLYN AUSTIN LOC: [facility] U # : [id number] AGE/SX: 66/M ROOM: 10 REG : 02/26/[address]: Theo Brandon M.D. : 1950 BED: 1 DIS : STATUS: ADM IN TLOC: SPEC #: [id number] CESIA: 02/26/17 STATUS: RES REQ #: [id number] RECD: 02/26/[address]: Hernandez Rosa MD SOURCE: BLOOD ENTR: 02/26/17-[address]: No Doctor, [facility] ORDERED: BLOOD CULTURE COMMENTS: Comments to [place] Folder from [facility]ip[facility] Specimen Comment from [facility], other two are peripheral Drawn from PORT per protocol. Discarded UNK cc. LV 1132 Procedure Result Verified Site BLD CULT Preliminary 02/27/17-0426 Organism 1 GRAM NEGATIVE BACILLI SENS SENSITIVITIES DEPENDENT ON FURTHER IDENTIFICATION Phoned Positive Blood Culture Gram Stain Report to NATHANAEL CASTANO on 02/27/17 At 0425 By TANIA. Results were verbalized back to TANIA. Last 24 Hours Test 02/27/17 05:45 02/27/17 11:34 02/27/17 11:58 White Blood Count 9.74 K/uL Red Blood Count 4.45 M/uL Hemoglobin 11.2 g/dL Hematocrit 34.8 % Mean Corpuscular Volume 78.2 fL Mean Corpuscular Hemoglobin 25.2 pg Mean Corpuscular Hemoglobin Concent 32.2 g/dl Platelet Count 196 K/uL Mean Platelet Volume 9.7 fL Neutrophils (%) (Auto) 64.0 % Lymphocytes (%) (Auto) 16.8 % Monocytes (%) (Auto) 17.6 % Eosinophils (%) (Auto) 0.9 % Basophils (%) (Auto) 0.4 % Neutrophils # (Auto) 6.23 K/uL Lymphocytes # (Auto) 1.64 K/uL Monocytes # (Auto) 1.71 K/uL Eosinophils # (Auto) 0.09 K/uL Basophils # (Auto) 0.04 K/uL RDW Standard Deviation 45.4 fL RDW Coefficient of Variation 15.8 % Immature Granulocyte % (Auto) 0.3 % Immature Granulocyte # (Auto) 0.03 K/uL Sodium Level 135 mmol/L Potassium Level 3.4 mmol/L Chloride Level 102 mmol/L Carbon Dioxide Level 28 mmol/L Anion Gap 5.0 mmol/L Blood Urea Nitrogen 15 mg/dl Creatinine 0.71 mg/dl Est Creatinine Clear Calc Drug Dose 159.4 ml/min Estimated GFR () 112.5 Estimated GFR (Non- 97.1 BUN/Creatinine Ratio 21.0 Random Glucose 103 mg/dl Calcium Level 7.8 mg/dl Magnesium Level 2.0 mg/dl Transferrin % Saturation % Erythrocyte Sedimentation Rate 29 mm/hr Transferrin 223 mg/dl C-Reactive Protein 15.60 mg/dl Albumin 2.7 gm/dl Prealbumin 12.0 mg/dl 25-Hydroxy Vitamin D Total 20.6 ng/ml Assessment & Plan Patient likely with persistent stenotrophomonas bacteremia, which will likely necessitate removal of his Marie catheter as no evidence worsening left hip infection. Given clinical improvement, would continue patient on present antibiotics pending final identification and sensitivities of blood isolate. Will need follow-up cultures to ensure clearance of bacteremia. Would recommend surgical consultation for possible catheter removal. Will follow.
[2017-02-27 19:57] VITALS: BP 120/80; PULSE 94; TEMP 36.9; O2SAT 96
--- NOTE | 2017-02-27 20:44 | Progress Note ---
Subjective Date of Service: Feb 27, 2017. Subjective Pt evaluation today including: conversation w/ patient, physical exam, chart review, lab review, review of studies (echo, blood cx's ), review of inpatient medication list Pain: right hip - chronic, no worse than usual PO Intake: improved Voiding: no voiding problems tele stable overnight "I feel better today" no fever/chills this AM h/o SABRINA on CPAP for at least 20 years reports he started oral levaquin on Wednesday of this week Problem List Medical Problems: (1) Febrile illness Status: Acute (2) Postoperative wound infection of right hip Status: Acute (3) Unspecified open wound, right hip, sequela Status: Acute Review of Systems Respiratory: No shortness of breath Cardiac: No chest pain Abdomen: No pain Objective Vital Signs Date Time Temp Pulse Resp B/P (MAP) Pulse Ox O2 Delivery O2 Flow Rate FiO2 02/27/17 20:00 Room Air 02/27/17 19:57 36.9 94 20 120/80 (93) 96 Room Air 02/27/17 16:06 36.9 91 20 117/64 (81) 95 Room Air 02/27/17 16:00 95 Room Air 02/27/17 12:00 Room Air 02/27/17 11:21 36.4 90 18 116/79 (91) 97 Room Air 02/27/17 08:00 Room Air 02/27/17 07:45 36.7 87 18 130/77 (94) 99 Room Air 02/27/17 04:00 Room Air 02/27/17 03:55 37.0 80 20 108/53 (71) 97 CPAP 02/26/17 23:59 Room Air 02/26/17 23:54 36.8 82 16 97/49 (65) 94 Room Air Physical Exam General Appearance: no apparent distress, + obese ENT: pharynx normal Neck: no JVD Respiratory/Chest: lungs clear, no respiratory distress, no accessory muscle use Cardiovascular: regular rate, rhythm, no gallop, no murmur Abdomen: normal bowel sounds, non tender, soft, no organomegaly Extremities: no pedal edema Neurologic/Psychiatric: alert, oriented x 3 Skin: + pertinent finding (stasis changes b/l shins; no splinter hemorrhages of fingers; right hip - large ulcer/wound of lateral hip, mild drainage w/o odor , no surrounding erythema ) Laboratory Results Last 24 Hours Test 02/27/17 05:45 02/27/17 11:34 02/27/17 11:58 White Blood Count 9.74 K/uL Red Blood Count 4.45 M/uL Hemoglobin 11.2 g/dL Hematocrit 34.8 % Mean Corpuscular Volume 78.2 fL Mean Corpuscular Hemoglobin 25.2 pg Mean Corpuscular Hemoglobin Concent 32.2 g/dl Platelet Count 196 K/uL Mean Platelet Volume 9.7 fL Neutrophils (%) (Auto) 64.0 % Lymphocytes (%) (Auto) 16.8 % Monocytes (%) (Auto) 17.6 % Eosinophils (%) (Auto) 0.9 % Basophils (%) (Auto) 0.4 % Neutrophils # (Auto) 6.23 K/uL Lymphocytes # (Auto) 1.64 K/uL Monocytes # (Auto) 1.71 K/uL Eosinophils # (Auto) 0.09 K/uL Basophils # (Auto) 0.04 K/uL RDW Standard Deviation 45.4 fL RDW Coefficient of Variation 15.8 % Immature Granulocyte % (Auto) 0.3 % Immature Granulocyte # (Auto) 0.03 K/uL Sodium Level 135 mmol/L Potassium Level 3.4 mmol/L Chloride Level 102 mmol/L Carbon Dioxide Level 28 mmol/L Anion Gap 5.0 mmol/L Blood Urea Nitrogen 15 mg/dl Creatinine 0.71 mg/dl Est Creatinine Clear Calc Drug Dose 159.4 ml/min Estimated GFR () 112.5 Estimated GFR (Non- 97.1 BUN/Creatinine Ratio 21.0 Random Glucose 103 mg/dl Calcium Level 7.8 mg/dl Magnesium Level 2.0 mg/dl Transferrin % Saturation % Erythrocyte Sedimentation Rate 29 mm/hr Transferrin 223 mg/dl C-Reactive Protein 15.60 mg/dl Albumin 2.7 gm/dl Prealbumin 12.0 mg/dl 25-Hydroxy Vitamin D Total 20.6 ng/ml Assessment and Plan 66yo male - 1. stenotrophomonas bacteremia - source is either the anton central line or the right hip. I suspect it is the central line. The cultures drawn on 02/26/17 are ONLY POSITIVE FROM THE ANTON, not the periphery, suggesting the line is the culprit. Added levaquin 750mg IV daily today in addition to the imipenem. ID consult pending. ECHO w/o obvious vegetations. Draw 1 set of blood cultures from line in AM. 2. hypokalemia - replace, repeat level in AM. 3. h/o rheumatic fever as child - noted. No mitral stenosis seen on echo. 4. chronic cor pulmonale / RV failure - I discussed this with the patient today. He has NO evidence of decompensation. Perhaps he has this due to chronic SABRINA but he has had treatment for such over the last 20 years w/ CPAP. Chronic PEs then? other cause? He does not appear to have underlying lung disease such as ILD, etc. Will need more investigation. 5. SABRINA - CPAP. 6. HTN - controlled. 7. 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 Management per ortho & ID. Appreciate both consultants & their recommendations. Agree with ID that the cause of stenotrophomonas bacteremia is unlikely to be the hip. 8. morbid obesity with BMI 57 9. FEN - d/c fluids. replace K. repeat BMP am. 10. BPH - continue outpatient meds. 11. DVT proph - add lovenox daily. Continued [facility] stay due to: multiple IV medications needed
[2017-02-27] MEDS: NORTRIPTYLINE HCL 10 MG CAP PO SCH (21:29)
[2017-02-27] MEDS: POTASSIUM CHLORIDE 20 MEQ TABCR PO SCH (21:30)
[2017-02-27] MEDS ORDERED: ENOXAPARIN 40 MG/0.4 ML SYR SQ ONE (21:30)
[2017-02-27] MEDS: PROSOURCE NOCARB 30ML/PKT PO SCH (21:31)
[2017-02-27] MEDS: ALUMINUM/MAGNESIUM/SIMETH (MAALOX MAX) 30 ML UDC PO PRN (21:36)
[2017-02-28] VITALS (7 sets, daily range): BP systolic 111–139; BP diastolic 58–97; PULSE 87–104; TEMP 36.5–37; O2SAT 97–98
[2017-02-28] MEDS: IMIPENEM/CILASTATIN IV 1,000 MG in DEXTROSE 5% 250ML 250 ML IV SCH ×3 (02:27→18:18)
[2017-02-28 07:32] LABS: BUN/CREATININE RATIO 20.5 (10-20); CALCIUM 8.5 mg/dl (8.5-10.1); CREATININE 0.79 mg/dl (0.60-1.40); POTASSIUM 3.8 mmol/L (3.5-5.1)
[2017-02-28] MEDS: ALLOPURINOL 300 MG TAB PO SCH (08:47)
[2017-02-28] MEDS: PROSOURCE NOCARB 30ML/PKT PO SCH ×3 (08:47→20:00)
[2017-02-28] MEDS: CYANOCOBALAMIN 500 MCG TAB (VIT B-12) PO SCH (08:47)
[2017-02-28] MEDS: CHOLECALCIFEROL 1000 INTER.UNIT TAB PO SCH (08:47)
[2017-02-28] MEDS: LACTOBACILLUS ACIDOPHILUS (FLORANEX) TAB PO SCH ×3 (08:48→18:19)
[2017-02-28] MEDS: LOSARTAN/HCTZ 50-12.5 EA TAB PO SCH (08:48)
[2017-02-28] MEDS: ACETAMINOPHEN 500 MG TAB PO SCH ×2 (08:48→20:36)
[2017-02-28] MEDS: POTASSIUM CHLORIDE 20 MEQ TABCR PO SCH ×2 (08:48→20:38)
[2017-02-28] MEDS: TAMSULOSIN HCL 0.4 MG CAP PO SCH ×2 (08:49→20:37)
[2017-02-28] MEDS: FINASTERIDE 5 MG TAB PO SCH (08:49)
[2017-02-28] MEDS: LEVOFLOXACIN / D5W 750 MG in PREMIXED IN D5W 150 ML IV SCH (10:11)
--- NOTE | 2017-02-28 11:22 | Orthopedic Progress Note ---
Orthopedic Progress Note Date of Service Feb 28, 2017. Subjective Reports: feeling well, Denies: chest pain, SOB, nausea / vomiting, light headedness, calf pain Objective calves soft nontender, N/V intact, capillary refill less than 2 sec., dressing C /D/I, A&O x3, toes mobile Date Time Temp Pulse Resp B/P (MAP) Pulse Ox O2 Delivery O2 Flow Rate FiO2 02/28/17 07:24 36.7 91 20 124/81 (95) 98 Room Air 02/28/17 04:21 36.9 90 19 124/66 (85) 98 CPAP 02/28/17 04:00 98 CPAP 02/28/17 00:00 36.5 87 111/58 (75) 97 CPAP 02/28/17 00:00 97 CPAP 02/27/17 20:00 Room Air 02/27/17 19:57 36.9 94 20 120/80 (93) 96 Room Air 02/27/17 16:06 36.9 91 20 117/64 (81) 95 Room Air 02/27/17 16:00 95 Room Air 02/27/17 12:00 Room Air 02/27/17 11:21 36.4 90 18 116/79 (91) 97 Room Air Inhouse Planning Pain Management: Oxycontin, PO Tylenol DVT Prophylaxis: TEDs, SCDs, Lovenox Discharge Planning Discharge Planning: uncertain Discharge Planning Notes: spoke with Dr. Singh today. He will be in to see patient tomorrow if patient still inpatient otherwise will follow up in the office.
[2017-02-28] MEDS: ENOXAPARIN 40 MG/0.4 ML SYR SQ SCH (20:35)
[2017-02-28] MEDS: NORTRIPTYLINE HCL 10 MG CAP PO SCH (20:38)
[2017-03-01 01:15] VITALS: BP 120/77; PULSE 89; TEMP 37; O2SAT 96
[2017-03-01 03:54] VITALS: BP 125/77; PULSE 84; TEMP 36.8; O2SAT 97
--- NOTE | 2017-03-01 05:04 | Progress Note ---
Subjective Date of Service: late entry for visit Feb 28, 2017. Subjective Pt evaluation today including: conversation w/ patient, physical exam, chart review, lab review, review of studies (blood cx's), review of inpatient medication list Pain: right hip - chronic, no change PO Intake: normal/good Voiding: no voiding problems tele stable overnight feels good no new complaints no fevers or chills blood cx's have returned + for GNR once again Problem List Medical Problems: (1) Febrile illness Status: Acute (2) Postoperative wound infection of right hip Status: Acute (3) Unspecified open wound, right hip, sequela Status: Acute Review of Systems Constitutional: No fever, No chills Respiratory: No cough, No shortness of breath, No dyspnea on exertion Cardiac: No chest pain Abdomen: No pain Objective Vital Signs Date Time Temp Pulse Resp B/P (MAP) Pulse Ox O2 Delivery O2 Flow Rate FiO2 03/01/17 03:54 36.8 84 18 125/77 (93) 97 03/01/17 01:15 37.0 89 18 120/77 (91) 96 02/28/17 15:46 37.0 104 18 135/78 (97) 97 Room Air 02/28/17 15:00 Room Air 02/28/17 14:50 36.7 101 20 97 02/28/17 12:00 Room Air 02/28/17 11:34 36.7 101 20 139/97 (111) 97 Room Air 02/28/17 08:00 Room Air 02/28/17 07:24 36.7 91 20 124/81 (95) 98 Room Air Physical Exam General Appearance: no apparent distress, + obese ENT: pharynx normal Neck: no JVD Respiratory/Chest: lungs clear, no respiratory distress, no accessory muscle use Cardiovascular: regular rate, rhythm, no gallop, no murmur Abdomen: normal bowel sounds, non tender, soft, no organomegaly Extremities: no pedal edema Neurologic/Psychiatric: alert, oriented x 3 Skin: + pertinent finding (stasis changes b/l shins; tinea pedis b/l feet and severe onychomycosis all toenails) Laboratory Results Last 24 Hours Test 02/28/17 06:37 03/01/17 04:44 Sodium Level 135 mmol/L Potassium Level 3.8 mmol/L Chloride Level 103 mmol/L Carbon Dioxide Level 25 mmol/L Anion Gap 7.0 mmol/L Blood Urea Nitrogen 16 mg/dl Creatinine 0.79 mg/dl Est Creatinine Clear Calc Drug Dose 141.5 ml/min Estimated GFR () 107.7 Estimated GFR (Non- 92.9 BUN/Creatinine Ratio 20.5 Random Glucose 133 mg/dl Calcium Level 8.5 mg/dl Assessment and Plan 66yo male - 1. stenotrophomonas bacteremia - source is either the marie central line or the right hip. Marie catheter is suspected, however. Continues on IV levaquin for stenotrophomonas as well as imipenem. ID consult appreciated. ECHO w/o obvious vegetations. Fortunately, despite persistently positive blood cx's, he is afebrile & feels well. Gen surg consulted for Wednesday AM to remove line. NPO after MN for such. 2. hypokalemia - replaced, resolved. 3. h/o rheumatic fever as child - noted. No mitral stenosis seen on echo. 4. chronic cor pulmonale / RV failure - I discussed this with the patient again today. He has NO evidence of decompensation. Perhaps he has this due to chronic SABRINA but he has had treatment for such over the last 20 years w/ CPAP. He does not appear to have underlying lung disease such as ILD, etc. He has no symptoms to suggest chronic VTE but that is possible. Could consider v/q scan. Recommend cardiology follow-up for this. 5. SABRINA - CPAP. Follows with Dr. Gilliam; recently had sleep study and is on proper CPAP settings. 6. HTN - controlled. 7. 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 Management per ortho & ID. Appreciate both consultants & their recommendations. Agree with ID that the cause of stenotrophomonas bacteremia is unlikely to be the hip. 8. morbid obesity with BMI 57 9. FEN - bmp am. Eating fine. 10. BPH - continue outpatient meds. 11. DVT proph - lovenox daily. d/c tele move to med/surg NPO after MN tonight Continued [facility] stay due to: multiple IV medications needed
[2017-03-01 06:00] LABS: BASO % 0.7 %; BASO ABS # 0.04 K/uL (0-0.2); COMPLETE YES; EOS % 1.5 %; HEMATOCRIT 36.2 % (42-52); IG% 0.8 %; LYMPH % 25.2 %; LYMPH ABS # 1.55 K/uL (1.2-3.4); MEAN CELL VOLUME 77.7 fL (80-100); MEAN CORPUSCULAR HEMOGLOBIN 25.5 pg (25-34); MEAN CORPUSCULAR HGB CONC 32.9 g/dl (32-36); MEAN PLATELET VOLUME 9.7 fL (7.4-10.4); NEUT % 58.8 %; PLATELET COUNT 224 K/uL (130-400); RED BLOOD COUNT 4.66 M/uL (4.7-6.1); WHITE BLOOD COUNT 6.15 K/uL (4.8-10.8)
[2017-03-01 06:31] LABS: BUN/CREATININE RATIO 21.3 (10-20); CALCIUM 8.5 mg/dl (8.5-10.1); CREATININE 0.79 mg/dl (0.60-1.40); POTASSIUM 3.9 mmol/L (3.5-5.1)
[2017-03-01 07:10] VITALS: BP 118/79; PULSE 92; TEMP 36.7; O2SAT 96
[2017-03-01] MEDS: PROSOURCE NOCARB 30ML/PKT PO SCH ×3 (08:00→20:56)
[2017-03-01] MEDS: ALLOPURINOL 300 MG TAB PO SCH (08:45)
[2017-03-01] MEDS: CHOLECALCIFEROL 1000 INTER.UNIT TAB PO SCH (08:46)
[2017-03-01] MEDS: CYANOCOBALAMIN 500 MCG TAB (VIT B-12) PO SCH (08:46)
[2017-03-01] MEDS: TAMSULOSIN HCL 0.4 MG CAP PO SCH ×2 (08:47→20:56)
[2017-03-01] MEDS: LACTOBACILLUS ACIDOPHILUS (FLORANEX) TAB PO SCH ×3 (08:47→20:55)
[2017-03-01] MEDS: KETOCONAZOLE 2% CR 15 GM TUBE EXT SCH ×2 (08:48→20:00)
[2017-03-01] MEDS: FINASTERIDE 5 MG TAB PO SCH (08:48)
[2017-03-01] MEDS: POTASSIUM CHLORIDE 20 MEQ TABCR PO SCH ×2 (08:48→20:58)
[2017-03-01] MEDS: LOSARTAN/HCTZ 50-12.5 EA TAB PO SCH (08:49)
[2017-03-01] MEDS: IMIPENEM/CILASTATIN IV 1,000 MG in DEXTROSE 5% 250ML 250 ML IV SCH ×3 (08:53→20:55)
[2017-03-01] MEDS: ACETAMINOPHEN 500 MG TAB PO SCH ×2 (08:54→20:58)
[2017-03-01] MEDS: LEVOFLOXACIN / D5W 750 MG in PREMIXED IN D5W 150 ML IV SCH (10:13)
--- NOTE | 2017-03-01 10:55 | Surgery Consultation ---
Consultation Date of Consultation: Mar 01, 2017. Attending Physician: Delano Matos MD History of Present Illness Mr. Lopez is a 66 y/o male with PMHx of SABRINA on CPAP, HTN, BPH, Gout, GERD, Venous Insufficiency, Rheumatic Fever (Childhood), S/P R TKA, S/P R SURJIT with poor wound healing, and ongoing Bacteremia who presents to the ED c/o fever/ chills and generalized weakness x 2 days. Patient underwent SURJIT on 05/08/[address] Oconnor. In May, he developed pain and had a revision and abx bead therapy. He subsequently developed abscesses. He was admitted in July 2016 for worsening of these symptoms. He was placed on Dapto, Zosyn, and Cipro at time of discharge. He currently is on Daptomycin, Invanz, and Levaquin and has wound vac in place. He states he has been feeling overall well but has been struggling with the non-healing wound of his hip x 1 month. However, he states he fever/chills and generalized weakness started Wednesday. He is reporting malaise and sleeping most of the day. He had some dyspepsia yesterday that is currently resolved. He also reports increased tenderness and edema of the hip. He had BCx on 02/08 that revealed one to have no growth and 1 cx with stenotrophomonas maltophilia. Patient reports they took one cx from arm and one from port but reports do not specify site. He had repeat cultures on 02/15 that revealed the same organism and he states this was drawn from the port. I got a call to remove the florentino catheter, base on blood culture positive G- Bacilli, pt feels better since admission, I reviewed pt's H/P at pt's bedside, Past Medical/Surgical History Medical Problems: (1) Febrile illness Status: Acute (2) Postoperative wound infection of right hip Status: Acute (3) Unspecified open wound, right hip, sequela Status: Acute Family History Heart Disease Hypertension Parkinson's Disease Social History Smoking Status: Never Smoker Alcohol Use: none Drug Use: none Marital Status: Housing Status: lives with family Occupation Status: retired Allergies Coded Allergies: No Known Allergies (Unverified , 02/26/17) Home Medications Scheduled Acetaminophen (Tylenol), 1,000 MG PO DIRECTED Allopurinol (Zyloprim), 300 MG PO QAM Cholecalciferol (Vitamin D3), 1 CAP PO QAM Cyanocobalamin (B-12), 1,000 MCG PO QAM Daptomycin (Daptomycin), 900 MG IV DAILY Ertapenem Sodium (Invanz), 1 GM IV DAILY Finasteride (Proscar), 5 MG PO QAM Hctz/Losartan (Hyzaar 12.5MG/50MG), 1 TAB PO QAM Levofloxacin (Levaquin), 500 MG PO QAM Nortriptyline (Pamelor), 20 MG PO HS Tamsulosin HCl (Tamsulosin HCl), 1 CAP PO BID Scheduled PRN Oxycodone Ir (Roxicodone Ir), 10 MG PO TID PRN for Pain Current Inpatient Medications Current Inpatient Medications Medications (Trade) Dose Ordered Sig/Chris Route Start Time Stop Time Status Last Admin Dose Admin Acetaminophen (Tylenol Tab) 650 mg Q4H PRN PO 02/26/17 14:00 03/28/17 13:59 Al Hydrox/Mg Hydrox/Simethicone (Maalox Max Susp) 15 ml Q4H PRN PO 02/26/17 14:00 03/28/17 13:59 02/27/17 21:36 15 ML Magnesium Hydroxide (Milk Of Magnesia Susp) 30 ml Q12H PRN PO 02/26/17 14:00 03/28/17 13:59 Ondansetron HCl (Zofran Inj) 4 mg Q6H PRN IV 02/26/17 14:00 03/28/17 13:59 Polyethylene (Miralax Powder Packet) 17 gm DAILY PRN PO 02/26/17 14:00 03/28/17 13:59 Allopurinol (Zyloprim Tab) 300 mg QAM PO 02/27/17 09:00 03/29/17 08:59 03/01/17 08:45 300 MG Finasteride (Proscar Tab) 5 mg QAM PO 02/27/17 09:00 03/29/17 08:59 03/01/17 08:48 5 MG HCTZ/Losartan Potassium (Hyzaar 50-12.5 Tab) 1 tab QAM PO 02/27/17 09:00 03/29/17 08:59 03/01/17 08:49 1 TAB Nortriptyline HCl (Pamelor Cap) 20 mg HS PO 02/26/17 21:00 03/28/17 20:59 02/28/17 20:38 20 MG Oxycodone HCl (Roxicodone Immediate Rel Tab) 10 mg TID PRN PO 02/26/17 14:00 03/12/17 13:59 Tamsulosin HCl (Flomax Cap) 0.4 mg BID PO 02/26/17 21:00 03/28/17 20:59 03/01/17 08:47 0.4 MG Cholecalciferol (Vitamin D Tab) 2,000 inter.unit QAM PO 02/27/17 09:00 03/29/17 08:59 03/01/17 08:46 2,000 INTER.UNIT Cyanocobalamin (Vitamin B-12 Tab) 1,000 mcg QAM PO 02/27/17 09:00 03/29/17 08:59 03/01/17 08:46 1,000 MCG Acetaminophen (Tylenol Tab) 1,000 mg BID PO 02/26/17 21:00 03/28/17 20:59 03/01/17 08:54 1,000 MG Imipenem/ Cilastatin Sodium (Consult) 1 ea UD N/A 02/26/17 14:52 03/28/17 14:51 Hydralazine HCl (HydrALAZINE INJ) 10 mg Q6 PRN IV. 02/26/17 14:30 03/28/17 14:29 Imipenem/ Cilastatin Sodium 1000 mg/Dextrose 270 ml @ 250 mls/hr Q8H IV 02/26/17 18:00 03/12/17 17:59 03/01/17 09:17 250 MLS/HR Heparin Sodium (Porcine) (Heparin 10 Unit/ ml 5 ml Flush) 5 ml PRN PRN FLUSH 02/27/17 03:00 03/29/17 02:59 03/01/17 05:39 5 ML Levofloxacin 750 mg/Prmx 150 ml @ 100 mls/hr Q24H IV 02/27/17 10:00 03/13/17 09:59 03/01/17 10:13 100 MLS/HR Lactobacillus Acidophilus (Floranex Tab) 4 tab TIDM PO 02/27/17 11:30 03/29/17 11:29 03/01/17 08:47 4 TAB Potassium Chloride (Klor-Con Tab) 20 meq BID PO 02/27/17 21:00 03/29/17 20:59 03/01/17 08:48 20 MEQ Enteral Nutritional Formula (Prosource No Carb) 30 ml TID PO 02/27/17 21:00 03/29/17 20:59 02/28/17 14:21 30 ML Enoxaparin Sodium (Lovenox Inj) 40 mg DAILY@2100 SQ 02/28/17 21:00 03/30/17 20:59 02/28/17 20:35 40 MG Ketoconazole (Nizoral 2% Crm) 1 appln BID EXT 03/01/17 08:00 03/11/17 07:59 03/01/17 08:48 1 APPLN Review of Systems Constitutional: + fever, + chills, + weakness, + problem reported (obesity) Eyes: No worsening of vision, No eye pain, No redness, No discharge, No diplopia, No problem reported ENT: No hearing loss, No unusual epistaxis, No nasal symptoms, No sore throat, No tinnitus, No dental problems, No trouble swallowing, No problem reported Respiratory: No cough, No sputum, No wheezing, No shortness of breath, No dyspnea on exertion, No dyspnea at rest, No hemoptysis, No problem reported Cardiovascular: No chest pain, No orthopnea, No PND, No edema, No claudication , No palpitations, No problem reported Abdomen: No pain, No nausea, No vomiting, No diarrhea, No constipation, No GI bleeding, No problem reported Musculoskeletal: + joint pain, + problem reported (kip infection, ) Genitourinary - Male: No hematuria, No dysuria, No urinary frequency, No urinary urgency, No urinary hesitancy, No urinary retention, No urinary incontinence, No penile discharge, No lesions, No impotence, No problem reported Neurologic: No memory loss, No paralysis, No weakness, No numbness/tingling, No vertigo, No balance problems, No problem reported Psychiatric: No depression symptoms, No anhedonism, No anxiety, No insomnia, No substance abuse, No problem reported Endocrine: No fatigue, No excessive thirst, No excessive urination, No problem reported Hematologic / Lymphatic: No abnormal bleeding/bruising, No clotting problems, No swollen lymph nodes, No night sweats, No problem reported Physical Exam Date Time Temp Pulse Resp B/P (MAP) Pulse Ox O2 Delivery O2 Flow Rate FiO2 03/01/17 07:10 36.7 92 18 118/79 (92) 96 Room Air 03/01/17 03:54 36.8 84 18 125/77 (93) 97 03/01/17 01:15 37.0 89 18 120/77 (91) 96 03/01/17 00:05 Room Air 02/28/17 20:05 Room Air 02/28/17 15:46 37.0 104 18 135/78 (97) 97 Room Air 02/28/17 15:00 Room Air 02/28/17 14:50 36.7 101 20 97 02/28/17 12:00 Room Air 02/28/17 11:34 36.7 101 20 139/97 (111) 97 Room Air General Appearance: WD/WN, no apparent distress Head: normocephalic Eyes: normal inspection ENT: normal ENT inspection Neck: supple, no adenopathy, no JVD Respiratory/Chest: chest non-tender, lungs clear, normal breath sounds, no respiratory distress Cardiovascular: regular rate, rhythm, no edema, no gallop, no JVD, no murmur Abdomen/GI: normal bowel sounds, non tender, soft, no organomegaly Extremities/Musculoskelatal: normal inspection, no calf tenderness, normal capillary refill Neurologic/Psych: no motor/sensory deficits, alert, normal mood/affect Skin: normal color, warm/dry, no rash (one florentino catheter is located at Left upper chest wall, no redness around catheter, ) Laboratory Results Last 24 Hours Test 03/01/17 05:39 White Blood Count 6.15 K/uL Red Blood Count 4.66 M/uL Hemoglobin 11.9 g/dL Hematocrit 36.2 % Mean Corpuscular Volume 77.7 fL Mean Corpuscular Hemoglobin 25.5 pg Mean Corpuscular Hemoglobin Concent 32.9 g/dl Platelet Count 224 K/uL Mean Platelet Volume 9.7 fL Neutrophils (%) (Auto) 58.8 % Lymphocytes (%) (Auto) 25.2 % Monocytes (%) (Auto) 13.0 % Eosinophils (%) (Auto) 1.5 % Basophils (%) (Auto) 0.7 % Neutrophils # (Auto) 3.62 K/uL Lymphocytes # (Auto) 1.55 K/uL Monocytes # (Auto) 0.80 K/uL Eosinophils # (Auto) 0.09 K/uL Basophils # (Auto) 0.04 K/uL RDW Standard Deviation 44.8 fL RDW Coefficient of Variation 15.7 % Immature Granulocyte % (Auto) 0.8 % Immature Granulocyte # (Auto) 0.05 K/uL Sodium Level 136 mmol/L Potassium Level 3.9 mmol/L Chloride Level 104 mmol/L Carbon Dioxide Level 28 mmol/L Anion Gap 4.0 mmol/L Blood Urea Nitrogen 17 mg/dl Creatinine 0.79 mg/dl Est Creatinine Clear Calc Drug Dose 141.5 ml/min Estimated GFR () 107.7 Estimated GFR (Non- 92.9 BUN/Creatinine Ratio 21.3 Random Glucose 122 mg/dl Calcium Level 8.5 mg/dl Magnesium Level 2.0 mg/dl Assessment & Plan Assessment: pt is a 66 years old male who was admitted to hospital for weakness chills, Blood culture + for G- Bacilli, IMP: infected florentino catheter Plan, Pt requests to remove the florentino catheter, D/W benefits, risks and alternatives of the procedure, the risks -infection, bleeding, sepsis, pt understood, he agrees with the plan, pt will have removal the hichman catheter under sedation + local anesthesia, It is better to wait one week to put new catheter in,
[2017-03-01 16:03] VITALS: BP 144/67; PULSE 90; TEMP 37; O2SAT 97
[2017-03-01 17:30] VITALS: O2SAT 97
--- NOTE | 2017-03-01 19:06 | Orthopedic Progress Note ---
Orthopedic Progress Note Date of Service Mar 01, 2017. Subjective Additional Notes: Patient seen at bedside this afternoon at 12:15pm. Currently without pain of the left hip, denies fevers, chills, nausea/vomiting, SOB or chest pain. Objective AOx3, NAD RLE: NVSI +EHL/FHL/TA/GS SILT grossly, calves soft nontender, N/V intact, capillary refill less than 2 sec, compartments soft, painless ROM of hip, incisional wound without drainage, +granulation tissue. No florence-incisional erythema/cellulitis. Date Time Temp Pulse Resp B/P (MAP) Pulse Ox O2 Delivery O2 Flow Rate FiO2 03/01/17 17:47 37 89 16 142/76 (98) 96 Room Air 03/01/17 16:03 37.0 90 18 144/67 (92) 97 Room Air 03/01/17 08:00 Room Air 03/01/17 07:10 36.7 92 18 118/79 (92) 96 Room Air 03/01/17 03:54 36.8 84 18 125/77 (93) 97 03/01/17 01:15 37.0 89 18 120/77 (91) 96 03/01/17 00:05 Room Air 02/28/17 20:05 Room Air Laboratory Results 24 Hours: Test 03/01/17 05:39 White Blood Count 6.15 K/uL Red Blood Count 4.66 M/uL Hemoglobin 11.9 g/dL Hematocrit 36.2 % Mean Corpuscular Volume 77.7 fL Mean Corpuscular Hemoglobin 25.5 pg Mean Corpuscular Hemoglobin Concent 32.9 g/dl Platelet Count 224 K/uL Mean Platelet Volume 9.7 fL Neutrophils (%) (Auto) 58.8 % Lymphocytes (%) (Auto) 25.2 % Monocytes (%) (Auto) 13.0 % Eosinophils (%) (Auto) 1.5 % Basophils (%) (Auto) 0.7 % Neutrophils # (Auto) 3.62 K/uL Lymphocytes # (Auto) 1.55 K/uL Monocytes # (Auto) 0.80 K/uL Eosinophils # (Auto) 0.09 K/uL Basophils # (Auto) 0.04 K/uL Assessment & Plan Assessment: 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 The patient is currently being managed conservatively on suppressive antibiotics and wound care for his right hip wound. The patient expressed to me he wishes to continue with nonsurgical treatment. I discussed his surgical options which would include right hip explant, I+D and insertion of an articulating antibiotic cement spacer with prolonged IV antibiotic therapy. He understands that by treating the infection without surgery and with suppressive abx and wound care his risks include but not limited to worsening of his symptoms, nonhealing would, osteomyelitis, seeding infection to other parts of the body, sepsis and . -Wound care for right hip wound -IV abx per ID, recs appreciated -Monitor nutritional status/labs -Trend inflammatory markers WBC/ESR/CRP -WBAT RLE -Pain controlled -Would recommend Interventional Radiology consult and hip aspiration for GS, Culture and cell count. -PT/OT when medically stable Inhouse Planning Pain Management: Oxycontin, PO Tylenol DVT Prophylaxis: TEDs, SCDs, Lovenox Discharge Planning Discharge Planning: uncertain Discharge Planning Notes: spoke with Dr. Singh today. He will be in to see patient tomorrow if patient still inpatient otherwise will follow up in the office.
[2017-03-01] MEDS ORDERED: BUPIVACAINE/EPINEPHRINE 0.5% MPF 1:200,000 30 ML VIAL ONE (19:29)
[2017-03-01] MEDS ORDERED: LIDOCAINE HCL 1% 20 ML VIAL ONE (19:29)
[2017-03-01] MEDS ORDERED: CEFAZOLIN SOD 2000MG/10 ML IV PUSH IV ONE ×2 (19:33→19:45)
[2017-03-01] MEDS ORDERED: NURSING VERBAL MED ORDER ONE (19:45)
[2017-03-01] MEDS: BUPIVACAINE 0.5 % 5 MG/1 ML MPF 30ML VIAL ONE ×2 (20:03→20:04)
[2017-03-01] MEDS: LIDOCAINE HCL 1% 20 ML VIAL ONE (20:04)
[2017-03-01] MEDS ORDERED: BACITRACIN OINT 15 GM TUBE ONE (20:19)
--- NOTE | 2017-03-01 20:31 | [facility] Post Operative Brief Note ---
Immediate Operative Summary Operative Date Mar 01, 2017. Pre-Operative Diagnosis infected florentino catheter Post-Operative Diagnosis same Procedure(s) Performed removal of florentino catheter Surgeon cari Lopez Wool Fleece Sorter Surgeon(s) surgical first assistant Estimated Blood Loss 5 ml Findings intact catheter Fluids (cc crystalloids) 100ml Specimens tip of catheter Drains none Anesthesia local Complication(s) None Disposition Recovery Room / PACU
[2017-03-01 20:40] VITALS: BP 132/69; PULSE 93; TEMP 36.6; O2SAT 95
--- NOTE | 2017-03-01 20:48 | Infectious Disease Progress Nt ---
Progress Note Date of Service Mar 01, 2017. Subjective Pt evaluation today including: conversation w/ patient, physical exam, chart review, lab review, review of studies, conversation w/ customer sales consultant, review of inpatient medication list Patient now status post removal of PICC line catheter. Catheter cultures are pending. Blood cultures all growing stenotrophomonas. Remains afebrile. No new complaints. All Other Systems: Reviewed and Negative Medications Current Inpatient Medications Medications (Trade) Dose Ordered Sig/Chris Route Start Time Stop Time Status Last Admin Dose Admin Acetaminophen (Tylenol Tab) 650 mg Q4H PRN PO 02/26/17 14:00 03/28/17 13:59 Al Hydrox/Mg Hydrox/Simethicone (Maalox Max Susp) 15 ml Q4H PRN PO 02/26/17 14:00 03/28/17 13:59 02/27/17 21:36 15 ML Magnesium Hydroxide (Milk Of Magnesia Susp) 30 ml Q12H PRN PO 02/26/17 14:00 03/28/17 13:59 Ondansetron HCl (Zofran Inj) 4 mg Q6H PRN IV 02/26/17 14:00 03/28/17 13:59 Polyethylene (Miralax Powder Packet) 17 gm DAILY PRN PO 02/26/17 14:00 03/28/17 13:59 Allopurinol (Zyloprim Tab) 300 mg QAM PO 02/27/17 09:00 03/29/17 08:59 03/01/17 08:45 300 MG Finasteride (Proscar Tab) 5 mg QAM PO 02/27/17 09:00 03/29/17 08:59 03/01/17 08:48 5 MG HCTZ/Losartan Potassium (Hyzaar 50-12.5 Tab) 1 tab QAM PO 02/27/17 09:00 03/29/17 08:59 03/01/17 08:49 1 TAB Nortriptyline HCl (Pamelor Cap) 20 mg HS PO 02/26/17 21:00 03/28/17 20:59 02/28/17 20:38 20 MG Oxycodone HCl (Roxicodone Immediate Rel Tab) 10 mg TID PRN PO 02/26/17 14:00 03/12/17 13:59 Tamsulosin HCl (Flomax Cap) 0.4 mg BID PO 02/26/17 21:00 03/28/17 20:59 03/01/17 08:47 0.4 MG Cholecalciferol (Vitamin D Tab) 2,000 inter.unit QAM PO 02/27/17 09:00 03/29/17 08:59 03/01/17 08:46 2,000 INTER.UNIT Cyanocobalamin (Vitamin B-12 Tab) 1,000 mcg QAM PO 02/27/17 09:00 03/29/17 08:59 03/01/17 08:46 1,000 MCG Acetaminophen (Tylenol Tab) 1,000 mg BID PO 02/26/17 21:00 03/28/17 20:59 03/01/17 08:54 1,000 MG Imipenem/ Cilastatin Sodium (Consult) 1 ea UD N/A 02/26/17 14:52 03/28/17 14:51 Hydralazine HCl (HydrALAZINE INJ) 10 mg Q6 PRN IV. 02/26/17 14:30 03/28/17 14:29 Imipenem/ Cilastatin Sodium 1000 mg/Dextrose 270 ml @ 250 mls/hr Q8H IV 02/26/17 18:00 03/12/17 17:59 03/01/17 09:17 250 MLS/HR Heparin Sodium (Porcine) (Heparin 10 Unit/ ml 5 ml Flush) 5 ml PRN PRN FLUSH 02/27/17 03:00 03/29/17 02:59 03/01/17 05:39 5 ML Levofloxacin 750 mg/Prmx 150 ml @ 100 mls/hr Q24H IV 02/27/17 10:00 03/13/17 09:59 03/01/17 10:13 100 MLS/HR Lactobacillus Acidophilus (Floranex Tab) 4 tab TIDM PO 02/27/17 11:30 03/29/17 11:29 03/01/17 13:03 4 TAB Potassium Chloride (Klor-Con Tab) 20 meq BID PO 02/27/17 21:00 03/29/17 20:59 03/01/17 08:48 20 MEQ Enteral Nutritional Formula (Prosource No Carb) 30 ml TID PO 02/27/17 21:00 03/29/17 20:59 02/28/17 14:21 30 ML Enoxaparin Sodium (Lovenox Inj) 40 mg DAILY@2100 SQ 02/28/17 21:00 03/30/17 20:59 02/28/17 20:35 40 MG Ketoconazole (Nizoral 2% Crm) 1 appln BID EXT 03/01/17 08:00 03/11/17 07:59 03/01/17 08:48 1 APPLN Objective Vital Signs Date Time Temp Pulse Resp B/P (MAP) Pulse Ox O2 Delivery O2 Flow Rate FiO2 03/01/17 20:40 36.6 93 16 132/69 (90) 95 Room Air 03/01/17 17:47 37 89 16 142/76 (98) 96 Room Air 03/01/17 16:03 37.0 90 18 144/67 (92) 97 Room Air 03/01/17 08:00 Room Air 03/01/17 07:10 36.7 92 18 118/79 (92) 96 Room Air 03/01/17 03:54 36.8 84 18 125/77 (93) 97 03/01/17 01:15 37.0 89 18 120/77 (91) 96 03/01/17 00:05 Room Air Physical Exam General Appearance: WD/WN, no apparent distress Eyes: normal inspection, EOMI, sclerae normal ENT: normal ENT inspection, pharynx normal Neck: supple, no adenopathy, trachea midline Respiratory/Chest: chest non-tender, lungs clear, normal breath sounds, no respiratory distress Cardiovascular: regular rate, rhythm, no gallop, no murmur Abdomen: normal bowel sounds, non tender, soft, no organomegaly Extremities: non-tender, no calf tenderness (A up) Neurologic/Psychiatric: alert, oriented x 3 Skin: normal color, no rash, + pertinent finding (Surgical dressing intact) Lymphatic: no adenopathy Laboratory Results Last 24 Hours Test 03/01/17 05:39 White Blood Count 6.15 K/uL Red Blood Count 4.66 M/uL Hemoglobin 11.9 g/dL Hematocrit 36.2 % Mean Corpuscular Volume 77.7 fL Mean Corpuscular Hemoglobin 25.5 pg Mean Corpuscular Hemoglobin Concent 32.9 g/dl Platelet Count 224 K/uL Mean Platelet Volume 9.7 fL Neutrophils (%) (Auto) 58.8 % Lymphocytes (%) (Auto) 25.2 % Monocytes (%) (Auto) 13.0 % Eosinophils (%) (Auto) 1.5 % Basophils (%) (Auto) 0.7 % Neutrophils # (Auto) 3.62 K/uL Lymphocytes # (Auto) 1.55 K/uL Monocytes # (Auto) 0.80 K/uL Eosinophils # (Auto) 0.09 K/uL Basophils # (Auto) 0.04 K/uL RDW Standard Deviation 44.8 fL RDW Coefficient of Variation 15.7 % Immature Granulocyte % (Auto) 0.8 % Immature Granulocyte # (Auto) 0.05 K/uL Sodium Level 136 mmol/L Potassium Level 3.9 mmol/L Chloride Level 104 mmol/L Carbon Dioxide Level 28 mmol/L Anion Gap 4.0 mmol/L Blood Urea Nitrogen 17 mg/dl Creatinine 0.79 mg/dl Est Creatinine Clear Calc Drug Dose 141.5 ml/min Estimated GFR () 107.7 Estimated GFR (Non- 92.9 BUN/Creatinine Ratio 21.3 Random Glucose 122 mg/dl Calcium Level 8.5 mg/dl Magnesium Level 2.0 mg/dl Assessment and Plan Patient with persistent stenotrophomonas bacteremia, now status post removal of likely infected catheter. Patient be continued on levofloxacin, likely in the range of 2 weeks of therapy. Will follow.
[2017-03-01] MEDS: ENOXAPARIN 40 MG/0.4 ML SYR SQ SCH (20:56)
[2017-03-01] MEDS: NORTRIPTYLINE HCL 10 MG CAP PO SCH (20:58)
--- NOTE | 2017-03-01 20:59 | Progress Note ---
Subjective Date of Service: Mar 01, 2017. Subjective Pt evaluation today including: conversation w/ patient, physical exam, chart review, lab review, conversation w/ technical solutions consultant (general surgery), review of inpatient medication list Pain: right hip - chronic, no change PO Intake: npo for probable Florentino catheter removal Voiding: no voiding problems no events overnight feels good no fevers or chills Problem List Medical Problems: (1) Febrile illness Status: Acute (2) Postoperative wound infection of right hip Status: Acute (3) Unspecified open wound, right hip, sequela Status: Acute Review of Systems Respiratory: No shortness of breath, No dyspnea on exertion Cardiac: No chest pain, No orthopnea, No edema Abdomen: No pain Objective Vital Signs Date Time Temp Pulse Resp B/P (MAP) Pulse Ox O2 Delivery O2 Flow Rate FiO2 03/01/17 20:40 36.6 93 16 132/69 (90) 95 Room Air 03/01/17 17:47 37 89 16 142/76 (98) 96 Room Air 03/01/17 16:03 37.0 90 18 144/67 (92) 97 Room Air 03/01/17 08:00 Room Air 03/01/17 07:10 36.7 92 18 118/79 (92) 96 Room Air 03/01/17 03:54 36.8 84 18 125/77 (93) 97 03/01/17 01:15 37.0 89 18 120/77 (91) 96 03/01/17 00:05 Room Air Physical Exam General Appearance: no apparent distress, + obese ENT: pharynx normal Neck: no JVD Respiratory/Chest: lungs clear, no respiratory distress, no accessory muscle use Cardiovascular: regular rate, rhythm, no gallop, no murmur Abdomen: normal bowel sounds, non tender, soft, no organomegaly Extremities: no pedal edema Neurologic/Psychiatric: alert, oriented x 3 Skin: + pertinent finding (stasis changes b/l shins; right hip wound - margins clean, ulcer cavity clean and w/o odor, no cellulitis; florentino catheter, left chest, clean) Laboratory Results Last 24 Hours Test 03/01/17 05:39 White Blood Count 6.15 K/uL Red Blood Count 4.66 M/uL Hemoglobin 11.9 g/dL Hematocrit 36.2 % Mean Corpuscular Volume 77.7 fL Mean Corpuscular Hemoglobin 25.5 pg Mean Corpuscular Hemoglobin Concent 32.9 g/dl Platelet Count 224 K/uL Mean Platelet Volume 9.7 fL Neutrophils (%) (Auto) 58.8 % Lymphocytes (%) (Auto) 25.2 % Monocytes (%) (Auto) 13.0 % Eosinophils (%) (Auto) 1.5 % Basophils (%) (Auto) 0.7 % Neutrophils # (Auto) 3.62 K/uL Lymphocytes # (Auto) 1.55 K/uL Monocytes # (Auto) 0.80 K/uL Eosinophils # (Auto) 0.09 K/uL Basophils # (Auto) 0.04 K/uL RDW Standard Deviation 44.8 fL RDW Coefficient of Variation 15.7 % Immature Granulocyte % (Auto) 0.8 % Immature Granulocyte # (Auto) 0.05 K/uL Sodium Level 136 mmol/L Potassium Level 3.9 mmol/L Chloride Level 104 mmol/L Carbon Dioxide Level 28 mmol/L Anion Gap 4.0 mmol/L Blood Urea Nitrogen 17 mg/dl Creatinine 0.79 mg/dl Est Creatinine Clear Calc Drug Dose 141.5 ml/min Estimated GFR () 107.7 Estimated GFR (Non- 92.9 BUN/Creatinine Ratio 21.3 Random Glucose 122 mg/dl Calcium Level 8.5 mg/dl Magnesium Level 2.0 mg/dl Assessment and Plan 66yo male - 1. stenotrophomonas bacteremia - source likely the Florentino catheter. Gen surgery consulted and they will remove the catheter today; tip to be sent for culture. Continues on IV levaquin for the stenotrophomonas as well as imipenem. ID consult appreciated. ECHO w/o obvious vegetations. Fortunately, despite persistently positive blood cx's, he is afebrile & feels well. Will repeat his blood cultures in the AM to ensure blood is becoming sterile. 2. hypokalemia - replaced, resolved. 3. h/o rheumatic fever as child - noted. No mitral stenosis seen on echo. 4. chronic cor pulmonale / RV failure - compensated. Perhaps he has this due to chronic SABRINA (but he has had treatment for such over the last 20 years w/ CPAP). He does not appear to have underlying lung disease such as ILD, etc as the cause. He has no symptoms to suggest chronic VTE but that is possible given multiple hospital stays & surgeries in the last year. Could consider v/q scan. Recommend cardiology follow-up for this. He is aware of this recommendation. 5. SABRINA - CPAP. Follows with Dr. Gilliam; recently had sleep study and is on proper CPAP settings. 6. HTN - controlled. 7. 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 Management per ortho & ID. Appreciate both consultants & their recommendations. Agree with ID that the cause of stenotrophomonas bacteremia is unlikely to be the hip. Agree with Dr. Villagomez that in the near future we should consider IR assisted I/ D for culture & gram stain. 8. morbid obesity with BMI 57 9. FEN - bmp wnl. Eating fine. 10. BPH - continue outpatient meds. 11. DVT proph - lovenox daily. Continued [facility] stay due to: multiple IV medications needed
--- NOTE | 2017-03-01 21:16 | OPERATIVE REPORT ---
DATE OF OPERATION: 03/01/2017 PREOPERATIVE DIAGNOSIS: Infected Marie catheter. POSTOPERATIVE DIAGNOSIS: Same. PROCEDURE: Removal of Marie catheter. SURGEON: Blanka Hale MD. ANESTHESIA: Local. ESTIMATED BLOOD LOSS: About 5 mL. FINDINGS: Intact catheter. COMPLICATIONS: None. INDICATIONS FOR THE PROCEDURE: This is a 66-year-old gentleman who is admitted to hospital for weakness and patient's blood culture positive for bacteria and the patient will require to remove Marie catheter. I did talk to the patient about the benefit, risks and alternate procedure. I indicated the risks may include but not limited such as bleeding, infection, sepsis. The patient understands. He signed informed consent and I answered all questions. DETAILS OF PROCEDURE: We brought the patient to the OR, put the patient in the supine position. The patient received SCD on bilateral legs to prevent DVT. The patient's left side of the chest wall was prepped and draped in routine sterile fashion and there a Marie catheter on the left side chest wall. After a timeout, I injected local anesthesia by using 1% lidocaine mixed with 0.5% Marcaine around the catheter and I completely removed the catheter with the capsule of the catheter. Hemostasis was obtained and I used 3-0 nylon to close the incision interruptedly. Once we removed the catheter, we sent the tip of the catheter for culture. Then, we put the dressing on. The patient tolerated the procedure well. After the procedure, the patient transferred to recovery room in stable condition. All the instrument, needle and sponge count correct x2 at the end of the case. I attest to the content of the Intraoperative Record and any orders documented therein. Any exceptions are noted below. PANCHO
[2017-03-02 00:05] VITALS: BP 105/65; PULSE 85; TEMP 36.8; O2SAT 95
[2017-03-02] MEDS: IMIPENEM/CILASTATIN IV 1,000 MG in DEXTROSE 5% 250ML 250 ML IV SCH ×2 (02:08→10:51)
[2017-03-02] MEDS: PROSOURCE NOCARB 30ML/PKT PO SCH ×2 (08:00→13:33)
[2017-03-02 08:06] VITALS: BP 118/78; PULSE 89; TEMP 36.8; O2SAT 97
[2017-03-02] MEDS: FINASTERIDE 5 MG TAB PO SCH (08:31)
[2017-03-02] MEDS: LOSARTAN/HCTZ 50-12.5 EA TAB PO SCH (08:31)
[2017-03-02] MEDS: ALLOPURINOL 300 MG TAB PO SCH (08:31)
[2017-03-02] MEDS: POTASSIUM CHLORIDE 20 MEQ TABCR PO SCH (08:31)
[2017-03-02] MEDS: ACETAMINOPHEN 500 MG TAB PO SCH (08:31)
[2017-03-02] MEDS: CYANOCOBALAMIN 500 MCG TAB (VIT B-12) PO SCH (08:31)
[2017-03-02] MEDS: CHOLECALCIFEROL 1000 INTER.UNIT TAB PO SCH (08:31)
[2017-03-02] MEDS: TAMSULOSIN HCL 0.4 MG CAP PO SCH (08:31)
[2017-03-02] MEDS: LACTOBACILLUS ACIDOPHILUS (FLORANEX) TAB PO SCH ×2 (08:32→12:30)
[2017-03-02] MEDS: KETOCONAZOLE 2% CR 15 GM TUBE EXT SCH (08:32)
[2017-03-02] MEDS: LEVOFLOXACIN / D5W 750 MG in PREMIXED IN D5W 150 ML IV SCH (10:19)
[2017-03-02] MEDS ORDERED: DAPT500I IV (11:57)
[2017-03-02] MEDS ORDERED: ERTA1INJ IV (11:57)
--- NOTE | 2017-03-02 13:28 | Surgery Progress Note ---
Surgery Progress Note Date of Service Mar 02, 2017. Subjective Post OP Day: 1 (s/p Marie Catheter removal) + feeling well, No complaints, No chest pain, No SOB Objective Vital Signs: Date Time Temp Pulse Resp B/P (MAP) Pulse Ox O2 Delivery O2 Flow Rate FiO2 03/02/17 08:10 Room Air 03/02/17 08:06 36.8 89 22 118/78 (91) 97 Room Air 03/02/17 00:05 36.8 85 16 105/65 (78) 95 03/02/17 00:05 Room Air 03/01/17 20:40 36.6 93 16 132/69 (90) 95 Room Air 03/01/17 20:19 98 16 97 Room Air 03/01/17 20:16 97 16 97 Room Air 03/01/17 20:15 95 16 97 Room Air 03/01/17 20:10 101 16 97 Room Air 03/01/17 20:07 100 16 97 Room Air 03/01/17 20:04 100 16 97 Room Air 03/01/17 20:00 97 16 97 Room Air 03/01/17 19:57 97 16 96 Room Air 03/01/17 19:54 99 16 96 Room Air 03/01/17 19:53 102 16 97 Room Air 03/01/17 17:47 37 89 16 142/76 (98) 96 Room Air 03/01/17 17:30 97 Room Air 03/01/17 16:03 37.0 90 18 144/67 (92) 97 Room Air General Appearance: no apparent distress, + obese Head: normocephalic, atraumatic Neck: trachea midline Respiratory/Chest: no respiratory distress, no accessory muscle use, + pertinent finding (Left chest with dressing intact and dry, no surrounding erythema) Incision(s): clean, dry, intact, no erythema, no drainage Laboratory Results: Results Past 24 Hours Test 03/02/17 07:09 Range/Units Microbiology Results 03/02/17 Blood Culture, Received Pending 03/02/17 Blood Culture, Received Pending 03/02/17 Gram Stain, Ordered Pending 03/02/17 Bacterial Culture, Ordered Pending 03/01/17 Gram Stain - Final, Resulted 03/01/17 Bacterial Culture, Resulted Pending Assessment & Plan POD # 1 s/p removal of Marie catheter of left chest -vitals stable - no leukocytosis - Catheter tip Culture pending, Repeat Blood cultures pending - no pain, doing well, no fevers Plan: Continue current medical and infectious disease management for bacteremia and chronic wound Continue IV antibiotics May remove dressing in two days, keep covered, dry and clean Follow-up with Dr. Hale in 2 weeks for suture removal and discussion of placement of new catheter Office number given in discharge paperwork Signing off today, please call with questions or concerns Patient seen with Dr. Hale who agrees with above
--- NOTE | 2017-03-02 15:00 | Infectious Disease Progress Nt ---
Progress Note Date of Service Mar 02, 2017. Subjective Pt evaluation today including: conversation w/ patient, physical exam, chart review, lab review, review of studies, conversation w/ production support consultant, review of inpatient medication list Patient offers no new complaints today. Pain controlled. No fever. Follow-up blood cultures pending. All Other Systems: Reviewed and Negative Medications Current Inpatient Medications Medications (Trade) Dose Ordered Sig/Chris Route Start Time Stop Time Status Last Admin Dose Admin Acetaminophen (Tylenol Tab) 650 mg Q4H PRN PO 02/26/17 14:00 03/28/17 13:59 Al Hydrox/Mg Hydrox/Simethicone (Maalox Max Susp) 15 ml Q4H PRN PO 02/26/17 14:00 03/28/17 13:59 02/27/17 21:36 15 ML Magnesium Hydroxide (Milk Of Magnesia Susp) 30 ml Q12H PRN PO 02/26/17 14:00 03/28/17 13:59 Ondansetron HCl (Zofran Inj) 4 mg Q6H PRN IV 02/26/17 14:00 03/28/17 13:59 Polyethylene (Miralax Powder Packet) 17 gm DAILY PRN PO 02/26/17 14:00 03/28/17 13:59 Allopurinol (Zyloprim Tab) 300 mg QAM PO 02/27/17 09:00 03/29/17 08:59 03/02/17 08:31 300 MG Finasteride (Proscar Tab) 5 mg QAM PO 02/27/17 09:00 03/29/17 08:59 03/02/17 08:31 5 MG HCTZ/Losartan Potassium (Hyzaar 50-12.5 Tab) 1 tab QAM PO 02/27/17 09:00 03/29/17 08:59 03/02/17 08:31 1 TAB Nortriptyline HCl (Pamelor Cap) 20 mg HS PO 02/26/17 21:00 03/28/17 20:59 03/01/17 20:58 20 MG Oxycodone HCl (Roxicodone Immediate Rel Tab) 10 mg TID PRN PO 02/26/17 14:00 03/12/17 13:59 Tamsulosin HCl (Flomax Cap) 0.4 mg BID PO 02/26/17 21:00 03/28/17 20:59 12/5/17 08:31 0.4 MG Cholecalciferol (Vitamin D Tab) 2,000 inter.unit QAM PO 02/27/17 09:00 03/29/17 08:59 03/02/17 08:31 2,000 INTER.UNIT Cyanocobalamin (Vitamin B-12 Tab) 1,000 mcg QAM PO 02/27/17 09:00 03/29/17 08:59 03/02/17 08:31 1,000 MCG Acetaminophen (Tylenol Tab) 1,000 mg BID PO 02/26/17 21:00 03/28/17 20:59 03/02/17 08:31 1,000 MG Imipenem/ Cilastatin Sodium (Consult) 1 ea UD N/A 02/26/17 14:52 03/28/17 14:51 Hydralazine HCl (HydrALAZINE INJ) 10 mg Q6 PRN IV. 02/26/17 14:30 03/28/17 14:29 Imipenem/ Cilastatin Sodium 1000 mg/Dextrose 270 ml @ 250 mls/hr Q8H IV 02/26/17 18:00 03/12/17 17:59 03/02/17 10:51 250 MLS/HR Heparin Sodium (Porcine) (Heparin 10 Unit/ ml 5 ml Flush) 5 ml PRN PRN FLUSH 02/27/17 03:00 03/29/17 02:59 03/01/17 05:39 5 ML Levofloxacin 750 mg/Prmx 150 ml @ 100 mls/hr Q24H IV 02/27/17 10:00 03/13/17 09:59 03/02/17 10:19 100 MLS/HR Lactobacillus Acidophilus (Floranex Tab) 4 tab TIDM PO 02/27/17 11:30 03/29/17 11:29 03/02/17 12:30 4 TAB Potassium Chloride (Klor-Con Tab) 20 meq BID PO 02/27/17 21:00 03/29/17 20:59 03/02/17 08:31 20 MEQ Enteral Nutritional Formula (Prosource No Carb) 30 ml TID PO 02/27/17 21:00 03/29/17 20:59 03/01/17 20:56 30 ML Enoxaparin Sodium (Lovenox Inj) 40 mg DAILY@2100 SQ 02/28/17 21:00 03/30/17 20:59 03/01/17 20:56 40 MG Ketoconazole (Nizoral 2% Crm) 1 appln BID EXT 03/01/17 08:00 03/11/17 07:59 03/02/17 08:32 1 APPLN Objective Vital Signs Date Time Temp Pulse Resp B/P (MAP) Pulse Ox O2 Delivery O2 Flow Rate FiO2 03/02/17 08:10 Room Air 03/02/17 08:06 36.8 89 22 118/78 (91) 97 Room Air 03/02/17 00:05 36.8 85 16 105/65 (78) 95 03/02/17 00:05 Room Air 03/01/17 20:40 36.6 93 16 132/69 (90) 95 Room Air 03/01/17 20:19 98 16 97 Room Air 03/01/17 20:16 97 16 97 Room Air 03/01/17 20:15 95 16 97 Room Air 03/01/17 20:10 101 16 97 Room Air 03/01/17 20:07 100 16 97 Room Air 03/01/17 20:04 100 16 97 Room Air 03/01/17 20:00 97 16 97 Room Air 03/01/17 19:57 97 16 96 Room Air 03/01/17 19:54 99 16 96 Room Air 03/01/17 19:53 102 16 97 Room Air 03/01/17 17:47 37 89 16 142/76 (98) 96 Room Air 03/01/17 17:30 97 Room Air 03/01/17 16:03 37.0 90 18 144/67 (92) 97 Room Air Physical Exam General Appearance: WD/WN, no apparent distress Eyes: normal inspection, sclerae normal ENT: normal ENT inspection, pharynx normal Neck: supple, no adenopathy, trachea midline Respiratory/Chest: chest non-tender, lungs clear, normal breath sounds, no respiratory distress Cardiovascular: regular rate, rhythm, no gallop, no murmur Abdomen: normal bowel sounds, non tender, soft, no organomegaly Extremities: non-tender, no calf tenderness Neurologic/Psychiatric: alert, oriented x 3 Skin: normal color, warm/dry, no rash Lymphatic: no adenopathy Laboratory Results Date/Time Source Procedure Growth Status 03/02/17 06:55 Blood Blood Culture Pending Received 03/02/17 06:46 Blood Blood Culture Pending Received 03/02/17 07:09 Joint Fluid/Space (Synovial) Hip , Right Gram Stain Pending Ordered 03/02/17 07:09 Joint Fluid/Space (Synovial) Hip , Right Bacterial Culture Pending Ordered 03/01/17 20:09 Foreign Body Miscellaneous Gram Stain - Final Resulted 03/01/17 20:09 Foreign Body Miscellaneous Bacterial Culture - Preliminary NO GROWTH TO DATE. Resulted Last 24 Hours Test 03/02/17 07:09 Assessment and Plan Patient with persistent stenotrophomonas bacteremia, now status post removal of likely infected catheter. Patient be continued on levofloxacin, likely in the range of 2 weeks of therapy. Will follow.
[2017-03-02] MEDS ORDERED: NZRCR EXT (15:11)
[2017-03-02] MEDS ORDERED: LVQ750 PO (15:11)
--- NOTE | 2017-03-02 15:14 | Discharge Instructions ---
Discharge Instructions Date of Service Mar 02, 2017. Admission Reason for Admission: Bacteremia Discharge Discharge Diagnosis / Problem: infetected marie cath, s/p removal Discharge Goals Goal(s): Diagnostic testing, Therapeutic intervention Activity Recommendations Activity Limitations: resume your previous activity . Instructions / Follow-Up Instructions / Follow-Up Please be sure to coordinate your logistics of appointments so that you may have a pre op consultation with Dr Montalvo or his partner to have your marie replaced before your peripheral IV is no longer useful Current Hospital Diet Patient's current hospital diet: Regular Diet Discharge Diet Recommended Diet: Low Sodium Diet (2gm Na) Procedures Procedures Performed: Removal of infected Marie Catheter Pending Studies Studies pending at discharge: yes List of pending studies: cultures of marie tip and fluid aspirated from right hip on 03/02 Medical Emergencies . Who to Call and When: Medical Emergencies: If at any time you feel your situation is an emergency, please call 911 immediately. . Non-Emergent Contact Non-Emergency issues call your: Primary Care Provider, Surgeon Call Non-Emergent contact if: temperature is above 101, your pain is unusual for you . . "Provider Documentation" section prepared by Harrison Lewis. . VTE Core Measure Inpt VTE Proph given/why not?: SCD's
[2017-03-02 15:21] VITALS: BP 118/78; PULSE 89; TEMP 36.8; O2SAT 97
--- NOTE | 2017-03-02 15:51 | DIAGNOSTIC IMAGING REPORT ---
FLUOROSCOPICALLY GUIDED RIGHT HIP ASPIRATION CLINICAL HISTORY: Bacteremia. Chronic right hip infection. Evaluate for septic hip arthroplasty. COMPARISON STUDY: CT scan dated 02/08/2017 FLUOROSCOPY TIME: 42 seconds. NUMBER OF FLUOROSCOPIC IMAGES: 1 FINDINGS: A timeout was performed. The risks of the procedure were explained to the patient and informed consent was obtained. The patient prepped and draped in sterile fashion. The skin was anesthetized with 1% lidocaine. Under fluoroscopic guidance, a 20-gauge spinal needle was advanced to the lateral aspect of the prosthetic femoral neck. After the needle made contact with the neck, the needle was advanced to distal centimeters. Aspiration was performed. 6 cc of reddish turbid fluid was aspirated and sent to the laboratory for evaluation. IMPRESSION: 1. Successful fluoroscopically guided aspiration of a prosthetic right hip. 6 cc of turbid reddish fluid was aspirated and sent to the laboratory for evaluation Electronically signed by: Reid Burrell M.D. 03/02/2017 3:49 PM Dictated Date/Time: 03/02/2017 3:47 PM
[2017-03-02 16:28] LABS: SYNOVIAL FLUID APPEARANCE CLOUDY; SYNOVIAL FLUID COLOR RED; SYNOVIAL FLUID MONONUC RELAT 6.8 %; SYNOVIAL FLUID POLYNUC RELAT 93.2 %
--- NOTE | 2017-03-02 16:53 | Orthopedic Progress Note ---
Orthopedic Progress Note Date of Service Mar 02, 2017. Subjective Additional Notes: Patient seen prior to DC, comfortable, pain free, denies fevers, chills, nausea and vomiting. Objective AOx3, NAD RLE: NVSI +EHL/FHL/TA/GS SILT grossly, calves soft nontender, N/V intact, capillary refill less than 2 sec, compartments soft, painless ROM of hip. Wound vac in place Date Time Temp Pulse Resp B/P (MAP) Pulse Ox O2 Delivery O2 Flow Rate FiO2 03/02/17 15:21 36.8 89 22 97 Room Air 03/02/17 08:10 Room Air 03/02/17 08:06 36.8 89 22 118/78 (91) 97 Room Air 03/02/17 00:05 36.8 85 16 105/65 (78) 95 03/02/17 00:05 Room Air 03/01/17 20:40 36.6 93 16 132/69 (90) 95 Room Air 03/01/17 20:19 98 16 97 Room Air 03/01/17 20:16 97 16 97 Room Air 03/01/17 20:15 95 16 97 Room Air 03/01/17 20:10 101 16 97 Room Air 03/01/17 20:07 100 16 97 Room Air 03/01/17 20:04 100 16 97 Room Air 03/01/17 20:00 97 16 97 Room Air 03/01/17 19:57 97 16 96 Room Air 03/01/17 19:54 99 16 96 Room Air 03/01/17 19:53 102 16 97 Room Air 03/01/17 17:47 37 89 16 142/76 (98) 96 Room Air 03/01/17 17:30 97 Room Air Assessment & Plan Assessment: Right hip chronic wound infection with dehiscence, chronic Right SURJIT infection on suppression antibiotics Plan: -Wound care for right hip wound -IV abx per ID, recs appreciated -Monitor nutritional status/labs -Trend inflammatory markers WBC/ESR/CRP -IR hip aspiration, GS, CS, CC -WBAT RLE -Pain controlled -PT/OT when medically stable -WIll see as OP, patient wishes to continue with conservative treatments at this time. Inhouse Planning Pain Management: Oxycontin, PO Tylenol DVT Prophylaxis: TEDs, SCDs, Lovenox Discharge Planning Discharge Planning: uncertain Discharge Planning Notes: spoke with Dr. Singh today. He will be in to see patient tomorrow if patient still inpatient otherwise will follow up in the office.
--- NOTE | 2017-03-02 18:03 | Discharge Summary ---
Discharge Summary Date of Service Mar 02, 2017. Discharge Summary Admission Date: Feb 26, 2017 at 14:18 Discharge Date: Mar 02, 2017 Principal Diagnosis: florentino line infection with bactermia, chronic left hip infection Immunizations: Have You Had Influenza Vaccine: Yes History of Tetanus Vaccine?: No History of Pneumococcal: No History of Hepatitis B Vaccine: No Consultations: DR Purcell and [facility], Dr Villagomez Medication Reconciliation New Medications: Ketoconazole (Ketoconazole) 45 Appln/15 Gm Cr 1 APPLN EXT BID, #1 CAN Changed Medications: Daptomycin (Daptomycin) 500 Mg Inj 900 MG IV DAILY for 42 Days, #42 DOSE (Medication details modified) chronic right hip infection Ertapenem Sodium (Invanz) 1 Gm Inj 1 GM IV DAILY for 42 Days, #42 DOSE (Medication details modified) chronic right hip infection Levofloxacin (Levofloxacin) 750 Mg Tab 750 MG PO DAILY, #14 DOSE (Changed from: Levofloxacin (Levaquin) 500 Mg Tab 500 Mg PO QAM) Continued Medications: Acetaminophen (Tylenol) 500 Mg Tab 1000 MG PO DIRECTED, TAB Allopurinol (Zyloprim) 300 Mg Tab 300 MG PO QAM, TAB Cholecalciferol (Vitamin D3) 2,000 Unit Cap 1 CAP PO QAM Cyanocobalamin (B-12) 1,000 Mcg Cap 1000 MCG PO QAM Finasteride (Proscar) 5 Mg Tab 5 MG PO QAM, TAB Hctz/Losartan (Hyzaar 12.5MG/50MG) Tab 1 TAB PO QAM Nortriptyline (Pamelor) 10 Mg Cap 20 MG PO HS, CAP Tamsulosin HCl (Tamsulosin HCl) 0.4 Mg Cap 1 CAP PO BID Discontinued Medications: Oxycodone Ir (Roxicodone Ir) 5 Mg Tab 10 MG PO TID PRN for Pain Discharge Exam Review of Systems: Constitutional: No fever, No chills Cardiovascular: No chest pain, No orthopnea Abdomen: No pain, No nausea Musculoskeletal: + joint pain, + muscle pain Integumentary: + problem reported (changes of chronic venous stasis to LE) Physical Exam: General Appearance: + mild distress, + obese Eyes: PERRL, EOMI Respiratory/Chest: chest non-tender, lungs clear, normal breath sounds Cardiovascular: regular rate, rhythm, no murmur Abdomen / GI: normal bowel sounds, non tender, soft Extremities: + pedal edema (wound vac on hip and chronic discoloration to LE ), + pertinent finding Neurologic/Psychiatric: alert, oriented x 3 Hospital Course 66yo male -with Stenotrophomonas catheter associated infection s/p removal of florentino, and persistently associated right SURJIT infection stenotrophomonas bacteremia - s/p removal of Florentino catheter 03/01. Continues on levaquin for the stenotrophomonas ID feels to start with po levaquin as outpt ECHO w/o obvious vegetations, h/o rheumatic fever as child No mitral stenosis seen on echo. Fortunately, despite persistently positive blood cx's, he is afebrile & feels well. hypokalemia - repleated chronic cor pulmonale / RV failure - compensated. Recommend cardiology follow-up for this. SABRINA - CPAP. Follows with Dr. Gilliam; recently had sleep study and is on proper CPAP settings. HTN - controlled. 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 . ID feels that the cause of stenotrophomonas bacteremia is unlikely to be the hip. Dr. Villagomez had US guided drainage of hip prior to discharge, pt will continue on supressive antibiotics at outpt treatment area and follow up with ID and ortho as outpt morbid obesity with BMI 57, makes wound healing and mobility a challenge Total Time Spent: Greater than 30 minutes This includes examination of the patient, discharge planning, medication reconciliation, and communication with other providers. Discharge Instructions Please refer to the electronic Patient Visit Report (Discharge Instructions) for additional information. Additional Copies To Yoan Villagomez D.O.
== END 2017-03-02 16:03 | disposition home or self-care (01) | DRG 315 ==
LOC: C.EDB 10:14 → C.2E 14:18 → EDBEDREQ 14:39 → ENRESERV 14:48 → C.4E 02-28 15:08
PROVIDERS: ADMIT Internal Medicine; ATTEND Internal Medicine
PROC: 0WP8X3Z Removal of Infusion Device from Chest Wall, External Approach (ICD-10-PCS; principal; 2017-03-01 13:30)
PROC: 0S993ZX Drainage of Right Hip Joint, Percutaneous Approach, Diagnostic (ICD-10-PCS; 2017-03-02)
DX: T80.211A Bloodstream infection due to central venous catheter, initial encounter (principal); E46 Unspecified protein-calorie malnutrition; R78.81 Bacteremia; Z68.43 Body mass index [BMI] 50.0-59.9, adult; T84.51XA Infection and inflammatory reaction due to internal right hip prosthesis, initial encounter; Z82.49 Family history of ischemic heart disease and other diseases of the circulatory system; M1A.9XX0 Chronic gout, unspecified, without tophus (tophi); I10 Essential (primary) hypertension; Z96.651 Presence of right artificial knee joint; Z96.641 Presence of right artificial hip joint; B96.89 Other specified bacterial agents as the cause of diseases classified elsewhere; E87.6 Hypokalemia; G47.33 Obstructive sleep apnea (adult) (pediatric); E66.01 Morbid (severe) obesity due to excess calories; E29.1 Testicular hypofunction; Y79.2 Prosthetic and other implants, materials and accessory orthopedic devices associated with adverse incidents; Y71.2 Prosthetic and other implants, materials and accessory cardiovascular devices associated with adverse incidents; Y92.009 Unspecified place in unspecified non-institutional (private) residence as the place of occurrence of the external cause

== ENCOUNTER → 2017-03-23 | Outpatient (CLI) | payer OTHER, MEDICARE ==
[~2017-03-23] MED LIST changes: +ATEN-173 PO; -CLB/200 PO; -LEVO1TAB34 PO; +LVQ750 PO; +NZRCR EXT; -OXYC1TAB3 PO
--- NOTE | 2017-03-23 16:52 | DIAGNOSTIC IMAGING REPORT ---
L VENOUS DOPPLER UPR EXT UNIL CLINICAL HISTORY: 67 years-old Male presenting with LEFT ARM PAIN, R/O DVT. TECHNIQUE: Real-time grayscale and color and spectral Doppler ultrasound imaging of the veins of the left upper extremity was performed. Compression and augmentation were also utilized. COMPARISON: None. FINDINGS: Left: Internal jugular vein: Patent. Subclavian vein: Patent. Axillary vein: Patent. Basilic vein: Patent. Brachial vein: Patent. Cephalic vein: Patent. Apparent linear hyperechogenic filling defect within the cephalic vein may represent a web, scar, or chronic nonocclusive thrombus. The majority of the cephalic vein does not demonstrate this abnormality. Normal compression of the cephalic vein. Radial vein: Not interrogated. Ulnar vein: Not interrogated. Other: None. IMPRESSION: No evidence of deep venous thrombosis. Electronically signed by: Adelfo Lamb M.D. 03/23/2017 4:50 PM Dictated Date/Time: 03/23/2017 4:48 PM
== END | disposition home or self-care (01) ==
LOC: C.ULTR 15:53
PROVIDERS: ATTEND Physician Assistant Medical
DX: M79.602 Pain in left arm (principal)

== ENCOUNTER 2017-04-01 08:33 | Day surgery (SDC) | payer OTHER, MEDICARE ==
[2017-03-24 09:02] VITALS: Ht 172.7 cm; Wt 167.3 kg
[~2017-04-01] VITALS: Ht 172.7 cm; Wt 167.3 kg
[~2017-04-01 08:33] MED LIST changes: +LACTATED RINGER'S 1000ML 1,000 ML IV SCH; -LVQ750 PO; -NZRCR EXT
[2017-04-01 09:25] VITALS: BP 145/80; PULSE 81; TEMP 37.1; O2SAT 95
--- NOTE | 2017-04-01 10:47 | History & Physical Bridge Note ---
H&P Re-Evaluation Bridge Note: I have examined the patient, reviewed the History & Physical and in the interval since the performance of the History & Physical I have noted the following changes of clinical significance: No changes noted no one bedside
--- NOTE | 2017-04-01 11:03 | Discharge Instructions ---
Discharge Instructions Date of Service Apr 01, 2017. Visit Reason for Visit: Right Prosthetic Hip Joint Infection Discharge Discharge Diagnosis / Problem: catheter placement Discharge Goals Goal(s): Therapeutic intervention Activity Recommendations Activity Limitations: as noted below Shower/Bathe: tomorrow Anesthesia . Post Anesthesia Instructions: If you have had General Anesthesia or IV Sedation: * Do not drive today. * Resume driving when surgeon permits. * Do not make important decisions or sign legal documents today. * Call surgeon for: 1. Temperature elevations greater than 101 degrees F. 2. Uncontrollable pain. 3. Excessive bleeding. 4. Persistent nausea and vomiting. 5. Medication intolerance (nausea, vomiting or rash). * For nausea and vomiting use only clear liquids such as: tea, soda, bouillon until nausea subsides, then gradually increase diet as tolerated. * If you have any concerns or questions, call your surgeon's office. If physician is unavailable and it is an emergency, call 911 or go to the nearest emergency room. . Instructions / Follow-Up Instructions / Follow-Up Dr. Montalvo in 2 weeks, call [phone] if you have any questions or need to schedule Diet Recommendations Recommended Home Diet: no limitations Pending Studies Studies pending at discharge: no Medical Emergencies . Who to Call and When: Medical Emergencies: If at any time you feel your situation is an emergency, please call 911 immediately. . Non-Emergent Contact Non-Emergency issues call your: Surgeon Call Non-Emergent contact if: you have a fever, temperature is above 101.5, your pain is not controlled, wound has increased redness, wound has increased pain . . "Provider Documentation" section prepared by Maurizio Chang. .
[2017-04-01] MEDS ORDERED: FENTANYL CITRATE INJ 50 MCG/1 ML 2 ML VIAL ONE (11:10)
[2017-04-01] MEDS ORDERED: MIDAZOLAM HCL 1 MG/ML 2ML VIAL ONE (11:10)
[2017-04-01] MEDS ORDERED: CONRAY 60% 50 ML VIAL ONE (11:26)
[2017-04-01] MEDS ORDERED: BACITRACIN 50000 UNIT VIAL ONE (11:26)
[2017-04-01] MEDS ORDERED: LIDOCAINE HCL 1% 20 ML VIAL ONE ×2 (11:26→12:04)
[2017-04-01] MEDS ORDERED: ATROPINE SULFATE 0.1 MG/ML 5ML SYR IV PRN (11:45)
[2017-04-01] MEDS ORDERED: EpHEDrine SULFATE INJ 50 MG/ML AMP IV PRN (11:45)
[2017-04-01] MEDS ORDERED: CEFAZOLIN SOD 1 GM VIAL ONE (11:49)
[2017-04-01] MEDS ORDERED: LIDOCAINE HCL 2% 2 ML VIAL (20MG/ML) ONE (12:12)
[2017-04-01] MEDS ORDERED: PROPOFOL IV EMULSION 10 MG/ML 20 ML VIAL IV ONE (12:12)
[2017-04-01] MEDS ORDERED: LACTATED RINGER'S 1000ML 1,000 ML IV SCH (12:27)
[2017-04-01] MEDS ORDERED: HYDROCODONE/ACETAMOPHEN 5/325MG TAB PO PRN (12:30)
[2017-04-01] MEDS ORDERED: ONDANSETRON INJ 2 MG/ML 2 ML VIAL IV PRN (12:30)
[2017-04-01] MEDS ORDERED: MoRPHine SULFATE 2 MG/ML CARP IV PRN (12:30)
--- NOTE | 2017-04-01 12:45 | Anesthesiology Progress Note ---
Anesthesia Post Op Note Date & Time Apr 01, 2017 at 12:45 Vital Signs Pain Intensity: 0 Vital Signs Past 12 Hours Date Time Temp Pulse Resp B/P (MAP) Pulse Ox O2 Delivery O2 Flow Rate FiO2 04/01/17 12:40 79 18 138/77 98 Room Air 04/01/17 12:31 36.0 80 18 131/78 100 Room Air 04/01/17 09:25 37.1 81 20 145/80 (101) 95 Room Air Notes Mental Status: alert / awake / arousable, participated in evaluation Pt Amnestic to Procedure: Yes Nausea / Vomiting: adequately controlled Pain: adequately controlled Airway Patency, RR, SpO2: stable & adequate BP & HR: stable & adequate Hydration State: stable & adequate Anesthetic Complications: no major complications apparent
--- NOTE | 2017-04-01 12:54 | [facility] Post Operative Brief Note ---
Immediate Operative Summary Operative Date Apr 01, 2017. Pre-Operative Diagnosis right hip prosthetic infection Post-Operative Diagnosis right hip prosthetic infection Procedure(s) Performed insertion of Marie port to right subclavian with fluoroscopy Surgeon Dr. Ej Montalvo Lan Specialist Surgeon(s) Maurizio JOSEPH Estimated Blood Loss 50ml Findings as preop Specimens none per surgeon Anesthesia 1% xyl(8cc) and iv sedation
[2017-04-01 12:57] VITALS: BP 156/82; PULSE 80; TEMP 36.7; O2SAT 94
--- NOTE | 2017-04-01 13:14 | DIAGNOSTIC IMAGING REPORT ---
CHEST ONE VIEW PORTABLE CLINICAL HISTORY: central line placement tube position COMPARISON STUDY: 02/08/2017 FINDINGS: Central catheter placement right-sided approach. Tip is in this. Vena cava. No evidence for pneumothorax. Mild stable cardiomegaly. Diaphragms smooth. Lungs are clear. IMPRESSION: Central catheter placed in the superior vena cava. No evidence for pneumothorax. The above report was generated using voice recognition software. It may contain grammatical, syntax or spelling errors. Electronically signed by: Reymundo Cortes M.D. 04/01/2017 1:12 PM Dictated Date/Time: 04/01/2017 1:12 PM
--- NOTE | 2017-04-01 13:15 | OPERATIVE REPORT ---
DATE OF OPERATION: 04/01/2017 PREOPERATIVE DIAGNOSIS: Infected knee prosthesis, long-term antibiotic, lack of venous access. POSTOPERATIVE DIAGNOSIS: Same. PROCEDURE: Insertion of Marie catheter into the right subclavian vein. SURGEON: Dr. Montalvo. BIOLOGY DEPARTMENT CHAIR: Christian Chang PA-C. OPERATION AND FINDINGS: SUMMARY: The patient was brought into the operating room and a roll had been placed underneath his shoulders and neck on both sides and upper chest bilaterally was prepped with Betadine scrubbing solution and properly draped. Systemic antibiotics was given. We used the right side approach. The patient had left Marie done about a year ago and then that apparently became dislodged, was pulled, but recently the patient had some pain in the upper extremity according to him and a Doppler may have showed some thrombus according to the patient. Therefore, I used the right side. IV sedation was given. We used 1% Xylocaine without epinephrine, a total of about 8 mL first to infiltrate at the angle of the clavicle. Once we infiltrated that then percutaneously we accessed the vein without any difficulty, positioning the guidewire went without any difficulty. We were able then to have some PVCs and also fluoroscopically we could see the guidewire going in the heart. The patient was significantly obese. It was hard to really differentiate the alignment. He weighs about 400 pounds, but with best we could tell there seemed to be the heart was slightly rotated. Even though we tried rotating the patient to the right it was not really successful. Having said that I made a counter incision about an inch below that, approximately 1 cm or so in size, sufficient enough that we dissected underneath the area to the previously made guidewire. We then were able to measure out the catheter. We inflated about 20 cm and looked like it was the angle of [place] as best as we could tell lengthwise that would be sufficient. At this point we then using the tunneler we positioned the catheter, the Dacron cuff to the most inferior incision, tunneled it to the area where the guidewire was opening that incision, we enlarged it and we were able to pull the catheter in that area, then we percutaneously were able to put the dilator in and position the catheter into the heart area. As best we can tell it seemed like it was in the appropriate place, although it was hard to really define it. We did place some contrast in there and I was able to see that the catheter appeared to be into the right atrial area, possibly superior vena cava. At this point we then closed the incision, made sure that the entry site in the skin where the Dacron cuff was secured. The other ones were then closed with 4-0 Dexon and Steri-Strips applied. A dressing was applied Op-Site. The catheter was flushed and aspirated it quite easily. The procedure was tolerated well by the patient and was taken to recovery room in good condition. Follow-up chest x-ray revealed that the catheter appeared to be into the superior vena cava. No pneumo. I attest to the content of the Intraoperative Record and any orders documented therein. Any exceptions are noted below. SCHUYLERD
--- NOTE | 2017-04-01 13:16 | OPERATIVE REPORT ---
DATE OF OPERATION: 04/01/2017 PREOPERATIVE DIAGNOSIS: Lack of venous access. POSTOPERATIVE DIAGNOSIS: Same. PROCEDURE: Insertion of a Marie catheter, right subclavian vein. SUMMARY: The patient underwent the above procedure. We used fluoroscopic guidance and used the fluoroscope to visualize and position the catheter in appropriate time. I attest to the content of the Intraoperative Record and any orders documented therein. Any exceptions are noted below. PANCHO
[2017-04-01 13:27] VITALS: BP 160/82; PULSE 79; TEMP 36.7; O2SAT 99
== END 2017-04-01 13:44 | disposition home or self-care (01) ==
LOC: C.ACU 08:33
PROVIDERS: ATTEND Surgery
DX: T84.51XA Infection and inflammatory reaction due to internal right hip prosthesis, initial encounter (principal); Y83.1 Surgical operation with implant of artificial internal device as the cause of abnormal reaction of the patient, or of later complication, without mention of misadventure at the time of the procedure; G47.33 Obstructive sleep apnea (adult) (pediatric); I10 Essential (primary) hypertension; E66.9 Obesity, unspecified; N48.83 Acquired buried penis; L65.9 Nonscarring hair loss, unspecified; M19.90 Unspecified osteoarthritis, unspecified site; D22.9 Melanocytic nevi, unspecified; I87.2 Venous insufficiency (chronic) (peripheral); I27.81 Cor pulmonale (chronic); M15.9 Polyosteoarthritis, unspecified; K21.9 Gastro-esophageal reflux disease without esophagitis; M10.9 Gout, unspecified; Z68.43 Body mass index [BMI] 50.0-59.9, adult; Z96.651 Presence of right artificial knee joint; Z86.718 Personal history of other venous thrombosis and embolism; Z90.49 Acquired absence of other specified parts of digestive tract; Z80.3 Family history of malignant neoplasm of breast; Z82.0 Family history of epilepsy and other diseases of the nervous system; Z82.49 Family history of ischemic heart disease and other diseases of the circulatory system; Z80.8 Family history of malignant neoplasm of other organs or systems

== ENCOUNTER → 2017-06-08 | Outpatient (CLI) | payer OTHER, MEDICARE ==
[~2017-06-08] MED LIST changes: -LACTATED RINGER'S 1000ML 1,000 ML IV SCH; +TEST1DIS
== END | disposition home or self-care (01) ==
LOC: C.LAB 08:46
PROVIDERS: ATTEND Physician Assistant Medical
DX: E29.1 Testicular hypofunction (principal)

== ENCOUNTER 2017-06-30 09:11 | Inpatient (IN) | payer OTHER, MEDICARE ==
[~2017-06-30] VITALS: Ht 172.7 cm; Wt 177.9 kg
--- NOTE | 2017-06-30 09:37 | DIAGNOSTIC IMAGING REPORT ---
CHEST ONE VIEW PORTABLE CLINICAL HISTORY: Sepsis COMPARISON STUDY: April 01, 2017 FINDINGS: There is a right subclavian central venous catheter which appears to extend into the internal jugular vein. The tip is not visualized on this study. Clinical correlation is advocated repositioning should be considered. The cardiac and mediastinal contours remain stable. There is no focal pulmonary consolidation. Slight interstitial prominence, is likely accentuated due to the patient's body habitus.[ IMPRESSION: 1. Right subclavian central venous catheter which appears to extend cephalad into the right internal jugular vein. Clinical correlation and repositioning should be considered. 2. No evidence of focal pulmonary consolidation Electronically signed by: Reid Burrell M.D. 06/30/2017 9:36 AM Dictated Date/Time: 06/30/2017 9:34 AM
--- NOTE | 2017-06-30 10:25 | EMERGENCY ROOM VISIT NOTE ---
History Report prepared by Boyd: Whitley Sofia Under the Supervision of: Xander MichaudO. First contact with patient: 09:15 Chief Complaint: OTHER COMPLAINT Stated Complaint: chills History of Present Illness The patient is a 67 year old male who presents to the Emergency Room with complaints of shaking and rigors. The patient is currently receiving IV antibiotics through an indwelling IV catheter for an infection in his right hip. This is been ongoing for quite some time. He states that the hip does not feel any worse than usual but he is now been noticing back pain as well as hip pain. He received IV antibiotics at the [facility]. He started having worsening symptoms so he was sent to the emergency department for an evaluation. The patient denied having any fevers. He does not complain of cough or difficulty urinating. The patient has not had any chest pain. The patient states that he is having difficulty ambulating because of the hip but this is not new. 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 A total of 10 systems reviewed and were otherwise negative. Past Medical & Surgical Medical Problems: (1) Bacteremia (2) Knee pain (3) Positive blood culture (4) Post op infection (5) Right Hip Wound Drainage Surgical Problems: (1) Post-operative state (2) Post-operative state Family History Heart Disease Hypertension Parkinson's Disease Social History Smoking Status: Unknown if Ever Smoked Drug Use: none Marital Status: Housing Status: lives with family Occupation Status: retired Current/Historical Medications Scheduled Acetaminophen (Tylenol), 1,000 MG PO DIRECTED Allopurinol (Zyloprim), 300 MG PO QAM Atenolol (Tenormin), 25 MG PO QAM Cholecalciferol (Vitamin D3), 2,000 UNIT PO QAM Cyanocobalamin (B-12), 1,000 MCG PO QAM Daptomycin (Daptomycin), 900 MG IV DAILY Ertapenem Sodium (Invanz), 1 GM IV DAILY Finasteride (Proscar), 5 MG PO QAM Hctz/Losartan (Hyzaar 12.5MG/50MG), 1 TAB PO QAM Nortriptyline (Pamelor), 20 MG PO HS Tamsulosin HCl (Tamsulosin HCl), 0.4 MG PO BID Testosterone (Androderm), DAILY Allergies Coded Allergies: No Known Allergies (Unverified , 06/30/17) Physical Exam Vital Signs Date Time Temp Pulse Resp B/P (MAP) Pulse Ox O2 Delivery O2 Flow Rate FiO2 06/30/17 18:30 105 24 06/30/17 18:16 100/66 06/30/17 18:15 104 21 94 Nasal Cannula 2.0 06/30/17 18:01 126/79 06/30/17 18:00 102 27 92 Nasal Cannula 2.0 06/30/17 17:46 101/58 06/30/17 17:45 104 19 94 Nasal Cannula 2.0 06/30/17 17:31 103/58 06/30/17 17:30 102 25 91 Nasal Cannula 2.0 06/30/17 17:27 99/57 06/30/17 17:21 104 10 95 Nasal Cannula 2.0 06/30/17 17:06 104 15 90 Room Air 06/30/17 17:01 101/56 06/30/17 16:51 104 20 91 Room Air 06/30/17 16:46 97/52 06/30/17 16:45 102/50 06/30/17 16:37 73/44 88 Room Air 06/30/17 16:37 91 Room Air 06/30/17 16:36 105 21 91 06/30/17 16:31 82/44 06/30/17 16:30 97 17 06/30/17 16:01 107/61 06/30/17 16:00 107 16 06/30/17 15:31 86/47 06/30/17 15:30 106 19 06/30/17 15:23 94 Room Air 06/30/17 15:01 103/53 06/30/17 15:00 110 17 06/30/17 14:31 108 22 100/50 96 Room Air 06/30/17 13:36 109 20 105/60 93 Room Air 06/30/17 13:04 112 06/30/17 12:53 95 Room Air 06/30/17 12:36 115 22 122/62 95 Room Air 06/30/17 10:50 102 21 92/54 99 Room Air 06/30/17 09:31 Room Air 06/30/17 09:27 84 06/30/17 09:24 36.8 92 28 177/124 97 Room Air Physical Exam GENERAL: Patient is awake and alert. He is anxious and uncomfortable appearing. EYES: The conjunctivae are clear. The pupils are round and reactive. EARS, NOSE, MOUTH AND THROAT: The nose is without any evidence of any deformity. Mucous members are dry. NECK: The neck is nontender and supple. RESPIRATORY: Shallow respirations were noted. There was no tachypnea or conversational dyspnea noted. CARDIOVASCULAR: Regular rate and rhythm noted there no murmurs rubs or gallops normal S1 normal S2 GASTROINTESTINAL: The abdomen is soft. Bowel sounds are present in all quadrants. Abdomen is nontender BACK: No midline tenderness was noted in the midline. There is some pain with range of motion. MUSCULOSKELETAL/EXTREMITIES: There was pain with range of motion of the right hip. SKIN: There is bilateral lower extremity edema. The patient had a wound dressing in place over the lateral right hip. There was mild erythema surrounding this. NEUROLOGIC: Patient is awake alert and oriented x3. Medical Decision & Procedures ER Provider Diagnostic Interpretation: Radiology results as stated below per my review and radiologist interpretation: CHEST ONE VIEW PORTABLE CLINICAL HISTORY: Sepsis COMPARISON STUDY: April 01, 2017 FINDINGS: There is a right subclavian central venous catheter which appears to extend into the internal jugular vein. The tip is not visualized on this study. Clinical correlation is advocated repositioning should be considered. The cardiac and mediastinal contours remain stable. There is no focal pulmonary consolidation. Slight interstitial prominence, is likely accentuated due to the patient's body habitus.[ IMPRESSION: 1. Right subclavian central venous catheter which appears to extend cephalad into the right internal jugular vein. Clinical correlation and repositioning should be considered. 2. No evidence of focal pulmonary consolidation Electronically signed by: Reid Burrell M.D. 06/30/2017 9:36 AM Dictated Date/Time: 06/30/2017 9:34 AM DOPPLER ULTRASOUND OF THE RIGHT INTERNAL JUGULAR VEIN CLINICAL HISTORY: Right neck pain. Evaluate for thrombus within the right internal jugular vein. COMPARISON STUDY: No previous studies for comparison. TECHNIQUE: Sonography of the right internal jugular vein was performed. FINDINGS: A catheter within a right internal jugular vein is noted. There is trace thrombus along the catheter. No occlusive thrombus within the right internal jugular vein is noted. The vessel is patent. IMPRESSION: Trace thrombus adherent to the right internal jugular vein catheter. Electronically signed by: Timothy Ochoa M.D. 06/30/2017 12:16 PM Dictated Date/Time: 06/30/2017 12:14 PM Laboratory Results Test 06/30/17 10:15 06/30/17 10:24 06/30/17 10:32 06/30/17 11:00 Urine Color YELLOW Urine Appearance CLOUDY (CLEAR) Urine pH 5.0 (4.5-7.5) Urine Specific [place] 1.021 (1.000-1.030) Urine Protein NEG (NEG) Urine Glucose (UA) NEG (NEG) Urine Ketones NEG (NEG) Urine Occult Blood NEG (NEG) Urine Nitrite NEG (NEG) Urine Bilirubin NEG (NEG) Urine Urobilinogen NEG (NEG) Urine Leukocyte Esterase MODERATE (NEG) Urine WBC (Auto) 1-5 /hpf (0-5) Urine RBC (Auto) 0-4 /hpf (0-4) Urine Hyaline Casts (Auto) 1-5 /lpf (0-5) Urine Epithelial Cells (Auto) 10-20 /lpf (0-5) Urine Bacteria (Auto) NEG (NEG) Urine Crystals (NONE PRSENT) Urine Yeast (Auto) BUD W/ HYPHAE (NONE PRSENT) Nucleated RBC Absolute Count (auto) 0.02 K/uL (0-0) Neutrophils % (Manual) 52.3 % Lymphocytes % (Manual) 35.4 % Metamyelocytes % 1.5 % Myelocytes % 10.8 % Nucleated Red Blood Cells % 1.3 % Neutrophils # (Manual) 0.80 K/uL (1.4-6.5) Total Absolute Neutrophils 0.80 K/uL (1.4-6.5) Lymphocytes # (Manual) 0.54 K/uL (1.2-3.4) Total Absolute Lymphocytes 0.54 K/uL (1.2-3.4) Metamyelocytes # 0.02 K/uL (0-0) Myelocytes # 0.17 K/uL (0-0) Erythrocyte Sedimentation Rate 39 mm/hr (0-14) Magnesium Level 1.7 mg/dl (1.8-2.4) Total Creatine Kinase 71 U/L (39-308) Creatine Kinase MB 0.6 ng/ml (0.5-3.6) Creatine Kinase MB Ratio 0.8 (0-3.0) Troponin I < 0.015 ng/ml (0-0.045) C-Reactive Protein 11.20 mg/dl (0-0.29) Pro-B-Type Natriuretic Peptide 394 pg/ml (0-900) Lipase 80 U/L (73-393) Venous Blood pH 7.35 (7.36-7.41) Venous Blood Partial Pressure CO2 50 mmHg (38.0-50.0) Venous Blood Partial Pressure O2 25 mmHg Venous Blood HCO3 27 mmol/L Venous Blood Oxygen Saturation < 60.0 % Venous Blood Base Excess 0.5 mEq/L Influenza Type A (RT-PCR) Neg for Influ A (NEG) Influenza Type B (RT-PCR) Neg for Influ B (NEG) Test 06/30/17 17:16 Bedside Lactic Acid Venous 3.99 mmol/L (0.90-1.70) Laboratory results per my review. Medications Administered Medications (Trade) Dose Ordered Sig/Chris Route Start Time Stop Time Status Last Admin Dose Admin Oxycodone HCl (Roxicodone Immediate Rel Tab) 5 mg NOW STAT PO 06/30/17 11:18 06/30/17 11:19 DC 06/30/17 11:27 5 MG Magnesium Sulfate (Magnesium Sulfate) 2 gm NOW STAT IV 06/30/17 12:12 06/30/17 12:13 DC 06/30/17 13:31 2 GM Sodium Chloride 1,000 ml @ 999 mls/hr Q1H1M STAT IV 06/30/17 12:30 06/30/17 13:30 DC 06/30/17 13:30 999 MLS/HR Sodium Chloride 1,000 ml @ 250 mls/hr Q4H STAT IV 06/30/17 12:30 06/30/17 16:29 DC 06/30/17 15:21 250 MLS/HR Sodium Chloride 1,000 ml @ 999 mls/hr Q1H1M STAT IV 06/30/17 16:15 06/30/17 17:15 DC 06/30/17 16:36 999 MLS/HR Cefepime HCl 2000 mg/Dextrose 112.5 ml @ 200 mls/hr ONE STAT IV 06/30/17 16:40 06/30/17 17:13 DC 06/30/17 17:27 200 MLS/HR Sodium Chloride 1,000 ml @ 999 mls/hr Q1H1M STAT IV 06/30/17 16:55 06/30/17 17:55 DC 06/30/17 17:28 999 MLS/HR Acetaminophen (Tylenol Tab) 650 mg Q4H PRN PO 06/30/17 18:30 07/30/17 18:29 06/30/17 20:05 650 MG Ondansetron HCl (Zofran Inj) 4 mg Q6H PRN IV 06/30/17 18:30 07/30/17 18:29 06/30/17 23:57 4 MG ED Course 0915: The patient was evaluated in room B3B. A complete history and physical examination were performed. 1117: The patient is complaining of pain. 1118: Oxycodone HCl 5 mg PO 1149: I updated the patient and his family. They are in agreement with the treatment plan. 1212: Magnesium Sulfate 2 gm IV 1230: NSS 1000 ml @ 250 mls/hr IV, NSS 1000 ml @ 999 mls/hr IV 1240: I spoke with Dr. Brandon with the [facility]. We discussed the case. He will evaluate the patient. 1259: Dr. Brandon feels that the patient should be managed by orthopedics. 1324: I discussed the case with Dr. Jiang of orthopedics in [place]. He does not feel that the patient needs to be transferred at this time. He requests that the patient be stabilized medically. 1331: I reassessed the patient at this time. He is resting more comfortably. I discussed the results and treatment plan with the patient. I answered all pertaining questions that he had. He expressed understanding and verbalized agreement. 1515: I tried to discuss the case once again with Dr. Jiang, as our orthopedic group felt the patient would be a better candidate for a tertiary center transfer. At this time he is unable to discuss the case with me at this time. 1530: Discussed this case again with Dr. Jiang. He would like to discuss the case with our orthopedic group further as to the reason of transfer. 1615: Discussed with Ky Hutson, he will discussed the case with the orthopedic attending. 1720: Discussed the case with Dr. Brandon with [facility] hospitalist group. Medical Decision Prior records/ancillary studies reviewed and summarized above. Nursing notes reviewed. Additional history obtained from the patient's significant other. The patient's history was concerning for generalized weakness and sepsis. Differential diagnosis: Etiologies such as metabolic, infection, hypo/hyperglycemia, electrolyte abnormalities, cardiac sources, intracerebral event, toxicologic, neurologic, as well as others were entertained. 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 The patient has been receiving IV antibiotics at the [facility]. The patient received his IV dose this morning but was sent to the emergency department after he developed symptoms of possible infection. The patient was evaluated in the emergency department. He had received IV antibiotics so no further IV antibiotics were initially ordered. The patient's history and physical exam as well as his laboratory and radiographic studies appear to be consistent with ongoing infection. I discussed patient's laboratory and radiographic studies with him. I discussed his case with the on-call [facility] hospitalist. Initially they were reluctant to evaluate the patient in the emergency department because our orthopedic group were reluctant to consult on the patient at our facility. I discussed this case twice with the on-call [facility] orthopedic physician at [facility]. They felt it would be more appropriate for the patient to be stabilized here and then transferred at a later date. I discussed the case with our orthopedic group twice. At this time I am still awaiting a call back. I discussed the problems with the patient's Marie line. Medication Reconcilliation Current Medication List: was personally reviewed by me Blood Pressure Screening Patient's blood pressure: Normal blood pressure Consults Time Called: 1232 Consulting Physician: Dr. Brandon Returned Call: [address] Brandon with the [facility]. We discussed the case. He will evaluate the patient. Additional Consults: Time Called: 1319 Consulted Physician: Dr. Jiang Returned Call: 1322 Additional Comments: I discussed the case with Dr. Jiang of orthopedics in [place]. He does not feel that the patient needs to be transferred at this time. He requests that the patient be stabilized medically. Impression Primary Impression: Post op infection Additional Impressions: Right Hip Wound Drainage Neutropenia Sepsis Scribe Attestation The scribe's documentation has been prepared under my direction and personally reviewed by me in its entirety. I confirm that the note above accurately reflects all work, treatment, procedures, and medical decision making performed by me. Departure Information Referrals Janelle Ahumada P.A. (PCP) Patient Instructions My [facility] Problem Qualifiers Primary Impression: Post op infection Encounter type: subsequent encounter Qualified Codes: T81.4XXD - Infection following a procedure, subsequent encounter Additional Impressions: Neutropenia Neutropenia type: unspecified Qualified Codes: D70.9 - Neutropenia, unspecified Sepsis Sepsis type: sepsis due to unspecified organism Qualified Codes: A41.9 - Sepsis, unspecified organism
[2017-06-30 11:07] LABS: HEMATOCRIT 41.8 % (42-52); HEMOGLOBIN 13.8 g/dL (14.0-18.0); MEAN CELL VOLUME 78.7 fL (80-100); MEAN PLATELET VOLUME 9.9 fL (7.4-10.4); NUCLEATED RED BLOOD CELL ABS 0.02 K/uL (0-0); PLATELET COUNT 143 K/uL (130-400); RED CELL DISTRIBUTION WIDTH SD 43.2 fL (36.4-46.3); WHITE BLOOD COUNT 1.53 K/uL (4.8-10.8)
[2017-06-30 11:14] LABS: INR 1.1 (0.9-1.1); PTT PATIENT 26.4 SECONDS (21.0-31.0)
[2017-06-30 11:16] LABS: ALT/SGPT 46 U/L (12-78); BLOOD UREA NITROGEN 17 mg/dl (7-18); CALCIUM 8.3 mg/dl (8.5-10.1); CARBON DIOXIDE 25 mmol/L (21-32); CREATININE 0.98 mg/dl (0.60-1.40); GLUCOSE 81 mg/dl (70-99); LIPASE 80 U/L (73-393); POTASSIUM 3.4 mmol/L (3.5-5.1); SODIUM 138 mmol/L (136-145)
[2017-06-30] MEDS ORDERED: OXYCODONE HCL IR 5 MG TAB (IMMEDIATE RELEASE) PO STA (11:18)
[2017-06-30 11:23] LABS: ALKALINE PHOSPHATASE 211 U/L (45-117); AST/SGOT 40 U/L (15-37); CKMB 0.6 ng/ml (0.5-3.6); TOTAL PROTEIN 7.5 gm/dl (6.4-8.2)
[2017-06-30 12:09] LABS: INFLUENZA A PCR Neg for Influ A (NEG); INFLUENZA B PCR Neg for Influ B (NEG)
[2017-06-30] MEDS ORDERED: MAGNESIUM SULFATE 1GM / D5W 1 GM BAG IV STA (12:12)
--- NOTE | 2017-06-30 12:17 | DIAGNOSTIC IMAGING REPORT ---
DOPPLER ULTRASOUND OF THE RIGHT INTERNAL JUGULAR VEIN CLINICAL HISTORY: Right neck pain. Evaluate for thrombus within the right internal jugular vein. COMPARISON STUDY: No previous studies for comparison. TECHNIQUE: Sonography of the right internal jugular vein was performed. FINDINGS: A catheter within a right internal jugular vein is noted. There is trace thrombus along the catheter. No occlusive thrombus within the right internal jugular vein is noted. The vessel is patent. IMPRESSION: Trace thrombus adherent to the right internal jugular vein catheter. Electronically signed by: Timothy Ochoa M.D. 06/30/2017 12:16 PM Dictated Date/Time: 06/30/2017 12:14 PM
[2017-06-30] MEDS ORDERED: SODIUM CHLORIDE 0.9% 1000ML 1,000 ML IV STA ×4 (12:30→16:55)
[2017-06-30 12:53] VITALS: O2SAT 95; Ht 172.7 cm; Wt 177.9 kg
[2017-06-30] MEDS ORDERED: CEFEPIME IV 2,000 MG in DEXTROSE 5% 100ML 100 ML IV STA (16:40)
[2017-06-30] MEDS ORDERED: MoRPHine SULFATE 2 MG/ML CARP IV PRN (18:30)
[2017-06-30] MEDS ORDERED: MAGNESIUM HYDROXIDE SUSP 30 ML UDC PO PRN (18:30)
[2017-06-30] MEDS ORDERED: ONDANSETRON INJ 2 MG/ML 2 ML VIAL IV PRN (18:30)
[2017-06-30] MEDS ORDERED: POLYETHYLENE (MIRALAX) 17 GM PACK PO PRN (18:30)
[2017-06-30] MEDS ORDERED: ALUMINUM/MAGNESIUM/SIMETH (MAALOX MAX) 30 ML UDC PO PRN (18:30)
[2017-06-30] MEDS ORDERED: ZOLPIDEM TARTRATE 5 MG TAB PO PRN (18:30)
--- NOTE | 2017-06-30 18:49 | History and Physical ---
History & Physical Date & Time of Service: Jun 30, 2017 at 17:44 Chief Complaint: chills Primary Care Physician: Janelle Ahumada P.AStephan History of Present Illness Source: patient, hospital records 66 y/o male with Hx SABRINA on CPAP, morbid obesity, HTN, BPH, gout, GERD - R SURJIT - revision and antibiotic bead therapy 06/12 due to poor wound healing and bacteremia. Pt has been treated with Daptomycin and Invanz since 06/12. Has presented to the hospital with recurrent bacteremia 03/14 and underwent US drainage of joint. Levaquin was added to reg for a period. Last culture on record positive for Stenotrophomonas Maltophilia. The pt has been recovering fairly well - wound has decreased in size and he is able to ambulate. He was at the infusion center today and developed rigors. He was transferred to the hospital therefore. He denies SOB, CP, N/V/D, dysuria. He did complain of R neck pain at the site of his venous catheter. Initial labs are notable for neutropenia and a marginal UA which is (+) for yeast. Additionally, an US of the R jugular shows trace thrombus without occlusion. Past Medical/Surgical History 1. SABRINA on CPAP 2. HTN 3. BPH 4. Gout 5. GERD 6. Post-Operative DVT (RESOLVED) 7. Rheumatic Fever - Childhood 8. Venous Insufficiency 9. Hypogonadism and Low Testosterone 10. Morbidly obese 11. R hip replacement - chronic infection - treated with outpt IV antibiotics since 06/12. Family History Heart Disease Hypertension Parkinson's Disease Social History Smoking Status: Never Smoker Drug Use: none Marital Status: Occupational Status: retired Immunizations History of Influenza Vaccine: Yes History of Tetanus Vaccine?: No History of Pneumococcal: No History of Hepatitis B Vaccine: No Allergies Coded Allergies: No Known Allergies (Unverified , 06/30/17) Home Medications Scheduled Acetaminophen (Tylenol), 1,000 MG PO DIRECTED Allopurinol (Zyloprim), 300 MG PO QAM Atenolol (Tenormin), 25 MG PO QAM Cholecalciferol (Vitamin D3), 2,000 UNIT PO QAM Cyanocobalamin (B-12), 1,000 MCG PO QAM Daptomycin (Daptomycin), 900 MG IV DAILY Ertapenem Sodium (Invanz), 1 GM IV DAILY Finasteride (Proscar), 5 MG PO QAM Hctz/Losartan (Hyzaar 12.5MG/50MG), 1 TAB PO QAM Nortriptyline (Pamelor), 20 MG PO HS Tamsulosin HCl (Tamsulosin HCl), 0.4 MG PO BID Testosterone (Androderm), DAILY Review of Systems Constitutional: + fever, + chills, + sweats, + weakness Eyes: No worsening of vision ENT: No hearing loss, No unusual epistaxis, No nasal symptoms Respiratory: No cough, No sputum, No wheezing Cardiovascular: No chest pain, No orthopnea, No PND Abdomen: No pain, No nausea, No vomiting Musculoskeletal: + problem reported (Pain in R hip has not increased) Genitourinary - Male: No hematuria, No dysuria Neurologic: + weakness, No memory loss, No paralysis Psychiatric: No depression symptoms Endocrine: + fatigue Hematologic / Lymphatic: No abnormal bleeding/bruising Integumentary: + problem reported (Surgical wound - improving per pt ) Physical Exam Vital Signs Date Time Temp Pulse Resp B/P (MAP) Pulse Ox O2 Delivery O2 Flow Rate FiO2 06/30/17 17:27 99/57 06/30/17 17:21 104 10 95 Nasal Cannula 2.0 06/30/17 17:06 104 15 90 Room Air 06/30/17 17:01 101/56 06/30/17 16:51 104 20 91 Room Air 06/30/17 16:46 97/52 06/30/17 16:45 102/50 06/30/17 16:37 73/44 88 Room Air 06/30/17 16:37 91 Room Air 06/30/17 16:36 105 21 91 06/30/17 16:31 82/44 06/30/17 16:30 97 17 06/30/17 16:01 107/61 06/30/17 16:00 107 16 06/30/17 15:31 86/47 06/30/17 15:30 106 19 06/30/17 15:23 94 Room Air 06/30/17 15:01 103/53 06/30/17 15:00 110 17 06/30/17 14:31 108 22 100/50 96 Nasal Cannula 06/30/17 13:36 109 20 105/60 93 Room Air 06/30/17 13:04 112 06/30/17 12:53 95 Room Air 06/30/17 12:36 115 22 122/62 95 Room Air 06/30/17 10:50 102 21 92/54 99 Room Air 06/30/17 09:31 Room Air 06/30/17 09:27 84 06/30/17 09:24 36.8 92 28 177/124 97 Room Air General Appearance: WD/WN, no apparent distress, + pertinent finding (Obese, middle-aged male - appears uncomfortable - no distress) Head: normocephalic Eyes: normal inspection ENT: normal ENT inspection, hearing grossly normal, + pertinent finding Neck: + pertinent finding (There is tenderness of the R neck ) Abdomen/GI: normal bowel sounds, non tender, soft Back: normal inspection Extremities/Musculoskelatal: + pertinent finding (Minimal edema) Neurologic/Psych: air pollution compliance inspector II-XII nml as tested, no motor/sensory deficits, alert, oriented x 3 Skin: + pertinent finding (Hip wound does not appear acutely cellulitic) Diagnostics Laboratory Results Results Past 24 Hours Test 06/30/17 10:15 06/30/17 10:24 06/30/17 10:32 06/30/17 10:39 Range/Units Urine Color YELLOW Urine Appearance CLOUDY CLEAR Urine pH 5.0 4.5-7.5 Urine Specific [place] 1.021 1.000-1.030 Urine Protein NEG NEG Urine Glucose (UA) NEG NEG Urine Ketones NEG NEG Urine Occult Blood NEG NEG Urine Nitrite NEG NEG Urine Bilirubin NEG NEG Urine Urobilinogen NEG NEG Urine Leukocyte Esterase MODERATE NEG Urine WBC (Auto) 1-5 0-5 /hpf Urine RBC (Auto) 0-4 0-4 /hpf Urine Hyaline Casts (Auto) 1-5 0-5 /lpf Urine Epithelial Cells (Auto) 10-20 0-5 /lpf Urine Bacteria (Auto) NEG NEG Urine Crystals NONE PRSENT Urine Yeast (Auto) BUD W/ HYPHAE NONE PRSENT White Blood Count 1.53 4.8-10.8 K/uL Red Blood Count 5.31 4.7-6.1 M/uL Hemoglobin 13.8 14.0-18.0 g/dL Hematocrit 41.8 42-52 % Mean Corpuscular Volume 78.7 80-100 fL Mean Corpuscular Hemoglobin 26.0 25-34 pg Mean Corpuscular Hemoglobin Concent 33.0 32-36 g/dl Platelet Count 143 130-400 K/uL Mean Platelet Volume 9.9 7.4-10.4 fL RDW Standard Deviation 43.2 36.4-46.3 fL RDW Coefficient of Variation 15.0 11.5-14.5 % Nucleated RBC Absolute Count (auto) 0.02 0-0 K/uL Neutrophils % (Manual) 52.3 % Lymphocytes % (Manual) 35.4 % Metamyelocytes % 1.5 % Myelocytes % 10.8 % Nucleated Red Blood Cells % 1.3 % Neutrophils # (Manual) 0.80 1.4-6.5 K/uL Total Absolute Neutrophils 0.80 1.4-6.5 K/uL Lymphocytes # (Manual) 0.54 1.2-3.4 K/uL Total Absolute Lymphocytes 0.54 1.2-3.4 K/uL Metamyelocytes # 0.02 0-0 K/uL Myelocytes # 0.17 0-0 K/uL Toxic Vacuolation 3+ Erythrocyte Sedimentation Rate 39 0-14 mm/hr Prothrombin Time 11.1 9.0-12.0 SECONDS Prothromb Time International Ratio 1.1 0.9-1.1 Activated Partial Thromboplast Time 26.4 21.0-31.0 SECONDS Partial Thromboplastin Ratio 1.0 Sodium Level 138 136-145 mmol/L Potassium Level 3.4 3.5-5.1 mmol/L Chloride Level 104 98-107 mmol/L Carbon Dioxide Level 25 21-32 mmol/L Anion Gap 9.0 3-11 mmol/L Blood Urea Nitrogen 17 7-18 mg/dl Creatinine 0.98 0.60-1.40 mg/dl Estimated GFR () 91.4 Estimated GFR (Non- 78.9 BUN/Creatinine Ratio 17.6 10-20 Random Glucose 81 70-99 mg/dl Calcium Level 8.3 8.5-10.1 mg/dl Magnesium Level 1.7 1.8-2.4 mg/dl Total Bilirubin 1.1 0.2-1 mg/dl Aspartate Amino Transf (AST/SGOT) 40 15-37 U/L Alanine Aminotransferase (ALT/SGPT) 46 12-78 U/L Alkaline Phosphatase 211 45-117 U/L Total Creatine Kinase 71 39-308 U/L Creatine Kinase MB 0.6 0.5-3.6 ng/ml Creatine Kinase MB Ratio 0.8 0-3.0 Troponin I < 0.015 0-0.045 ng/ml C-Reactive Protein 11.20 0-0.29 mg/dl Pro-B-Type Natriuretic Peptide 394 0-900 pg/ml Total Protein 7.5 6.4-8.2 gm/dl Albumin 3.0 3.4-5.0 gm/dl Globulin 4.5 2.5-4.0 gm/dl Albumin/Globulin Ratio 0.7 0.9-2 Lipase 80 73-393 U/L Venous Blood pH 7.35 7.36-7.41 Venous Blood Partial Pressure CO2 50 38.0-50.0 mmHg Venous Blood Partial Pressure O2 25 mmHg Venous Blood HCO3 27 mmol/L Venous Blood Oxygen Saturation < 60.0 % Venous Blood Base Excess 0.5 mEq/L Bedside Lactic Acid Venous 4.12 0.90-1.70 mmol/L Test 06/30/17 11:00 06/30/17 17:16 Range/Units Influenza Type A (RT-PCR) Neg for Influ A NEG Influenza Type B (RT-PCR) Neg for Influ B NEG Bedside Lactic Acid Venous 3.99 0.90-1.70 mmol/L Microbiology Results 06/30/17 Blood Culture, Received Pending 06/30/17 Blood Culture, Received Pending 06/30/17 Urine Culture, Received Pending Diagnostic Radiology US neck/jugular - A catheter within a right internal jugular vein is noted. There is trace thrombus along the catheter. No occlusive thrombus within the right internal jugular vein is noted. The vessel is patent. Impression Assessment and Plan 66 y/o male with Hx SABRINA on CPAP, morbid obesity, HTN, BPH, gout, GERD - R SURJIT - revision and antibiotic bead therapy 06/12 due to poor wound healing and bacteremia. Pt has been treated with Daptomycin and Invanz since 06/12. Has presented to the hospital with recurrent bacteremia 03/14 and underwent US drainage of joint. Levaquin was added to reg for a period. Last culture on record positive for Stenotrophomonas Maltophilia. The pt has been recovering fairly well - wound has decreased in size and he is able to ambulate. He was at the infusion center today and developed rigors. He was transferred to the hospital therefore. He denies SOB, CP, N/V/D, dysuria. He did complain of R neck pain at the site of his venous catheter. Initial labs are notable for neutropenia and a marginal UA which is (+) for yeast. Additionally, an US of the R jugular shows trace thrombus without occlusion. 1) Infection/bacteremia and sepsis with neutropenia - potential sources would be prosthesis, central line, urine. As he was on broad spectrum antibiotics, is currently neutropenic and has developed bacteremia regardless, we will have to further expand coverage. Pending evaluation by ID and culture results, we have placed the pt on Cefepime, Levaquin for Stenotrophomonas coverage based on most recent sensitivities, Diflucan due to presence of yeast in his urine. We will continue Dapto as well. The pt was evaluated by orthopedics. If it is confirmed that the source of infection is, once again, his hip, he will need to be transferred to a tertiary center for intervention. It is noted that he was advised on surgery previously and has thus far refused. We have consulted general surgery for removal of his Marie and replacement with a temp line until his bacteremia clears. The pt may need a MEGHAN due to his habitus if cultures confirm bacteremia and source remains nondefinitive. The pt received IVF per sepsis protocol in the ER as his SBP has been borderline low. If his BP trends down, he should be transferred to the ICU for pressor support. He is stable on admission. 2) Thrombus in IJ - we will fully anticoagulate with Heparin to avoid propagation. 3) Neutropenia - may be due to Sepsis - not listed as a side effect of Dapto or Invanz - will trend - ID is consulted - broad spectrum coverage as above. 4) SABRINA - pt came equipped with his CPAP 5) HTN - meds held while BP stabilizes 6) BPH - cont Flomax Full code - full dose Heparin Total time for this admit including review of labs, meds, imaging, records - discussion with pt, family, ER attending, orthopedist - 50 min Advanced Directives Existing Living Will: No Existing Power of Frame Straightener: No Resuscitation Status VTE Prophylaxis Will order VTE Prophylaxis: Yes
[2017-06-30 20:00] VITALS: BP 126/62; PULSE 99; TEMP 36.5; O2SAT 97
[2017-06-30] MEDS: D5NSS + 20MEQ KCL 1,000 ML IV SCH (20:04)
[2017-06-30] MEDS: ACETAMINOPHEN 325 MG TAB PO PRN (20:05)
[2017-06-30] MEDS ORDERED: CEFEPIME CONSULT ACTIVE PRN (20:30)
[2017-06-30] MEDS ORDERED: LEVOFLOXACIN CONSULT ACTIVE PRN (20:30)
[2017-06-30] MEDS: LEVOFLOXACIN / D5W 750 MG in PREMIXED IN D5W 150 ML IV SCH (21:51)
[2017-06-30] MEDS: CEFEPIME IV 2,000 MG in SYRINGE 7.5 ML IV SCH (21:51)
[2017-06-30] MEDS: NORTRIPTYLINE HCL 10 MG CAP PO SCH (21:52)
[2017-06-30] MEDS: TAMSULOSIN HCL 0.4 MG CAP PO SCH (21:52)
[2017-06-30] MEDS: FLUCONAZOLE / NSS 200 MG in PREMIXED NSS 100 ML IV SCH (23:35)
[2017-06-30 23:46] VITALS: BP 112/62; PULSE 84; TEMP 37.3; O2SAT 95
[2017-06-30 23:59] VITALS: O2SAT 95
[2017-07-01] VITALS (11 sets, daily range): BP systolic 95–152; BP diastolic 53–84; PULSE 24–87; TEMP 36.5–36.9; O2SAT 91–98
[2017-07-01] MEDS: D5NSS + 20MEQ KCL 1,000 ML IV SCH (04:38)
[2017-07-01] MEDS: CEFEPIME IV 2,000 MG in SYRINGE 7.5 ML IV SCH ×3 (04:38→20:45)
[2017-07-01] MEDS: FINASTERIDE 5 MG TAB PO SCH (07:41)
[2017-07-01] MEDS: ALLOPURINOL 300 MG TAB PO SCH (07:42)
[2017-07-01] MEDS: TAMSULOSIN HCL 0.4 MG CAP PO SCH ×2 (07:42→20:46)
[2017-07-01] MEDS: CYANOCOBALAMIN 500 MCG TAB (VIT B-12) PO SCH (07:43)
[2017-07-01] MEDS: DAPTOMYCIN IV SCH (07:44)
[2017-07-01 07:57] LABS: HEMATOCRIT 34.3 % (42-52); HEMOGLOBIN 11.3 g/dL (14.0-18.0); MEAN CELL VOLUME 78.1 fL (80-100); MEAN CORPUSCULAR HEMOGLOBIN 25.7 pg (25-34); MEAN CORPUSCULAR HGB CONC 32.9 g/dl (32-36); MEAN PLATELET VOLUME 10.1 fL (7.4-10.4); PLATELET COUNT 119 K/uL (130-400); RED CELL DISTRIBUTION WIDTH CV 15.4 % (11.5-14.5); WHITE BLOOD COUNT 16.63 K/uL (4.8-10.8)
[2017-07-01 08:09] LABS: BASO % 0.2 %; BASO ABS # 0.03 K/uL (0-0.2); IG# 0.26 K/uL (0.00-0.02); LYMPH % 7.4 %; LYMPH ABS # 1.23 K/uL (1.2-3.4); MONO % 7.8 %; MONO ABS # 1.29 K/uL (0.11-0.59); NEUT ABS # 13.82 K/uL (1.4-6.5)
--- NOTE | 2017-07-01 08:13 | Medical Consult ---
Consultation Date of Consultation: Jul 01, 2017. Attending Physician: Claudio Terry D.O. Reason for Consultation: Marie Cath removal. History of Present Illness Mr. Lopez is a 67-year-old male, well known to Dr. Montalvo, s/p Insertion of Marie catheter into right subclavian vein (April 01, 2017) due to infected knee prosthesis, skilled nursing antibiotic use, poor venous access. Patient was sent to [facility] ED yesterday from infusion center after developing rigors. WBC on admission 1.53. WBC today 16.63. Chest x-ray 1. Right subclavian central venous catheter which appears to extend cephalad into the right internal jugular vein. Clinical correlation and repositioning should be considered. 2. No evidence of focal pulmonary consolidation. Doppler US of Right Internal Jugular- Trace thrombus adherent to the right internal jugular vein catheter. Overall, patient feeling well- no acute distress. Past Medical/Surgical History Medical Problems: (1) Febrile illness Status: Acute (2) Neutropenia Status: Acute (3) Postoperative wound infection of right hip Status: Acute (4) Sepsis Status: Acute (5) Unspecified open wound, right hip, sequela Status: Acute Family History Heart Disease Hypertension Parkinson's Disease Social History Smoking Status: Never Smoker Drug Use: none Marital Status: Housing Status: lives with family Occupation Status: retired Allergies Coded Allergies: No Known Allergies (Unverified , 06/30/17) Current Inpatient Medications Current Inpatient Medications Medications (Trade) Dose Ordered Sig/Chris Route Start Time Stop Time Status Last Admin Dose Admin Allopurinol (Zyloprim Tab) 300 mg QAM PO 07/01/17 09:00 07/31/17 08:59 07/01/17 07:42 300 MG Atenolol (Tenormin Tab) 25 mg QAM PO 07/01/17 09:00 07/31/17 08:59 07/01/17 07:43 25 MG Finasteride (Proscar Tab) 5 mg QAM PO 07/01/17 09:00 07/31/17 08:59 07/01/17 07:41 5 MG Nortriptyline HCl (Pamelor Cap) 20 mg HS PO 06/30/17 21:00 07/30/17 20:59 06/30/17 21:52 20 MG Tamsulosin HCl (Flomax Cap) 0.4 mg BID PO 06/30/17 21:00 07/30/17 20:59 07/01/17 07:42 0.4 MG Cyanocobalamin (Vitamin B-12 Tab) 1,000 mcg QAM PO 07/01/17 09:00 07/31/17 08:59 07/01/17 07:43 1,000 MCG Fluconazole/ Sodium Chloride 200 mg/Prmx 100 ml @ 100 mls/hr Q24H IV 06/30/17 21:00 07/10/17 20:59 06/30/17 23:35 100 MLS/HR Cefepime HCl 2000 mg/Syringe 20 ml @ 5 mls/min Q8H IV 06/30/17 20:00 08/11/17 19:59 07/01/17 04:38 5 MLS/MIN Levofloxacin 750 mg/Prmx 150 ml @ 100 mls/hr Q24H IV 06/30/17 20:00 08/11/17 19:59 06/30/17 21:51 100 MLS/HR Acetaminophen (Tylenol Tab) 650 mg Q4H PRN PO 06/30/17 18:30 07/30/17 18:29 06/30/17 20:05 650 MG Al Hydrox/Mg Hydrox/Simethicone (Maalox Max Susp) 15 ml Q4H PRN PO 06/30/17 18:30 07/30/17 18:29 Magnesium Hydroxide (Milk Of Magnesia Susp) 30 ml Q12H PRN PO 06/30/17 18:30 07/30/17 18:29 Zolpidem Tartrate (Ambien Tab) 5 mg HSZ PRN PO 06/30/17 18:30 07/30/17 18:29 Ondansetron HCl (Zofran Inj) 4 mg Q6H PRN IV 06/30/17 18:30 07/30/17 18:29 06/30/17 23:57 4 MG Morphine Sulfate (MoRPHine SULFATE INJ) 2 mg Q30M PRN IV 06/30/17 18:30 07/14/17 18:29 Polyethylene (Miralax Powder Packet) 17 gm DAILY PRN PO 06/30/17 18:30 07/30/17 18:29 Potassium Chloride/Dextrose/ Sod Cl 1,000 ml @ 150 mls/hr Q6H40M IV 06/30/17 20:00 07/01/17 09:19 07/01/17 04:38 150 MLS/HR Daptomycin 900 mg/ Syringe 18 ml @ 9 mls/min DAILY IV 07/01/17 09:00 07/31/17 08:59 07/01/17 07:44 9 MLS/MIN Cefepime HCl (Consult) 1 ea UD PRN N/A 06/30/17 20:30 07/30/17 20:29 Levofloxacin (Consult) 1 ea UD PRN N/A 06/30/17 20:30 07/30/17 20:29 Review of Systems Constitutional: No fever, No chills Integumentary: No rash Physical Exam Date Time Temp Pulse Resp B/P (MAP) Pulse Ox O2 Delivery O2 Flow Rate FiO2 07/01/17 07:49 36.8 81 20 119/67 (84) 96 07/01/17 04:00 95 CPAP 2.0 07/01/17 03:30 36.9 71 14 95/63 (74) 92 CPAP 06/30/17 23:59 95 CPAP 2.0 06/30/17 23:46 37.3 84 16 112/62 (79) 95 CPAP 06/30/17 20:00 36.5 99 22 126/62 (83) 97 Nasal Cannula 2.0 06/30/17 19:12 101 28 73/43 93 06/30/17 18:53 94 Nasal Cannula 2.0 06/30/17 18:46 78/48 06/30/17 18:45 100 20 06/30/17 18:31 88/46 06/30/17 18:30 105 24 06/30/17 18:16 100/66 06/30/17 18:15 104 21 94 Nasal Cannula 2.0 06/30/17 18:01 126/79 06/30/17 18:00 102 27 92 Nasal Cannula 2.0 06/30/17 17:46 101/58 06/30/17 17:45 104 19 94 Nasal Cannula 2.0 06/30/17 17:31 103/58 06/30/17 17:30 102 25 91 Nasal Cannula 2.0 06/30/17 17:27 99/57 06/30/17 17:21 104 10 95 Nasal Cannula 2.0 06/30/17 17:06 104 15 90 Room Air 06/30/17 17:01 101/56 06/30/17 16:51 104 20 91 Room Air 06/30/17 16:46 97/52 06/30/17 16:45 102/50 06/30/17 16:37 73/44 88 Room Air 06/30/17 16:37 91 Room Air 06/30/17 16:36 105 21 91 06/30/17 16:31 82/44 06/30/17 16:30 97 17 06/30/17 16:01 107/61 06/30/17 16:00 107 16 06/30/17 15:31 86/47 06/30/17 15:30 106 19 06/30/17 15:23 94 Room Air 06/30/17 15:01 103/53 06/30/17 15:00 110 17 06/30/17 14:31 108 22 100/50 96 Room Air 06/30/17 13:36 109 20 105/60 93 Room Air 06/30/17 13:04 112 06/30/17 12:53 95 Room Air 06/30/17 12:36 115 22 122/62 95 Room Air 06/30/17 10:50 102 21 92/54 99 Room Air 06/30/17 09:31 Room Air 06/30/17 09:27 84 06/30/17 09:24 36.8 92 28 177/124 97 Room Air General Appearance: WD/WN, no apparent distress Head: normocephalic, atraumatic Respiratory/Chest: no respiratory distress Skin: normal color, warm/dry Laboratory Results Last 24 Hours Test 06/30/17 10:15 06/30/17 10:24 06/30/17 10:32 06/30/17 10:39 Urine Color YELLOW Urine Appearance CLOUDY Urine pH 5.0 Urine Specific [place] 1.021 Urine Protein NEG Urine Glucose (UA) NEG Urine Ketones NEG Urine Occult Blood NEG Urine Nitrite NEG Urine Bilirubin NEG Urine Urobilinogen NEG Urine Leukocyte Esterase MODERATE Urine WBC (Auto) 1-5 /hpf Urine RBC (Auto) 0-4 /hpf Urine Hyaline Casts (Auto) 1-5 /lpf Urine Epithelial Cells (Auto) 10-20 /lpf Urine Bacteria (Auto) NEG Urine Crystals Urine Yeast (Auto) BUD W/ HYPHAE White Blood Count 1.53 K/uL Red Blood Count 5.31 M/uL Hemoglobin 13.8 g/dL Hematocrit 41.8 % Mean Corpuscular Volume 78.7 fL Mean Corpuscular Hemoglobin 26.0 pg Mean Corpuscular Hemoglobin Concent 33.0 g/dl Platelet Count 143 K/uL Mean Platelet Volume 9.9 fL RDW Standard Deviation 43.2 fL RDW Coefficient of Variation 15.0 % Nucleated RBC Absolute Count (auto) 0.02 K/uL Neutrophils % (Manual) 52.3 % Lymphocytes % (Manual) 35.4 % Metamyelocytes % 1.5 % Myelocytes % 10.8 % Nucleated Red Blood Cells % 1.3 % Neutrophils # (Manual) 0.80 K/uL Total Absolute Neutrophils 0.80 K/uL Lymphocytes # (Manual) 0.54 K/uL Total Absolute Lymphocytes 0.54 K/uL Metamyelocytes # 0.02 K/uL Myelocytes # 0.17 K/uL Toxic Vacuolation 3+ Erythrocyte Sedimentation Rate 39 mm/hr Prothrombin Time 11.1 SECONDS Prothromb Time International Ratio 1.1 Activated Partial Thromboplast Time 26.4 SECONDS Partial Thromboplastin Ratio 1.0 Sodium Level 138 mmol/L Potassium Level 3.4 mmol/L Chloride Level 104 mmol/L Carbon Dioxide Level 25 mmol/L Anion Gap 9.0 mmol/L Blood Urea Nitrogen 17 mg/dl Creatinine 0.98 mg/dl Estimated GFR () 91.4 Estimated GFR (Non- 78.9 BUN/Creatinine Ratio 17.6 Random Glucose 81 mg/dl Calcium Level 8.3 mg/dl Magnesium Level 1.7 mg/dl Total Bilirubin 1.1 mg/dl Aspartate Amino Transf (AST/SGOT) 40 U/L Alanine Aminotransferase (ALT/SGPT) 46 U/L Alkaline Phosphatase 211 U/L Total Creatine Kinase 71 U/L Creatine Kinase MB 0.6 ng/ml Creatine Kinase MB Ratio 0.8 Troponin I < 0.015 ng/ml C-Reactive Protein 11.20 mg/dl Pro-B-Type Natriuretic Peptide 394 pg/ml Total Protein 7.5 gm/dl Albumin 3.0 gm/dl Globulin 4.5 gm/dl Albumin/Globulin Ratio 0.7 Lipase 80 U/L Venous Blood pH 7.35 Venous Blood Partial Pressure CO2 50 mmHg Venous Blood Partial Pressure O2 25 mmHg Venous Blood HCO3 27 mmol/L Venous Blood Oxygen Saturation < 60.0 % Venous Blood Base Excess 0.5 mEq/L Bedside Lactic Acid Venous 4.12 mmol/L Test 06/30/17 11:00 06/30/17 17:16 07/01/17 07:37 Influenza Type A (RT-PCR) Neg for Influ A Influenza Type B (RT-PCR) Neg for Influ B Bedside Lactic Acid Venous 3.99 mmol/L White Blood Count 16.63 K/uL Red Blood Count 4.39 M/uL Hemoglobin 11.3 g/dL Hematocrit 34.3 % Mean Corpuscular Volume 78.1 fL Mean Corpuscular Hemoglobin 25.7 pg Mean Corpuscular Hemoglobin Concent 32.9 g/dl Platelet Count 119 K/uL Mean Platelet Volume 10.1 fL RDW Standard Deviation 44.0 fL RDW Coefficient of Variation 15.4 % Assessment & Plan 67-year-old male s/p Insertion of Marie catheter into right subclavian vein ( April 01, 2017) due to infected knee prosthesis, skilled nursing antibiotic use, poor venous access- now with migration of Marie from subclavian up into neck. Patient seen and examined with Dr. Montalvo. Will plan for Removal of Marie Catheter today in OR. Patient made NPO- unfortunately, had breakfast tray this AM. Will proceed with removal in OR later today. Reviewed and discussed removal with patient- will not replace catheter at this time due to active infection. Patient understands and agrees with plan.
--- NOTE | 2017-07-01 08:20 | SURGICAL CONSULTATION ---
DATE OF ADMISSION: 07/01/2017 I was asked to see Timothy regarding a Marie catheter. The catheter was working fine until Wednesday whenever they were having trouble accessing it. The patient was admitted with sepsis. The catheter itself, the entry site is free of any infection. There is no infection in the tract itself. He does complain of some neck pain. I reviewed the x-ray. The catheter that had been in the superior vena cava right atrial area has migrated up to right internal jugular. At this point, we will remove the catheter later today. Due to his infection, we will not be able to put any other catheter at this time. The plans are that he is going to be evaluated at [place] for a further therapy and potentially they can put the catheter there if he is in the hospital and needs one.
[2017-07-01 08:24] LABS: ALBUMIN 2.3 gm/dl (3.4-5.0); CALCIUM 7.9 mg/dl (8.5-10.1); CREATININE 0.78 mg/dl (0.60-1.40); POTASSIUM 3.8 mmol/L (3.5-5.1)
[2017-07-01 08:33] LABS: TOTAL PROTEIN 6.2 gm/dl (6.4-8.2)
[2017-07-01] MEDS ORDERED: DAPTOmycin 500 MG VIAL IV SCH (09:00)
--- NOTE | 2017-07-01 09:53 | Clinical Documentation Query ---
CLINICAL DOCUMENTATION QUERY 66 yo male with BMI of 57 wears CPAP at night and has a history of obstructive sleep apnea. In your clinical opinion is this patient being managed for: (x ) Morbid obesity with alveolar hypoventilation ( ) Not Agree ( ) Other explanation of clinical findings (Please Explain) ( ) Unable to determine (Please Define) ( ) Need to Discuss The medical record reflects the following clinical findings, treatment, and risk factors. Clinical Indicators: As above Treatment: CPAP, heart healthy diet Risk Factors: Morbid obesity, SABRINA, use of CPAP Please clarify and document your clinical opinion in the progress notes and discharge summary. Terms such as "probable", "suspected", "likely", "questionable", "possible", or "still to be ruled out" are acceptable. IF IN AGREEMENT, YOU MUST DOCUMENT ABOVE DIAGNOSTIC STATEMENT IN DAILY PROGRESS NOTES AND DISCHARGE SUMMARY. This document is not part of the patient's record. Thank You, Lisbeth Valdes RN [phone]
--- NOTE | 2017-07-01 10:24 | Medical Consult ---
Consultation Date of Consultation: Jul 01, 2017. Attending Physician: Claudio Terry D.O. Reason for Consultation: Recurrent bacteremia History of Present Illness 67-year-old male well known to the Infectious Disease service, being followed for nonhealing right hip wound, currently on treatment with daptomycin and ertapenem he with improvement, prior episode of stenotrophomonas bacteremia, who now presents with several days of fever, chills, and weakness. Ultimately came to the hospital and admitted with possible sepsis, and now growing gram- negative bacilli in blood cultures. Currently on cefepime and levofloxacin. Has been seen by surgery and plans for removal of his indwelling PICC line catheter for later today. He denies any significant problems with the catheter , no evidence of infection at the exit site. Denies any significant cough, urinary complaints, or abdominal complaints. Right wound has continued to heal without evidence of infection. Past Medical/Surgical History Medical Problems: (1) Febrile illness Status: Acute (2) Neutropenia Status: Acute (3) Postoperative wound infection of right hip Status: Acute (4) Sepsis Status: Acute (5) Unspecified open wound, right hip, sequela Status: Acute Medical Problems: (1) Bacteremia (2) Knee pain (3) Positive blood culture (4) Post op infection (5) Right Hip Wound Drainage Surgical Problems: (1) Post-operative state (2) Post-operative state Family History Heart Disease Hypertension Parkinson's Disease Social History Smoking Status: Never Smoker Drug Use: none Marital Status: Housing Status: lives with family Occupation Status: retired Allergies Coded Allergies: No Known Allergies (Unverified , 06/30/17) Current Inpatient Medications Current Inpatient Medications Medications (Trade) Dose Ordered Sig/Chris Route Start Time Stop Time Status Last Admin Dose Admin Allopurinol (Zyloprim Tab) 300 mg QAM PO 07/01/17 09:00 07/31/17 08:59 07/01/17 07:42 300 MG Atenolol (Tenormin Tab) 25 mg QAM PO 07/01/17 09:00 07/31/17 08:59 07/01/17 07:43 25 MG Finasteride (Proscar Tab) 5 mg QAM PO 07/01/17 09:00 07/31/17 08:59 07/01/17 07:41 5 MG Nortriptyline HCl (Pamelor Cap) 20 mg HS PO 06/30/17 21:00 07/30/17 20:59 06/30/17 21:52 20 MG Tamsulosin HCl (Flomax Cap) 0.4 mg BID PO 06/30/17 21:00 07/30/17 20:59 07/01/17 07:42 0.4 MG Cyanocobalamin (Vitamin B-12 Tab) 1,000 mcg QAM PO 07/01/17 09:00 07/31/17 08:59 07/01/17 07:43 1,000 MCG Fluconazole/ Sodium Chloride 200 mg/Prmx 100 ml @ 100 mls/hr Q24H IV 06/30/17 21:00 07/10/17 20:59 06/30/17 23:35 100 MLS/HR Cefepime HCl 2000 mg/Syringe 20 ml @ 5 mls/min Q8H IV 06/30/17 20:00 08/11/17 19:59 07/01/17 04:38 5 MLS/MIN Levofloxacin 750 mg/Prmx 150 ml @ 100 mls/hr Q24H IV 06/30/17 20:00 08/11/17 19:59 06/30/17 21:51 100 MLS/HR Acetaminophen (Tylenol Tab) 650 mg Q4H PRN PO 06/30/17 18:30 07/30/17 18:29 06/30/17 20:05 650 MG Al Hydrox/Mg Hydrox/Simethicone (Maalox Max Susp) 15 ml Q4H PRN PO 06/30/17 18:30 07/30/17 18:29 Magnesium Hydroxide (Milk Of Magnesia Susp) 30 ml Q12H PRN PO 06/30/17 18:30 07/30/17 18:29 Zolpidem Tartrate (Ambien Tab) 5 mg HSZ PRN PO 06/30/17 18:30 07/30/17 18:29 Ondansetron HCl (Zofran Inj) 4 mg Q6H PRN IV 06/30/17 18:30 07/30/17 18:29 06/30/17 23:57 4 MG Morphine Sulfate (MoRPHine SULFATE INJ) 2 mg Q30M PRN IV 06/30/17 18:30 07/14/17 18:29 Polyethylene (Miralax Powder Packet) 17 gm DAILY PRN PO 06/30/17 18:30 07/30/17 18:29 Daptomycin 900 mg/ Syringe 18 ml @ 9 mls/min DAILY IV 07/01/17 09:00 07/31/17 08:59 07/01/17 07:44 9 MLS/MIN Cefepime HCl (Consult) 1 ea UD PRN N/A 06/30/17 20:30 07/30/17 20:29 Levofloxacin (Consult) 1 ea UD PRN N/A 06/30/17 20:30 07/30/17 20:29 Heparin Sodium/ Dextrose 1 ea NOW STAT N/A 07/01/17 10:14 07/01/17 10:15 UNV Review of Systems All systems were reviewed and are negative except as per HPI Physical Exam Date Time Temp Pulse Resp B/P (MAP) Pulse Ox O2 Delivery O2 Flow Rate FiO2 07/01/17 08:00 96 CPAP 2.0 07/01/17 07:49 36.8 81 20 119/67 (84) 96 07/01/17 04:00 95 CPAP 2.0 07/01/17 03:30 36.9 71 14 95/63 (74) 92 CPAP 06/30/17 23:59 95 CPAP 2.0 06/30/17 23:46 37.3 84 16 112/62 (79) 95 CPAP 06/30/17 20:00 36.5 99 22 126/62 (83) 97 Nasal Cannula 2.0 06/30/17 19:12 101 28 73/43 93 06/30/17 18:53 94 Nasal Cannula 2.0 06/30/17 18:46 78/48 06/30/17 18:45 100 20 06/30/17 18:31 88/46 06/30/17 18:30 105 24 06/30/17 18:16 100/66 06/30/17 18:15 104 21 94 Nasal Cannula 2.0 06/30/17 18:01 126/79 06/30/17 18:00 102 27 92 Nasal Cannula 2.0 06/30/17 17:46 101/58 06/30/17 17:45 104 19 94 Nasal Cannula 2.0 06/30/17 17:31 103/58 06/30/17 17:30 102 25 91 Nasal Cannula 2.0 06/30/17 17:27 99/57 06/30/17 17:21 104 10 95 Nasal Cannula 2.0 06/30/17 17:06 104 15 90 Room Air 06/30/17 17:01 101/56 06/30/17 16:51 104 20 91 Room Air 06/30/17 16:46 97/52 06/30/17 16:45 102/50 06/30/17 16:37 73/44 88 Room Air 06/30/17 16:37 91 Room Air 06/30/17 16:36 105 21 91 06/30/17 16:31 82/44 06/30/17 16:30 97 17 06/30/17 16:01 107/61 06/30/17 16:00 107 16 06/30/17 15:31 86/47 06/30/17 15:30 106 19 06/30/17 15:23 94 Room Air 06/30/17 15:01 103/53 06/30/17 15:00 110 17 06/30/17 14:31 108 22 100/50 96 Room Air 06/30/17 13:36 109 20 105/60 93 Room Air 06/30/17 13:04 112 06/30/17 12:53 95 Room Air 06/30/17 12:36 115 22 122/62 95 Room Air 06/30/17 10:50 102 21 92/54 99 Room Air General Appearance: WD/WN, no apparent distress, + obese Head: normocephalic, atraumatic Eyes: normal inspection, PERRL, EOMI ENT: normal ENT inspection, hearing grossly normal, pharynx normal Neck: supple, no adenopathy, thyroid normal, trachea midline Respiratory/Chest: chest non-tender, lungs clear, normal breath sounds, no respiratory distress Cardiovascular: regular rate, rhythm, no gallop, no murmur Abdomen/GI: normal bowel sounds, non tender, soft, no organomegaly Back: normal inspection, no CVA tenderness Extremities/Musculoskelatal: normal inspection, no calf tenderness, non-tender Neurologic/Psych: alert, normal mood/affect, oriented x 3 Skin: normal color, no rash, + pertinent finding (Chronic venous stasis changes of both lower extremities, PICC line site appears clean) Lymphatic: no adenopathy Laboratory Results Date/Time Source Procedure Growth Status 06/30/17 10:32 Blood Blood Culture - Preliminary Gram Negative Bacilli Resulted 06/30/17 10:24 Blood Blood Culture - Preliminary Gram Negative Bacilli Resulted Last 24 Hours Test 06/30/17 10:24 06/30/17 10:32 06/30/17 10:39 06/30/17 11:00 White Blood Count 1.53 K/uL Red Blood Count 5.31 M/uL Hemoglobin 13.8 g/dL Hematocrit 41.8 % Mean Corpuscular Volume 78.7 fL Mean Corpuscular Hemoglobin 26.0 pg Mean Corpuscular Hemoglobin Concent 33.0 g/dl Platelet Count 143 K/uL Mean Platelet Volume 9.9 fL RDW Standard Deviation 43.2 fL RDW Coefficient of Variation 15.0 % Nucleated RBC Absolute Count (auto) 0.02 K/uL Neutrophils % (Manual) 52.3 % Lymphocytes % (Manual) 35.4 % Metamyelocytes % 1.5 % Myelocytes % 10.8 % Nucleated Red Blood Cells % 1.3 % Neutrophils # (Manual) 0.80 K/uL Total Absolute Neutrophils 0.80 K/uL Lymphocytes # (Manual) 0.54 K/uL Total Absolute Lymphocytes 0.54 K/uL Metamyelocytes # 0.02 K/uL Myelocytes # 0.17 K/uL Toxic Vacuolation 3+ Erythrocyte Sedimentation Rate 39 mm/hr Prothrombin Time 11.1 SECONDS Prothromb Time International Ratio 1.1 Activated Partial Thromboplast Time 26.4 SECONDS Partial Thromboplastin Ratio 1.0 Sodium Level 138 mmol/L Potassium Level 3.4 mmol/L Chloride Level 104 mmol/L Carbon Dioxide Level 25 mmol/L Anion Gap 9.0 mmol/L Blood Urea Nitrogen 17 mg/dl Creatinine 0.98 mg/dl Estimated GFR () 91.4 Estimated GFR (Non- 78.9 BUN/Creatinine Ratio 17.6 Random Glucose 81 mg/dl Calcium Level 8.3 mg/dl Magnesium Level 1.7 mg/dl Total Bilirubin 1.1 mg/dl Aspartate Amino Transf (AST/SGOT) 40 U/L Alanine Aminotransferase (ALT/SGPT) 46 U/L Alkaline Phosphatase 211 U/L Total Creatine Kinase 71 U/L Creatine Kinase MB 0.6 ng/ml Creatine Kinase MB Ratio 0.8 Troponin I < 0.015 ng/ml C-Reactive Protein 11.20 mg/dl Pro-B-Type Natriuretic Peptide 394 pg/ml Total Protein 7.5 gm/dl Albumin 3.0 gm/dl Globulin 4.5 gm/dl Albumin/Globulin Ratio 0.7 Lipase 80 U/L Venous Blood pH 7.35 Venous Blood Partial Pressure CO2 50 mmHg Venous Blood Partial Pressure O2 25 mmHg Venous Blood HCO3 27 mmol/L Venous Blood Oxygen Saturation < 60.0 % Venous Blood Base Excess 0.5 mEq/L Bedside Lactic Acid Venous 4.12 mmol/L Influenza Type A (RT-PCR) Neg for Influ A Influenza Type B (RT-PCR) Neg for Influ B Test 06/30/17 17:16 07/01/17 07:37 Bedside Lactic Acid Venous 3.99 mmol/L White Blood Count 16.63 K/uL Red Blood Count 4.39 M/uL Hemoglobin 11.3 g/dL Hematocrit 34.3 % Mean Corpuscular Volume 78.1 fL Mean Corpuscular Hemoglobin 25.7 pg Mean Corpuscular Hemoglobin Concent 32.9 g/dl Platelet Count 119 K/uL Mean Platelet Volume 10.1 fL Neutrophils (%) (Auto) 83.0 % Lymphocytes (%) (Auto) 7.4 % Monocytes (%) (Auto) 7.8 % Eosinophils (%) (Auto) 0.0 % Basophils (%) (Auto) 0.2 % Neutrophils # (Auto) 13.82 K/uL Lymphocytes # (Auto) 1.23 K/uL Monocytes # (Auto) 1.29 K/uL Eosinophils # (Auto) 0.00 K/uL Basophils # (Auto) 0.03 K/uL RDW Standard Deviation 44.0 fL RDW Coefficient of Variation 15.4 % Immature Granulocyte % (Auto) 1.6 % Immature Granulocyte # (Auto) 0.26 K/uL Hyposegmented Neutrophils 1+ Toxic Vacuolation 1+ Sodium Level 139 mmol/L Potassium Level 3.8 mmol/L Chloride Level 107 mmol/L Carbon Dioxide Level 24 mmol/L Anion Gap 8.0 mmol/L Blood Urea Nitrogen 15 mg/dl Creatinine 0.78 mg/dl Est Creatinine Clear Calc Drug Dose 139.9 ml/min Estimated GFR () 107.5 Estimated GFR (Non- 92.8 BUN/Creatinine Ratio 18.7 Random Glucose 116 mg/dl Lactic Acid Level 2.1 mmol/L Calcium Level 7.9 mg/dl Total Bilirubin 1.7 mg/dl Aspartate Amino Transf (AST/SGOT) 114 U/L Alanine Aminotransferase (ALT/SGPT) 93 U/L Alkaline Phosphatase 144 U/L Total Protein 6.2 gm/dl Albumin 2.3 gm/dl Globulin 3.9 gm/dl Albumin/Globulin Ratio 0.6 [~ rep ct add3]] CHEST ONE VIEW PORTABLE CLINICAL HISTORY: Sepsis COMPARISON STUDY: April 01, 2017 FINDINGS: There is a right subclavian central venous catheter which appears to extend into the internal jugular vein. The tip is not visualized on this study. Clinical correlation is advocated repositioning should be considered. The cardiac and mediastinal contours remain stable. There is no focal pulmonary consolidation. Slight interstitial prominence, is likely accentuated due to the patient's body habitus.[ IMPRESSION: 1. Right subclavian central venous catheter which appears to extend cephalad into the right internal jugular vein. Clinical correlation and repositioning should be considered. 2. No evidence of focal pulmonary consolidation Electronically signed by: Reid Burrell M.D. 06/30/2017 9:36 AM Dictated Date/Time: 06/30/2017 9:34 AM The status of this report is Signed. Draft = Not yet reviewed or approved by Radiologist. Assessment & Plan 67-year-old male with Gram-negative bacteremia likely from MN catheter infection , no obvious evidence of worsening right hip infection. Agree with need for removal of catheter. Patient will be continued on cefepime and levofloxacin pending final identification and sensitivities. Will follow.
[2017-07-01] MEDS ORDERED: BUPIVACAINE 0.5 % 5 MG/1 ML MPF 30ML VIAL ONE (10:51)
--- NOTE | 2017-07-01 11:06 | [facility] Post Operative Brief Note ---
Immediate Operative Summary Operative Date Jul 01, 2017. Pre-Operative Diagnosis Exhausted Marie catheter Post-Operative Diagnosis Same Procedure(s) Performed Removal of Marie Catheter Surgeon Dr Montalvo Optical Worker Surgeon(s) Maurizio Chang PA-C Estimated Blood Loss 0ml Findings See Below as preop Specimens Culture #1 Marie catheter for gram stain, aerobic and anaerobic Anesthesia Type Local
[2017-07-01] MEDS ORDERED: HYDROCODONE/ACETAMIN 5/325MG TAB PO PRN (11:15)
[2017-07-01 11:45] LABS: INR 1.2 (0.9-1.1); PTT PATIENT 33.2 SECONDS (21.0-31.0)
[2017-07-01] MEDS ORDERED: HEPARIN 25000 UNIT/ D5W 500 ML (PHARMACY PREPARED) IV PRN ×2 (11:45)
[2017-07-01] MEDS ORDERED: HEPARIN 25,000 UNIT/500ML D5W 500 ML IV SCH (12:15)
[2017-07-01] MEDS ORDERED: HEPARIN IV BOLUS 9,000 UNIT in SYRINGE 0 ML IV ONE (12:15)
--- NOTE | 2017-07-01 14:35 | OPERATIVE REPORT ---
DATE OF OPERATION: 07/01/2017 SURGEON: Dr. Montalvo. [employer] PARTS INSPECTOR: Christian Chang PA-C. PREOPERATIVE DIAGNOSIS: Exhausted Marie catheter, right subclavian. POSTOPERATIVE DIAGNOSIS: Same. PROCEDURE: Removal Marie catheter. SUMMARY: The patient right chest and neck all the way part of catheter was prepped with Betadine solution and properly draped. The patient had a Marie catheter inserted, a second one in the last 6 months. This one was inserted the beginning of March where even up to about 2 weeks ago it was in the proper position and functioning well. Then apparently on Wednesday, was having difficulty with drawing blood. The patient came in with what appeared to be sepsis. Chest x-ray revealed that the catheter which was in proper position in superior vena cava had migrated up to the internal jugular vein. The patient was experiencing some discomfort in the neck area; therefore, it was elected to remove it because it was nonfunctioning and secondly there may have been some thrombus around the vein. There was no sign of infection. Actually the sutures that we initially put it in March were still intact and they never were removed. Therefore, we used local anesthetic to infiltrate right at the entry site and up about 2 inches into the alleged tract that was coming into the subclavian. We could not really palpate the Dacron cuff. Sutures were removed. Then we opened up the entry site a little bit then were able to elevate it out and we will certainly were pretty close with the Dacron cuff; therefore, we removed it and the catheter was removed in total. The patient was held pressure in the subclavian area for approximately 5 minutes. The incision was closed with interrupted 2-0 Dexon sutures. A 2 x 2 with an Op-Site was positioned after held pressure for approximately 5 minutes. There was no bleeding. The tip of the catheter was sent for cultures for aerobes and anaerobes. The procedure was tolerated well by the patient. Estimated blood loss was minimal. Amount of local used approximately 10 mL. I attest to the content of the Intraoperative Record and any orders documented therein. Any exception s are noted below.
--- NOTE | 2017-07-01 14:54 | Progress Note ---
Subjective Date of Service: Jul 01, 2017. Subjective Pt evaluation today including: conversation w/ patient, physical exam, lab review, review of studies, conversation w/ specialty sales consultant, review of inpatient medication list Pain: no pain PO Intake: NPO for catheter removal Voiding: no voiding problems patient has felt well since admission, no rigors, no fever blood cultures both gram negative rods reviewed labs, WBC up to 16k from 1k, lactic acid down to 2.1, Cr stable discussed with Dr. Purcell, likely a line infection, continue Cefepime and Levaquin appreciate general surgery removing catheter patient reports no pain in right hip, his wound is healing well Problem List Medical Problems: (1) Febrile illness Status: Acute (2) Neutropenia Status: Acute (3) Postoperative wound infection of right hip Status: Acute (4) Sepsis Status: Acute (5) Unspecified open wound, right hip, sequela Status: Acute Review of Systems Constitutional: + weakness, + fatigue All Other Systems: Reviewed and Negative Medications Current Inpatient Medications Medications (Trade) Dose Ordered Sig/Chris Route Start Time Stop Time Status Last Admin Dose Admin Allopurinol (Zyloprim Tab) 300 mg QAM PO 07/01/17 09:00 07/31/17 08:59 07/01/17 07:42 300 MG Atenolol (Tenormin Tab) 25 mg QAM PO 07/01/17 09:00 07/31/17 08:59 07/01/17 07:43 25 MG Finasteride (Proscar Tab) 5 mg QAM PO 07/01/17 09:00 07/31/17 08:59 07/01/17 07:41 5 MG Nortriptyline HCl (Pamelor Cap) 20 mg HS PO 06/30/17 21:00 07/30/17 20:59 06/30/17 21:52 20 MG Tamsulosin HCl (Flomax Cap) 0.4 mg BID PO 06/30/17 21:00 07/30/17 20:59 07/01/17 07:42 0.4 MG Cyanocobalamin (Vitamin B-12 Tab) 1,000 mcg QAM PO 07/01/17 09:00 07/31/17 08:59 07/01/17 07:43 1,000 MCG Fluconazole/ Sodium Chloride 200 mg/Prmx 100 ml @ 100 mls/hr Q24H IV 06/30/17 21:00 07/10/17 20:59 06/30/17 23:35 100 MLS/HR Cefepime HCl 2000 mg/Syringe 20 ml @ 5 mls/min Q8H IV 06/30/17 20:00 08/11/17 19:59 07/01/17 12:00 5 MLS/MIN Levofloxacin 750 mg/Prmx 150 ml @ 100 mls/hr Q24H IV 06/30/17 20:00 08/11/17 19:59 06/30/17 21:51 100 MLS/HR Acetaminophen (Tylenol Tab) 650 mg Q4H PRN PO 06/30/17 18:30 07/30/17 18:29 06/30/17 20:05 650 MG Al Hydrox/Mg Hydrox/Simethicone (Maalox Max Susp) 15 ml Q4H PRN PO 06/30/17 18:30 07/30/17 18:29 Magnesium Hydroxide (Milk Of Magnesia Susp) 30 ml Q12H PRN PO 06/30/17 18:30 07/30/17 18:29 Zolpidem Tartrate (Ambien Tab) 5 mg HSZ PRN PO 06/30/17 18:30 07/30/17 18:29 Ondansetron HCl (Zofran Inj) 4 mg Q6H PRN IV 06/30/17 18:30 07/30/17 18:29 06/30/17 23:57 4 MG Morphine Sulfate (MoRPHine SULFATE INJ) 2 mg Q30M PRN IV 06/30/17 18:30 07/14/17 18:29 Polyethylene (Miralax Powder Packet) 17 gm DAILY PRN PO 06/30/17 18:30 07/30/17 18:29 Daptomycin 900 mg/ Syringe 18 ml @ 9 mls/min DAILY IV 07/01/17 09:00 07/31/17 08:59 07/01/17 07:44 9 MLS/MIN Cefepime HCl (Consult) 1 ea UD PRN N/A 06/30/17 20:30 07/30/17 20:29 Levofloxacin (Consult) 1 ea UD PRN N/A 06/30/17 20:30 07/30/17 20:29 Acetaminophen/ Hydrocodone Bitart ([place] 5/325 Tab) 1 tab Q4H PRN PO 07/01/17 11:15 07/15/17 11:14 Heparin Sodium/ Dextrose 500 ml @ 39 mls/hr [id number] IV 07/01/17 12:15 07/31/17 12:14 Objective Vital Signs Date Time Temp Pulse Resp B/P (MAP) Pulse Ox O2 Delivery O2 Flow Rate FiO2 07/01/17 12:00 96 CPAP 2.0 07/01/17 11:47 36.5 77 20 122/66 (84) 96 Room Air 07/01/17 11:34 36.5 73 20 118/67 (84) 98 Room Air 07/01/17 11:15 16 139/75 (96) 98 Room Air 07/01/17 11:12 16 125/72 (89) 96 Room Air 07/01/17 11:09 14 123/69 (87) 96 Room Air 07/01/17 11:06 16 137/79 (98) 99 Room Air 07/01/17 11:03 16 139/79 (99) 99 Room Air 07/01/17 10:58 18 133/72 (92) 94 Room Air 07/01/17 10:53 16 120/72 (88) 97 Room Air 07/01/17 08:00 96 CPAP 2.0 07/01/17 07:49 36.8 81 20 119/67 (84) 96 07/01/17 04:00 95 CPAP 2.0 07/01/17 03:30 36.9 71 14 95/63 (74) 92 CPAP 06/30/17 23:59 95 CPAP 2.0 06/30/17 23:46 37.3 84 16 112/62 (79) 95 CPAP 06/30/17 20:00 36.5 99 22 126/62 (83) 97 Nasal Cannula 2.0 06/30/17 19:12 101 28 73/43 93 06/30/17 18:53 94 Nasal Cannula 2.0 06/30/17 18:46 78/48 06/30/17 18:45 100 20 06/30/17 18:31 88/46 06/30/17 18:30 105 24 06/30/17 18:16 100/66 06/30/17 18:15 104 21 94 Nasal Cannula 2.0 06/30/17 18:01 126/79 06/30/17 18:00 102 27 92 Nasal Cannula 2.0 06/30/17 17:46 101/58 06/30/17 17:45 104 19 94 Nasal Cannula 2.0 06/30/17 17:31 103/58 06/30/17 17:30 102 25 91 Nasal Cannula 2.0 06/30/17 17:27 99/57 06/30/17 17:21 104 10 95 Nasal Cannula 2.0 06/30/17 17:06 104 15 90 Room Air 06/30/17 17:01 101/56 06/30/17 16:51 104 20 91 Room Air 06/30/17 16:46 97/52 06/30/17 16:45 102/50 06/30/17 16:37 73/44 88 Room Air 06/30/17 16:37 91 Room Air 06/30/17 16:36 105 21 91 06/30/17 16:31 82/44 06/30/17 16:30 97 17 06/30/17 16:01 107/61 06/30/17 16:00 107 16 06/30/17 15:31 86/47 06/30/17 15:30 106 19 06/30/17 15:23 94 Room Air 06/30/17 15:01 103/53 06/30/17 15:00 110 17 Physical Exam General Appearance: no apparent distress, + obese Eyes: normal inspection, EOMI, sclerae normal ENT: normal ENT inspection, hearing grossly normal, pharynx normal Neck: supple, no adenopathy, no JVD, trachea midline Respiratory/Chest: chest non-tender, lungs clear, normal breath sounds, no respiratory distress, no accessory muscle use Cardiovascular: regular rate, rhythm, no edema, no gallop, no JVD, no murmur Abdomen: normal bowel sounds, non tender, soft, no organomegaly Extremities: normal range of motion, non-tender, normal inspection, no pedal edema, no calf tenderness, pelvis stable Neurologic/Psychiatric: orthopedic radiologic technologist II-XII nml as tested, no motor/sensory deficits, alert, normal mood/affect, oriented x 3 Skin: + pertinent finding (venous stasis changes lower extremities) Laboratory Results Last 24 Hours Test 06/30/17 17:16 07/01/17 07:37 07/01/17 11:23 Bedside Lactic Acid Venous 3.99 mmol/L White Blood Count 16.63 K/uL Red Blood Count 4.39 M/uL Hemoglobin 11.3 g/dL Hematocrit 34.3 % Mean Corpuscular Volume 78.1 fL Mean Corpuscular Hemoglobin 25.7 pg Mean Corpuscular Hemoglobin Concent 32.9 g/dl Platelet Count 119 K/uL Mean Platelet Volume 10.1 fL Neutrophils (%) (Auto) 83.0 % Lymphocytes (%) (Auto) 7.4 % Monocytes (%) (Auto) 7.8 % Eosinophils (%) (Auto) 0.0 % Basophils (%) (Auto) 0.2 % Neutrophils # (Auto) 13.82 K/uL Lymphocytes # (Auto) 1.23 K/uL Monocytes # (Auto) 1.29 K/uL Eosinophils # (Auto) 0.00 K/uL Basophils # (Auto) 0.03 K/uL RDW Standard Deviation 44.0 fL RDW Coefficient of Variation 15.4 % Immature Granulocyte % (Auto) 1.6 % Immature Granulocyte # (Auto) 0.26 K/uL Hyposegmented Neutrophils 1+ Toxic Vacuolation 1+ Sodium Level 139 mmol/L Potassium Level 3.8 mmol/L Chloride Level 107 mmol/L Carbon Dioxide Level 24 mmol/L Anion Gap 8.0 mmol/L Blood Urea Nitrogen 15 mg/dl Creatinine 0.78 mg/dl Est Creatinine Clear Calc Drug Dose 139.9 ml/min Estimated GFR () 107.5 Estimated GFR (Non- 92.8 BUN/Creatinine Ratio 18.7 Random Glucose 116 mg/dl Lactic Acid Level 2.1 mmol/L Calcium Level 7.9 mg/dl Total Bilirubin 1.7 mg/dl Aspartate Amino Transf (AST/SGOT) 114 U/L Alanine Aminotransferase (ALT/SGPT) 93 U/L Alkaline Phosphatase 144 U/L Total Protein 6.2 gm/dl Albumin 2.3 gm/dl Globulin 3.9 gm/dl Albumin/Globulin Ratio 0.6 Prothrombin Time 12.9 SECONDS Prothromb Time International Ratio 1.2 Activated Partial Thromboplast Time 33.2 SECONDS Partial Thromboplastin Ratio 1.3 Assessment and Plan 67 yo male with h/o infection right SURJIT, has undergone multiple rounds of IV antibiotics, most recently on Vanco and Invanz - Gram negative sepsis, likely due to infected line line removed today continue Cefepime and Levaquin, await final culture results continue Daptomycin from prior treatment for hip WBC up to 16k, lactic acid down to 2, afebrile, vitals stable, keep on tele tonight - Trace thrombus around catheter catheter was removed, thrombus was minimal on US, no thrombus in jugular and the subclavian vein fully patent would hold on further heparin since source of thrombus removed - Neutropenia: was due to infection, resolved today with WBC up to 16k monitor WBC - SABRINA, obesity hypoventilation: continue CPAP - HTN: continue to hold home medications due to low blood pressures in the past 24 hours - h/o right SURJIT with infection wound is healing well, no pain in hip, not likely the source of bacteremia DVT prophylaxis: Lovenox 40 qAM starting tomorrow
--- NOTE | 2017-07-01 18:29 | CONSULTATION REPORT ---
DATE OF CONSULTATION: 07/01/2017 REASON FOR CONSULT: Open wound, right hip. HISTORY OF PRESENT ILLNESS: The patient is a 67-year-old white male known to our practice, who is status post right total hip arthroplasty by Dr. Felipe Oconnor in 04/2016. He subsequently thereafter developed an infection of the right hip and was taken to the operating room in 05/2016 where an irrigation and debridement was performed, exchange of polyethylene liner and femoral head were done as well as implantation of antibiotic beads. Since that time, the patient has been undergoing wound care and IV antibiotics for this infection. The patient had been in and out of the hospital several times during last year, the last time being February. He would develop weakness and fevers, etc., and plans at that time were nonsurgical. A Marie catheter had been placed and the patient was receiving IV antibiotics on a regular basis. He states that his wound is continually getting smaller now as they have been working with the wound care and that he has been doing well as far as his hip goes. He states that within the last couple of days, he had been feeling poorly but was not having any fevers, no chills or rigors. Denies nausea or vomiting but just felt weak. He was in [facility] receiving his daily antibiotic when he felt that his weakness and feeling poorly was increasing. He was sent to [facility] ED where he was seen by the staff and plans were to admit to Medicine service. There were questions of whether this patient should be sent to [place] for further evaluation for an explant of his hardware of the right hip; however, at this time, the patient is refusing any surgery on his hip and has been refusing surgery for the last year. He last saw Dr. Villagomez in the office after his admission in February and they discussed further care for him. He again was saying that he did not want any surgery; however, if it became emergent, then he would likely have to go to a tertiary care center vs have surgery here to have this taken care of. He denies any complaints of hip pain at this time and in the past. He states that he has been getting around fairly well and has not been having any trouble with the hip. We have been asked to follow along and see this patient due to his open wound and previous right hip infection. PAST MEDICAL HISTORY: Obstructive sleep apnea with use of CPAP; hypertension; BPH; gout; GERD; history of DVT in the past, postoperative; rheumatic fever as a child; venous insufficiency; hypogonadism with low testosterone; morbid obesity; chronic infection right hip. PAST SURGICAL HISTORY: Knee replacement x4, inguinal hernia repair, cholecystectomy, appendectomy. SOCIAL HISTORY: The patient is and lives with his . He does not use tobacco and does not use alcohol. He is retired. FAMILY HISTORY: Noncontributory. MEDICATIONS: Acetaminophen 1000 mg p.o. as directed, allopurinol 300 mg p.o. q.a.m., Tenormin 25 mg p.o. q.a.m., vitamin D3 2000 units p.o. q.a.m., vitamin B12 1000 mcg p.o. q.a.m., daptomycin 900 mg IV daily, Invanz 1 gram IV daily, finasteride 5 mg p.o. q.a.m., Hyzaar 12.5/50 one tab p.o. q.a.m., nortriptyline 20 mg p.o. at bedtime, tamsulosin 0.4 mg p.o. b.i.d., testosterone 4 mg daily. ALLERGIES: NKDA. REVIEW OF SYSTEMS: As per admitting history and physical. PHYSICAL EXAMINATION: GENERAL: The patient is a morbidly obese white male who is alert and oriented x3 and in no acute distress, pleasant, cooperative. EXTREMITIES: On examination of his right lower extremity, he has a large incision area over his right hip which the central portion of the incision area is still open, approximately 5-6 cm and is approximately 1 cm to 2 cm in width. Dressing had been removed and a small amount of yellowish film had come off on the dressing, but there was no gross purulence, no odor, and when I take the patient through range of motion of the hip, he is nontender and this does not force any further fluid out of the hip itself. He is able to do an SLR on his own. Venous stasis changes are noted in the lower extremities. Left lower extremity is essentially benign at this time. Upper extremities are essentially within normal limits as far as range of motion with strengths being equal. There is no gross motor or sensory loss seen at this time. ASSESSMENT: Chronic hip infection with open wound. PLAN: Continue IV antibiotics as per medicine service and infectious disease team. Wound care has been consulted to also help take care of the open wound as they have been seeing him in the office. At this point, no surgery is planned. I have spoken to Dr. Villagomez, and unless something will change with the patient's hip, continued nonoperative treatment would be the plan. The patient is in agreement and does not want to have any further surgery at this time. If it would become emergent, plans would have to be either open irrigation and debridement with possible explant here at [facility] versus transfer to a tertiary care center such as [place]. Thank you for this consultation. We will continue to follow along while the patient is here. PANCHO
[2017-07-01] MEDS: LEVOFLOXACIN / D5W 750 MG in PREMIXED IN D5W 150 ML IV SCH (19:51)
[2017-07-01] MEDS: NORTRIPTYLINE HCL 10 MG CAP PO SCH (20:46)
[2017-07-01] MEDS: FLUCONAZOLE / NSS 200 MG in PREMIXED NSS 100 ML IV SCH (21:55)
[2017-07-02] VITALS (8 sets, daily range): BP systolic 134–139; BP diastolic 69–91; PULSE 78–90; TEMP 36.4–36.7; O2SAT 91–98
[2017-07-02] MEDS: CEFEPIME IV 2,000 MG in SYRINGE 7.5 ML IV SCH ×3 (04:23→20:33)
[2017-07-02 06:23] LABS: HEMATOCRIT 33.3 % (42-52); MEAN CELL VOLUME 78.5 fL (80-100); MEAN CORPUSCULAR HEMOGLOBIN 25.9 pg (25-34); PLATELET COUNT 107 K/uL (130-400); RED CELL DISTRIBUTION WIDTH CV 15.3 % (11.5-14.5); WHITE BLOOD COUNT 15.02 K/uL (4.8-10.8)
[2017-07-02 06:49] LABS: CREATININE 0.73 mg/dl (0.60-1.40); POTASSIUM 3.7 mmol/L (3.5-5.1)
--- NOTE | 2017-07-02 07:28 | Surgery Progress Note ---
Surgery Progress Note Date of Service Jul 02, 2017. Subjective Post OP Day: 1 + feeling well, + pain controlled, + diet (Tolerating AHA heart healthy diet), No complaints, No nausea, No vomiting Objective Vital Signs: Date Time Temp Pulse Resp B/P (MAP) Pulse Ox O2 Delivery O2 Flow Rate FiO2 07/02/17 04:00 CPAP 07/02/17 03:40 36.7 86 20 138/85 (102) 91 Room Air 07/02/17 00:01 93 CPAP 07/01/17 23:09 36.8 76 22 152/75 (100) 93 CPAP 07/01/17 20:00 Room Air 07/01/17 18:50 36.8 87 26 144/84 (104) 95 Room Air 07/01/17 16:00 92 Room Air 07/01/17 15:17 36.7 82 24 126/53 (77) 92 Room Air 07/01/17 12:00 96 CPAP 2.0 07/01/17 11:47 36.5 77 20 122/66 (84) 96 Room Air 07/01/17 11:34 36.5 73 20 118/67 (84) 98 Room Air 07/01/17 11:15 16 139/75 (96) 98 Room Air 07/01/17 11:12 16 125/72 (89) 96 Room Air 07/01/17 11:09 14 123/69 (87) 96 Room Air 07/01/17 11:06 16 137/79 (98) 99 Room Air 07/01/17 11:03 16 139/79 (99) 99 Room Air 07/01/17 10:58 18 133/72 (92) 94 Room Air 07/01/17 10:53 16 120/72 (88) 97 Room Air 07/01/17 08:00 96 CPAP 2.0 07/01/17 07:49 36.8 81 20 119/67 (84) 96 General Appearance: WD/WN, no apparent distress Head: normocephalic, atraumatic Respiratory/Chest: no respiratory distress, no accessory muscle use, + pertinent finding (mild TTP at surgical site) Incision(s): clean, dry, intact, no erythema, no drainage Laboratory Results: Results Past 24 Hours Test 07/01/17 07:37 07/01/17 11:23 07/02/17 05:29 Range/Units White Blood Count 16.63 15.02 4.8-10.8 K/uL Red Blood Count 4.39 4.24 4.7-6.1 M/uL Hemoglobin 11.3 11.0 14.0-18.0 g/dL Hematocrit 34.3 33.3 42-52 % Mean Corpuscular Volume 78.1 78.5 80-100 fL Mean Corpuscular Hemoglobin 25.7 25.9 25-34 pg Mean Corpuscular Hemoglobin Concent 32.9 33.0 32-36 g/dl Platelet Count 119 107 130-400 K/uL Mean Platelet Volume 10.1 10.0 7.4-10.4 fL Neutrophils (%) (Auto) 83.0 % Lymphocytes (%) (Auto) 7.4 % Monocytes (%) (Auto) 7.8 % Eosinophils (%) (Auto) 0.0 % Basophils (%) (Auto) 0.2 % Neutrophils # (Auto) 13.82 1.4-6.5 K/uL Lymphocytes # (Auto) 1.23 1.2-3.4 K/uL Monocytes # (Auto) 1.29 0.11-0.59 K/uL Eosinophils # (Auto) 0.00 0-0.5 K/uL Basophils # (Auto) 0.03 0-0.2 K/uL RDW Standard Deviation 44.0 44.0 36.4-46.3 fL RDW Coefficient of Variation 15.4 15.3 11.5-14.5 % Immature Granulocyte % (Auto) 1.6 % Immature Granulocyte # (Auto) 0.26 0.00-0.02 K/uL Hyposegmented Neutrophils 1+ Toxic Vacuolation 1+ Sodium Level 139 139 136-145 mmol/L Potassium Level 3.8 3.7 3.5-5.1 mmol/L Chloride Level 107 107 98-107 mmol/L Carbon Dioxide Level 24 26 21-32 mmol/L Anion Gap 8.0 6.0 3-11 mmol/L Blood Urea Nitrogen 15 14 7-18 mg/dl Creatinine 0.78 0.73 0.60-1.40 mg/dl Est Creatinine Clear Calc Drug Dose 139.9 153.7 ml/min Estimated GFR () 107.5 110.5 Estimated GFR (Non- 92.8 95.3 BUN/Creatinine Ratio 18.7 19.7 10-20 Random Glucose 116 103 70-99 mg/dl Lactic Acid Level 2.1 0.4-2.0 mmol/L Calcium Level 7.9 8.0 8.5-10.1 mg/dl Total Bilirubin 1.7 0.2-1 mg/dl Aspartate Amino Transf (AST/SGOT) 114 15-37 U/L Alanine Aminotransferase (ALT/SGPT) 93 12-78 U/L Alkaline Phosphatase 144 45-117 U/L Total Protein 6.2 6.4-8.2 gm/dl Albumin 2.3 3.4-5.0 gm/dl Globulin 3.9 2.5-4.0 gm/dl Albumin/Globulin Ratio 0.6 0.9-2 Prothrombin Time 12.9 9.0-12.0 SECONDS Prothromb Time International Ratio 1.2 0.9-1.1 Activated Partial Thromboplast Time 33.2 21.0-31.0 SECONDS Partial Thromboplastin Ratio 1.3 Neutrophils % (Manual) 87.8 % Lymphocytes % (Manual) 5.2 % Monocytes % (Manual) 6.1 % Eosinophils % (Manual) 0.9 % Neutrophils # (Manual) 13.19 1.4-6.5 K/uL Total Absolute Neutrophils 13.19 1.4-6.5 K/uL Lymphocytes # (Manual) 0.78 1.2-3.4 K/uL Total Absolute Lymphocytes 0.78 1.2-3.4 K/uL Monocytes # (Manual) 0.92 0.11-0.59 K/uL Eosinophils # (Manual) 0.14 0-0.5 K/uL Red Blood Cell Morphology Unremarkable Magnesium Level 1.8 1.8-2.4 mg/dl Microbiology Results 07/01/17 Catheter Tip Culture, Received Pending Assessment & Plan POD #1 s/p florentino catheter removal Doing well, pain controlled, Tolerating regular diet. No complaints. Will discuss findings with Dr. Montalvo. Surgery will sign off at this time. F/U outpatient PRN. Please contact with questions or concerns.
[2017-07-02] MEDS: TAMSULOSIN HCL 0.4 MG CAP PO SCH ×2 (07:43→20:47)
[2017-07-02] MEDS: FINASTERIDE 5 MG TAB PO SCH (07:43)
[2017-07-02] MEDS: CYANOCOBALAMIN 500 MCG TAB (VIT B-12) PO SCH (07:44)
[2017-07-02] MEDS: ENOXAPARIN 40 MG/0.4 ML SYR SQ SCH (07:44)
[2017-07-02] MEDS: ALLOPURINOL 300 MG TAB PO SCH (07:44)
[2017-07-02] MEDS: ACETAMINOPHEN 325 MG TAB PO PRN (07:47)
[2017-07-02] MEDS: DAPTOMYCIN IV SCH (08:48)
--- NOTE | 2017-07-02 15:19 | Progress Note ---
Subjective Date of Service: Jul 02, 2017. Subjective Pt evaluation today including: conversation w/ patient, conversation w/ family , physical exam, lab review, conversation w/ residential sales consultant, review of inpatient medication list Pain: no pain PO Intake: adequate Voiding: no voiding problems patient doing well, no complaints, no fever, eating well right hip pain is controlled reviewed labs, micro with GNR, repeat cultures ordered Hb and Cr stable discussed with Dr. Purcell Problem List Medical Problems: (1) Febrile illness Status: Acute (2) Neutropenia Status: Acute (3) Postoperative wound infection of right hip Status: Acute (4) Sepsis Status: Acute (5) Unspecified open wound, right hip, sequela Status: Acute Review of Systems Musculoskeletal: + joint pain All Other Systems: Reviewed and Negative Medications Current Inpatient Medications Medications (Trade) Dose Ordered Sig/Chris Route Start Time Stop Time Status Last Admin Dose Admin Allopurinol (Zyloprim Tab) 300 mg QAM PO 07/01/17 09:00 07/31/17 08:59 07/02/17 07:44 300 MG Atenolol (Tenormin Tab) 25 mg QAM PO 07/01/17 09:00 07/31/17 08:59 07/02/17 07:43 25 MG Finasteride (Proscar Tab) 5 mg QAM PO 07/01/17 09:00 07/31/17 08:59 07/02/17 07:43 5 MG Nortriptyline HCl (Pamelor Cap) 20 mg HS PO 06/30/17 21:00 07/30/17 20:59 07/01/17 20:46 20 MG Tamsulosin HCl (Flomax Cap) 0.4 mg BID PO 06/30/17 21:00 07/30/17 20:59 07/02/17 07:43 0.4 MG Cyanocobalamin (Vitamin B-12 Tab) 1,000 mcg QAM PO 07/01/17 09:00 07/31/17 08:59 07/02/17 07:44 1,000 MCG Cefepime HCl 2000 mg/Syringe 20 ml @ 5 mls/min Q8H IV 06/30/17 20:00 08/11/17 19:59 07/02/17 11:56 5 MLS/MIN Levofloxacin 750 mg/Prmx 150 ml @ 100 mls/hr Q24H IV 06/30/17 20:00 08/11/17 19:59 07/01/17 19:51 100 MLS/HR Acetaminophen (Tylenol Tab) 650 mg Q4H PRN PO 06/30/17 18:30 07/30/17 18:29 07/02/17 07:47 650 MG Al Hydrox/Mg Hydrox/Simethicone (Maalox Max Susp) 15 ml Q4H PRN PO 06/30/17 18:30 07/30/17 18:29 Magnesium Hydroxide (Milk Of Magnesia Susp) 30 ml Q12H PRN PO 06/30/17 18:30 07/30/17 18:29 Zolpidem Tartrate (Ambien Tab) 5 mg HSZ PRN PO 06/30/17 18:30 07/30/17 18:29 Ondansetron HCl (Zofran Inj) 4 mg Q6H PRN IV 06/30/17 18:30 07/30/17 18:29 06/30/17 23:57 4 MG Morphine Sulfate (MoRPHine SULFATE INJ) 2 mg Q30M PRN IV 06/30/17 18:30 07/14/17 18:29 Polyethylene (Miralax Powder Packet) 17 gm DAILY PRN PO 06/30/17 18:30 07/30/17 18:29 Daptomycin 900 mg/ Syringe 18 ml @ 9 mls/min DAILY IV 07/01/17 09:00 07/31/17 08:59 07/02/17 08:48 9 MLS/MIN Cefepime HCl (Consult) 1 ea UD PRN N/A 06/30/17 20:30 07/30/17 20:29 Levofloxacin (Consult) 1 ea UD PRN N/A 06/30/17 20:30 07/30/17 20:29 Acetaminophen/ Hydrocodone Bitart (Range 5/325 Tab) 1 tab Q4H PRN PO 07/01/17 11:15 07/15/17 11:14 Enoxaparin Sodium (Lovenox Inj) 40 mg QAM SQ 07/02/17 09:00 08/01/17 08:59 07/02/17 07:44 40 MG Fluconazole (Diflucan Tab) 200 mg HS PO 07/02/17 21:00 07/10/17 20:59 Objective Vital Signs Date Time Temp Pulse Resp B/P (MAP) Pulse Ox O2 Delivery O2 Flow Rate FiO2 07/02/17 12:50 Room Air 07/02/17 12:39 36.6 78 18 96 2.0 07/02/17 12:30 36.5 90 17 137/86 (103) 96 Room Air 07/02/17 12:00 Room Air 07/02/17 11:33 36.6 78 18 134/69 (90) 96 07/02/17 08:00 Room Air 07/02/17 07:58 36.5 79 18 137/77 (97) 93 07/02/17 04:00 CPAP 07/02/17 03:40 36.7 86 20 138/85 (102) 91 Room Air 07/02/17 00:01 93 CPAP 07/01/17 23:09 36.8 76 22 152/75 (100) 93 CPAP 07/01/17 20:00 Room Air 07/01/17 18:50 36.8 87 26 144/84 (104) 95 Room Air 07/01/17 16:00 92 Room Air 07/01/17 15:17 36.7 82 24 126/53 (77) 92 Room Air Physical Exam General Appearance: no apparent distress, + obese Eyes: normal inspection, EOMI ENT: normal ENT inspection, hearing grossly normal, pharynx normal Neck: supple, no adenopathy, no JVD, trachea midline Respiratory/Chest: chest non-tender, lungs clear, normal breath sounds, no respiratory distress, no accessory muscle use Cardiovascular: regular rate, rhythm, no edema, no gallop, no JVD, no murmur Abdomen: normal bowel sounds, non tender, soft, no organomegaly Extremities: normal range of motion, non-tender, normal inspection, no pedal edema, no calf tenderness, pelvis stable Neurologic/Psychiatric: casing tester II-XII nml as tested, no motor/sensory deficits, alert, normal mood/affect, oriented x 3 Skin: normal color, + pertinent finding (right hip wound) Laboratory Results Last 24 Hours Test 07/02/17 05:29 White Blood Count 15.02 K/uL Red Blood Count 4.24 M/uL Hemoglobin 11.0 g/dL Hematocrit 33.3 % Mean Corpuscular Volume 78.5 fL Mean Corpuscular Hemoglobin 25.9 pg Mean Corpuscular Hemoglobin Concent 33.0 g/dl Platelet Count 107 K/uL Mean Platelet Volume 10.0 fL RDW Standard Deviation 44.0 fL RDW Coefficient of Variation 15.3 % Neutrophils % (Manual) 87.8 % Lymphocytes % (Manual) 5.2 % Monocytes % (Manual) 6.1 % Eosinophils % (Manual) 0.9 % Neutrophils # (Manual) 13.19 K/uL Total Absolute Neutrophils 13.19 K/uL Lymphocytes # (Manual) 0.78 K/uL Total Absolute Lymphocytes 0.78 K/uL Monocytes # (Manual) 0.92 K/uL Eosinophils # (Manual) 0.14 K/uL Red Blood Cell Morphology Unremarkable Sodium Level 139 mmol/L Potassium Level 3.7 mmol/L Chloride Level 107 mmol/L Carbon Dioxide Level 26 mmol/L Anion Gap 6.0 mmol/L Blood Urea Nitrogen 14 mg/dl Creatinine 0.73 mg/dl Est Creatinine Clear Calc Drug Dose 153.7 ml/min Estimated GFR () 110.5 Estimated GFR (Non- 95.3 BUN/Creatinine Ratio 19.7 Random Glucose 103 mg/dl Calcium Level 8.0 mg/dl Magnesium Level 1.8 mg/dl Assessment and Plan 67 yo male with h/o infection right SURJIT, has undergone multiple rounds of IV antibiotics, most recently on Vanco and Invanz - Gram negative sepsis, likely due to infected line line removed / continue Cefepime and Levaquin, await final culture results, still pending continue Daptomycin from prior treatment for hip WBC down to 15k, lactic acid down to 2 yesterday, afebrile, vitals stable, keep on tele tonight - Trace thrombus around catheter catheter was removed, thrombus was minimal on US, no thrombus in jugular and the subclavian vein fully patent would hold on further heparin since source of thrombus removed - Neutropenia: was due to infection, resolved yesterday with WBC up to 16k monitor WBC - SABRINA, obesity hypoventilation: continue CPAP - HTN: BP stable - h/o right SURJIT with infection wound is healing well, no pain in hip, not likely the source of bacteremia DVT prophylaxis: Lovenox 40 qAM transfer to medical floor
[2017-07-02] MEDS: LEVOFLOXACIN / D5W 750 MG in PREMIXED IN D5W 150 ML IV SCH (20:33)
[2017-07-02] MEDS: FLUCONAZOLE 100 MG TAB PO SCH (20:47)
[2017-07-02] MEDS: NORTRIPTYLINE HCL 10 MG CAP PO SCH (20:47)
[2017-07-03] MEDS: CEFEPIME IV 2,000 MG in SYRINGE 7.5 ML IV SCH (04:30)
[2017-07-03 08:16] VITALS: BP 137/79; PULSE 82; TEMP 36.5; O2SAT 97
[2017-07-03] MEDS: DAPTOMYCIN IV SCH (09:03)
[2017-07-03] MEDS: FINASTERIDE 5 MG TAB PO SCH (09:04)
[2017-07-03] MEDS: TAMSULOSIN HCL 0.4 MG CAP PO SCH ×2 (09:04→19:48)
[2017-07-03] MEDS: ALLOPURINOL 300 MG TAB PO SCH (09:05)
[2017-07-03] MEDS: CYANOCOBALAMIN 500 MCG TAB (VIT B-12) PO SCH (09:05)
[2017-07-03] MEDS: ENOXAPARIN 40 MG/0.4 ML SYR SQ SCH (09:06)
--- NOTE | 2017-07-03 13:33 | Progress Note ---
Subjective Date of Service: Jul 03, 2017. Subjective Pt evaluation today including: conversation w/ patient, conversation w/ family , physical exam, lab review, review of inpatient medication list Pain: no pain PO Intake: adequate Voiding: no voiding problems patient doing well primary concern is when can he leave and what is the plan for access now that Marie catheter removed explained that we are waiting on repeat blood cultures to be negative I will need to discuss with Dr. Purcell about what type of line he would require afebrile, vitals stable no CBC today, will check tomorrow blood cultures growing Stenotrophomonas, he has grown that before culture from tip of line with gram negative rods Problem List Medical Problems: (1) Febrile illness Status: Acute (2) Neutropenia Status: Acute (3) Postoperative wound infection of right hip Status: Acute (4) Sepsis Status: Acute (5) Unspecified open wound, right hip, sequela Status: Acute Review of Systems All Other Systems: Reviewed and Negative Medications Current Inpatient Medications Medications (Trade) Dose Ordered Sig/Chris Route Start Time Stop Time Status Last Admin Dose Admin Allopurinol (Zyloprim Tab) 300 mg QAM PO 07/01/17 09:00 07/31/17 08:59 07/03/17 09:05 300 MG Atenolol (Tenormin Tab) 25 mg QAM PO 07/01/17 09:00 07/31/17 08:59 07/03/17 09:06 25 MG Finasteride (Proscar Tab) 5 mg QAM PO 07/01/17 09:00 07/31/17 08:59 07/03/17 09:04 5 MG Nortriptyline HCl (Pamelor Cap) 20 mg HS PO 06/30/17 21:00 07/30/17 20:59 07/02/17 20:47 20 MG Tamsulosin HCl (Flomax Cap) 0.4 mg BID PO 06/30/17 21:00 07/30/17 20:59 07/03/17 09:04 0.4 MG Cyanocobalamin (Vitamin B-12 Tab) 1,000 mcg QAM PO 07/01/17 09:00 07/31/17 08:59 07/03/17 09:05 1,000 MCG Levofloxacin 750 mg/Prmx 150 ml @ 100 mls/hr Q24H IV 06/30/17 20:00 08/11/17 19:59 07/02/17 20:33 100 MLS/HR Acetaminophen (Tylenol Tab) 650 mg Q4H PRN PO 06/30/17 18:30 07/30/17 18:29 07/02/17 07:47 650 MG Al Hydrox/Mg Hydrox/Simethicone (Maalox Max Susp) 15 ml Q4H PRN PO 06/30/17 18:30 07/30/17 18:29 Magnesium Hydroxide (Milk Of Magnesia Susp) 30 ml Q12H PRN PO 06/30/17 18:30 07/30/17 18:29 Zolpidem Tartrate (Ambien Tab) 5 mg HSZ PRN PO 06/30/17 18:30 07/30/17 18:29 Ondansetron HCl (Zofran Inj) 4 mg Q6H PRN IV 06/30/17 18:30 07/30/17 18:29 06/30/17 23:57 4 MG Morphine Sulfate (MoRPHine SULFATE INJ) 2 mg Q30M PRN IV 06/30/17 18:30 07/14/17 18:29 Polyethylene (Miralax Powder Packet) 17 gm DAILY PRN PO 06/30/17 18:30 07/30/17 18:29 Daptomycin 900 mg/ Syringe 18 ml @ 9 mls/min DAILY IV 07/01/17 09:00 07/31/17 08:59 07/03/17 09:03 9 MLS/MIN Levofloxacin (Consult) 1 ea UD PRN N/A 06/30/17 20:30 07/30/17 20:29 Acetaminophen/ Hydrocodone Bitart ([place] 5/325 Tab) 1 tab Q4H PRN PO 07/01/17 11:15 07/15/17 11:14 Enoxaparin Sodium (Lovenox Inj) 40 mg QAM SQ 07/02/17 09:00 08/01/17 08:59 07/03/17 09:06 40 MG Fluconazole (Diflucan Tab) 200 mg HS PO 07/02/17 21:00 07/10/17 20:59 07/02/17 20:47 200 MG Objective Vital Signs Date Time Temp Pulse Resp B/P (MAP) Pulse Ox O2 Delivery O2 Flow Rate FiO2 07/03/17 08:16 36.5 82 18 137/79 (98) 97 Room Air 07/03/17 08:00 Room Air 07/03/17 00:00 Room Air 07/02/17 23:10 36.4 80 20 139/91 (107) 98 Room Air 07/02/17 16:00 Room Air 07/02/17 15:49 36.7 78 16 139/88 (105) 95 Room Air Physical Exam General Appearance: no apparent distress, + obese Eyes: normal inspection, EOMI, sclerae normal ENT: normal ENT inspection, hearing grossly normal, pharynx normal Neck: supple, no adenopathy, no JVD, trachea midline Respiratory/Chest: chest non-tender, lungs clear, normal breath sounds, no respiratory distress, no accessory muscle use Cardiovascular: regular rate, rhythm, no edema, no gallop, no JVD, no murmur Abdomen: normal bowel sounds, non tender, soft, no organomegaly Extremities: normal range of motion, non-tender, normal inspection, no pedal edema, no calf tenderness, normal capillary refill, pelvis stable, + pertinent finding Neurologic/Psychiatric: hotel engineer II-XII nml as tested, no motor/sensory deficits, alert, normal mood/affect, oriented x 3 Skin: + pertinent finding (right hip wound, clean, dry, intact) Assessment and Plan 67 yo male with h/o infection right SURJIT, has undergone multiple rounds of IV antibiotics, most recently on Vanco and Invanz - Gram negative sepsis, likely due to infected line line removed 4/5 blood cultures grew Stenotrophomonas, culture from tip of line with GNR repeat cultures drawn /6 taper antibiotics to Levaquin continue Daptomycin from prior treatment for hip WBC down to 15k yesterday, will repeat tomorrow, afebrile - Trace thrombus around catheter catheter was removed, thrombus was minimal on US, no thrombus in jugular and the subclavian vein fully patent would hold on further heparin since source of thrombus removed - Neutropenia: was due to infection, resolved - SABRINA, obesity hypoventilation: continue CPAP - HTN: BP stable - h/o right SURJIT with infection wound is healing well, no pain in hip, not likely the source of bacteremia DVT prophylaxis: Lovenox 40 qAM will follow up with Dr. Purcell about antibiotic therapy, how long, what type of line is needed?
[2017-07-03 15:02] VITALS: BP 123/78; PULSE 75; TEMP 36.7; O2SAT 97
[2017-07-03] MEDS: NORTRIPTYLINE HCL 10 MG CAP PO SCH (19:47)
[2017-07-03] MEDS: FLUCONAZOLE 100 MG TAB PO SCH (19:47)
[2017-07-03] MEDS ORDERED: LEVOFLOXACIN 750 MG TAB PO SCH (20:00)
[2017-07-03 22:58] VITALS: BP 128/58; PULSE 82; TEMP 36.8; O2SAT 100
[2017-07-04 07:06] LABS: HEMATOCRIT 33.9 % (42-52); HEMOGLOBIN 11.1 g/dL (14.0-18.0); MEAN CELL VOLUME 78.5 fL (80-100); MEAN CORPUSCULAR HEMOGLOBIN 25.7 pg (25-34); MEAN CORPUSCULAR HGB CONC 32.7 g/dl (32-36); MEAN PLATELET VOLUME 10.1 fL (7.4-10.4); PLATELET COUNT 159 K/uL (130-400); RED CELL DISTRIBUTION WIDTH CV 15.3 % (11.5-14.5); RED CELL DISTRIBUTION WIDTH SD 44.2 fL (36.4-46.3); WHITE BLOOD COUNT 7.99 K/uL (4.8-10.8)
[2017-07-04 07:40] LABS: CREATININE 0.71 mg/dl (0.60-1.40)
[2017-07-04 07:54] VITALS: BP 130/83; PULSE 73; TEMP 36.6; O2SAT 96
[2017-07-04 08:24] VITALS: BP 146/90; PULSE 87; TEMP 36.7; O2SAT 96
[2017-07-04] MEDS: ALLOPURINOL 300 MG TAB PO SCH (08:28)
[2017-07-04] MEDS: CYANOCOBALAMIN 500 MCG TAB (VIT B-12) PO SCH (08:29)
[2017-07-04] MEDS: TAMSULOSIN HCL 0.4 MG CAP PO SCH (08:29)
[2017-07-04] MEDS: FINASTERIDE 5 MG TAB PO SCH (08:29)
[2017-07-04] MEDS: ENOXAPARIN 40 MG/0.4 ML SYR SQ SCH (08:29)
[2017-07-04] MEDS ORDERED: LVQ750 PO (09:42)
[2017-07-04] MEDS ORDERED: DFL100 PO (09:42)
--- NOTE | 2017-07-04 09:46 | Discharge Instructions ---
Discharge Instructions Date of Service Jul 04, 2017. Admission Reason for Admission: Bacteremia Discharge Discharge Diagnosis / Problem: Stenotrophomonas bacteremia due to infected Marie catheter Discharge Goals Goal(s): Decrease discomfort, Improve function, Improve disease control Activity Recommendations Activity Limitations: resume your previous activity . Instructions / Follow-Up Instructions / Follow-Up Medications: - LEVAQUIN: 750mg daily for 14 more days for bacteremia - FLUCONAZOLE: 200mg daily for 4 more days for UTI, fungal Sepsis due to infection Marie catheter, cultures in blood and catheter grew Stenotrophomonas sensitive to Levaquin discussed with Dr. Purcell, no further need for Daptomycin or Invanz will d/c home on Levaquin for 14 days please follow up with infectious disease prior to completion of the antibiotics Fungal UTI: fungus seen on urinalysis, no fungus on culture will treat for 4 more days with Fluconazole continue to follow up with wound care FOLLOW UP - Janelle Ahumada PA-C, call for appointment in one week for hospital follow up - Infectious disease, call for appointment in 2 weeks Current Hospital Diet Patient's current hospital diet: AHA Diet (Heart Healthy) Discharge Diet Recommended Diet: AHA Diet (Heart Healthy) Procedures Procedures Performed: Removal of Marie Catheter Pending Studies Studies pending at discharge: no Medical Emergencies . Who to Call and When: Medical Emergencies: If at any time you feel your situation is an emergency, please call 911 immediately. . Non-Emergent Contact Non-Emergency issues call your: Primary Care Provider, Specialist (Infectious Disease) Call Non-Emergent contact if: you have a fever, you have any medication questions . . "Provider Documentation" section prepared by Claudio Sykes . [place] Drug Monitoring Program Search Results: no issues identified
--- NOTE | 2017-07-04 10:26 | Orthopedic Progress Note ---
Orthopedic Progress Note Date of Service Jul 04, 2017. Subjective Reports: feeling well, Denies: complaints, chest pain, SOB, nausea / vomiting, light headedness, calf pain Additional Notes: Patient seen sitting up in bed, denies complaints, feeling well, no acute issues overnight. Objective NAD, AOx3 RLE NVSI +EHL/FHL/TA/GS SILT grossly, CR< 2 seconds, compartments soft NT, wound clean appearing, decreased in size since prior hospital admission, no active drainage or purulence, 2x6cm, skin edges without erythema Date Time Temp Pulse Resp B/P (MAP) Pulse Ox O2 Delivery O2 Flow Rate FiO2 07/04/17 09:06 Room Air 07/04/17 08:24 36.7 87 18 146/90 (108) 96 Room Air 07/03/17 23:35 CPAP 07/03/17 22:58 36.8 82 19 128/58 (81) 100 CPAP 07/03/17 15:51 Room Air 07/03/17 15:02 36.7 75 20 123/78 (93) 97 Room Air Laboratory Results 24 Hours: Test 07/04/17 06:46 Hematocrit 33.9 % Hemoglobin 11.1 g/dL Assessment & Plan Assessment: 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 I discussed with the patient at length his clinical prognosis which remains unchanged. I did express to him it is my recommendations that he have operative intervention including explant of total hip prosthesis and I+D followed by a course of IV antibiotics and continued wound care prior to any reimplantation. I discussed this risks of nonoperative treatment which does include continuation and worsening of his infection, loss of function, heterotrophic ossification of the right hip, osteolysis, involvement of other extremities, sepsis, loss of limb, loss of life. The patient displays understanding of the risks however it has been his ongoing informed decision to maintain nonoperative treatment and suppressive antibiotics. I did discuss with him again that I feel his case is complex and his postoperative course would be complicated which would warrant extensive postoperative care/intervention and his needs would best be suited by a [facility] and encourage him to follow-up with Dr. Monae in [place] to discuss any surgical intervention for immediate and [place] [facility] follow up vs chronic suppressive care. I would like to obtain routine x-rays of the right hip to evaluate for any loosening, worsening infection with bone involvement or development of heterotrophic ossification. I did recommend that he have x-rays taken at least every 6 months to monitor for any worsening bony involvement and/ or loosening of the prosthesis. It is also imperative that the patient receive proper nutritional intervention to aid in wound healing and nutritional labs should be followed. He will also need to continue with wound care clinic.
[2017-07-04 10:31] VITALS: BP 146/90; PULSE 87; TEMP 36.7; O2SAT 96
--- NOTE | 2017-07-04 10:48 | DIAGNOSTIC IMAGING REPORT ---
R HIP UNILATERAL 2 VIEWS CLINICAL HISTORY: Right hip arthroplasty. Chronic infection. COMPARISON: 02/08/2017 DISCUSSION: There are postsurgical changes of a total right hip arthroplasty. There is heterotopic ossification adjacent to the greater trochanter. There are no acute fractures or dislocations. There is no significant periprosthetic lucency. There is a focus of minimal cortical thickening involving the lateral cortex of the proximal femur. IMPRESSION: 1. No acute fractures 2. No evidence of significant periprosthetic lucency 3. Heterotopic ossification at the level of the greater trochanter Electronically signed by: Reid Burrell M.D. 07/04/2017 10:46 AM Dictated Date/Time: 07/04/2017 10:44 AM
--- NOTE | 2017-07-04 14:20 | Discharge Summary ---
Discharge Summary Date of Service Jul 04, 2017. Discharge Summary Admission Date: Jun 30, 2017 at 18:30 Discharge Date: Jul 04, 2017 Discharge Disposition: Home Principal Diagnosis: Sepsis from Marie catheter, Stenotrophomonas Problems/Secondary Diagnoses: Chronic septic right hip s/p SURJIT Obesity Trace thrombus around catheter Neutropenia Immunizations: Have You Had Influenza Vaccine: Yes History of Tetanus Vaccine?: No History of Pneumococcal: No History of Hepatitis B Vaccine: No Procedures: Marie catheter removal Consultations: General surgery Orthopedic surgery Infectious disease Medication Reconciliation New Medications: Fluconazole (Fluconazole) 100 Mg Tab 200 MG PO HS, #4 TAB 0 Refills Levofloxacin (Levofloxacin) 750 Mg Tab 750 MG PO DAILY@2000 for 14 Days, #14 TAB 0 Refills Continued Medications: Acetaminophen (Tylenol) 500 Mg Tab 1000 MG PO DIRECTED, TAB Allopurinol (Zyloprim) 300 Mg Tab 300 MG PO QAM, TAB Atenolol (Tenormin) 25 Mg Tab 25 MG PO QAM, TAB Cholecalciferol (Vitamin D3) 2,000 Unit Cap 2000 UNIT PO QAM Cyanocobalamin (B-12) 1,000 Mcg Cap 1000 MCG PO QAM Finasteride (Proscar) 5 Mg Tab 5 MG PO QAM, TAB Hctz/Losartan (Hyzaar 12.5MG/50MG) Tab 1 TAB PO QAM Nortriptyline (Pamelor) 10 Mg Cap 20 MG PO HS, CAP Tamsulosin HCl (Tamsulosin HCl) 0.4 Mg Cap 0.4 MG PO BID Testosterone (Androderm) 4 Mg/24 Hr Dis DAILY Discontinued Medications: Daptomycin (Daptomycin) 500 Mg Inj 900 MG IV DAILY COMES TO [facility] Ertapenem Sodium (Invanz) 1 Gm Inj 1 GM IV DAILY, VIAL COMES TO [facility] Discharge Exam Patient feeling well. No pain in right hip. Discussed going home on Levaquin PO, he agreed. Long discussion with orthopedic surgeon, x-ray of right hip shows similar changes to fall 2016 He again told patient that without removal of the infected hardware, the patient will always be on suppressive therapy Again, he recommended that the patient strongly consider going to [facility] to see specialist for spacer implantation patient understands to follow up closely with infectious disease all questions answered Review of Systems: Constitutional: No fever, No chills, No sweats, No weight loss, No weakness , No fatigue, No problem reported Eyes: No worsening of vision, No eye pain, No redness, No discharge, No diplopia, No problem reported ENT: No hearing loss, No unusual epistaxis, No nasal symptoms, No sore throat, No tinnitus, No dental problems, No trouble swallowing, No problem reported Respiratory: No cough, No sputum, No wheezing, No shortness of breath, No dyspnea on exertion, No dyspnea at rest, No hemoptysis, No problem reported Cardiovascular: No chest pain, No orthopnea, No PND, No edema, No claudication, No palpitations, No problem reported Abdomen: No pain, No nausea, No vomiting, No diarrhea, No constipation, No GI bleeding, No problem reported Musculoskeletal: + joint pain (minimal pain in right hip), No muscle pain, No swelling, No calf pain, No problem reported Genitourinary - Male: No hematuria, No dysuria, No urinary frequency, No urinary urgency Neurologic: No memory loss, No paralysis, No weakness, No numbness/tingling , No vertigo, No balance problems Psychiatric: No depression symptoms, No anhedonism, No anxiety, No insomnia , No substance abuse, No problem reported Endocrine: No fatigue, No excessive thirst, No excessive urination, No problem reported Hematologic / Lymphatic: No abnormal bleeding/bruising, No clotting problems , No swollen lymph nodes, No night sweats, No problem reported Integumentary: No rash, No itch, No new/changing skin lesions, No color change, No bleeding, No problem reported Physical Exam: General Appearance: no apparent distress, + obese Eyes: normal inspection, EOMI, sclerae normal ENT: normal ENT inspection, hearing grossly normal, pharynx normal Neck: supple, no adenopathy, no JVD, trachea midline Respiratory/Chest: chest non-tender, lungs clear, normal breath sounds, no respiratory distress, no accessory muscle use Cardiovascular: regular rate, rhythm, no edema, no gallop, no JVD, no murmur , normal peripheral pulses Abdomen / GI: normal bowel sounds, non tender, soft, no organomegaly Extremities: normal inspection, no calf tenderness, normal capillary refill , no pedal edema, normal range of motion, pelvis stable 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, no motor/sensory deficits , alert, normal mood/affect, normal reflexes, oriented x 3 Skin: normal color, warm/dry, no rash, + pertinent finding (right hip wound is healing well) Hospital Course 67 yo male with h/o infection right SURJIT, has undergone multiple rounds of IV antibiotics, most recently on Vanco and Invanz - Gram negative sepsis, likely due to infected line line removed 4/5 blood cultures grew Stenotrophomonas, culture from tip of line also grew Stenotrophomonas repeat cultures drawn 4/6 WBC down to 7.99k, was 15k two days prior taper antibiotics to Levaquin 750mg PO daily will complete 14 days total from today instructed patient to follow up closely with infectious disease - Trace thrombus around catheter catheter was removed, thrombus was minimal on US, no thrombus in jugular and the subclavian vein fully patent would hold on further heparin since source of thrombus removed - Neutropenia: was due to infection, resolved, WBC normal today - SABRINA, obesity hypoventilation: continue CPAP - HTN: BP stable - h/o right SURJIT with infection wound is healing well, no pain in hip, not likely the source of bacteremia will follow up with wound clinic x-ray today showed some heterotropic ossification around the greater trochanter, similar to prior study no lucency around the SURJIT seen again, orthopedic surgery has urged patient to at least meet with specialist in [place] for opinion on surgery patient will think about it but not ready to consider another procedure follow up with ID about when/if Invanz and Daptomycin needed DVT prophylaxis: Lovenox 40 qAM Total Time Spent: Greater than 30 minutes This includes examination of the patient, discharge planning, medication reconciliation, and communication with other providers. Discharge Instructions Please refer to the electronic Patient Visit Report (Discharge Instructions) for additional information. Follow-Up Janelle Ahumada in one week Dr. Purcell / Dr. Love in two weeks Orthopedic surgery in several weeks Additional Copies To Yoan Villagomez D.O.; Caesar Purcell MD; Janelle Ahumada,P.A.
== END 2017-07-04 12:40 | disposition home or self-care (01) | DRG 856 ==
LOC: EDBD 09:11 → C.EDB 09:12 → C.2E 18:30 → ENRESERV 18:37 → C.MSW 07-02 10:13 → ENRESERV 07-02 10:36
PROVIDERS: ADMIT Internal Medicine; ATTEND Internal Medicine
PROC: 05PY03Z Removal of Infusion Device from Upper Vein, Open Approach (ICD-10-PCS; principal; 2017-07-01 13:00)
DX: T81.4XXA Infection following a procedure, initial encounter (principal); A41.59 Other Gram-negative sepsis; T80.211A Bloodstream infection due to central venous catheter, initial encounter; T82.524A Displacement of infusion catheter, initial encounter; T82.868A Thrombosis due to vascular prosthetic devices, implants and grafts, initial encounter; I82.C11 Acute embolism and thrombosis of right internal jugular vein; B37.49 Other urogenital candidiasis; E66.2 Morbid (severe) obesity with alveolar hypoventilation; Z68.43 Body mass index [BMI] 50.0-59.9, adult; D70.9 Neutropenia, unspecified; T84.51XD Infection and inflammatory reaction due to internal right hip prosthesis, subsequent encounter; Y83.1 Surgical operation with implant of artificial internal device as the cause of abnormal reaction of the patient, or of later complication, without mention of misadventure at the time of the procedure; I10 Essential (primary) hypertension; N40.0 Benign prostatic hyperplasia without lower urinary tract symptoms; M10.9 Gout, unspecified; E29.1 Testicular hypofunction; Z96.641 Presence of right artificial hip joint; Z86.718 Personal history of other venous thrombosis and embolism; Z86.79 Personal history of other diseases of the circulatory system; Z79.2 Long term (current) use of antibiotics; Z79.899 Other long term (current) drug therapy; Z90.49 Acquired absence of other specified parts of digestive tract; Z98.890 Other specified postprocedural states; Z82.49 Family history of ischemic heart disease and other diseases of the circulatory system

== ENCOUNTER 2017-07-26 09:51 | Inpatient (IN) | payer OTHER, MEDICARE ==
[~2017-07-26] VITALS: Ht 175.3 cm; Wt 175.8 kg
[~2017-07-26 09:51] MED LIST changes: +ASPI-435 PO; +CLOT1PAK TOP; -DAPT500I IV; +DFL100 PO; +DOXY-300 PO; -ERTA1INJ IV; +KETO1AER2 TOP
[2017-07-26 11:02] VITALS: BP 156/99; PULSE 61; TEMP 36.4; O2SAT 96; Ht 175.3 cm; Wt 175.8 kg
[2017-07-26] MEDS ORDERED: ONDANSETRON INJ 2 MG/ML 2 ML VIAL IV PRN (12:00)
[2017-07-26] MEDS ORDERED: MAGNESIUM HYDROXIDE SUSP 30 ML UDC PO PRN (12:00)
[2017-07-26] MEDS ORDERED: POLYETHYLENE (MIRALAX) 17 GM PACK PO PRN (12:00)
[2017-07-26] MEDS ORDERED: ALUMINUM/MAGNESIUM/SIMETH (MAALOX MAX) 30 ML UDC PO PRN (12:00)
[2017-07-26] MEDS ORDERED: ZOLPIDEM TARTRATE 5 MG TAB PO PRN ×2 (12:00)
[2017-07-26 12:19] LABS: BASO % 0.4 %; BASO ABS # 0.03 K/uL (0-0.2); EOS % 1.6 %; EOS ABS # 0.11 K/uL (0-0.5); HEMATOCRIT 39.9 % (42-52); HEMOGLOBIN 12.9 g/dL (14.0-18.0); IG# 0.06 K/uL (0.00-0.02); LYMPH ABS # 1.77 K/uL (1.2-3.4); MEAN CORPUSCULAR HEMOGLOBIN 25.5 pg (25-34); MEAN CORPUSCULAR HGB CONC 32.3 g/dl (32-36); MONO ABS # 0.95 K/uL (0.11-0.59); NEUT % 57.1 %; NEUT ABS # 3.89 K/uL (1.4-6.5); PLATELET COUNT 264 K/uL (130-400); RED CELL DISTRIBUTION WIDTH CV 15.8 % (11.5-14.5); RED CELL DISTRIBUTION WIDTH SD 45.5 fL (36.4-46.3); WHITE BLOOD COUNT 6.81 K/uL (4.8-10.8)
[2017-07-26] MEDS ORDERED: DOXYCYCLINE HYCLATE 100 MG CAP PO SCH (12:30)
[2017-07-26 12:52] LABS: ALBUMIN 2.8 gm/dl (3.4-5.0); CALCIUM 8.5 mg/dl (8.5-10.1); CREATININE 0.81 mg/dl (0.60-1.40); POTASSIUM 3.5 mmol/L (3.5-5.1)
[2017-07-26 12:54] LABS: TOTAL PROTEIN 7.6 gm/dl (6.4-8.2)
[2017-07-26] MEDS ORDERED: CEFEPIME IV 2,000 MG in DEXTROSE 5% 100ML 100 ML IV SCH (13:15)
[2017-07-26] MEDS ORDERED: VANCOMYCIN CONSULT ACTIVE PRN (13:15)
[2017-07-26] MEDS ORDERED: OPTIRAY 320 IV PRN (13:15)
--- NOTE | 2017-07-26 13:45 | History and Physical ---
History & Physical Date & Time of Service: Jul 26, 2017 at 13:11 Chief Complaint: Wound Cellulitis (Not Open) Primary Care Physician: Janelle Ahumada P.A. History of Present Illness Source: patient 67-year-old man with past medical history of gout, hypertension, dyslipidemia, BPH, obstructive sleep apnea and history of retained infected right hip prosthesis. Patient is on chronic suppression with antibiotics, used to be on IV antibiotics but developed septicemia and had to remove the retained venous access. Was switched to oral antibiotics and followed by Dr. Love. Based on our list he was on doxycycline/fluconazole. Last admission I believe he was also started on levofloxacin. Patient is slightly poor historian and unsure of what exactly antibiotics he was taking at home. He was found today to have increased purulent discharge. Patient stated that for the last few days he has been having chills, fatigue and shortness of breath. Patient was found to have an infected inflamed wound in the wound clinic. Patient was sent for IV antibiotics and cultures. Past Medical/Surgical History Medical Problems: (1) Bacteremia (2) Febrile illness (3) Infected prosthetic hip (4) Knee pain (5) Neutropenia (6) Positive blood culture (7) Post op infection (8) Postoperative wound infection of right hip (9) Right Hip Wound Drainage (10) Sepsis (11) Unspecified open wound, right hip, sequela Surgical Problems: (1) Post-operative state (2) Post-operative state Family History Heart Disease Hypertension Parkinson's Disease Social History Smoking Status: Never Smoker Drug Use: none Marital Status: Occupational Status: retired Immunizations History of Influenza Vaccine: Yes History of Tetanus Vaccine?: No History of Pneumococcal: No History of Hepatitis B Vaccine: No Allergies Coded Allergies: No Known Allergies (Unverified , 07/19/17) Home Medications Scheduled Acetaminophen (Tylenol), 1,000 MG PO DIRECTED Allopurinol (Zyloprim), 300 MG PO QAM Aspirin (Aspirin 81), 1 TAB PO QAM Atenolol (Tenormin), 25 MG PO QAM Cholecalciferol (Vitamin D3), 2,000 UNIT PO QAM Whwrktvpxpzv-Becnvhrnzdmng-Wyt (Dermacinrx Therazole Haroon 1-0.05 & 20 %), 1 APPLN TOP BID Cyanocobalamin (B-12), 1,000 MCG PO QAM Doxycycline (Monohydrate) (Doxycycline), 100 MG PO BIDM Finasteride (Proscar), 5 MG PO QAM Fluconazole (Fluconazole), 200 MG PO HS Hctz/Losartan (Hyzaar 12.5MG/50MG), 0.5 TAB PO QAM Ketoconazole (Topical) (Extina), 1 APPLN TOP BID Nortriptyline (Pamelor), 20 MG PO HS Tamsulosin HCl (Tamsulosin HCl), 0.4 MG PO BID Testosterone (Androderm), DAILY Review of Systems Review of system Constitutional: No fever /admits to chills and fatigue for the past few days/ no sweats Eyes: no blurring of vision / no eye pain / no discharge / no redness ENT: no hearing loss / no epistaxis /no swallowing problems Respiratory: no cough / no wheezing /positive for shortness of breath/ no hemoptysis Cardiovascular: no Chest pain / no lower extremity edema / no palpitation Abdomen: no pain / no nausea / no vomiting / no constipation Musculoskeletal: no joint pain / no muscle pain /increased swelling and discharge from right hip Genitourinary: no dysuria / no incontinence / no urinary retention Neurologic: no focal weakness / no numbness/tingling / no ataxia Psychiatric: no depression symptoms / no anxiety / no insomnia Endocrine: no excessive thirst / no excessive urination Hematologic: no abnormal bleeding / no bruising / no LN swelling Skin: No rash / no pallor Physical Exam Vital Signs Date Time Temp Pulse Resp B/P (MAP) Pulse Ox O2 Delivery O2 Flow Rate FiO2 07/26/17 11:02 36.4 61 18 156/99 96 Room Air Physical examination General patient appears to be comfortable, not in acute distress, morbidly obese HEENT: Atraumatic , normocephalic /no jaundice /no pallor /anicteric /no dry mucous membrane /normal external ear inspection Neck: Supple /no swelling /central trach Heart: S1/S2 normal/regular rate and rhythm/no gallop /no rub /no murmur Lungs: Clear to auscultation bilaterally/normal chest with expansion/no rhonchi/ no rales/no wheezing/no use of accessory muscles of respiration Abdomen: Soft/nontender/no guarding/no rebound/no organomegaly/no pulsatile mass Musculoskeletal: Decreased range of motion of right hip, there is 5 x 2 cm gap wound with fibrotic edges. Plus purulent discharge. Neuro exam: Awake alert oriented 3/cranial nerves II through XII appear to be intact/sensation intact/moves all extremities/no abnormal movements Psychiatric evaluation: No depressed mood/normal affect Skin: No rash on exposed skin area/no erythema Extremity: Normal pulse/no pitting edema/no clubbing or cyanosis Endocrine/lymphatic: No obvious lymphadenopathy /no lymphedema Diagnostics Laboratory Results Results Past 24 Hours Test 07/26/17 11:55 Range/Units White Blood Count 6.81 4.8-10.8 K/uL Red Blood Count 5.05 4.7-6.1 M/uL Hemoglobin 12.9 14.0-18.0 g/dL Hematocrit 39.9 42-52 % Mean Corpuscular Volume 79.0 80-100 fL Mean Corpuscular Hemoglobin 25.5 25-34 pg Mean Corpuscular Hemoglobin Concent 32.3 32-36 g/dl Platelet Count 264 130-400 K/uL Mean Platelet Volume 10.0 7.4-10.4 fL Neutrophils (%) (Auto) 57.1 % Lymphocytes (%) (Auto) 26.0 % Monocytes (%) (Auto) 14.0 % Eosinophils (%) (Auto) 1.6 % Basophils (%) (Auto) 0.4 % Neutrophils # (Auto) 3.89 1.4-6.5 K/uL Lymphocytes # (Auto) 1.77 1.2-3.4 K/uL Monocytes # (Auto) 0.95 0.11-0.59 K/uL Eosinophils # (Auto) 0.11 0-0.5 K/uL Basophils # (Auto) 0.03 0-0.2 K/uL RDW Standard Deviation 45.5 36.4-46.3 fL RDW Coefficient of Variation 15.8 11.5-14.5 % Immature Granulocyte % (Auto) 0.9 % Immature Granulocyte # (Auto) 0.06 0.00-0.02 K/uL Erythrocyte Sedimentation Rate 64 0-14 mm/hr Prothrombin Time 10.9 9.0-12.0 SECONDS Prothromb Time International Ratio 1.0 0.9-1.1 D-Dimer 2170 0-500 ug/L FEU Sodium Level 137 136-145 mmol/L Potassium Level 3.5 3.5-5.1 mmol/L Chloride Level 105 98-107 mmol/L Carbon Dioxide Level 26 21-32 mmol/L Anion Gap 6.0 3-11 mmol/L Blood Urea Nitrogen 15 7-18 mg/dl Creatinine 0.81 0.60-1.40 mg/dl Est Creatinine Clear Calc Drug Dose 139.2 ml/min Estimated GFR () 105.8 Estimated GFR (Non- 91.3 BUN/Creatinine Ratio 18.6 10-20 Random Glucose 131 70-99 mg/dl Calcium Level 8.5 8.5-10.1 mg/dl Total Bilirubin 0.4 0.2-1 mg/dl Aspartate Amino Transf (AST/SGOT) 14 15-37 U/L Alanine Aminotransferase (ALT/SGPT) 16 12-78 U/L Alkaline Phosphatase 94 45-117 U/L C-Reactive Protein 10.30 0-0.29 mg/dl Total Protein 7.6 6.4-8.2 gm/dl Albumin 2.8 3.4-5.0 gm/dl Globulin 4.8 2.5-4.0 gm/dl Albumin/Globulin Ratio 0.6 0.9-2 Microbiology Results 07/26/17 Blood Culture, Received Pending 07/26/17 Blood Culture, Received Pending 07/26/17 Gram Stain, Received Pending 07/26/17 Wound Culture, Received Pending Impression Assessment and Plan 67-year-old man with past medical history of gout, hypertension, dyslipidemia, BPH, obstructive sleep apnea and infected right hip prosthesis. Patient is on chronic suppression with antibiotics was sent from wound clinic with active hip infection at the surgical site. Assessment Infected retained right prostatic hip Failed outpatient oral antibiotics New onset shortness of breath Gout Essential hypertension under control Dyslipidemia BPH Obstructive sleep apnea on CPAP Positive d-dimer Plan Admit patient to [facility] Obtain blood cultures, wound cultures, including fungal wound culture as in previous culture patient grew yeast Start patient empirically on cefepime/Flagyl, Vanco, fluconazole Obtain infectious disease consult with Dr. Love Obtain right hip x-ray 3 views, rule out any loosening of the hardware, abnormal ossification, or development of osteomyelitis Consult orthopedic doctor Dahlia who previously recommended referral to Dr. Monae in [place] to discuss options, best option from the infectious diseases standpoint would be removal of the hardware, placement of spacer, IV antibiotics for 8 weeks followed by new hardware, from the orthopedic standpoint there might be technical issues that render this option as not the best option, patient needs to be seen in a tertiary referral center as any surgical intervention might be extremely complicated. Patient developed new onset shortness of breath, in the setting of positive d- dimer will order ultrasound lower extremity and CT angiogram. Continue blood pressure medications, cholesterol medication and BPH medicine Lovenox subcu for DVT prophylaxis Advanced Directives Existing Living Will: No Existing Power of Career Services Assistant: No Resuscitation Status VTE Prophylaxis Will order VTE Prophylaxis: Yes
[2017-07-26] MEDS: METRONIDAZOLE / NSS 500 MG in PREMIXED NSS 100 ML IV SCH ×2 (14:10→21:30)
[2017-07-26] MEDS: ENOXAPARIN 40 MG/0.4 ML SYR SQ SCH (14:10)
[2017-07-26] MEDS: CEFEPIME IV 2,000 MG in SYRINGE 7.5 ML IV SCH ×2 (14:10→21:10)
[2017-07-26] MEDS ORDERED: VANCOMYCIN IV 2,750 MG in SODIUM CHLORIDE 0.9% 500ML 500 ML IV ONE (14:30)
--- NOTE | 2017-07-26 14:58 | Medical Consult ---
Consultation Date of Consultation: Jul 26, 2017. Attending Physician: Claudio Terry D.O. 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 He has had several courses of antibiotics for infection, and recently was hospitalized with bacteremia from stenotrophomonas felt secondary to central line infection, which was subsequently removed. He was discharged home and recently changed to the wound Care Center to oral antibiotics, but now with several days of progressively worsening redness of the hip and drainage from the hip wound. He was seen in the Wound Care Center and advised admission to the hospital. He has been started on vancomycin, cefepime, metronidazole, and fluconazole. Her cultures are pending, Gram stain of the wound is unremarkable. He denies any significant fever, pain currently 2/10 intensity right hip. Past Medical/Surgical History Medical Problems: (1) Febrile illness Status: Acute (2) Neutropenia Status: Acute (3) Postoperative wound infection of right hip Status: Acute (4) Sepsis Status: Acute (5) Unspecified open wound, right hip, sequela Status: Acute Medical Problems: (1) Bacteremia (2) Infected prosthetic hip (3) Knee pain (4) Positive blood culture (5) Post op infection (6) Right Hip Wound Drainage Surgical Problems: (1) Post-operative state (2) Post-operative state Family History Heart Disease Hypertension Parkinson's Disease Social History Smoking Status: Never Smoker Drug Use: none Marital Status: Housing Status: lives with family Occupation Status: retired Allergies Coded Allergies: No Known Allergies (Unverified , 07/19/17) Current Inpatient Medications Current Inpatient Medications Medications (Trade) Dose Ordered Sig/Chris Route Start Time Stop Time Status Last Admin Dose Admin Acetaminophen (Tylenol Tab) 1,000 mg Q8H PRN PO 07/26/17 12:00 08/25/17 11:59 Allopurinol (Zyloprim Tab) 300 mg QAM PO 07/27/17 09:00 08/26/17 08:59 Aspirin (Ecotrin Tab) 81 mg QAM PO 07/27/17 09:00 08/26/17 08:59 Atenolol (Tenormin Tab) 25 mg QAM PO 07/27/17 09:00 08/26/17 08:59 Finasteride (Proscar Tab) 5 mg QAM PO 07/27/17 09:00 08/26/17 08:59 HCTZ/Losartan Potassium (Hyzaar 50-12.5 Tab) 0.5 tab QAM PO 07/27/17 09:00 08/26/17 08:59 Nortriptyline HCl (Pamelor Cap) 20 mg HS PO 07/26/17 21:00 08/25/17 20:59 Tamsulosin HCl (Flomax Cap) 0.4 mg BID PO 07/26/17 21:00 08/25/17 20:59 Ketoconazole (Nizoral 2% Crm) 1 appln BID EXT 07/26/17 21:00 08/25/17 20:59 Enoxaparin Sodium (Lovenox Inj) 40 mg Q24H SQ 07/26/17 14:00 08/25/17 13:59 07/26/17 14:10 40 MG Al Hydrox/Mg Hydrox/Simethicone (Maalox Max Susp) 15 ml Q4H PRN PO 07/26/17 12:00 08/25/17 11:59 Magnesium Hydroxide (Milk Of Magnesia Susp) 30 ml Q6H PRN PO 07/26/17 12:00 08/25/17 11:59 Polyethylene (Miralax Powder Packet) 17 gm DAILY PRN PO 07/26/17 12:00 08/25/17 11:59 Zolpidem Tartrate (Ambien Tab) 5 mg HSZ PRN PO 07/26/17 12:00 08/25/17 11:59 Ondansetron HCl (Zofran Inj) 4 mg Q6H PRN IV 07/26/17 12:00 08/25/17 11:59 Zolpidem Tartrate (Ambien Tab) 5 mg HSZ PRN PO 07/26/17 12:00 08/25/17 11:59 Ioversol (Optiray 320) 100 ml UD PRN IV 07/26/17 13:15 07/30/17 13:14 Vancomycin HCl 1750 mg/Sodium Chloride 535 ml @ 200 mls/hr Q10H IV 07/26/17 22:00 09/06/17 21:59 Miscellaneous Information (Consult) 1 ea UD PRN N/A 07/26/17 13:15 08/25/17 13:14 Fluconazole/ Sodium Chloride 200 mg/Prmx 100 ml @ 100 mls/hr DAILY@1200 IV 07/26/17 15:00 09/06/17 14:59 Metronidazole 500 mg/Prmx 100 ml @ 100 mls/hr Q8H IV 07/26/17 14:00 09/06/17 13:59 07/26/17 14:10 100 MLS/HR Lactobacillus Acidophilus (Floranex Tab) 4 tab TIDM PO 07/26/17 17:00 08/25/17 16:59 Cefepime HCl 2000 mg/Syringe 20 ml @ 5 mls/min Q8H IV 07/26/17 14:00 09/06/17 13:59 07/26/17 14:10 5 MLS/MIN Vancomycin HCl 2750 mg/Sodium Chloride 555 ml @ 200 mls/hr ONE ONCE IV 07/26/17 14:30 07/26/17 17:16 Review of Systems All systems were reviewed and are negative except as per HPI Physical Exam Date Time Temp Pulse Resp B/P (MAP) Pulse Ox O2 Delivery O2 Flow Rate FiO2 07/26/17 11:02 36.4 61 18 156/99 96 Room Air General Appearance: WD/WN, no apparent distress Head: normocephalic, atraumatic Eyes: normal inspection, EOMI, sclerae normal ENT: normal ENT inspection, hearing grossly normal, pharynx normal Neck: supple, no adenopathy, thyroid normal, trachea midline Respiratory/Chest: chest non-tender, lungs clear, normal breath sounds, no respiratory distress Cardiovascular: regular rate, rhythm, no gallop, no murmur Abdomen/GI: normal bowel sounds, non tender, soft, no organomegaly Back: normal inspection, no CVA tenderness Extremities/Musculoskelatal: no calf tenderness, normal capillary refill, non- tender Neurologic/Psych: alert, normal mood/affect, oriented x 3 Skin: normal color, no rash, + pertinent finding (large right hip wound with surrounding erythema and purulent drainage.) Lymphatic: no adenopathy Laboratory Results Date/Time Source Procedure Growth Status 07/26/17 12:04 Blood Blood Culture Pending Received 07/26/17 11:55 Blood Blood Culture Pending Received 07/26/17 13:06 Incision Site Hip , Right Gram Stain - Final Resulted 07/26/17 13:06 Incision Site Hip , Right Wound Culture Pending Resulted Last 24 Hours Test 07/26/17 11:55 White Blood Count 6.81 K/uL Red Blood Count 5.05 M/uL Hemoglobin 12.9 g/dL Hematocrit 39.9 % Mean Corpuscular Volume 79.0 fL Mean Corpuscular Hemoglobin 25.5 pg Mean Corpuscular Hemoglobin Concent 32.3 g/dl Platelet Count 264 K/uL Mean Platelet Volume 10.0 fL Neutrophils (%) (Auto) 57.1 % Lymphocytes (%) (Auto) 26.0 % Monocytes (%) (Auto) 14.0 % Eosinophils (%) (Auto) 1.6 % Basophils (%) (Auto) 0.4 % Neutrophils # (Auto) 3.89 K/uL Lymphocytes # (Auto) 1.77 K/uL Monocytes # (Auto) 0.95 K/uL Eosinophils # (Auto) 0.11 K/uL Basophils # (Auto) 0.03 K/uL RDW Standard Deviation 45.5 fL RDW Coefficient of Variation 15.8 % Immature Granulocyte % (Auto) 0.9 % Immature Granulocyte # (Auto) 0.06 K/uL Erythrocyte Sedimentation Rate 64 mm/hr Prothrombin Time 10.9 SECONDS Prothromb Time International Ratio 1.0 D-Dimer 2170 ug/L FEU Sodium Level 137 mmol/L Potassium Level 3.5 mmol/L Chloride Level 105 mmol/L Carbon Dioxide Level 26 mmol/L Anion Gap 6.0 mmol/L Blood Urea Nitrogen 15 mg/dl Creatinine 0.81 mg/dl Est Creatinine Clear Calc Drug Dose 139.2 ml/min Estimated GFR () 105.8 Estimated GFR (Non- 91.3 BUN/Creatinine Ratio 18.6 Random Glucose 131 mg/dl Calcium Level 8.5 mg/dl Total Bilirubin 0.4 mg/dl Aspartate Amino Transf (AST/SGOT) 14 U/L Alanine Aminotransferase (ALT/SGPT) 16 U/L Alkaline Phosphatase 94 U/L C-Reactive Protein 10.30 mg/dl Total Protein 7.6 gm/dl Albumin 2.8 gm/dl Globulin 4.8 gm/dl Albumin/Globulin Ratio 0.6 Assessment & Plan Chronically infected right SURJIT with worsening wound infection. Broad spectrum antibiotics started, will adjust once further culture results available. Will likely require more prolonged IV antibiotic course. Will follow,
--- NOTE | 2017-07-26 15:17 | Pharmacy Progress Note ---
Pharmacy Abx Initial Consult Date of Service Jul 26, 2017. Pharmacy Dosing Scope Date of Consult: 07/26/17 Consultation requested by: Dr. Child Pharmacy is consulted to initiate Vancomycin IV dosing therapy, order appropriate labs and adjust drug dose/frequency. Subjective The patient is a 67 year old male admitted on Jul 26, 2017 at 10:34. Objective Height (Feet): 5 Height (Inches): 9.00 Weight (Kilograms): 175.800 (BMI 57.2 ) Vital Signs (Past 12Hrs) Vital Signs Past 12 Hours Date Time Temp Pulse Resp B/P (MAP) Pulse Ox O2 Delivery O2 Flow Rate FiO2 07/26/17 11:02 36.4 61 18 156/99 96 Room Air Lab Results (24Hrs) Laboratory Tests (24 Hours) Test 07/26/17 11:55 C-Reactive Protein 10.30 mg/dl (0-0.29) H Erythrocyte Sedimentation Rate 64 mm/hr (0-14) H White Blood Count 6.81 K/uL (4.8-10.8) Red Blood Count 5.05 M/uL (4.7-6.1) Hemoglobin 12.9 g/dL (14.0-18.0) L Hematocrit 39.9 % (42-52) L Mean Corpuscular Volume 79.0 fL (80-100) L Mean Corpuscular Hemoglobin 25.5 pg (25-34) Mean Corpuscular Hemoglobin Concent 32.3 g/dl (32-36) Platelet Count 264 K/uL (130-400) Mean Platelet Volume 10.0 fL (7.4-10.4) Neutrophils (%) (Auto) 57.1 % Lymphocytes (%) (Auto) 26.0 % Monocytes (%) (Auto) 14.0 % Eosinophils (%) (Auto) 1.6 % Basophils (%) (Auto) 0.4 % Neutrophils # (Auto) 3.89 K/uL (1.4-6.5) Lymphocytes # (Auto) 1.77 K/uL (1.2-3.4) Monocytes # (Auto) 0.95 K/uL (0.11-0.59) H Eosinophils # (Auto) 0.11 K/uL (0-0.5) Basophils # (Auto) 0.03 K/uL (0-0.2) Micro Results Date/Time Source Procedure Growth Status 07/26/17 12:04 Blood Blood Culture Pending Received 07/26/17 11:55 Blood Blood Culture Pending Received 07/26/17 13:06 Incision Site Hip , Right Gram Stain - Final Resulted 07/26/17 13:06 Incision Site Hip , Right Wound Culture Pending Resulted Risk Factors for Resistance * Antimicrobial use within the last 90 days (Doxycycline and Fluconazole) Assessment & Plan Assessment Admitted for bone/joint infection. Recently followed by ID as outpatient and treated with Doxycycline and Fluconazole. Initiated on Cefepime, Metronidazole, Vancomycin, and Fluconazole upon admission. Multiple previous admissions for bacteremia and hip infection. Plan Vancomycin IV * Loading dose: 2750 mg (15 mg/kg) - max dose dependent on concentration * Maintenance dose: 1750 mg IV (10 mg/kg) every 10 hours - starting maint. dose early due to low loading dose. * Goal trough level for bone/joint infection : 15 to 20 mcg/mL * Trough level ordered for 07/27/17 @ 1730 * A less than traditional dose and/or extended dosing interval has/have been selected due to likelihood of drug accumulation in obese patient. Pharmacy will continue to follow and will adjust dose/frequency as necessary. Thank you.
--- NOTE | 2017-07-26 15:42 | DIAGNOSTIC IMAGING REPORT ---
(CHEST FOR PE) ANGIO WITH CLINICAL HISTORY: 67 years-old Male presenting with ^sob w positive d dimer. TECHNIQUE: Multidetector CT angiography of the chest was performed after administration of intravenous contrast. 3-D volumetric and/or maximum intensity projection (MIP) images were subsequently reconstructed for review. IV contrast: 96 mL of Optiray 320. A dose lowering technique was used consistent with the principles of ALARA (as low as reasonably achievable). COMPARISON: Chest x-ray from 06/30/2017. CT DOSE (mGy.cm): The estimated cumulative dose is 771.54 mGy.cm. FINDINGS: Audio Experience Expert topogram: Cardiomegaly. Pulmonary vasculature: The study is suboptimal for the assessment of the pulmonary vascular tree secondary to timing of the contrast bolus, body habitus, and respiratory motion artifact. Allowing for limited image quality, no central filling defect to suggest pulmonary embolus. Main pulmonary artery is not enlarged. No flattening of the interventricular septum. No intracardiac filling defect. No reflux of contrast into the hepatic veins. Remaining chest: On soft tissue windows, normal thyroid and thoracic inlet. Right gynecomastia. Sternalis muscles noted. No axillary, supraclavicular, hilar, or mediastinal lymphadenopathy. Normal aorta. Multichamber enlargement of the heart. Coronary artery calcification. No pericardial or pleural effusion. Hepatic steatosis. Cholecystectomy clips. On lung windows, minimal dependent changes likely atelectasis. Mosaic attenuation suggest small airways disease. No other focal nodule or infiltrate. Airways patent. On bone windows, degenerative changes of the spine. IMPRESSION: 1. Allowing for suboptimal image quality, no evidence of pulmonary embolus. 2. Mosaic attenuation suggest small airways disease. 3. Hepatic steatosis. Electronically signed by: Adelfo Lamb M.D. 07/26/2017 3:40 PM Dictated Date/Time: 07/26/2017 3:33 PM
--- NOTE | 2017-07-26 16:04 | DIAGNOSTIC IMAGING REPORT ---
ULTRASOUND BILATERAL LOWER EXTREMITY VENOUS CLINICAL HISTORY: Leg pain. COMPARISON STUDY: No priors. TECHNIQUE: Real-time, grayscale, and color Doppler sonography of the deep veins of the right and left lower extremity was performed from the inguinal crease to the calf. Compression and augmentation were utilized. FINDINGS: There is no sonographic evidence of deep venous thrombosis identified in the right or left lower extremity. The common femoral, superficial femoral, and popliteal veins are patent and normally compressible bilaterally. The greater saphenous vein and the profunda femoris vein at the junction with the common femoral vein are clear in both legs. The visualized calf veins are patent bilaterally. IMPRESSION: There is no sonographic evidence of deep venous thrombosis identified in the right or left lower extremity. Electronically signed by: Demond Haro M.D. 07/26/2017 4:02 PM Dictated Date/Time: 07/26/2017 4:02 PM
--- NOTE | 2017-07-26 16:17 | DIAGNOSTIC IMAGING REPORT ---
R PELVIS/UNILATERAL HIP 2-3VIEWS CLINICAL HISTORY: hardware loosening, ossification or osteomyelitis pain COMPARISON: None DISCUSSION: Total right hip arthroplasty good position. Good contact between prosthetic and underlying bone. Heterotopic bone formation lateral to the greater trochanter. No evidence for acetabular protrusion. Lungs and prosthetic apparently involving the lower femur. There is no evidence for soft tissue swelling. IMPRESSION: Degenerative and postoperative change. No acute process. The above report was generated using voice recognition software. It may contain grammatical, syntax or spelling errors. Electronically signed by: Reymundo Cortes M.D. 07/26/2017 4:15 PM Dictated Date/Time: 07/26/2017 4:14 PM
[2017-07-26] MEDS: LACTOBACILLUS ACIDOPHILUS (FLORANEX) TAB PO SCH (16:23)
--- NOTE | 2017-07-26 16:24 | CONSULTATION REPORT ---
DATE OF CONSULTATION: 07/26/2017 CHIEF COMPLAINT: Tenderness over the right buttock and open wound from previous right hip infection. HISTORY OF PRESENT ILLNESS: Patient is a 67-year-old white male known to our practice with an extensive history of right hip infection that started around 05/2016. He has undergone irrigation and debridement in May of last year with acetabular liner replacement and femoral head replacement and extensive debridement with implantation of antibiotic beads. The patient has been since then going through wound care center and off and on having wound VAC care and has had several flareups of infections over the year. His last was just in early June of this year and he was discharged to home on 07/04/2017 after a 4-day stay. At that time his Marie catheter was felt to be the culprit of infection and showed Stenotrophomonas maltophilia in his blood cultures and also catheter tip. He underwent removal of the catheter at that time by Dr. Montalvo. He was then sent home on 07/04/2017. Patient now returns and states that over the weekend he was feeling poorly and was having some chills and fevers off and on and felt fatigued and question of shortness of breath. He was seen in the wound clinic today and found to have an inflamed wound around the open wound of his right hip. It was felt that he needed to be admitted for further care and is now here for his wound infection. PAST MEDICAL HISTORY: Previous bacteremia on 07/04/2017, history of chronic prosthetic hip infection, gout, hypertension, dyslipidemia, BPH, obstructive sleep apnea with use of CPAP machine, GERD, history of DVT in the past postoperatively, rheumatic fever as a child, venous insufficiency, hypogonadism with low testosterone, morbid obesity. PAST SURGICAL HISTORY: He has had left and right knee replacements with a revision of his right total knee in the past as well as polyethylene bearing change in the left knee, inguinal hernia repair, cholecystectomy, appendectomy and above noted hip surgery in the past. SOCIAL HISTORY: Patient is and lives with his . 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 FAMILY HISTORY: Heart disease, hypertension, Parkinson's disease. MEDICATIONS: Tylenol 1000 mg p.o. as directed, allopurinol 300 mg p.o. q.a.m., aspirin 81 mg p.o. q.a.m., atenolol 25 mg p.o. q.a.m., vitamin D3 2000 units p.o. q.a.m.; clotrimazole, betamethasone and zinc 1 application topically b.i.d.; vitamin B12 1000 mcg p.o. q.a.m., doxycycline 100 mg p.o. b.i.d., finasteride 5 mg p.o. q.a.m., fluconazole 200 mg p.o. at bedtime, Hyzaar 12.5 mg/50 half tab p.o. q.a.m., ketaconazole 1 application topically b.i.d., nortriptyline 20 mg p.o. at bedtime, tamsulosin 0.4 mg p.o. b.i.d., testosterone daily. ALLERGIES: NKDA. REVIEW OF SYSTEMS: As per admitting history and physical. PHYSICAL EXAMINATION: VITAL SIGNS: Temperature 36.4, pulse was 61, respirations 18, BP 156/99, pulse ox 96 on room air. GENERAL: Currently, when walking into the room, patient is sitting at the bedside and appears comfortable and in no acute distress. He is alert and oriented x3, pleasant and cooperative. Patient clearly has good range of motion of his right hip as he demonstrates to me while standing up and then getting back into his bed, demonstrating flexion, extension of the hip and with some internal and external rotation as well without discomfort at all. MUSCULOSKELETAL: On examination of his right hip, the patient is morbidly obese and he has his familiar open wound on the right hip that has packing in it from the wound care center that also has an Aquacel AG in and around the wound itself. The patient does have a moderate cellulitis that is marked clearly and is slightly on the anterior portion above the open wound itself and old incision, but then spreads greatly down the posterior aspect of the patient's right buttock. This is somewhat tender on palpation and looking at the wound, I left the packing in and there were some fibrous edges to the wound itself with a question of some purulent discharge that is further in the wound. Range of motion of the hip does not produce pain, no purulent discharge coming out of the wound at this time. He does have venous stasis changes which have not changed since the last time I saw him. His range of motion of his hip is actually within normal limits without pain in the groin or hip itself. His exam basically has not changed since the last time I saw him in early June concerning his hip range of motion. Distal pulses are equal bilaterally at the lower extremities and there is no gross motor or sensory loss at this time. DIAGNOSIS: Chronic wound infection with likely chronic total hip arthroplasty infection, right hip. PLAN: At this time, antibiotics will be ordered as per medicine service and infectious disease team. I have discussed the case briefly with Dr. Villagomez who had seen the patient last time. There was a long discussion of whether the patient should be seen in [place] by Dr. Monae for further workup and possibility of explanting the hardware and implanting an antibiotic spacer amongst other ways of taking care of this problem. The patient at this time still does not want more surgery but is willing to entertain the idea of going down to see Dr. Monae to get his opinion on his right SURJIT infection. Blood cultures have been drawn and a wound culture from the incision site has been taken. We will wait to see if these produce any organisms. At this time the wound site culture is showing rare WBCs and no organisms. Blood cultures are again pending. Dr. Villagomez will speak to the patient tomorrow about further plans of possibly going to see Dr. Monae down in [place] versus possible treatment here. Thank you for this consult. PANCHO
[2017-07-26 16:25] VITALS: O2SAT 96
[2017-07-26] MEDS: FLUCONAZOLE / NSS 200 MG in PREMIXED NSS 100 ML IV SCH (16:49)
[2017-07-26] MEDS: TAMSULOSIN HCL 0.4 MG CAP PO SCH (21:06)
[2017-07-26] MEDS: NORTRIPTYLINE HCL 10 MG CAP PO SCH (21:07)
[2017-07-26] MEDS: KETOCONAZOLE 2% CR 15 GM TUBE EXT SCH (21:07)
[2017-07-26] MEDS: VANCOMYCIN IV 1,750 MG in SODIUM CHLORIDE 0.9% 500ML 500 ML IV SCH (21:29)
[2017-07-26 22:31] VITALS: BP 152/100; PULSE 80; TEMP 36.4; O2SAT 98
[2017-07-27 04:21] VITALS: BP 147/76
[2017-07-27] MEDS: METRONIDAZOLE / NSS 500 MG in PREMIXED NSS 100 ML IV SCH ×3 (06:24→22:16)
[2017-07-27 06:25] LABS: BASO % 0.4 %; BASO ABS # 0.03 K/uL (0-0.2); EOS % 2.3 %; EOS ABS # 0.19 K/uL (0-0.5); HEMATOCRIT 39.7 % (42-52); HEMOGLOBIN 12.8 g/dL (14.0-18.0); IG# 0.06 K/uL (0.00-0.02); LYMPH ABS # 1.49 K/uL (1.2-3.4); MEAN CELL VOLUME 79.6 fL (80-100); MEAN CORPUSCULAR HEMOGLOBIN 25.7 pg (25-34); MEAN CORPUSCULAR HGB CONC 32.2 g/dl (32-36); MEAN PLATELET VOLUME 9.5 fL (7.4-10.4); MONO % 10.6 %; MONO ABS # 0.88 K/uL (0.11-0.59); NEUT ABS # 5.64 K/uL (1.4-6.5); PLATELET COUNT 263 K/uL (130-400); RED CELL DISTRIBUTION WIDTH CV 15.7 % (11.5-14.5); RED CELL DISTRIBUTION WIDTH SD 45.5 fL (36.4-46.3); WHITE BLOOD COUNT 8.29 K/uL (4.8-10.8)
[2017-07-27] MEDS: CEFEPIME IV 2,000 MG in SYRINGE 7.5 ML IV SCH ×3 (06:25→22:16)
[2017-07-27 06:45] VITALS: BP 133/88; PULSE 89; TEMP 36.3; O2SAT 94
[2017-07-27 06:45] LABS: HEMOGLOBIN A1C 6.1 % (4.5-5.6)
[2017-07-27 07:01] LABS: ALBUMIN 2.8 gm/dl (3.4-5.0); CALCIUM 8.1 mg/dl (8.5-10.1); CREATININE 0.85 mg/dl (0.60-1.40); POTASSIUM 3.8 mmol/L (3.5-5.1)
[2017-07-27 07:04] LABS: TOTAL PROTEIN 7.4 gm/dl (6.4-8.2)
[2017-07-27] MEDS ORDERED: MAGNESIUM SULFATE 1GM / D5W 100 ML IV ONE (08:00)
[2017-07-27] MEDS: VANCOMYCIN IV 1,750 MG in SODIUM CHLORIDE 0.9% 500ML 500 ML IV SCH ×2 (08:08→17:47)
[2017-07-27] MEDS: TAMSULOSIN HCL 0.4 MG CAP PO SCH ×2 (08:09→21:24)
[2017-07-27] MEDS: LOSARTAN/HCTZ 50-12.5 EA TAB PO SCH (08:09)
[2017-07-27] MEDS: ALLOPURINOL 300 MG TAB PO SCH (08:09)
[2017-07-27] MEDS: LACTOBACILLUS ACIDOPHILUS (FLORANEX) TAB PO SCH ×3 (08:09→17:11)
[2017-07-27] MEDS: FINASTERIDE 5 MG TAB PO SCH (08:09)
[2017-07-27] MEDS: ASPIRIN 81 MG ECTAB PO SCH (08:09)
[2017-07-27] MEDS: KETOCONAZOLE 2% CR 15 GM TUBE EXT SCH ×2 (08:10→21:00)
[2017-07-27] MEDS: FLUCONAZOLE / NSS 200 MG in PREMIXED NSS 100 ML IV SCH (11:26)
[2017-07-27] MEDS: ENOXAPARIN 40 MG/0.4 ML SYR SQ SCH (14:05)
[2017-07-27 15:47] VITALS: BP 132/68; PULSE 83; TEMP 36.5; O2SAT 98
--- NOTE | 2017-07-27 16:26 | Hospitalist Progress Note ---
Hospitalist Progress Note Date of Service July 27, 2017. Subjective Pt evaluation today including: conversation w/ patient, physical exam, chart review, lab review, review of studies, conversation w/ [employer] sales consultant (Wound Care Nurse), review of inpatient medication list Patient seen and evaluated. No acute events overnight. States he is feeling better without chills or fatigue today. Reports thick green pus-like discharge from his hip. Has been really reluctant to undergo surgery but understands that conservative measures may be exhausted at this point. Is interested in F/U with Dr. Monae from [place]. Current plan is to continue Abx and Fungal coverage. Possibility of an irrigation wound vac may be applied. Appreciate input from orthopedics/ID/Wound. Constitutional: No fever, No chills Respiratory: No cough, No shortness of breath Cardiovascular: No chest pain Abdomen: No pain Musculoskeletal: No joint pain Male : No dysuria Heme: No abnormal bleeding/bruising Medications Current Inpatient Medications Medications (Trade) Dose Ordered Sig/Chris Route Start Time Stop Time Status Last Admin Dose Admin Acetaminophen (Tylenol Tab) 1,000 mg Q8H PRN PO 07/26/17 12:00 08/25/17 11:59 Allopurinol (Zyloprim Tab) 300 mg QAM PO 07/27/17 09:00 08/26/17 08:59 07/27/17 08:09 300 MG Aspirin (Ecotrin Tab) 81 mg QAM PO 07/27/17 09:00 08/26/17 08:59 07/27/17 08:09 81 MG Atenolol (Tenormin Tab) 25 mg QAM PO 07/27/17 09:00 08/26/17 08:59 07/27/17 08:19 25 MG Finasteride (Proscar Tab) 5 mg QAM PO 07/27/17 09:00 08/26/17 08:59 07/27/17 08:09 5 MG HCTZ/Losartan Potassium (Hyzaar 50-12.5 Tab) 0.5 tab QAM PO 07/27/17 09:00 08/26/17 08:59 07/27/17 08:09 0.5 TAB Nortriptyline HCl (Pamelor Cap) 20 mg HS PO 07/26/17 21:00 08/25/17 20:59 07/26/17 21:07 20 MG Tamsulosin HCl (Flomax Cap) 0.4 mg BID PO 07/26/17 21:00 08/25/17 20:59 07/27/17 08:09 0.4 MG Ketoconazole (Nizoral 2% Crm) 1 appln BID EXT 07/26/17 21:00 08/25/17 20:59 07/27/17 08:10 1 APPLN Enoxaparin Sodium (Lovenox Inj) 40 mg Q24H SQ 07/26/17 14:00 08/25/17 13:59 07/27/17 14:05 40 MG Al Hydrox/Mg Hydrox/Simethicone (Maalox Max Susp) 15 ml Q4H PRN PO 07/26/17 12:00 08/25/17 11:59 Magnesium Hydroxide (Milk Of Magnesia Susp) 30 ml Q6H PRN PO 07/26/17 12:00 08/25/17 11:59 Polyethylene (Miralax Powder Packet) 17 gm DAILY PRN PO 07/26/17 12:00 08/25/17 11:59 Zolpidem Tartrate (Ambien Tab) 5 mg HSZ PRN PO 07/26/17 12:00 08/25/17 11:59 Ondansetron HCl (Zofran Inj) 4 mg Q6H PRN IV 07/26/17 12:00 08/25/17 11:59 Zolpidem Tartrate (Ambien Tab) 5 mg HSZ PRN PO 07/26/17 12:00 08/25/17 11:59 Ioversol (Optiray 320) 100 ml UD PRN IV 07/26/17 13:15 07/30/17 13:14 Vancomycin HCl 1750 mg/Sodium Chloride 535 ml @ 200 mls/hr Q10H IV 07/26/17 22:00 09/06/17 21:59 07/27/17 08:08 200 MLS/HR Miscellaneous Information (Consult) 1 ea UD PRN N/A 07/26/17 13:15 08/25/17 13:14 Fluconazole/ Sodium Chloride 200 mg/Prmx 100 ml @ 100 mls/hr DAILY@1200 IV 07/26/17 15:00 09/06/17 14:59 07/27/17 11:26 100 MLS/HR Metronidazole 500 mg/Prmx 100 ml @ 100 mls/hr Q8H IV 07/26/17 14:00 09/06/17 13:59 07/27/17 14:04 100 MLS/HR Lactobacillus Acidophilus (Floranex Tab) 4 tab TIDM PO 07/26/17 17:00 08/25/17 16:59 07/27/17 11:26 4 TAB Cefepime HCl 2000 mg/Syringe 20 ml @ 5 mls/min Q8H IV 07/26/17 14:00 09/06/17 13:59 07/27/17 14:04 5 MLS/MIN Objective Vital Signs Date Time Temp Pulse Resp B/P (MAP) Pulse Ox O2 Delivery O2 Flow Rate FiO2 07/27/17 15:47 36.5 83 18 132/68 (89) 98 Room Air 07/27/17 08:00 Room Air 07/27/17 06:45 36.3 89 20 133/88 (103) 94 Room Air 07/27/17 04:21 147/76 (99) 07/27/17 00:15 Room Air 07/26/17 22:31 36.4 80 20 152/100 (117) 98 Room Air 07/26/17 16:25 96 Room Air Physical Exam General Appearance: WD/WN, no apparent distress, + obese Eyes: sclerae normal ENT: hearing grossly normal Neck: supple, no JVD, trachea midline Respiratory/Chest: lungs clear, normal breath sounds, no respiratory distress, no accessory muscle use Cardiovascular: regular rate, rhythm, no gallop, no murmur Abdomen: normal bowel sounds, non tender, soft Extremities: + pertinent finding (chronic aiken of b/l shins) Neurologic/Psychiatric: alert, oriented x 3 Skin: normal color, warm/dry Laboratory Results Last 24 Hours Test 07/27/17 06:09 White Blood Count 8.29 K/uL Red Blood Count 4.99 M/uL Hemoglobin 12.8 g/dL Hematocrit 39.7 % Mean Corpuscular Volume 79.6 fL Mean Corpuscular Hemoglobin 25.7 pg Mean Corpuscular Hemoglobin Concent 32.2 g/dl Platelet Count 263 K/uL Mean Platelet Volume 9.5 fL Neutrophils (%) (Auto) 68.0 % Lymphocytes (%) (Auto) 18.0 % Monocytes (%) (Auto) 10.6 % Eosinophils (%) (Auto) 2.3 % Basophils (%) (Auto) 0.4 % Neutrophils # (Auto) 5.64 K/uL Lymphocytes # (Auto) 1.49 K/uL Monocytes # (Auto) 0.88 K/uL Eosinophils # (Auto) 0.19 K/uL Basophils # (Auto) 0.03 K/uL RDW Standard Deviation 45.5 fL RDW Coefficient of Variation 15.7 % Immature Granulocyte % (Auto) 0.7 % Immature Granulocyte # (Auto) 0.06 K/uL Sodium Level 138 mmol/L Potassium Level 3.8 mmol/L Chloride Level 104 mmol/L Carbon Dioxide Level 27 mmol/L Anion Gap 7.0 mmol/L Blood Urea Nitrogen 15 mg/dl Creatinine 0.85 mg/dl Est Creatinine Clear Calc Drug Dose 132.7 ml/min Estimated GFR () 103.8 Estimated GFR (Non- 89.5 BUN/Creatinine Ratio 17.9 Random Glucose 117 mg/dl Estimated Average Glucose 128 mg/dl Hemoglobin A1c 6.1 % Calcium Level 8.1 mg/dl Magnesium Level 1.7 mg/dl Total Bilirubin 0.4 mg/dl Aspartate Amino Transf (AST/SGOT) 14 U/L Alanine Aminotransferase (ALT/SGPT) 17 U/L Alkaline Phosphatase 95 U/L Total Protein 7.4 gm/dl Albumin 2.8 gm/dl Globulin 4.6 gm/dl Albumin/Globulin Ratio 0.6 Assessment and Plan 67-year-old man with past medical history of gout, hypertension, dyslipidemia, BPH, obstructive sleep apnea and infected right hip prosthesis. Patient is on chronic suppression with antibiotics was sent from wound clinic with active hip infection at the surgical site. 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: - Wound cx with small amounts of Group B Beta Strep and Corynebacterium species ; BCx pending so far NGTD - Will need a more long-term venous access as his Marie was removed previously due to bacteremia - Cefepime 2 g IV Q8H, Flagyl 500 mg IV Q8H, Vancomycin; Diflucan 200 mg IV daily - ID following - Abx as above and will re-assess - suspecting long-term IV Abx - Wound Care Following - appreciate assistance and possible vac placement - Orthopedics following - appreciate recommendations and possible referral -- Likely need for removal of hardware with spacer while finishing Abx with then new hardware SOB: RESOLVED - CTA with no evidence of PE; No clear etiology HTN: STABLE - Atenolol 25 mg daily, Hyzaar 0.5 mg daily DVT Prophylaxis: Lovenox Disposition: - Possible need for surgery likely in a tertiary center; Possible Abx initiated and outpatient referral Continued [facility] stay due to: multiple IV medications needed Discharge planning: uncertain
[2017-07-27] MEDS ORDERED: VANCOMYCIN TROUGH ONE (17:30)
[2017-07-27] MEDS: ACETAMINOPHEN 500 MG TAB PO PRN (17:47)
--- NOTE | 2017-07-27 20:20 | Orthopedic Progress Note ---
Orthopedic Progress Note Date of Service July 27, 2017. Subjective Additional Notes: Patient seen sitting at bedside, comfortable, denies pain or fevers. States he feels his cellulitis is improving around his hip wound but RLE cellulitis unchanged. Objective NAD, AOX3 RLE NVSI +EHL/FHL/TA/GS SILT grossly, CR< 2 seconds, LE venostasis with erythema , right hip wound dressing cdi, decreased right hip erythema Date Time Temp Pulse Resp B/P (MAP) Pulse Ox O2 Delivery O2 Flow Rate FiO2 07/27/17 16:00 Room Air 07/27/17 15:47 36.5 83 18 132/68 (89) 98 Room Air 07/27/17 08:00 Room Air 07/27/17 06:45 36.3 89 20 133/88 (103) 94 Room Air 07/27/17 04:21 147/76 (99) 07/27/17 00:15 Room Air 07/26/17 22:31 36.4 80 20 152/100 (117) 98 Room Air Laboratory Results 24 Hours: Test 07/27/17 06:09 White Blood Count 8.29 K/uL Red Blood Count 4.99 M/uL Hemoglobin 12.8 g/dL Hematocrit 39.7 % Mean Corpuscular Volume 79.6 fL Mean Corpuscular Hemoglobin 25.7 pg Mean Corpuscular Hemoglobin Concent 32.2 g/dl Platelet Count 263 K/uL Mean Platelet Volume 9.5 fL Neutrophils (%) (Auto) 68.0 % Lymphocytes (%) (Auto) 18.0 % Monocytes (%) (Auto) 10.6 % Eosinophils (%) (Auto) 2.3 % Basophils (%) (Auto) 0.4 % Neutrophils # (Auto) 5.64 K/uL Lymphocytes # (Auto) 1.49 K/uL Monocytes # (Auto) 0.88 K/uL Eosinophils # (Auto) 0.19 K/uL Basophils # (Auto) 0.03 K/uL Assessment & Plan Assessment: 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 Considering he's had multiple recent admissions for symptoms pertaining to his chronic infection I strongly feel that his clinical course is worsening rather than improving or stabilizing. The patient did express understanding to this. It is my strong recommendations that he have surgical intervention including explant of total hip prosthesis, I+D followed by a course of IV antibiotics and continued wound care prior to any reimplantation. I discussed this risks of nonoperative treatment which does include continuation and worsening of his infection, loss of function, heterotrophic ossification of the right hip, osteolysis, involvement of other extremities, sepsis, loss of limb, loss of life. The patient displays understanding of the risks however it has been his ongoing informed decision to maintain nonoperative treatment and suppressive antibiotics. I did discuss with him again that I feel his case is complex and his postoperative course would be complicated which would warrant extensive postoperative care/intervention and his needs would best be suited by a [facility] and again encourage him to follow-up with Dr. Monae in [place] to discuss any surgical intervention for immediate and parts counterman follow up vs chronic suppressive care. The patient did express understanding and will move forward with following up with Dr. Monae. If he continues to decline or delay surgical intervention he will need to continue with suppressive abx and have x-rays taken at least every 6 months to monitor for any worsening bony involvement and/or loosening of the prosthesis. It is also imperative that the patient receive proper nutritional intervention to aid in wound healing and nutritional labs should be followed. He will also need to continue with wound care clinic.
[2017-07-27] MEDS: NORTRIPTYLINE HCL 10 MG CAP PO SCH (21:23)
[2017-07-28 01:06] VITALS: BP 184/78; PULSE 95; TEMP 36.6; O2SAT 92
[2017-07-28] MEDS: VANCOMYCIN IV 1,750 MG in SODIUM CHLORIDE 0.9% 500ML 500 ML IV SCH (03:44)
[2017-07-28] MEDS: CEFEPIME IV 2,000 MG in SYRINGE 7.5 ML IV SCH ×2 (05:48→13:51)
[2017-07-28] MEDS: METRONIDAZOLE / NSS 500 MG in PREMIXED NSS 100 ML IV SCH ×2 (06:05→13:43)
[2017-07-28 07:19] VITALS: BP 117/77; PULSE 86; TEMP 36.6; O2SAT 95
[2017-07-28] MEDS: ASPIRIN 81 MG ECTAB PO SCH (09:28)
[2017-07-28] MEDS: TAMSULOSIN HCL 0.4 MG CAP PO SCH ×2 (09:28→21:15)
[2017-07-28] MEDS: LOSARTAN/HCTZ 50-12.5 EA TAB PO SCH (09:28)
[2017-07-28] MEDS: FINASTERIDE 5 MG TAB PO SCH (09:28)
[2017-07-28] MEDS: LACTOBACILLUS ACIDOPHILUS (FLORANEX) TAB PO SCH ×3 (09:29→16:55)
[2017-07-28] MEDS: KETOCONAZOLE 2% CR 15 GM TUBE EXT SCH ×2 (09:30→21:00)
[2017-07-28] MEDS: ALLOPURINOL 300 MG TAB PO SCH (09:30)
[2017-07-28 09:34] VITALS: BP 188/94; PULSE 103
[2017-07-28] MEDS: ACETAMINOPHEN 500 MG TAB PO PRN ×2 (09:35→21:32)
[2017-07-28] MEDS: FLUCONAZOLE / NSS 200 MG in PREMIXED NSS 100 ML IV SCH (12:20)
[2017-07-28] MEDS ORDERED: VANCOMYCIN TROUGH ONE (13:30)
[2017-07-28] MEDS: ENOXAPARIN 40 MG/0.4 ML SYR SQ SCH (13:52)
--- NOTE | 2017-07-28 14:03 | Hospitalist Progress Note ---
Hospitalist Progress Note Date of Service July 28, 2017. Subjective Pt evaluation today including: conversation w/ patient, conversation w/ family , physical exam, lab review, review of studies, conversation w/ cyber security consultant (Gen Surg), review of inpatient medication list Patient seen and evaluated. No acute events overnight. Continues to feel better but continues to have copious amounts of purulent drainage. States he still isn't completely convinced on pursuing surgery but is entertaining the idea and looks forward to discussing with Dr. Monae. U/S guided IV access failed today in [place]. Has had 3 Hickmans in the past which needed removed due to septicemia. Plan is to not pursue that at this time. Will attempt PICC line access. Ultimately will need long-term Abx regardless of surgery vs conservative measures. BCx with NGTD x > 48 hours. Only complains of RLE redness and pain in the lower leg/marks Constitutional: No fever, No chills Respiratory: No cough, No shortness of breath Cardiovascular: No chest pain Abdomen: No pain, No nausea, No vomiting, No diarrhea, No constipation Musculoskeletal: + problem reported (RLE tenderness and redness) Male : No dysuria Medications Current Inpatient Medications Medications (Trade) Dose Ordered Sig/Chris Route Start Time Stop Time Status Last Admin Dose Admin Acetaminophen (Tylenol Tab) 1,000 mg Q8H PRN PO 07/26/17 12:00 08/25/17 11:59 07/28/17 09:35 1,000 MG Allopurinol (Zyloprim Tab) 300 mg QAM PO 07/27/17 09:00 08/26/17 08:59 07/28/17 09:30 300 MG Aspirin (Ecotrin Tab) 81 mg QAM PO 07/27/17 09:00 08/26/17 08:59 07/28/17 09:28 81 MG Atenolol (Tenormin Tab) 25 mg QAM PO 07/27/17 09:00 08/26/17 08:59 07/28/17 09:29 25 MG Finasteride (Proscar Tab) 5 mg QAM PO 07/27/17 09:00 08/26/17 08:59 07/28/17 09:28 5 MG HCTZ/Losartan Potassium (Hyzaar 50-12.5 Tab) 0.5 tab QAM PO 07/27/17 09:00 08/26/17 08:59 07/28/17 09:28 0.5 TAB Nortriptyline HCl (Pamelor Cap) 20 mg HS PO 07/26/17 21:00 08/25/17 20:59 07/27/17 21:23 20 MG Tamsulosin HCl (Flomax Cap) 0.4 mg BID PO 07/26/17 21:00 08/25/17 20:59 07/28/17 09:28 0.4 MG Ketoconazole (Nizoral 2% Crm) 1 appln BID EXT 07/26/17 21:00 08/25/17 20:59 07/27/17 08:10 1 APPLN Enoxaparin Sodium (Lovenox Inj) 40 mg Q24H SQ 07/26/17 14:00 08/25/17 13:59 07/27/17 14:05 40 MG Al Hydrox/Mg Hydrox/Simethicone (Maalox Max Susp) 15 ml Q4H PRN PO 07/26/17 12:00 08/25/17 11:59 Magnesium Hydroxide (Milk Of Magnesia Susp) 30 ml Q6H PRN PO 07/26/17 12:00 08/25/17 11:59 Polyethylene (Miralax Powder Packet) 17 gm DAILY PRN PO 07/26/17 12:00 08/25/17 11:59 Zolpidem Tartrate (Ambien Tab) 5 mg HSZ PRN PO 07/26/17 12:00 08/25/17 11:59 Ondansetron HCl (Zofran Inj) 4 mg Q6H PRN IV 07/26/17 12:00 08/25/17 11:59 Zolpidem Tartrate (Ambien Tab) 5 mg HSZ PRN PO 07/26/17 12:00 08/25/17 11:59 Ioversol (Optiray 320) 100 ml UD PRN IV 07/26/17 13:15 07/30/17 13:14 Vancomycin HCl 1750 mg/Sodium Chloride 535 ml @ 200 mls/hr Q10H IV 07/26/17 22:00 09/06/17 21:59 07/28/17 03:44 200 MLS/HR Miscellaneous Information (Consult) 1 ea UD PRN N/A 07/26/17 13:15 08/25/17 13:14 Fluconazole/ Sodium Chloride 200 mg/Prmx 100 ml @ 100 mls/hr DAILY@1200 IV 07/26/17 15:00 09/06/17 14:59 07/28/17 12:20 100 MLS/HR Metronidazole 500 mg/Prmx 100 ml @ 100 mls/hr Q8H IV 07/26/17 14:00 09/06/17 13:59 07/28/17 06:05 100 MLS/HR Lactobacillus Acidophilus (Floranex Tab) 4 tab TIDM PO 07/26/17 17:00 08/25/17 16:59 07/28/17 12:20 4 TAB Cefepime HCl 2000 mg/Syringe 20 ml @ 5 mls/min Q8H IV 07/26/17 14:00 09/06/17 13:59 07/28/17 05:48 5 MLS/MIN Objective Vital Signs Date Time Temp Pulse Resp B/P (MAP) Pulse Ox O2 Delivery O2 Flow Rate FiO2 07/28/17 09:34 103 188/94 (125) 07/28/17 08:00 Room Air 07/28/17 07:19 36.6 86 18 117/77 (90) 95 07/28/17 01:06 36.6 95 18 184/78 (113) 92 BiPAP 07/28/17 00:00 Room Air 07/27/17 16:00 Room Air 07/27/17 15:47 36.5 83 18 132/68 (89) 98 Room Air Physical Exam General Appearance: WD/WN, no apparent distress Eyes: sclerae normal ENT: hearing grossly normal Neck: supple, no JVD, trachea midline Respiratory/Chest: lungs clear, normal breath sounds, no respiratory distress, no accessory muscle use Cardiovascular: regular rate, rhythm, no gallop, no murmur Abdomen: normal bowel sounds, non tender, soft Extremities: + pertinent finding (chronic venous stasis changes with mild erythema around the inferior border/sock line of R ankle) Neurologic/Psychiatric: alert, oriented x 3 Laboratory Results Last 24 Hours Test 07/27/17 17:23 07/28/17 13:49 Vancomycin Level Trough 17.1 mcg/ml Assessment and Plan 67-year-old man with past medical history of gout, hypertension, dyslipidemia, BPH, obstructive sleep apnea and infected right hip prosthesis. Patient is on chronic suppression with antibiotics was sent from wound clinic with active hip infection at the surgical site. 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 Morrison's input - possible need for irrigation vac? - Orthopedics following - appreciate recommendations and possible referral to Dr. Monae -- Likely need for removal of hardware with spacer while finishing Abx with then new hardware - patient reporting he is considering but hasn't been completely sold on surgery at this point SOB: RESOLVED - CTA with no evidence of PE; No clear etiology HTN: STABLE - Atenolol 25 mg daily, Hyzaar 0.5 mg daily DVT Prophylaxis: Lovenox Disposition: - Possible need for surgery likely in a tertiary center; Possible Abx initiated and outpatient referral - D/C pending need for irrigation vac vs other intervention Continued [facility] stay due to: multiple IV medications needed Discharge planning: uncertain
--- NOTE | 2017-07-28 14:29 | Infectious Disease Progress Nt ---
Progress Note Date of Service July 28, 2017. Subjective Pt evaluation today including: conversation w/ patient, physical exam, chart review, lab review, review of studies, conversation w/ marine consultant, review of inpatient medication list Patient still with large amount of drainage from his hip. He deciding upon whether not to have further surgical intervention. Remains afebrile. Cultures with group B strep. All Other Systems: Reviewed and Negative Medications Current Inpatient Medications Medications (Trade) Dose Ordered Sig/Chris Route Start Time Stop Time Status Last Admin Dose Admin Acetaminophen (Tylenol Tab) 1,000 mg Q8H PRN PO 07/26/17 12:00 08/25/17 11:59 07/28/17 09:35 1,000 MG Allopurinol (Zyloprim Tab) 300 mg QAM PO 07/27/17 09:00 08/26/17 08:59 07/28/17 09:30 300 MG Aspirin (Ecotrin Tab) 81 mg QAM PO 07/27/17 09:00 08/26/17 08:59 07/28/17 09:28 81 MG Atenolol (Tenormin Tab) 25 mg QAM PO 07/27/17 09:00 08/26/17 08:59 07/28/17 09:29 25 MG Finasteride (Proscar Tab) 5 mg QAM PO 07/27/17 09:00 08/26/17 08:59 07/28/17 09:28 5 MG HCTZ/Losartan Potassium (Hyzaar 50-12.5 Tab) 0.5 tab QAM PO 07/27/17 09:00 08/26/17 08:59 07/28/17 09:28 0.5 TAB Nortriptyline HCl (Pamelor Cap) 20 mg HS PO 07/26/17 21:00 08/25/17 20:59 07/27/17 21:23 20 MG Tamsulosin HCl (Flomax Cap) 0.4 mg BID PO 07/26/17 21:00 08/25/17 20:59 07/28/17 09:28 0.4 MG Ketoconazole (Nizoral 2% Crm) 1 appln BID EXT 07/26/17 21:00 08/25/17 20:59 07/27/17 08:10 1 APPLN Enoxaparin Sodium (Lovenox Inj) 40 mg Q24H SQ 07/26/17 14:00 08/25/17 13:59 07/27/17 14:05 40 MG Al Hydrox/Mg Hydrox/Simethicone (Maalox Max Susp) 15 ml Q4H PRN PO 07/26/17 12:00 08/25/17 11:59 Magnesium Hydroxide (Milk Of Magnesia Susp) 30 ml Q6H PRN PO 07/26/17 12:00 08/25/17 11:59 Polyethylene (Miralax Powder Packet) 17 gm DAILY PRN PO 07/26/17 12:00 08/25/17 11:59 Zolpidem Tartrate (Ambien Tab) 5 mg HSZ PRN PO 07/26/17 12:00 08/25/17 11:59 Ondansetron HCl (Zofran Inj) 4 mg Q6H PRN IV 07/26/17 12:00 08/25/17 11:59 Zolpidem Tartrate (Ambien Tab) 5 mg HSZ PRN PO 07/26/17 12:00 08/25/17 11:59 Ioversol (Optiray 320) 100 ml UD PRN IV 07/26/17 13:15 07/30/17 13:14 Vancomycin HCl 1750 mg/Sodium Chloride 535 ml @ 200 mls/hr Q10H IV 07/26/17 22:00 09/06/17 21:59 07/28/17 03:44 200 MLS/HR Miscellaneous Information (Consult) 1 ea UD PRN N/A 07/26/17 13:15 08/25/17 13:14 Fluconazole/ Sodium Chloride 200 mg/Prmx 100 ml @ 100 mls/hr DAILY@1200 IV 07/26/17 15:00 09/06/17 14:59 07/28/17 12:20 100 MLS/HR Metronidazole 500 mg/Prmx 100 ml @ 100 mls/hr Q8H IV 07/26/17 14:00 09/06/17 13:59 07/28/17 13:43 100 MLS/HR Lactobacillus Acidophilus (Floranex Tab) 4 tab TIDM PO 07/26/17 17:00 08/25/17 16:59 07/28/17 12:20 4 TAB Cefepime HCl 2000 mg/Syringe 20 ml @ 5 mls/min Q8H IV 07/26/17 14:00 09/06/17 13:59 07/28/17 13:51 5 MLS/MIN Objective Vital Signs Date Time Temp Pulse Resp B/P (MAP) Pulse Ox O2 Delivery O2 Flow Rate FiO2 07/28/17 09:34 103 188/94 (125) 07/28/17 08:00 Room Air 07/28/17 07:19 36.6 86 18 117/77 (90) 95 07/28/17 01:06 36.6 95 18 184/78 (113) 92 BiPAP 07/28/17 00:00 Room Air 07/27/17 16:00 Room Air 07/27/17 15:47 36.5 83 18 132/68 (89) 98 Room Air Physical Exam General Appearance: WD/WN, no apparent distress, + obese Eyes: normal inspection, EOMI, sclerae normal ENT: normal ENT inspection, pharynx normal Neck: supple, no adenopathy, thyroid normal, trachea midline Respiratory/Chest: chest non-tender, lungs clear, normal breath sounds, no respiratory distress Cardiovascular: regular rate, rhythm, no gallop, no murmur Abdomen: normal bowel sounds, non tender, soft, no organomegaly Extremities: non-tender, no calf tenderness, normal capillary refill Neurologic/Psychiatric: alert, oriented x 3 Skin: normal color, no rash, + pertinent finding (Purulent drainage from right hip wound) Lymphatic: no adenopathy Laboratory Results RUN DATE: 07/28/17 [facility] LAB PAGE 1 RUN TIME: 827 Specimen Inquiry PATIENT: MERLYN AUSTIN LOC: [id number] U # : [id number] AGE/SX: 67/M ROOM: [facility] REG : 07/26/[address]: Claudio Terry D.O. : 1950 BED: 1 DIS : STATUS: ADM IN TLOC: SPEC #: [id number] CESIA: 07/26/17 STATUS: RES REQ #: [id number] RECD: 07/26/17 [facility] DR: Komal Leary MD SOURCE: INC.SITE ENTR: 07/26/17-124 [facility] DR: Janelle Ahumada, P.A. SPDESC: [place] MART Jennifer., D.O. Thomas, Peter W., D.O. ORDERED: [facility]F [facility] COMMENTS: Has Specimen Been Obtained/Collected? Y Procedure Result Verified Site GRAM STAIN Final 07/26/17-1425 RESULT RARE WBCs SEEN NO ORGANISMS SEEN SURFACE WOUND CULTURE Preliminary 07/28/17 Organism 1 GROUP B BETA STREP QUANITY FEW SENS SENSITIVITY TO FOLLOW Organism 2 CORYNEBACTERIUM SPECIES QUANITY FEW SENS NO SENSITIVITY TO FOLLOW Last 24 Hours Test 07/27/17 17:23 07/28/17 13:49 Vancomycin Level Trough 17.1 mcg/ml Assessment and Plan Chronically infected right SURJIT with worsening wound infection, cultures now growing group B Streptococcus. Pending decision regarding further surgical intervention, patient will be changed to IV ceftriaxone 2 g daily. Will follow.
[2017-07-28] MEDS: CEFTRIAXONE SOD INJ 2,000 MG in DEXTROSE 5% 50ML 50 ML IV SCH (15:36)
[2017-07-28 16:16] VITALS: BP 89/50; PULSE 75; TEMP 36.6; O2SAT 98
[2017-07-28] MEDS: NORTRIPTYLINE HCL 10 MG CAP PO SCH (21:16)
[2017-07-29] VITALS: O2SAT 98
[2017-07-29 00:21] VITALS: BP 165/93; PULSE 84; TEMP 36.4; O2SAT 96
[2017-07-29 07:01] LABS: HEMATOCRIT 40.8 % (42-52); HEMOGLOBIN 13.3 g/dL (14.0-18.0); MEAN CELL VOLUME 78.9 fL (80-100); MEAN CORPUSCULAR HEMOGLOBIN 25.7 pg (25-34); MEAN CORPUSCULAR HGB CONC 32.6 g/dl (32-36); MEAN PLATELET VOLUME 9.8 fL (7.4-10.4); PLATELET COUNT 279 K/uL (130-400); RED CELL DISTRIBUTION WIDTH CV 15.7 % (11.5-14.5); RED CELL DISTRIBUTION WIDTH SD 45.3 fL (36.4-46.3); WHITE BLOOD COUNT 9.23 K/uL (4.8-10.8)
[2017-07-29 07:21] VITALS: BP 139/84; PULSE 87; TEMP 36.7; O2SAT 97
[2017-07-29 07:32] LABS: CREATININE 0.94 mg/dl (0.60-1.40)
[2017-07-29] MEDS: ACETAMINOPHEN 500 MG TAB PO PRN (07:42)
[2017-07-29] MEDS: ASPIRIN 81 MG ECTAB PO SCH (07:42)
[2017-07-29] MEDS: ALLOPURINOL 300 MG TAB PO SCH (07:42)
[2017-07-29] MEDS: TAMSULOSIN HCL 0.4 MG CAP PO SCH (07:42)
[2017-07-29] MEDS: LACTOBACILLUS ACIDOPHILUS (FLORANEX) TAB PO SCH ×2 (07:42→13:00)
[2017-07-29] MEDS: LOSARTAN/HCTZ 50-12.5 EA TAB PO SCH (07:42)
[2017-07-29] MEDS: FINASTERIDE 5 MG TAB PO SCH (07:42)
[2017-07-29] MEDS: KETOCONAZOLE 2% CR 15 GM TUBE EXT SCH (07:43)
[2017-07-29 08:00] VITALS: O2SAT 97
--- NOTE | 2017-07-29 13:50 | Hospitalist Progress Note ---
Hospitalist Progress Note Date of Service July 29, 2017. Subjective Pt evaluation today including: conversation w/ patient, physical exam, review of inpatient medication list Patient seen and evaluated. No acute events overnight. Got PICC line access this AM. Plan for [facility]U daily Abx and was transitioned to Rocephin 2 g IV daily Duration is somewhat not determined as surgical intervention would dictate treatment. Some increased redness around inferior border of R ankle that is warm to touch and edematous. Will need monitoring. Constitutional: No fever, No chills Respiratory: No cough, No shortness of breath Cardiovascular: No chest pain Abdomen: No pain, No nausea, No vomiting, No diarrhea, No constipation Musculoskeletal: + problem reported (some pain in RLE at base of marks/ankle) Male : No dysuria Heme: No abnormal bleeding/bruising Medications Current Inpatient Medications Medications (Trade) Dose Ordered Sig/Chris Route Start Time Stop Time Status Last Admin Dose Admin Allopurinol (Zyloprim Tab) 300 mg QAM PO 07/27/17 09:00 08/26/17 08:59 07/29/17 07:42 300 MG Aspirin (Ecotrin Tab) 81 mg QAM PO 07/27/17 09:00 08/26/17 08:59 07/29/17 07:42 81 MG Atenolol (Tenormin Tab) 25 mg QAM PO 07/27/17 09:00 08/26/17 08:59 07/29/17 07:42 25 MG Finasteride (Proscar Tab) 5 mg QAM PO 07/27/17 09:00 08/26/17 08:59 07/29/17 07:42 5 MG HCTZ/Losartan Potassium (Hyzaar 50-12.5 Tab) 0.5 tab QAM PO 07/27/17 09:00 08/26/17 08:59 07/29/17 07:42 0.5 TAB Nortriptyline HCl (Pamelor Cap) 20 mg HS PO 07/26/17 21:00 08/25/17 20:59 07/28/17 21:16 20 MG Tamsulosin HCl (Flomax Cap) 0.4 mg BID PO 07/26/17 21:00 08/25/17 20:59 07/29/17 07:42 0.4 MG Ketoconazole (Nizoral 2% Crm) 1 appln BID EXT 07/26/17 21:00 08/25/17 20:59 07/29/17 07:43 1 APPLN Enoxaparin Sodium (Lovenox Inj) 40 mg Q24H SQ 07/26/17 14:00 08/25/17 13:59 07/27/17 14:05 40 MG Al Hydrox/Mg Hydrox/Simethicone (Maalox Max Susp) 15 ml Q4H PRN PO 07/26/17 12:00 08/25/17 11:59 Magnesium Hydroxide (Milk Of Magnesia Susp) 30 ml Q6H PRN PO 07/26/17 12:00 08/25/17 11:59 Polyethylene (Miralax Powder Packet) 17 gm DAILY PRN PO 07/26/17 12:00 08/25/17 11:59 Zolpidem Tartrate (Ambien Tab) 5 mg HSZ PRN PO 07/26/17 12:00 08/25/17 11:59 Ondansetron HCl (Zofran Inj) 4 mg Q6H PRN IV 07/26/17 12:00 08/25/17 11:59 Zolpidem Tartrate (Ambien Tab) 5 mg HSZ PRN PO 07/26/17 12:00 08/25/17 11:59 Ioversol (Optiray 320) 100 ml UD PRN IV 07/26/17 13:15 07/30/17 13:14 Lactobacillus Acidophilus (Floranex Tab) 4 tab TIDM PO 07/26/17 17:00 08/25/17 16:59 07/29/17 13:00 4 TAB Ceftriaxone Sodium 2000 mg/ Dextrose 70 ml @ 100 mls/hr Q24H IV 07/28/17 15:00 09/08/17 14:59 07/28/17 15:36 100 MLS/HR Acetaminophen (Tylenol Tab) 1,000 mg Q8H PRN PO 07/28/17 21:30 08/27/17 21:29 07/29/17 07:42 1,000 MG Objective Vital Signs Date Time Temp Pulse Resp B/P (MAP) Pulse Ox O2 Delivery O2 Flow Rate FiO2 07/29/17 08:00 97 Room Air 07/29/17 07:21 36.7 87 18 139/84 (102) 97 Room Air 07/29/17 00:21 36.4 84 20 165/93 (117) 96 Room Air 07/29/17 00:00 98 Room Air 07/28/17 16:16 36.6 75 18 89/50 (63) 98 Room Air 07/28/17 16:10 Room Air Physical Exam General Appearance: WD/WN, no apparent distress Eyes: sclerae normal ENT: hearing grossly normal Neck: supple, no JVD, trachea midline Respiratory/Chest: lungs clear, normal breath sounds, no respiratory distress, no accessory muscle use Cardiovascular: regular rate, rhythm, no gallop, no murmur Abdomen: normal bowel sounds, non tender, soft Extremities: + pertinent finding (chronic venous changes b/l shins with ring of erythema around inferior border of R aiken area; dressing applied to R hip ) Neurologic/Psychiatric: alert, oriented x 3 Laboratory Results Last 24 Hours Test 07/28/17 13:49 07/29/17 06:40 Vancomycin Level Trough 17.1 mcg/ml White Blood Count 9.23 K/uL Red Blood Count 5.17 M/uL Hemoglobin 13.3 g/dL Hematocrit 40.8 % Mean Corpuscular Volume 78.9 fL Mean Corpuscular Hemoglobin 25.7 pg Mean Corpuscular Hemoglobin Concent 32.6 g/dl RDW Standard Deviation 45.3 fL RDW Coefficient of Variation 15.7 % Platelet Count 279 K/uL Mean Platelet Volume 9.8 fL Creatinine 0.94 mg/dl Est Creatinine Clear Calc Drug Dose 120.0 ml/min Estimated GFR () 96.2 Estimated GFR (Non- 83.0 Assessment and Plan 67-year-old man with past medical history of gout, hypertension, dyslipidemia, BPH, obstructive sleep apnea and infected right hip prosthesis. Patient is on chronic suppression with antibiotics was sent from wound clinic with active hip infection at the surgical site. 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 Monae -- Likely need for removal of hardware with spacer while finishing Abx with then new hardware - patient reporting he is considering but hasn't been completely sold on surgery at this point SOB: RESOLVED - CTA with no evidence of PE; No clear etiology HTN: STABLE - Atenolol 25 mg daily, Hyzaar 0.5 mg daily DVT Prophylaxis: Lovenox Disposition: - Possible need for surgery likely in a tertiary center pending assessment by Dr. Monae - will be done outpatient - IV Abx at MTU until surgery decision - will need ID F/U - Possible D/C home tomorrow Continued [facility] stay due to: multiple IV medications needed Discharge planning: home
[2017-07-29] MEDS: ENOXAPARIN 40 MG/0.4 ML SYR SQ SCH (14:11)
[2017-07-29] MEDS: CEFTRIAXONE SOD INJ 2,000 MG in DEXTROSE 5% 50ML 50 ML IV SCH (14:11)
--- NOTE | 2017-07-29 15:37 | Medical Consult ---
Consultation Date of Consultation: July 29, 2017. Attending Physician: Cluadio Terry D.O. History of Present Illness 67 y/o male 3 weeks s/p removal of Marie cath for bacteremia related to infected SURJIT. We were asked to see him for new IV access. Past Medical/Surgical History Medical Problems: (1) Febrile illness Status: Acute (2) Neutropenia Status: Acute (3) Postoperative wound infection of right hip Status: Acute (4) Sepsis Status: Acute (5) Unspecified open wound, right hip, sequela Status: Acute Family History Heart Disease Hypertension Parkinson's Disease Social History Smoking Status: Never Smoker Drug Use: none Marital Status: Housing Status: lives with family Occupation Status: retired Allergies Coded Allergies: No Known Allergies (Unverified , 07/19/17) Current Inpatient Medications Current Inpatient Medications Medications (Trade) Dose Ordered Sig/Chris Route Start Time Stop Time Status Last Admin Dose Admin Allopurinol (Zyloprim Tab) 300 mg QAM PO 07/27/17 09:00 08/26/17 08:59 07/29/17 07:42 300 MG Aspirin (Ecotrin Tab) 81 mg QAM PO 07/27/17 09:00 08/26/17 08:59 07/29/17 07:42 81 MG Atenolol (Tenormin Tab) 25 mg QAM PO 07/27/17 09:00 08/26/17 08:59 07/29/17 07:42 25 MG Finasteride (Proscar Tab) 5 mg QAM PO 07/27/17 09:00 08/26/17 08:59 07/29/17 07:42 5 MG HCTZ/Losartan Potassium (Hyzaar 50-12.5 Tab) 0.5 tab QAM PO 07/27/17 09:00 08/26/17 08:59 07/29/17 07:42 0.5 TAB Nortriptyline HCl (Pamelor Cap) 20 mg HS PO 07/26/17 21:00 08/25/17 20:59 07/28/17 21:16 20 MG Tamsulosin HCl (Flomax Cap) 0.4 mg BID PO 07/26/17 21:00 08/25/17 20:59 07/29/17 07:42 0.4 MG Ketoconazole (Nizoral 2% Crm) 1 appln BID EXT 07/26/17 21:00 08/25/17 20:59 07/29/17 07:43 1 APPLN Enoxaparin Sodium (Lovenox Inj) 40 mg Q24H SQ 07/26/17 14:00 08/25/17 13:59 07/29/17 14:11 40 MG Al Hydrox/Mg Hydrox/Simethicone (Maalox Max Susp) 15 ml Q4H PRN PO 07/26/17 12:00 08/25/17 11:59 Magnesium Hydroxide (Milk Of Magnesia Susp) 30 ml Q6H PRN PO 07/26/17 12:00 08/25/17 11:59 Polyethylene (Miralax Powder Packet) 17 gm DAILY PRN PO 07/26/17 12:00 08/25/17 11:59 Zolpidem Tartrate (Ambien Tab) 5 mg HSZ PRN PO 07/26/17 12:00 08/25/17 11:59 Ondansetron HCl (Zofran Inj) 4 mg Q6H PRN IV 07/26/17 12:00 08/25/17 11:59 Zolpidem Tartrate (Ambien Tab) 5 mg HSZ PRN PO 07/26/17 12:00 08/25/17 11:59 Ioversol (Optiray 320) 100 ml UD PRN IV 07/26/17 13:15 07/30/17 13:14 Lactobacillus Acidophilus (Floranex Tab) 4 tab TIDM PO 07/26/17 17:00 08/25/17 16:59 07/29/17 13:00 4 TAB Ceftriaxone Sodium 2000 mg/ Dextrose 70 ml @ 100 mls/hr Q24H IV 07/28/17 15:00 09/08/17 14:59 07/29/17 14:11 100 MLS/HR Acetaminophen (Tylenol Tab) 1,000 mg Q8H PRN PO 07/28/17 21:30 08/27/17 21:29 07/29/17 07:42 1,000 MG Physical Exam Date Time Temp Pulse Resp B/P (MAP) Pulse Ox O2 Delivery O2 Flow Rate FiO2 07/29/17 08:00 97 Room Air 07/29/17 07:21 36.7 87 18 139/84 (102) 97 Room Air 07/29/17 00:21 36.4 84 20 165/93 (117) 96 Room Air 07/29/17 00:00 98 Room Air 07/28/17 16:16 36.6 75 18 89/50 (63) 98 Room Air 07/28/17 16:10 Room Air General Appearance: WD/WN, no apparent distress Extremities/Musculoskelatal: + pertinent finding (wound vac right hip, has PICC ) Laboratory Results Last 24 Hours Test 07/29/17 06:40 White Blood Count 9.23 K/uL Red Blood Count 5.17 M/uL Hemoglobin 13.3 g/dL Hematocrit 40.8 % Mean Corpuscular Volume 78.9 fL Mean Corpuscular Hemoglobin 25.7 pg Mean Corpuscular Hemoglobin Concent 32.6 g/dl RDW Standard Deviation 45.3 fL RDW Coefficient of Variation 15.7 % Platelet Count 279 K/uL Mean Platelet Volume 9.8 fL Creatinine 0.94 mg/dl Est Creatinine Clear Calc Drug Dose 120.0 ml/min Estimated GFR () 96.2 Estimated GFR (Non- 83.0 Assessment & Plan Infected right SURJIT Seen by Dr. Montalvo this morning, sutures removed from right chest wound. Would not recommend A-port or Marie given recurrent line infections. PICC has been placed.
[2017-07-29] MEDS ORDERED: CEFT1INJ26 IV (15:43)
--- NOTE | 2017-07-29 16:00 | Discharge Instructions ---
Discharge Instructions Date of Service July 29, 2017. Admission Reason for Admission: Wound Cellulitis (Not Open) Discharge Discharge Diagnosis / Problem: Wound Cellulitis Discharge Goals Goal(s): Decrease discomfort, Improve function, Increase independence Activity Recommendations Activity Limitations: resume your previous activity . Instructions / Follow-Up Instructions / Follow-Up Chronic Right Hip Infection: - You were seen by infectious disease and will need to continue Rocephin 2 g IV in the MTU daily and this may be for several weeks. This may need to be re- evaluated and extended based on how to your wound appears and pending if you do go through with surgery - You will need to follow-up with Dr. Monae from [facility] to get another opinion and discuss options - If you do elect against surgery you may need suppressive antibiotics group home and will need repeat imaging to monitor for any changes - A prescription was sent to the MTU to get this started. They will also keep an eye on your PICC to make sure it can be used - Please keep this line clean and dry. You can shower with it but it will need to stay dressed and protected. Dressing changes need to be done by sterile technique (meaning close attention to keeping the area clean and using specially packed products) - Recommend to continue your appointments with the wound center and infectious disease can see you at those appointments as well. Our pillowcase sewer will make sure this is all set up for you. - The appointment for antibiotics tomorrow is at the MTU at 0845. Home Medications: - Continue your home medications as previously prescribed we did not make adjustments to these other than stopping previous antibiotics in favor of Rocephin Current Hospital Diet Patient's current hospital diet: Regular Diet Discharge Diet Recommended Diet: Regular Diet Pending Studies Studies pending at discharge: no Laboratory Results Hemoglobin A1c Test 07/27/17 06:09 Range/Units Estimated Average Glucose 128 mg/dl Hemoglobin A1c 6.1 H 4.5-5.6 % Medical Emergencies . Who to Call and When: Medical Emergencies: If at any time you feel your situation is an emergency, please call 911 immediately. . Non-Emergent Contact Non-Emergency issues call your: Primary Care Provider Call Non-Emergent contact if: you have a fever, your pain is concerning you, you have any medication questions . . "Provider Documentation" section prepared by Medina Knox. .
--- NOTE | 2017-07-29 16:28 | Discharge Summary ---
Discharge Summary Date of Service July 29, 2017. Discharge Summary Admission Date: Jul 26, 2017 at 11:55 Discharge Date: July 29, 2017 Discharge Disposition: Home with services Principal Diagnosis: Acute on Chronic Cellulitis of R Hip Problems/Secondary Diagnoses: Medical Problems: (1) Bacteremia (2) Febrile illness (3) Infected prosthetic hip (4) Knee pain (5) Neutropenia (6) Positive blood culture (7) Post op infection (8) Postoperative wound infection of right hip (9) Right Hip Wound Drainage (10) Sepsis (11) Unspecified open wound, right hip, sequela Surgical Problems: (1) Post-operative state (2) Post-operative state Immunizations: Have You Had Influenza Vaccine: Yes History of Tetanus Vaccine?: No History of Pneumococcal: No History of Hepatitis B Vaccine: No Procedures: ULTRASOUND BILATERAL LOWER EXTREMITY VENOUS FINDINGS: There is no sonographic evidence of deep venous thrombosis identified in the right or left lower extremity. The common femoral, superficial femoral, and popliteal veins are patent and normally compressible bilaterally. The greater saphenous vein and the profunda femoris vein at the junction with the common femoral vein are clear in both legs. The visualized calf veins are patent bilaterally. IMPRESSION: There is no sonographic evidence of deep venous thrombosis identified in the right or left lower extremity. (CHEST FOR PE) ANGIO WITH FINDINGS: Special Tax Auditor topogram: Cardiomegaly. Pulmonary vasculature: The study is suboptimal for the assessment of the pulmonary vascular tree secondary to timing of the contrast bolus, body habitus, and respiratory motion artifact. Allowing for limited image quality, no central filling defect to suggest pulmonary embolus. Main pulmonary artery is not enlarged. No flattening of the interventricular septum. No intracardiac filling defect. No reflux of contrast into the hepatic veins. Remaining chest: On soft tissue windows, normal thyroid and thoracic inlet. Right gynecomastia. Sternalis muscles noted. No axillary, supraclavicular, hilar, or mediastinal lymphadenopathy. Normal aorta. Multichamber enlargement of the heart. Coronary artery calcification. No pericardial or pleural effusion. Hepatic steatosis. Cholecystectomy clips. On lung windows, minimal dependent changes likely atelectasis. Mosaic attenuation suggest small airways disease. No other focal nodule or infiltrate. Airways patent. On bone windows, degenerative changes of the spine. IMPRESSION: 1. Allowing for suboptimal image quality, no evidence of pulmonary embolus. 2. Mosaic attenuation suggest small airways disease. 3. Hepatic steatosis. R PELVIS/UNILATERAL HIP 2-3VIEWS DISCUSSION: Total right hip arthroplasty good position. Good contact between prosthetic and underlying bone. Heterotopic bone formation lateral to the greater trochanter. No evidence for acetabular protrusion. Lungs and prosthetic apparently involving the lower femur. There is no evidence for soft tissue swelling. IMPRESSION: Degenerative and postoperative change. No acute process. Consultations: 1. Infectious Disease 2. Orthopedics 3. General Surgery 4. Wound Care Medication Reconciliation New Medications: Ceftriaxone Sodium (Rocephin) 1 Gm Inj 2 GM IV DAILY for 30 Days Continued Medications: Acetaminophen (Tylenol) 500 Mg Tab 1000 MG PO DIRECTED, TAB Allopurinol (Zyloprim) 300 Mg Tab 300 MG PO QAM, TAB Aspirin (Aspirin 81) 81 Mg Tab 1 TAB PO QAM Atenolol (Tenormin) 25 Mg Tab 25 MG PO QAM, TAB Cholecalciferol (Vitamin D3) 2,000 Unit Cap 2000 UNIT PO QAM Kdpiosjutkmu-Lyyhnodibbhog-Iwh (Dermacinrx Therazole Haroon 1-0.05 & 20 %) 1 Haroon Haroon 1 APPLN TOP BID Cyanocobalamin (B-12) 1,000 Mcg Cap 1000 MCG PO QAM Finasteride (Proscar) 5 Mg Tab 5 MG PO QAM, TAB Hctz/Losartan (Hyzaar 12.5MG/50MG) 1 Ea Tab 0.5 TAB PO QAM, TAB Ketoconazole (Topical) (Extina) 2 % Aer 1 APPLN TOP BID Nortriptyline (Pamelor) 10 Mg Cap 20 MG PO HS, CAP Tamsulosin HCl (Tamsulosin HCl) 0.4 Mg Cap 0.4 MG PO BID Testosterone (Androderm) 4 Mg/24 Hr Dis DAILY Discontinued Medications: Doxycycline (Monohydrate) (Doxycycline) 100 Mg Cap 100 MG PO BIDM for 30 Days, #1 BTL 6 Refills Fluconazole (Fluconazole) 100 Mg Tab 200 MG PO HS, #4 TAB 0 Refills Discharge Exam ROS Constitutional: No fever, No chills Respiratory: No cough, No shortness of breath Cardiovascular: No chest pain Abdomen: No pain, No nausea, No vomiting, No diarrhea, No constipation Musculoskeletal: + problem reported (some pain in RLE at base of marks/ankle) Male : No dysuria Heme: No abnormal bleeding/bruising Physical Exam General Appearance: WD/WN, no apparent distress Eyes: sclerae normal ENT: hearing grossly normal Neck: supple, no JVD, trachea midline Respiratory/Chest: lungs clear, normal breath sounds, no respiratory distress, no accessory muscle use Cardiovascular: regular rate, rhythm, no gallop, no murmur Abdomen: normal bowel sounds, non tender, soft Extremities: + pertinent finding (chronic venous changes b/l shins with ring of erythema around inferior border of R aiken area; dressing applied to R hip ) Neurologic/Psychiatric: alert, oriented x 3 Hospital Course ADMISSION: 67-year-old man with past medical history of gout, hypertension, dyslipidemia, BPH, obstructive sleep apnea and history of retained infected right hip prosthesis. Patient is on chronic suppression with antibiotics, used to be on IV antibiotics but developed septicemia and had to remove the retained venous access. Was switched to oral antibiotics and followed by Dr. Love. Based on our list he was on doxycycline/fluconazole. Last admission I believe he was also started on levofloxacin. Patient is slightly poor historian and unsure of what exactly antibiotics he was taking at home. He was found today to have increased purulent discharge. Patient stated that for the last few days he has been having chills, fatigue and shortness of breath. Patient was found to have an infected inflamed wound in the wound clinic. Patient was sent for IV antibiotics and cultures. 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 Monae ([facility]) -- Likely need for removal of hardware with spacer while finishing Abx with then new hardware - patient reporting he is considering but hasn't been completely sold on surgery at this point Disposition: - Possible need for surgery likely in a tertiary center pending assessment by Dr. Monae and patient consent for surgical intervention - IV Abx at MTU until surgery decision - will need ID F/U Total Time Spent: Greater than 30 minutes This includes examination of the patient, discharge planning, medication reconciliation, and communication with other providers. Discharge Instructions Please refer to the electronic Patient Visit Report (Discharge Instructions) for additional information. Additional Copies To Janelle Ahumada P.A.
[2017-07-29 17:07] VITALS: BP 139/84; PULSE 87; TEMP 36.7; O2SAT 97
[2017-07-30] MEDS ORDERED: DOXY100C76 PO (11:15)
[2017-08-02] MEDS ORDERED: daptomycin PO (08:09)
--- NOTE | 2017-08-03 13:01 | Wound Progress Note: Inpatient ---
Wound Progress Note Date of Service July 29, 2017. Subjective Pt evaluation today including: conversation w/ patient, physical exam, chart review Patient is seen today for routine follow-up of a postop surgical wound with associated cellulitis to the right lower extremity. Patient denies any significant pain redness or swelling the area. Patient denies any fever chills or night sweats. Patient states the discomfort that was there has improved. Patient denies any other systemic complaints. Objective Physical Exam Notes: Patient's vital signs were reviewed and found to be unremarkable patient is afebrile. Patient is currently lying in hospital bed in no acute distress. Patient is alert and cooperative throughout the examination. The wound site today measures 7.7 x 3 x 5.5 cm. There is no central slough or eschar formation noted. The surrounding erythema and tenderness has really reduced significantly in size since admission. No active drainage or odor is present. Assessment and Plan Assessment: Postop surgical wound right lower extremity with associated resolving cellulitis Plan: No debridement is indicated today. The site will be dressed with Aquacel Ag and gauze patient will be followed up in the outpatient wound clinic for resumption of VAC therapy. Patient will also receive outpatient intravenous antibiotic therapy.
== END 2017-07-29 18:05 | disposition home or self-care (01) | DRG 560 ==
LOC: UNDOADMIN 10:34 → C.MS2W 10:34 → C.4E 07-28 21:57
PROVIDERS: ADMIT Internal Medicine; ATTEND Internal Medicine
PROC: 02HV33Z Insertion of Infusion Device into Superior Vena Cava, Percutaneous Approach (ICD-10-PCS; principal; 2017-07-29)
DX: T84.51XA Infection and inflammatory reaction due to internal right hip prosthesis, initial encounter (principal); L03.115 Cellulitis of right lower limb; E46 Unspecified protein-calorie malnutrition; Z68.43 Body mass index [BMI] 50.0-59.9, adult; E66.01 Morbid (severe) obesity due to excess calories; M1A.9XX0 Chronic gout, unspecified, without tophus (tophi); I10 Essential (primary) hypertension; N40.0 Benign prostatic hyperplasia without lower urinary tract symptoms; E78.5 Hyperlipidemia, unspecified; G47.33 Obstructive sleep apnea (adult) (pediatric); Z79.2 Long term (current) use of antibiotics; Y79.2 Prosthetic and other implants, materials and accessory orthopedic devices associated with adverse incidents; Y92.009 Unspecified place in unspecified non-institutional (private) residence as the place of occurrence of the external cause; B95.1 Streptococcus, group B, as the cause of diseases classified elsewhere; Z96.641 Presence of right artificial hip joint; E29.1 Testicular hypofunction; R06.02 Shortness of breath

== ENCOUNTER 2019-07-19 09:42 | Observation (INO) ==
[2019-07-19] MEDS ORDERED: fentaNYL citrate 100 MCG/2 ML VIAL IV STA (09:51)
--- NOTE | 2019-07-19 09:59 | Emergency Department Note ---
Impression & Plan Chest pain, A-fib, Hypertension ED Provider Note NAME: MERLYN AUSTIN AGE: 69 SEX: M : 1950 ARRIVES VIA: Ambulance INFORMANT: Patient ED PROVIDER(S): Abelino Villarreal DO CHIEF COMPLAINT: Chest pain HPI: Patient is a 69-year-old male who presents the ER for midsternal chest pain which started around 830 this morning. He describes it as a heaviness. Radiate s throughout his entire chest. There is no arm or jaw pain. He denies any shortness of breath. He does admit to a past medical history of diabetes. He denies smoking, heart disease, hypertension and hyperlipidemia. He notes that over the past several years he has been having chest pain and shortness of breath with exertion which has been gradually getting worse. This morning he did take Viagra. He also took aspirin-6 baby tabs. Left calf is always larger than right. No other exacerbating or remitting factors. ROS: See above HPI for pertinent positives & negatives. A total of 10 systems reviewed and were otherwise negative. PAST MEDICAL HISTORY:See Below PAST SURGICAL HISTORY:See Below FAMILY HISTORY:See Below SOCIAL HISTORY:See Below HOME MEDICATIONS:See Below ALLERGIES:See Below VITALS:See Below PHYSICAL EXAMINATION: GENERAL: Sitting up in bed, alert, obese, nontoxic EYE EXAM: normal conjunctiva. OROPHARYNX: no exudate, no erythema, lips, buccal mucosa, and tongue normal and mucous membranes are moist NECK: supple, no nuchal rigidity, no adenopathy, non-tender LUNGS: Clear to auscultation. Normal chest wall mechanics HEART: no murmurs, S1 normal and S2 normal ABDOMEN: abdomen soft, non-tender, normo-active bowel sounds, no masses, no rebound or guarding. SKIN: no rashes and no bruising UPPER EXTREMITIES: upper extremities are grossly normal. LOWER EXTREMITIES: Mild edema in left calf. Left calf slightly larger than right NEURO EXAM: Normal sensorium, cranial nerves II-XII grossly intact, normal speech, no gross weakness of arms, no gross weakness of legs. MEDICAL DECISION MAKING: Patient is a 69-year-old male who presents the ER for midsternal chest pain which started around 830 this morning. He has exertional symptoms which have been going on for years and gradually worsening. He is obese has a history of diabetes and denies hyperlipidemia but upon review of his chart this does appear to be previously diagnosed. IV was established blood work was obtained. He was brought in by EMS. EKG initially showed ST wave changes in the inferior leads although I questioned beat variability but on repeat EKG this did improve. He does appear to be in a new A. fib. He was given morphine and not nitro due to his Viagra. He had previously taken aspirin. Chest x-ray was unremarkable. Labs show no significant leukocytosis or anemia. BMP was unremarkable. Troponin was negative. INR was unremarkable. Patient was updated at bedside. Discussed with the hospitalist for admission. He was also given a dose of Lopressor as his heart rate was trending from the low 100s to high 120s and blood pressures were elevated in the 170s. Triage Nursing notes reviewed. Prior medical records reviewed Vital Signs: reviewed and remarkable for hypertension. Differential diagnosis: Differential diagnoses includes but is not limited to acute coronary syndrome, myocardial infarction, pericarditis, pulmonary embolus, aortic dissection, pneumonia, pneumothorax, musculoskeletal, shingles, esophageal. ER treatment provided: See below Diagnostics interpreted by me: ECG: EKG#1: A. fib rate of 90 normal axis T WI in lead III ST wave changes in the inferior leads Poor baseline Inferior Q waves No PVCs Normal QTC EKG#2 A. fib rate of 92 Normal axis Inferior Q waves No PVCs Normal QTC Cardiac Monitoring: An order was placed for continuous cardiac monitoring. The monitor shows a rate of 93 with A. fib rhythm. Laboratory studies: As stated above and show below. Imaging studies: Portable AP upright one view shows no focal infiltrate or pneumothorax Consultation(s): Discussed with Dr. Anton Farris ED COURSE: Procedures: none Critical Care: None Past Med/Surg History Medical History (Updated 07/19/19 @ 12:21 by Abelino Villarreal DO) Acquired buried penis (Chronic) Alopecia (Chronic) Anxiety (Chronic) Arm pain (Chronic) Atypical nevi (Chronic) Bacteremia (Chronic) BPH (benign prostatic hyperplasia) (Chronic) Chronic pain (Chronic) Chronic venous insufficiency (Chronic) Cor pulmonale (chronic) (Chronic) Decreased testosterone level (Chronic) Degenerative joint disease involving multiple joints on both sides of body (Chronic) Dehiscence of wound (Chronic) Erectile dysfunction (Chronic) Gastroesophageal reflux disease (Chronic) Gout (Chronic) Hypertension (Chronic) Hypotension (Chronic) 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) Knee pain (Chronic) Leg edema (Chronic) Morbid obesity (Chronic) Nocturia (Chronic) Obstructive sleep apnea (Chronic) Open wound of right hip (Acute) Positive blood culture (Chronic) Post op infection (Chronic) Right shoulder pain (Chronic) Tachycardia (Chronic) Tinea pedis (Chronic) Type 2 diabetes mellitus (Chronic) Vitamin D deficiency (Chronic) Surgical History H/O hernia repair (Resolved) 2015 H/O inguinal hernia repair 2016 H/O knee surgery x4 History of bladder surgery History of hip surgery 04/2016 and 05/2016 Hx of cholecystectomy S/P tonsillectomy S/P total knee arthroplasty b/l, then b/l revisions Family History (Updated 07/18/19 @ 12:50 by Crystal George MA) Mother FH: Parkinson's disease Breast cancer Father Coronary heart disease Hypertension Cardiac disease Melanoma Skin cancer Unknown Melanoma Denies family history of Ovarian cancer Prostate cancer Myocardial infarction Social History Preferred Language: Lao Visual Impairment: Limited Hearing Ability: Normal 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 marital status: Current Living Situation: Spouse current occupational status: retired Feels Safe at Home: Yes Smoking Status: Never smoker Hx Alcohol Use: No Hx Substance Use: No caffeine: Yes Dental Care, Regularly: Yes Physical Activity Frequency: Does not Exercise Seatbelt Use: always Sunscreen Use: Yes Allergies Allergies Allergy/AdvReac Type Severity Reaction Status Date / Time No Known Drug Allergies Allergy Verified 07/19/19 10:40 Home Meds Home Medications Medication Instructions Recorded Confirmed cholecalciferol (vitamin D3) 2,000 unit PO QAM 03/03/18 07/19/19 [Vitamin D3] loratadine 10 mg PO DAILY 03/03/18 07/19/19 acetaminophen 500 mg capsule 500 mg PO TID cap 11/04/18 07/19/19 aspirin 81 mg tablet,delayed 81 mg PO QAM tab 11/04/18 07/19/19 release atenolol 50 mg tablet 50 mg PO QAM tab 11/04/18 07/19/19 clotrimazole-betamethasone 1 1 appln TOP BID gm 11/04/18 07/19/19 %-0.05 % topical cream lancets 33 gauge #100 ea 11/04/18 05/19/19 sildenafil (pulm.hypertension) 20 20 - 100 mg PO DAILY PRN tab 11/04/18 07/19/19 mg tablet blood sugar diagnostic #10 ea 11/08/18 05/16/19 allopurinol [Zyloprim] 300 mg PO QAM 07/19/19 07/19/19 atorvastatin [Lipitor] 10 mg PO QAM 07/19/19 07/19/19 azelastine 2 spray INTRANASAL DAILY PRN 07/19/19 07/19/19 bupropion HCl [Wellbutrin SR] 100 mg PO BIDM 07/19/19 07/19/19 furosemide 20 mg PO DAILY PRN 07/19/19 07/19/19 losartan-hydrochlorothiazide 1 tab PO QAM 07/19/19 07/19/19 [Hyzaar] metformin [Glucophage XR] 1,000 mg PO BIDM 07/19/19 07/19/19 nortriptyline 20 - 30 mg PO HS 07/19/19 07/19/19 tadalafil [Cialis] 5 mg PO HS 07/19/19 07/19/19 Previous Rx's Medication Instructions Recorded compress.stocking,knee,reg,med #2 ea 11/11/18 amoxicillin 875 mg-potassium 1 tab PO BID #60 tab 05/09/19 clavulanate 125 mg tablet tamsulosin 0.4 mg capsule 0.4 mg PO BID #180 cap 05/22/19 testosterone 3 pump TD DAILY 30 Days #60 gm 07/18/19 Results & Data (ED) Vital Signs Vital Signs - 24 hr 07/19/19 09:45 07/19/19 10:00 07/19/19 10:30 Temperature 36.7 C Temperature Source Oral Pulse Rate 93 H 86 94 H Pulse Rate from SpO2 Sensor 91 H 99 H Pulse Rhythm Regular Pulse Strength Normal Respiratory Rate 20 21 20 Respiratory Effort / Characteristics Non-Labored Spontaneous Respiratory Depth Normal Respiratory Pattern Regular Blood Pressure 173/95 H Blood Pressure Mean 121 Blood Pressure Position Sitting Pulse Oximetry 95 96 95 Oxygen Delivery Method Room Air Sepsis Recent Fever Within 48 Hours No Sepsis New/Unexplained Change in Mental Status No Sepsis Action Taken by Nursing No Action Required 07/19/19 10:51 07/19/19 11:01 07/19/19 11:10 Temperature Temperature Source Pulse Rate 90 103 H 91 H Pulse Rate from SpO2 Sensor 92 H 104 H Pulse Rhythm Pulse Strength Respiratory Rate 20 24 Respiratory Effort / Characteristics Respiratory Depth Respiratory Pattern Blood Pressure 166/89 H 153/93 H 153/93 H Blood Pressure Mean 107 113 Blood Pressure Position Pulse Oximetry 91 94 Oxygen Delivery Method Room Air Room Air Sepsis Recent Fever Within 48 Hours Sepsis New/Unexplained Change in Mental Status Sepsis Action Taken by Nursing 07/19/19 11:30 07/19/19 12:00 Temperature Temperature Source Pulse Rate 99 H 87 Pulse Rate from SpO2 Sensor 98 H 90 Pulse Rhythm Pulse Strength Respiratory Rate 23 18 Respiratory Effort / Characteristics Respiratory Depth Respiratory Pattern Blood Pressure 157/93 H 142/99 H Blood Pressure Mean 108 125 Blood Pressure Position Pulse Oximetry 94 92 Oxygen Delivery Method Sepsis Recent Fever Within 48 Hours Sepsis New/Unexplained Change in Mental Status Sepsis Action Taken by Nursing Laboratory Data Result diagrams: 07/19/19 09:55 07/19/19 09:55 Lab Results 07/19/19 07/19/19 07/19/19 Range/Units 09:55 09:55 09:55 WBC 8.42 (4.8-10.8) K/uL RBC 5.60 (4.7-6.1) M/uL Hgb 12.9 L (14.0-18.0) g/dL Hct 41.8 L (42-52) % MCV 74.6 L (80-100) fL MCH 23.0 L (25-34) pg MCHC 30.9 L (32-36) g/dL RDW Std Deviation 50.4 H (36.4-46.3) fL RDW Coeff of Rich 18.6 H (11.5-14.5) % Plt Count 374 (130-400) K/uL MPV 9.2 (7.4-10.4) fL Immature Gran % (Auto) 0.4 % Neut % (Auto) 68.0 % Lymph % (Auto) 20.3 % [place] % (Auto) 8.7 % Eos % (Auto) 2.0 % Baso % (Auto) 0.6 % Immature Gran # (Auto) 0.03 H (0.00-0.02) K/uL Neut # (Auto) 5.73 (1.4-6.5) K/uL Lymph # (Auto) 1.71 (1.2-3.4) K/uL [place] # (Auto) 0.73 H (0.11-0.59) K/uL Eos # (Auto) 0.17 (0-0.5) K/uL Baso # (Auto) 0.05 (0-0.2) K/uL RBC Morphology Unremarkable PT 11.9 (9.0-12.0) Seconds INR 1.1 (0.9-1.1) APTT 30.6 (21.0-31.0) Seconds PTT Ratio 1.1 Sodium 134 L (136-145) mmol/L Potassium 3.7 (3.5-5.1) mmol/L Chloride 104 (98-107) mmol/L Carbon Dioxide 26 (21-32) mmol/L Anion Gap 4.0 (3-11) BUN 12 (7-18) mg/dl Creatinine 0.91 (0.6-1.4) mg/dl Est Cr Clr Drug Dosing 119.6 ml/min Est GFR ( Amer) 98.6 Est GFR (Non-Af Amer) 85.1 BUN/Creatinine Ratio 13.2 (10-20) Glucose 136 H (70-99) mg/dl Calcium 8.7 (8.5-10.1) mg/dl Total Bilirubin 0.9 (0.2-1) mg/dl AST 25 (15-37) U/L ALT 22 (12-78) U/L Alkaline Phosphatase 72 (45-117) U/L Troponin I < 0.015 (0-0.045) ng/ml Total Protein 7.9 (6.4-8.2) gm/dl Albumin 3.2 L (3.4-5.0) gm/dl Globulin 4.7 H (2.5-4.0) gm/dl Albumin/Globulin Ratio 0.7 L (0.9-2) Lipase 61 L (73-393) U/L Specimen Hemolysis Administered Medications Discontinued Medications Fentanyl Citrate (Fentanyl Citrate) 50 mcg IV NOW STA Stop: 07/19/19 09:52 Last Admin: 07/19/19 10:02 Dose: 50 mcg Documented by: [id number] Sodium Chloride (Nss) 500 mls @ 999 mls/hr IV .Q31M JESSIE Stop: 07/19/19 10:30 Last Infusion: 07/19/19 10:30 Dose: 0 mls/hr Documented by: [id number] Infusion: 07/19/19 10:29 Dose: 0 mls/hr Documented by: [id number] Admin: 07/19/19 10:02 Dose: 999 mls/hr Documented by: [id number] Metoprolol Tartrate (Lopressor) 2.5 mg IV NOW STA Stop: 07/19/19 11:00 Last Admin: 07/19/19 11:10 Dose: 2.5 mg Documented by: [id number] Discharge Plan Visit Data Chief Complaint: Chest Pain ED Provider: Abelino Villarreal Discharge Problem: Chest pain, A-fib, Hypertension Forms Stand Alone Forms: [facility] Prescriptions Prescriptions: No Action acetaminophen 500 mg capsule 500 mg PO TID RF: 0 clotrimazole-betamethasone 1-0.05 % cream 1 appln TOP BID RF: 0 tamsulosin 0.4 mg capsule 0.4 mg PO BID Qty: 180 RF: 3 testosterone 10 mg/0.5 gram /actuation gel in metered-dose pump 3 pump TD DAILY 30 Days Qty: 60 RF: 5 aspirin 81 mg tablet,delayed release (DR/EC) 81 mg PO QAM RF: 0 (DME) lancets [OneTouch Delica Lancets] 33 gauge misc See Dose Instructions .ROUTE .MEDSUPPLY Qty: 100 RF: 0 sildenafil (pulm.hypertension) 20 mg tablet 20 - 100 mg PO DAILY PRN (Reason: sexual activity) RF: 0 (DME) OneTouch Verio strip See Dose Instructions .ROUTE .MEDSUPPLY Qty: 10 RF: 0 (DME) Relief Knee-High Stocking misc See Dose Instructions .ROUTE .MEDSUPPLY Qty: 2 RF: 0 amoxicillin-pot clavulanate [Augmentin] 875-125 mg tablet 1 tab PO BID Qty: 60 RF: 6 loratadine 10 mg Tablet 10 mg PO DAILY RF: 0 cholecalciferol (vitamin D3) [Vitamin D3] 2,000 unit Capsule 2,000 unit PO QAM RF: 0 atenolol [Tenormin] 50 mg tablet 50 mg PO QAM RF: 0 azelastine 0.15 % (205.5 mcg) [place],Non-Aerosol 2 spray INTRANASAL DAILY PRN (Reason: PRN) RF: 0 atorvastatin [Lipitor] 10 mg tablet 10 mg PO QAM RF: 0 bupropion HCl [Wellbutrin SR] 100 mg tablet sustained-release 12 hr 100 mg PO BIDM RF: 0 nortriptyline 10 mg capsule 20 - 30 mg PO HS RF: 0 allopurinol [Zyloprim] 300 mg tablet 300 mg PO QAM RF: 0 furosemide 20 mg tablet 20 mg PO DAILY PRN (Reason: Fluid Retention) RF: 0 losartan-hydrochlorothiazide [Hyzaar] 50-12.5 mg tablet 1 tab PO QAM RF: 0 metformin [Glucophage XR] 500 mg tablet extended release 24 hr 1,000 mg PO BIDM RF: 0 tadalafil [Cialis] 5 mg Tablet 5 mg PO HS RF: 0 Discharge Problem: Chest pain Qualifiers: Chest pain type: unspecified Qualified Code(s): R07.9 - Chest pain, unspecified A-fib Qualifiers: Atrial fibrillation type: unspecified Qualified Code(s): I48.91 - Unspecified atrial fibrillation Hypertension Qualifiers: Hypertension type: unspecified Qualified Code(s): I10 - Essential (primary) hy pertension
[2019-07-19] MEDS ORDERED: SODIUM CHLORIDE 0.9% 500 ML IV SCH (10:00)
[2019-07-19 10:05] LABS: Basophils # (auto) 0.05 K/uL (0-0.2); Basophils % (auto) 0.6 %; Eosinophils # (auto) 0.17 K/uL (0-0.5); Hematocrit (blood only) 41.8 % (42-52); Hemoglobin 12.9 g/dL (14.0-18.0); Immature Granulocytes # (auto) 0.03 K/uL (0.00-0.02); Immature Granulocytes % (auto) 0.4 %; Lymphocytes # (auto) 1.71 K/uL (1.2-3.4); Lymphocytes % (auto) 20.3 %; Mean Corpuscular Hgb Conc 30.9 g/dL (32-36); Mean Corpuscular Volume 74.6 fL (80-100); Mean Platelet Volume 9.2 fL (7.4-10.4); Monocytes # (auto) 0.73 K/uL (0.11-0.59); Monocytes % (auto) 8.7 %; Neutrophils # (auto) 5.73 K/uL (1.4-6.5); Platelet Count 374 K/uL (130-400); RDW Coefficient of Variation 18.6 % (11.5-14.5); RDW Standard Deviation 50.4 fL (36.4-46.3); White Blood Count 8.42 K/uL (4.8-10.8)
--- NOTE | 2019-07-19 10:06 | XRay Report ---
XR chest 1V portable CLINICAL HISTORY: 69 years-old Male presenting with Chest Pain. TECHNIQUE: Portable upright AP view of the chest was obtained. COMPARISON: 06/30/2017. FINDINGS: Cardiac silhouette moderately enlarged. Pulmonary vascular prominence and interstitial prominence. Mi nimal added perihilar density. No focal lung opacity. No large effusion or pneumothorax. Osseous stru ctures normal. Upper abdomen normal. IMPRESSION: 1. Cardiomegaly with volume overload and congestive change. Early/developing pulmonary edema difficu lt to exclude. ACT 112: Negative or not required by law. Electronically signed by: Adelfo Lamb M.D. 07/19/2019 10:04 AM
[2019-07-19 10:18] LABS: INR 1.1 (0.9-1.1); Partial Thromboplastin Ratio 1.1; Partial Thromboplastin Time 30.6 Seconds (21.0-31.0); Prothrombin Time 11.9 Seconds (9.0-12.0)
[2019-07-19 10:25] LABS: RBC Morphology Unremarkable
[2019-07-19 10:26] LABS: Alanine Aminotransferase 22 U/L (12-78); Albumin Level 3.2 gm/dl (3.4-5.0); Aspartate Aminotransferase 25 U/L (15-37); BUN Creatinine Ratio 13.2 (10-20); Blood Urea Nitrogen 12 mg/dl (7-18); Calcium 8.7 mg/dl (8.5-10.1); Carbon Dioxide 26 mmol/L (21-32); Chloride 104 mmol/L (98-107); Creatinine Clr Calc Pharmacy 119.6 ml/min; Est GFR (African American) 98.6; Est GFR (Non-African American) 85.1; Glucose 136 mg/dl (70-99); Lipase 61 U/L (73-393); Potassium 3.7 mmol/L (3.5-5.1); Sodium 134 mmol/L (136-145)
[2019-07-19 10:27] LABS: Albumin Globulin Ratio 0.7 (0.9-2); Alkaline Phosphatase 72 U/L (45-117); Bilirubin,Total 0.9 mg/dl (0.2-1); Globulin 4.7 gm/dl (2.5-4.0); Total Protein 7.9 gm/dl (6.4-8.2); Troponin I < 0.015 ng/ml (0-0.045)
[2019-07-19] MEDS ORDERED: METOPROLOL TARTRATE 1 MG/ML VIAL IV STA (10:59)
--- NOTE | 2019-07-19 11:15 | History & Physical Report ---
Date of Service July 19, 2019 Assessment & Plan (1) Chest pain: Patient with crushing substernal chest pain. He denies he has ever had previous cardiac work-up outside of a 2D echo in 2017. He specifically denies cardiac catheterization. For now, will trend cardiac enzymes and repeat an EKG in the morning. Considering patient's risk factors, I would like to defer stress testing as I suspect the patient may require cardiac catheterization. Will consult cardiology for further recommendations in this regard. I will repeat a 2D echo. Patient does not appear to be in active CHF but does seem to have a history of chronic right-sided CHF and evidence of pulmonary hypertension per previous echo. (2) Atrial fibrillation: This is a new finding for this patient with a heart rate in the 100s. He is also mildly hypertensive. Patient is on atenolol 50 mg daily, will increase to 100. Consider IV beta-blockade if heart rate or blood pressure worsen. Patient has a [id number] score of 6 based on history of hypertension, CHF, age, and previous history of provoked DVT. Will start IV heparin gtt. 2D echo as above. Suspect patient will require lifelong anticoagulation at discharge. Cardiology consultation as above. (3) Non-healing surgical wound: Patient is a right hip wound from a previously infected hardware. He is on Augmentin chronically which we will continue. Ask wound care to follow for dressing changes. (4) Type 2 diabetes mellitus: Check hemoglobin A1c. Will hold metformin for possible dye study. For now we will place on ADA diet with sliding scale insulin. (5) Hypertension: Continue outpatient antihypertensives. Possible IV depending on course. (6) Dyslipidemia: Patient is on atorvastatin 10 mg daily. Check lipids. May need to increase to high intensity doses. (7) SABRINA (obstructive sleep apnea): Patient tells me he is on CPAP at home, will continue nightly at his outpatient settings. History of Present Illness Primary Care Provider: Lewis Menendez, This is a 69-year-old male with history of hypertension, diabetes, hyperlipidemia and morbid obesity that presents today complaining of chest pain. Patient is good historian. Patient tells me he was having no symptoms until approximately 8:30 this morning. He had just woken up and was moving around the house when he had a sudden onset of substernal chest pressure. This has no radiations. There is no neck, back, or extremity pain. He is not particularly short of breath but admits to some deconditioning. He has had no diaphoresis or palpitations. He has had no nausea or vomiting. The patient took 6 baby aspirin and then presented to the emergency room for further evaluation. In the ER, nitro was held as the patient is on daily Cialis. The chest pain has continued although it is mildly improved at around 11 AM when I interviewed the patient. He does not appear to be in any significant discomfort. Of note, the patient peers to be in atrial fibrillation with a rate of around 100. He denies any history of this in the past. He does not appear to be in any acute cardiopulmonary distress. Of note, the patient has a right hip wound that is open. This is from previously infected hardware in the right hip. The dressings are changed by his daily. There is no bleeding or bruising from this with the patient was told that this would significantly decrease his life expectancy and he is hesitant to undergo any aggressive procedures due to this. Allergies Allergy/AdvReac Type Severity Reaction Status Date / Time No Known Drug Allergies Allergy Verified 07/19/19 10:40 Home Medications Home Medications Medication Instructions Recorded Confirmed Type cholecalciferol (vitamin D3) 2,000 unit PO QAM 03/03/18 07/19/19 History [Vitamin D3] loratadine 10 mg PO DAILY 03/03/18 07/19/19 History acetaminophen 500 mg capsule 500 mg PO TID cap 11/04/18 07/19/19 History aspirin 81 mg tablet,delayed 81 mg PO QAM tab 11/04/18 07/19/19 History release atenolol 50 mg tablet 50 mg PO QAM tab 11/04/18 07/19/19 History clotrimazole-betamethasone 1 1 appln TOP BID gm 11/04/18 07/19/19 History %-0.05 % topical cream lancets 33 gauge #100 ea 11/04/18 05/19/19 History sildenafil (pulm.hypertension) 20 20 - 100 mg PO DAILY PRN tab 11/04/18 07/19/19 History mg tablet blood sugar diagnostic #10 ea 11/08/18 05/16/19 History compress.stocking,knee,reg,med #2 ea 11/11/18 05/19/19 Rx amoxicillin 875 mg-potassium 1 tab PO BID #60 tab 05/09/19 07/19/19 Rx clavulanate 125 mg tablet tamsulosin 0.4 mg capsule 0.4 mg PO BID #180 cap 05/22/19 07/19/19 Rx testosterone 3 pump TD DAILY 30 Days #60 gm 07/18/19 07/19/19 Rx allopurinol [Zyloprim] 300 mg PO QAM 07/19/19 07/19/19 History atorvastatin [Lipitor] 10 mg PO QAM 07/19/19 07/19/19 History azelastine 2 spray INTRANASAL DAILY PRN 07/19/19 07/19/19 History bupropion HCl [Wellbutrin SR] 100 mg PO BIDM 07/19/19 07/19/19 History furosemide 20 mg PO DAILY PRN 07/19/19 07/19/19 History losartan-hydrochlorothiazide 1 tab PO QAM 07/19/19 07/19/19 History [Hyzaar] metformin [Glucophage XR] 1,000 mg PO BIDM 07/19/19 07/19/19 History nortriptyline 20 - 30 mg PO HS 07/19/19 07/19/19 History tadalafil [Cialis] 5 mg PO HS 07/19/19 07/19/19 History Past Med/Surg History Medical History (Updated 07/19/19 @ 11:33 by Anton Farris DO) Acquired buried penis (Chronic) Alopecia (Chronic) Anxiety (Chronic) Arm pain (Chronic) Atypical nevi (Chronic) Bacteremia (Chronic) BPH (benign prostatic hyperplasia) (Chronic) Chronic pain (Chronic) Chronic venous insufficiency (Chronic) Cor pulmonale (chronic) (Chronic) Decreased testosterone level (Chronic) Degenerative joint disease involving multiple joints on both sides of body (Chronic) Dehiscence of wound (Chronic) Erectile dysfunction (Chronic) Gastroesophageal reflux disease (Chronic) Gout (Chronic) Hypertension (Chronic) Hypotension (Chronic) 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) Knee pain (Chronic) Leg edema (Chronic) Morbid obesity (Chronic) Nocturia (Chronic) Obstructive sleep apnea (Chronic) Open wound of right hip (Acute) Positive blood culture (Chronic) Post op infection (Chronic) Right shoulder pain (Chronic) Tachycardia (Chronic) Tinea pedis (Chronic) Type 2 diabetes mellitus (Chronic) Vitamin D deficiency (Chronic) Surgical History H/O hernia repair (Resolved) 2015 H/O inguinal hernia repair 2016 H/O knee surgery x4 History of bladder surgery History of hip surgery 04/2016 and 05/2016 Hx of cholecystectomy S/P tonsillectomy S/P total knee arthroplasty b/l, then b/l revisions Family History (Updated 07/18/19 @ 12:50 by Crystal George MA) Mother FH: Parkinson's disease Breast cancer Father Coronary heart disease Hypertension Cardiac disease Melanoma Skin cancer Unknown Melanoma Denies family history of Ovarian cancer Prostate cancer Myocardial infarction Social History Preferred Language: [place] Visual Impairment: Limited Hearing Ability: Normal Director Of Collections Required: No marital status: Current Living Situation: Spouse current occupational status: retired Feels Safe at Home: Yes Smoking Status: Never smoker Hx Alcohol Use: No Hx Substance Use: No caffeine: Yes Dental Care, Regularly: Yes Physical Activity Frequency: Does not Exercise Seatbelt Use: always Sunscreen Use: Yes Review of Systems Constitutional: no fever, no chills, no weakness, no weight loss and no weight gain Eyes: as per Subjective / HPI Respiratory: no cough, no chest congestion, no dyspnea and no dyspnea on exertion Cardiovascular: as per Subjective / HPI, + chest pain, + chest pain at rest and + dyspnea on exertion; no radiating jaw, neck or arm pain, no orthopnea, no palpitations, no lightheadedness and no edema Gastrointestinal: no abdominal pain, no nausea, no vomiting, no constipation and no diarrhea/loose stools Genitourinary: no dysuria and no difficulty urinating Musculoskeletal: no back pain, no neck pain, no joint pain, no stiffness and no myalgia Integumentary: no rash Neurologic: no gait abnormality, no unsteadiness, no falls and no generalized weakness Physical Exam Constitutional: + morbidly obese and cooperative; no acute distress Neck: trachea midline, no thyromegaly Respiratory: normal respiratory effort Auscultation: lungs clear to auscultation bilaterally (Somewhat limited secondary to body habitus); no crackles, no rales, no rhonchi and no wheezes Cardiovascular: Rate/Rhythm: regular rate and + irregularly irregular Heart Sounds: normal S1 and normal S2 Vessels: no JVD and no carotid bruit Extremities: no pedal edema Gastrointestinal (Abdomen): Inspection/Auscultation: abdomen normal to inspection Percussion/Palpation: abdomen soft; abdomen nontender, no guarding, abdomen not rigid and no hepatosplenomegaly Musculoskeletal: Significant chronic venous stasis changes bilaterally, no edema. Poor foot and nail hygiene. Right hip with dressing and Tegaderm in place, appears clean dry and intact. Skin: no rashes, warm and dry Results & Data Results & Data ([facility]) Vital Signs (Past 12 Hours) Vital Signs Temp Pulse Resp BP Pulse Ox 07/19/19 11:01 103 H 24 153/93 H 94 07/19/19 10:51 90 20 166/89 H 91 07/19/19 10:30 94 H 20 95 07/19/19 10:00 86 21 96 07/19/19 09:45 36.7 C 93 H 20 173/95 H 95 Laboratory Results WBCs of 8.4, hemoglobin of 12.9 with hematocrit of 41.8. Platelets of 374. INR is 1.1. Sodium 134, potassium 3.7, chloride 104, CO2 26, BUN of 12 with creatinine 0.91. Glucose is 136. Last hemoglobin A1c is from October 2018 and is 6.7. Calcium of 8.7. Liver enzymes are normal. Lipase is 61. EKG from this morning shows atrial fibrillation with a rate of 90, nonspecific ST-T wave changes. Second EKG again shows atrial fibrillation with a rate of 92. Diagnostic Findings [facility], [facility] [phone] XRay Report Patient: MERLYN AUSTIN Date: 07/19/19 MR#: [id number]: [address] Acct ID:[id number]: Date: 1950[facility] Zip: [place] [address] Age: 69Location: ED Sex: M Room/Bed: Att Phy:Diagnosis: CHEST PAIN Ольга Phy: Lewis Menendez, DOService Date: 07/19/19 Fam Phy:Interpreting Phy: Adelfo B [place] MD Admit Phy: Ordering Phy: Abelino Villarreal, DO cc: ~ XR chest 1V portable CLINICAL HISTORY: 69 years-old Male presenting with Chest Pain. TECHNIQUE: Portable upright AP view of the chest was obtained. COMPARISON: 06/30/2017. FINDINGS: Cardiac silhouette moderately enlarged. Pulmonary vascular prominence and interstitial prominence. Minimal added perihilar density. No focal lung opacity. No large effusion or pneumothorax. Osseous structures normal. Upper abdomen normal. IMPRESSION: 1. Cardiomegaly with volume overload and congestive change. Early/developing pulmonary edema difficult to exclude. PG Care Time/CCT Total # of Minutes Spent Total Time Spent with Patient: Total time spent is greater than 50% in coordination of care (as documented) at patient's floor/unit and/or counseling patient: Coding Level of Care Code 99787 OBS Care - Level 3 Diagnoses Chest pain R07.9 Atrial fibrillation I48.91 Non-healing surgical wound T81.89XD Encounter type: subsequent encounter Type 2 diabetes mellitus E11.9 Hypertension I10 Dyslipidemia E78.5 SABRINA (obstructive sleep apnea) G47.33 (1) Non-healing surgical wound Encounter type: subsequent encounter Qualified Code(s): T81.89XD - Other complications of procedures, not elsewhere classified, subsequent encounter
--- NOTE | 2019-07-19 12:14 | Electrocardiogram Report ---
Test Reason : Blood Pressure : / mmHG Vent. Rate : 090 BPM Atrial Rate : 108 BPM P-R Int : 000 ms QRS Dur : 104 ms QT Int : 372 ms P-R-T Axes : 000 132 135 degrees QTc Int : 455 ms Atrial fibrillation Left posterior fascicular block possible Inferior infarct , age undetermined Abnormal ECG When compared with ECG of 30-JUN-2017 10:56, Atrial fibrillation has replaced Sinus rhythm QRS axis Shifted right Nonspecific T wave abnormality now evident in Inferior leads Confirmed by Ovidio Meeks ([id number]) on 07/19/2019 12:14:16 PM Referred By: Confirmed By:Jerman Meeks
--- NOTE | 2019-07-19 12:15 | Electrocardiogram Report ---
Test Reason : Blood Pressure : / mmHG Vent. Rate : 092 BPM Atrial Rate : 063 BPM P-R Int : 000 ms QRS Dur : 106 ms QT Int : 378 ms P-R-T Axes : 000 044 036 degrees QTc Int : 467 ms Atrial fibrillation Poor R wave progression, consider anterior SC vs. lead placement vs. LVH Abnormal ECG When compared with ECG of 19-JUL-2019 09:53, (unconfirmed) QRS axis Shifted left Confirmed by Ovidio Meeks ([id number]) on 07/19/2019 12:15:10 PM Referred By: REFERRED SELF Confirmed By:Jerman Meeks
[2019-07-19] MEDS ORDERED: GLUCOSE 40% GEL 15 GM TUBE PO PRN (12:59)
[2019-07-19] MEDS ORDERED: CARBOHYDRATES FOR HYPOGLYCEMIA PO PRN (12:59)
[2019-07-19] MEDS ORDERED: FUROSEMIDE 20 MG TAB PO PRN (12:59)
[2019-07-19] MEDS ORDERED: DEXTROSE 50% 50 ML SYRINGE IV PRN (12:59)
[2019-07-19] MEDS ORDERED: MAGNESIUM HYDROXIDE SUSP 30 ML UDC PO PRN (12:59)
[2019-07-19] MEDS ORDERED: GLUCAGON FOR INJ 1 MG VIAL SQ PRN (12:59)
[2019-07-19] MEDS ORDERED: ACETAMINOPHEN 325 MG TAB PO PRN (12:59)
[2019-07-19] MEDS ORDERED: GLUCOSE 10 TABS/TUBE PO PRN (12:59)
[2019-07-19] MEDS ORDERED: ALUMINUM/MAGNESIUM SUSP 30 ML UDC PO PRN (12:59)
[2019-07-19] MEDS ORDERED: ONDANSETRON INJ 2 MG/ML 2 ML VIAL IV PRN (12:59)
[2019-07-19] MEDS ORDERED: HEPARIN IV BOLUS 9,000 UNITS in SYRINGE 0 ML IV ONE (13:30)
[2019-07-19] MEDS: ACETAMINOPHEN 500 MG TAB PO SCH ×2 (13:55→20:27)
[2019-07-19] MEDS: HEPARIN SODIUM/DEXTROSE 25,000 UNITS/500 ML BAG IV SCH (13:55)
[2019-07-19] MEDS: BuPROPion SR 100 MG TABCR PO SCH (13:57)
[2019-07-19] MEDS ORDERED: PERFLUTREN LIPID MICROSPHERE (DEFINITY) IV ONE (14:55)
[2019-07-19] MEDS ORDERED: PNEUMOCOCCAL Polysaccharide Vaccine 25mcg/0.5mL vial/Syr IM ONE (15:00)
--- NOTE | 2019-07-19 15:33 | Cardiology Consultation ---
Date of Consultation July 19, 2019 Assessment & Plan (1) Chest pain: The patient's chest pain is certainly concerning for an acute coronary syndrome. An alternative diagnosis be in acute pulmonary embolus. He certainly has risk factors for both. His echocardiogram did not demonstrate dilation of the right ventricle or definite elevation in the pulmonary pressures. However, I think it would be reasonable given the symptoms, risk factors and new onset atrial fibrillation to exclude pulmonary embolus. He is currently being systemically anticoagulated and adequately treated in any regard. Certainly he has multiple risk factors for coronary disease in this could easily represent an acute coronary syndrome. Fortunately, he is pain-free at this time. He is on systemic heparinization. I think adding Plavix to his regimen is reasonable. I will continue to trend is biomarkers. I did describe the procedure of coronary angiography which would be recommended for evidence of myocardial injury such as elevated biomarkers. Currently on beta-blockade and aspirin as well. (2) Atrial fibrillation: He has not had an EKG in some time. He is not symptomatic nor has there been any objective evidence of atrial fibrillation in the past. The duration of his atrial fibrillation is unclear. Overall rate control appears reasonable on his current dose of atenolol but he may require some extra beta-blockade this evening. Based on his risk factors he should undergo systemic anticoagulation as an outpatient. Will defer this until we determine if he would need additional procedures prior to discharge. Unfortunately, based on his weight the novel oral anticoagulants are relatively contraindicated. I think giving him a dose of warfarin tonight would be reasonable. (3) Elevated troponin: Biomarkers are mildly elevated at this point. This would suggest some evidence of myocardial injury. Will continue to trend the biomarkers. It is possible that he could have myocardial strain from pulmonary embolus. The more likely diagnosis would be an acute coronary syndrome although resolution without any specific intervention is unusual. Do not think there is any urgent indication for a catheterization. In fact, we would ideally weight nearly 48 hours in order to perform coronary angiography due to his use of Cialis and possible requirement for nitrates during angiography. History of Present Illness Reason for Consultation: Chest pain Requesting Physician: Brenton Attending Physician: Anton Farris, DO History of Present Illness The patient is a 69-year-old gentleman without a known history of cardiac disease who noticed the acute onset of severe substernal chest discomfort this morning around 8:30 a.m.. Patient states that he was just getting up from sleep and was going to use the restroom when he noticed the onset of discomfort. He did not have radiation of the discomfort to the arm, jaw or back. It did not seem to impair his breathing. He was not associated with dizziness or lightheadedness or any sense of palpitation. There is not appear to be any positional component and he had no specific remedy which improved his symptoms. He was able take his morning medicines with some water. Due to the persistent nature of his symptoms he called EMS and was transported to our facility. In route he was noted to have an irregular heart rhythm. He states that his symptoms did resolve once he arrived at the hospital. It was unclear to the patient what resulted in improvement. He was administered some narcotics in the emergency room but no nitroglycerin due to concerns over use of Cialis. He cannot recall having similar symptoms in the past. In general he is an active individual who is able to ambulate without much limitation. 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 He has not report exertional chest pain or similar symptoms with activity. He does have dyspnea on occasion and attributes it to being out of shape and overweight. He cannot recall any sense of palpitations recently. He does not routinely take his blood pressure pulse. He does report some breathing difficulty at night. He does use CPAP but occasionally wakes up feeling as if he is suffocating. Currently is feeling well. His symptoms appear to have entirely resolved. With deep inspiration is a very slight sensation of chest discomfort but at rest he has no symptoms. No breathing difficulty currently. No sense of palpitation currently. Allergies Allergy/AdvReac Type Severity Reaction Status Date / Time No Known Drug Allergies Allergy Verified 07/19/19 10:40 Home Medications Home Medications Medication Instructions Recorded Confirmed Type cholecalciferol (vitamin D3) 2,000 unit PO QAM 03/03/18 07/19/19 History [Vitamin D3] loratadine 10 mg PO DAILY 03/03/18 07/19/19 History acetaminophen 500 mg capsule 500 mg PO TID cap 11/04/18 07/19/19 History aspirin 81 mg tablet,delayed 81 mg PO QAM tab 11/04/18 07/19/19 History release atenolol 50 mg tablet 50 mg PO QAM tab 11/04/18 07/19/19 History clotrimazole-betamethasone 1 1 appln TOP BID gm 11/04/18 07/19/19 History %-0.05 % topical cream lancets 33 gauge #100 ea 11/04/18 05/19/19 History sildenafil (pulm.hypertension) 20 20 - 100 mg PO DAILY PRN tab 11/04/18 07/19/19 History mg tablet blood sugar diagnostic #10 ea 11/08/18 05/16/19 History compress.stocking,knee,reg,med #2 ea 11/11/18 05/19/19 Rx amoxicillin 875 mg-potassium 1 tab PO BID #60 tab 05/09/19 07/19/19 Rx clavulanate 125 mg tablet tamsulosin 0.4 mg capsule 0.4 mg PO BID #180 cap 05/22/19 07/19/19 Rx testosterone 3 pump TD DAILY 30 Days #60 gm 07/18/19 07/19/19 Rx allopurinol [Zyloprim] 300 mg PO QAM 07/19/19 07/19/19 History atorvastatin [Lipitor] 10 mg PO QAM 07/19/19 07/19/19 History azelastine 2 spray INTRANASAL DAILY PRN 07/19/19 07/19/19 History bupropion HCl [Wellbutrin SR] 100 mg PO BIDM 07/19/19 07/19/19 History furosemide 20 mg PO DAILY PRN 07/19/19 07/19/19 History losartan-hydrochlorothiazide 1 tab PO QAM 07/19/19 07/19/19 History [Hyzaar] metformin [Glucophage XR] 1,000 mg PO BIDM 07/19/19 07/19/19 History nortriptyline 20 - 30 mg PO HS 07/19/19 07/19/19 History tadalafil [Cialis] 5 mg PO HS 07/19/19 07/19/19 History Patient History Medical History Acquired buried penis (Chronic) Alopecia (Chronic) Anxiety (Chronic) Arm pain (Chronic) Atypical nevi (Chronic) Bacteremia (Chronic) BPH (benign prostatic hyperplasia) (Chronic) Chronic pain (Chronic) Chronic venous insufficiency (Chronic) Cor pulmonale (chronic) (Chronic) Decreased testosterone level (Chronic) Degenerative joint disease involving multiple joints on both sides of body (Chronic) Dehiscence of wound (Chronic) Erectile dysfunction (Chronic) Gastroesophageal reflux disease (Chronic) Gout (Chronic) Hypertension (Chronic) Hypotension (Chronic) 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) Knee pain (Chronic) Leg edema (Chronic) Morbid obesity (Chronic) Nocturia (Chronic) Obstructive sleep apnea (Chronic) Open wound of right hip (Acute) Positive blood culture (Chronic) Post op infection (Chronic) Right shoulder pain (Chronic) Tachycardia (Chronic) Tinea pedis (Chronic) Type 2 diabetes mellitus (Chronic) Vitamin D deficiency (Chronic) Surgical History H/O hernia repair (Resolved) 2016 H/O inguinal hernia repair 2016 H/O knee surgery x4 History of bladder surgery History of hip surgery 04/2016 and 05/2016 Hx of cholecystectomy S/P tonsillectomy S/P total knee arthroplasty b/l, then b/l revisions Family History Mother FH: Parkinson's disease Breast cancer Father Coronary heart disease Hypertension Cardiac disease Melanoma Skin cancer Unknown Melanoma Denies family history of Ovarian cancer Prostate cancer Myocardial infarction Social History Preferred Language: Taiwanese Communication Ability: Effective Visual Impairment: Limited Hearing Ability: Normal Pouncer Machine Required: No Beliefs That Will Affect Care: None marital status: Current Living Situation: Spouse current occupational status: retired Other Information That Helps Us Care for You: No Feels Safe at Home: Yes Safety Concerns: Feels Safe At This Time and Afraid for Self Smoking Status: Never smoker Hx Alcohol Use: No Hx Substance Use: No caffeine: Yes Dental Care, Regularly: Yes Physical Activity Frequency: Does not Exercise Seatbelt Use: always Sunscreen Use: Yes Review of Systems Review of Systems: All systems reviewed & are unremarkable except as noted in HPI & below He did not report any recent fevers or chills. No difficulty with eating or drinking. He does report a sense of inguinal hernia in the right groin area and was scheduled to have this evaluated by his urologist. He does report having difficulty with urination due to micro penis and actually uses Cialis in order to facilitate urination and care of the penis. Physical Exam Physical Exam: The patient is alert and oriented. Mood and affect appeared normal. He answered all questions appropriately. Obese HEENT: Pupils are equal and reactive to light and accommodation. Extraocular movements are intact. The sclerae are anicteric. Neuro: Cranial nerves intact Neck: Patient's neck is supple. He has palpable carotid pulses bilaterally without bruits on auscultation. There is no evidence of jugular venous distention. The thyroid is not enlarged. Lungs: Clear to auscultation bilaterally. He has good air movement without use of accessory muscles. No rales wheezes or rhonchi. Cardiac: Heart demonstrates an irregular rate and rhythm. Normal S1 and S2. No murmurs on examination. Pulses: The patient has palpable radial pulses bilaterally that are equal in intensity Extremities: There was no evidence of hypoperfusion. There is no cyanosis or clubbing. Moderate lower extremity edema to the mid calf with trophic changes bilaterally. Skin: I did not appreciate any other rashes on examination today. Results & Data ([facility]) Vital Signs (Past 12 Hours) Vital Signs Temp Pulse Pulse Resp BP BP Pulse Ox 07/19/19 15:04 36.3 C L 98 H 20 125/60 91 07/19/19 13:52 91 H 16 97 07/19/19 13:31 22 07/19/19 13:17 117 H 07/19/19 13:11 36.3 C L 24 167/110 H 93 07/19/19 12:27 80 20 142/99 H 94 07/19/19 12:00 87 18 142/99 H 92 07/19/19 11:30 99 H 23 157/93 H 94 07/19/19 11:10 91 H 153/93 H 07/19/19 11:01 103 H 24 153/93 H 94 07/19/19 10:51 90 20 166/89 H 91 07/19/19 10:30 94 H 20 95 07/19/19 10:00 86 21 96 07/19/19 09:45 36.7 C 93 H 20 173/95 H 95 Laboratory Results Abnormal Lab Results 07/19/19 07/19/19 07/19/19 09:55 09:55 09:55 WBC 8.42 RBC 5.60 Hgb 12.9 L Hct 41.8 L MCV 74.6 L MCH 23.0 L MCHC 30.9 L RDW Std Deviation 50.4 H RDW Coeff of Rich 18.6 H Plt Count 374 MPV 9.2 Immature Gran % (Auto) 0.4 Neut % (Auto) 68.0 Lymph % (Auto) 20.3 Harding % (Auto) 8.7 Eos % (Auto) 2.0 Baso % (Auto) 0.6 Immature Gran # (Auto) 0.03 H Neut # (Auto) 5.73 Lymph # (Auto) 1.71 Harding # (Auto) 0.73 H Eos # (Auto) 0.17 Baso # (Auto) 0.05 RBC Morphology Unremarkable PT 11.9 INR 1.1 APTT 30.6 PTT Ratio 1.1 Sodium 134 L Potassium 3.7 Chloride 104 Carbon Dioxide 26 Anion Gap 4.0 BUN 12 Creatinine 0.91 Est Cr Clr Drug Dosing 119.6 Est GFR ( Amer) 98.6 Est GFR (Non-Af Amer) 85.1 BUN/Creatinine Ratio 13.2 Glucose 136 H Calcium 8.7 Total Bilirubin 0.9 AST 25 ALT 22 Alkaline Phosphatase 72 Troponin I < 0.015 Total Protein 7.9 Albumin 3.2 L Globulin 4.7 H Albumin/Globulin Ratio 0.7 L Lipase 61 L Specimen Hemolysis 07/19/19 13:35 WBC RBC Hgb Hct MCV MCH MCHC RDW Std Deviation RDW Coeff of Rich Plt Count MPV Immature Gran % (Auto) Neut % (Auto) Lymph % (Auto) Harding % (Auto) Eos % (Auto) Baso % (Auto) Immature Gran # (Auto) Neut # (Auto) Lymph # (Auto) Harding # (Auto) Eos # (Auto) Baso # (Auto) RBC Morphology PT INR APTT PTT Ratio Sodium Potassium Chloride Carbon Dioxide Anion Gap BUN Creatinine Est Cr Clr Drug Dosing Est GFR ( Amer) Est GFR (Non-Af Amer) BUN/Creatinine Ratio Glucose Calcium Total Bilirubin AST ALT Alkaline Phosphatase Troponin I 0.148 H* Total Protein Albumin Globulin Albumin/Globulin Ratio Lipase Specimen Hemolysis Diagnostic Findings Chest x-ray obtained at the time of admission did not reveal any acute cardiopulmonary process. Echocardiogram performed today revealed preserved LV systolic function. Right ventricle did not appear enlarged. No significant valvular heart disease. ECG Additional Comments: Serial EKGs did demonstrate atrial fibrillation with controlled ventricular rate. No ischemic changes. Possible old inferior myocard ial infarction PG Care Time/CCT Total # of Minutes Spent Total Time Spent with Patient: Total time spent is greater than 50% in coordination of care (as documented) at patient's floor/unit and/or counseling patient: Coding Level of Care Code 70439 Initial Inpt Care Lvl 3 Diagnoses Chest pain R07.9 Chest pain type: unspecified Atrial fibrillation I48.91 Elevated troponin R79.89 (1) Chest pain Chest pain type: unspecified Qualified Code(s): R07.9 - Chest pain, unspecified
[2019-07-19] MEDS ORDERED: CLOPIDOGREL BISULFATE 300 MG TAB PO ONE (16:48)
[2019-07-19] MEDS ORDERED: WARFARIN SOD 5 MG TAB PO ONE (16:50)
[2019-07-19] MEDS: INSULIN ASPART 100 UNITS/ML 3 ML PEN SC SCH ×2 (17:16→21:06)
[2019-07-19 17:31] LABS: Partial Thromboplastin Ratio 2.4
[2019-07-19 17:57] LABS: Partial Thromboplastin Time 66.6 Seconds (21.0-31.0)
[2019-07-19] MEDS ORDERED: METOPROLOL TARTRATE 25 MG TAB PO ONE (18:00)
[2019-07-19] MEDS ORDERED: OPTIRAY 320 125ml IV PRN (18:07)
--- NOTE | 2019-07-19 18:19 | CT Scan Report ---
CT ANGIOGRAM OF THE CHEST CLINICAL HISTORY: Dyspnea. COMPARISON STUDY: Chest x-ray dated 07/19/2019. Chest CT dated 07/26/2017. TECHNIQUE: Following the IV administration of 118 cc of Optiray 320, CT angiogram of the chest was pe rformed from the upper abdomen to the thoracic inlet utilizing the pulmonary embolus protocol. Images are reviewed in the axial, sagittal, and coronal planes. 3-D MIPS images are created and assessed. I V contrast was administered without complication. A dose lowering technique was utilized adhering to the principles of ALARA. The examination is degraded by streak artifact from body wall abutting the CT gantry. CT DOSE: 595.38 mGycm FINDINGS: Thyroid: Imaged portions of the thyroid gland are normal in size and attenuation. Thoracic aorta: The thoracic aorta is normal in caliber and demonstrates standard 3-vessel arch anato my. No dissection is seen. Pulmonary vasculature: The pulmonary trunk is normal in caliber. There are no filling defects identif ied in main, lobar, or segmental pulmonary branches to suggest pulmonary embolus. Heart: The heart is enlarged and without pericardial effusion. Lungs and pleural spaces: Evaluation of the lung parenchyma is modestly degraded by motion artifact. No airspace consolidation is seen typical for pneumonia. No pleural effusion is identified. Diffuse i ntralobular septal thickening suggests congestive failure. The trachea and central airways are clear. Mediastinum: Scattered subcentimeter mediastinal lymph nodes are not pathologically enlarged by size criteria. Addis: Clear. Axillae: There is no axillary lymphadenopathy. Upper abdomen: Cholecystectomy clips are noted. Nodularity of the hepatic surface contour suggests ea rly change of cirrhosis. A small hiatal hernia is noted. Skeletal structures: The skeletal structures are osteopenic. No lytic or blastic bony lesions are see n. Soft tissues: Gynecomastia is noted. IMPRESSION: 1. There is no evidence of pulmonary embolus in the main, lobar, or segmental pulmonary arteries. 2. Cardiomegaly with evidence of congestive failure. 3. No airspace consolidation or pleural effusion is identified. 4. Additional findings as above. ACT 112: Negative or not required by law. Electronically signed by: Demond Haro M.D. 07/19/2019 6:17 PM
[2019-07-19] MEDS: AMOXICILLIN/CLAVULANATE 875 MG TAB PO SCH (18:23)
[2019-07-19] MEDS ORDERED: CLOPIDOGREL BISULFATE 300 MG TAB ONE (19:12)
[2019-07-19] MEDS: NORTRIPTYLINE HCL 10 MG CAP PO SCH (20:27)
[2019-07-19] MEDS: TAMSULOSIN HCL 0.4 MG CAP PO SCH (20:27)
[2019-07-20 01:01] LABS: Partial Thromboplastin Ratio 1.7
[2019-07-20 01:03] LABS: Partial Thromboplastin Time 48.1 Seconds (21.0-31.0)
[2019-07-20] MEDS: HEPARIN SODIUM/DEXTROSE 25,000 UNITS/500 ML BAG IV SCH ×3 (03:46→22:30)
[2019-07-20 06:07] LABS: Basophils # (auto) 0.06 K/uL (0-0.2); Basophils % (auto) 0.7 %; Eosinophils # (auto) 0.11 K/uL (0-0.5); Eosinophils % (auto) 1.3 %; Hematocrit (blood only) 41.5 % (42-52); Hemoglobin 12.7 g/dL (14.0-18.0); Immature Granulocytes # (auto) 0.03 K/uL (0.00-0.02); Immature Granulocytes % (auto) 0.3 %; Lymphocytes # (auto) 1.72 K/uL (1.2-3.4); Lymphocytes % (auto) 19.7 %; Mean Corpuscular Hemoglobin 22.8 pg (25-34); Mean Corpuscular Hgb Conc 30.6 g/dL (32-36); Mean Corpuscular Volume 74.5 fL (80-100); Mean Platelet Volume 9.5 fL (7.4-10.4); Monocytes # (auto) 0.85 K/uL (0.11-0.59); Monocytes % (auto) 9.7 %; Neutrophils # (auto) 5.98 K/uL (1.4-6.5); Neutrophils % (auto) 68.3 %; Platelet Count 363 K/uL (130-400); RDW Coefficient of Variation 18.6 % (11.5-14.5); RDW Standard Deviation 50.4 fL (36.4-46.3); Red Blood Count 5.57 M/uL (4.7-6.1); White Blood Count 8.75 K/uL (4.8-10.8)
[2019-07-20 06:19] LABS: Partial Thromboplastin Ratio 1.5; Partial Thromboplastin Time 42.7 Seconds (21.0-31.0)
[2019-07-20 06:29] LABS: Anisocytosis Present; Polychromasia 1+
[2019-07-20 06:37] LABS: Estimated Average Glucose 148 mg/dl; Hemoglobin A1C 6.8 % (4.5-5.6)
[2019-07-20 06:44] LABS: BUN Creatinine Ratio 15.3 (10-20); Calcium 8.5 mg/dl (8.5-10.1); Creatinine Clr Calc Pharmacy 128.6 ml/min; Est GFR (African American) 102.3; Est GFR (Non-African American) 88.3; Magnesium 1.6 mg/dl (1.8-2.4); Potassium 3.9 mmol/L (3.5-5.1)
[2019-07-20] MEDS ORDERED: HEPARIN IV BOLUS 4,000 UNITS in SYRINGE 0 ML IV ONE (06:45)
[2019-07-20 07:17] LABS: Troponin I 6.07 ng/ml (0-0.045)
--- NOTE | 2019-07-20 07:28 | Hospitalist Progress Note ---
Date of Service July 20, 2019 Assessment & Plan (1) Chest pain: Patient with crushing substernal chest pain. Troponins are trending upward. He has ever had previous cardiac work-up outside of a 2D echo in 2017. Patient had left heart catheterization performed 07/[address] Meeks there is no significant stenotic areas or occlusive areas recommending medical management, with dual antiplatelet agents and high potency statin maintaining heart rate control with a beta-néstor Pt history of chronic right-sided CHF and evidence of pulmonary hypertension per previous echo. (2) Atrial fibrillation: This is a new finding, he remains atenolol with the dose increased to 100 for better rate control and anti anginal affects. . C [id number] score of 6 based on history of hypertension, CHF, age, and previous history of provoked DVT. Heparin discontinued and warfarin began by cardiology (3) Non-healing surgical wound: Patient is a right hip wound from a previously infected hardware. He is on Augmentin chronically which we will continue. Ask wound care to follow for dressing changes. (4) Type 2 diabetes mellitus: Check hemoglobin A1c. Will holding metformin after infusion of intravenous dye likely resume in 72 hours, on ADA diet with sliding scale insulin. (5) Hypertension: Continue outpatient antihypertensives. losartan/hctz, follow renal function with radiology contrast dye (6) Dyslipidemia: Patient is on atorvastatin 10 mg daily. Given trend of troponins will increase to high intensity doses. (7) SABRINA (obstructive sleep apnea): Patient tells me he is on CPAP at home, will continue nightly at his outpatient settings. Admission and Anticipated Discharge Date Admission Date: July 19, 2019 Subjective Patient was seen post procedure he is slightly groggy but he was able to have a conversation with me is no further symptoms or chest pain. We discussed the results of the procedure and the fact that he is in a be with medical management he is agreeable to this. We also discussed about long-term anticoagulation for his atrial fibrillation and he also expressed an understanding at this time considering warfarin cardiology has begun dosing him with warfarin at this time Review of Systems Review of Systems: Mild distress and fatigue no headache, blurry or double vision no speech or swallowing issues no further chest pain, pressure or palpitations no shortness of breath, cough or wheezes no abdominal pain, nausea or vomiting, diarrhea or constipation no dysuria, hematuria or frequency no focal joint pain or swelling, right radial artery access site is without discomfort and is without numbness no back pain, CVA tenderness or radicular pain no bruising, bleeding or rashes no focal signs of weakness or numbness or altered sensation no complaints or anxiety or depression Physical Exam Physical Exam: The patient appeared well nourished and normally developed. Vital signs as documented. Head exam is unremarkable. No scleral icterus Neck is without JVD, thyromegaly, or carotid bruits. Lungs are clear to auscultation and percussion. Cardiac exam, Rhythm is regular.. No murmurs, rubs or gallops. Abdominal exam reveals normal bowel sounds, soft non tender, no masses Extremities are nonedematous and both pedal pulses are normal. Neurologic exam is alert and oriented, no focal loss of strength or sensation Skin is without bruises or rashes Psychologically is without concerns for anxiety or depression Results & Data Results & Data ([facility]) Vital Signs (Past 12 Hours) Vital Signs Temp Pulse Pulse Resp BP Pulse Ox 07/20/19 04:22 97.7 F 87 20 137/80 90 07/20/19 00:44 114 H 07/19/19 23:59 97.7 F 81 20 157/96 H 94 07/19/19 23:14 90 16 96 07/19/19 20:07 97.9 F 97 H 18 129/74 91 PG Care Time/CCT Total # of Minutes Spent Total Time Spent with Patient: Total time spent is greater than 50% in coordination of care (as documented) at patient's floor/unit and/or counseling patient: Coding Level of Care Code 53299 Subseq Hosp Care Lvl 3 Diagnoses Chest pain R07.9 Atrial fibrillation I48.91 Non-healing surgical wound T81.89XD Encounter type: subsequent encounter Type 2 diabetes mellitus E11.9 Hypertension I10 Hypertension type: unspecified Dyslipidemia E78.5 SABRINA (obstructive sleep apnea) G47.33 (1) Non-healing surgical wound Encounter type: subsequent encounter Qualified Code(s): T81.89XD - Other complications of procedures, not elsewhere classified, subsequent encounter (2) Hypertension Hypertension type: unspecified Qualified Code(s): I10 - Essential (primary) hypertension
[2019-07-20] MEDS: INSULIN ASPART 100 UNITS/ML 3 ML PEN SC SCH ×4 (07:54→21:14)
[2019-07-20] MEDS: BuPROPion SR 100 MG TABCR PO SCH ×2 (07:54→14:19)
[2019-07-20] MEDS: ASPIRIN 81 MG ECTAB PO SCH (07:55)
[2019-07-20] MEDS: LORATADINE 10 MG TAB PO SCH (07:56)
[2019-07-20] MEDS: AMOXICILLIN/CLAVULANATE 875 MG TAB PO SCH ×2 (07:56→16:40)
[2019-07-20] MEDS: TAMSULOSIN HCL 0.4 MG CAP PO SCH ×2 (07:57→20:06)
[2019-07-20] MEDS: LOSARTAN/HCTZ 50/12.5MG TAB PO SCH (07:57)
[2019-07-20] MEDS: CHOLECALCIFEROL 1,000 UNITS 25 MCG TAB PO SCH (07:59)
[2019-07-20] MEDS: ACETAMINOPHEN 500 MG TAB PO SCH ×3 (07:59→20:06)
[2019-07-20] MEDS: allopurinoL 300 MG TAB PO SCH (08:00)
[2019-07-20] MEDS: ATORVASTATIN 40 MG TAB PO SCH (08:04)
[2019-07-20] MEDS ORDERED: ATENOLOL 50 MG TABLET PO SCH (09:00)
[2019-07-20] MEDS ORDERED: ATORVASTATIN 10 MG TAB PO SCH (09:00)
--- NOTE | 2019-07-20 09:01 | Pre Anesthesia Assessment ---
Date of Service July 20, 2019 Pre Sedation Assessment Vital Signs Temp Pulse Pulse Resp BP BP Pulse Ox 07/20/19 07:26 95 H 07/20/19 04:22 36.5 C 87 20 137/80 90 07/20/19 00:44 114 H 07/19/19 23:59 36.5 C 81 20 157/96 H 94 07/19/19 23:14 90 16 96 07/19/19 20:07 36.6 C 97 H 18 129/74 91 07/19/19 15:59 106 H 07/19/19 15:04 36.3 C L 98 H 20 125/60 91 07/19/19 13:52 91 H 16 97 07/19/19 13:31 22 07/19/19 13:17 117 H 07/19/19 13:11 36.3 C L 24 167/110 H 93 07/19/19 12:27 80 20 142/99 H 94 07/19/19 12:00 87 18 142/99 H 92 07/19/19 11:30 99 H 23 157/93 H 94 07/19/19 11:10 91 H 153/93 H 07/19/19 11:01 103 H 24 153/93 H 94 07/19/19 10:51 90 20 166/89 H 91 07/19/19 10:30 94 H 20 95 07/19/19 10:00 86 21 96 07/19/19 09:45 36.7 C 93 H 20 173/95 H 95 Cardiovascular + irregularly irregular Respiratory + respiratory effort normal Pre-Sedation Airway Assessment Smoking Status: Never smoker Hx Sleep Apnea: Yes Hx Difficult Intubation: No Short, Thick Neck: No Oral Cavity: + WNL Mallampati Class: III ASA: ASA3 Procedure Planning Contraindications for Sedation: none Current Medications Reviewed: Yes Notes The planned sedation has been discussed with the patient. Informed Consent was obtained. I have identified the patient, determined the appropriateness of sedation and have assessed the patient immediately prior to the procedure. All medicine(s) and interventions are by my order.
[2019-07-20] MEDS: CLOPIDOGREL BISULFATE 75 MG TAB PO SCH (09:20)
[2019-07-20] MEDS: MAGNESIUM SULFATE / D5W 1 GM/100 ML BAG IV SCH ×2 (09:37→10:25)
[2019-07-20] MEDS ORDERED: NiCARDipine HCL INJ 2.5 MG/ML 10 ML AMP ONE (10:22)
[2019-07-20] MEDS ORDERED: fentaNYL citrate 100 MCG/2 ML VIAL ONE ×2 (10:22→12:13)
[2019-07-20] MEDS ORDERED: HEPARIN (PORCINE) 1000 UNIT/ML 10 ML (CATH LAB USE ONLY) ONE ×2 (10:22→12:40)
[2019-07-20] MEDS ORDERED: MIDAZOLAM HCL 1 MG/ML 2ML VIAL ONE ×2 (10:23→12:13)
--- NOTE | 2019-07-20 11:48 | XCELERA ---
[id number] [id number]
[2019-07-20] MEDS ORDERED: ACETAMINOPHEN 325 MG TAB PO PRN (13:11)
[2019-07-20] MEDS ORDERED: OXYCODONE HCL IR 5 MG TAB (IMMEDIATE RELEASE) PO PRN (13:11)
[2019-07-20] MEDS ORDERED: SODIUM CHLORIDE 0.9% 1000ML 1,000 ML IV SCH (13:15)
--- NOTE | 2019-07-20 13:22 | Cardiac Catheterization ---
[facility] Data: Rn Cardiac Rehab Cardiac Status Clinical evaluation leading to the procedure CAD Presenation: Non STEMI Diagnostic Physicians Name: Ovidio Meeks MD Closure Device Recommendations: Medical Therapy and/or Counseling Cardiac Cath Procedure Full Procedure Date July 20, 2019 Pre-Procedure Diagnosis Pre-Procedure Diagnosis: Non STEMI AUC Score AUC Score: 8 Post-Procedure Diagnosis Post-Procedure Diagnosis: Moderate CAD Procedure(s) Performed Procedure(s) Performed: Coronary Angiography and Left Heart Cath Underwriting Intern Ovidio Meeks MD Head Of Digital(s) none Estimated Blood Loss Estimated Blood Loss: 10cc Medication(s) Medication(s): Fentanyl, Heparin, Lidocaine 1%, Nicardipine and Versed Summary of Findings Procedure performed: Left heart catheterization, selective coronary angiography Staff netsuite developer: Ovidio Meeks MD Indication: Patient is a 69-year-old gentleman without a known history of cardiac disease who presented with severe chest discomfort and elevated cardiac biomarkers. He is felt to be a good candidate for coronary angiography due to non ST elevation myocardial infarction. Procedure in detail: The patient was informed of the risks benefits and alternatives to the intended procedure. He understood which proceed. He is taken to the cardiac catheterization suite in a fasting state. Conscious sedation was administered per protocol and patient was monitored electrocardiographically throughout today's procedure. The right wrist area was prepped and draped in the usual sterile fashion. This area was anesthetized using subcutaneous menstruation of a lidocaine solution. The right radial artery was simply access using modified Seldinger technique and a sheath was placed over guidewire at this site. She still uses facilitate passage of the cardiac catheters for left heart catheterization and selective coronary angiography. Images were taken in multiple orthogonal views prior to removal of the catheters. Based on the findings patient was referred for invasive evaluation of the left circumflex artery. The patient tolerated this portion of the procedure well. There were no immediate complications. Subsequent to evaluation of the left circumflex artery the sheath and catheters were removed. Hemostasis was achieved at the access site using manual pressure. Equipment used: Five Chadian Freeland 4, 5 Chadian JR4, 5 Chadian 3DRC, 5 Chadian straight pigtail Coronary angiography: Left main: Left main was short in caliber. However, it did bifurcate normally into the left anterior descending left circumflex vessels. No significant disease in the left main. Left anterior descending: Left anterior descending was a large vessel which reached the apex. The 1st diagonal was a medium-sized vessel, the 2nd diagonal was a very large vessel and there was some diminutive branches more distally. There was some difficulty seeing the true apex of the LAD due to positioning issues and patient body habitus. However, no obstructive lesions in this distribution Left circumflex: Left circumflex was a dominant vessel producing a large PDA. There was a hazy stenosis in the proximal portion of the vessel just after its takeoff from the left main. Right coronary artery: The right coronary artery could not be selectively engaged. Nonselective imaging suggested a small vessel and it was known to be nondominant based on the anatomy of the left circumflex. Impression: Left dominant coronary system Elevated left ventricular end-diastolic pressure Abnormal proximal circumflex artery, the significance of which is unclear No additional obstructive disease in the visualized vessels Plan: Refer for invasive evaluation of the proximal left circumflex. Hemodynamics Rest Ao:: 130/78 millimeters of mercury Final Ao: 144/88 millimeters of mercury LV: 127/70 millimeters of mercury with left ventricular end-diastolic pressure of 25 Recommendations Recommendations: Medical Therapy and/or Counseling Specimens Specimens: None Radiation Exposure (mGy) q Contrast (mls) q Procedural Complication(s) None Disposition PCU I attest to the content of the Intraoperative Record and any orders documented therein. Any exceptions are noted below. [facility] Card Cath Procedure Codes Cardiac Catheterization Procedure 1: Cardiovascular Cath Procedures: 21471 Coronaries and LHC (+/-LV) Moderate Sedation Procedure 1: Sedation/Anesthesia: 45395 Mod Sedation by the same physician;Init15 Min Child Age 5 & Up Procedure 2: Sedation/Anesthesia: 61077 Mod Sedation by the same physician; Ea [id number] Minutes PG Care Time/CCT Total # of Minutes Spent Total Time Spent with Patient: Total time spent is greater than 50% in coordination of care (as documented) at patient's floor/unit and/or counseling patient:
--- NOTE | 2019-07-20 13:43 | Cardiac Catheterization ---
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 Clinical evaluation leading to the procedure CAD Presenation: Non STEMI Anginal Classification: CCS IV Heart Failure: No Cardiogenic Shock within 24 Hours: No Cardiac Arrest within 24 Hours: No Imaging Studies Past 6 Months: Yes Stress Studies Past 6 Months: No Diagnostic Physicians Name: Ovidio Laruen MD Status: Elective Closure Device Percutaneous Entry Location: Radial Closure Device: Radial Band Recommendations: Medical Therapy and/or Counseling Intraprocedure Events Significant Disection: No Perforation: No Cardiac Cath Procedure Full Procedure Date July 20, 2019 Pre-Procedure Diagnosis Pre-Procedure Diagnosis: Non STEMI AUC Score AUC Score: 8 Post-Procedure Diagnosis Post-Procedure Diagnosis: Moderate CAD Procedure(s) Performed Procedure(s) Performed: Coronary Angiography and IVUS Boating Safety Officer Ovidio Lauren MD Development Chemist(s) none Estimated Blood Loss Estimated Blood Loss: 10cc Medication(s) Medication(s): Fentanyl, Heparin, Nicardipine and Versed Summary of Findings For full details of patient's coronary angiography please see cath report dictated by Dr. Meeks. Briefly, patient found to have a intermediate, hazy mid circumflex stenosis. Decision to proceed with further invasive evaluation. Procedure: -Left main cannulated with JL 3.5 guide -Trash Hauler 50 wire placed into distal circumflex -IVUS catheter placed across stenosis -Pullback revealed moderate mid obstruction, MLA 10.0 mm, calculated stenosis 66%. Mild eccentric calcification, no apparent acute thrombus. -Coronary angiography revealed no apparent complications post wire/catheter removal Summary: 1. Nonobstructive moderate (60-70%) mid circumflex stenosis without acute thrombus. Recommendations: No high risk lesions identified. Continue medical management of ACS per Dr. Meeks. Hemodynamics Rest Ao:: 146/89/112 Final Ao: -- LV: -- Recommendations Recommendations: Medical Therapy and/or Counseling Specimens Specimens: None Radiation Exposure (mGy) 5378 Contrast (mls) 320 Fluids (cc crystalloids) Fluids (cc crystalloids): 130 Drains Drains: none Anesthesia moderate Procedural Complication(s) None Disposition PCU I attest to the content of the Intraoperative Record and any orders documented therein. Any exceptions are noted below. [facility] Card Cath Procedure Codes Therapeutic Services & Ancillary Proc Procedure 1: Cardiovascular Tx and Anc Procedures: 82160 IV Ultrasound (Coronary or Graft) Moderate Sedation Procedure 1: Sedation/Anesthesia: 58851 Mod Sedation by a different physician ;Init15 Min Child Age 5&Up PG Care Time/CCT Total # of Minutes Spent Total Time Spent with Patient: Total time spent is greater than 50% in coordination of care (as documented) at patient's floor/unit and/or counseling patient:
[2019-07-20] MEDS ORDERED: Nursing to Pharmacy Communication ONE ×2 (14:35→17:46)
--- NOTE | 2019-07-20 14:35 | Electrocardiogram Report ---
Test Reason : Blood Pressure : / mmHG Vent. Rate : 098 BPM Atrial Rate : 000 BPM P-R Int : 000 ms QRS Dur : 104 ms QT Int : 358 ms P-R-T Axes : 000 080 047 degrees QTc Int : 457 ms Atrial fibrillation Abnormal ECG When compared with ECG of 19-JUL-2019 10:25, No significant change was found Confirmed by Ovidio Meeks ([id number]) on 07/20/2019 2:35:19 PM Referred By: REFERRED SELF Confirmed By:Jerman Meeks
--- NOTE | 2019-07-20 14:47 | Cardiology Progress Note ---
Date of Service July 20, 2019 Assessment & Plan (1) Chest pain: He did have a non ST elevation myocardial infarction. Chest CT yesterday did not demonstrate any evidence of pulmonary embolus. Curiously, his coronary angiography was relatively unremarkable. He has a left dominant system and of some concern regarding a proximal circumflex lesion. However on invasive evaluation there is no evidence of acute thrombus or significant flow-limiting disease. As such, we will continue medical therapy. He can stay on dual anti- platelet therapy and beta-blockade. We will continue his heparinization here in the hospital and wait for him to be therapeutic on warfarin. (2) Atrial fibrillation: No overt symptoms. Generally good rate control without activity. However, did have some higher rates with activity. We likely will be able to increase his beta-blockade over the course of this admission. Warfarin initiated. (3) Elevated troponin: NSTEMI. Likely related to transient thrombus. Will continue on dual anti-platelet therapy and beta-blockade. We will attempt to increase his atorvastatin as well. Admission and Anticipated Discharge Date Admission Date: July 19, 2019 Subjective This morning pain claims to be feeling well. He has not had any recurrent chest discomfort. He has his usual dyspnea with activity but nothing new. He denies pain at other sites. No dizziness or lightheadedness. No sense of palpitation. Review of Systems Review of Systems: Per HPI Physical Exam Physical Exam: The patient is alert and oriented. Mood and affect appeared normal. He answered all questions appropriately. Obese HEENT: Pupils are equal and reactive to light and accommodation. Extraocular movements are intact. The sclerae are anicteric. Neuro: Cranial nerves intact Lungs: Clear to auscultation bilaterally. He has good air movement without use of accessory muscles. No rales wheezes or rhonchi. Cardiac: Heart demonstrates an irregular rate and rhythm. Normal S1 and S2. No murmurs on examination. Pulses: The patient has palpable radial pulses bilaterally that are equal in intensity Extremities: There was no evidence of hypoperfusion. There is no cyanosis or clubbing. Moderate lower extremity edema to the mid calf with trophic changes bilaterally. Skin: I did not appreciate any other rashes on examination today. Results & Data ([facility]) Vital Signs (Past 12 Hours) Vital Signs Temp Pulse Pulse Resp BP BP Pulse Ox 07/20/19 14:15 81 20 145/96 H 96 07/20/19 14:00 36.5 C 81 22 150/101 H 97 07/20/19 13:41 36.3 C L 88 22 171/91 H 98 07/20/19 13:35 82 20 178/105 H 95 07/20/19 13:20 80 20 155/96 H 91 07/20/19 07:26 95 H 07/20/19 07:15 36.5 C 98 H 18 129/64 96 07/20/19 04:22 36.5 C 87 20 137/80 90 Laboratory Results Abnormal Lab Results 07/19/19 07/19/19 07/19/19 13:35 16:48 16:57 WBC RBC Hgb Hct MCV MCH MCHC RDW Std Deviation RDW Coeff of Rich Plt Count MPV Immature Gran % (Auto) Neut % (Auto) Lymph % (Auto) [place] % (Auto) Eos % (Auto) Baso % (Auto) Immature Gran # (Auto) Neut # (Auto) Lymph # (Auto) [place] # (Auto) Eos # (Auto) Baso # (Auto) Polychromasia Anisocytosis APTT 66.6 H* PTT Ratio 2.4 Activ Coag Time Kaolin Sodium Potassium Chloride Carbon Dioxide Anion Gap BUN Creatinine Est Cr Clr Drug Dosing Est GFR ( Amer) Est GFR (Non-Af Amer) BUN/Creatinine Ratio Glucose POC Glucose 118 H Estimat Average Glucose Hemoglobin A1c Calcium Magnesium Troponin I 0.148 H* Triglycerides Cholesterol LDL Cholesterol, Calc VLDL Cholesterol, Calc HDL Cholesterol Cholesterol/HDL Ratio 07/19/19 07/19/19 07/20/19 20:03 20:57 00:27 WBC RBC Hgb Hct MCV MCH MCHC RDW Std Deviation RDW Coeff of Rich Plt Count MPV Immature Gran % (Auto) Neut % (Auto) Lymph % (Auto) [place] % (Auto) Eos % (Auto) Baso % (Auto) Immature Gran # (Auto) Neut # (Auto) Lymph # (Auto) [place] # (Auto) Eos # (Auto) Baso # (Auto) Polychromasia Anisocytosis APTT 48.1 H* PTT Ratio 1.7 Activ Coag Time Kaolin Sodium Potassium Chloride Carbon Dioxide Anion Gap BUN Creatinine Est Cr Clr Drug Dosing Est GFR ( Amer) Est GFR (Non-Af Amer) BUN/Creatinine Ratio Glucose POC Glucose 140 H Estimat Average Glucose Hemoglobin A1c Calcium Magnesium Troponin I 1.910 H* Triglycerides Cholesterol LDL Cholesterol, Calc VLDL Cholesterol, Calc HDL Cholesterol Cholesterol/HDL Ratio 07/20/19 07/20/19 07/20/19 05:45 05:45 05:45 WBC 8.75 RBC 5.57 Hgb 12.7 L Hct 41.5 L MCV 74.5 L MCH 22.8 L MCHC 30.6 L RDW Std Deviation 50.4 H RDW Coeff of Rich 18.6 H Plt Count 363 MPV 9.5 Immature Gran % (Auto) 0.3 Neut % (Auto) 68.3 Lymph % (Auto) 19.7 [place] % (Auto) 9.7 Eos % (Auto) 1.3 Baso % (Auto) 0.7 Immature Gran # (Auto) 0.03 H Neut # (Auto) 5.98 Lymph # (Auto) 1.72 [place] # (Auto) 0.85 H Eos # (Auto) 0.11 Baso # (Auto) 0.06 Polychromasia 1+ Anisocytosis Present APTT PTT Ratio Activ Coag Time Kaolin Sodium 136 Potassium 3.9 Chloride 105 Carbon Dioxide 25 Anion Gap 6.0 BUN 13 Creatinine 0.85 Est Cr Clr Drug Dosing 128.6 Est GFR ( Amer) 102.3 Est GFR (Non-Af Amer) 88.3 BUN/Creatinine Ratio 15.3 Glucose 135 H POC Glucose Estimat Average Glucose 148 Hemoglobin A1c 6.8 H Calcium 8.5 Magnesium 1.6 L Troponin I 6.070 H* Triglycerides 93 Cholesterol 91 LDL Cholesterol, Calc 36 VLDL Cholesterol, Calc 19 HDL Cholesterol 36 Cholesterol/HDL Ratio 3 07/20/19 07/20/19 07/20/19 05:45 07:39 12:38 WBC RBC Hgb Hct MCV MCH MCHC RDW Std Deviation RDW Coeff of Rich Plt Count MPV Immature Gran % (Auto) Neut % (Auto) Lymph % (Auto) [place] % (Auto) Eos % (Auto) Baso % (Auto) Immature Gran # (Auto) Neut # (Auto) Lymph # (Auto) [place] # (Auto) Eos # (Auto) Baso # (Auto) Polychromasia Anisocytosis APTT 42.7 H PTT Ratio 1.5 Activ Coag Time Kaolin 136 Sodium Potassium Chloride Carbon Dioxide Anion Gap BUN Creatinine Est Cr Clr Drug Dosing Est GFR ( Amer) Est GFR (Non-Af Amer) BUN/Creatinine Ratio Glucose POC Glucose 107 H Estimat Average Glucose Hemoglobin A1c Calcium Magnesium Troponin I Triglycerides Cholesterol LDL Cholesterol, Calc VLDL Cholesterol, Calc HDL Cholesterol Cholesterol/HDL Ratio 07/20/19 14:16 WBC RBC Hgb Hct MCV MCH MCHC RDW Std Deviation RDW Coeff of Rich Plt Count MPV Immature Gran % (Auto) Neut % (Auto) Lymph % (Auto) [place] % (Auto) Eos % (Auto) Baso % (Auto) Immature Gran # (Auto) Neut # (Auto) Lymph # (Auto) [place] # (Auto) Eos # (Auto) Baso # (Auto) Polychromasia Anisocytosis APTT PTT Ratio Activ Coag Time Kaolin Sodium Potassium Chloride Carbon Dioxide Anion Gap BUN Creatinine Est Cr Clr Drug Dosing Est GFR ( Amer) Est GFR (Non-Af Amer) BUN/Creatinine Ratio Glucose POC Glucose 124 H Estimat Average Glucose Hemoglobin A1c Calcium Magnesium Troponin I Triglycerides Cholesterol LDL Cholesterol, Calc VLDL Cholesterol, Calc HDL Cholesterol Cholesterol/HDL Ratio Diagnostic Findings Coronary angiography today did not reveal any obvious culprit lesion for his event yesterday. The right coronary artery was not selectively engaged, but was non dominant. LVEDP was elevated ECG Additional Comments: Atrial fibrillation with occasional high ventricular rates PG Care Time/CCT Total # of Minutes Spent Total Time Spent with Patient: Total time spent is greater than 50% in coordination of care (as documented) at patient's floor/unit and/or counseling p atient: Coding Level of Care Code 39273 Subseq Hosp Care Lvl 3 Diagnoses Chest pain R07.9 Chest pain type: unspecified Atrial fibrillation I48.91 Elevated troponin R79.89 (1) Chest pain Chest pain type: unspecified Qualified Code(s): R07.9 - Chest pain, unspecified
[2019-07-20] MEDS ORDERED: WARFARIN SOD 5 MG TAB PO ONE (17:01)
[2019-07-20] MEDS: NORTRIPTYLINE HCL 10 MG CAP PO SCH (20:06)
[2019-07-20] MEDS ORDERED: COUGH DROP (SUGAR FREE) LOZ 24 LOZ/1 BOX BUCCAL PRN (20:17)
[2019-07-21 00:42] LABS: Partial Thromboplastin Ratio 1.5; Partial Thromboplastin Time 43.1 Seconds (21.0-31.0)
[2019-07-21] MEDS ORDERED: HEPARIN IV BOLUS 4,000 UNITS in SYRINGE 0 ML IV STA (01:23)
[2019-07-21] MEDS: HEPARIN SODIUM/DEXTROSE 25,000 UNITS/500 ML BAG IV SCH ×2 (01:30→08:08)
[2019-07-21 07:41] LABS: INR 1.3 (0.9-1.1); Prothrombin Time 13.2 Seconds (9.0-12.0)
[2019-07-21 07:56] LABS: Partial Thromboplastin Time 55.2 Seconds (21.0-31.0)
[2019-07-21] MEDS: INSULIN ASPART 100 UNITS/ML 3 ML PEN SC SCH ×2 (08:12→12:21)
[2019-07-21] MEDS: ACETAMINOPHEN 500 MG TAB PO SCH (08:16)
[2019-07-21] MEDS: LOSARTAN/HCTZ 50/12.5MG TAB PO SCH (08:17)
[2019-07-21] MEDS: BuPROPion SR 100 MG TABCR PO SCH ×2 (08:17→11:18)
[2019-07-21] MEDS: CHOLECALCIFEROL 1,000 UNITS 25 MCG TAB PO SCH (08:17)
[2019-07-21] MEDS: CLOPIDOGREL BISULFATE 75 MG TAB PO SCH (08:17)
[2019-07-21] MEDS: allopurinoL 300 MG TAB PO SCH (08:17)
[2019-07-21] MEDS: LORATADINE 10 MG TAB PO SCH (08:17)
[2019-07-21] MEDS: TAMSULOSIN HCL 0.4 MG CAP PO SCH (08:17)
[2019-07-21] MEDS: ASPIRIN 81 MG ECTAB PO SCH (08:18)
[2019-07-21] MEDS: ATORVASTATIN 40 MG TAB PO SCH (08:18)
[2019-07-21] MEDS: AMOXICILLIN/CLAVULANATE 875 MG TAB PO SCH (08:18)
[2019-07-21 08:54] LABS: BUN Creatinine Ratio 15.5 (10-20); Calcium 8.5 mg/dl (8.5-10.1); Creatinine Clr Calc Pharmacy 133.2 ml/min; Est GFR (African American) 103.8; Est GFR (Non-African American) 89.6; Potassium 3.4 mmol/L (3.5-5.1)
[2019-07-21] MEDS ORDERED: METOPROLOL SUCC 50MG EXT REL TAB PO SCH (09:00)
[2019-07-21] MEDS ORDERED: POTASSIUM CHLORIDE 20 MEQ TABCR PO SCH (10:15)
[2019-07-21] MEDS ORDERED: FUROSEMIDE 20 MG in SYRINGE 0 ML IV ONE (10:20)
--- NOTE | 2019-07-21 10:26 | Cardiology Progress Note ---
Date of Service July 21, 2019 Assessment & Plan (1) Chest pain: N STEMI. No acute lesion noted on angiography yesterday. No evidence of PE. We will treat him medically. As he does require warfarin for atrial fibrillation I think we can omit aspirin and continue with Plavix in the setting of his recent ACS. Currently on high-dose atorvastatin and metoprolol succinate. (2) Atrial fibrillation: No overt symptoms. He has some higher rates at times with activity. However, I think we could continue on his current dose of metoprolol succinate and follow him as an outpatient. He is therapeutic on warfarin today and this should be continued. (3) Elevated troponin: NSTEMI. Likely related to transient thrombus. Will continue Plavix and warfarin. Continue beta-blockade and high-dose atorvastatin. Stop aspirin. I think he would be safe for discharge today. He otherwise seems to be feeling well and he is therapeutic with respect to his anticoagulation. He will need to be followed in the outpatient setting with respect to his anticoagulation. Admission and Anticipated Discharge Date Admission Date: July 19, 2019 Subjective This morning the patient feels well. He was anxious for discharge. He has not had a recurrent chest discomfort. He did have some mild dyspnea with ambulation but overall felt back to his baseline. No discomfort at the right wrist access site. No sense of palpitation. Review of Systems Review of Systems: Per HPI Physical Exam Physical Exam: The patient is alert and oriented. Mood and affect appeared normal. He answered all questions appropriately. Obese HEENT: Pupils are equal and reactive to light and accommodation. Extraocular movements are intact. The sclerae are anicteric. Neuro: Cranial nerves intact Lungs: Clear to auscultation bilaterally. He has good air movement without use of accessory muscles. No rales wheezes or rhonchi. Cardiac: Heart demonstrates an irregular rate and rhythm. Normal S1 and S2. No murmurs on examination. Extremities: Right wrist access site without ecchymosis. No evidence of cyanosis. Good perfusion. Moderate lower extremity edema to the mid calf with trophic changes bilaterally. Skin: I did not appreciate any other rashes on examination today. Results & Data ([facility]) Vital Signs (Past 12 Hours) Vital Signs Temp Pulse Pulse Resp BP Pulse Ox 07/21/19 09:36 82 07/21/19 09:29 144 H 89 L 07/21/19 08:00 96 H 07/21/19 07:02 36.7 C 91 H 19 128/83 92 07/21/19 04:19 36.6 C 85 21 126/67 90 07/21/19 03:45 99 H 18 84 L 07/20/19 23:39 36.8 C 87 20 129/80 90 Laboratory Results Abnormal Lab Results 07/20/19 07/20/19 07/20/19 12:38 14:16 16:13 PT INR APTT PTT Ratio Activ Coag Time Kaolin 136 Sodium Potassium Chloride Carbon Dioxide Anion Gap BUN Creatinine Est Cr Clr Drug Dosing Est GFR ( Amer) Est GFR (Non-Af Amer) BUN/Creatinine Ratio Glucose POC Glucose 124 H 108 H Calcium 07/20/19 07/20/19 07/21/19 20:05 23:50 06:57 PT 13.2 H INR 1.3 H APTT 43.1 H PTT Ratio 1.5 Activ Coag Time Kaolin Sodium Potassium Chloride Carbon Dioxide Anion Gap BUN Creatinine Est Cr Clr Drug Dosing Est GFR ( Amer) Est GFR (Non-Af Amer) BUN/Creatinine Ratio Glucose POC Glucose 140 H Calcium 07/21/19 07/21/19 07/21/19 06:57 06:58 07:23 PT INR APTT 55.2 H* PTT Ratio 2.0 Activ Coag Time Kaolin Sodium 136 Potassium 3.4 L Chloride 104 Carbon Dioxide 26 Anion Gap 7.0 BUN 13 Creatinine 0.82 Est Cr Clr Drug Dosing 133.2 Est GFR ( Amer) 103.8 Est GFR (Non-Af Amer) 89.6 BUN/Creatinine Ratio 15.5 Glucose 130 H POC Glucose 123 H Calcium 8.5 PG Care Time/CCT Total # of Minutes Spent Total Time Spent with Patient: Total time spent is greater than 50% in coordination of care (as documented) at patient's floor/unit and/or counseling patient: Coding Level of Care Code 89729 Subseq Hosp Care Lvl 2 Diagnoses Chest pain R07.9 Chest pain type: unspecified Atrial fibrillation I48.91 Elevated troponin R79.89 (1) Chest pain Chest pain type: unspecified Qualified Code(s): R07.9 - Chest pain, unspecified
--- NOTE | 2019-07-21 15:24 | Electrocardiogram Report ---
Test Reason : Blood Pressure : / mmHG Vent. Rate : 087 BPM Atrial Rate : 083 BPM P-R Int : 000 ms QRS Dur : 100 ms QT Int : 360 ms P-R-T Axes : 000 -28 074 degrees QTc Int : 433 ms Atrial fibrillation Anterolateral infarct , age undetermined Abnormal ECG When compared with ECG of 20-JUL-2019 14:27, (unconfirmed) Anterior infarct is now Present Anterolateral infarct is now Present Non-specific change in ST segment in Anterior leads Confirmed by Ovidio Meeks ([id number]) on 07/21/2019 3:24:07 PM Referred By: REFERRED SELF Confirmed By:Jerman Meeks
--- NOTE | 2019-07-21 15:35 | Electrocardiogram Report ---
Test Reason : Blood Pressure : / mmHG Vent. Rate : 064 BPM Atrial Rate : 000 BPM P-R Int : 000 ms QRS Dur : 100 ms QT Int : 400 ms P-R-T Axes : 000 067 075 degrees QTc Int : 412 ms Atrial fibrillation Abnormal ECG When compared with ECG of 20-JUL-2019 06:40, Vent. rate has decreased BY 34 BPM Confirmed by Ovidio Meeks ([id number]) on 07/21/2019 3:34:31 PM Referred By: REFERRED SELF Confirmed By:Jerman Meeks
--- NOTE | 2019-07-21 18:30 | Discharge Summary ---
Date of Service July 21, 2019 Admission HPI Per Admitting Provider This is a 69-year-old male with history of hypertension, diabetes, hyperlipidemia and morbid obesity that presents today complaining of chest pain. Patient is good historian. Patient tells me he was having no symptoms until approximately 8:30 this morning. He had just woken up and was moving around the house when he had a sudden onset of substernal chest pressure. This has no radiations. There is no neck, back, or extremity pain. He is not particularly short of breath but admits to some deconditioning. He has had no diaphoresis or palpitations. He has had no nausea or vomiting. The patient took 6 baby aspirin and then presented to the emergency room for further evaluation. In the ER, nitro was held as the patient is on daily Cialis. The chest pain has continued although it is mildly improved at around 11 AM when I interviewed the patient. He does not appear to be in any significant discomfort. Of note, the patient peers to be in atrial fibrillation with a rate of around 100. He denies any history of this in the past. He does not appear to be in any acute cardiopulmonary distress. Of note, the patient has a right hip wound that is open. This is from previously infected hardware in the right hip. The dressings are changed by his daily. There is no bleeding or bruising from this with the patient was told that this would significantly decrease his life expectancy and he is hes itant to undergo any aggressive procedures due to this. Principal Diagnosis chest pain , non occlusive by heart cath Discharge Exam The patient appeared well Vital signs as documented. Lungs are clear to auscultation and percussion. Cardiac exam, Rhythm is regular.. No murmurs, rubs or gallops. Abdominal exam reveals normal bowel sounds, soft non tender, no masses Extremities are nonedematous and both pedal pulses are normal. Neurologic exam is alert and oriented, no focal loss of strength or sensation Skin is without bruises or rashes Psychologically is without concerns for anxiety or depression Discharge Data Allergies Allergy/AdvReac Type Severity Reaction Status Date / Time No Known Drug Allergies Allergy Verified 07/19/19 10:40 Consultations 07/19/19 10:56 ED Decision to Admit Stat 07/19/19 12:59 Consult Cardiology Routine Procedures Performed Operation Date: 07/20/19 10:30 Actual Procedures p Cath, Left with Cors and Vent - Wilbert Meeks MD s IVUS Coronary Single Vessel - Wilbert Lauren MD s Cineradiography w/Routine Exam - Wilbert Meeks MD Ordered Studies 07/19/19 16:46 CT angio chest PE protocol Routine 07/20/19 09:05 CL Cath Imgs for PACS use only Routine 07/21/19 06:40 CL IVUS Coronary Single Vessel Routine Hospital Course (1) Chest pain: Patient with crushing substernal chest pain. Troponins are trending upward. He has ever had previous cardiac work-up outside of a 2D echo in 2017. Patient had left heart catheterization performed 07/[address] Meeks there is no significant stenotic areas or occlusive areas recommending medical management, with dual antiplatelet agents and high potency statin maintaining heart rate control with a beta-néstor transitioning from atenolol to metoprolol succinate Pt history of chronic right-sided CHF and evidence of pulmonary hypertension per previous echo. (2) Atrial fibrillation: This is a new finding, patient transition to metoprolol succinate 100 for better rate control and anti anginal affects. . C [id number] score of 6 based on history of hypertension, CHF, age, and previous history of provoked DVT. Heparin discontinued and warfarin began by cardiology, cardiology will follow warfarin dosing with a recheck on July 24 (3) Non-healing surgical wound: Patient is a right hip wound from a previously infected hardware. He is on Augmentin chronically which we will continue. Ask wound care to follow for dressing changes. (4) Type 2 diabetes mellitus: Check hemoglobin A1c. Will holding metformin after infusion of intravenous dye likely resume in 72 hours, will resume on June on ADA diet with sliding scale insulin. (5) Hypertension: Continue outpatient antihypertensives. losartan/hctz, renal function has been stable after heart catheterization (6) Dyslipidemia: Patient is on atorvastatin increased to 40 mg daily. (7) SABRINA (obstructive sleep apnea): Patient tells me he is on CPAP at home, will continue nightly at his outpatient settings. Total Time Total Time Spent Total Time Spent (In Minutes): It required greater than 30 minutes to prepare this patient for discharge Discharge Plan Discharge Items Patient Disposition: Home - Self-Care Reason For Visit: CHEST PAIN, NEW AF Discharge Diagnosis: coronary artery disease, medical management decision after left heart cath afib, rate controlled with metoprolol and anticoagulated with warfarin->Dr Meeks to follow Activity: Resume your previous activity Non-emergency contact: Concrete Batcher Call non-emergency contact if: you have any medication questions Follow-up/Referrals: [facility] [place] [facility] [place]Provider Group] - 07/25/19 9:30 am (Please, follow up at [facility] Office for labs (PT and INR) on WednesdayJuly 24 at 9:30 am. *The office is located in [address] of [facility], next to this [facility]. If you have any questions, call the office at [phone]. You do NOT need to fast for this lab work.) Wilbert Meeks MD [Physician] - 08/02/19 10:30 am (Please, follow up at [facility] Office with Dr. Meeks on WednesdayAugust 01 at 10:45 am (arrive 10:30 am). *The office is located in [address] of [facility], next to this [facility]. If you need to change this appointment, call the office at [phone]. ) Lewis Menendez, DO [Primary Care Provider] - Diet: Regular and Low Sodium (2gm) Addtl Attending Provider Instructions: please follow a low salt diet, do not restart your metformin until wednesday07/23/19 Medication Instructions: * Warfarin is a medicine prescribed to prevent blood clots * Warfarin will thin your blood and help prevent new clots * Take your medications exactly as directed * Never skip a dose. Never take a double dose. If you miss a dose, take it as soon as you remember * It is important for your doctor to monitor your prothrombin time (PT). This is a lab test * Keep your appointment for lab tests Risk of Adverse Drug Reactions and Interactions: * Warfarin increases your risk of bleeding * The food you eat and other medications you take can affect how Warfarin works in your body * Ask your doctor about daily aspirin therapy * It is very important to talk with your doctor about all of the other medicines, antibiotics, vitamins or herbal products that you are taking * All of your medication must be approved by your doctor, including new medicines, as well as medicines you have taken before you started taking Warfarin Diet: * In order for Warfarin to work properly, it is important to keep your intake of Vitamin K as consistent as possible * You should avoid any sudden change in Vitamin K intake * Report any significant changes in your diet or weight to your doctor Call your Primary Care doctor if you experience any of the following: * Chest Pain * Sudden Shortness of Breath * Rapid or pounding heart beat * Fainting * Dizziness * Cough with blood or bloody sputum * Sweating more than normal * Bruises * Heavy or uncontrolled bleeding * Blood in your urine, stool or vomit * Black or tarry stools Follow Up: It is important for you to keep your follow up appointments with your medical provider. Pending Studies at Discharge: No Stand-Alone Forms: [facility], Smoking Cessation Medications and DC Order Prescriptions: New clopidogrel 75 mg Tablet 75 mg PO QAM Qty: 30 RF: 3 metoprolol succinate 50 mg Tablet Extended Release 24 Hr 100 mg PO QAM Qty: 32 RF: 5 atorvastatin [Lipitor] 40 mg tablet 40 mg PO DAILY Qty: 30 RF: 5 warfarin 5 mg tablet 5 mg PO DAILY Qty: 30 RF: 2 Continued acetaminophen 500 mg capsule 500 mg PO TID RF: 0 clotrimazole-betamethasone 1-0.05 % cream 1 appln TOP BID RF: 0 tamsulosin 0.4 mg capsule 0.4 mg PO BID Qty: 180 RF: 3 testosterone 10 mg/0.5 gram /actuation gel in metered-dose pump 3 pump TD DAILY 30 Days Qty: 60 RF: 5 aspirin 81 mg tablet,delayed release (DR/EC) 81 mg PO QAM RF: 0 (DME) lancets [OneTouch Delica Lancets] 33 gauge misc See Dose Instructions .ROUTE .MEDSUPPLY Qty: 100 RF: 0 sildenafil (pulm.hypertension) 20 mg tablet 20 - 100 mg PO DAILY PRN (Reason: sexual activity) RF: 0 (DME) OneTouch Verio strip See Dose Instructions .ROUTE .MEDSUPPLY Qty: 10 RF: 0 (DME) Relief Knee-High Stocking misc See Dose Instructions .ROUTE .MEDSUPPLY Qty: 2 RF: 0 amoxicillin-pot clavulanate [Augmentin] 875-125 mg tablet 1 tab PO BID Qty: 60 RF: 6 loratadine 10 mg Tablet 10 mg PO DAILY RF: 0 cholecalciferol (vitamin D3) [Vitamin D3] 2,000 unit Capsule 2,000 unit PO QAM RF: 0 azelastine 0.15 % (205.5 mcg) Peel,Non-Aerosol 2 spray INTRANASAL DAILY PRN (Reason: PRN) RF: 0 bupropion HCl [Wellbutrin SR] 100 mg tablet sustained-release 12 hr 100 mg PO BIDM RF: 0 nortriptyline 10 mg capsule 20 - 30 mg PO HS RF: 0 allopurinol [Zyloprim] 300 mg tablet 300 mg PO QAM RF: 0 furosemide 20 mg tablet 20 mg PO DAILY PRN (Reason: Fluid Retention) RF: 0 losartan-hydrochlorothiazide [Hyzaar] 50-12.5 mg tablet 1 tab PO QAM RF: 0 tadalafil [Cialis] 5 mg Tablet 5 mg PO HS RF: 0 metformin [Glucophage XR] 500 mg tablet extended release 24 hr 1,000 mg PO BIDM Qty: 0 RF: 0 Discontinued atenolol [Tenormin] 50 mg tablet 50 mg PO QAM RF: 0 Discharge Orders: Discharge Order (Routine); Ordered 07/21/19 Ordered By: Harrison Parra/Other Patient Handouts: Hyperglycemia, Hypoglycemia Admission Data Admit Date/Time: 07/19/19 11:51 Attending Provider: Harrison Lewis Admit Provider: Anton Farris Primary Care Provider: Lewis Menendez Other Providers: Anton Farris ; Wilbert Meeks Other Interventions: Discharge Summary Assessment (RN) Last Done: 07/21/19 13:12 DC Date/Time DO NOT enter until pt leaves facility: 07/21/19 13:40 Coding Level of Care Code D/C Day Management >30 mins Diagnoses Chest pain R07.9 Atrial fibrillation I48.91 Non-healing surgical wound T81.89XD Encounter type: subsequent encounter Type 2 diabetes mellitus E11.9 Hypertension I10 Hypertension type: unspecified Dyslipidemia E78.5 SABRINA (obstructive sleep apnea) G47.33
== END 2019-07-21 13:40 | disposition home or self-care (01) ==
LOC: ED 09:42 → 2S 09:42 → SUATTDRO 11:51 → 2S 12:27

== ENCOUNTER 2024-02-07 17:49 | Inpatient (IN) ==
--- NOTE | 2024-02-07 17:55 | ED Triage Note ---
Date of Service February 07, 2024 Provider in Triage Author: Dez Flores History of Present Illness This patient was briefly evaluated while in triage. An abbreviated physical exam was performed. This patient is a 73-year-old Male who presents to the ED for evaluation "infected left foot" sent for admission by wound care and endocrine Physical Exam GENERAL: NAD CARDIOVASCULAR: RRR RESPIRATORY: CTA EXT: left foot in walking shoe, unable to see wounds/skin Initial orders for labs and / or imaging were placed and patient was placed in the waiting area until a bed is available. Please see further documentation for the full ED course. MDM / Impression Impression Impression: 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
[2024-02-07 18:28] LABS: Basophils # (auto) 0.05 K/uL (0.00-0.20); Basophils % (auto) 0.5 %; Eosinophils # (auto) 0.11 K/uL (0.00-0.50); Eosinophils % (auto) 1.1 %; Hematocrit (blood only) 46.9 % (42.0-52.0); Hemoglobin 15.5 g/dl (14.0-18.0); Immature Granulocytes # (auto) 0.06 K/uL (0.01-0.20); Immature Granulocytes % (auto) 0.6 %; Lymphocytes # (auto) 2.43 K/uL (1.20-3.40); Lymphocytes % (auto) 24.5 %; Mean Corpuscular Hemoglobin 28.7 pg (25.0-34.0); Mean Corpuscular Volume 86.9 fL (80.0-100.0); Mean Platelet Volume 9.8 fL (9.4-12.4); Monocytes # (auto) 0.91 K/uL (0.11-0.59); Monocytes % (auto) 9.2 %; Neutrophils # (auto) 6.37 K/uL (1.40-6.50); Neutrophils % (auto) 64.1 %; Platelet Count 285 K/uL (130-400); RDW Coefficient of Variation 14.3 % (11.5-14.5); RDW Standard Deviation 45.8 fL (36.4-46.3); White Blood Count 9.93 K/ul (4.8-10.8)
[2024-02-07 18:41] LABS: Alanine Aminotransferase 14 U/L (7-52); Albumin Globulin Ratio 1.2 (0.9-2); Albumin Level 3.8 gm/dl (3.4-5.0); Alkaline Phosphatase 83 U/L (34-104); Anion Gap 9 (3-11); Aspartate Aminotransferase 18 U/L (13-39); BUN Creatinine Ratio 14.5 (10-20); Bilirubin,Total 0.8 mg/dl (0.2-1.0); Blood Urea Nitrogen 12 mg/dl (6-23); Calcium 9.5 mg/dl (8.6-10.3); Carbon Dioxide 24 mmol/L (21-32); Chloride 106 mmol/L (98-107); Globulin 3.3 gm/dl (2.5-4.0); Glucose 123 mg/dl (70-99(Fasting)); Potassium 4.1 mmol/L (3.5-5.1); Sodium 139 mmol/L (136-145); Total Protein 7.1 gm/dl (6.0-8.3)
[2024-02-07 18:49] LABS: INR 1.1 (0.9-1.1); Partial Thromboplastin Ratio 1.1; Partial Thromboplastin Time 30 Seconds (21-31); Prothrombin Time 11.8 Seconds (9.0-12.0)
--- NOTE | 2024-02-07 19:37 | XRay Report ---
EXAM: XR foot LT min 3V routine CLINICAL HISTORY: LEFT FOOT INFECTION, DIABETIC ULCERS WTW TECHNIQUE: X-ray images of the left foot were obtained in anteroposterior (AP), lateral, and oblique projections. COMPARISON: No prior studies are available for comparison. FINDINGS: Bone Structure: Bone structure is normal and aligned. No evidence of fracture or dislocation. No osseous lesions or abnormalities are identified. A small calcific focus noted along the 5th metatarsal head is likely of benign etiology. Joint Spaces: Mild osteoarthritic changes of the intertarsal and 1st metatarsophalangeal joint are evident by narrow joint spaces and tiny osteophytes. Soft Tissues: Mild soft tissue swelling /edema of the foot. Linear vascular calcification at lower leg and foot. Additional Findings: Tiny erupting calcaneal spur is noted. IMPRESSION: 1. No evidence of acute fracture, or dislocation. No radiological evidence of osteomyelitis. 2. Mild soft tissue swelling /edema of the foot. 3. Mild osteoarthritic changes of the intertarsal and 1st metatarsophalangeal joint. 4. Tiny erupting calcaneal spur is noted. Disclaimer: A subtle bone abnormality or fracture may not be readily apparent on X-rays, thus clinical correlation and further imaging including follow-up CT, MRI, or follow-up X-rays are advised as needed. Electronically signed by Dnaielito Brumfield 02-07-2024 7:36 PM
--- NOTE | 2024-02-07 20:53 | Emergency Department Note ---
Impression & Plan 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 ED Provider Note Provider: Dez Flores MD DATE OF SERVICE: 02/07/2024 CHIEF COMPLAINT: Left foot infection HISTORY OF PRESENT ILLNESS: Patient is a 73-year-old gentleman history of diabetes, A-fib on Eliquis, diabetic neuropathy and type 2 diabetes, BPH, and gout presenting here today referred from endocrinology for evaluation of infection of his left foot/toes. Patient states about 3 weeks ago he dropped some pulling water on his left great toe and left second toe. No issues until just over a week ago when he noticed some redness and a small wound at the tip. Seen at wound clinic last week. Culture from the toe did not grow anything. No fevers but worsening extending redness. Endocrinology recommended patient come here for admission. He is chronically on Augmentin twice daily for suppression of infection of the infected prior left hip wound. Patient significant tenderness of the left toe. Denies fevers. PAST MEDICAL HISTORY: As noted above MEDICATIONS: Reviewed home medications SOCIAL HISTORY: Lives at home with PHYSICAL EXAM: GENERAL: alert and oriented in no acute distress on stretcher Head: normocephalic and atraumatic EYES: No injection, discharge or icterus. NECK: Trachea midline. ENT: Mucous membranes pink and moist. LUNGS: Airway patent. No retractions or tachypnea HEART: Regular rate and rhythm. SKIN: Acyanotic, warm, dry EXTREMITIES: Patient with 1-2+ swelling of the lower extremities. Chronic skin changes of the calves bilaterally. The left foot has some erythema on the whole plantar aspect that looks more chronic with scaling skin there. The dorsum of the foot has redness extending from the left great toe and second toe towards the mid dorsum of the foot. There is some dusky and avascular skin at the distal tip of the left great toe approximately a centimeter and a half area of ulceration. There is small ulceration overlying the first left MTP joint with some granulation tissue. NEUROLOGICAL: Moves all extremities no aphasia. No facial droop or slurred speech. Ambulatory. Patient's laboratory studies and imaging reviewed. Differential includes Cellulitis, abscess, MRSA infection, DVT, necrotizing fasciitis, dermatitis, drug eruption, allergic reaction, as well as other pathologies. IMPRESSION/MEDICAL DECISION MAKING: Patient on chronic and biotic suppression with Augmentin. Failing due to worsening redness of the foot. No leukocytosis. ESR minimally elevated. CRP sent as well. Lactate Domenica elevated but I doubt sepsis. No fever. Seems to be cellulitis in the left foot and worsened by his underlying diabetes. Evidently has resistance to the Augmentin given the worsening. X-ray without clear evidence of osteomyelitis. Obviously has some devascularized unfortunate skin here and I do think he is at high risk for worsening especially with his diabetes. Referred by endocrine and a surface culture was taken from but I am unsure if this is a great sample as there is no purulence to it. Will cover with a dose of daptomycin for MRSA coverage. Will expand coverage with a dose of Zosyn from the Unasyn he is normally on. Patient referred here for admission for treatment of this and do believe it is reasonable given his multiple comorbidities and the poor look of the foot/toe with worsening infection. Patient was agreeable. Hospitalist contacted. DIAGNOSIS: Diabetic left foot ulcer and cellulitis DISPOSITION: Hospitalist will evaluate Patient was agreeable with this plan. Past Med/Surg History Problem List (Updated 02/07/24 @ 21:22 by Dez Flores M.D.) 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 (Acute) Cellulitis (Acute) Diabetic ulcer of toe of left foot (Acute) Burn of left great toe (Acute) Class 3 obesity Hypogonadotropic hypogonadism in male Hypertension (Chronic) Coronary heart disease Atrial fibrillation Warfarin anticoagulation Diabetes type 2, controlled (Chronic) Diabetic peripheral neuropathy associated with type 2 diabetes mellitus (Chronic) Loss of protective sensation of skin of foot SABRINA (obstructive sleep apnea) Anemia Dyslipidemia Insomnia Chronic venous insufficiency (Chronic) 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) Non-healing surgical wound (Chronic) Anxiety (Chronic) BPH (benign prostatic hyperplasia) (Chronic) Gastroesophageal reflux disease (Chronic) Gout (Chronic) Medical History Tremor History of myocardial infarction Non-ST elevated VA Alopecia Atypical nevi Chronic pain Cor pulmonale (chronic) Degenerative joint disease involving multiple joints on both sides of body Erectile dysfunction Tinea pedis Vitamin D deficiency Surgical History S/P total knee arthroplasty S/P tonsillectomy H/O knee surgery H/O inguinal hernia repair History of hip surgery H/O hernia repair Hx of cholecystectomy History of bladder surgery Family History Mother FH: Parkinson's disease Breast cancer Father Coronary heart disease Hypertension Cardiac disease Melanoma Skin cancer Unknown Melanoma Denies family history of Ovarian cancer Prostate cancer Myocardial infarction Lung cancer Colorectal cancer Social History Smoking Status: Never smoker Second Hand Exposure: No; Do You Dip or Chew Tobacco: No; Hx Alcohol Use: No Hx Substance Use: No Preferred Language: Polish Communication Ability: Effective Visual Impairment: Limited Hearing Ability: Normal Digital Account Executive Required: No Beliefs That Will Affect Care: None marital status: Current Living Situation: Spouse current occupational status: retired 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 Feels Safe at Home: Yes Childhood Exposure to Second-Hand Smoke: Yes Diet: diabetic caffeine: Yes Dental Care, Regularly: No Physical Activity Frequency: Does not Exercise Seatbelt Use: always Sunscreen Use: Yes Do you think of yourself as: straight/heterosexual Assistive Devices: Cane and Glasses Allergies Allergies Allergy/AdvReac Type Severity Reaction Status Date / Time No Known Drug Allergies Allergy Verified 02/07/24 13:44 Home Meds Home Medications Medication Instructions Recorded Confirmed cholecalciferol (vitamin D3) 50 2,000 unit PO QAM 03/03/18 02/07/24 mcg (2,000 unit) capsule (Vitamin D3) lancets 33 gauge (OneTouch Delica #100 ea 11/04/18 02/07/24 Lancets) docusate sodium 100 mg capsule 100 mg PO BID PRN Constipation 10/21/20 02/07/24 (Colace) mecobalamin (vitamin B12) 1 tab PO DAILY 02/06/22 02/07/24 pyridoxine (vitamin B6) 1 tab PO DAILY 02/06/22 02/07/24 torsemide 20 mg tablet 10 mg PO DAILY PRN Fluid Retention 05/08/22 02/07/24 loratadine 10 mg tablet 10 mg PO DAILY PRN ALLERGIES 10/08/22 02/07/24 diclofenac sodium 1 % topical gel 2 g topical QID PRN Pain 02/05/23 02/07/24 (Arthritis Pain (diclofenac)) tadalafil 5 mg tablet (Cialis) 5 mg PO DAILY PRN Other 11/13/23 02/07/24 Previous Rx's Medication Instructions Recorded ascorbate calcium (vitamin C) 500 500 mg PO DAILY #30 tabs 07/11/20 mg tablet ferrous sulfate 325 mg (65 mg 325 mg PO DAILY #30 tabs 07/11/20 iron) tablet mupirocin 2 % topical ointment 1 applic topical TID PRN scrotal 11/05/22 sores #22 grams OneTouch Verio test strips (blood #100 ea 12/01/22 sugar diagnostic) metoprolol succinate 50 mg 50 mg PO QAM #90 tabs 03/10/23 tablet,extended release 24 hr apixaban 5 mg tablet 5 mg PO BID #180 tabs 03/17/23 empagliflozin 10 mg tablet 10 mg PO DAILY #90 tabs 06/14/23 (Jardiance) needle (disp) 21 G 21 gauge x 1 #100 ea 09/16/23 1/2" (BD Eclipse Luer-Jesus) testosterone cypionate 200 mg/mL 100 mg (0.5 mL) subcut Q10D #2 mL 09/16/23 intramuscular oil syringe with needle 3 mL 20 gauge #100 ea 09/27/23 x 1 1/2" (BD Luer-Jesus Syringe) nystatin 100,000 unit/gram topical 1 applic topical DAILY 30 days #60 11/02/23 powder grams dutasteride 0.5 mg capsule 0.5 mg PO DAILY #90 caps 11/09/23 (Avodart) hydrocortisone 2.5 % topical cream 1 applic KS DAILY PRN hemorrhoids 11/09/23 with perineal applicator #30 grams (Anusol-HC) magnesium oxide 400 mg PO DAILY #30 tabs 11/13/23 bupropion HCl 300 mg 24 hr tablet, 300 mg PO DAILY #30 tabs 11/30/23 extended release losartan 25 mg tablet 25 mg PO DAILY #90 tabs 12/09/23 metformin 500 mg tablet,extended 1,000 mg (2 x 500 mg) PO BID #360 12/20/23 release 24 hr tabs tamsulosin 0.4 mg capsule 0.4 mg PO BID #180 caps 12/27/23 atorvastatin 80 mg tablet 80 mg PO DAILY #90 tabs 12/28/23 allopurinol 300 mg tablet 300 mg PO QAM #90 tabs 12/31/23 naltrexone 50 mg tablet 25 mg (1/2 x 50 mg) PO DAILY #30 01/06/24 tabs Results & Data (ED) Vital Signs Vital Signs - 24 hr 02/07/24 17:50 02/07/24 20:40 02/07/24 20:50 Temperature 36.6 C Temperature Source Temporal Artery Scan Pulse Rate 81 66 Pulse Rate [Apical] 73 Respiratory Rate 18 20 Respiratory Effort / Characteristics Non-Labored Spontaneous Respiratory Depth Normal Respiratory Pattern Regular Blood Pressure 181/88 H Blood Pressure [Right Arm] 179/93 H Blood Pressure Mean 119 Blood Pressure Mean [Right Arm] 121 Pulse Oximetry 97 98 Oxygen Delivery Method Room Air Room Air Sepsis Recent Fever Within 48 Hours No Sepsis New/Unexplained Change in Mental Status N/A Sepsis Action Taken by Nursing No Action Required Laboratory Data 02/07/24 18:10 02/07/24 18:10 Lab Results 02/07/24 02/07/24 Range/Units 18:10 20:20 WBC 9.93 (4.8-10.8) K/ul RBC 5.40 (4.70-6.10) M/uL Hgb 15.5 (14.0-18.0) g/dl Hct 46.9 (42.0-52.0) % MCV 86.9 (80.0-100.0) fL MCH 28.7 (25.0-34.0) pg MCHC 33.0 (32.0-36.0) g/dL RDW Std Deviation 45.8 (36.4-46.3) fL RDW Coeff of Rich 14.3 (11.5-14.5) % Plt Count 285 (130-400) K/uL MPV 9.8 (9.4-12.4) fL Immature Gran % (Auto) 0.6 % Neut % (Auto) 64.1 % Lymph % (Auto) 24.5 % [place] % (Auto) 9.2 % Eos % (Auto) 1.1 % Baso % (Auto) 0.5 % Neut # (Auto) 6.37 (1.40-6.50) K/uL Lymph # (Auto) 2.43 (1.20-3.40) K/uL [place] # (Auto) 0.91 H (0.11-0.59) K/uL Eos # (Auto) 0.11 (0.00-0.50) K/uL Baso # (Auto) 0.05 (0.00-0.20) K/uL Immature Gran # (Auto) 0.06 (0.01-0.20) K/uL ESR 49 H (0-20) mm/hr PT 11.8 (9.0-12.0) Seconds INR 1.1 (0.9-1.1) APTT 30 (21-31) Seconds PTT Ratio 1.1 Sodium 139 (136-145) mmol/L Potassium 4.1 (3.5-5.1) mmol/L Chloride 106 (98-107) mmol/L Carbon Dioxide 24 (21-32) mmol/L Anion Gap 9 (3-11) BUN 12 (6-23) mg/dl Creatinine 0.83 (0.6-1.4) mg/dl Est Cr Clr Drug Dosing Not Reportable eGFR 91.84 BUN/Creatinine Ratio 14.5 (10-20) Glucose 123 H (70-99(Fasting)) mg/dl Lactate 2.5 H* (0.4-2.0) mmol/L Calcium 9.5 (8.6-10.3) mg/dl Total Bilirubin 0.8 (0.2-1.0) mg/dl AST 18 (13-39) U/L ALT 14 (7-52) U/L Alkaline Phosphatase 83 (34-104) U/L C-Reactive Protein 4.05 H (0-0.5) mg/dl Total Protein 7.1 (6.0-8.3) gm/dl Albumin 3.8 (3.4-5.0) gm/dl Globulin 3.3 (2.5-4.0) gm/dl Albumin/Globulin Ratio 1.2 (0.9-2) Administered Medications Daptomycin 425 mg/ Syringe 8.5 mls @ 4.25 mls/min IV Q24H [facility]; Protocol Stop: 02/09/24 21:29 Last Admin: 02/07/24 22:27 Dose: 4.25 mls/min Documented By: WILFRIDO Discontinued Medications Piperacillin Sod/Tazobactam Sod (Zosyn) 4.5 gm in 100 mls @ 200 mls/hr IV NOW ONE; Protocol Stop: 02/07/24 21:46 Last Infusion: 02/07/24 22:00 Dose: Infused Documented By: Admin: 02/07/24 21:29 Dose: 200 mls/hr Documented By: WILFRIDO Imaging Data Radiologist's Impression: Foot X-Ray 02/07/24 17:55 EXAM: XR foot LT min 3V routine CLINICAL HISTORY: LEFT FOOT INFECTION, DIABETIC ULCERS WTW TECHNIQUE: X-ray images of the left foot were obtained in anteroposterior (AP), lateral, and oblique projections. COMPARISON: No prior studies are available for comparison. FINDINGS: Bone Structure: Bone structure is normal and aligned. No evidence of fracture or dislocation. No osseous lesions or abnormalities are identified. A small calcific focus noted along the 5th metatarsal head is likely of benign etiology. Joint Spaces: Mild osteoarthritic changes of the intertarsal and 1st metatarsophalangeal joint are evident by narrow joint spaces and tiny osteophytes. Soft Tissues: Mild soft tissue swelling /edema of the foot. Linear vascular calcification at lower leg and foot. Additional Findings: Tiny erupting calcaneal spur is noted. IMPRESSION: 1. No evidence of acute fracture, or dislocation. No radiological evidence of osteomyelitis. 2. Mild soft tissue swelling /edema of the foot. 3. Mild osteoarthritic changes of the intertarsal and 1st metatarsophalangeal joint. 4. Tiny erupting calcaneal spur is noted. Disclaimer: A subtle bone abnormality or fracture may not be readily apparent on X-rays, thus clinical correlation and further imaging including follow-up CT, MRI, or follow-up X-rays are advised as needed. Electronically signed by Danielito Brumfield 02-07-2024 7:36 PM Discharge Plan Visit Data Chief Complaint: Illness Stated Complaint: LEFT FOOT INJURY ED Provider: Dez Flores Discharge Problem: 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 Patient Disposition: Being Evaluated by Hospitalist Forms Stand Alone Forms: My [employer] Prescriptions Prescriptions: No Action nystatin 100,000 unit/gram powder 1 applic topical DAILY 30 Days Qty: 60 2RF Rx Instructions: Apply to skin around wound daily with dressing changes. ferrous sulfate 325 mg (65 mg iron) tablet 325 mg PO DAILY Qty: 30 0RF ascorbate calcium (vitamin C) 500 mg tablet 500 mg PO DAILY Qty: 30 0RF (DME) OneTouch Verio test strips Strip See Dose Instructions .ROUTE .MEDSUPPLY Qty: 100 3RF Rx Instructions: Test blood sugars once a day metoprolol succinate 50 mg tablet extended release 24 hr 50 mg PO QAM Qty: 90 5RF Jardiance 10 mg tablet 10 mg PO DAILY Qty: 90 3RF (DME) BD Eclipse Luer-Jesus 21 gauge x 1 1/2" needle See Rx Instructions .Route Qty: 100 1RF Rx Instructions: use 1 with each testosterone injection testosterone cypionate 200 mg/mL oil 100 mg subcut Q10D Qty: 2 5RF Rx Instructions: injection (DME) syringe with needle [BD Luer-Jesus Syringe] 3 mL 20 gauge x 1 1/2" syringe See Rx Instructions .Route Qty: 100 0RF Rx Instructions: use a new syringe with each testosterone injection bupropion HCl 300 mg tablet extended release 24 hr 300 mg PO DAILY Qty: 30 3RF losartan 25 mg tablet 25 mg PO DAILY Qty: 90 3RF metformin 500 mg tablet extended release 24 hr 1,000 mg PO BID Qty: 360 1RF tamsulosin 0.4 mg capsule 0.4 mg PO BID Qty: 180 3RF atorvastatin 80 mg tablet 80 mg PO DAILY Qty: 90 3RF allopurinol 300 mg tablet 300 mg PO QAM Qty: 90 3RF (DME) lancets [Big SixTouch Delica Lancets] 33 gauge misc See Dose Instructions .ROUTE .MEDSUPPLY Qty: 100 Rx Instructions: USE TO TEST TWICE DAILY docusate sodium [Colace] 100 mg capsule 100 mg PO BID PRN (Reason: Constipation) diclofenac sodium [Arthritis Pain (diclofenac)] 1 % gel 2 g topical QID PRN (Reason: Pain) Rx Instructions: apply to single elbow, wrist or hand; for hand includes palm/fingers/back of hand apixaban 5 mg tablet 5 mg PO BID Qty: 180 3RF mupirocin 2 % ointment 1 applic topical TID PRN (Reason: scrotal sores) Qty: 22 6RF hydrocortisone [Anusol-HC] 2.5 % cream with perineal applicator 1 applic KS DAILY PRN (Reason: hemorrhoids) Qty: 30 0RF dutasteride [Avodart] 0.5 mg capsule 0.5 mg PO DAILY Qty: 90 3RF torsemide 20 mg tablet 10 mg PO DAILY PRN (Reason: Fluid Retention) Rx Instructions: PATIENT STATES HE TAKES 1/2 TABLET mecobalamin (vitamin B12) 1 tab PO DAILY pyridoxine (vitamin B6) 1 tab PO DAILY naltrexone 50 mg tablet 25 mg PO DAILY Qty: 30 1RF Hold Instructions: needs appt for refill Rx Instructions: 1/2 tablet by Mouth DAILY cholecalciferol (vitamin D3) [Vitamin D3] 2,000 unit Capsule 2,000 unit PO QAM loratadine 10 mg tablet 10 mg PO DAILY PRN (Reason: ALLERGIES) tadalafil [Cialis] 5 mg tablet 5 mg PO DAILY PRN (Reason: Other) magnesium oxide 400 mg magnesium tablet 400 mg PO DAILY Qty: 30 0RF Referrals Referrals: Lewis Menendez DO [Primary Care Provider] -
[2024-02-07] MEDS: PIPERACILLIN/TAZOBACTAM 4.5 GM/100 ML BAG IV ONE (21:29)
[2024-02-07 21:55] LABS: C Reactive Protein 4.05 mg/dl (0-0.5)
[2024-02-07] MEDS: DAPTOmycin 425 MG in SYRINGE 0 ML IV SCH (22:27)
--- NOTE | 2024-02-07 23:13 | History & Physical Report ---
Date of Service February 07, 2024 Assessment & Plan (1) 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: Plan: 73yo male with DM sustained burn appx 3 weeks ago - has had worsening redness and ulceration ongoing. Patient is on Augmentin for chronic suppressive therapy for a hip infection. NO systemic evidence of infection Suspect that ulcers on plantar surface of patient's foot are neuropathic ulcerations. He reports that he typically does not wear shoes at home but his does check his feet on occasion -Admit to medical -Follow culture sent from the ER -Monitor redness of left foot for progression -Wound care daily -Empiric treatment with Daptomycin and Zosyn for now -Lotrinin BID for suspected fungal component (2) Atrial fibrillation: Plan: Rate controlled, patient anticoagulated on Apixaban - was transitioned from Coumadin several months ago by Cardiology. Is tolerating Apixaban. -Continue Apixaban -Continue Metoprolol (3) SABRINA (obstructive sleep apnea): Plan: Chronic. Patient is compliant with CPAP -Continue CPAP qHS -Patient may use own machine Plan BPH -Continue Flomax Hypertension -Continue Losartan -Continue Metoprolol DM -Lantus 7u BID -ISS Gout -Continue Allopurinol History of Present Illness Chief Complaint: foot infection Primary Care Provider: DO Timohty Duron John is a 73yo male with history of DM, HTN, CAD, GERD and SABRINA on CPAP presenting with left foot infection. Patient spilled some boiling water on his foot three weeks ago which mostly hit his left great toe and 2nd toe. Since then he has had worsening redness and ulceration of his plantar surface of his 1st and 2nd toe. Patient had right hip replacement in 2017 which unfortunately became infected - he has daily wound care and is on chronic suppressive therapy with Augmentin Patient denies fever, chills, chest pain, nausea, vomiting, diarrhea. No additional complaints at this time In the ER patient afebrile, hypertensive otherwise HD stable Allergies Allergy/AdvReac Type Severity Reaction Status Date / Time No Known Drug Allergies Allergy Verified 02/07/24 13:44 Home Medications Medication Instructions Recorded Confirmed Type cholecalciferol (vitamin D3) 50 2,000 unit PO QAM 03/03/18 02/07/24 History mcg (2,000 unit) capsule (Vitamin D3) lancets 33 gauge ([facility] #100 ea 11/04/18 02/07/24 History Lancets) ascorbate calcium (vitamin C) 500 500 mg PO DAILY #30 tabs 07/11/20 02/07/24 Rx mg tablet ferrous sulfate 325 mg (65 mg 325 mg PO DAILY #30 tabs 07/11/20 02/07/24 Rx iron) tablet docusate sodium 100 mg capsule 100 mg PO BID PRN Constipation 10/21/20 02/07/24 History (Colace) mecobalamin (vitamin B12) 1 tab PO DAILY 02/06/22 02/07/24 History pyridoxine (vitamin B6) 1 tab PO DAILY 02/06/22 02/07/24 History torsemide 20 mg tablet 10 mg PO DAILY PRN Fluid Retention 05/08/22 02/07/24 History loratadine 10 mg tablet 10 mg PO DAILY PRN ALLERGIES 10/08/22 02/07/24 History mupirocin 2 % topical ointment 1 applic topical TID PRN scrotal 11/05/22 02/07/24 Rx sores #22 grams OneTouch Verio test strips (blood #100 ea 12/01/22 02/07/24 Rx sugar diagnostic) diclofenac sodium 1 % topical gel 2 g topical QID PRN Pain 02/05/23 02/07/24 History (Arthritis Pain (diclofenac)) metoprolol succinate 50 mg 50 mg PO QAM #90 tabs 03/10/23 02/07/24 Rx tablet,extended release 24 hr apixaban 5 mg tablet 5 mg PO BID #180 tabs 03/17/23 02/07/24 Rx empagliflozin 10 mg tablet 10 mg PO DAILY #90 tabs 06/14/23 02/07/24 Rx (Jardiance) needle (disp) 21 G 21 gauge x 1 #100 ea 09/16/23 02/07/24 Rx 1/2" (BD Eclipse Luer-Jesus) testosterone cypionate 200 mg/mL 100 mg (0.5 mL) subcut Q10D #2 mL 09/16/23 02/07/24 Rx intramuscular oil syringe with needle 3 mL 20 gauge #100 ea 09/27/23 02/07/24 Rx x 1 1/2" (BD Luer-Jesus Syringe) nystatin 100,000 unit/gram topical 1 applic topical DAILY 30 days #60 11/02/23 02/07/24 Rx powder grams dutasteride 0.5 mg capsule 0.5 mg PO DAILY #90 caps 11/09/23 02/07/24 Rx (Avodart) hydrocortisone 2.5 % topical cream 1 applic HI DAILY PRN hemorrhoids 11/09/23 02/07/24 Rx with perineal applicator #30 grams (Anusol-HC) magnesium oxide 400 mg PO DAILY #30 tabs 11/13/23 02/07/24 Rx tadalafil 5 mg tablet (Cialis) 5 mg PO DAILY PRN Other 11/13/23 02/07/24 History bupropion HCl 300 mg 24 hr tablet, 300 mg PO DAILY #30 tabs 11/30/23 02/07/24 Rx extended release losartan 25 mg tablet 25 mg PO DAILY #90 tabs 12/09/23 02/07/24 Rx metformin 500 mg tablet,extended 1,000 mg (2 x 500 mg) PO BID #360 12/20/23 02/07/24 Rx release 24 hr tabs tamsulosin 0.4 mg capsule 0.4 mg PO BID #180 caps 12/27/23 02/07/24 Rx atorvastatin 80 mg tablet 80 mg PO DAILY #90 tabs 12/28/23 02/07/24 Rx allopurinol 300 mg tablet 300 mg PO QAM #90 tabs 12/31/23 02/07/24 Rx naltrexone 50 mg tablet 25 mg (1/2 x 50 mg) PO DAILY #30 01/06/24 02/07/24 Rx tabs amoxicillin 875 mg-potassium 1 tab PO BID 02/07/24 02/07/24 History clavulanate 125 mg tablet Past Med/Surg History Problem List 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 (Acute) Cellulitis (Acute) Diabetic ulcer of toe of left foot (Acute) Burn of left great toe (Acute) Class 3 obesity Hypogonadotropic hypogonadism in male Hypertension (Chronic) Coronary heart disease Atrial fibrillation Warfarin anticoagulation Diabetes type 2, controlled (Chronic) Diabetic peripheral neuropathy associated with type 2 diabetes mellitus (Chronic) Loss of protective sensation of skin of foot SABRINA (obstructive sleep apnea) Anemia Dyslipidemia Insomnia Chronic venous insufficiency (Chronic) 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) Non-healing surgical wound (Chronic) Anxiety (Chronic) BPH (benign prostatic hyperplasia) (Chronic) Gastroesophageal reflux disease (Chronic) Gout (Chronic) Medical History Tremor History of myocardial infarction Non-ST elevated RI Alopecia Atypical nevi Chronic pain Cor pulmonale (chronic) Degenerative joint disease involving multiple joints on both sides of body Erectile dysfunction Tinea pedis Vitamin D deficiency Surgical History S/P total knee arthroplasty b/l, then b/l revisions S/P tonsillectomy H/O knee surgery x4 H/O inguinal hernia repair 2016 History of hip surgery 04/2016 and 05/2016 H/O hernia repair 2016 Hx of cholecystectomy History of bladder surgery Family History Mother FH: Parkinson's disease Breast cancer Father Coronary heart disease Hypertension Cardiac disease Melanoma Skin cancer Unknown Melanoma Denies family history of Ovarian cancer Prostate cancer Myocardial infarction Lung cancer Colorectal cancer Social History Smoking Status: Never smoker Second Hand Exposure: No; Do You Dip or Chew Tobacco: No; Hx Alcohol Use: No Hx Substance Use: No Preferred Language: Kinyarwanda Communication Ability: Effective Visual Impairment: Limited Hearing Ability: Normal Picture Copyist Required: No Beliefs That Will Affect Care: None marital status: Current Living Situation: Spouse current occupational status: retired 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 Other Information That Helps Us Care for You: No Feels Safe at Home: Yes Safety Concerns: Feels Safe At This Time Childhood Exposure to Second-Hand Smoke: Yes Diet: diabetic caffeine: Yes Dental Care, Regularly: No Physical Activity Frequency: Does not Exercise Seatbelt Use: always Sunscreen Use: Yes Do you think of yourself as: straight/heterosexual Assistive Devices: Cane Review of Systems Review of Systems: All systems reviewed & are unremarkable except as noted in HPI & below Physical Exam Physical Exam: General: patient resting comfortably, NAD, non-toxic in appearance, AA&O x 4 HEENT: NC/AT, PERRL, EOMI, anicteric sclera, conjunctiva without injection, external ear normal to inspection and nontender, nares patent, moist mucus membranes, dentition intact, no oropharyngeal lesions, neck supple, trachea midline, no LAD, no thyromegaly, no JVD Heart: +S1/S2, regular, no m/r/g Lungs: equal air entry bilaterally, no rales/rhonchi/wheezes Abd: +BS, soft, NT/ND, no masses/organomegaly/ascites Ext: warm, 2+ pulses in UE/LE bilaterally, no clubbing/cyanosis or edema Neuro: nonfocal, patient AA&O x 4, speech intact, no facial droop, moving all extremities on command with equal strength 5/5 Shallow based ulcerations of plantar surface of great toe and 2nd toe Redness of dorsal surface with some redness/flaking between toes No crepitus, bullae or streaking Results & Data Results & Data Vital Signs (Past 12 Hours) Vital Signs Temp Pulse Pulse Resp BP BP Pulse Ox 02/07/24 20:50 66 02/07/24 20:40 73 20 179/93 H 98 02/07/24 17:50 36.6 C 81 18 181/88 H 97 O2 Del Method 02/07/24 20:50 02/07/24 20:40 Room Air 02/07/24 17:50 Room Air Laboratory Results Laboratory Results WBC 9.93 K/ul (4.8-10.8) 02/07/24 18:10 RBC 5.40 M/uL (4.70-6.10) 02/07/24 18:10 Hgb 15.5 g/dl (14.0-18.0) 02/07/24 18:10 Hct 46.9 % (42.0-52.0) 02/07/24 18:10 MCV 86.9 fL (80.0-100.0) 02/07/24 18:10 MCH 28.7 pg (25.0-34.0) 02/07/24 18:10 MCHC 33.0 g/dL (32.0-36.0) 02/07/24 18:10 RDW Std Deviation 45.8 fL (36.4-46.3) 02/07/24 18:10 RDW Coeff of Rich 14.3 % (11.5-14.5) 02/07/24 18:10 Plt Count 285 K/uL (130-400) 02/07/24 18:10 MPV 9.8 fL (9.4-12.4) 02/07/24 18:10 Immature Gran % (Auto) 0.6 % 02/07/24 18:10 Neut % (Auto) 64.1 % 02/07/24 18:10 Lymph % (Auto) 24.5 % 02/07/24 18:10 Phillips % (Auto) 9.2 % 02/07/24 18:10 Eos % (Auto) 1.1 % 02/07/24 18:10 Baso % (Auto) 0.5 % 02/07/24 18:10 Neut # (Auto) 6.37 K/uL (1.40-6.50) 02/07/24 18:10 Lymph # (Auto) 2.43 K/uL (1.20-3.40) 02/07/24 18:10 Phillips # (Auto) 0.91 K/uL (0.11-0.59) H 02/07/24 18:10 Eos # (Auto) 0.11 K/uL (0.00-0.50) 02/07/24 18:10 Baso # (Auto) 0.05 K/uL (0.00-0.20) 02/07/24 18:10 Immature Gran # (Auto) 0.06 K/uL (0.01-0.20) 02/07/24 18:10 ESR 49 mm/hr (0-20) H 02/07/24 18:10 PT 11.8 Seconds (9.0-12.0) 02/07/24 18:10 INR 1.1 (0.9-1.1) 02/07/24 18:10 APTT 30 Seconds (21-31) 02/07/24 18:10 PTT Ratio 1.1 02/07/24 18:10 Sodium 139 mmol/L (136-145) 02/07/24 18:10 Potassium 4.1 mmol/L (3.5-5.1) 02/07/24 18:10 Chloride 106 mmol/L (98-107) 02/07/24 18:10 Carbon Dioxide 24 mmol/L (21-32) 02/07/24 18:10 Anion Gap 9 (3-11) 02/07/24 18:10 BUN 12 mg/dl (6-23) 02/07/24 18:10 Creatinine 0.83 mg/dl (0.6-1.4) 02/07/24 18:10 Est Cr Clr Drug Dosing Not Reportable 02/07/24 18:10 eGFR 91.84 02/07/24 18:10 BUN/Creatinine Ratio 14.5 (10-20) 02/07/24 18:10 Glucose 123 mg/dl (70-99(Fasting)) H 02/07/24 18:10 POC Glucose 80 mg/dl (70-99) 02/08/24 00:04 Lactate 1.7 mmol/L (0.4-2.0) 02/07/24 23:40 Calcium 9.5 mg/dl (8.6-10.3) 02/07/24 18:10 Total Bilirubin 0.8 mg/dl (0.2-1.0) 02/07/24 18:10 AST 18 U/L (13-39) 02/07/24 18:10 ALT 14 U/L (7-52) 02/07/24 18:10 Alkaline Phosphatase 83 U/L (34-104) 02/07/24 18:10 C-Reactive Protein 4.05 mg/dl (0-0.5) H 02/07/24 18:10 Total Protein 7.1 gm/dl (6.0-8.3) 02/07/24 18:10 Albumin 3.8 gm/dl (3.4-5.0) 02/07/24 18:10 Globulin 3.3 gm/dl (2.5-4.0) 02/07/24 18:10 Albumin/Globulin Ratio 1.2 (0.9-2) 02/07/24 18:10 Impressions Foot X-Ray 02/07/24 17:55 EXAM: XR foot LT min 3V routine CLINICAL HISTORY: LEFT FOOT INFECTION, DIABETIC ULCERS WTW TECHNIQUE: X-ray images of the left foot were obtained in anteroposterior (AP), lateral, and oblique projections. COMPARISON: No prior studies are available for comparison. FINDINGS: Bone Structure: Bone structure is normal and aligned. No evidence of fracture or dislocation. No osseous lesions or abnormalities are identified. A small calcific focus noted along the 5th metatarsal head is likely of benign etiology. Joint Spaces: Mild osteoarthritic changes of the intertarsal and 1st metatarsophalangeal joint are evident by narrow joint spaces and tiny osteophytes. Soft Tissues: Mild soft tissue swelling /edema of the foot. Linear vascular calcification at lower leg and foot. Additional Findings: Tiny erupting calcaneal spur is noted. IMPRESSION: 1. No evidence of acute fracture, or dislocation. No radiological evidence of osteomyelitis. 2. Mild soft tissue swelling /edema of the foot. 3. Mild osteoarthritic changes of the intertarsal and 1st metatarsophalangeal joint. 4. Tiny erupting calcaneal spur is noted. Disclaimer: A subtle bone abnormality or fracture may not be readily apparent on X-rays, thus clinical correlation and further imaging including follow-up CT, MRI, or follow-up X-rays are advised as needed. Electronically signed by Danielito Brumfield 02-07-2024 7:36 PM Code Status & VTE Plan VTE Prophylaxis Plan VTE Prophylaxis will be ordered: Yes PG Care Time/CCT Total # of Minutes Spent Total Time Spent with Patient: Total time spent is greater than 50% in coordination of care (as documented) at patient's floor/unit and/or counseling patient: Coding Level of Care Code 84748 INT INP/OBS CARE 3/75MIN Diagnoses 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 E11.628; L08.9 Atrial fibrillation I48.91 SABRINA (obstructive sleep apnea) G47.33
[2024-02-07] MEDS: TAMSULOSIN HCL 0.4 MG CAP PO STA (23:42)
[2024-02-07] MEDS: APIXABAN 5 MG TABLET PO STA (23:42)
[2024-02-08] MEDS ORDERED: DEXTROSE 50% 50 ML SYRINGE IV PRN (00:15)
[2024-02-08] MEDS ORDERED: GLUCOSE 40% GEL 15 GM TUBE PO PRN (00:15)
[2024-02-08] MEDS ORDERED: ONDANSETRON INJ 2 MG/ML 2 ML VIAL IV PRN (00:15)
[2024-02-08] MEDS ORDERED: GLUCOSE 10 TAB/TUBE PO PRN (00:15)
[2024-02-08] MEDS ORDERED: GLUCAGON FOR INJ 1 MG VIAL SQ PRN (00:15)
[2024-02-08] MEDS: ACETAMINOPHEN 325 MG TAB PO PRN (01:10)
[2024-02-08] MEDS: PIPERACILLIN/TAZOBACTAM 4.5 GM/100 ML BAG IV SCH (04:56)
[2024-02-08] MEDS: APIXABAN 5 MG TABLET PO SCH (09:01)
[2024-02-08] MEDS: NALTREXONE HCL 50 MG TAB PO SCH (09:01)
[2024-02-08] MEDS: METOPROLOL SUCC 50MG EXT REL TAB PO SCH (09:02)
[2024-02-08] MEDS: LORATADINE 10 MG TAB PO PRN (09:02)
[2024-02-08] MEDS: allopurinoL 300 MG TAB PO SCH (09:02)
[2024-02-08] MEDS: TAMSULOSIN HCL 0.4 MG CAP PO SCH (09:02)
[2024-02-08] MEDS: CLOTRIMAZOLE 1% CR 15 GM TUBE EXT SCH (09:02)
[2024-02-08] MEDS: buPROPion XL 300 MG TABCR PO SCH (09:02)
[2024-02-08] MEDS: LOSARTAN POTASSIUM 25 MG TAB PO SCH (09:02)
[2024-02-08] MEDS: INSULIN ASPART PER UNIT CHARGE SC SCH (09:09)
[2024-02-08] MEDS: LANTUS PER UNIT CHARGE SQ SCH (09:09)
[2024-02-08] MEDS: NYSTATIN POWDER 15GM BTL EXT SCH (10:05)
--- NOTE | 2024-02-08 10:13 | Infectious Disease Consult ---
Date of Consultation February 08, 2024 Assessment & Plan (1) 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: (2) Cellulitis: (3) Diabetic ulcer of toe of left foot: (4) Coronary heart disease: (5) Chronic venous insufficiency: Plan 73yo M with h/o T2DM c/b neuropathy, right SURJIT in 04/2016 c/b PJI /2 MSSA in 05/2016 s/p I+D without hardware removal or replacement on chronic suppressive augmentin (had R hip superficial cx in 08/2023 which showed H parainfluenzae and Prevotella bivia, follows with Oscar ID), bl knee replacements, afib, CAD/DE, GERD, gout who presented on 02/06 with redness, pain, and swelling of left foot x 1 week. He says 3 weeks ago he dropped boiling water on his foot causing burn and blister. On admission, he was afebrile, vss. WBC wnl, Cr and LFTs wnl, ESR 49, CRP 4.05. XR left foot without e/o OM. ID consulted 02/07. Given toe ulcer and elevated ESR/CRP with infection, favor obtaining MRI of left foot to r/o underlying OM. Podiatry should also be consulted, he sees them outpatient. Will continue on empiric coverage for now. Outpatient augmentin ok to be held since hes on broad spectrum. 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 If questions or concerns, contact via [facility]ip[facility] or Infectious Disease Call Center . Jenny Zepeda MD [facility], Division of Infectious Diseases [facility]: [phone] Consultation Information Consultation was provided via telemedicine using two-way real-time interactive telecommunication between the patient and the telemedicine provider. For the duration of the visit, the provider was performing the assessment from a different facility than the patient. This includesuse of bluetooth stethoscope forauscultationperformed by the telepresenter that the telemedicine provider can hear if described in the physical exam. Diesel Engine [employer] Pipe Fitter contact information: Please call [facility] Call Center . (Phone Number For Physician Use Only) After establishing a telemedicine visit, patient was: Patient was verified with two unique identifiers, Patient/authorized rep acknowledged consent and und erstanding and Gave permission to continue telehealth session Time Spent with Patient: Initial => 75 min History of Present Illness Reason for Consultation: diabetic foot ulcer Attending Physician: Hakan Truong MD History of Present Illness 73yo M with h/o T2DM c/b neuropathy, right SURJIT in 04/2016 c/b PJI 04/30 MSSA in 05/2016 s/p I+D without hardware removal or replacement on chronic suppressive augmentin (had R hip superficial cx in 08/2023 which showed H parainfluenzae and Prevotella bivia, follows with Oscar ID), bl knee replacements, afib, CAD/DE, GERD, gout who presented on 02/06 with redness and swelling of left foot. He says 3 weeks ago he dropped boiling water on his foot. He did have a blister afterwards. A week ago, he developed redness of his left foot, swelling, and pain. He has not taken any additional abx aside from his chronic augmentin. 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 No fevers, abdominal pain, vomiting, diarrhea. On admission, he was afebrile, vss. WBC wnl, Cr and LFTs wnl, ESR 49, CRP 4.05. XR left foot without e/o OM. Allergies Allergy/AdvReac Type Severity Reaction Status Date / Time No Known Drug Allergies Allergy Verified 02/07/24 13:44 Home Medications Medication Instructions Recorded Confirmed Type cholecalciferol (vitamin D3) 50 2,000 unit PO QAM 03/03/18 02/07/24 History mcg (2,000 unit) capsule (Vitamin D3) lancets 33 gauge ([facility] #100 ea 11/04/18 02/07/24 History Lancets) ascorbate calcium (vitamin C) 500 500 mg PO DAILY #30 tabs 07/11/20 02/07/24 Rx mg tablet ferrous sulfate 325 mg (65 mg 325 mg PO DAILY #30 tabs 07/11/20 02/07/24 Rx iron) tablet docusate sodium 100 mg capsule 100 mg PO BID PRN Constipation 10/21/20 02/07/24 History (Colace) mecobalamin (vitamin B12) 1 tab PO DAILY 02/06/22 02/07/24 History pyridoxine (vitamin B6) 1 tab PO DAILY 02/06/22 02/07/24 History torsemide 20 mg tablet 10 mg PO DAILY PRN Fluid Retention 05/08/22 02/07/24 History loratadine 10 mg tablet 10 mg PO DAILY PRN ALLERGIES 10/08/22 02/07/24 History mupirocin 2 % topical ointment 1 applic topical TID PRN scrotal 11/05/22 02/07/24 Rx sores #22 grams OneTouch Verio test strips (blood #100 ea 12/01/22 02/07/24 Rx sugar diagnostic) diclofenac sodium 1 % topical gel 2 g topical QID PRN Pain 02/05/23 02/07/24 History (Arthritis Pain (diclofenac)) metoprolol succinate 50 mg 50 mg PO QAM #90 tabs 03/10/23 02/07/24 Rx tablet,extended release 24 hr apixaban 5 mg tablet 5 mg PO BID #180 tabs 03/17/23 02/07/24 Rx empagliflozin 10 mg tablet 10 mg PO DAILY #90 tabs 06/14/23 02/07/24 Rx (Jardiance) needle (disp) 21 G 21 gauge x 1 #100 ea 09/16/23 02/07/24 Rx 1/2" (BD Eclipse Luer-Jesus) testosterone cypionate 200 mg/mL 100 mg (0.5 mL) subcut Q10D #2 mL 09/16/23 02/07/24 Rx intramuscular oil syringe with needle 3 mL 20 gauge #100 ea 09/27/23 02/07/24 Rx x 1 1/2" (BD Luer-Jesus Syringe) nystatin 100,000 unit/gram topical 1 applic topical DAILY 30 days #60 11/02/23 02/07/24 Rx powder grams dutasteride 0.5 mg capsule 0.5 mg PO DAILY #90 caps 11/09/23 02/07/24 Rx (Avodart) hydrocortisone 2.5 % topical cream 1 applic [place] DAILY PRN hemorrhoids 11/09/23 02/07/24 Rx with perineal applicator #30 grams (Anusol-HC) magnesium oxide 400 mg PO DAILY #30 tabs 11/13/23 02/07/24 Rx tadalafil 5 mg tablet (Cialis) 5 mg PO DAILY PRN Other 11/13/23 02/07/24 History bupropion HCl 300 mg 24 hr tablet, 300 mg PO DAILY #30 tabs 11/30/23 02/07/24 Rx extended release losartan 25 mg tablet 25 mg PO DAILY #90 tabs 12/09/23 02/07/24 Rx metformin 500 mg tablet,extended 1,000 mg (2 x 500 mg) PO BID #360 12/20/23 02/07/24 Rx release 24 hr tabs tamsulosin 0.4 mg capsule 0.4 mg PO BID #180 caps 12/27/23 02/07/24 Rx atorvastatin 80 mg tablet 80 mg PO DAILY #90 tabs 12/28/23 02/07/24 Rx allopurinol 300 mg tablet 300 mg PO QAM #90 tabs 12/31/23 02/07/24 Rx naltrexone 50 mg tablet 25 mg (1/2 x 50 mg) PO DAILY #30 01/06/24 02/07/24 Rx tabs amoxicillin 875 mg-potassium 1 tab PO BID 02/07/24 02/07/24 History clavulanate 125 mg tablet Patient History Medical History Tremor History of myocardial infarction Non-ST elevated DE Alopecia Atypical nevi Chronic pain Cor pulmonale (chronic) Degenerative joint disease involving multiple joints on both sides of body Erectile dysfunction Tinea pedis Vitamin D deficiency Surgical History S/P total knee arthroplasty b/l, then b/l revisions S/P tonsillectomy H/O knee surgery x4 H/O inguinal hernia repair 2016 History of hip surgery 04/2016 and 05/2016 H/O hernia repair 2016 Hx of cholecystectomy History of bladder surgery Family History Mother FH: Parkinson's disease Breast cancer Father Coronary heart disease Hypertension Cardiac disease Melanoma Skin cancer Unknown Melanoma Denies family history of Ovarian cancer Prostate cancer Myocardial infarction Lung cancer Colorectal cancer Social History Smoking Status: Never smoker Second Hand Exposure: No; Do You Dip or Chew Tobacco: No; Hx Alcohol Use: No Hx Substance Use: No Preferred Language: Romanian Communication Ability: Effective Visual Impairment: Limited Hearing Ability: Normal Cardiothoracic Icu Rn Required: No Beliefs That Will Affect Care: None marital status: Current Living Situation: Spouse current occupational status: retired 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 Physical Exam Physical Exam: General: Awake, alert, no acute distress HEENT: NC/AT, EOMI, mmm Neck: supple Lungs: respirations non-labored Heart: nl peripheral perfusion Abdomen: soft, NT/ND Ext: left leg swelling, left foot with redness in forefoot, ulcer at tip of great toe with black discoloration, wound on base of great toe on dorsal surface that was previously a blister Skin: chronic stasis changes on bl leg Neuro: moving all extremities Results & Data Vital Signs (Past 12 Hours) Vital Signs Temp Pulse Pulse Pulse Resp BP BP 02/08/24 07:21 36.5 C 64 16 147/84 H 02/08/24 01:03 160/95 H 02/08/24 00:05 36.5 C 73 16 194/92 H 02/07/24 23:39 36.9 C 88 19 169/108 H 02/07/24 22:00 67 22 183/90 H Pulse Ox O2 Del Method 02/08/24 07:21 94 Room Air 02/08/24 01:03 02/08/24 00:05 96 Room Air 02/07/24 23:39 96 Room Air 02/07/24 22:00 99 Room Air Laboratory Results Labs reviewed. Diagnostic Findings Imaging reviewed. (3) Diabetic ulcer of toe of left foot Diabetes mellitus type: type 2 Non-pressure ulcer stage: with fat layer exposed Qualified Code(s): E11.621 - Type 2 diabetes mellitus with foot ulcer; L97.522 - Non-pressure chronic ulcer of other part of left foot with fat layer exposed
--- NOTE | 2024-02-08 13:46 | Hospitalist Progress Note ---
Date of Service February 08, 2024 Assessment & Plan (1) 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: Plan: -ID consult appreciated -MRI foot ordered -podiatry consulted -daptomycin/zosyn -wound care (2) Atrial fibrillation: Plan: -Continue Apixaban -Continue Metoprolol (3) SABRINA (obstructive sleep apnea): Plan: Chronic. Patient is compliant with CPAP -Continue CPAP qHS Plan BPH -Continue Flomax Hypertension -Continue Losartan -Continue Metoprolol DM -Lantus 7u BID -ISS Gout -Continue Allopurinol Admission and Anticipated Discharge Date Admission Date: February 07, 2024 Subjective No events overnight, pt resting comfortably in bed. No fever or chills overnight. Review of Systems Review of Systems: CONST: Negative for fever, body aches and chills. HENT: Negative for neck pain/stiffness, headache, congestion, sore throat, swelling. EYES: Negative for discharge/pain or vision changes. RESP: Negative for cough/hemoptysis and shortness of breath. CV: Negative chest pain, difficulty breathing, palpitations. ABD: Negative pain, nausea, vomiting. : Negative increase frequency, dysuria, blood in urine or stool. MUSC: Negative for muscle aches, edema. SKIN: Left foot swelling and erythema NEURO: Negative headache, dizziness, weakness. Physical Exam Physical Exam: GENERAL APPEARANCE NAD, activity normal for age, well developed/ well nourished, no cyanosis, pallor, or diaphoresis. EYES lids/conjunctiva normal. EARS/NOSE/THROAT Mucous membranes moist, nares normal, lips/teeth normal uvula midline without oral pharyngeal erythema, exudate or swelling TMs normal bilaterally. No lymphangitis/lymphedema. HEAD/NECK normocephalic atraumatic, no facial trauma, neck is supple. RESPIRATORY respiratory effort normal, speaks in full sentences, no tripod position, no accessory muscle use. Lungs clear to auscultation without rhonchi, wheezes, rales CARDIAC Regular rate and rhythm, no edema. ABDOMINAL Soft, ND/NT. No evidence of fluid wave. No pulsatile masses on exam, rebound tenderness, Parra sign or pain over Mcburney's point. MUSCLES/EXTREMITIES No abnormal range of motion, no swelling. Left foot erythema up to ankle with 1+ edema. SKIN Warm, pink and dry. No rashes, dermatoses, petechiae or lesions. NEUROLOGICAL Speech is clear and appropriate. Normal level of consciousness. Gait and coordination are normal. 5/5 strength in all extremities. PSYCH Normal mood and affect. Judgement/competence is appropriate Results & Data Results & Data Vital Signs (Past 12 Hours) Vital Signs Temp Pulse Resp BP Pulse Ox O2 Del Method 02/08/24 09:00 Room Air 02/08/24 07:21 36.5 C 64 16 147/84 H 94 Room Air PG Care Time/CCT Total # of Minutes Spent Total Time Spent with Patient: Total time spent is greater than 50% in coordination of care (as documented) at patient's floor/unit and/or counseling patient: Coding Level of Care Code 43730 SUB INP/OBS CARE 2/35MIN Diagnoses 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 E11.628; L08.9 Atrial fibrillation I48.91 SABRINA (obstructive sleep apnea) G47.33
[2024-02-08] MEDS: GADOBUTROL 65ML VIAL IV ONE (21:23)
--- NOTE | 2024-02-09 00:03 | Magnetic Resonance Report ---
Exam(s): MRI LEFT FOOT W/WO Contrast IV Amt: 15ml gadavist EXAM: MR Left Lower Extremity Without and With Intravenous Contrast, Foot CLINICAL HISTORY: Reason for exam: r/o osteo. TECHNIQUE: Multiplanar magnetic resonance images of the left foot without and with intravenous contrast. CONTRAST: Patient received 15ml gadavist of IV contrast COMPARISON: X-ray 02/07/2024 FINDINGS: No acute fracture. Normal marrow signal. No osteomyelitis. Dorsal subcutaneous soft tissue edema. No abscess. Hallux valgus and moderate degenerative changes at the first MTP joint. IMPRESSION: 1. No osteomyelitis. Electronically signed by: Eduardo Andrews MD 02/09/24 00:03 AM
--- NOTE | 2024-02-09 07:26 | Hospitalist Progress Note ---
Date of Service February 09, 2024 Assessment & Plan (1) 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: Plan: -ID consult appreciated no osteomyelitis seen -MRI foot ordered -podiatry consulted -daptomycin/zosyn-patient changed to cefepime per infectious disease -wound care discussion of starting Santyl with podiatry (2) Atrial fibrillation: Plan: -chronic stable rate controlled Continue Apixaban -Continue Metoprolol (3) SABRINA (obstructive sleep apnea): Plan: Chronic. Patient is compliant with CPAP -Continue CPAP qHS Plan BPH -Continue Flomax Hypertension -Continue Losartan -Continue Metoprolol DM -Hypoglycemic episodes will hold long-acting insulin 02/09/2024 -ISS Gout -Continue Allopurinol Admission and Anticipated Discharge Date Admission Date: February 07, 2024 Subjective Still has painful toes was seen in conjunction with frozen food department manager Dr. Celestin. Patient has eschar's likely will apply some Santyl There is no osteomyelitis seen on imaging studies. Physical Exam Physical Exam: Both feet have evidence of some vascular distress there are dry and crusted there are multiple areas of abrasions on toes on both feet. With the foot in question that had the thermal injury there is some red-colored skin open areas on the great toe and likely the third toe. Marked onychomycosis of all nails Overall cellulitis is improving based upon description Results & Data Results & Data Vital Signs (Past 12 Hours) Vital Signs Temp Pulse Resp BP Pulse Ox O2 Del Method 02/08/24 19:57 Room Air, CPAP 02/08/24 19:35 97.5 F L 60 18 163/91 H 95 Room Air Laboratory Results Reviewed CBC reviewed chemistry Discussed case with frozen food department manager at bedside Adjusted insulin due to hypoglycemic episode PG Care Time/CCT Total # of Minutes Spent Total Time Spent with Patient: Total time spent is greater than 50% in coordination of care (as documented) at patient's floor/unit and/or counseling patient: Coding Level of Care Code 98682 SUB INP/OBS CARE 3/50MIN Diagnoses 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 E11.628; L08.9 Atrial fibrillation I48.91 SABRINA (obstructive sleep apnea) G47.33
[2024-02-09 08:26] LABS: Hematocrit (blood only) 43.8 % (42.0-52.0); Hemoglobin 14.4 g/dl (14.0-18.0); Mean Corpuscular Hemoglobin 28.2 pg (25.0-34.0); Mean Corpuscular Hgb Conc 32.9 g/dL (32.0-36.0); Mean Corpuscular Volume 85.9 fL (80.0-100.0); Platelet Count 268 K/uL (130-400); RDW Coefficient of Variation 14.1 % (11.5-14.5); RDW Standard Deviation 44.4 fL (36.4-46.3); White Blood Count 6.93 K/ul (4.8-10.8)
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
[2024-02-09 08:54] LABS: Calcium 8.8 mg/dl (8.6-10.3); Potassium 3.7 mmol/L (3.5-5.1)
[2024-02-09 08:59] LABS: BUN Creatinine Ratio 14.1 (10-20); Creatinine Clr Calc Pharmacy 119.1 ml/min
[2024-02-09] MEDS: CEFEPIME 2000MG 2,000 MG/20 ML SYR IV SCH (10:14)
[2024-02-09] MEDS: CARBOHYDRATES FOR HYPOGLYCEMIA PO PRN (16:58)
[2024-02-09] MEDS: COLLAGENASE OINT 30 GM TUBE EXT SCH (18:00)
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
[2024-02-10] MEDS: oxyCODONE HCL IR 5 MG TAB (IMMEDIATE RELEASE) PO STA (00:42)
[2024-02-10] MEDS: MAGNESIUM SULFATE / D5W 1 GM/100 ML BAG IV SCH (00:43)
--- NOTE | 2024-02-10 08:49 | Hospitalist Progress Note ---
Date of Service February 10, 2024 Assessment & Plan (1) 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: Plan: -ID consult appreciated no osteomyelitis seen -MRI foot ordered -podiatry consulted -Infectious diseases added back daptomycin added metronidazole continue cefepime per their note from 02/10/2024 -wound care discussion of starting Santyl with podiatry (2) Atrial fibrillation: Plan: -chronic stable rate controlled Continue Apixaban -Continue Metoprolol (3) SABRINA (obstructive sleep apnea): Plan: Chronic. Patient is compliant with CPAP -Continue CPAP qHS Plan BPH -Continue Flomax Hypertension -Continue Losartan -Continue Metoprolol DM -Hypoglycemic episodes will hold long-acting insulin 02/09/2024 -ISS Gout -Continue Allopurinol Admission and Anticipated Discharge Date Admission Date: February 07, 2024 Subjective The morning of 4 on telehealth infectious disease felt patient's foot looks worse subsequently broaden his antibiotic coverage to include daptomycin and metronidazole this is in addition to cefepime. Upon my bedside evaluation his foot does not look significantly different than yesterday. Patient subjectively states his foot did look more red in the morning and now it looks less red and this is even after the patient walked upright for physical therapy. Patient does not have any increased pain drainage or discharge. Beginning Santyl treatment to the dry areas of eschar Physical Exam Physical Exam: Patient does have erythema is mostly within the line of demarcation drawn on the there is some outside of it but is not substantial. There is no fluctuance there is mild swelling there is no erythema. The foot remains red and in the background context of chronic venous stasis changes. Results & Data Results & Data Vital Signs (Past 12 Hours) Vital Signs Temp Pulse Resp BP Pulse Ox O2 Del Method 02/10/24 07:58 97.5 F L 60 18 146/58 H 96 Room Air 02/09/24 21:56 97.6 F 65 16 170/93 H 97 Room Air PG Care Time/CCT Total # of Minutes Spent Total Time Spent with Patient: Total time spent is greater than 50% in coordination of care (as documented) at patient's floor/unit and/or counseling patient: Coding Level of Care Code 04670 SUB INP/OBS CARE 2/35MIN Diagnoses 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 E11.628; L08.9 Atrial fibrillation I48.91 SABRINA (obstructive sleep apnea) G47.33
--- NOTE | 2024-02-10 09:31 | Infectious Disease Progress Nt ---
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 He says 3 weeks ago he dropped boiling water on his foot causing burn and blister. On admission, he was afebrile, vss. WBC wnl, Cr and LFTs wnl, ESR 49, CRP 4.05. XR left foot without e/o OM. He was started on dapto/zosyn. ID consulted 02/07. MRI left foot negative for OM. WCx with E cloacae. MRSA screen neg. Abx were changed to cefepime on 02/08 based on cx but foot is worse today. Will add back daptomycin since foot is worse, continue cefepime for E cloacae. Im also adding back anaerobic coverage given diabetic foot, though anaerobes didnt grow on current cx but he still had worsening infection on abx directed to cx. 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 If questions or concerns, contact via [facility] or Infectious Disease Call Center . Jenny Zepeda MD [facility], Division of Infectious Diseases [facility]: [phone] Admission and Anticipated Discharge Date Admission Date: February 07, 2024 Subjective Subsequent visit was provided via telemedicine using two-way real-time interacti ve telecommunication between the patient and the telemedicine provider. For the duration of the visit, the provider was performing the assessment from a different facility than the patient. This includesuse of bluetooth stethoscope forauscultationperformed by the telepresenter that the telemedicine provider can hear if described in the physical exam. Major General contact information: Please call [facility] Call Center [phone]. (Phone Number For Physician Use Only) After establishing a telemedicine visit, patient was: Patient was verified with two unique identifiers, Patient/authorized rep acknowledged consent and understanding and Gave permission to continue telehealth session Time Spent with Patient: Subsequent => 55 min Patient with worsening redness of the foot today. No drainage. Physical Exam Physical Exam: General: Awake, alert, no acute distress HEENT: NC/AT, EOMI, mmm Neck: supple Lungs: respirations non-labored Ext: left foot with redness in forefoot that's worse, ulcer at tip of great toe with dark discoloration, wound on base of great toe on dorsal surface that was previously a blister Skin: chronic stasis changes on bl leg Results & Data Vital Signs (Past 12 Hours) Vital Signs Temp Pulse Resp BP Pulse Ox O2 Del Method 02/10/24 07:58 36.4 C L 60 18 146/58 H 96 Room Air 02/09/24 21:56 36.4 C 65 16 170/93 H 97 Room Air Laboratory Results Labs reviewed. (1) Diabetic ulcer of toe of left foot Diabetes mellitus type: type 2 Non-pressure ulcer stage: with fat layer expo sed Qualified Code(s): E11.621 - Type 2 diabetes mellitus with foot ulcer; L97.522 - Non-pressure chronic ulcer of other part of left foot with fat layer exposed (2) Cellulitis Site of cellulitis: extremity Site of cellulitis of extremity: lower extremity Laterality: left Qualified Code(s): L03.116 - Cellulitis of left lo wer limb
[2024-02-10] MEDS: DAPTOmycin 400 MG in SYRINGE 0 ML IV SCH (09:59)
[2024-02-10] MEDS: metroNIDAZOLE 500 MG TAB PO SCH (10:04)
--- NOTE | 2024-02-10 15:26 | Hospitalist Progress Note ---
Date of Service February 10, 2024 Assessment & Plan (1) 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: Plan: -duiabetic associated cellulitis and chronic venous stasis changes right lower leg ID consult appreciated no osteomyelitis seen -MRI foot ordered -podiatry consulted -Infectious diseases added back daptomycin added metronidazole continue cefepime per their note from 02/10/2024 -wound care discussion of starting Santyl with podiatry (2) Atrial fibrillation: Plan: -chronic stable rate controlled Continue Apixaban -Continue Metoprolol (3) SABRINA (obstructive sleep apnea): Plan: Chronic. Patient is compliant with CPAP -Continue CPAP qHS Plan BPH -Continue Flomax Hypertension -Continue Losartan -Continue Metoprolol DM -Hypoglycemic episodes will hold long-acting insulin 02/09/2024 -ISS Gout -Continue Allopurinol Admission and Anticipated Discharge Date Admission Date: February 07, 2024 Results & Data Results & Data Vital Signs (Past 12 Hours) Vital Signs Temp Pulse Resp BP Pulse Ox O2 Del Method 02/10/24 07:58 97.5 F L 60 18 146/58 H 96 Room Air PG Care Time/CCT Total # of Minutes Spent Total Time Spent with Patient: Total time spent is greater than 50% in coordination of care (as documented) at patient's floor/unit and/or counseling patient: Coding Level of Care Code None Diagnoses 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 E11.628; L08.9 Atrial fibrillation I48.91 SABRINA (obstructive sleep apnea) G47.33
[2024-02-11] MEDS: DICLOFENAC SOD 1% GEL 100 GM TUBE EXT PRN (00:08)
[2024-02-11 08:55] LABS: Hematocrit (blood only) 45.4 % (42.0-52.0); Mean Corpuscular Hemoglobin 28.7 pg (25.0-34.0); Mean Platelet Volume 9.8 fL (9.4-12.4); Platelet Count 290 K/uL (130-400); RDW Coefficient of Variation 14.5 % (11.5-14.5); RDW Standard Deviation 45.7 fL (36.4-46.3); Red Blood Count 5.22 M/uL (4.70-6.10); White Blood Count 7.05 K/ul (4.8-10.8)
[2024-02-11 08:59] LABS: BUN Creatinine Ratio 16.5 (10-20); Creatinine Clr Calc Pharmacy 117.6 ml/min
--- NOTE | 2024-02-11 09:10 | Infectious Disease Progress Nt ---
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 He says 3 weeks ago he dropped boiling water on his foot causing burn and blister. On admission, he was afebrile, vss. WBC wnl, Cr and LFTs wnl, ESR 49, CRP 4.05. XR left foot without e/o OM. He was started on dapto/zosyn. ID consulted 02/07. MRI left foot negative for OM. WCx with E cloacae. MRSA screen neg. Abx were changed to cefepime on 02/08 based on cx but foot was worse 02/09 so dapto/flagyl added. Improving today. His left foot looks better today. 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 I would favor another day of IV abx, however if really needs to be discharged today, then if hes doing better later this afternoon, then can change to PO. Since he got clinically worse with narrowed regimen, discharge regimen will be broad, which I explained to patient and he is in agreement. 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 However, if he wants to be discharged today, then if clinically improving this afternoon, can change to PO with close follow up - When hes ready for discharge, will plan to complete a 7-10 day course of abx (start 02/06, end around 02/15) with the following: doxycycline 100mg PO bid + levofloxacin 750mg PO daily + metronidazole 500mg PO bid - please resume outpatient augmentin AFTER he completes his regimen for cellulitis ID will continue to follow. Please note that there will be no ID notes over the weekend. If questions or concerns arise, please contact the Infectious Disease Call Center and ask to speak with the covering ID physician. Dr. Camacho will take over on Wednesday. Jenny Zepeda MD [facility], Division of Infectious Diseases [facility]: [phone] Admission and Anticipated Discharge Date Admission Date: February 07, 2024 Subjective Subsequent visit was provided via telemedicine using two-way real-time interactive telecommunication between the patient and the telemedicine provider. For the duration of the visit, the provider was performing the assessment from a different facility than the patient. This includesuse of bluetooth stethoscope forauscultationperformed by the telepresenter that the telemedicine provider can hear if described in the physical exam. [employer] contact information: Please call [facility] Call Center . (Phone Number For Physician Use Only) After establishing a telemedicine visit, patient was: Patient was verified with two unique identifiers, Patient/authorized rep acknowledged consent and understanding and Gave permission to continue telehealth session Time Spent with Patient: Subsequent => 55 min Patient says last night he thought foot was worse but this morning feels better. No other complaints. Physical Exam Physical Exam: General: Awake, alert, no acute distress HEENT: NC/AT, EOMI, mmm Neck: supple Lungs: respirations non-labored Ext: left foot with redness in forefoot improving today Skin: chronic stasis changes on bl leg Results & Data Vital Signs (Past 12 Hours) Vital Signs Temp Pulse Pulse Resp BP Pulse Ox O2 Del Method 02/11/24 08:05 36.3 C L 62 16 114/70 96 Room Air 02/10/24 21:27 36.7 C 74 16 151/79 H 98 Room Air Laboratory Results Labs reviewed. Microbiology 02/07/24 20:51 Foot,Left Gram Stain - Final 02/07/24 20:51 Foot,Left Wound Culture - Final Enterobacter cloacae complex (1) Cellulitis Laterality: left Site of cellulitis: extremity Site of cellulitis of extremity: lower extremity Qualified Code(s): L03.116 - Cellulitis of left lower limb (2) Diabetic ulcer of toe of left foot Diabetes mellitus type: type 2 Non-pressure ulcer stage: with fat layer exposed Qualified Code(s): E11.621 - Type 2 diabetes mellitus with foot ulcer; L97.522 - Non-pressure chronic ulcer of other part of left foot with fat layer exposed
--- NOTE | 2024-02-11 12:10 | Hospitalist Progress Note ---
Date of Service February 11, 2024 Assessment & Plan (1) 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: Plan: diabetic associated cellulitis and chronic venous stasis changes right lower leg - MRI of the foot showed no osteomyelitis - Foot x-ray showed no acute fracture, mild soft tissue swelling/edema, mild osteoarthritic changes of first metatarsophalangeal joint, tiny erupting calcaneal spur - Wound cultures showing Enterobacter cochlea complex pansensitive - ID consult appreciated - continue daptomycin 4-6mg/kg IV q24h (BMI > 30) for empiric MRSA coverage - continue metronidazole 500mg PO bid for empiric anaerobic coverage in DFI - continue cefepime 2g IV q8h for isolated Enterobacter on cx Switch to PO on 02/11 and d/c on 7-10 day course of abx (start 02/06, end around 02/15) with the following: doxycycline 100mg PO bid + levofloxacin 750mg PO daily + metronidazole 500mg PO bid - please resume outpatient augmentin AFTER he completes his regimen for cellulitis - podiatry consulted - will see patient next week after dc - wound care discussion of starting Santyl with podiatry Diabetes management: continue hypoglycemia - removed carb ratio and only utilize correction factor 02/10 (2) Atrial fibrillation: Plan: chronic stable rate controlled - Continue Apixaban - Continue Metoprolol (3) SABRINA (obstructive sleep apnea): Plan: Chronic; Patient is compliant with CPAP -Continue CPAP qHS Plan BPH -Continue Flomax Hypertension -Continue Losartan -Continue Metoprolol Gout -Continue Allopurinol Dispo: med surg; plan to discharge home 02/11, patient denies wanting home health, feels he will be okay with the support of his at home. Admission and Anticipated Discharge Date Admission Date: February 07, 2024 Subjective Patient seen at bedside, doing well. He plans to discharge tomorrow on oral antibiotics. No complaints at this time. Review of Systems Review of Systems: see HPI Physical Exam Physical Exam: The patient is awake, alert and oriented 3, well developed and well nourished, normocephalic and atraumatic, in no acute distress. Non-toxic appearing. HEENT- EOMI, mucous membranes moist. Hearing grossly intact. Heart-normal S1 and S2. No murmurs, rubs or gallops. Lungs-clear bilaterally, no respiratory distress, no accessory muscle use. Abdomen-normal bowel sounds and soft. No ascites noted. Non-tender. Extremities- no clubbing, cyanosis, or edema. Bandages to left foot. Rheumatologic-normal range of motion. Psychiatric-normal affect. Results & Data Results & Data Vital Signs (Past 12 Hours) Vital Signs Temp Pulse Resp BP Pulse Ox O2 Del Method 02/11/24 08:05 36.3 C L 62 16 114/70 96 Room Air Laboratory Results reviewed CBC and BMP PG Care Time/CCT Total # of Minutes Spent Total Time Spent with Patient: Total time spent is greater than 50% in coordination of care (as documented) at patient's floor/unit and/or counseling patient: Coding Level of Care Code 46620 SUB INP/OBS CARE 2/35MIN Diagnoses 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 E11.628; L08.9 Atrial fibrillation I48.91 SABRINA (obstructive sleep apnea) G47.33
[2024-02-11 16:17] VITALS: RESP 18
[2024-02-12 06:53] LABS: BUN Creatinine Ratio 18.8 (10-20); Calcium 8.8 mg/dl (8.6-10.3); Creatinine Clr Calc Pharmacy 116.1 ml/min; Potassium 4.1 mmol/L (3.5-5.1)
[2024-02-12 08:01] VITALS: BP 155/64; PULSE 64; TEMP 97.5; O2SAT 94
[2024-02-12] MEDS: DOCUSATE SODIUM 100 MG CAP PO PRN (08:17)
--- NOTE | 2024-02-12 10:00 | Discharge Summary ---
Date of Service February 12, 2024 Admission HPI Per Admitting Provider Timothy Lopez is a 73yo male with history of DM, HTN, CAD, GERD and SABRINA on CPAP presenting with left foot infection. Patient spilled some boiling water on his foot three weeks ago which mostly hit his left great toe and 2nd toe. Since then he has had worsening redness and ulceration of his plantar surface of his 1st and 2nd toe. Patient had right hip replacement in 2017 which unfortunately became infected - he has daily wound care and is on chronic suppressive therapy with Augmentin Patient denies fever, chills, chest pain, nausea, vomiting, diarrhea. No additional complaints at this time In the ER patient afebrile, hypertensive otherwise HD stable Admission Exam Per Admitting Provider General: patient resting comfortably, NAD, non-toxic in appearance, AA&O x 4 HEENT: NC/AT, PERRL, EOMI, anicteric sclera, conjunctiva without injection, external ear normal to inspection and nontender, nares patent, moist mucus membranes, dentition intact, no oropharyngeal lesions, neck supple, trachea midline, no LAD, no thyromegaly, no JVD Heart: +S1/S2, regular, no m/r/g Lungs: equal air entry bilaterally, no rales/rhonchi/wheezes Abd: +BS, soft, NT/ND, no masses/organomegaly/ascites Ext: warm, 2+ pulses in UE/LE bilaterally, no clubbing/cyanosis or edema Neuro: nonfocal, patient AA&O x 4, speech intact, no facial droop, moving all extremities on command with equal strength 5/5 Shallow based ulcerations of plantar surface of great toe and 2nd toe Redness of dorsal surface with some redness/flaking between toes No crepitus, bullae or streaking Principal Diagnosis Left diabetic foot infection with cellulitis Diabetes mellitus type 2 History of right hip prosthetic joint infection on chronic Augmentin Chronic atrial fibrillation on apixaban Obstructive sleep apnea BPH benign essential hypertension Gout Discharge Exam General: Awake, conversant. Morbidly obese Heart: S1, S2/regular rate and rhythm, no murmur rubs or gallops Lungs: Clear to auscultation bilaterally. Normal effort Abdomen: Soft/nontender/nondistended. No hepatosplenomegaly Extremities: No clubbing/cyanosis. No edema. Left foot dressing on Behavior: Appropriate, cooperative Discharge Data Allergies Allergy/AdvReac Type Severity Reaction Status Date / Time No Known Drug Allergies Allergy Verified 02/07/24 13:44 Consultations 02/07/24 21:40 ED Decision to Admit Stat 02/08/24 08:35 Consult Infectious Diseases Routine 02/08/24 13:34 Consult Podiatry Routine Ordered Studies 02/08/24 13:37 MRI Foot [MR foot LT wo/w con] Routine Hospital Course (1) 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: diabetic associated cellulitis and chronic venous stasis changes right lower leg - MRI of the foot showed no osteomyelitis - Foot x-ray showed no acute fracture, mild soft tissue swelling/edema, mild osteoarthritic changes of first metatarsophalangeal joint, tiny erupting calcaneal spur - Wound cultures showing Enterobacter cochlea complex pansensitive - ID consult appreciated. Patient was treated with - daptomycin 4-6mg/kg IV q24h (BMI > 30) for empiric MRSA coverage - metronidazole 500mg PO bid for empiric anaerobic coverage in DFI - cefepime 2g IV q8h for isolated Enterobacter on cx Plan is to switch to p.o. antibiotics today to complete a course she will 02/15 with the following: doxycycline 100mg PO bid + levofloxacin 750mg PO daily + metronidazole 500mg PO bid Patient has been advised to resume outpatient augmentin AFTER he completes his regimen for cellulitis - podiatry consulted - will see patient next week after dc - wound care discussion of starting Santyl with podiatry Diabetes management (2) Atrial fibrillation: chronic stable rate controlled - Continue Apixaban - Continue Metoprolol (3) SABRINA (obstructive sleep apnea): Chronic; Patient is compliant with CPAP -Continue CPAP qHS Plan BPH -Continue Flomax Hypertension -Continue Losartan -Continue Metoprolol Gout -Continue Allopurinol Discharge to home today Total Time Total Time Spent Total Time Spent (In Minutes): 35 Discharge Plan Discharge Items Patient Disposition: Home - Self-Care Reason For Visit: DIABETIC FOOT INFECTION Discharge Diagnosis: Left diabetic foot infection with cellulitis Diabetes mellitus type 2 History of right hip prosthetic joint infection on chronic Augmentin Chronic atrial fibrillation on apixaban Obstructive sleep apnea BPHbenign essential hypertension Gout Activity: Resume your previous activity Non-emergency contact: Primary Care Provider Call non-emergency contact if: you have any medication questions and your symptoms worsen Follow-up/Referrals: Lewis Menendez DO [Primary Care Provider] - Dez Celestin DPM [Physician] - Diet: Carb Consistent or DM2 Addtl Attending Provider Instructions: Advised to note that you are being discharged on 3 antibiotics, to complete the course on 02/15 Advised to resume outpatient Augmentin after completing your regimen on 02/15 Advised to follow-up with PCP in 1 week Advised to follow-up with podiatry in 1 week Pending Studies at Discharge: No Stand-Alone Forms: My [facility] Medications and DC Order Prescriptions: New metronidazole 500 mg Tablet 500 mg PO BID Qty: 9 0RF Santyl 250 unit/gram Ointment 1 applic EXT DAILY Qty: 30 0RF doxycycline hyclate 100 mg capsule 100 mg PO BID 4 Days Qty: 9 0RF levofloxacin 750 mg tablet 750 mg PO DAILY 4 Days Qty: 4 0RF Continued nystatin 100,000 unit/gram powder 1 applic topical DAILY 30 Days Qty: 60 2RF Rx Instructions: Apply to skin around wound daily with dressing changes. ferrous sulfate 325 mg (65 mg iron) tablet 325 mg PO DAILY Qty: 30 0RF ascorbate calcium (vitamin C) 500 mg tablet 500 mg PO DAILY Qty: 30 0RF (DME) OneTouch Verio test strips Strip See Dose Instructions .ROUTE .MEDSUPPLY Qty: 100 3RF Rx Instructions: Test blood sugars once a day metoprolol succinate 50 mg tablet extended release 24 hr 50 mg PO QAM Qty: 90 5RF Jardiance 10 mg tablet 10 mg PO DAILY Qty: 90 3RF (DME) BD Eclipse Luer-Jesus 21 gauge x 1 1/2" needle See Rx Instructions .Route Qty: 100 1RF Rx Instructions: use 1 with each testosterone injection (DME) syringe with needle [BD Luer-Jesus Syringe] 3 mL 20 gauge x 1 1/2" syringe See Rx Instructions .Route Qty: 100 0RF Rx Instructions: use a new syringe with each testosterone injection bupropion HCl 300 mg tablet extended release 24 hr 300 mg PO DAILY Qty: 30 3RF losartan 25 mg tablet 25 mg PO DAILY Qty: 90 3RF metformin 500 mg tablet extended release 24 hr 1,000 mg PO BID Qty: 360 1RF tamsulosin 0.4 mg capsule 0.4 mg PO BID Qty: 180 3RF atorvastatin 80 mg tablet 80 mg PO DAILY Qty: 90 3RF allopurinol 300 mg tablet 300 mg PO QAM Qty: 90 3RF (DME) lancets [OneTouch Delica Lancets] 33 gauge misc See Dose Instructions .ROUTE .MEDSUPPLY Qty: 100 Rx Instructions: USE TO TEST TWICE DAILY docusate sodium [Colace] 100 mg capsule 100 mg PO BID PRN (Reason: Constipation) diclofenac sodium [Arthritis Pain (diclofenac)] 1 % gel 2 g topical QID PRN (Reason: Pain) Rx Instructions: apply to single elbow, wrist or hand; for hand includes palm/fingers/back of hand apixaban 5 mg tablet 5 mg PO BID Qty: 180 3RF mupirocin 2 % ointment 1 applic topical TID PRN (Reason: scrotal sores) Qty: 22 6RF hydrocortisone [Anusol-HC] 2.5 % cream with perineal applicator 1 applic IN DAILY PRN (Reason: hemorrhoids) Qty: 30 0RF dutasteride [Avodart] 0.5 mg capsule 0.5 mg PO DAILY Qty: 90 3RF torsemide 20 mg tablet 10 mg PO DAILY PRN (Reason: Fluid Retention) Rx Instructions: PATIENT STATES HE TAKES 1/2 TABLET testosterone cypionate 200 mg/mL oil 100 mg subcut Q7D Qty: 2 5RF Rx Instructions: inject 0.5ml (100mg) every 7 days. mecobalamin (vitamin B12) 1 tab PO DAILY pyridoxine (vitamin B6) 1 tab PO DAILY naltrexone 50 mg tablet 25 mg PO DAILY Qty: 30 1RF Hold Instructions: needs appt for refill Rx Instructions: 1/2 tablet by Mouth DAILY cholecalciferol (vitamin D3) [Vitamin D3] 2,000 unit Capsule 2,000 unit PO QAM loratadine 10 mg tablet 10 mg PO DAILY PRN (Reason: ALLERGIES) tadalafil [Cialis] 5 mg tablet 5 mg PO DAILY PRN (Reason: Other) magnesium oxide 400 mg magnesium tablet 400 mg PO DAILY Qty: 30 0RF Held amoxicillin-pot clavulanate 875-125 mg tablet 1 tab PO BID Hold Instructions: Resume on 02/17/24. Resume after completing the course of 3 antibiotics for cellulitis on 11/20 Discharge Orders: Discharge Order (Routine); Ordered 02/12/24 Ordered By: Graeme Parra/Other Patient Handouts: Managing Type 2 Diabetes, Diabetes Foot Infections Tx, Special Foot Care for Diabetes Admission Data Admit Date/Time: 02/07/24 23:11 Attending Provider: Graeme Quinteros Admit Provider: Dania Gerard Primary Care Provider: Lewis Menendez Other Providers: Dania Gerard; Anisha Camp; Crystal Feliciano; Jenny Zepeda; Zachariah Apple; Milli Walker; Virginia Camacho; Dez Celestin; IRB Approved Study,Katharine
== END 2024-02-12 11:26 | disposition home or self-care (01) | DRG 638 ==
LOC: ED 17:49 → 3N 23:11 → SUATTDRO 23:11 → 3N 23:39

== ENCOUNTER 2024-03-16 18:45 | Inpatient (IN) ==
--- NOTE | 2024-03-16 19:36 | Emergency Department Note ---
Impression & Plan Osteomyelitis of great toe of left foot, Hypomagnesemia ED Provider Note HISTORY OF PRESENT ILLNESS: Patient is a 74-year-old male presenting with concern for left foot infection. Patient reports he is being followed with wound clinic and podiatry for a chronic wound on his left great toe. He states that he is currently on doxycycline and Levaquin. He states that he was seen by his providers today and referred to the emergency department due to concern for worsening infection. He also had an MRI of his foot done today that showed osteomyelitis and was referred to the emergency department. Patient denies any fevers. Reports has been taking Tylenol 500 mg every 4 hours for pain control and reports he is due for another dose. He is currently complaining of significant pain in the left great toe. He denies any nausea or vomiting. Denies any abdominal pain. Denies any chest pain or shortness of breath. ROS: as above PHYSICAL EXAM: Constitutional: Patient appears in no acute distress. HENT: Head: Normocephalic and atraumatic. Eyes: EOMI, PERRL Mouth/Throat: Mucous membranes moist. Neck: Trachea midline. Neck supple. Cardiovascular: Irregular rhythm. No murmurs, rubs or gallops. Intact distal pulses. Pulmonary/Chest: No respiratory distress. Breath sounds clear and equal bilaterally. No wheezes or rales. Abdominal: Abdomen soft, no tenderness, rebound or guarding. Musculoskeletal: - LLE: Patient's left great toe is diffusely necrotic. He also has a pressure ulcer wound on the medial portion of the pad of the toe. Slight erythema to the base of the great toe. Good cap refill and for other toes. Patient is noted to have diffuse swelling to the dorsal forefoot. No palpable crepitus. Skin: Warm and dry Psychiatric: Appropriate mood and affect for situation. Neurological: Alert and keenly responsive. CN II-XII grossly intact, moving all extremities equally and fully. MDM: - Vitals signs showed hypertension. - History obtained via patient. History as above. - Chronic conditions affecting care: obesity; HLD; DM-2; HTN; Afib - Differential diagnoses include, but are not limited to: Osteomyelitis; cellulitis; necrotizing fasciitis; diabetic foot wound - Order placed for continuous cardiac monitoring. At this time, monitor showed rate of 84 bpm with irregular rhythm, per my interpretation. - External medical records reviewed. Foot MRI from 03/16/2024 was reviewed. Patient had interval development of moderate marrow edema within the first and second distal phalanges concerning for osteitis versus early developing acute osteomyelitis. Noted to also have moderate dorsal forefoot subcutaneous edema. - EKG interpreted by myself showed atrial fibrillation. Rate 75 bpm. QT 360. No acute ischemic changes. - Laboratory workup interpreted by myself showed normal WBC; elevated INR (1.2); stable electrolytes other than hypomagnesemia (Mg 1.3); elevated lactic acid (2.5); normal troponin - Patient given 1g IV magnesium for electrolyte replacement. - Blood cultures obtained - CXR negative for pneumonia, per my interpretation - Patient empirically started on IV cefepime and daptomycin for antibiotic coverage. - Given 1L NS. Sepsis fluid volume resuscitation based on ideal body weight is 2100 mL. Echocardiogram dated 10/29/2020 showed the patient had a reduced EF at 50%. Patient was given additional 1 L normal saline (total 2L NS). - Discussion was had with piano case and bench assembler about patient's case and need for admission - Hospitalist consulted for admission - Patient admitted to [facility] for further evaluation and management. ASSESSMENT AND PLAN: Diagnosis: Left great toe osteomyelitis; hypomagnesemia Plan: Admit Past Med/Surg History Problem List (Updated 03/16/24 @ 20:27 by Jeny Silva MD) Hypomagnesemia (Acute) Osteomyelitis of great toe of left foot (Acute) Peripheral arterial disease 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 (Acute) Cellulitis (Acute) Diabetic ulcer of toe of left foot (Acute) Burn of left great toe (Acute) Class 3 obesity Hypogonadotropic hypogonadism in male Hypertension (Chronic) Coronary heart disease Atrial fibrillation Warfarin anticoagulation Diabetes type 2, controlled (Chronic) Diabetic peripheral neuropathy associated with type 2 diabetes mellitus (Chronic) Loss of protective sensation of skin of foot SABRINA (obstructive sleep apnea) Anemia Dyslipidemia Insomnia Chronic venous insufficiency (Chronic) 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) Non-healing surgical wound (Chronic) Anxiety (Chronic) BPH (benign prostatic hyperplasia) (Chronic) Gastroesophageal reflux disease (Chronic) Gout (Chronic) Medical History Tremor History of myocardial infarction Alopecia Atypical nevi Chronic pain Cor pulmonale (chronic) Degenerative joint disease involving multiple joints on both sides of body Erectile dysfunction Tinea pedis Vitamin D deficiency Surgical History S/P total knee arthroplasty S/P tonsillectomy H/O knee surgery H/O inguinal hernia repair History of hip surgery H/O hernia repair Hx of cholecystectomy History of bladder surgery Family History Mother FH: Parkinson's disease Breast cancer Father Coronary heart disease Hypertension Cardiac disease Melanoma Skin cancer Unknown Melanoma Denies family history of Ovarian cancer Prostate cancer Myocardial infarction Lung cancer Colorectal cancer Social History Smoking Status: Never smoker Second Hand Exposure: No; Do You Dip or Chew Tobacco: No; Hx Alcohol Use: No Hx Substance Use: No Preferred Language: Occitan Communication Ability: Effective Visual Impairment: Limited Hearing Ability: Normal 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 Beliefs That Will Affect Care: None marital status: Current Living Situation: Spouse current occupational status: retired current occupation: retired [email or web address] Feels Safe at Home: Yes Childhood Exposure to Second-Hand Smoke: Yes Diet: diabetic caffeine: Yes Dental Care, Regularly: No Physical Activity Frequency: Does not Exercise Seatbelt Use: always Sunscreen Use: Yes Do you think of yourself as: straight/heterosexual Assistive Devices: Cane and CPAP Allergies Allergies Allergy/AdvReac Type Severity Reaction Status Date / Time No Known Drug Allergies Allergy Verified 03/07/24 14:56 Home Meds Home Medications Medication Instructions Recorded Confirmed cholecalciferol (vitamin D3) 50 2,000 unit PO QAM 03/03/18 03/07/24 mcg (2,000 unit) capsule (Vitamin D3) lancets 33 gauge (OneTouch Delica #100 ea 11/04/18 02/18/24 Lancets) docusate sodium 100 mg capsule 100 mg PO BID PRN Constipation 10/21/20 03/07/24 (Colace) mecobalamin (vitamin B12) 1 tab PO DAILY 02/06/22 03/07/24 pyridoxine (vitamin B6) 1 tab PO DAILY 02/06/22 03/07/24 torsemide 20 mg tablet 10 mg PO DAILY PRN Fluid Retention 05/08/22 03/07/24 loratadine 10 mg tablet 10 mg PO DAILY PRN ALLERGIES 10/08/22 03/07/24 diclofenac sodium 1 % topical gel 2 g topical QID PRN Pain 02/05/23 03/07/24 (Arthritis Pain (diclofenac)) tadalafil 5 mg tablet (Cialis) 5 mg PO DAILY PRN Other 11/13/23 03/07/24 amoxicillin 875 mg-potassium 1 tab PO BID 02/07/24 03/02/24 clavulanate 125 mg tablet probiotic PO DAILY 02/14/24 03/07/24 Previous Rx's Medication Instructions Recorded ascorbate calcium (vitamin C) 500 500 mg PO DAILY #30 tabs 07/11/20 mg tablet ferrous sulfate 325 mg (65 mg 325 mg PO DAILY #30 tabs 07/11/20 iron) tablet mupirocin 2 % topical ointment 1 applic topical TID PRN scrotal 11/05/22 sores #22 grams metoprolol succinate 50 mg 50 mg PO QAM #90 tabs 03/10/23 tablet,extended release 24 hr apixaban 5 mg tablet 5 mg PO BID #180 tabs 03/17/23 empagliflozin 10 mg tablet 10 mg PO DAILY #90 tabs 06/14/23 (Jardiance) needle (disp) 21 G 21 gauge x 1 #100 ea 09/16/23 1/2" (BD Eclipse Luer-Jesus) syringe with needle 3 mL 20 gauge #100 ea 09/27/23 x 1 1/2" (BD Luer-Jesus Syringe) nystatin 100,000 unit/gram topical 1 applic topical DAILY 30 days #60 11/02/23 powder grams dutasteride 0.5 mg capsule 0.5 mg PO DAILY #90 caps 11/09/23 (Avodart) hydrocortisone 2.5 % topical cream 1 applic NH DAILY PRN hemorrhoids 11/09/23 with perineal applicator #30 grams (Anusol-HC) magnesium oxide 400 mg PO DAILY #30 tabs 11/13/23 bupropion HCl 300 mg 24 hr tablet, 300 mg PO DAILY #30 tabs 11/30/23 extended release losartan 25 mg tablet 25 mg PO DAILY #90 tabs 12/09/23 metformin 500 mg tablet,extended 1,000 mg (2 x 500 mg) PO BID #360 12/20/23 release 24 hr tabs tamsulosin 0.4 mg capsule 0.4 mg PO BID #180 caps 12/27/23 atorvastatin 80 mg tablet 80 mg PO DAILY #90 tabs 12/28/23 allopurinol 300 mg tablet 300 mg PO QAM #90 tabs 12/31/23 naltrexone 50 mg tablet 25 mg (1/2 x 50 mg) PO DAILY #30 01/06/24 tabs testosterone cypionate 200 mg/mL 100 mg (0.5 mL) subcut Q7D #2 mL 02/08/24 intramuscular oil collagenase clostridium histo. 250 1 applic EXT DAILY #30 grams 02/12/24 unit/gram topical ointment (Santyl) OneTouch Verio test strips (blood #100 ea 02/14/24 sugar diagnostic) doxycycline hyclate 100 mg capsule 100 mg PO DAILY #20 caps 03/07/24 levofloxacin 750 mg tablet 750 mg PO DAILY #10 tabs 03/07/24 Results & Data (ED) Vital Signs Vital Signs - 24 hr 03/16/24 18:47 03/16/24 20:00 Temperature 36.9 C Temperature Source Temporal Artery Scan Pulse Rate 85 Pulse Rate [Finger] 84 Respiratory Rate 18 18 Respiratory Effort / Characteristics Non-Labored Respiratory Depth Normal Blood Pressure 168/72 H Blood Pressure [Right Arm] 185/97 H Blood Pressure Mean 104 Blood Pressure Mean [Right Arm] 126 Pulse Oximetry 98 99 Oxygen Delivery Method Room Air Room Air Sepsis Recent Fever Within 48 Hours No Sepsis New/Unexplained Change in Mental Status N/A Sepsis Action Taken by Nursing No Action Required Laboratory Data 03/16/24 19:28 03/16/24 19:28 Lab Results 03/16/24 Range/Units 19:28 WBC 9.75 (4.8-10.8) K/ul RBC 5.65 (4.70-6.10) M/uL Hgb 15.8 (14.0-18.0) g/dl Hct 48.5 (42.0-52.0) % MCV 85.8 (80.0-100.0) fL MCH 28.0 (25.0-34.0) pg MCHC 32.6 (32.0-36.0) g/dL RDW Std Deviation 47.8 H (36.4-46.3) fL RDW Coeff of Rich 15.3 H (11.5-14.5) % Plt Count 298 (130-400) K/uL MPV 9.7 (9.4-12.4) fL Immature Gran % (Auto) 0.7 % Neut % (Auto) 69.1 % Lymph % (Auto) 16.2 % Bath % (Auto) 11.9 % Eos % (Auto) 1.3 % Baso % (Auto) 0.8 % Neut # (Auto) 6.73 H (1.40-6.50) K/uL Lymph # (Auto) 1.58 (1.20-3.40) K/uL Bath # (Auto) 1.16 H (0.11-0.59) K/uL Eos # (Auto) 0.13 (0.00-0.50) K/uL Baso # (Auto) 0.08 (0.00-0.20) K/uL Immature Gran # (Auto) 0.07 (0.01-0.20) K/uL PT 12.6 H (9.0-12.0) Seconds INR 1.2 H (0.9-1.1) APTT 33 H (21-31) Seconds PTT Ratio 1.2 Sodium 138 (136-145) mmol/L Potassium 3.7 (3.5-5.1) mmol/L Chloride 104 (98-107) mmol/L Carbon Dioxide 26 (21-32) mmol/L Anion Gap 8 (3-11) BUN 13 (6-23) mg/dl Creatinine 0.92 (0.6-1.4) mg/dl Est Cr Clr Drug Dosing 90.9 ml/min eGFR 86.75 BUN/Creatinine Ratio 14.1 (10-20) Glucose 91 (70-99(Fasting)) mg/dl Lactate 2.5 H* (0.4-2.0) mmol/L Calcium 9.0 (8.6-10.3) mg/dl Magnesium 1.3 L (1.7-2.4) mg/dl Total Bilirubin 1.0 (0.2-1.0) mg/dl AST 21 (13-39) U/L ALT 17 (7-52) U/L Alkaline Phosphatase 84 (34-104) U/L Troponin I High Sens 7.2 (0-20) pg/ml Total Protein 7.4 (6.0-8.3) gm/dl Albumin 3.8 (3.4-5.0) gm/dl Globulin 3.6 (2.5-4.0) gm/dl Albumin/Globulin Ratio 1.1 (0.9-2) Administered Medications Sodium Chloride (Nss) 1,000 mls @ 999 mls/hr IV .Q1H1M ONE Stop: 03/16/24 20:44 Last Admin: 03/16/24 19:54 Dose: 999 mls/hr Documented By: INDIGO Discontinued Medications Fentanyl Citrate (Fentanyl Citrate Pf 100 Mcg/2 Ml Vial) 50 mcg IV NOW STA Stop: 03/16/24 20:11 Last Admin: 03/16/24 20:18 Dose: 50 mcg Documented By: INDIGO Cefepime HCl (Maxipime 2000mg) 2,000 mg in 20 mls @ 5 mls/min IV NOW STA; Protocol Stop: 03/16/24 19:46 Last Admin: 03/16/24 19:54 Dose: 5 mls/min Documented By: INDIGO Acetaminophen (Ofirmev) 1,000 mg in 100 mls @ 400 mls/hr IV NOW STA Stop: 03/16/24 20:24 Last Admin: 03/16/24 20:18 Dose: 400 mls/hr Documented By: INDIGO Discharge Plan Visit Data Chief Complaint: Leg Injury/Pain Stated Complaint: INFECTION OF BONES IN LEG LT ED Provider: Jeny Silva Discharge Problem: Osteomyelitis of great toe of left foot, Hypomagnesemia Forms Stand Alone Forms: [facility] Prescriptions Prescriptions: No Action nystatin 100,000 unit/gram powder 1 applic topical DAILY 30 Days Qty: 60 2RF Rx Instructions: Apply to skin around wound daily with dressing changes. ferrous sulfate 325 mg (65 mg iron) tablet 325 mg PO DAILY Qty: 30 0RF ascorbate calcium (vitamin C) 500 mg tablet 500 mg PO DAILY Qty: 30 0RF metoprolol succinate 50 mg tablet extended release 24 hr 50 mg PO QAM Qty: 90 5RF Jardiance 10 mg tablet 10 mg PO DAILY Qty: 90 3RF (DME) BD Eclipse Luer-Jesus 21 gauge x 1 1/2" needle See Rx Instructions .Route Qty: 100 1RF Rx Instructions: use 1 with each testosterone injection (DME) syringe with needle [BD Luer-Jesus Syringe] 3 mL 20 gauge x 1 1/2" syringe See Rx Instructions .Route Qty: 100 0RF Rx Instructions: use a new syringe with each testosterone injection bupropion HCl 300 mg tablet extended release 24 hr 300 mg PO DAILY Qty: 30 3RF losartan 25 mg tablet 25 mg PO DAILY Qty: 90 3RF metformin 500 mg tablet extended release 24 hr 1,000 mg PO BID Qty: 360 1RF tamsulosin 0.4 mg capsule 0.4 mg PO BID Qty: 180 3RF atorvastatin 80 mg tablet 80 mg PO DAILY Qty: 90 3RF allopurinol 300 mg tablet 300 mg PO QAM Qty: 90 3RF (DME) OneTouch Verio test strips Strip See Dose Instructions .ROUTE .MEDSUPPLY Qty: 100 3RF Rx Instructions: Test blood sugars once a day (DME) lancets [The Beer X-ChangeTouch Delica Lancets] 33 gauge misc See Dose Instructions .ROUTE .MEDSUPPLY Qty: 100 Rx Instructions: USE TO TEST TWICE DAILY docusate sodium [Colace] 100 mg capsule 100 mg PO BID PRN (Reason: Constipation) diclofenac sodium [Arthritis Pain (diclofenac)] 1 % gel 2 g topical QID PRN (Reason: Pain) Rx Instructions: apply to single elbow, wrist or hand; for hand includes palm/fingers/back of hand apixaban 5 mg tablet 5 mg PO BID Qty: 180 3RF mupirocin 2 % ointment 1 applic topical TID PRN (Reason: scrotal sores) Qty: 22 6RF hydrocortisone [Anusol-HC] 2.5 % cream with perineal applicator 1 applic NH DAILY PRN (Reason: hemorrhoids) Qty: 30 0RF dutasteride [Avodart] 0.5 mg capsule 0.5 mg PO DAILY Qty: 90 3RF torsemide 20 mg tablet 10 mg PO DAILY PRN (Reason: Fluid Retention) Rx Instructions: PATIENT STATES HE TAKES 1/2 TABLET testosterone cypionate 200 mg/mL oil 100 mg subcut Q7D Qty: 2 5RF Rx Instructions: inject 0.5ml (100mg) every 7 days. mecobalamin (vitamin B12) 1 tab PO DAILY pyridoxine (vitamin B6) 1 tab PO DAILY probiotic PO DAILY naltrexone 50 mg tablet 25 mg PO DAILY Qty: 30 1RF Hold Instructions: needs appt for refill Rx Instructions: 1/2 tablet by Mouth DAILY doxycycline hyclate 100 mg capsule 100 mg PO DAILY Qty: 20 0RF levofloxacin 750 mg tablet 750 mg PO DAILY Qty: 10 0RF cholecalciferol (vitamin D3) [Vitamin D3] 2,000 unit Capsule 2,000 unit PO QAM loratadine 10 mg tablet 10 mg PO DAILY PRN (Reason: ALLERGIES) tadalafil [Cialis] 5 mg tablet 5 mg PO DAILY PRN (Reason: Other) magnesium oxide 400 mg magnesium tablet 400 mg PO DAILY Qty: 30 0RF amoxicillin-pot clavulanate 875-125 mg tablet 1 tab PO BID Hold Instructions: Resume on 02/17/24. Resume after completing the course of 3 antibiotics for cellulitis on 02/15 Santyl 250 unit/gram Ointment 1 applic EXT DAILY Qty: 30 0RF Referrals Referrals: Lewis Menendez DO [Primary Care Provider] -
[2024-03-16] MEDS: SODIUM CHLORIDE 0.9% 1,000 ML IV ONE ×2 (19:54→20:54)
[2024-03-16] MEDS: CEFEPIME 2000MG 2,000 MG/20 ML SYR IV STA (19:54)
[2024-03-16 20:03] LABS: Basophils # (auto) 0.08 K/uL (0.00-0.20); Basophils % (auto) 0.8 %; Eosinophils # (auto) 0.13 K/uL (0.00-0.50); Eosinophils % (auto) 1.3 %; Hematocrit (blood only) 48.5 % (42.0-52.0); Hemoglobin 15.8 g/dl (14.0-18.0); Immature Granulocytes # (auto) 0.07 K/uL (0.01-0.20); Immature Granulocytes % (auto) 0.7 %; Lymphocytes # (auto) 1.58 K/uL (1.20-3.40); Lymphocytes % (auto) 16.2 %; Mean Corpuscular Hgb Conc 32.6 g/dL (32.0-36.0); Mean Corpuscular Volume 85.8 fL (80.0-100.0); Mean Platelet Volume 9.7 fL (9.4-12.4); Monocytes # (auto) 1.16 K/uL (0.11-0.59); Monocytes % (auto) 11.9 %; Neutrophils # (auto) 6.73 K/uL (1.40-6.50); Neutrophils % (auto) 69.1 %; Platelet Count 298 K/uL (130-400); RDW Coefficient of Variation 15.3 % (11.5-14.5); RDW Standard Deviation 47.8 fL (36.4-46.3); Red Blood Count 5.65 M/uL (4.70-6.10); White Blood Count 9.75 K/ul (4.8-10.8)
[2024-03-16 20:05] LABS: Albumin Globulin Ratio 1.1 (0.9-2); Albumin Level 3.8 gm/dl (3.4-5.0); BUN Creatinine Ratio 14.1 (10-20); Creatinine Clr Calc Pharmacy 90.9 ml/min; Globulin 3.6 gm/dl (2.5-4.0); Magnesium 1.3 mg/dl (1.7-2.4); Potassium 3.7 mmol/L (3.5-5.1); Total Protein 7.4 gm/dl (6.0-8.3)
[2024-03-16 20:11] LABS: Troponin I High Sensitivity 7.2 pg/ml (0-20)
[2024-03-16 20:14] LABS: INR 1.2 (0.9-1.1); Partial Thromboplastin Ratio 1.2; Partial Thromboplastin Time 33 Seconds (21-31); Prothrombin Time 12.6 Seconds (9.0-12.0)
[2024-03-16] MEDS: ACETAMINOPHEN 1,000 MG/100 ML VIAL IV STA (20:18)
[2024-03-16] MEDS: fentaNYL citrate PF 100 MCG/2 ML VIAL IV STA (20:18)
[2024-03-16] MEDS: DAPTOmycin 550 MG in SYRINGE 0 ML IV SCH (20:49)
[2024-03-16] MEDS: MAGNESIUM SULFATE / D5W 1 GM/100 ML BAG IV STA (20:53)
--- NOTE | 2024-03-16 21:20 | History & Physical Report ---
Date of Service March 16, 2024 Assessment & Plan (1) Osteomyelitis of great toe of left foot: (2) 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: (3) Peripheral arterial disease: (4) Coronary heart disease: (5) Hypertension: (6) Atrial fibrillation: (7) Diabetes type 2, controlled: (8) Hypomagnesemia: Plan Diabetic left great toe osteomyelitis- N.p.o. after midnight MRI of left foot earlier in the day shows interval development of moderate marrow edema within the left first and second distal phalanges with mildly diminished T1 marrow signal suggesting osteitis, and possible early developing acute osteomyelitis. Moderate dorsal forefoot subcutaneous edema. Findings are new compared to compared to 02/08/2024 Continue daptomycin IV and cefepime IV begun in the ED Has been followed by wound care and podiatry in the outpatient setting Patient reports that he was to see vascular surgery in the outpatient setting tomorrow for possible stenting Peripheral arterial disease- Patient had arterial duplex performed on 03/08/2024, which was difficult to inte rpret due to edema Order aorta with runoff CTA this evening Consult vascular surgery as needed in the a.m. As noted, patient has been followed by wound care and podiatry in the outpatient wound clinic Patient is not on warfarin anticoagulation Temporarily hold apixaban this evening dose, for any potential procedure to be done tomorrow Diabetes mellitus- Hold empagliflozin, and metformin Placed on Accu-Cheks with NovoLog SSI Hyperlipidemia- Continue atorvastatin high-dose History of Present Illness Chief Complaint: The patient is referred to the emergency department by outpatient practitioners with concerns regarding persistent and worsening left great toe infection, for which he is currently on doxycycline and levofloxacin Primary Care Provider: Lewis Menendez DO The patient is a 74-year-old male with a past medical history including for arterial disease, diabetes mellitus type 2, diabetic left foot ulcer, 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 He is referred to the emergency department due to persistent and worsening left great toe infection, not responding to current antibiotics of doxycycline and levofloxacin. The patient had an outpatient MRI of foot earlier in the day today which showed osteitis/osteomyelitis, which prompted his referral to the emergency department. He reports that he has an appointment in the outpatient setting with vascular surgery for possible stent tomorrow Allergies Allergy/AdvReac Type Severity Reaction Status Date / Time No Known Drug Allergies Allergy . Verified 03/16/24 23:27 Home Medications Medication Instructions Recorded Confirmed Type cholecalciferol (vitamin D3) 50 2,000 unit PO QAM 03/03/18 03/16/24 History mcg (2,000 unit) capsule (Vitamin D3) lancets 33 gauge (OneTouch Delica #100 ea 11/04/18 02/18/24 History Lancets) ascorbate calcium (vitamin C) 500 500 mg PO DAILY #30 tabs 07/11/20 03/16/24 Rx mg tablet ferrous sulfate 325 mg (65 mg 325 mg PO DAILY #30 tabs 07/11/20 03/07/24 Rx iron) tablet docusate sodium 100 mg capsule 100 mg PO BID PRN Constipation 10/21/20 03/16/24 History (Colace) mecobalamin (vitamin B12) 1 tab PO DAILY 02/06/22 03/07/24 History pyridoxine (vitamin B6) 1 tab PO DAILY 02/06/22 03/07/24 History torsemide 20 mg tablet 10 mg PO DAILY PRN Fluid Retention 05/08/22 03/07/24 History loratadine 10 mg tablet 10 mg PO DAILY PRN ALLERGIES 10/08/22 03/07/24 History mupirocin 2 % topical ointment 1 applic topical TID PRN scrotal 11/05/22 03/07/24 Rx sores #22 grams diclofenac sodium 1 % topical gel 2 g topical QID PRN Pain 02/05/23 03/16/24 History (Arthritis Pain (diclofenac)) metoprolol succinate 50 mg 50 mg PO QAM #90 tabs 03/10/23 03/07/24 Rx tablet,extended release 24 hr apixaban 5 mg tablet 5 mg PO BID #180 tabs 03/17/23 03/16/24 Rx empagliflozin 10 mg tablet 10 mg PO DAILY #90 tabs 06/14/23 02/18/24 Rx (Jardiance) needle (disp) 21 G 21 gauge x 1 #100 ea 09/16/23 02/18/24 Rx 1/2" (BD Eclipse Luer-Jesus) syringe with needle 3 mL 20 gauge #100 ea 09/27/23 02/18/24 Rx x 1 1/2" (BD Luer-Jesus Syringe) nystatin 100,000 unit/gram topical 1 applic topical DAILY 30 days #60 11/02/23 03/07/24 Rx powder grams dutasteride 0.5 mg capsule 0.5 mg PO DAILY #90 caps 11/09/23 03/16/24 Rx (Avodart) hydrocortisone 2.5 % topical cream 1 applic UT DAILY PRN hemorrhoids 11/09/23 03/07/24 Rx with perineal applicator #30 grams (Anusol-HC) magnesium oxide 400 mg PO DAILY #30 tabs 11/13/23 03/07/24 Rx tadalafil 5 mg tablet (Cialis) 5 mg PO DAILY PRN Other 11/13/23 03/07/24 History bupropion HCl 300 mg 24 hr tablet, 300 mg PO DAILY #30 tabs 11/30/23 03/16/24 Rx extended release losartan 25 mg tablet 25 mg PO DAILY #90 tabs 12/09/23 03/07/24 Rx metformin 500 mg tablet,extended 1,000 mg (2 x 500 mg) PO BID #360 12/20/23 03/07/24 Rx release 24 hr tabs tamsulosin 0.4 mg capsule 0.4 mg PO BID #180 caps 12/27/23 03/07/24 Rx atorvastatin 80 mg tablet 80 mg PO DAILY #90 tabs 12/28/23 03/16/24 Rx allopurinol 300 mg tablet 300 mg PO QAM #90 tabs 12/31/23 03/16/24 Rx naltrexone 50 mg tablet 25 mg (1/2 x 50 mg) PO DAILY #30 01/06/24 03/07/24 Rx tabs testosterone cypionate 200 mg/mL 100 mg (0.5 mL) subcut Q7D #2 mL 02/08/24 03/07/24 Rx intramuscular oil collagenase clostridium histo. 250 1 applic EXT DAILY #30 grams 02/12/24 03/16/24 Rx unit/gram topical ointment (Santyl) OneTouch Verio test strips (blood #100 ea 02/14/24 03/02/24 Rx sugar diagnostic) probiotic PO DAILY 02/14/24 03/07/24 History amoxicillin 875 mg-potassium 1 tab PO BIDM #14 tabs 03/18/24 Rx clavulanate 125 mg tablet Past Med/Surg History Problem List (Updated 03/20/24 @ 00:07 by Alphonso Small) Osteomyelitis of great toe of left foot (Acute) Cellulitis (Acute) Class 3 obesity Hypogonadotropic hypogonadism in male Diabetic peripheral neuropathy associated with type 2 diabetes mellitus (Chronic) Loss of protective sensation of skin of foot SABRINA (obstructive sleep apnea) Anemia Dyslipidemia Insomnia Chronic venous insufficiency (Chronic) 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) Non-healing surgical wound (Chronic) Anxiety (Chronic) BPH (benign prostatic hyperplasia) (Chronic) Gastroesophageal reflux disease (Chronic) Gout (Chronic) Medical History Warfarin anticoagulation Tremor History of myocardial infarction Non-ST elevated MA Alopecia Atypical nevi Chronic pain Cor pulmonale (chronic) Degenerative joint disease involving multiple joints on both sides of body Erectile dysfunction Tinea pedis Vitamin D deficiency Surgical History S/P total knee arthroplasty b/l, then b/l revisions S/P tonsillectomy H/O knee surgery x4 H/O inguinal hernia repair 2016 History of hip surgery 04/2016 and 05/2016 H/O hernia repair 2016 Hx of cholecystectomy History of bladder surgery Family History Mother FH: Parkinson's disease Breast cancer Father Coronary heart disease Hypertension Cardiac disease Melanoma Skin cancer Unknown Melanoma Denies family history of Ovarian cancer Prostate cancer Myocardial infarction Lung cancer Colorectal cancer Social History Smoking Status: Never smoker Tobacco Type: Declines Second Hand Exposure: No; Do You Dip or Chew Tobacco: No; Hx Alcohol Use: No Hx Substance Use: No Preferred Language: Citizen Of [place] Communication Ability: Effective Visual Impairment: Limited Hearing Ability: Normal Cosmetologist Required: No Beliefs That Will Affect Care: None marital status: Current Living Situation: Spouse current occupational status: retired 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 Feels Safe at Home: Yes Childhood Exposure to Second-Hand Smoke: Yes Diet: diabetic caffeine: Yes Dental Care, Regularly: No Physical Activity Frequency: Does not Exercise Seatbelt Use: always Sunscreen Use: Yes Do you think of yourself as: straight/heterosexual Assistive Devices: Cane and CPAP Review of Systems Review of Systems: The patient denies chest pain, palpitations, shortness of breath, dyspnea on exertion, cough, sore throat, fevers, chills, sweats, weight change, fatigue, nausea, vomiting, diarrhea , constipation, abdominal pain, pelvic pain, blood in urine or stool, dysuria, urinary frequency or urgency, lightheadedness, dizziness, headache, memory loss, loss of consciousness, focal or generalized weakness, numbness or tingling in arms or right leg, generalized arthralgias or myalgias, back or neck pain, or night sweats. The review of systems is otherwise negative other than for that already noted above, and at least 10 systems have been reviewed. Physical Exam Physical Exam: The patient is awake, alert and oriented 3, well developed and well nourished, normocephalic and atraumatic, lying in bed and in no acute distress. HEENT--PERRL, EOMI, mucous membranes and oropharynx normal Neck--supple. No JVD. No bruits. Thyroid normal, trachea midline, no adenopathy. Heart--normal S1 and S2. No murmurs, rubs or gallops. Lungs--clear bilaterally, no respiratory distress, no accessory muscle use. Abdomen--normal bowel sounds and soft. Nontender. Nondistended. Obese Extremities--no cyanosis or clubbing. 1+ bilateral pretibial pitting edema. Decreased pulses bilaterally Dermatologic--normal skin turgor, normal color, no abnormal lymph nodes, no rash. Neurologic--cranial nerves II through XII grossly intact. Rheumatologic-limited exam left foot Psychiatric--normal affect. Results & Data Results & Data Vital Signs (Past 12 Hours) Vital Signs Temp Pulse Pulse Resp BP BP Pulse Ox 03/16/24 20:00 84 18 185/97 H 99 03/16/24 18:47 36.9 C 85 18 168/72 H 98 O2 Del Method 03/16/24 20:00 Room Air 03/16/24 18:47 Room Air Laboratory Results Laboratory Results WBC 9.75 K/ul (4.8-10.8) 03/16/24 19:28 RBC 5.65 M/uL (4.70-6.10) 03/16/24 19:28 Hgb 15.8 g/dl (14.0-18.0) 03/16/24: Hct 48.5 % (42.0-52.0) 03/16/24: MCV 85.8 fL (80.0-100.0) 03/16/24: MCH 28.0 pg (25.0-34.0) 03/16/24: MCHC 32.6 g/dL (32.0-36.0) 03/16/24 RDW Std Deviation 47.8 fL (36.4-46.3) H 03/16/24 RDW Coeff of Rich 15.3 % (11.5-14.5) H 03/16/24 Plt Count 298 K/uL (130-400) 03/16/24 MPV 9.7 fL (9.4-12.4) 03/16/24 Immature Gran % (Auto) 0.7 % 03/16/24 Neut % (Auto) 69.1 % 03/16/24: Lymph % (Auto) 16.2 % 03/16/24: [place] % (Auto) 11.9 % 03/16/24: Eos % (Auto) 1.3 % 03/16/24 Baso % (Auto) 0.8 % 03/16/24 Neut # (Auto) 6.73 K/uL (1.40-6.50) H 03/16/24: Lymph # (Auto) 1.58 K/uL (1.20-3.40) 03/16/24: [place] # (Auto) 1.16 K/uL (0.11-0.59) H 03/16/24: Eos # (Auto) 0.13 K/uL (0.00-0.50) 03/16/24 Baso # (Auto) 0.08 K/uL (0.00-0.20) 03/16/24: Immature Gran # (Auto) 0.07 K/uL (0.01-0.20) 03/16/24 19: PT 12.6 Seconds (9.0-12.0) H 03/16/24 19: INR 1.2 (0.9-1.1) H 03/16/24 19: APTT 33 Seconds (21-31) H 03/16/24 19: PTT Ratio 1.2 03/16/24 19: Sodium 138 mmol/L (136-145) 03/16/24 19: Potassium 3.7 mmol/L (3.5-5.1) 03/16/24 19: Chloride 104 mmol/L (98-107) 03/16/24 19: Carbon Dioxide 26 mmol/L (21-32) 03/16/24 19: Anion Gap 8 (3-11) 03/16/24 19: BUN 13 mg/dl (6-23) 03/16/24: Creatinine 0.92 mg/dl (0.6-1.4) 03/16/24: Est Cr Clr Drug Dosing 90.9 ml/min 03/16/24 19: eGFR 86.75 03/16/24 19: BUN/Creatinine Ratio 14.1 (10-20) 03/16/24 19: Glucose 91 mg/dl (70-99(Fasting)) 03/16/24 19: Lactate 2.5 mmol/L (0.4-2.0) H* 03/16/24 21:32 Calcium 9.0 mg/dl (8.6-10.3) 03/16/24 19: Magnesium 1.3 mg/dl (1.7-2.4) L 03/16/24 19: Total Bilirubin 1.0 mg/dl (0.2-1.0) 03/16/24 19: AST 21 U/L (13-39) 03/16/24 19: ALT 17 U/L (7-52) 03/16/24 19: Alkaline Phosphatase 84 U/L (34-104) 03/16/24 19: Troponin I High Sens 7.2 pg/ml (0-20) 03/16/24 19:28 Total Protein 7.4 gm/dl (6.0-8.3) 03/16/24 19: Albumin 3.8 gm/dl (3.4-5.0) 03/16/24 19: Globulin 3.6 gm/dl (2.5-4.0) 03/16/24 19: Albumin/Globulin Ratio 1.1 (0.9-2) 03/16/24: Procalcitonin < 0.02 ng/ml (0-0.5) 03/16/24 19: Urine Color Yellow 03/16/24 22:25 Urine Appearance Clear (Clear) 03/16/24 22: Urine pH 5.0 (4.5-7.5) 03/16/24 22:25 Ur Specific [place] > 1.045 (1.000-1.030) H 03/16/24 22:25 Urine Protein Negative (Negative) 03/16/24: Urine Glucose (UA) 3+ (Negative) H 03/16/24 22: Urine Ketones Trace (Negative) H 03/16/24 22: Urine Blood Negative (Negative) 03/16/24 22: Urine Nitrite Negative (Negative) 03/16/24: Urine Bilirubin Negative (Negative) 03/16/24: Urine Urobilinogen Negative (Negative) 03/16/24 22: Ur Leukocyte Esterase Negative (Negative) 03/16/24 22:25 Code Status & VTE Plan Code Status Full code VTE Prophylaxis Plan VTE Prophylaxis will be ordered: Yes PG Care Time/CCT Total # of Minutes Spent Total Time Spent with Patient: Total time spent is greater than 50% in coordination of care (as documented) at patient's floor/unit and/or counseling patient: Coding Level of Care Code 09636 INT INP/OBS CARE 3/75MIN Diagnoses Osteomyelitis of great toe of left foot M86.9 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 Diabetes type 2, controlled E11.9 Hypomagnesemia E83.42 (5) Hypertension Hypertension type: unspecified Qualified Code(s): I10 - Essential (primary) hypertension
[2024-03-16] MEDS: OPTIRAY 320 125ml IV ONE (22:07)
[2024-03-16] MEDS: MAGNESIUM SULFATE / D5W 1 GM/100 ML BAG IV SCH (22:18)
[2024-03-16 22:38] LABS: Appearance Urine Clear (Clear); Bilirubin Urine Negative (Negative); Blood Urine Negative (Negative); Color Urine Yellow; Glucose Urine UA 3+ (Negative); Ketones Urine Trace (Negative); Leukocyte Esterase Urine Negative (Negative); Nitrite Urine Negative (Negative); Protein Urine Negative (Negative); Specific Gravity Urine > 1.045 (1.000-1.030); Urobilinogen Urine Negative (Negative)
[2024-03-16] MEDS ORDERED: ONDANSETRON INJ 2 MG/ML 2 ML VIAL IV PRN (23:37)
--- NOTE | 2024-03-17 01:14 | CT Scan Report ---
Exam(s): CTA RUNOFF (A/P + Hubert Lower Ext) IV Amt: 120 cc opti 320 EXAM: CT Angiography Abdomen and Pelvis With Runoff to the Lower Extremities With Intravenous Contrast CLINICAL HISTORY: Reason for exam: left great toe Osteo. TECHNIQUE: Axial computed tomographic angiography images of the abdomen, pelvis and lower extremities with intravenous contrast. CTDI is 21 mGy and DLP is 2708 mGy-cm. Automated exposure control was utilized for the study. A dose lowering technique was utilized adhering to the principles of ALARA. MIP reconstructed images were created and reviewed. COMPARISON: No relevant prior studies available. FINDINGS: Artifact degrades image quality limiting the exam. VASCULATURE: Aorta: There are some atherosclerotic changes. No abdominal aortic aneurysm. No dissection. Celiac trunk and mesenteric arteries: No occlusion or significant stenosis. Renal arteries: No occlusion or significant stenosis. Right iliac arteries: There are some atherosclerotic changes. No occlusion or significant stenosis. Right femoral/popliteal arteries: There are some atherosclerotic changes. No occlusion or significant stenosis. Right calf/foot arteries: There are extensive atherosclerotic changes. A 3 vessel runoff is noted. There is No occlusion or significant stenosis. Left iliac arteries: There are some atherosclerotic changes. No occlusion or significant stenosis. Left femoral/popliteal arteries: There are some atherosclerotic changes. There No occlusion or significant stenosis. Left calf/foot arteries: There are extensive atherosclerotic changes. A 3 vessel runoff is noted. No occlusion or significant stenosis. Lung bases: No consolidation. Heart is enlarged. ABDOMEN: Liver: The heart is enlarged. Gallbladder and bile ducts: The patient is status post cholecystectomy.. No ductal dilation. Pancreas: No ductal dilation. No mass. Spleen: No splenomegaly. Adrenals: No mass. Kidneys and ureters: No hydronephrosis. No solid mass. Stomach and bowel: The stomach is distended containing retained foodstuffs. There is air and stool noted in the colon.. PELVIS: Appendix: No findings to suggest acute appendicitis. Bladder: No calculi are noted within the bladder.. Reproductive: There are calcifications within the prostate gland.. ABDOMEN, PELVIS and LOWER EXTREMITIES: Intraperitoneal space: No significant fluid collection. No free air. Bones/joints: There are marked degenerative changes in the spine. Patient is status post right total hip replacement. Patient is status post bilateral total knee replacements.. There are bilateral knee joint effusions. There are hypertrophic degenerative changes in the lower extremities. Soft tissues: There is soft tissue swelling and edema. Lymph nodes: No enlarged lymph nodes. IMPRESSION: No significant arterial stenotic disease identified. See discussion above Electronically signed by: Cedric Charles MD 03/17/24 01:13 AM
--- NOTE | 2024-03-17 01:57 | XRay Report ---
Exam(s): XR CXR 1 VIEW EXAM: XR Chest, 1 View CLINICAL HISTORY: Reason for exam: Sepsis. TECHNIQUE: Frontal views of the chest. COMPARISON: No relevant prior studies available. FINDINGS: Lungs: No consolidation. Pleural space: No pleural effusion is seen No pneumothorax. Heart: The heart is top normal in size.. Mediastinum: There is mild uncoiling of thoracic aorta.. Bones/joints: There are some degenerative changes in the spine.. IMPRESSION: No acute pulmonary disease. Electronically signed by: Cedric Charles MD 03/17/24 01:56 AM
[2024-03-17 04:45] LABS: Basophils # (auto) 0.07 K/uL (0.00-0.20); Basophils % (auto) 0.8 %; Eosinophils # (auto) 0.12 K/uL (0.00-0.50); Eosinophils % (auto) 1.4 %; Hematocrit (blood only) 40.7 % (42.0-52.0); Hemoglobin 13.2 g/dl (14.0-18.0); Immature Granulocytes # (auto) 0.06 K/uL (0.01-0.20); Immature Granulocytes % (auto) 0.7 %; Lymphocytes # (auto) 1.57 K/uL (1.20-3.40); Lymphocytes % (auto) 18.2 %; Mean Corpuscular Hemoglobin 27.9 pg (25.0-34.0); Mean Corpuscular Hgb Conc 32.4 g/dL (32.0-36.0); Mean Platelet Volume 9.7 fL (9.4-12.4); Monocytes # (auto) 1.21 K/uL (0.11-0.59); Neutrophils # (auto) 5.61 K/uL (1.40-6.50); Neutrophils % (auto) 64.9 %; Platelet Count 251 K/uL (130-400); RDW Coefficient of Variation 15.2 % (11.5-14.5); RDW Standard Deviation 48.1 fL (36.4-46.3); Red Blood Count 4.73 M/uL (4.70-6.10); White Blood Count 8.64 K/ul (4.8-10.8)
[2024-03-17 05:12] LABS: Albumin Level 3.2 gm/dl (3.4-5.0); BUN Creatinine Ratio 15.5 (10-20); Creatinine Clr Calc Pharmacy 109.9 ml/min; Magnesium 1.7 mg/dl (1.7-2.4); Phosphorus 3.2 mg/dl (2.5-4.9); Potassium 3.7 mmol/L (3.5-5.1)
[2024-03-17] MEDS: CEFEPIME 2000MG 2,000 MG/20 ML SYR IV SCH (05:33)
[2024-03-17] MEDS: allopurinoL 300 MG TAB PO SCH (08:55)
[2024-03-17] MEDS: ATORVASTATIN 40 MG TAB PO SCH (08:55)
[2024-03-17] MEDS: DAPTOmycin 600 MG in SYRINGE 0 ML IV SCH (08:56)
--- NOTE | 2024-03-17 09:27 | Infectious Disease Consult ---
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 He was seen by PCP on 03/07 and was noted to have increase in redness of toe so was planned for imaging and prescribed doxycycline and levofloxacin. Outpatient ESR 27, CRP 3.63, MRI with interval development of moderate marrow edema within the left first and second distal phalanges with mildly diminished T1 marrow signal, appearance suggests osteitis, early developing acute OM could appear similar; no collections. Here, he has been afebrile, vss. Initial labs with WBC 9.75, Cr 0.92, AST/ALT wnl. Lactate 2.5. UA negative. CXR neg. CTA aorta runoff without significant arterial stenotic disease. He has been started on daptomycin and cefepime. ID consulted 03/17. Aside from toe, his leg and foot appear at baseline and improved from before, which patient concurs. Since he is stable and just has the c/f osteomyelitis, Im going to stop IV abx so that we can get a better yield from cultures and resume his chronic suppressive augmentin. Will wait for podiatry input. 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 Please note that there will be no ID notes over the weekend. If questions or concerns arise, please contact the Infectious Disease Call Center and ask to speak with the covering ID physician. Dr. Apple will take over on Wednesday. Jenny Zepeda MD [facility], Division of Infectious Diseases Consultation Information Consultation was provided via telemedicine using two-way real-time interactive telecommunication between the patient and the telemedicine provider. For the duration of the visit, the provider was performing the assessment from a different facility than the patient. This includesuse of bluetooth stethoscope forauscultationperformed by the telepresenter that the telemedicine provider can hear if described in the physical exam. Jigmaker contact information: Please call [facility] Call Center . (Phone Number For Physician Use Only) After establishing a telemedicine visit, patient was: Patient was verified with two unique identifiers, Patient/authorized rep acknowledged consent and understanding and Gave permission to continue telehealth session Time Spent with Patient: Initial => 75 min History of Present Illness Reason for Consultation: toe osteo Attending Physician: Hakan Truong MD History of Present Illness 73yo M with h/o T2DM c/b neuropathy, right SURJIT in 04/2016 c/b PJI 2/2 MSSA in 05/2016 s/p I+D without hardware removal or replacement on chronic suppressive augmentin (had R hip superficial cx in 08/2023 which showed H parainfluenzae and Prevotella bivia, follows with [facility] ID), bl knee replacements, afib, CAD/GA, GERD, gout, recent admission 01/2024 with left foot cellulitis with great toe ulcer (MRI neg for OM, WCX with Enterobacter cloacae, treated broadly due to worsening after abx de-escalation with doxy/Levaquin/flagyl x 10d on 02/15) who presented on 03/16 with worsening left great toe not responding to outpatient abx. He was seen by PCP on 02/17 following his last admission and was noted to have ongoing foot swelling and pain, was placed on augmentin. He was seen by PCP on 03/07 and was noted to have increase in redness so was planned for imaging and prescribed doxycycline and levofloxacin. Outpatient ESR 27, CRP 3.63, MRI with interval development of moderate marrow edema within the left first and second distal phalanges with mildly diminished T1 marrow signal, appearance suggests osteitis, early developing acute OM could appear similar; no collections. Here, he has been afebrile, vss. Initial labs with WBC 9.75, Cr 0.92, AST/ALT wnl. Lactate 2.5. UA negative. CXR neg. CTA aorta runoff without significant arterial stenotic disease. He has been started on daptomycin and cefepime. ID consulted 03/17. On evaluation, patient reports that the toe had not been getting better. He does feel that the redness is resolved from the way it was before. However, he does still have some pain in the great toe. No chest pain, SOB, cough, vomiting, diarrhea. He has been taking doxy/levaquin only for the past 4 days. Allergies Allergy/AdvReac Type Severity Reaction Status Date / Time No Known Drug Allergies Allergy . Verified 03/16/24 23:27 Home Medications Medication Instructions Recorded Confirmed Type cholecalciferol (vitamin D3) 50 2,000 unit PO QAM 03/03/18 03/16/24 History mcg (2,000 unit) capsule (Vitamin D3) lancets 33 gauge ([facility] #100 ea 11/04/18 02/18/24 History Lancets) ascorbate calcium (vitamin C) 500 500 mg PO DAILY #30 tabs 07/11/20 03/16/24 Rx mg tablet ferrous sulfate 325 mg (65 mg 325 mg PO DAILY #30 tabs 07/11/20 03/07/24 Rx iron) tablet docusate sodium 100 mg capsule 100 mg PO BID PRN Constipation 10/21/20 03/16/24 History (Colace) mecobalamin (vitamin B12) 1 tab PO DAILY 02/06/22 03/07/24 History pyridoxine (vitamin B6) 1 tab PO DAILY 02/06/22 03/07/24 History torsemide 20 mg tablet 10 mg PO DAILY PRN Fluid Retention 05/08/22 03/07/24 History loratadine 10 mg tablet 10 mg PO DAILY PRN ALLERGIES 10/08/22 03/07/24 History mupirocin 2 % topical ointment 1 applic topical TID PRN scrotal 11/05/22 03/07/24 Rx sores #22 grams diclofenac sodium 1 % topical gel 2 g topical QID PRN Pain 02/05/23 03/16/24 History (Arthritis Pain (diclofenac)) metoprolol succinate 50 mg 50 mg PO QAM #90 tabs 03/10/23 03/07/24 Rx tablet,extended release 24 hr apixaban 5 mg tablet 5 mg PO BID #180 tabs 03/17/23 03/16/24 Rx empagliflozin 10 mg tablet 10 mg PO DAILY #90 tabs 06/14/23 02/18/24 Rx (Jardiance) needle (disp) 21 G 21 gauge x 1 #100 ea 09/16/23 02/18/24 Rx 1/2" (BD Eclipse Luer-Jesus) syringe with needle 3 mL 20 gauge #100 ea 09/27/23 02/18/24 Rx x 1 1/2" (BD Luer-Jesus Syringe) nystatin 100,000 unit/gram topical 1 applic topical DAILY 30 days #60 11/02/23 03/07/24 Rx powder grams dutasteride 0.5 mg capsule 0.5 mg PO DAILY #90 caps 11/09/23 03/16/24 Rx (Avodart) hydrocortisone 2.5 % topical cream 1 applic [place] DAILY PRN hemorrhoids 11/09/23 03/07/24 Rx with perineal applicator #30 grams (Anusol-HC) magnesium oxide 400 mg PO DAILY #30 tabs 11/13/23 03/07/24 Rx tadalafil 5 mg tablet (Cialis) 5 mg PO DAILY PRN Other 11/13/23 03/07/24 History bupropion HCl 300 mg 24 hr tablet, 300 mg PO DAILY #30 tabs 11/30/23 03/16/24 Rx extended release losartan 25 mg tablet 25 mg PO DAILY #90 tabs 12/09/23 03/07/24 Rx metformin 500 mg tablet,extended 1,000 mg (2 x 500 mg) PO BID #360 12/20/23 03/07/24 Rx release 24 hr tabs tamsulosin 0.4 mg capsule 0.4 mg PO BID #180 caps 12/27/23 03/07/24 Rx atorvastatin 80 mg tablet 80 mg PO DAILY #90 tabs 12/28/23 03/16/24 Rx allopurinol 300 mg tablet 300 mg PO QAM #90 tabs 12/31/23 03/16/24 Rx naltrexone 50 mg tablet 25 mg (1/2 x 50 mg) PO DAILY #30 01/06/24 03/07/24 Rx tabs testosterone cypionate 200 mg/mL 100 mg (0.5 mL) subcut Q7D #2 mL 02/08/24 03/07/24 Rx intramuscular oil collagenase clostridium histo. 250 1 applic EXT DAILY #30 grams 02/12/24 03/16/24 Rx unit/gram topical ointment (Santyl) OneTouch Verio test strips (blood #100 ea 02/14/24 03/02/24 Rx sugar diagnostic) probiotic PO DAILY 02/14/24 03/07/24 History doxycycline hyclate 100 mg capsule 100 mg PO DAILY #20 caps 03/07/24 03/16/24 Rx levofloxacin 750 mg tablet 750 mg PO DAILY #10 tabs 03/07/24 03/07/24 Rx Patient History Medical History Warfarin anticoagulation Tremor History of myocardial infarction Non-ST elevated [place] Alopecia Atypical nevi Chronic pain Cor pulmonale (chronic) Degenerative joint disease involving multiple joints on both sides of body Erectile dysfunction Tinea pedis Vitamin D deficiency Surgical History S/P total knee arthroplasty b/l, then b/l revisions S/P tonsillectomy H/O knee surgery x4 H/O inguinal hernia repair 2016 History of hip surgery 04/2016 and 05/2016 H/O hernia repair 2016 Hx of cholecystectomy History of bladder surgery Family History Mother FH: Parkinson's disease Breast cancer Father Coronary heart disease Hypertension Cardiac disease Melanoma Skin cancer Unknown Melanoma Denies family history of Ovarian cancer Prostate cancer Myocardial infarction Lung cancer Colorectal cancer Social History Smoking Status: Never smoker Tobacco Type: Declines Second Hand Exposure: No; Do You Dip or Chew Tobacco: No; Hx Alcohol Use: No Hx Substance Use: No Preferred Language: Kazakh Communication Ability: Effective Visual Impairment: Limited Hearing Ability: Normal 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 Beliefs That Will Affect Care: None marital status: Current Living Situation: Spouse current occupational status: retired 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 Physical Exam Physical Exam: General: Awake, alert, no acute distress HEENT: NC/AT, EOMI, mmm Neck: supple Lungs: respirations non-labored Heart: nl peripheral perfusion Abdomen: soft, NT/ND Ext: no LE edema Skin: bl lower legs with chronic skin changes at baseline, no redness on left foot, left great toe black discoloration, second left toe with some scabbed area on tip Neuro: moving all extremities Results & Data Vital Signs (Past 12 Hours) Vital Signs Temp Pulse Pulse Resp BP Pulse Ox O2 Del Method 03/17/24 07:54 36.5 C 62 18 152/74 H 96 Room Air, CPAP 03/17/24 03:51 36.6 C 64 18 121/74 96 Room Air, CPAP 03/17/24 03:15 72 03/16/24 23:51 Room Air, CPAP 03/16/24 23:51 36.4 C L 69 18 146/81 H 99 Room Air 03/16/24 22:00 70 18 163/75 H 98 Room Air Laboratory Results Labs reviewed. Diagnostic Findings Imaging reviewed.
--- NOTE | 2024-03-17 09:36 | Hospitalist Progress Note ---
Date of Service March 17, 2024 Assessment & Plan (1) Osteomyelitis of great toe of left foot: Plan: -on daptomycin and cefepime -MRI showing interval development of moderate marrow edema within the left first and second distal phalanges with mildly diminished T1 marrow signal suggesting osteitis, and possible early developing acute osteomyelitis. -ID consulted -podiatry consulted (2) 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: Plan: Hold empagliflozin, and metformin Placed on Accu-Cheks with NovoLog SSI (3) Peripheral arterial disease: Plan: -aorta with runoff CTA shows no significant arterial stenotic disease identified. (4) Coronary heart disease: Plan: -metoprolol, atorvastatin (5) Hypertension: Plan: -metoprolol -torsemide (6) Atrial fibrillation: Plan: -eliquis Admission and Anticipated Discharge Date Admission Date: March 16, 2024 Subjective No events overnight, pt resting comfortably in bed. Review of Systems Review of Systems: left toe gangrene, CONST: Negative for fever, body aches and chills. HENT: Negative for neck pain/stiffness, headache, congestion, sore throat, swelling. EYES: Negative for discharge/pain or vision changes. RESP: Negative for cough/hemoptysis and shortness of breath. CV: Negative chest pain, difficulty breathing, palpitations. ABD: Negative pain, nausea, vomiting. : Negative increase frequency, dysuria, blood in urine or stool. MUSC: Negative for muscle aches, edema. SKIN: Negative rash, lesions/sores. NEURO: Negative headache, dizziness, weakness. Physical Exam Physical Exam: GENERAL APPEARANCE NAD, activity normal for age, well developed/ well nourished, no cyanosis, pallor, or diaphoresis. EYES lids/conjunctiva normal. EARS/NOSE/THROAT Mucous membranes moist, nares normal, lips/teeth normal uvula midline without oral pharyngeal erythema, exudate or swelling TMs normal bilaterally. No lymphangitis/lymphedema. HEAD/NECK normocephalic atraumatic, no facial trauma, neck is supple. RESPIRATORY respiratory effort normal, speaks in full sentences, no tripod position, no accessory muscle use. Lungs clear to auscultation without rhonchi, wheezes, rales CARDIAC Regular rate and rhythm, no edema. ABDOMINAL Soft, ND/NT. No evidence of fluid wave. No pulsatile masses on exam, rebound tenderness, Parra sign or pain over Mcburney's point. MUSCLES/EXTREMITIES No abnormal range of motion, no swelling. SKIN Warm, pink and dry. No rashes, dermatoses, petechiae or lesions. Left greater toe with gangrene NEUROLOGICAL Speech is clear and appropriate. Normal level of consciousness. Gait and coordination are normal. 5/5 strength in all extremities. PSYCH Normal mood and affect. Judgement/competence is appropriate Results & Data Results & Data Vital Signs (Past 12 Hours) Vital Signs Temp Pulse Pulse Resp BP Pulse Ox O2 Del Method 03/17/24 07:54 36.5 C 62 18 152/74 H 96 Room Air, CPAP 03/17/24 03:51 36.6 C 64 18 121/74 96 Room Air, CPAP 03/17/24 03:15 72 03/16/24 23:51 Room Air, CPAP 03/16/24 23:51 36.4 C L 69 18 146/81 H 99 Room Air 03/16/24 22:00 70 18 163/75 H 98 Room Air PG Care Time/CCT Total # of Minutes Spent Total Time Spent with Patient: Total time spent is greater than 50% in coordination of care (as documented) at patient's floor/unit and/or counseling patient: Coding Level of Care Code 55092 SUB INP/OBS CARE 235MIN Diagnoses Osteomyelitis of great toe of left foot M86.9 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 (5) Hypertension Hypertension type: unspecified Qualified Code(s): I10 - Essential (primary) hypertension
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
[2024-03-17] MEDS: ACETAMINOPHEN 1000 MG/100 ML IV IV PRN (12:28)
[2024-03-17] MEDS: AMOXICILLIN/CLAVULANATE 875 MG TAB PO SCH (18:06)
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
[2024-03-17] MEDS: LORATADINE 10 MG TAB PO ONE (21:14)
--- NOTE | 2024-03-17 22:10 | Electrocardiogram Report ---
Test Reason : Blood Pressure : */* mmHG Vent. Rate : 75 BPM Atrial Rate : * BPM P-R Int : * ms QRS Dur : 94 ms QT Int : 360 ms P-R-T Axes : * 63 52 degrees QTcB Int : 402 ms Atrial fibrillation Low voltage QRS Cannot rule out Anterior infarct , age undetermined Abnormal ECG When compared with ECG of 13-Nov-2023 09:51, No significant change was found Confirmed by Don West ([id number]) on 03/17/2024 10:09:30 PM Referred By: Lewis Menendez Confirmed By: Don West
[2024-03-18 07:12] LABS: Basophils # (auto) 0.06 K/uL (0.00-0.20); Basophils % (auto) 0.8 %; Eosinophils # (auto) 0.14 K/uL (0.00-0.50); Eosinophils % (auto) 1.8 %; Hematocrit (blood only) 41.2 % (42.0-52.0); Hemoglobin 13.8 g/dl (14.0-18.0); Immature Granulocytes # (auto) 0.05 K/uL (0.01-0.20); Immature Granulocytes % (auto) 0.6 %; Lymphocytes # (auto) 0.88 K/uL (1.20-3.40); Mean Corpuscular Hemoglobin 28.6 pg (25.0-34.0); Mean Corpuscular Hgb Conc 33.5 g/dL (32.0-36.0); Mean Corpuscular Volume 85.3 fL (80.0-100.0); Monocytes # (auto) 0.99 K/uL (0.11-0.59); Monocytes % (auto) 12.4 %; Neutrophils # (auto) 5.87 K/uL (1.40-6.50); Neutrophils % (auto) 73.4 %; Platelet Count 274 K/uL (130-400); RDW Coefficient of Variation 15.3 % (11.5-14.5); RDW Standard Deviation 47.7 fL (36.4-46.3); Red Blood Count 4.83 M/uL (4.70-6.10); White Blood Count 7.99 K/ul (4.8-10.8)
[2024-03-18 07:28] LABS: Albumin Level 3.1 gm/dl (3.4-5.0); BUN Creatinine Ratio 15.6 (10-20); Calcium 8.1 mg/dl (8.6-10.3); Creatinine Clr Calc Pharmacy 144.2 ml/min; Magnesium 1.7 mg/dl (1.7-2.4); Phosphorus 3.1 mg/dl (2.5-4.9); Potassium 3.8 mmol/L (3.5-5.1)
[2024-03-18 08:00] VITALS: PULSE 80; RESP 16; TEMP 98.1; O2SAT 98
[2024-03-18] MEDS: guaiFENesin 600 MG TABCR PO SCH (09:22)
--- NOTE | 2024-03-18 10:10 | Discharge Summary ---
Discharge Summary Date of Service March 18, 2024 Principal Dx & Hospital Course #1 = Principal Diagnosis (1) Osteomyelitis of great toe of left foot: -on daptomycin and cefepime -MRI showing interval development of moderate marrow edema within the left first and second distal phalanges with mildly diminished T1 marrow signal suggesting osteitis, and possible early developing acute osteomyelitis. 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 He is referred to the emergency department due to persistent and worsening left great toe infection, not responding to current antibiotics of doxycycline and levofloxacin. The patient had an outpatient MRI of foot earlier in the day today which showed osteitis/osteomyelitis, which prompted his referral to the emergency department. He reports that he has an appointment in the outpatient setting with vascular surgery for possible stent tomorrow Discharge Exam GENERAL APPEARANCE NAD, activity normal for age, well developed/ well nourished, no cyanosis, pallor, or diaphoresis. EYES lids/conjunctiva normal. EARS/NOSE/THROAT Mucous membranes moist, nares normal, lips/teeth normal uvula midline without oral pharyngeal erythema, exudate or swelling TMs normal bilaterally. No lymphangitis/lymphedema. HEAD/NECK normocephalic atraumatic, no facial trauma, neck is supple. RESPIRATORY respiratory effort normal, speaks in full sentences, no tripod position, no accessory muscle use. Lungs clear to auscultation without rhonchi, wheezes, rales CARDIAC Regular rate and rhythm, no edema. ABDOMINAL Soft, ND/NT. No evidence of fluid wave. No pulsatile masses on exam, rebound tenderness, Parra sign or pain over Mcburney's point. MUSCLES/EXTREMITIES No abnormal range of motion, no swelling. SKIN Warm, pink and dry. No rashes, dermatoses, petechiae or lesions. Left greater toe with gangrene NEUROLOGICAL Speech is clear and appropriate. Normal level of consciousness. Gait and coordination are normal. 5/5 strength in all extremities. PSYCH Normal mood and affect. Judgement/competence is appropriate Discharge Plan Discharge Items Patient Disposition: Home - Self-Care Reason For Visit: LEFT GREAT TOE OSTEOMYELITIS Discharge Diagnosis: Left great toe osteomyelitis Activity: Resume your previous activity Non-emergency contact: Primary Care Provider Call non-emergency contact if: you have any medication questions Follow-up/Referrals: Lewis Menendez DO [Primary Care Provider] - Diet: Regular Addtl Attending Provider Instructions: Follow up with podiatry next week for toe amputation Pending Studies at Discharge: No Stand-Alone Forms: My [employer], Smoking Cessation Medications and DC Order Prescriptions: New amoxicillin-pot clavulanate 875-125 mg Tablet 1 tab PO BIDM Qty: 14 0RF Continued nystatin 100,000 unit/gram powder 1 applic topical DAILY 30 Days Qty: 60 2RF Rx Instructions: Apply to skin around wound daily with dressing changes. ferrous sulfate 325 mg (65 mg iron) tablet 325 mg PO DAILY Qty: 30 0RF ascorbate calcium (vitamin C) 500 mg tablet 500 mg PO DAILY Qty: 30 0RF metoprolol succinate 50 mg tablet extended release 24 hr 50 mg PO QAM Qty: 90 5RF Jardiance 10 mg tablet 10 mg PO DAILY Qty: 90 3RF (DME) BD Eclipse Luer-Jesus 21 gauge x 1 1/2" needle See Rx Instructions .Route Qty: 100 1RF Rx Instructions: use 1 with each testosterone injection (DME) syringe with needle [BD Luer-Jesus Syringe] 3 mL 20 gauge x 1 1/2" syringe See Rx Instructions .Route Qty: 100 0RF Rx Instructions: use a new syringe with each testosterone injection bupropion HCl 300 mg tablet extended release 24 hr 300 mg PO DAILY Qty: 30 3RF losartan 25 mg tablet 25 mg PO DAILY Qty: 90 3RF metformin 500 mg tablet extended release 24 hr 1,000 mg PO BID Qty: 360 1RF tamsulosin 0.4 mg capsule 0.4 mg PO BID Qty: 180 3RF atorvastatin 80 mg tablet 80 mg PO DAILY Qty: 90 3RF allopurinol 300 mg tablet 300 mg PO QAM Qty: 90 3RF (DME) OneTouch Verio test strips Strip See Dose Instructions .ROUTE .MEDSUPPLY Qty: 100 3RF Rx Instructions: Test blood sugars once a day (DME) lancets [OneTouch Delica Lancets] 33 gauge misc See Dose Instructions .ROUTE .MEDSUPPLY Qty: 100 Rx Instructions: USE TO TEST TWICE DAILY docusate sodium [Colace] 100 mg capsule 100 mg PO BID PRN (Reason: Constipation) diclofenac sodium [Arthritis Pain (diclofenac)] 1 % gel 2 g topical QID PRN (Reason: Pain) Rx Instructions: apply to single elbow, wrist or hand; for hand includes palm/fingers/back of hand apixaban 5 mg tablet 5 mg PO BID Qty: 180 3RF mupirocin 2 % ointment 1 applic topical TID PRN (Reason: scrotal sores) Qty: 22 6RF hydrocortisone [Anusol-HC] 2.5 % cream with perineal applicator 1 applic LA DAILY PRN (Reason: hemorrhoids) Qty: 30 0RF dutasteride [Avodart] 0.5 mg capsule 0.5 mg PO DAILY Qty: 90 3RF torsemide 20 mg tablet 10 mg PO DAILY PRN (Reason: Fluid Retention) Rx Instructions: PATIENT STATES HE TAKES 1/2 TABLET testosterone cypionate 200 mg/mL oil 100 mg subcut Q7D Qty: 2 5RF Rx Instructions: inject 0.5ml (100mg) every 7 days. mecobalamin (vitamin B12) 1 tab PO DAILY pyridoxine (vitamin B6) 1 tab PO DAILY probiotic PO DAILY naltrexone 50 mg tablet 25 mg PO DAILY Qty: 30 1RF Hold Instructions: needs appt for refill Rx Instructions: 1/2 tablet by Mouth DAILY cholecalciferol (vitamin D3) [Vitamin D3] 2,000 unit Capsule 2,000 unit PO QAM loratadine 10 mg tablet 10 mg PO DAILY PRN (Reason: ALLERGIES) tadalafil [Cialis] 5 mg tablet 5 mg PO DAILY PRN (Reason: Other) magnesium oxide 400 mg magnesium tablet 400 mg PO DAILY Qty: 30 0RF Santyl 250 unit/gram Ointment 1 applic EXT DAILY Qty: 30 0RF Discontinued doxycycline hyclate 100 mg capsule 100 mg PO DAILY Qty: 20 0RF Rx Instructions: BEGIN 03/07/24 X 10 DAYS levofloxacin 750 mg tablet 750 mg PO DAILY Qty: 10 0RF Discharge Orders: Discharge Order (Routine); Ordered 03/18/24 Ordered By: Hakan Truong Admission Data Admit Date/Time: 03/16/24 21:13 Attending Provider: Hakan Truong Admit Provider: Mike Chavez Primary Care Provider: Lewis Menendez Other Providers: Mike Chavez; Anthony Long; Joan Celestin; Dez Celestin; Anisha Camp; Crystal Feliciano; Jenny Zepeda; Zachariah Apple; Milli Walker; Virginia Camacho; [facility] Hospital Stay Data Consultations 03/16/24 20:20 ED Decision to Admit Stat 03/17/24 00:16 Consult Vascular Surgery Routine 03/17/24 07:29 Consult Infectious Diseases Routine Consult Podiatry Routine Diagnostic Imagining Performed 03/16/24 20:59 CTA abd aorta runof w con [CT ang AA runof w inc wo ifdon] Stat Pending Results Patient Have Any Pending Studies at Discharge: No Discharge Instructions Given to Patient (Per Discharging Provider) Follow up with podiatry next week for toe amputation Total Time Total Time Spent Total Time Spent (In Minutes): 50 Coding Level of Care Code 67372 INP/OBS DISCH >30 MIN Diagnoses Osteomyelitis of great toe of left foot M86.9 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
[2024-03-18 10:20] VITALS: BP 149/82
--- NOTE | 2024-03-21 04:13 | Billing Data ---
Date of Service March 21, 2024 Coding Level of Care Code 61688 INT INP/OBS CARE
== END 2024-03-18 13:20 | disposition home health service (06) | DRG 638 ==
LOC: ED 18:45 → 2N 21:13 → SUATTDRO 21:13 → 2N 22:49
DX: I27.81 Cor pulmonale (chronic); M86.8X7 Other osteomyelitis, ankle and foot; I25.10 Atherosclerotic heart disease of native coronary artery without angina pectoris; L97.522 Non-pressure chronic ulcer of other part of left foot with fat layer exposed; E83.42 Hypomagnesemia; Y92.89 Other specified places as the place of occurrence of the external cause; X19.XXXA Contact with other heat and hot substances, initial encounter; Z79.84 Long term (current) use of oral hypoglycemic drugs; E11.52 Type 2 diabetes mellitus with diabetic peripheral angiopathy with gangrene; I10 Essential (primary) hypertension; E11.42 Type 2 diabetes mellitus with diabetic polyneuropathy; E11.621 Type 2 diabetes mellitus with foot ulcer; T25.02 Burn of unspecified degree of foot; Z79.01 Long term (current) use of anticoagulants; E11.69 Type 2 diabetes mellitus with other specified complication; E66.813 Obesity, class 3; I48.91 Unspecified atrial fibrillation

== ENCOUNTER 2024-05-08 15:45 | Inpatient (IN) ==
--- NOTE | 2024-05-08 16:48 | XRay Report ---
INDICATION: Cough. TECHNIQUE: Frontal radiograph of the chest. COMPARISON: Radiograph from 04/04/2024. FINDINGS: Cardiomegaly. Mild to moderate pulmonary vascular congestion. No infiltrate, pleural effusion or pneumothorax. No acute osseous abnormality evident.Right-sided PICC line catheter tip in the superior vena cava. IMPRESSION: Mild to moderate pulmonary vascular congestion.Right-sided PICC line catheter tip in the superior vena cava. Electronically signed by Todd Christina 05-08-2024 4:48 PM
[2024-05-08 17:41] LABS: Appearance Urine Clear (Clear); Bacteria Urine Automated None Seen (None Seen); Bilirubin Urine Negative (Negative); Blood Urine Negative (Negative); Cast Urine Automated 0-2 /lpf (0-2); Color Urine Yellow; Epithelial Cell Urine Auto 0-2 /hpf (0-2); Glucose Urine UA Negative (Negative); Ketones Urine Negative (Negative); Leukocyte Esterase Urine 1+ (Negative); Nitrite Urine Negative (Negative); Protein Urine Negative (Negative); RBC Urine Automated 0-2 /hpf (0-2); Specific Gravity Urine 1.019 (1.000-1.030); Urobilinogen Urine Negative (Negative); WBC Urine Automated 0-5 /hpf (0-5)
[2024-05-08 17:41] LABS: Basophils # (auto) 0.09 K/uL (0.00-0.20); Basophils % (auto) 1.1 %; Eosinophils # (auto) 0.26 K/uL (0.00-0.50); Hemoglobin 14.4 g/dl (14.0-18.0); Immature Granulocytes # (auto) 0.04 K/uL (0.01-0.20); Immature Granulocytes % (auto) 0.5 %; Lymphocytes # (auto) 1.62 K/uL (1.20-3.40); Lymphocytes % (auto) 18.9 %; Mean Corpuscular Hemoglobin 27.3 pg (25.0-34.0); Mean Corpuscular Volume 85.4 fL (80.0-100.0); Mean Platelet Volume 9.9 fL (9.4-12.4); Monocytes # (auto) 0.93 K/uL (0.11-0.59); Monocytes % (auto) 10.9 %; Neutrophils # (auto) 5.61 K/uL (1.40-6.50); Neutrophils % (auto) 65.6 %; Platelet Count 262 K/uL (130-400); RDW Coefficient of Variation 15.9 % (11.5-14.5); RDW Standard Deviation 49.3 fL (36.4-46.3); Red Blood Count 5.27 M/uL (4.70-6.10); White Blood Count 8.55 K/ul (4.8-10.8)
[2024-05-08 17:57] LABS: Albumin Level 4.1 gm/dl (3.4-5.0); BUN Creatinine Ratio 18.1 (10-20); Bilirubin,Total 0.9 mg/dl (0.2-1.0); Calcium 9.2 mg/dl (8.6-10.3); Creatinine Clr Calc Pharmacy 109.9 ml/min; Globulin 4.1 gm/dl (2.5-4.0); Magnesium 1.5 mg/dl (1.7-2.4); Potassium 4.1 mmol/L (3.5-5.1); Total Protein 8.2 gm/dl (6.0-8.3)
[2024-05-08 18:03] LABS: Troponin I High Sensitivity 9.7 pg/ml (0-20)
[2024-05-08 18:08] LABS: INR 1.1 (0.9-1.1); Partial Thromboplastin Ratio 1.1; Partial Thromboplastin Time 29 Seconds (21-31); Prothrombin Time 11.9 Seconds (9.0-12.0)
--- NOTE | 2024-05-08 19:38 | Emergency Department Note ---
Impression & Plan Non-healing surgical wound, Osteomyelitis of great toe of left foot, Diabetic peripheral neuropathy associated with type 2 diabetes mellitus, Atrial fibrillation ED Provider Note NAME: MERLYN AUSTIN AGE: 74 SEX: M : 1950 ARRIVES VIA: Walk-In INFORMANT: Patient ED PROVIDER(S): Rudolph Siddiqi MD CHIEF COMPLAINT: Worsening left great toe wound infection status post amputation. Referred by wound clinic. PLAN: Disposition: Admit MEDICAL DECISION MAKING: The patient is a pleasant 74-year-old gentleman with a past medical history of type 2 diabetes, BPH, GERD, gout, SABRINA, afib on Eliquis who presents to the emergency department referred by the wound clinic for admission and additional IV antibiotics in the setting of being managed outpatient for left great toe infection/osteomyelitis by podiatry, Dr. Celestin s/p left great toe amputation on 03/23/2024 where he is being treated with IV Zosyn but also on oral Augmentin for suppression of chronic right hip infection. 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 He was seen in the wound clinic today and due to worsening with exposure of the bone was referred emergency department. Patient denies any fevers. He denies any cough, congestion, chest pain, shortness of breath, GI or symptoms. Recent culture grew pseudomonas. Of note, the patient did arrive to emergency department during time of high volume, acuity and prolonged emergency department waiting times. Critical pathways initiated from triage. On evaluation patient no acute distress, afebrile blood pressure in 170/70s and vital signs otherwise stable. Examination of the patient's left foot demonstrates status post amputation of the left great toe with residual stump/first metatarsal now exposed with overlying eschar and purulence. WBC, H/H and platelets within normal limits. Chemistry without metabolic acidosis. Lactic acid 2.5. Magnesium 1.5. LFTs unremarkable. High styptic troponin 9.7, within normal limits. Procalcitonin is not elevated. UA without evidence of infection. The patient agrees with plan for admission. Patient is currently on IV Zosyn. Additional abx per admitting team. Case was discussed with Dr Landa, admitting resident with Dr. Chavez, [facility] hospitalist, who will evaluate the patient for admission. Further management per admitting team. Triage Nursing notes reviewed and agree them. Prior/external medical records reviewed Vital Signs: reviewed Differential diagnosis: Cellulitis, abscess, MRSA infection, DVT, necrotizing fasciitis, dermatitis, drug eruption, allergic reaction, as well as other pathologies. ER treatment provided: See below. Diagnostics interpreted by me: ECG: Atrial fibrillation, 69 bpm, no ectopy, no overt ST elevation or depression. Cardiac Monitoring: An order for continuous cardiac monitoring was placed and demonstrated Atrial fibrillation, 69 bpm, no ectopy. Laboratory studies: See below Imaging studies: See below Consultation(s): Case was discussed with Dr Landa, admitting resident with Dr. Chavez, [facility] hospitalist, who will evaluate the patient for admission. HPI: The patient is a pleasant 74-year-old gentleman with a past medical history of type 2 diabetes, BPH, GERD, gout, SABRINA, afib on Eliquis who presents to the emergency department referred by the wound clinic for admission and additional IV antibiotics in the setting of being managed outpatient for left great toe infection/osteomyelitis by podiatry, Dr. Celestin s/p left great toe amputation on 03/23/2024 where he is being treated with IV Zosyn but also on oral Augmentin for suppression of chronic right hip infection. 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 He was seen in the wound clinic today and due to worsening with exposure of the bone was referred emergency department. Patient denies any fevers. He denies any cough, congestion, chest pain, shortness of breath, GI or symptoms. Recent culture grew pseudomonas. ROS: See above HPI for pertinent positives & negatives. A total of 10 systems reviewed and were otherwise negative. VITALS:See Below PHYSICAL EXAMINATION: GENERAL: Awake, alert, in no distress, BMI 50.3 HENT: Normocephalic, atraumatic. Oropharynx unremarkable. EYES: Normal conjunctiva. Sclera non-icteric. NECK: Supple. No nuchal rigidity. FROM. No JVD. RESPIRATORY: Clear to auscultation. CARDIAC: Regular rate, irregular rhythm. Extremities warm and well perfused. Pulses equal. ABDOMEN: Soft, non-distended. No tenderness to palpation. No rebound or guarding. No masses. MUSCULOSKELETAL: Chest examination reveals no tenderness. The back is symmetrical on inspection without obvious abnormality. There is no CVA tenderness to palpation. left foot demonstrates status post amputation of the left great toe with residual stump/first metatarsal now exposed with overlying eschar and purulence. LOWER EXTREMITIES: Calves are equal size bilaterally and non-tender. No edema. No discoloration. NEURO: Normal sensorium. No sensory or motor deficits noted. SKIN: No rash or jaundice noted. Rudolph Siddiqi MD Past Med/Surg History Problem List (Updated 05/10/24 @ 16:02 by Rudolph Siddiqi MD) Acute osteomyelitis of metatarsal bone of left foot Atrial fibrillation (Acute) dx 2020 when had [place], no pacer, follows with Dr. 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) Non-healing surgical wound (Acute) Medical History Extreme obesity History of COVID-19 2020 Anxiety Hx of deep venous thrombosis right > s/p knee surgery > prior to 2020 Neuropathy bilat feet Gout GERD (gastroesophageal reflux disease) SABRINA (obstructive sleep apnea) cpap Hypomagnesemia Peripheral arterial disease 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 Diabetic ulcer of toe of left foot follows with wound clinic Burn of left great toe seeing wound clinic Coronary heart disease non-obstructive per [place] cardio records Diabetes type 2, controlled Hypertension Warfarin anticoagulation Tremor History of myocardial infarction Non-ST elevated [place] 2020 > [place] Alopecia Chronic pain Cor pulmonale (chronic) Degenerative joint disease involving multiple joints on both sides of body Erectile dysfunction Tinea pedis Vitamin D deficiency Surgical History History of cardiac cath [place] > 2020 > pt unaware if stents History of tooth extraction S/P total knee arthroplasty bilat, then b/l revisions S/P tonsillectomy H/O knee surgery x4 H/O inguinal hernia repair 2016 History of hip surgery 04/2016 and 05/2016, right x2 H/O hernia repair 2016 Hx of cholecystectomy History of bladder surgery Family History Mother FH: Parkinson's disease Breast cancer Father Coronary heart disease Hypertension Cardiac disease Melanoma Skin cancer Unknown Melanoma Denies family history of Ovarian cancer Prostate cancer Myocardial infarction Lung cancer Colorectal cancer Social History Smoking Status: Never smoker Tobacco Type: Declines Second Hand Exposure: No; Do You Dip or Chew Tobacco: No; Tobacco Cessation Education Requested by Patient: No Hx Alcohol Use: No Hx Substance Use: No Preferred Language: Thai Communication Ability: Effective Visual Impairment: Limited Hearing Ability: Normal 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 Beliefs That Will Affect Care: None marital status: Current Living Situation: Spouse current occupational status: retired 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 Verified 05/08/24 14:37 Home Meds Home Medications Medication Instructions Recorded Confirmed cholecalciferol (vitamin D3) 50 2,000 unit PO QAM 03/03/18 05/08/24 mcg (2,000 unit) capsule (Vitamin D3) lancets 33 gauge (OneTouch Delica #100 ea 11/04/18 05/08/24 Lancets) docusate sodium 100 mg capsule 100 mg PO BID PRN Constipation 10/21/20 05/08/24 (Colace) mecobalamin (vitamin B12) 1 tab PO DAILY 02/06/22 05/08/24 pyridoxine (vitamin B6) 1 tab PO DAILY 02/06/22 05/08/24 loratadine 10 mg tablet 10 mg PO DAILY PRN ALLERGIES 10/08/22 05/08/24 diclofenac sodium 1 % topical gel 2 g topical QID PRN Pain 02/05/23 05/08/24 (Arthritis Pain (diclofenac)) tadalafil 5 mg tablet (Cialis) 5 mg PO DAILY PRN Other 11/13/23 05/08/24 probiotic 1 dose PO DAILY 02/14/24 05/08/24 omeprazole 20 mg tablet,delayed 20 mg PO QAM 03/21/24 05/08/24 release acetaminophen 325 mg tablet 650 mg PO QID PRN Pain 04/04/24 05/08/24 tramadol 50 mg tablet 50 mg PO Q8H PRN Pain 04/04/24 05/08/24 piperacillin-tazobactam 3.375 gram 3.375 g IV Q6H 05/01/24 05/08/24 intravenous solution Previous Rx's Medication Instructions Recorded ascorbate calcium (vitamin C) 500 500 mg PO DAILY #30 tabs 07/11/20 mg tablet ferrous sulfate 325 mg (65 mg 325 mg PO DAILY #30 tabs 07/11/20 iron) tablet mupirocin 2 % topical ointment 1 applic topical TID PRN scrotal 11/05/22 sores #22 grams metoprolol succinate 50 mg 50 mg PO QAM #90 tabs 03/10/23 tablet,extended release 24 hr empagliflozin 10 mg tablet 10 mg PO DAILY #90 tabs 06/14/23 (Jardiance) needle (disp) 21 G 21 gauge x 1 #100 ea 09/16/23 1/2" (BD Eclipse Luer-Jesus) syringe with needle 3 mL 20 gauge #100 ea 09/27/23 x 1 1/2" (BD Luer-Jesus Syringe) nystatin 100,000 unit/gram topical 1 applic topical DAILY 30 days #60 11/02/23 powder grams dutasteride 0.5 mg capsule 0.5 mg PO DAILY #90 caps 11/09/23 (Avodart) hydrocortisone 2.5 % topical cream 1 applic MT DAILY PRN hemorrhoids 11/09/23 with perineal applicator #30 grams (Anusol-HC) magnesium oxide 400 mg PO DAILY #30 tabs 11/13/23 bupropion HCl 300 mg 24 hr tablet, 300 mg PO DAILY #30 tabs 11/30/23 extended release losartan 25 mg tablet 25 mg PO DAILY #90 tabs 12/09/23 metformin 500 mg tablet,extended 1,000 mg (2 x 500 mg) PO BID #360 12/20/23 release 24 hr tabs tamsulosin 0.4 mg capsule 0.4 mg PO BID #180 caps 12/27/23 atorvastatin 80 mg tablet 80 mg PO DAILY #90 tabs 12/28/23 allopurinol 300 mg tablet 300 mg PO QAM #90 tabs 12/31/23 naltrexone 50 mg tablet 25 mg (1/2 x 50 mg) PO DAILY #30 01/06/24 tabs testosterone cypionate 200 mg/mL 100 mg (0.5 mL) subcut Q7D #2 mL 02/08/24 intramuscular oil collagenase clostridium histo. 250 1 applic EXT DAILY #30 grams 02/12/24 unit/gram topical ointment (Santyl) OneTouch Verio test strips (blood #100 ea 02/14/24 sugar diagnostic) amoxicillin 875 mg-potassium 1 tab PO BIDM #14 tabs 03/18/24 clavulanate 125 mg tablet torsemide 20 mg tablet 10 mg (1/2 x 20 mg) PO DAILY PRN 03/28/24 Fluid Retention #60 tabs apixaban 5 mg tablet 5 mg PO BID #180 tabs 04/04/24 Results & Data (ED) Vital Signs Vital Signs - 24 hr 05/08/24 16:06 05/08/24 18:15 05/08/24 20:00 Temperature 36.8 C Temperature Source Temporal Artery Scan Pulse Rate 84 Pulse Rate [Apical] 74 83 Respiratory Rate 18 18 18 Respiratory Effort / Characteristics Non-Labored Spontaneous Respiratory Depth Normal Blood Pressure 186/92 H Blood Pressure [Right Arm] 172/73 H 185/80 H Blood Pressure Mean 123 Blood Pressure Mean [Right Arm] 106 115 Blood Pressure Position Sitting Pulse Oximetry 98 97 96 Oxygen Delivery Method Room Air Room Air Sepsis Recent Fever Within 48 Hours No Sepsis New/Unexplained Change in Mental Status No Sepsis Action Taken by Nursing No Action Required Laboratory Data Attestation: I reviewed the patient's lab results. 05/10/24 05:32 05/10/24 05:32 Lab Results 05/08/24 05/08/24 05/08/24 Range/Units 17:12 17:20 18:47 WBC 8.55 (4.8-10.8) K/ul RBC 5.27 (4.70-6.10) M/uL Hgb 14.4 (14.0-18.0) g/dl Hct 45.0 (42.0-52.0) % MCV 85.4 (80.0-100.0) fL MCH 27.3 (25.0-34.0) pg MCHC 32.0 (32.0-36.0) g/dL RDW Std Deviation 49.3 H (36.4-46.3) fL RDW Coeff of Rich 15.9 H (11.5-14.5) % Plt Count 262 (130-400) K/uL MPV 9.9 (9.4-12.4) fL Immature Gran % (Auto) 0.5 % Neut % (Auto) 65.6 % Lymph % (Auto) 18.9 % [place] % (Auto) 10.9 % Eos % (Auto) 3.0 % Baso % (Auto) 1.1 % Neut # (Auto) 5.61 (1.40-6.50) K/uL Lymph # (Auto) 1.62 (1.20-3.40) K/uL [place] # (Auto) 0.93 H (0.11-0.59) K/uL Eos # (Auto) 0.26 (0.00-0.50) K/uL Baso # (Auto) 0.09 (0.00-0.20) K/uL Immature Gran # (Auto) 0.04 (0.01-0.20) K/uL PT 11.9 (9.0-12.0) Seconds INR 1.1 (0.9-1.1) APTT 29 (21-31) Seconds PTT Ratio 1.1 Sodium 138 (136-145) mmol/L Potassium 4.1 (3.5-5.1) mmol/L Chloride 103 (98-107) mmol/L Carbon Dioxide 28 (21-32) mmol/L Anion Gap 7 (3-11) BUN 15 (6-23) mg/dl Creatinine 0.83 (0.6-1.4) mg/dl Est Cr Clr Drug Dosing 109.9 ml/min eGFR 91.27 BUN/Creatinine Ratio 18.1 (10-20) Glucose 84 (70-99(Fasting)) mg/dl Lactate 2.5 H* (0.4-2.0) mmol/L Calcium 9.2 (8.6-10.3) mg/dl Magnesium 1.5 L (1.7-2.4) mg/dl Total Bilirubin 0.9 (0.2-1.0) mg/dl AST 24 (13-39) U/L ALT 14 (7-52) U/L Alkaline Phosphatase 78 (34-104) U/L Troponin I High Sens 9.7 (0-20) pg/ml Total Protein 8.2 (6.0-8.3) gm/dl Albumin 4.1 (3.4-5.0) gm/dl Globulin 4.1 H (2.5-4.0) gm/dl Albumin/Globulin Ratio 1.0 (0.9-2) Procalcitonin < 0.02 (0-0.5) ng/ml Urine Color Yellow Urine Appearance Clear (Clear) Urine pH 6.0 (4.5-7.5) Ur Specific [place] 1.019 (1.000-1.030) Urine Protein Negative (Negative) Urine Glucose (UA) Negative (Negative) Urine Ketones Negative (Negative) Urine Blood Negative (Negative) Urine Nitrite Negative (Negative) Urine Bilirubin Negative (Negative) Urine Urobilinogen Negative (Negative) Ur Leukocyte Esterase 1+ H (Negative) Urine WBC (Auto) 0-5 (0-5) /hpf Urine RBC (Auto) 0-2 (0-2) /hpf U Hyaline Cast (Auto) 0-2 (0-2) /lpf U Epithel Cells (Auto) 0-2 (0-2) /hpf Urine Bacteria (Auto) None Seen (None Seen) Administered Medications Allopurinol (Allopurinol 300 Mg Tab) 300 mg PO QAM JESSIE Stop: 06/08/24 08:59 Last Admin: 05/10/24 08:05 Dose: 300 mg Documented By: Admin: 05/09/24 09:58 Dose: 300 mg Documented By: MILA Bupropion HCl (Bupropion Xl 300 Mg Tabcr) 300 mg PO DAILY JESSIE Stop: 06/08/24 08:59 Last Admin: 05/10/24 08:05 Dose: 300 mg Documented By: Admin: 05/09/24 09:58 Dose: 300 mg Documented By: MILA Finasteride (Finasteride 5 Mg Tab) 5 mg PO DAILY JESSIE Stop: 06/08/24 08:59 Last Admin: 05/10/24 08:04 Dose: 5 mg Documented By: Admin: 05/09/24 09:59 Dose: 5 mg Documented By: MILA Heparin Sodium (Beef Lung) (Heparin 10 Unit/Ml 5 Ml Flush) 5 ml FLUSH PRN PRN PRN Reason: Flush Stop: 06/08/24 03:41 Last Admin: 05/10/24 14:35 Dose: 5 ml Documented By: Admin: 05/10/24 08:13 Dose: 5 ml Documented By: Admin: 05/09/24 15:08 Dose: 5 ml Documented By: MILA Heparin Sodium/Dextrose (Heparin 23469 Unit/500 Ml D5w) 25,000 units in 500 mls @ 36 mls/hr IV .[id number] JESSIE; Protocol Stop: 06/07/24 22:14 Last Titration: 05/10/24 10:23 Dose: Infused Documented By: MARYJO Co-signed By: BILL Titration: 05/10/24 07:33 Dose: Infused Documented By: MARYJO Co-signed By: TANNER Titration: 05/10/24 03:30 Dose: 1,800 units/hr, 36 mls/hr Documented By: TANNER Co-signed By: PAH Admin: 05/09/24 14:47 Dose: 1,800 units/hr, 36 mls/hr Documented By: MILA Co-signed By: CSE Titration: 05/09/24 14:47 Dose: Infused Documented By: MILA Co-signed By: CSE Admin: 05/09/24 07:14 Dose: 1,800 units/hr, 36 mls/hr Documented By: MILA Co-signed By: ANS Titration: 05/09/24 07:14 Dose: Infused Documented By: MILA Co-signed By: ANS Admin: 05/08/24 23:26 Dose: 1,800 units/hr, 36 mls/hr Documented By: ANS Co-signed By: YUMIKO Meropenem 2,000 mg/ Sodium (Chloride) 100 mls @ 33.333 mls/hr IV Q8H [facility]; Protocol Stop: 06/20/24 13:59 Last Admin: 05/10/24 13:40 Dose: 33.3 mls/hr Documented By: Infusion: 05/10/24 09:21 Dose: Infused Documented By: Admin: 05/10/24 05:48 Dose: 33.3 mls/hr Documented By: Infusion: 05/10/24 01:59 Dose: Infused Documented By: Admin: 05/09/24 22:58 Dose: 33.3 mls/hr Documented By: Infusion: 05/09/24 17:45 Dose: Infused Documented By: Admin: 05/09/24 14:39 Dose: 33.3 mls/hr Documented By: MILA Magnesium Sulfate/Dextrose (Magnesium Sulfate / D5w) 1 gm in 100 mls @ 50 mls/hr IV Q2H JESSIE Stop: 05/10/24 17:59 Last Admin: 05/10/24 14:21 Dose: 50 mls/hr Documented By: MARYJO Insulin Aspart (Insulin Aspart Per Unit Charge) 0 units SC ACHS [facility] Stop: 06/08/24 11:29 Last Admin: 05/10/24 11:53 Dose: 3 units Documented By: MARYJO Co-signed By: MARK ANTHONY Admin: 05/10/24 08:14 Dose: 5 units Documented By: MARYJO Co-signed By: [facility] Admin: 05/09/24 21:45 Dose: Not Given Documented By: Admin: 05/09/24 17:49 Dose: Not Given Documented By: Admin: 05/09/24 12:39 Dose: Not Given Documented By: MILA Co-signed By: APR Lactobacillus Acidophilus (Advanced Probiotic 625 Mg Capsule) 625 mg PO DAILY [facility] Stop: 06/08/24 08:59 Last Admin: 05/10/24 08:04 Dose: 625 mg Documented By: Admin: 05/09/24 09:58 Dose: 625 mg Documented By: MILA Loratadine (Loratadine 10 Mg Tab) 10 mg PO DAILY PRN PRN Reason: ALLERGIES Stop: 06/07/24 22:14 Last Admin: 05/10/24 08:04 Dose: 10 mg Documented By: MARYJO Losartan Potassium (Losartan Potassium 25 Mg Tab) 25 mg PO DAILY JESSIE Stop: 06/08/24 08:59 Last Admin: 05/10/24 08:05 Dose: 25 mg Documented By: Admin: 05/09/24 09:58 Dose: 25 mg Documented By: MILA Magnesium Oxide (Magnesium Oxide 400 Mg Tab) 400 mg PO DAILY [facility] Stop: 06/08/24 08:59 Last Admin: 05/10/24 08:05 Dose: 400 mg Documented By: Admin: 05/09/24 09:58 Dose: 400 mg Documented By: MILA Metoprolol Succinate (Metoprolol Succ 50mg Ext Rel Tab) 50 mg PO [facility] Stop: 06/08/24 08:59 Last Admin: 05/10/24 08:04 Dose: 50 mg Documented By: Admin: 05/09/24 10:59 Dose: 50 mg Documented By: MILA Naltrexone HCl (Naltrexone Hcl 50 Mg Tab) 25 mg PO DAILY [facility] Stop: 06/08/24 08:59 Last Admin: 05/10/24 08:04 Dose: 25 mg Documented By: Admin: 05/09/24 09:59 Dose: 25 mg Documented By: MILA Nystatin (Nystatin Powder 15gm Btl) 1 appln EXT DAILY [facility] Stop: 06/08/24 08:59 Last Admin: 05/10/24 08:05 Dose: 1 appln Documented By: Admin: 05/09/24 10:59 Dose: 1 appln Documented By: MILA Pantoprazole Sodium (Pantoprazole 40 Mg Tab) 40 mg PO [facility] Stop: 06/08/24 08:59 Last Admin: 05/10/24 08:04 Dose: 40 mg Documented By: Admin: 05/09/24 09:58 Dose: 40 mg Documented By: MILA Tamsulosin HCl (Tamsulosin Hcl 0.4 Mg Cap) 0.4 mg PO BID [facility] Stop: 06/07/24 22:14 Last Admin: 05/10/24 08:05 Dose: 0.4 mg Documented By: Admin: 05/09/24 21:46 Dose: 0.4 mg Documented By: Admin: 05/09/24 09:58 Dose: 0.4 mg Documented By: Admin: 05/08/24 22:49 Dose: 0.4 mg Documented By: NANCY Tramadol HCl (Tramadol Hcl 50 Mg Tablet) 50 mg PO Q8H PRN PRN Reason: Pain Stop: 06/07/24 22:14 Last Admin: 05/09/24 17:46 Dose: 50 mg Documented By: Admin: 05/09/24 05:50 Dose: 50 mg Documented By: NANCY Discontinued Medications Diazepam (Diazepam 5 Mg/Ml 10ml Vial) 10 mg IV NOW STA Stop: 05/09/24 20:09 Last Admin: 05/09/24 20:32 Dose: 10 mg Documented By: TANNER Diphenhydramine HCl (Diphenhydramine 50 Mg/Ml Vial) Confirm Administered Dose 50 mg .ROUTE .STK-MED ONE Stop: 05/09/24 16:07 Last Admin: 05/09/24 16:17 Dose: 50 mg Documented By: ROZINA Fentanyl Citrate (Fentanyl Citrate Pf 100 Mcg/2 Ml Vial) Confirm Administered Dose 100 mcg .ROUTE .STK-MED ONE Stop: 05/09/24 16:03 Last Increment: 05/09/24 16:49 Dose: 75 mcg Documented By: ROZINA Fentanyl Citrate (Fentanyl Citrate Pf 100 Mcg/2 Ml Vial) Confirm Administered Dose 100 mcg .ROUTE .STK-MED ONE Stop: 05/09/24 16:24 Last Admin: 05/09/24 16:50 Dose: 100 mcg Documented By: ROZINA Heparin Sodium/Dextrose (Heparin Iv Adult Wt-Based Standard *No* Initial Bolus Protocol) 1 each IV ONE STA; Protocol Stop: 05/08/24 22:16 Last Admin: 05/08/24 23:31 Dose: 1 each Documented By: NANCY Hydromorphone HCl (Hydromorphone Inj 0.5 Mg/0.5 Ml Syr) 0.5 mg IV NOW STA Stop: 05/09/24 18:02 Last Admin: 05/09/24 18:12 Dose: 0.5 mg Documented By: PATRIC Acetaminophen (Ofirmev) 1,000 mg in 100 mls @ 400 mls/hr IV NOW STA Stop: 05/08/24 19:51 Last Infusion: 05/08/24 20:35 Dose: Infused Documented By: Admin: 05/08/24 20:18 Dose: 400 mls/hr Documented By: KATIA Daptomycin 900 mg/ Syringe 18 mls @ 9 mls/min IV ONE ONE; Protocol Stop: 05/08/24 22:16 Last Admin: 05/08/24 22:48 Dose: 9 mls/min Documented By: NANCY Piperacillin Sod/Tazobactam Sod (Zosyn) 4.5 gm in 100 mls @ 25 mls/hr IV Q8H JESSIE; Protocol Stop: 05/15/24 22:59 Last Admin: 05/09/24 00:15 Dose: Not Given Documented By: NANCY Piperacillin Sod/Tazobactam Sod (Zosyn) 4.5 gm in 100 mls @ 25 mls/hr IV Q8H JESSIE; Protocol Stop: 05/16/24 09:59 Last Infusion: 05/09/24 14:28 Dose: Infused Documented By: Admin: 05/09/24 10:28 Dose: 25 mls/hr Documented By: MILA Insulin Aspart (Insulin Aspart Per Unit Charge) 0 units SC ACHS JESSIE Stop: 06/07/24 22:14 Last Admin: 05/08/24 22:38 Dose: Not Given Documented By: NANCY Lidocaine HCl (Lidocaine 1% Local 20 Ml Vial) Confirm Administered Dose 20 ml .ROUTE .STK-MED ONE Stop: 05/09/24 15:08 Last Admin: 05/09/24 16:16 Dose: 20 ml Documented By: EILEEN Midazolam HCl (Midazolam Hcl 5 Mg/Ml 1 Ml Vial) Confirm Administered Dose 5 mg .ROUTE .STK-MED ONE Stop: 05/09/24 16:03 Last Increment: 05/09/24 16:49 Dose: 1 mg Documented By: ROZINA Midazolam HCl (Midazolam Hcl 5 Mg/Ml 1 Ml Vial) Confirm Administered Dose 5 mg .ROUTE .STK-MED ONE Stop: 05/09/24 16:47 Last Admin: 05/09/24 16:50 Dose: 5 mg Documented By: ROZINA Nicardipine HCl (Nicardipine 2,000 Mcg/20 Ml Syr) Confirm Administered Dose 2,000 mcg .ROUTE .STK-MED ONE Stop: 05/09/24 16:08 Last Admin: 05/09/24 16:50 Dose: Not Given Documented By: ROZINA Nitroglycerin/Dextrose (Nitroglycerin/D5w 100mcg/Ml 20ml Syr) Confirm Administered Dose 2,000 mcg .ROUTE .STK-MED ONE Stop: 05/09/24 16:08 Last Admin: 05/09/24 16:49 Dose: Not Given Documented By: ROZINA Imaging Data Radiologist's Impression: Chest X-Ray 05/08/24 16:12 INDICATION: Cough. TECHNIQUE: Frontal radiograph of the chest. COMPARISON: Radiograph from 04/04/2024. FINDINGS: Cardiomegaly. Mild to moderate pulmonary vascular congestion. No infiltrate, pleural effusion or pneumothorax. No acute osseous abnormality evident.Right-sided PICC line catheter tip in the superior vena cava. IMPRESSION: Mild to moderate pulmonary vascular congestion.Right-sided PICC line catheter tip in the superior vena cava. Electronically signed by Todd Christina 05-08-2024 4:48 PM Foot X-Ray 05/08/24 20:09 Exam(s): XR LEFT FOOT, 2 views EXAM: XR Left Foot, 2 Views CLINICAL HISTORY: Reason for exam: Eval osteo. TECHNIQUE: Frontal and lateral views of the left foot. COMPARISON: X-ray 03/08/2024 FINDINGS: Bones/joints: Amputation of the first digit at the MTP joint. Lucency within the first metatarsal head consistent with acute osteomyelitis. Soft tissues: Diffuse soft tissue edema. No radiopaque foreign body. Vasculature: Atherosclerotic calcifications. IMPRESSION: Lucency within the first metatarsal head consistent with acute osteomyelitis. Electronically signed by: Eduardo Andrews MD 05/08/24 23:44 PM Discharge Plan Visit Data Chief Complaint: Infection, Wound Stated Complaint: INFECTION IN FOOT/WOUND ED Provider: Rudolph Siddiqi Discharge Problem: Non-healing surgical wound, Osteomyelitis of great toe of left foot, Diabetic peripheral neuropathy associated with type 2 diabetes mellitus, Atrial fibrillation Patient Disposition: Admitted As Inpatient Discharge Instructions Interventions: ED Discharge Assessment Last Done: 05/08/24 21:18 Discharge Problem: Non-healing surgical wound Qualifiers: Encounter type: initial encounter Qualified Code(s): T81.89XA - Other complications of procedures, not elsewhere classified, initial encounter Atrial fibrillation Qualifiers: Atrial fibrillation type: unspecified Qualified Code(s): I48.91 - Unspecified atrial fibrillation
[2024-05-08] MEDS: ACETAMINOPHEN 1,000 MG/100 ML VIAL IV STA (20:18)
--- NOTE | 2024-05-08 20:44 | History & Physical Report ---
Date of Service May 08, 2024 Assessment & Plan (1) Osteomyelitis of great toe of left foot: (2) Venous ulcer of left leg: (3) Cellulitis of foot, left: (4) Chronic venous insufficiency: (5) SABRINA (obstructive sleep apnea): (6) Diabetic peripheral neuropathy associated with type 2 diabetes mellitus: (7) Hypogonadotropic hypogonadism in male: (8) Anxiety: (9) BPH (benign prostatic hyperplasia): (10) Gastroesophageal reflux disease: (11) Gout: (12) Infection of right prosthetic hip joint: Marlene Aguirre is a 74M w/ PMH of osteomyelitis of the L great toe s/p amputation 03/24/24, obesity (BMI 50), insomnia, venous insufficiency, SARBINA, dyslipidemia, T2DM w/ neuropathy, BPH, anxiety, hypogonadism on testosterone, GERD, and gout who presents for evaluation of non-healing foot wound. Of note, patient additionally has infected right hip joint and wound a/w with hip replacement. Left Metatarsal Exposure | Osteomyelitis - Patient s/p amputation of left great toe for osteomyelitis 03/24 - Wound remains unhealed with interval progression concerning for infection - Labs and vitals largely unremarkable, no SIRS + Lactate elevated to 2.5, repeat ordered - XR obtained on admission, pending - Wound cultures ordered on admission, pending Most recent wound culture 02/28 w/ Pseudomonas - Receiving Zosyn outpatient, will add Daptomycin for additional gram positive coverage MRSA nares ordered - Wound care consultation requested inpatient - Consultation to Vascular (Dr. Lauren) as patient notes outpatient evaluations for revascularization Arterial and Venous Duplex studies obtained in February - Consultation placed to Podiatry (Dr. Celestin) for potential debridement/further amputation Patient made NPO at midnight in anticipation of procedure Will hold Eliquis and start heparin for potential surgical intervention - Continue pain management w/ PRN Tylenol and home PRN Tramadol Continue chronic Naltrexone 25 mg PO daily Chronic Conditions - Gout - continue home medication - GERD - continue home medication - BPH - continue home medication - Anxiety - continue home medication - Hypogonadism - testosterone weekly, held on admission - DM2 - BSG ACHS and SSI inpatient, A1c in AM - Chronic L Hip Wound - wound care consultation placed Code: Full, though previous DNR, discuss further with patient DVT: Eliquis at home, Heparin inpatient pending intervention Diet: NPO at midnight for potential intervention Consults: Vascular (Leonidas), Podiatry Dispo: Med/Surg pending intervention History of Present Illness Chief Complaint: Foot Wound Primary Care Provider: Lewis Menendez DO Timothy is a 74M w/ PMH of osteomyelitis of the L great toe s/p amputation 03/24/24, obesity (BMI 50), insomnia, venous insufficiency, SABRINA, dyslipidemia, T2DM w/ neuropathy, BPH, anxiety, hypogonadism on testosterone, GERD, and gout who presents for evaluation of non-healing foot wound. Of note, patient additionally has infected right hip joint and wound a/w with hip replacement. Patient presented today at the [facility] the wound clinic who noted progression of his left great toe wound. Patient underwent amputation of the L great toe 03/24/24, which has subsequently not healed. Patient now has exposed metatarsal bone. Patient denies pain or warmth of the foot. He is unable to appreciate a change in drainage/discharge from the wound. He notes two new abrasions/ulcerations on the top of his foot. Patient has a PICC line in his right arm from which he has been receiving Zosyn for his wounds (last wound culture 05/01/24 grew Pseudomonas). In addition, patient was unaware that he was to discontinue Augmentin, and has been taking PO Augmentin at home daily. Patient has chronic venous insufficiency and lower extremity edema, he uses PRN diuretics, notes that edema is at baseline. He has associated erythematous skin changes from venous insufficiency which are also at baseline. Patient has not noted any chest pain, dyspnea, nausea, emesis, headaches, lightheadedness or dizziness. He has continued to urinate and move bowels regularly w/o concern. Allergies Allergy/AdvReac Type Severity Reaction Status Date / Time No Known Drug Allergies Allergy . Verified 05/08/24 14:37 Home Medications Medication Instructions Recorded Confirmed Type cholecalciferol (vitamin D3) 50 2,000 unit PO QAM 03/03/18 05/08/24 History mcg (2,000 unit) capsule (Vitamin D3) lancets 33 gauge (OneTouch Delica #100 ea 11/04/18 05/08/24 History Lancets) ascorbate calcium (vitamin C) 500 500 mg PO DAILY #30 tabs 07/11/20 05/08/24 Rx mg tablet ferrous sulfate 325 mg (65 mg 325 mg PO DAILY #30 tabs 07/11/20 05/08/24 Rx iron) tablet docusate sodium 100 mg capsule 100 mg PO BID PRN Constipation 10/21/20 05/08/24 History (Colace) mecobalamin (vitamin B12) 1 tab PO DAILY 02/06/22 05/08/24 History pyridoxine (vitamin B6) 1 tab PO DAILY 02/06/22 05/08/24 History loratadine 10 mg tablet 10 mg PO DAILY PRN ALLERGIES 10/08/22 05/08/24 History mupirocin 2 % topical ointment 1 applic topical TID PRN scrotal 11/05/22 05/08/24 Rx sores #22 grams diclofenac sodium 1 % topical gel 2 g topical QID PRN Pain 02/05/23 05/08/24 History (Arthritis Pain (diclofenac)) metoprolol succinate 50 mg 50 mg PO QAM #90 tabs 03/10/23 05/08/24 Rx tablet,extended release 24 hr empagliflozin 10 mg tablet 10 mg PO DAILY #90 tabs 06/14/23 05/08/24 Rx (Jardiance) needle (disp) 21 G 21 gauge x 1 #100 ea 09/16/23 05/08/24 Rx 1/2" (BD Eclipse Luer-Jesus) syringe with needle 3 mL 20 gauge #100 ea 09/27/23 05/08/24 Rx x 1 1/2" (BD Luer-Jesus Syringe) nystatin 100,000 unit/gram topical 1 applic topical DAILY 30 days #60 11/02/23 05/08/24 Rx powder grams dutasteride 0.5 mg capsule 0.5 mg PO DAILY #90 caps 11/09/23 05/08/24 Rx (Avodart) hydrocortisone 2.5 % topical cream 1 applic ME DAILY PRN hemorrhoids 11/09/23 05/08/24 Rx with perineal applicator #30 grams (Anusol-HC) magnesium oxide 400 mg PO DAILY #30 tabs 11/13/23 05/08/24 Rx tadalafil 5 mg tablet (Cialis) 5 mg PO DAILY PRN Other 11/13/23 05/08/24 History bupropion HCl 300 mg 24 hr tablet, 300 mg PO DAILY #30 tabs 09/03/24 02/10/25 Rx extended release losartan 25 mg tablet 25 mg PO DAILY #90 tabs 12/09/23 05/08/24 Rx metformin 500 mg tablet,extended 1,000 mg (2 x 500 mg) PO BID #360 12/20/23 05/08/24 Rx release 24 hr tabs tamsulosin 0.4 mg capsule 0.4 mg PO BID #180 caps 12/27/23 05/08/24 Rx atorvastatin 80 mg tablet 80 mg PO DAILY #90 tabs 12/28/23 05/08/24 Rx allopurinol 300 mg tablet 300 mg PO QAM #90 tabs 12/31/23 05/08/24 Rx naltrexone 50 mg tablet 25 mg (1/2 x 50 mg) PO DAILY #30 01/06/24 05/08/24 Rx tabs testosterone cypionate 200 mg/mL 100 mg (0.5 mL) subcut Q7D #2 mL 02/08/24 05/08/24 Rx intramuscular oil collagenase clostridium histo. 250 1 applic EXT DAILY #30 grams 02/12/24 05/08/24 Rx unit/gram topical ointment (Santyl) OneTouch Verio test strips (blood #100 ea 02/14/24 05/08/24 Rx sugar diagnostic) probiotic 1 dose PO DAILY 02/14/24 05/08/24 History amoxicillin 875 mg-potassium 1 tab PO BIDM #14 tabs 03/18/24 05/08/24 Rx clavulanate 125 mg tablet omeprazole 20 mg tablet,delayed 20 mg PO QAM 03/21/24 05/08/24 History release torsemide 20 mg tablet 10 mg (1/2 x 20 mg) PO DAILY PRN 03/28/24 05/08/24 Rx Fluid Retention #60 tabs acetaminophen 325 mg tablet 650 mg PO QID PRN Pain 04/04/24 05/08/24 History apixaban 5 mg tablet 5 mg PO BID #180 tabs 04/04/24 05/08/24 Rx tramadol 50 mg tablet 50 mg PO Q8H PRN Pain 04/04/24 05/08/24 History piperacillin-tazobactam 3.375 gram 3.375 g IV Q6H 05/01/24 05/08/24 History intravenous solution Past Med/Surg History Problem List (Updated 05/10/24 @ 16:02 by Rudolph Siddiqi MD) Acute osteomyelitis of metatarsal bone of left foot Atrial fibrillation (Acute) dx 2020 when had RI, no pacer, follows with Dr. 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) Non-healing surgical wound (Acute) Medical History Extreme obesity History of COVID-19 2019 Anxiety Hx of deep venous thrombosis right > s/p knee surgery > prior to 2020 Neuropathy bilat feet Gout GERD (gastroesophageal reflux disease) SABRINA (obstructive sleep apnea) cpap Hypomagnesemia Peripheral arterial disease 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 Diabetic ulcer of toe of left foot follows with wound clinic Burn of left great toe seeing wound clinic Coronary heart disease non-obstructive per [place] cardio records Diabetes type 2, controlled Hypertension Warfarin anticoagulation Tremor History of myocardial infarction Non-ST elevated RI 2020 > [place] Alopecia Chronic pain Cor pulmonale (chronic) Degenerative joint disease involving multiple joints on both sides of body Erectile dysfunction Tinea pedis Vitamin D deficiency Surgical History History of cardiac cath [place] > 2020 > pt unaware if stents History of tooth extraction S/P total knee arthroplasty bilat, then b/l revisions S/P tonsillectomy H/O knee surgery x4 H/O inguinal hernia repair 2016 History of hip surgery 04/2016 and 05/2016, right x2 H/O hernia repair 2016 Hx of cholecystectomy History of bladder surgery Family History Mother FH: Parkinson's disease Breast cancer Father Coronary heart disease Hypertension Cardiac disease Melanoma Skin cancer Unknown Melanoma Denies family history of Ovarian cancer Prostate cancer Myocardial infarction Lung cancer Colorectal cancer Social History Smoking Status: Never smoker Tobacco Type: Declines Second Hand Exposure: No; Do You Dip or Chew Tobacco: No; Tobacco Cessation Education Requested by Patient: No Hx Alcohol Use: No Hx Substance Use: No Preferred Language: American Communication Ability: Effective Visual Impairment: Limited Hearing Ability: Normal Shop Steward Required: No Beliefs That Will Affect Care: None marital status: Current Living Situation: Spouse current occupational status: retired 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 Other Information That Helps Us Care for You: No Feels Safe at Home: Yes Safety Concerns: Feels Safe At This Time Childhood Exposure to Second-Hand Smoke: Yes Diet: diabetic caffeine: Yes Dental Care, Regularly: No Physical Activity Frequency: Does not Exercise Seatbelt Use: always Sunscreen Use: Yes Do you think of yourself as: straight/heterosexual Assistive Devices: Cane, CPAP and Walker Physical Exam Physical Exam: Gen: NAD, alert, interactive, elevated BMI HEENT: Supple, no LAD, no thyromegaly, no appreciable JVD Resp:Non-labored, no wheezing/rhonchi/rales, CTAB CV:RRR, normal S1/S2, no M/R/G Abd: Soft, non-distended, no TTP, normoactive bowels, no masses Extr:palpable distal pulses at dorsalis pedis bilaterally, 2+ pitting edema w/ associated stasis dermatitis (erythema) Skin/MSK: Left great toe surgically absent, exposure of first metatarsal head w/ surrounding skin breakdown and purulence, no appreciable necrosis though obscured by firmly affixed gauze. Increased erythema at the base of the left foot, compared to right though inconsistent w/ erythematous skin around left first metatarsal head. No tenderness of the additional digits or forefoot. Results & Data Results & Data Vital Signs (Past 12 Hours) Vital Signs Temp Pulse Pulse Resp BP BP Pulse Ox 05/08/24 18:15 74 18 172/73 H 97 05/08/24 16:06 36.8 C 84 18 186/92 H 98 O2 Del Method 05/08/24 18:15 Room Air 05/08/24 16:06 Room Air Supervising Physician Co-Signing Physician Notes Attending addendum: I have physically seen this patient, have supervised the medical residents activities, and agree with the H&P unless as otherwise noted. Assessment and Plan: The patient is a 74-year-old male with a past medical history including osteomyelitis of left great toe status post amputation 03/24/2024, obesity with BMI 50, insomnia, venous insufficiency, SABRINA, dyslipidemia, diabetes mellitus type 2 with neuropathy, BPH, anxiety, hypogonadism on testosterone, GERD, and gout who presents to the emergency department for nonhealing foot wound. #Left metatarsal great toe infection, status post amputation for osteomyelitis on 03/24 Unhealing wound with interval progression Follow wound culture sensitivity On Zosyn as outpatient Adding daptomycin Consult wound care Consult vascular Dr. Lauren, who patient was to see in the outpatient setting for possible revascularization Arterial and venous duplex studies ordered in February and will not be repeated Consultation of Dr. Celestin podiatry Holding Eliquis and start heparin drip low-dose weight-based per protocol Pain management with Tylenol, tramadol as noted Remaining orders and notations as noted Resident Activity Tracking Resident Involvement: Resident Care Provided Care Provided: Adult [facility]
[2024-05-08] MEDS ORDERED: DICLOFENAC SOD 1% GEL 100 GM TUBE EXT PRN (22:15)
[2024-05-08] MEDS ORDERED: CARBOHYDRATES FOR HYPOGLYCEMIA PO PRN (22:15)
[2024-05-08] MEDS ORDERED: ONDANSETRON INJ 2 MG/ML 2 ML VIAL IV PRN (22:15)
[2024-05-08] MEDS ORDERED: DEXTROSE 50% 50 ML SYRINGE IV PRN (22:15)
[2024-05-08] MEDS ORDERED: GLUCAGON FOR INJ 1 MG VIAL SQ PRN (22:15)
[2024-05-08] MEDS ORDERED: POLYETHYLENE (MIRALAX) 17 GM PACK PO PRN (22:15)
[2024-05-08] MEDS ORDERED: MUPIROCIN 2% OINT 22 GM TUBE TOP PRN (22:15)
[2024-05-08] MEDS ORDERED: GLUCOSE 40% GEL 15 GM TUBE PO PRN (22:15)
[2024-05-08] MEDS ORDERED: GLUCOSE 10 TAB/TUBE PO PRN (22:15)
[2024-05-08] MEDS ORDERED: 4.5GM X1 IV STA (22:32)
[2024-05-08] MEDS: INSULIN ASPART PER UNIT CHARGE SC SCH (22:38)
[2024-05-08] MEDS: DAPTOmycin 900 MG in SYRINGE 0 ML IV ONE (22:48)
[2024-05-08] MEDS: TAMSULOSIN HCL 0.4 MG CAP PO SCH (22:49)
[2024-05-08] MEDS: HEPARIN 25000 UNIT/500 ML D5W 25,000 UNITS/500 ML BAG IV SCH (23:26)
[2024-05-08] MEDS: Heparin IV Adult Wt-Based Standard *NO* INITIAL Bolus Protocol IV STA (23:31)
[2024-05-08 23:40] LABS: Basophils # (auto) 0.08 K/uL (0.00-0.20); Basophils % (auto) 0.8 %; Eosinophils # (auto) 0.29 K/uL (0.00-0.50); Hematocrit (blood only) 40.3 % (42.0-52.0); Immature Granulocytes # (auto) 0.06 K/uL (0.01-0.20); Immature Granulocytes % (auto) 0.6 %; Lymphocytes # (auto) 1.87 K/uL (1.20-3.40); Lymphocytes % (auto) 19.1 %; Mean Corpuscular Hemoglobin 27.4 pg (25.0-34.0); Mean Corpuscular Hgb Conc 32.3 g/dL (32.0-36.0); Mean Platelet Volume 9.3 fL (9.4-12.4); Monocytes # (auto) 1.06 K/uL (0.11-0.59); Monocytes % (auto) 10.8 %; Neutrophils # (auto) 6.43 K/uL (1.40-6.50); Neutrophils % (auto) 65.7 %; Platelet Count 240 K/uL (130-400); RDW Coefficient of Variation 15.7 % (11.5-14.5); RDW Standard Deviation 48.4 fL (36.4-46.3); Red Blood Count 4.74 M/uL (4.70-6.10); White Blood Count 9.79 K/ul (4.8-10.8)
--- NOTE | 2024-05-08 23:45 | XRay Report ---
Exam(s): XR LEFT FOOT, 2 views EXAM: XR Left Foot, 2 Views CLINICAL HISTORY: Reason for exam: Eval osteo. TECHNIQUE: Frontal and lateral views of the left foot. COMPARISON: X-ray 03/08/2024 FINDINGS: Bones/joints: Amputation of the first digit at the MTP joint. Lucency within the first metatarsal head consistent with acute osteomyelitis. Soft tissues: Diffuse soft tissue edema. No radiopaque foreign body. Vasculature: Atherosclerotic calcifications. IMPRESSION: Lucency within the first metatarsal head consistent with acute osteomyelitis. Electronically signed by: Eduardo Andrews MD 05/08/24 23:44 PM
[2024-05-09 00:08] LABS: INR 1.1 (0.9-1.1); Partial Thromboplastin Ratio 1.2; Partial Thromboplastin Time 32 Seconds (21-31)
[2024-05-09] MEDS: PIPERACILLIN/TAZOBACTAM 4.5 GM/100 ML BAG IV SCH ×2 (00:15→10:28)
[2024-05-09] MEDS ORDERED: Nursing to Pharmacy Communication SCH (04:45)
[2024-05-09] MEDS: traMADol HCL 50 MG TABLET PO PRN (05:50)
[2024-05-09 06:22] LABS: ANTI-Xa, UFH(UnfractionatedHep 0.38 IU/ml (0.3-0.7)
[2024-05-09 07:27] LABS: Estimated Average Glucose 117 mg/dl; Hemoglobin A1C 5.7 % (4.5-5.6)
--- NOTE | 2024-05-09 07:50 | Hospitalist Progress Note ---
"Date of Service May 09, 2024 Assessment & Plan (1) Osteomyelitis of great toe of left foot: (2) Diabetic peripheral neuropathy associated with type 2 diabetes mellitus: (3) Atrial fibrillation: (4) Hypogonadotropic hypogonadism in male: (5) SABRINA (obstructive sleep apnea): Plan Timothy is a 74M w/ PMH of osteomyelitis of the L great toe s/p amputation 03/24/24, obesity (BMI 50), insomnia, venous insufficiency, SABRINA, dyslipidemia, T2DM w/ neuropathy, BPH, anxiety, hypogonadism on testosterone, GERD, and gout who presents for evaluation of non-healing foot wound. Of note, patient additionally has infected right hip joint and wound a/w with hip replacement. Left Metatarsal Exposure | Osteomyelitis Postoperative wound infection of the left great toe amputation with wound dehiscence - Patient s/p amputation of left great toe for osteomyelitis 03/24/24 - Wound remains unhealed with interval progression concerning for infection - Plain film shows osteomyelitis left first Metatarsal - Wound cultures , pending Most recent wound culture w/ Pseudomonas which was resistant to ceftazidime and intermediate to aztreonam cefepime and pip-tazo Previous also had Achromobacter was from March 23, 2024will await infectious disease decision for need to transition antibiotic coverage - Receiving Zosyn outpatient, did receive daptomycin for additional gram positive coverage MRSA nares ordered - Wound care consultation requested inpatient - Consultation to Vascular (Dr. Lauren) as patient notes outpatient evaluations for revascularization Personally discussed with Dr. Lauren likely will try to improve distal flow to left leg Arterial and Venous Duplex studies obtained in February - Consultation placed to Podiatry (Dr. Celestin) for potential debridement/further amputation Will hold Eliquis and start heparin for potential surgical intervention - Continue pain management w/ PRN Tylenol and home PRN Tramadol Continue chronic Naltrexone 25 mg PO daily Chronic Conditions - atrial fibrillation, poa rate control with metoprolol and AC with Eliquis - Gout - continue home medication - GERD - continue home medication - BPH - continue home medication - Anxiety - continue home medication - Hypogonadism - testosterone weekly, held on admission - DM2 - BSG ACHS and SSI inpatient, A1c in AM Type 2 diabetes with suspected PVD - Chronic L Hip Wound - wound care consultation placed Code: Full, though previous DNR, discuss further with patient DVT: Eliquis at home, Heparin inpatient pending intervention Admission and Anticipated Discharge Date Admission Date: May 08, 2024 Subjective Been visiting the patient is still wearing his home Zosyn infusion. Infectious disease consultation will be undertaken given the patient seems to progress while on Zosyn. He did however have a wound dehiscence. Given his previous resistances we may need to transition antibiotics thus will wait for infectious disease to weigh in as he is not toxic at this time Physical Exam Physical Exam: Pleasant gentleman with chronic venous stasis dermatitis to his lower extremities with a dehisced wound on his left great toe area this has some Xeroform like gauze within the deficit where his toe used to be. His legs are violaceous but likely almost equivalent bilaterally. His left leg is more swollen Results & Data Results & Data Vital Signs (Past 12 Hours) Vital Signs Temp Pulse Pulse Pulse Resp BP BP 05/09/24 07:11 97.5 F L 71 19 170/90 H 05/08/24 21:30 97.7 F 78 18 164/73 H 05/08/24 21:18 74 20 138/92 05/08/24 20:00 83 18 BP Pulse Ox O2 Del Method 05/09/24 07:11 96 Room Air 05/08/24 21:30 97 Room Air 05/08/24 21:18 96 Room Air 05/08/24 20:00 185/80 H 96 Laboratory Results Reviewed CBC Reviewed chemistry These were both admission labs none were ordered for the lab and ordered labs for 11 but are pending and will be reviewed ordered additional serial labs given the patient's illness PG Care Time/CCT Total # of Minutes Spent Total Time Spent with Patient: Total time spent is greater than 50% in coordination of care (as documented) at patient's floor/unit and/or counseling patient: Coding Level of Care Code 53892 SUB INP/OBS CARE 3/50MIN Diagnoses Osteomyelitis of great toe of left foot M86.9 Diabetic peripheral neuropathy associated with type 2 diabetes mellitus E11.42 Atrial fibrillation I48.91 Hypogonadotropic hypogonadism in male E23.0 SABRINA (obstructive sleep apnea) G47.33"
[2024-05-09] MEDS: ADVANCED PROBIOTIC 625 MG CAPSULE PO SCH (09:58)
[2024-05-09] MEDS: buPROPion XL 300 MG TABCR PO SCH (09:58)
[2024-05-09] MEDS: PANTOprazole 40 MG TAB PO SCH (09:58)
[2024-05-09] MEDS: METOPROLOL SUCC 50MG EXT REL TAB PO SCH (09:58)
[2024-05-09] MEDS: LOSARTAN POTASSIUM 25 MG TAB PO SCH (09:58)
[2024-05-09] MEDS: allopurinoL 300 MG TAB PO SCH (09:58)
[2024-05-09] MEDS: MAGNESIUM OXIDE 400 MG TAB PO SCH (09:58)
[2024-05-09] MEDS: FINASTERIDE 5 MG TAB PO SCH (09:59)
[2024-05-09] MEDS: NALTREXONE HCL 50 MG TAB PO SCH (09:59)
--- NOTE | 2024-05-09 10:47 | Infectious Disease Consult ---
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 GS neg 05/08 BCx x2: pending 05/08 L foot wound cx: pending. GS neg 05/01 L 1st toe amp site cx: Pseudomonas (I cefepime, pip/tazo. R ceftaz. S cipro, levo, moncho) 03/23 L hallux bone cx: Achromobacter xylosoxidans (S pip/tazo, TMP/SMX. I cefepime. 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 in 05/2016 s/p I+D without hardware removal or replacement on chronic suppressive augmentin (had R hip superficial cx in 08/2023 which showed H parainfluenzae and Prevotella bivia, follows with [facility]), bl knee replacements, afib, CAD/MO, GERD, gout, admission 01/2024 with left foot cellulitis with great toe ulcer (MRI neg for OM, WCX with Enterobacter cloacae, treated broadly due to worsening after abx de-escalation with doxy/Levaquin/flagyl x 10d on 02/15), subsequent admission 02/2024 with worsening L great toe wound and MRI showing concern for early acute OM of the L first and second distal phalanges s/p L hallux amputation. CTA aorta runoff without significant arterial stenotic disease. Proximal margin path was clean without osteomyelitis. Bone culture grew Achromobacter xylosoxidans (S pip/tazo, TMP/SMX). He was not placed on antibiotics post-op. He was seen at [facility] on 03/27/24, where it was noted he had discoloration at the tip of the amputation site. He was started on Zosyn 3.375 q6h via PICC. He followed with the wound clinic, where on 05/01 there was noted to be a wound on the L great toe amputation site with slough, necrotic tissue, and moderate serosanguineous drainage. Debridement was done and a wound culture sent, which grew Pseudomonas aeruginosa (I cefepime, pip/tazo. R ceftaz. S cipro, levo, moncho). He was seen for ID follow-up on , at which time the Zosyn was extended another 2 weeks. He was seen in wound clinic again on 05/08, at which time the wound was noted to have deteriorated, with bone exposed, and new open areas to L dorsal foot and dorsal second toe, with cellulitis of the foot. He was advised to present to the ED. On presentation, pt was afebrile without leukocytosis. ESR 54, CRP 3.5. XR L foot with lucency within first metatarsal head consistent with acute osteomyelitis. He was continued on pip/tazo, and given 1 dose of daptomycin. Vascular and Podiatry were consulted. Recommendations: -Given Pseudomonas from 05/01 wound culture has only intermediate sensitivity to pip/tazo (and cefepime), I have stopped the pip/tazo and started meropenem. -Will follow-up Podiatry operative plans -Can hold home suppressive Augmentin while on above IV antibiotics Will continue to follow Consultation Information This patient recommendation is based on a telemedicine consult request which was completed asynchronously through chart review and information provided by the primary physician. The patient was not seen or examined today. The evaluation is consultative in nature and all patient care and treatment decisions can either be accepted or rejected by the patient's primary hospital-based treating physician using their own independent medical judgment for their patient. [employer] contact information: Please call [facility] Center . (Phone Number For Physician Use Only) An e-consult was performed due to lack of availability of a telepresenter. Time Spent Reviewing Chart: 31+ minutes History of Present Illness Reason for Consultation: L foot osteomyelitis Attending Physician: Harrison Lewis MD History of Present Illness 74 yo M with h/o T2DM c/b neuropathy, right SURJIT in 04/2016 c/b PJI 04/30 MSSA in 05/2016 s/p I+D without hardware removal or replacement on chronic suppressive augmentin (had R hip superficial cx in 08/2023 which showed H parainfluenzae and Prevotella bivia, follows with [facility]), bl knee replacements, afib, CAD/MO, GERD, gout, admission 01/2024 with left foot cellulitis with great toe ulcer (MRI neg for OM, WCX with Enterobacter cloacae, treated broadly due to worsening after abx de-escalation with doxy/Levaquin/flagyl x 10d on 02/15), subsequent admission 02/2024 with worsening L great toe wound and MRI showing concern for early acute OM of the L first and second distal phalanges s/p L hallux amputation. CTA aorta runoff without significant arterial stenotic disease. Proximal margin path was clean without osteomyelitis. Bone culture grew Achromobacter xylosoxidans (S pip/tazo, TMP/SMX). He was not placed on antibiotics post-op. He was seen at [facility] on 03/27/24, where it was noted he had discoloration at the tip of the amputation site. He was started on Zosyn 3.375 q6h via PICC. He followed with the wound clinic, where on 05/01 there was noted to be a wound on the L great toe amputation site with slough, necrotic tissue, and moderate serosanguineous drainage. Debridement was done and a wound culture sent, which grew Pseudomonas aeruginosa (I cefepime, pip/tazo. R ceftaz. S cipro, levo, moncho). He was seen for ID follow-up on , at which time the Zosyn was extended another 2 weeks. He was seen in wound clinic again on 05/08, at which time the wound was noted to have deteriorated, with bone exposed, and new open areas to L dorsal foot and dorsal second toe, with cellulitis of the foot. He was advised to present to the ED. On presentation, pt was afebrile, VSS. He was noted to have exposed L first metatarsal head with surrounding skin breakdown and purulence, L>R foot erythema. Labs showed WBC 8.71, ESR 54, CRP 3.5. XR L foot with lucency within first metatarsal head consistent with acute osteomyelitis. He was continued on pip/tazo, and given 1 dose of daptomycin. Vascular and Podiatry were consulted. Allergies Allergy/AdvReac Type Severity Reaction Status Date / Time No Known Drug Allergies Allergy . Verified 05/08/24 14:37 Home Medications Medication Instructions Recorded Confirmed Type cholecalciferol (vitamin D3) 50 2,000 unit PO QAM 03/03/18 05/08/24 History mcg (2,000 unit) capsule (Vitamin D3) lancets 33 gauge (Publict[employer] Delica #100 ea 11/04/18 05/08/24 History Lancets) ascorbate calcium (vitamin C) 500 500 mg PO DAILY #30 tabs 07/11/20 05/08/24 Rx mg tablet ferrous sulfate 325 mg (65 mg 325 mg PO DAILY #30 tabs 07/11/20 05/08/24 Rx iron) tablet docusate sodium 100 mg capsule 100 mg PO BID PRN Constipation 10/21/20 05/08/24 History (Colace) mecobalamin (vitamin B12) 1 tab PO DAILY 02/06/22 05/08/24 History pyridoxine (vitamin B6) 1 tab PO DAILY 02/06/22 05/08/24 History loratadine 10 mg tablet 10 mg PO DAILY PRN ALLERGIES 10/08/22 05/08/24 History mupirocin 2 % topical ointment 1 applic topical TID PRN scrotal 11/05/22 05/08/24 Rx sores #22 grams diclofenac sodium 1 % topical gel 2 g topical QID PRN Pain 02/05/23 05/08/24 History (Arthritis Pain (diclofenac)) metoprolol succinate 50 mg 50 mg PO QAM #90 tabs 03/10/23 05/08/24 Rx tablet,extended release 24 hr empagliflozin 10 mg tablet 10 mg PO DAILY #90 tabs 06/14/23 05/08/24 Rx (Jardiance) needle (disp) 21 G 21 gauge x 1 #100 ea 09/16/23 05/08/24 Rx 1/2" (BD Eclipse Luer-Jesus) syringe with needle 3 mL 20 gauge #100 ea 09/27/23 05/08/24 Rx x 1 1/2" (BD Luer-Jesus Syringe) nystatin 100,000 unit/gram topical 1 applic topical DAILY 30 days #60 11/02/23 05/08/24 Rx powder grams dutasteride 0.5 mg capsule 0.5 mg PO DAILY #90 caps 11/09/23 05/08/24 Rx (Avodart) hydrocortisone 2.5 % topical cream 1 applic SD DAILY PRN hemorrhoids 11/09/23 05/08/24 Rx with perineal applicator #30 grams (Anusol-HC) magnesium oxide 400 mg PO DAILY #30 tabs 11/13/23 05/08/24 Rx tadalafil 5 mg tablet (Cialis) 5 mg PO DAILY PRN Other 11/13/23 05/08/24 History bupropion HCl 300 mg 24 hr tablet, 300 mg PO DAILY #30 tabs 11/30/23 05/08/24 Rx extended release losartan 25 mg tablet 25 mg PO DAILY #90 tabs 12/09/23 05/08/24 Rx metformin 500 mg tablet,extended 1,000 mg (2 x 500 mg) PO BID #360 12/20/23 05/08/24 Rx release 24 hr tabs tamsulosin 0.4 mg capsule 0.4 mg PO BID #180 caps 12/27/23 05/08/24 Rx atorvastatin 80 mg tablet 80 mg PO DAILY #90 tabs 12/28/23 05/08/24 Rx allopurinol 300 mg tablet 300 mg PO QAM #90 tabs 12/31/23 05/08/24 Rx naltrexone 50 mg tablet 25 mg (1/2 x 50 mg) PO DAILY #30 01/06/24 05/08/24 Rx tabs testosterone cypionate 200 mg/mL 100 mg (0.5 mL) subcut Q7D #2 mL 02/08/24 0 05/08/24 Rx intramuscular oil collagenase clostridium histo. 250 1 applic EXT DAILY #30 grams 02/12/24 05/08/24 Rx unit/gram topical ointment (Santyl) OneTouch Verio test strips (blood #100 ea 02/14/24 05/08/24 Rx sugar diagnostic) probiotic 1 dose PO DAILY 02/14/24 05/08/24 History amoxicillin 875 mg-potassium 1 tab PO BIDM #14 tabs 03/18/24 05/08/24 Rx clavulanate 125 mg tablet omeprazole 20 mg tablet,delayed 20 mg PO QAM 03/21/24 05/08/24 History release torsemide 20 mg tablet 10 mg (1/2 x 20 mg) PO DAILY PRN 03/28/24 05/08/24 Rx Fluid Retention #60 tabs acetaminophen 325 mg tablet 650 mg PO QID PRN Pain 04/04/24 05/08/24 History apixaban 5 mg tablet 5 mg PO BID #180 tabs 04/04/24 05/08/24 Rx tramadol 50 mg tablet 50 mg PO Q8H PRN Pain 04/04/24 05/08/24 History piperacillin-tazobactam 3.375 gram 3.375 g IV Q6H 05/01/24 05/08/24 History intravenous solution Patient History Medical History Extreme obesity History of COVID-19 2019 Anxiety Hx of deep venous thrombosis right > s/p knee surgery > prior to 2019 Neuropathy bilat feet Gout GERD (gastroesophageal reflux disease) SABRINA (obstructive sleep apnea) cpap Hypomagnesemia Peripheral arterial disease 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 Diabetic ulcer of toe of left foot follows with wound clinic Burn of left great toe seeing wound clinic Coronary heart disease non-obstructive per [place] cardio records Atrial fibrillation dx 2019 when had MO, no pacer, follows with Dr. Meeks Diabetes type 2, controlled Hypertension Warfarin anticoagulation Tremor History of myocardial infarction Non-ST elevated MO 2020 > [place] Alopecia Chronic pain Cor pulmonale (chronic) Degenerative joint disease involving multiple joints on both sides of body Erectile dysfunction Tinea pedis Vitamin D deficiency Surgical History History of cardiac cath [place] > 2020 > pt unaware if stents History of tooth extraction S/P total knee arthroplasty bilat, then b/l revisions S/P tonsillectomy H/O knee surgery x4 H/O inguinal hernia repair 2016 History of hip surgery 04/2016 and 05/2016, right x2 H/O hernia repair 2016 Hx of cholecystectomy History of bladder surgery Family History Mother FH: Parkinson's disease Breast cancer Father Coronary heart disease Hypertension Cardiac disease Melanoma Skin cancer Unknown Melanoma Denies family history of Ovarian cancer Prostate cancer Myocardial infarction Lung cancer Colorectal cancer Social History (Updated 05/01/24 @ 14:21 by Fatoumata Staley RN) Smoking Status: Never smoker Tobacco Type: Declines Second Hand Exposure: No; Do You Dip or Chew Tobacco: No; Hx Alcohol Use: No Hx Substance Use: No Preferred Language: Polish Communication Ability: Effective Visual Impairment: Limited Hearing Ability: Normal 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 Required: No Beliefs That Will Affect Care: None marital status: Current Living Situation: Spouse current occupational status: retired current occupation: retired [employer]-2016 Feels Safe at Home: Yes Childhood Exposure to Second-Hand Smoke: Yes Diet: diabetic caffeine: Yes Dental Care, Regularly: No Physical Activity Frequency: Does not Exercise Seatbelt Use: always Sunscreen Use: Yes Do you think of yourself as: straight/heterosexual Assistive Devices: Cane, CPAP and Walker Results & Data Vital Signs (Past 12 Hours) Vital Signs Temp Pulse Resp BP Pulse Ox O2 Del Method 05/09/24 07:11 36.4 C L 71 19 170/90 H 96 Room Air Laboratory Results Short CBC 05/08/24 05/08/24 05/09/24 Range/Units 17:12 23:23 11:08 WBC 8.55 9.79 7.99 (4.8-10.8) K/ul Hgb 14.4 13.0 L 13.5 L (14.0-18.0) g/dl Hct 45.0 40.3 L 41.7 L (42.0-52.0) % Plt Count 262 240 246 (130-400) K/uL BMP 05/08/24 05/09/24 17:12 11:08 Sodium 138 138 Potassium 4.1 4.0 Chloride 103 102 Carbon Dioxide 28 27 BUN 15 14 Creatinine 0.83 0.73 Glucose 84 145 H Calcium 9.2 8.9 Liver Function 05/08/24 Range/Units 17:12 Total Bilirubin 0.9 (0.2-1.0) mg/dl AST 24 (13-39) U/L ALT 14 (7-52) U/L Alkaline Phosphatase 78 (34-104) U/L Albumin 4.1 (3.4-5.0) gm/dl Urine 05/08/24 Range/Units 17:20 Urine Color Yellow Urine Appearance Clear (Clear) Urine pH 6.0 (4.5-7.5) Ur Specific [place] 1.019 (1.000-1.030) Urine Protein Negative (Negative) Urine Glucose (UA) Negative (Negative) Diagnostic Findings Chest X-Ray 05/08/24 16:12 INDICATION: Cough. TECHNIQUE: Frontal radiograph of the chest. COMPARISON: Radiograph from 04/04/2024. FINDINGS: Cardiomegaly. Mild to moderate pulmonary vascular congestion. No infiltrate, pleural effusion or pneumothorax. No acute osseous abnormality evident.Right-sided PICC line catheter tip in the superior vena cava. IMPRESSION: Mild to moderate pulmonary vascular congestion.Right-sided PICC line catheter tip in the superior vena cava. Electronically signed by Todd Christina 05-08-2024 4:48 PM Foot X-Ray 05/08/24 20:09 Exam(s): XR LEFT FOOT, 2 views EXAM: XR Left Foot, 2 Views CLINICAL HISTORY: Reason for exam: Eval osteo. TECHNIQUE: Frontal and lateral views of the left foot. COMPARISON: X-ray 03/08/2024 FINDINGS: Bones/joints: Amputation of the first digit at the MTP joint. Lucency within the first metatarsal head consistent with acute osteomyelitis. Soft tissues: Diffuse soft tissue edema. No radiopaque foreign body. Vasculature: Atherosclerotic calcifications. IMPRESSION: Lucency within the first metatarsal head consistent with acute osteomyelitis. Electronically signed by: Eduardo Andrews MD 05/08/24 23:44 PM Medications Administered Current Inpatient Medications Allopurinol (Allopurinol 300 Mg Tab) 300 mg PO QAM JESSIE Stop: 06/08/24 08:59 Last Admin: 05/09/24 09:58 Dose: 300 mg Bupropion HCl (Bupropion Xl 300 Mg Tabcr) 300 mg PO DAILY JESSIE Stop: 06/08/24 08:59 Last Admin: 05/09/24 09:58 Dose: 300 mg Dextrose (Dextrose 50% 50 Ml Syringe) 25 - 50 ml IV UD PRN; Protocol PRN Reason: Hypoglycemia Protocol Stop: 06/07/24 22:14 Diclofenac Sodium (Diclofenac Sod 1% Gel 100 Gm Tube) 2 gm EXT QID PRN; Pro tocol PRN Reason: Pain (Back) Stop: 06/07/24 22:14 Docusate Sodium (Docusate Sodium 100 Mg Cap) 100 mg PO BID PRN PRN Reason: Constipation Stop: 06/07/24 22:14 Finasteride (Finasteride 5 Mg Tab) 5 mg PO DAILY [facility] Stop: 06/08/24 08:59 Last Admin: 05/09/24 09:59 Dose: 5 mg Glucagon (Glucagon For Inj 1 Mg Vial) 1 mg SQ UD PRN; Protocol PRN Reason: Hypoglycemia Protocol Stop: 06/07/24 22:14 Glucose (Glucose 40% Gel 15 Gm Tube) 15 - 30 gm PO UD PRN; Protocol PRN Reason: Hypoglycemia Protocol Stop: 06/07/24 22:14 Glucose (Glucose 10 Tab/Tube) 4 - 8 tab PO UD PRN; Protocol PRN Reason: Hypoglycemia Protocol Stop: 06/07/24 22:14 Heparin Sodium (Beef Lung) (Heparin 10 Unit/Ml 5 Ml Flush) 5 ml FLUSH PRN PRN PRN Reason: Flush Stop: 06/08/24 03:41 Heparin Sodium/Dextrose (Heparin 29869 Unit/500 Ml) 25,000 units in 500 mls @ 36 mls/hr IV .[id number] [facility]; Protocol Stop: 06/07/24 22:14 Last Admin: 05/09/24 07:14 Dose: 1,800 units/hr, 36 mls/hr Piperacillin Sod/Tazobactam Sod (Zosyn) 4.5 gm in 100 mls @ 25 mls/hr IV Q8H [facility]; Protocol Stop: 05/16/24 09:59 Last Admin: 05/09/24 10:28 Dose: 25 mls/hr Insulin Aspart (Insulin Aspart Per Unit Charge) 0 units SC ACHS [facility] Stop: 06/08/24 11:29 Lactobacillus Acidophilus (Advanced Probiotic 625 Mg Capsule) 625 mg PO DAILY [facility] Stop: 06/08/24 08:59 Last Admin: 05/09/24 09:58 Dose: 625 mg Loratadine (Loratadine 10 Mg Tab) 10 mg PO DAILY PRN PRN Reason: ALLERGIES Stop: 06/07/24 22:14 Losartan Potassium (Losartan Potassium 25 Mg Tab) 25 mg PO DAILY [facility] Stop: 06/08/24 08:59 Last Admin: 05/09/24 09:58 Dose: 25 mg Magnesium Oxide (Magnesium Oxide 400 Mg Tab) 400 mg PO DAILY [facility] Stop: 06/08/24 08:59 Last Admin: 05/09/24 09:58 Dose: 400 mg Melatonin (Melatonin 3 Mg Tab) 6 mg PO HS PRN PRN Reason: Insomnia Stop: 06/07/24 22:14 Metoprolol Succinate (Metoprolol Succ 50mg Ext Rel Tab) 50 mg PO QAM [facility] Stop: 06/08/24 08:59 Last Admin: 05/09/24 10:59 Dose: 50 mg Miscellaneous (Carbohydrates For Hypoglycemia ) 15 - 30 gm PO UD PRN PRN Reason: Hypoglycemia Protocol Stop: 06/07/24 22:14 Mupirocin (Mupirocin 2% Oint 22 Gm Tube) 1 appln TOP TID PRN PRN Reason: scrotal sores Stop: 06/07/24 22:14 Naltrexone HCl (Naltrexone Hcl 50 Mg Tab) 25 mg PO DAILY [facility] Stop: 06/08/24 08:59 Last Admin: 05/09/24 09:59 Dose: 25 mg Nystatin (Nystatin Powder 15gm Btl) 1 appln EXT DAILY [facility] Stop: 06/08/24 08:59 Last Admin: 05/09/24 10:59 Dose: 1 appln Ondansetron HCl (Ondansetron Inj 2 Mg/Ml 2 Ml Vial) 4 mg IV Q6H PRN PRN Reason: Nausea Stop: 06/07/24 22:14 Pantoprazole Sodium (Pantoprazole 40 Mg Tab) 40 mg PO QAM [facility] Stop: 06/08/24 08:59 Last Admin: 05/09/24 09:58 Dose: 40 mg Polyethylene Glycol (Polyethylene (Miralax) 17 Gm Pack) 17 gm PO DAILY PRN PRN Reason: Constipation Stop: 06/07/24 22:14 Tamsulosin HCl (Tamsulosin Hcl 0.4 Mg Cap) 0.4 mg PO BID [facility] Stop: 06/07/24 22:14 Last Admin: 05/09/24 09:58 Dose: 0.4 mg Tramadol HCl (Tramadol Hcl 50 Mg Tablet) 50 mg PO Q8H PRN PRN Reason: Pain Stop: 06/07/24 22:14 Last Admin: 05/09/24 05:50 Dose: 50 mg
[2024-05-09] MEDS: NYSTATIN POWDER 15GM BTL EXT SCH (10:59)
[2024-05-09 11:33] LABS: Hematocrit (blood only) 41.7 % (42.0-52.0); Hemoglobin 13.5 g/dl (14.0-18.0); Mean Corpuscular Hemoglobin 27.3 pg (25.0-34.0); Mean Corpuscular Hgb Conc 32.4 g/dL (32.0-36.0); Mean Corpuscular Volume 84.4 fL (80.0-100.0); Mean Platelet Volume 9.8 fL (9.4-12.4); Platelet Count 246 K/uL (130-400); RDW Coefficient of Variation 15.8 % (11.5-14.5); RDW Standard Deviation 48.7 fL (36.4-46.3); Red Blood Count 4.94 M/uL (4.70-6.10); White Blood Count 7.99 K/ul (4.8-10.8)
[2024-05-09 11:47] LABS: BUN Creatinine Ratio 19.2 (10-20); Calcium 8.9 mg/dl (8.6-10.3)
[2024-05-09] MEDS ORDERED: INSULIN ASPART PER UNIT CHARGE SC SCH (12:00)
--- NOTE | 2024-05-09 12:21 | Podiatry Consultation ---
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 - Plan for partial first ray resection tomorrow. - Appreciate Dr. Lauren input re: current vascular state and potentual for healing. - Will attempt to salvage base of first met to maintain functional foot, but MRI ordered to attempt to visualize proximal extent of inflammation/infection - Will likely still require wound care and/or 6-8 weeks IV antibiotics to attempt limb salvage - Otherwise, had aryan discussion about potential for BKA as most viable/definitive option if he fails to heal this planned intervention. - Will follow History of Present Illness Reason for Consultation: Left foot osteomyelitis Attending Physician: Harrison Lewis MD History of Present Illness Patient seen at bedside. He presented to the ED after being suggested he go following a recent visit at the wound care center. We last saw him in office last week and, after in office debridement of the wound, the metatarsal head was immediately visible. The wound care team believed he could still benefit from Wound Vac placement with continued IV antibiotics, so he followed up there this week. Initially, he states that he dropped boiling water on his foot and it did not immediately noted any pain because of his neuropathy. We performed a hallux amputation just after [place] which has failed to heal. He has been scheduled to see Dr. Lauren on an outpatient basis this week, but instead presented here at the request of the wound care team. He denies any systemic symptoms of infection and still feels fine, but is amenable to surgery for his known bone infection as well as any vascular testing/intervention he can have done. Allergies Allergy/AdvReac Type Severity Reaction Status Date / Time No Known Drug Allergies Allergy . Verified 05/08/24 14:37 Home Medications Medication Instructions Recorded Confirmed Type cholecalciferol (vitamin D3) 50 2,000 unit PO QAM 03/03/18 05/08/24 History mcg (2,000 unit) capsule (Vitamin D3) lancets 33 gauge (OneTouch Delica #100 ea 11/04/18 05/08/24 History Lancets) ascorbate calcium (vitamin C) 500 500 mg PO DAILY #30 tabs 07/11/20 05/08/24 Rx mg tablet ferrous sulfate 325 mg (65 mg 325 mg PO DAILY #30 tabs 07/11/20 05/08/24 Rx iron) tablet docusate sodium 100 mg capsule 100 mg PO BID PRN Constipation 10/21/20 05/08/24 History (Colace) mecobalamin (vitamin B12) 1 tab PO DAILY 02/06/22 05/08/24 History pyridoxine (vitamin B6) 1 tab PO DAILY 02/06/22 05/08/24 History loratadine 10 mg tablet 10 mg PO DAILY PRN ALLERGIES 10/08/22 05/08/24 History mupirocin 2 % topical ointment 1 applic topical TID PRN scrotal 11/05/22 05/08/24 Rx sores #22 grams diclofenac sodium 1 % topical gel 2 g topical QID PRN Pain 02/05/23 05/08/24 History (Arthritis Pain (diclofenac)) metoprolol succinate 50 mg 50 mg PO QAM #90 tabs 03/10/23 05/08/24 Rx tablet,extended release 24 hr empagliflozin 10 mg tablet 10 mg PO DAILY #90 tabs 06/14/23 05/08/24 Rx (Jardiance) needle (disp) 21 G 21 gauge x 1 #100 ea 09/16/23 05/08/24 Rx 1/2" (BD Eclipse Luer-Jesus) syringe with needle 3 mL 20 gauge #100 ea 09/27/23 05/08/24 Rx x 1 1/2" (BD Luer-Jesus Syringe) nystatin 100,000 unit/gram topical 1 applic topical DAILY 30 days #60 11/02/23 05/08/24 Rx powder grams dutasteride 0.5 mg capsule 0.5 mg PO DAILY #90 caps 11/09/23 05/08/24 Rx (Avodart) hydrocortisone 2.5 % topical cream 1 applic ND DAILY PRN hemorrhoids 11/09/23 05/08/24 Rx with perineal applicator #30 grams (Anusol-HC) magnesium oxide 400 mg PO DAILY #30 tabs 11/13/23 05/08/24 Rx tadalafil 5 mg tablet (Cialis) 5 mg PO DAILY PRN Other 11/13/23 05/08/24 History bupropion HCl 300 mg 24 hr tablet, 300 mg PO DAILY #30 tabs 11/30/23 05/08/24 Rx extended release losartan 25 mg tablet 25 mg PO DAILY #90 tabs 12/09/23 05/08/24 Rx metformin 500 mg tablet,extended 1,000 mg (2 x 500 mg) PO BID #360 12/20/23 05/08/24 Rx release 24 hr tabs tamsulosin 0.4 mg capsule 0.4 mg PO BID #180 caps 12/27/23 05/08/24 Rx atorvastatin 80 mg tablet 80 mg PO DAILY #90 tabs 12/28/23 05/08/24 Rx allopurinol 300 mg tablet 300 mg PO QAM #90 tabs 12/31/23 05/08/24 Rx naltrexone 50 mg tablet 25 mg (1/2 x 50 mg) PO DAILY #30 01/06/24 05/08/24 Rx tabs testosterone cypionate 200 mg/mL 100 mg (0.5 mL) subcut Q7D #2 mL 02/08/24 05/08/24 Rx intramuscular oil collagenase clostridium histo. 250 1 applic EXT DAILY #30 grams 02/12/24 05/08/24 Rx unit/gram topical ointment (Santyl) OneTouch Verio test strips (blood #100 ea 02/14/24 05/08/24 Rx sugar diagnostic) probiotic 1 dose PO DAILY 02/14/24 05/08/24 History amoxicillin 875 mg-potassium 1 tab PO BIDM #14 tabs 03/18/24 05/08/24 Rx clavulanate 125 mg tablet omeprazole 20 mg tablet,delayed 20 mg PO QAM 03/21/24 05/08/24 History release torsemide 20 mg tablet 10 mg (1/2 x 20 mg) PO DAILY PRN 03/28/24 05/08/24 Rx Fluid Retention #60 tabs acetaminophen 325 mg tablet 650 mg PO QID PRN Pain 04/04/24 05/08/24 History apixaban 5 mg tablet 5 mg PO BID #180 tabs 04/04/24 05/08/24 Rx tramadol 50 mg tablet 50 mg PO Q8H PRN Pain 04/04/24 05/08/24 History piperacillin-tazobactam 3.375 gram 3.375 g IV Q6H 05/01/24 05/08/24 History intravenous solution Patient History Medical History Extreme obesity History of COVID-19 2019 Anxiety Hx of deep venous thrombosis right > s/p knee surgery > prior to 2020 Neuropathy bilat feet Gout GERD (gastroesophageal reflux disease) SABRINA (obstructive sleep apnea) cpap Hypomagnesemia Peripheral arterial disease 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 Diabetic ulcer of toe of left foot follows with wound clinic Burn of left great toe seeing wound clinic Coronary heart disease non-obstructive per [place] cardio records Diabetes type 2, controlled Hypertension Warfarin anticoagulation Tremor History of myocardial infarction Non-ST elevated PR 2020 > [place] Alopecia Chronic pain Cor pulmonale (chronic) Degenerative joint disease involving multiple joints on both sides of body Erectile dysfunction Tinea pedis Vitamin D deficiency Surgical History History of cardiac cath [place] > 2020 > pt unaware if stents History of tooth extraction S/P total knee arthroplasty bilat, then b/l revisions S/P tonsillectomy H/O knee surgery x4 H/O inguinal hernia repair 2016 History of hip surgery 04/2016 and 05/2016, right x2 H/O hernia repair 2016 Hx of cholecystectomy History of bladder surgery Family History Mother FH: Parkinson's disease Breast cancer Father Coronary heart disease Hypertension Cardiac disease Melanoma Skin cancer Unknown Melanoma Denies family history of Ovarian cancer Prostate cancer Myocardial infarction Lung cancer Colorectal cancer Social History Smoking Status: Never smoker Tobacco Type: Declines Second Hand Exposure: No; Do You Dip or Chew Tobacco: No; Tobacco Cessation Education Requested by Patient: No Hx Alcohol Use: No Hx Substance Use: No Preferred Language: Polish Communication Ability: Effective Visual Impairment: Limited Hearing Ability: Normal Air Conditioning Mechanic Required: No Beliefs That Will Affect Care: None marital status: Current Living Situation: Spouse current occupational status: retired 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 Other Information That Helps Us Care for You: No Feels Safe at Home: Yes Safety Concerns: Feels Safe At This Time Childhood Exposure to Second-Hand Smoke: Yes Diet: diabetic caffeine: Yes Dental Care, Regularly: No Physical Activity Frequency: Does not Exercise Seatbelt Use: always Sunscreen Use: Yes Do you think of yourself as: straight/heterosexual Assistive Devices: Cane, CPAP and Walker Review of Systems Review of Systems: All systems reviewed & are unremarkable except as noted in HPI & below Constitutional: no fever, no chills and no fatigue Eyes: no problem reported Ear, Nose, Mouth, Throat: no problem reported Respiratory: no problem reported Cardiovascular: + edema; no problem reported Gastrointestinal: no nausea, no vomiting and no problem reported Musculoskeletal: no problem reported Integumentary: + skin ulcer, + wounds and + erythema Neurologic: + loss of sensation, + numbness and + pa resthesia; no generalized weakness Psychiatric: no problem reported Physical Exam Physical Exam: Lower extremity focused exam: DP/PT pulses nonpalpable. Diffuse bilateral lower extremity pitting edema is noted. Left hallux amputation site is dehisced to the 1st metatarsal head. This bone is notably exopsed but firm and healthy in color, with no significant purulence noted. Advanced trophic changes are noted to the skin and nails with distal cooling and dystrophy of the toenails noted. The dorsal forefoot is erythematous and edematous with no ascending/streaking lymphangitis. No protective sensation intact to the bilateral forefoot. No profound cellulitis is appreciated to the left lower extremity, other than his baseline lymphedema/venous stasis dermatitis. Constitutional: WD/WN, vitals as above + ill appearing and + morbidly obese Eyes: PERRL, conjunctivae normal, anicteric sclerae ENMT: external ear and nose normal, oropharynx normal Neck: trachea midline, no thyromegaly normal visual inspection Respiratory: normal respiratory effort; no respiratory distress Cardiovascular: Rate/Rhythm: regular rate and regular rhythm Chest (Breasts): Chest: normal inspection of chest Gastrointestinal (Abdomen): Inspection/Auscultation: abdomen normal to inspection Percussion/Palpation: + abdomen tender and abdomen soft Musculoskeletal: no cyanosis or clubbing, extremities motor strength 5/5 Head/Neck/Chest: normocephalic and head atraumatic Extremities: extremities normal to inspection and + amputation noted Skin: + ulcer, + wound, + skin atrophy, + dry skin, + erythema and + nails dystrophic Neurologic: awake; + abnormal touch/pain/proprioception, + abnormal sensation to monofilament and no focal motor deficits Psychiatric: A+Ox3, euthymic affect Results & Data Vital Signs (Past 12 Hours) Vital Signs Temp Pulse Resp BP Pulse Ox O2 Del Method 05/09/24 07:11 36.4 C L 71 19 170/90 H 96 Room Air
[2024-05-09] MEDS: INSULIN ASPART PER UNIT CHARGE SC SCH (12:39)
[2024-05-09] MEDS ORDERED: MEROPENEM 2,000 MG in SODIUM CHLORIDE 0.9% 60 ML IV SCH (12:45)
[2024-05-09] MEDS: MEROPENEM 2,000 MG OVER 3 HRS IV SCH (14:39)
--- NOTE | 2024-05-09 16:11 | Vascular Medicine Consultation ---
Date of Consultation May 09, 2024 Assessment & Plan (1) Acute osteomyelitis of metatarsal bone of left foot: 2. Type 2 diabetes with neuropathy 3. Suspected lower extremity PAD Reviewed patient's recent arterial testing. Suspect has some degree of distal left tibial artery disease as well as likely small pedal vessel disease. Plan on angiogram via right BIOMETRY TEACHER this afternoon to further assess arterial insufficiency and guide possible amputation with podiatry tomorrow. Endovascular intervention to tibial vessels if able. Discussed procedure with patient including risk, benefits and alternatives and he wishes to proceed. Further recommendations pending findings of angiography. History of Present Illness Attending Physician: Harrison Lewis MD History of Present Illness Mr. Lopez is a very pleasant 74-year-old man with a history of type 2 diabetes complicated by neuropathy, chronic venous insufficiency, class IV obesity, chronically infected right hip prosthesis on suppressive antibiotics seen today in the setting of nonhealing left great toe surgical amputation site and suspected lower extremity PAD. Underwent left great toe amputation with Dr. Celestin 03/24/2024 in the setting of osteomyelitis. Referred from wound clinic yesterday back to [facility] in the setting of deteriorated wound with exposed bone and evidence of cellulitis. X- ray showing evidence of osteomyelitis involving first metatarsal head. Additional surgical resection planned by Dr. Celestin tomorrow. Prior vascular testing notable for CTA which showed widely patent iliac/f emoral/popliteal arteries. Left calf arteries with extensive atherosclerotic changes but no significant stenosis. 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 Allergies Allergy/AdvReac Type Severity Reaction Status Date / Time No Known Drug Allergies Allergy . Verified 05/08/24 14:37 Home Medications Medication Instructions Recorded Confirmed Type cholecalciferol (vitamin D3) 50 2,000 unit PO QAM 03/03/18 05/08/24 History mcg (2,000 unit) capsule (Vitamin D3) lancets 33 gauge (Darryluch Delcaden #100 ea 11/04/18 05/08/24 History Lancets) ascorbate calcium (vitamin C) 500 500 mg PO DAILY #30 tabs 07/11/20 05/08/24 Rx mg tablet ferrous sulfate 325 mg (65 mg 325 mg PO DAILY #30 tabs 07/11/20 05/08/24 Rx iron) tablet docusate sodium 100 mg capsule 100 mg PO BID PRN Constipation 10/21/20 05/08/24 History (Colace) mecobalamin (vitamin B12) 1 tab PO DAILY 02/06/22 05/08/24 History pyridoxine (vitamin B6) 1 tab PO DAILY 02/06/22 05/08/24 History loratadine 10 mg tablet 10 mg PO DAILY PRN ALLERGIES 10/08/22 05/08/24 History mupirocin 2 % topical ointment 1 applic topical TID PRN scrotal 11/05/22 05/08/24 Rx sores #22 grams diclofenac sodium 1 % topical gel 2 g topical QID PRN Pain 02/05/23 05/08/24 History (Arthritis Pain (diclofenac)) metoprolol succinate 50 mg 50 mg PO QAM #90 tabs 03/10/23 05/08/24 Rx tablet,extended release 24 hr empagliflozin 10 mg tablet 10 mg PO DAILY #90 tabs 06/14/23 05/08/24 Rx (Jardiance) needle (disp) 21 G 21 gauge x 1 #100 ea 09/16/23 05/08/24 Rx 1/2" (BD Eclipse Luer-Jesus) syringe with needle 3 mL 20 gauge #100 ea 09/27/23 05/08/24 Rx x 1 1/2" (BD Luer-Jesus Syringe) nystatin 100,000 unit/gram topical 1 applic topical DAILY 30 days #60 11/02/23 05/08/24 Rx powder grams dutasteride 0.5 mg capsule 0.5 mg PO DAILY #90 caps 11/09/23 05/08/24 Rx (Avodart) hydrocortisone 2.5 % topical cream 1 applic [place] DAILY PRN hemorrhoids 11/09/23 05/08/24 Rx with perineal applicator #30 grams (Anusol-HC) magnesium oxide 400 mg PO DAILY #30 tabs 11/13/23 05/08/24 Rx tadalafil 5 mg tablet (Cialis) 5 mg PO DAILY PRN Other 11/13/23 05/08/24 History bupropion HCl 300 mg 24 hr tablet, 300 mg PO DAILY #30 tabs 11/30/23 05/08/24 Rx extended release losartan 25 mg tablet 25 mg PO DAILY #90 tabs 12/09/23 05/08/24 Rx metformin 500 mg tablet,extended 1,000 mg (2 x 500 mg) PO BID #360 12/20/23 05/08/24 Rx release 24 hr tabs tamsulosin 0.4 mg capsule 0.4 mg PO BID #180 caps 12/27/23 05/08/24 Rx atorvastatin 80 mg tablet 80 mg PO DAILY #90 tabs 12/28/23 05/08/24 Rx allopurinol 300 mg tablet 300 mg PO QAM #90 tabs 12/31/23 05/08/24 Rx naltrexone 50 mg tablet 25 mg (1/2 x 50 mg) PO DAILY #30 01/06/24 05/08/24 Rx tabs testosterone cypionate 200 mg/mL 100 mg (0.5 mL) subcut Q7D #2 mL 02/08/24 05/08/24 Rx intramuscular oil collagenase clostridium histo. 250 1 applic EXT DAILY #30 grams 02/12/24 Rx unit/gram topical ointment (Santyl) OneTouch Verio test strips (blood #100 ea 02/14/24 05/08/24 Rx sugar diagnostic) probiotic 1 dose PO DAILY 02/14/24 05/08/24 History amoxicillin 875 mg-potassium 1 tab PO BIDM #14 tabs 03/18/24 05/08/24 Rx clavulanate 125 mg tablet omeprazole 20 mg tablet,delayed 20 mg PO QAM 03/21/24 05/08/24 History release torsemide 20 mg tablet 10 mg (1/2 x 20 mg) PO DAILY PRN 03/28/24 05/08/24 Rx Fluid Retention #60 tabs acetaminophen 325 mg tablet 650 mg PO QID PRN Pain 04/04/24 05/08/24 History apixaban 5 mg tablet 5 mg PO BID #180 tabs 04/04/24 05/08/24 Rx tramadol 50 mg tablet 50 mg PO Q8H PRN Pain 04/04/24 05/08/24 History piperacillin-tazobactam 3.375 gram 3.375 g IV Q6H 05/01/24 05/08/24 History intravenous solution Patient History Medical History Extreme obesity History of COVID-19 2019 Anxiety Hx of deep venous thrombosis right > s/p knee surgery > prior to 2019 Neuropathy bilat feet Gout GERD (gastroesophageal reflux disease) SABRINA (obstructive sleep apnea) cpap Hypomagnesemia Peripheral arterial disease 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 Diabetic ulcer of toe of left foot follows with wound clinic Burn of left great toe seeing wound clinic Coronary heart disease non-obstructive per [place] [facility] records Diabetes type 2, controlled Hypertension Warfarin anticoagulation Tremor History of myocardial infarction Non-ST elevated [place] 2020 > [place] Alopecia Chronic pain Cor pulmonale (chronic) Degenerative joint disease involving multiple joints on both sides of body Erectile dysfunction Tinea pedis Vitamin D deficiency Surgical History [place] of cardiac cath [place] > [place] > pt unaware if stents History of tooth extraction S/P total knee arthroplasty bilat, then b/l revisions S/P tonsillectomy H/O knee surgery x4 H/O inguinal hernia repair 2016 History of hip surgery 04/2016 and 05/2016, right x2 H/O hernia repair 2016 Hx of cholecystectomy History of bladder surgery Family History Mother FH: Parkinson's disease Breast cancer Father Coronary heart disease Hypertension Cardiac disease Melanoma Skin cancer Unknown Melanoma Denies family history of Ovarian cancer Prostate cancer Myocardial infarction Lung cancer Colorectal cancer Social History Smoking Status: Never smoker Tobacco Type: Declines Second Hand Exposure: No; Do You Dip or Chew Tobacco: No; Tobacco Cessation Education Requested by Patient: No Hx Alcohol Use: No Hx Substance Use: No Preferred Language: Mongolian Communication Ability: Effective Visual Impairment: Limited Hearing Ability: Normal Aws Developer Required: No Beliefs That Will Affect Care: None marital status: Current Living Situation: Spouse current occupational status: retired 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 Other Information That Helps Us Care for You: No Feels Safe at Home: Yes Safety Concerns: Feels Safe At This Time Childhood Exposure to Second-Hand Smoke: Yes Diet: diabetic caffeine: Yes Dental Care, Regularly: No Physical Activity Frequency: Does not Exercise Seatbelt Use: always Sunscreen Use: Yes Do you think of yourself as: straight/heterosexual Assistive Devices: Cane, CPAP and Walker Review of Systems Review of Systems: All systems reviewed & are unremarkable except as noted in HPI & below Physical Exam Physical Exam: General: Comfortable, no acute distress Eyes: Sclerae anicteric Lungs: Clear to auscultation anteriorly Cardiac: Regular rate and rhythm, no murmurs Abdomen: Soft, nontender, Neuro: Distal lower extremity sensation to light touch absent Psych: Alert orient x3, normal affect and mood Extremities/Vascular: -- 1+ radial pulses bilaterally -- Deep right BIOMETRY TEACHER pulse -- Nonpalpable popliteal -- Diminished DP/PT pulses bilaterally -- Chronic venous stasis changes with hyperpigmentation extending to upper marks bilaterally -- 1-2+ edema above the ankle Results & Data Vital Signs (Past 12 Hours) Vital Signs Temp Pulse Pulse Resp BP BP Pulse Ox 05/09/24 15:21 73 18 161/93 H 94 05/09/24 07:11 97.5 F L 71 19 170/90 H 96 O2 Del Method 05/09/24 15:21 Room Air 05/09/24 07:11 Room Air PG Care Time/CCT Total # of Minutes Spent Total Time Spent with Patient: Total time spent is greater than 50% in coordination of care (as documented) at patient's floor/unit and/or counseling patient: Coding Level of Care Code 61818 INT INP/OBS CARE 2MIN Diagnoses Acute osteomyelitis of metatarsal bone of left foot M86.172
--- NOTE | 2024-05-09 16:14 | Pre Anesthesia Assessment ---
Date of Service May 09, 2024 Pre Sedation Assessment Vital Signs Temp Pulse Pulse Pulse Resp BP BP 05/09/24 15:21 73 18 161/93 H 05/09/24 07:11 97.5 F L 71 19 170/90 H 05/08/24 21:30 97.7 F 78 18 164/73 H 05/08/24 21:18 74 20 138/92 05/08/24 20:00 83 18 05/08/24 18:15 74 18 BP Pulse Ox O2 Del Method 05/09/24 15:21 94 Room Air 05/09/24 07:11 96 Room Air 05/08/24 21:30 97 Room Air 05/08/24 21:18 96 Room Air 05/08/24 20:00 185/80 H 96 05/08/24 18:15 172/73 H 97 Room Air Cardiovascular + regular rate Respiratory + respiratory effort normal Pre-Sedation Airway Assessment Smoking Status: Never smoker Hx Sleep Apnea: Yes Hx Difficult Intubation: No Short, Thick Neck: Yes Thyromental Distance: < 3.5 Finger Breadths Oral Cavity: + Dentures Mallampati Class: III ASA: ASA3 NPO Status Date of Last Intake of Solid Food: 05/09/24 Procedure Planning Contraindications for Sedation: none Current Medications Reviewed: Yes Notes The planned sedation has been discussed with the patient. Informed Consent was obtained. I have identified the patient, determined the appropriateness of sedation and have assessed the patient immediately prior to the procedure. All medicine(s) and interventions are by my order.
[2024-05-09] MEDS: LIDOCAINE 1% LOCAL 20 ML VIAL ONE (16:16)
[2024-05-09] MEDS: diphenhydrAMINE 50 MG/ML VIAL ONE (16:17)
[2024-05-09] MEDS: MIDAZOLAM HCL 5 MG/ML 1 ML VIAL ONE ×2 (16:49→16:50)
[2024-05-09] MEDS: NITROGLYCERIN/D5W 100MCG/ML 20ML SYR ONE (16:49)
[2024-05-09] MEDS: fentaNYL citrate PF 100 MCG/2 ML VIAL ONE ×2 (16:49→16:50)
[2024-05-09] MEDS: niCARdipine 2,000 MCG/20 ML SYR ONE (16:50)
--- NOTE | 2024-05-09 17:39 | Post Anesthesia Assessment ---
Date of Service May 09, 2024 Post Sedation Assessment Vital Signs Temp Pulse Pulse Pulse Resp BP BP 05/09/24 15:21 73 18 161/93 H 05/09/24 07:11 97.5 F L 71 19 170/90 H 05/08/24 21:30 97.7 F 78 18 164/73 H 05/08/24 21:18 74 20 138/92 05/08/24 20:00 83 18 05/08/24 18:15 74 18 BP Pulse Ox O2 Del Method 05/09/24 15:21 94 Room Air 05/09/24 07:11 96 Room Air 05/08/24 21:30 97 Room Air 05/08/24 21:18 96 Room Air 05/08/24 20:00 185/80 H 96 05/08/24 18:15 172/73 H 97 Room Air Recovery Score Activity: Moves 4 extremities Respiration: Deep Breath/Cough Circulation: +/-20% PreAnes Value Consciousness: Fully Awake Oxygen Saturation: O2 needed for >90% Discharge Sedation Level of Care: Fast Track Phase II Post Sedation Plan On clinical assessment, the patient appears to have tolerated the sedation without complications. Patient is recovering as anticipated. Patient will continue to be monitored by nursing and may be discharged when sedation discharge criteria are met per below protocol. Upon Completions of procedure up to 15 minutes continue every 5 minute vital signs and the P.A.R. score; then discharge to a Phase I or Fast Track to Phase II per the following guidelines: * Discharge Patient to appropriate Phase II area if PAR is 8 or greater or return to pre- procedure baseline. The post - procedure orders will be as directed. * If PAR score is less than 8 or not return to pre-procedure baseline then patient will follow Phase I monitoring till PAR is reached for Phase II. The Phase I may be done in procedure room or may call to secure a Phase I area. * If naloxone or flumazenil are used for reversal, hold in Phase I for continued monitoring from when last reversal dose was given for a minimum of 60 minutes or longer pending the nurse and/or physician discretion of patient condition before discharge to Phase II. Please call the Sedation Physician to re-evaluate and complete post-note for discharge to Phase II area. Do NOT discharge from procedure sedation or Phase 1 until post- sedation evaluation note is complete by procedure /sedation MD Sedation Discharge Instructions to be given to the patient at discharge to home.
--- NOTE | 2024-05-09 18:10 | Post Operative Brief Note ---
PG Immediate Post Op with CF Date of Surgery May 09, 2024 Pre & Post Diagnosis Peripheral arterial disease I identified the patient and participated in the time-out.: Yes Procedure Peripheral angiogram. Surgeon Ovidio Lauren MD Research And Development Technician Sofi Estimated Blood Loss 20 Findings See Below Left iliacs, SFA/popliteal widely patent. Left SUPERVISOR SHIPFITTERS with diffuse mid severe disease and distal occlusion. Distal SUPERVISOR SHIPFITTERS above the ankle fills slowly via collaterals and extends into the foot giving off patent medial/lateral plantar arteries. Left MONISHA with short distal occlusion. DPA fills via collaterals and extends to midfoot. Left peroneal patent to the ankle. Summary: Severe left MONISHA and SUPERVISOR SHIPFITTERS disease. Plan on possible endovascular intervention with anesthesia later this hospitalization. Anesthesia Type RN Sedation Complications none Disposition Accompanied Patient To Recovery: No Disposition: PCU Overlapping Procedure I was present for: the critical portions of procedure.
[2024-05-09] MEDS: HYDROmorphone INJ 0.5 MG/0.5 ML SYR IV STA (18:12)
[2024-05-09] MEDS: diazePAM 5 MG/ML 10ML VIAL IV STA (20:32)
--- NOTE | 2024-05-09 21:37 | Endovascular Procedure Note ---
PG Endovascular Procedure Rpt Pre & Post Diagnosis Peripheral arterial disease I identified the patient and participated in the time-out.: Yes Procedure Left lower extremity angiogram Surgeon Ovidio Lauren MD Manager Life Sofi Estimated Blood Loss 20 Findings See Below Left lower extremity-- -Common iliacwidely patent -External iliacwidely patent -Internal iliacwidely patent -SKIN CARE TECHNICIAN, profunda widely patent -SFAwidely patent, mild calcified plaque -Poplitealwidely patent TPTwidely patent -ATApatent in proximal/mid segments. Distal occlusion above the ankle. Reconstitutes as DPA via collaterals -PTAcalcified, 100% mid to distal occlusion with collaterals and sluggish f low. PT patent with mild to moderate disease and wraps around ankle. Medial and lateral plantar arteries patent to forefoot -Peronealpatent in proximal/mid segments. Tapers distally to the ankle. Anesthesia Type RN Sedation Complications none Disposition Accompanied Patient To Recovery: No Disposition: PCU Description of Procedure Right SKIN CARE TECHNICIAN access obtained under ultrasound guidance, short 5Fr sheath placed Abdominal aortogram and proximal left lower extremity angiogram performed with RIM catheter. Selective angiography with quick cross catheter placed in distal popliteal artery. Contrast used: 100 Moderate sedation: [id number] Access closure: Mynx Summary: 1. Left lower lower extremity: --widely patent iliacs and SFA/popliteal arteries. 100% distal TECHNOLOGY MANAGER. TECHNOLOGY MANAGER fills via collaterals at the ankle and gives off patent medial/lateral plantar artery which extend to forefoot. 100% distal MONISHA. DPA fills via collaterals, diffuse disease tapers in midfoot. Recommendations: TECHNOLOGY MANAGER and possibly MONISHA appear amenable endovascular intervention. Unable to tolerate moderate sedation. Would need anesthesia assistance for intervention. I attest to the content of the Intraoperative Record and any orders documented therein. Any exceptions are noted below. Vascular Charges Angiography/Venography Procedure 1: Angiography/Venography charges: [id number] Aortography, abd + b/l iliofem LE, catheter, radiological S&I Procedure 2: Angiography/Venography charges: [id number] Initial 3rd order or selective abd, pelvic, or LE branch Additional Services Procedure 1: Additional Services Charges: 46148 Ultrasound guidance - vascular access Procedure 2: Additional Services Charges: 69168 Moderate sedation initial 15 min Procedure 3: Additional Services Charges: 83481 Moderate sedation, each additional 15 min
--- NOTE | 2024-05-09 22:39 | Magnetic Resonance Report ---
Exam(s): MRI LEFT FOOT Without Contrast EXAM: MR Left Lower Extremity Without Intravenous Contrast, Foot CLINICAL HISTORY: Reason for exam: Left foot osteomyelitis/surgical planning. TECHNIQUE: Multiplanar magnetic resonance images of the left foot without intravenous contrast. COMPARISON: No relevant prior studies available. FINDINGS: Acute osteomyelitis of the first metatarsal head and neck. Reactive osteitis changes extend into the proximal shaft. The first metatarsal head appears to be exposed from an overlying ulcer. Surrounding cellulitis. No abscess. IMPRESSION: Acute osteomyelitis of the first metatarsal. Electronically signed by: Eduardo Andrews MD 05/09/24 22:38 PM
--- NOTE | 2024-05-10 05:23 | Electrocardiogram Report ---
Test Reason : Blood Pressure : */* mmHG Vent. Rate : 69 BPM Atrial Rate : * BPM P-R Int : * ms QRS Dur : 82 ms QT Int : 352 ms P-R-T Axes : * -8 67 degrees QTcB Int : 377 ms Atrial fibrillation Anterior infarct Inferior infarct Abnormal ECG When compared with ECG of 16-Mar-2024 19:22, Questionable change in QRS axis Confirmed by Don West ([id number]) on 05/10/2024 5:22:55 AM Referred By: REFERRED SELF Confirmed By: Don West
[2024-05-10 05:46] LABS: Hematocrit (blood only) 36.3 % (42.0-52.0); Hemoglobin 11.7 g/dl (14.0-18.0); Mean Corpuscular Hemoglobin 27.5 pg (25.0-34.0); Mean Corpuscular Hgb Conc 32.2 g/dL (32.0-36.0); Mean Corpuscular Volume 85.2 fL (80.0-100.0); Mean Platelet Volume 9.2 fL (9.4-12.4); Platelet Count 211 K/uL (130-400); RDW Coefficient of Variation 15.8 % (11.5-14.5); Red Blood Count 4.26 M/uL (4.70-6.10); White Blood Count 6.76 K/ul (4.8-10.8)
[2024-05-10 06:04] LABS: BUN Creatinine Ratio 15.1 (10-20); Calcium 8.3 mg/dl (8.6-10.3); Potassium 3.7 mmol/L (3.5-5.1)
[2024-05-10 06:56] LABS: Magnesium 1.5 mg/dl (1.7-2.4)
[2024-05-10] MEDS: LORazepam 0.5 MG TAB PO SCH (07:34)
[2024-05-10] MEDS: LORATADINE 10 MG TAB PO PRN (08:04)
--- NOTE | 2024-05-10 09:32 | Vascular Medicine ProgressNote ---
Date of Service May 10, 2024 Assessment & Plan (1) Acute osteomyelitis of metatarsal bone of left foot: Plan: 2. Type 2 diabetes with neuropathy 3. Lower extremity PAD - Occluded distal LT TURBO GENERATOR OILER, MONISHA with collaterals 4. Persistent atrial fibrillation on anticoagualtion Stable post procedure yesterday. Angiogram confirmed severe distal LT TURBO GENERATOR OILER/MONISHA disease TURBO GENERATOR OILER appears amenable to endovascular intervention and hopeful would help with wound healing. Will plan on LT TURBO GENERATOR OILER angioplasty and possible MONISHA angioplasty at some point this hospitalization. He was unable to tolerate angiogram with moderate sedation. Working on coordinating intervention with anesthesia service. Will follow Admission and Anticipated Discharge Date Admission Date: May 08, 2024 Subjective Feeling fine this morning. Frustrated that he is not aloud to get up. No pain at access site. No significant foot pain. Tele reviewed -- no events. Review of Systems Review of Systems: All systems reviewed & are unremarkable except as noted in HPI & below Physical Exam Physical Exam: General: Comfortable, no acute distress Eyes: Sclerae anicteric Lungs: Clear to auscultation anteriorly Cardiac: irregularly irregular Psych: Alert orient x3, normal affect and mood Extremities/Vascular: -- 1+ radial pulses bilaterally -- Deep right SECURITY MANAGER pulse -- non-tender. No ecchymosis or hematoma. -- Diminished DP/PT pulses bilaterally -- Chronic venous stasis changes with hyperpigmentation extending to upper marks bilaterally -- Dressing in place over LT foot wound. No surrounding erythema. Results & Data Vital Signs (Past 12 Hours) Vital Signs Temp Pulse Pulse Resp BP Pulse Ox O2 Del Method 05/10/24 02:53 98.2 F 73 18 139/68 95 Room Air 05/09/24 22:59 98.2 F 70 18 150/74 H 94 Room Air 05/09/24 22:04 71 PG Care Time/CCT Total # of Minutes Spent Total Time Spent with Patient: Total time spent is greater than 50% in coordination of care (as documented) at patient's floor/unit and/or counseling patient: Coding Level of Care Code 68837 SUB INP/OBS CARE 2/35MIN Diagnoses Acute osteomyelitis of metatarsal bone of left foot M86.172
[2024-05-10 09:57] LABS: ANTI-Xa, UFH(UnfractionatedHep 0.28 IU/ml (0.3-0.7)
--- NOTE | 2024-05-10 13:47 | Hospitalist Progress Note ---
"Date of Service May 10, 2024 Assessment & Plan (1) Osteomyelitis of great toe of left foot: (2) Diabetic peripheral neuropathy associated with type 2 diabetes mellitus: (3) Atrial fibrillation: (4) Hypogonadotropic hypogonadism in male: (5) SABRINA (obstructive sleep apnea): Plan Timothy is a 74M w/ PMH of osteomyelitis of the L great toe s/p amputation 03/24/24, obesity (BMI 50), insomnia, venous insufficiency, SABRINA, dyslipidemia, T2DM w/ neuropathy, BPH, anxiety, hypogonadism on testosterone, GERD, and gout who presents for evaluation of non-healing foot wound. Of note, patient additionally has been on chronic suppressive antibiotics for prosthetic hip infection in past Left Metatarsal Exposure | Osteomyelitis Postoperative wound infection of the left great toe amputation with wound dehiscence - Patient s/p amputation of left great toe for osteomyelitis 03/24/24_ ID consult changed to meropenem - Wound remains unhealed with interval progression concerning for infection - Plain film shows osteomyelitis left first Metatarsal pending resection 05/11/24 Dr Cleestin -peripheral artery disease, complication of diabetes Consultation to Vascular (Dr. Lauren) Angiogram 05/09 suggests distal disease with planned procedure 03/11 to attempt angioplasty DM2 - BSG ACHS and SSI inpatient, A1c in AM Type 2 diabetes with suspected PVD - Chronic Conditions - atrial fibrillation, poa rate control with metoprolol and AC with Eliquis, eliquis on hold with surgery - Gout - continue home medication - GERD - continue home medication - BPH - continue home medication - Anxiety - continue home medication - Hypogonadism - testosterone weekly, held on admission - - Chronic L Hip Wound - wound care consultation placed Code: Full, though previous DNR, discuss further with patient DVT prevention on hold, post procedure will resume Admission and Anticipated Discharge Date Admission Date: May 08, 2024 Subjective pt has resolution of back pain was not npo so surgery bumped to 03/10/25 for osteomyelitis, and revascularization 05/12/24 No significant foot pain. Physical Exam Physical Exam: Pleasant gentleman with chronic venous stasis dermatitis to his lower extrem ities with a dehisced wound on his left great toe area left leg more swollen than right cardiac is regular lungs are clear Results & Data Results & Data Vital Signs (Past 12 Hours) Vital Signs Temp Pulse Pulse Resp BP Pulse Ox O2 Del Method 05/10/24 05:55 64 05/10/24 02:53 98.2 F 73 18 139/68 95 Room Air Laboratory Results review cbc review chemistry low magnesium replete iv as is on po supplementation PG Care Time/CCT Total # of Minutes Spent Total Time Spent with Patient: Total time spent is greater than 50% in coordination of care (as documented) at patient's floor/unit and/or counseling patient: Coding Level of Care Code 77919 SUB INP/OBS CARE 3/50MIN Diagnoses Osteomyelitis of great toe of left foot M86.9 Diabetic peripheral neuropathy associated with type 2 diabetes mellitus E11.42 Atrial fibrillation I48.91 Hypogonadotropic hypogonadism in male E23.0 SARBINA (obstructive sleep apnea) G47.33"
[2024-05-10] MEDS: MAGNESIUM SULFATE / D5W 1 GM/100 ML BAG IV SCH (14:21)
--- NOTE | 2024-05-10 19:24 | Billing Data ---
Date of Service May 10, 2024 Coding Level of Care Code 04406 INT INP/OBS CARE
[2024-05-11 06:39] LABS: Hematocrit (blood only) 38.3 % (42.0-52.0); Hemoglobin 12.2 g/dl (14.0-18.0); Mean Corpuscular Hemoglobin 27.2 pg (25.0-34.0); Mean Corpuscular Hgb Conc 31.9 g/dL (32.0-36.0); Mean Corpuscular Volume 85.5 fL (80.0-100.0); Mean Platelet Volume 9.5 fL (9.4-12.4); Platelet Count 226 K/uL (130-400); RDW Coefficient of Variation 15.7 % (11.5-14.5); RDW Standard Deviation 48.6 fL (36.4-46.3); Red Blood Count 4.48 M/uL (4.70-6.10); White Blood Count 6.68 K/ul (4.8-10.8)
[2024-05-11 07:13] LABS: BUN Creatinine Ratio 22.8 (10-20); Calcium 8.6 mg/dl (8.6-10.3); Creatinine Clr Calc Pharmacy 117.3 ml/min; Potassium 3.9 mmol/L (3.5-5.1)
--- NOTE | 2024-05-11 08:43 | Infectious Disease Progress Nt ---
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 GS neg 05/08 BCx x2: pending 05/08 L foot wound cx: pending. GS neg 05/01 L 1st toe amp site cx: Pseudomonas (I cefepime, pip/tazo. R ceftaz. S cipro, levo, moncho) 03/23 L hallux bone cx: Achromobacter xylosoxidans (S pip/tazo, TMP/SMX. I cefepime. 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 in 05/2016 s/p I+D without hardware removal or replacement on chronic suppressive augmentin (had R hip superficial cx in 08/2023 which showed H parainfluenzae and Prevotella bivia, follows with [facility] ID), bl knee replacements, afib, CAD/AR, GERD, gout, admission 01/2024 with left foot cellulitis with great toe ulcer (MRI neg for OM, WCX with Enterobacter cloacae, treated broadly due to worsening after abx de-escalation with doxy/Levaquin/flagyl x 10d on 02/15), subsequent admission 02/2024 with worsening L great toe wound and MRI showing concern for early acute OM of the L first and second distal phalanges s/p L hallux amputation. CTA aorta runoff without significant arterial stenotic disease. Proximal margin path was clean without osteomyelitis. Bone culture grew Achromobacter xylosoxidans (S pip/tazo, TMP/SMX). He was not placed on antibiotics post-op. He was seen at [facility] on 03/27/24, where it was noted he had discoloration at the tip of the amputation site. He was started on Zosyn 3.375 q6h via PICC. He followed with [facility] wound clinic, where on 05/01 there was noted to be a wound on the L great toe amputation site with slough, necrotic tissue, and moderate serosanguineous drainage. Debridement was done and a wound culture sent, which grew Pseudomonas aeruginosa (I cefepime, pip/tazo. R ceftaz. S cipro, levo, moncho). He was seen for ID follow-up on , at which time the Zosyn was extended another 2 weeks. He was seen in wound clinic again on 05/08, at which time the wound was noted to have deteriorated, with bone exposed, and new open areas to L dorsal foot and dorsal second toe, with cellulitis of the foot. He was advised to present to the ED. On presentation, pt was afebrile without leukocytosis. ESR 54, CRP 3.5. MRI with acute osteomyelitis of L first metatarsal. He was continued on pip/tazo, and given 1 dose of daptomycin. Vascular and Podiatry were consulted. Pip/tazo was changed to meropenem. A wound culture from 05/08 is growing PsA, now R to pip/tazo and cefepime. Recommendations: -Continue meropenem -Please send cultures from the OR, as well as proximal bone margin for pathology. Will follow-up operative findings. -Can hold home suppressive Augmentin while on above IV antibiotics -Will likely require 6 weeks IV antibiotics Will continue to follow Admission and Anticipated Discharge Date Admission Date: May 08, 2024 Subjective This patient recommendation is based on a telemedicine consult request which was completed asynchronously through chart review and information provided by the primary physician. The patient was not seen or examined today. The evaluation is consultative in nature and all patient care and treatment decisions can either be accepted or rejected by the patient's primary hospital-based treating physician using their own independent medical judgment for their patient. Time Spent Reviewing Chart: 11 - 20 minutes Afebrile without leukocytosis Results & Data Vital Signs (Past 12 Hours) Vital Signs Temp Pulse Resp BP Pulse Ox O2 Del Method 02/13/25 07:45 36.4 C L 68 18 155/68 H 91 Room Air 05/11/24 02:48 36.7 C 65 18 120/69 96 Nasal CPAP 05/10/24 22:42 36.6 C 67 18 157/82 H 98 Nasal CPAP Laboratory Results Short CBC 05/11/24 Range/Units 06:04 WBC 6.68 (4.8-10.8) K/ul Hgb 12.2 L (14.0-18.0) g/dl Hct 38.3 L (42.0-52.0) % Plt Count 226 (130-400) K/uL BMP 05/11/24 06:04 Sodium 137 Potassium 3.9 Chloride 106 Carbon Dioxide 25 BUN 18 Creatinine 0.79 Glucose 94 Calcium 8.6 Medications Administered Current Inpatient Medications Allopurinol (Allopurinol 300 Mg Tab) 300 mg PO QAM JESSIE Stop: 06/08/24 08:59 Last Admin: 05/10/24 08:05 Dose: 300 mg Bupropion HCl (Bupropion Xl 300 Mg Tabcr) 300 mg PO DAILY JESSIE Stop: 06/08/24 08:59 Last Admin: 05/10/24 08:05 Dose: 300 mg Dextrose (Dextrose 50% 50 Ml Syringe) 25 - 50 ml IV UD PRN; Protocol PRN Reason: Hypoglycemia Protocol Stop: 06/07/24 22:14 Diclofenac Sodium (Diclofenac Sod 1% Gel 100 Gm Tube) 2 gm EXT QID PRN; Protocol PRN Reason: Pain (Back) Stop: 06/07/24 22:14 Docusate Sodium (Docusate Sodium 100 Mg Cap) 100 mg PO BID PRN PRN Reason: Constipation Stop: 06/07/24 22:14 Finasteride (Finasteride 5 Mg Tab) 5 mg PO DAILY JESSIE Stop: 06/08/24 08:59 Last Admin: 05/10/24 08:04 Dose: 5 mg Glucagon (Glucagon For Inj 1 Mg Vial) 1 mg SQ UD PRN; Protocol PRN Reason: Hypoglycemia Protocol Stop: 06/07/24 22:14 Glucose (Glucose 40% Gel 15 Gm Tube) 15 - 30 gm PO UD PRN; Protocol PRN Reason: Hypoglycemia Protocol Stop: 06/07/24 22:14 Glucose (Glucose 10 Tab/Tube) 4 - 8 tab PO UD PRN; Protocol PRN Reason: Hypoglycemia Protocol Stop: 06/07/24 22:14 Heparin Sodium (Beef Lung) (Heparin 10 Unit/Ml 5 Ml Flush) 5 ml FLUSH PRN PRN PRN Reason: Flush Stop: 06/08/24 03:41 Last Admin: 05/10/24 14:35 Dose: 5 ml Heparin Sodium/Dextrose (Heparin 55051 Unit/500 Ml D5w) 25,000 units in 500 mls @ 36 mls/hr IV .[id number] [facility]; Protocol Stop: 06/07/24 22:14 Last Titration: 05/10/24 10:23 Dose: Infused Meropenem 2,000 mg/ Sodium (Chloride) 100 mls @ 33.333 mls/hr IV Q8H [facility]; Protocol Stop: 06/20/24 13:59 Last Admin: 05/11/24 05:53 Dose: 33.3 mls/hr Insulin Aspart (Insulin Aspart Per Unit Charge) 0 units SC ACHS [facility] Stop: 06/08/24 11:29 Last Admin: 05/11/24 08:05 Dose: Not Given Lactobacillus Acidophilus (Advanced Probiotic 625 Mg Capsule) 625 mg PO DAILY [facility] Stop: 06/08/24 08:59 Last Admin: 05/10/24 08:04 Dose: 625 mg Loratadine (Loratadine 10 Mg Tab) 10 mg PO DAILY PRN PRN Reason: ALLERGIES Stop: 06/07/24 22:14 Last Admin: 05/10/24 08:04 Dose: 10 mg Losartan Potassium (Losartan Potassium 25 Mg Tab) 25 mg PO DAILY [facility] Stop: 06/08/24 08:59 Last Admin: 05/10/24 08:05 Dose: 25 mg Magnesium Oxide (Magnesium Oxide 400 Mg Tab) 400 mg PO DAILY [facility] Stop: 06/08/24 08:59 Last Admin: 05/10/24 08:05 Dose: 400 mg Melatonin (Melatonin 3 Mg Tab) 6 mg PO HS PRN PRN Reason: Insomnia Stop: 06/07/24 22:14 Metoprolol Succinate (Metoprolol Succ 50mg Ext Rel Tab) 50 mg PO QAM [facility] Stop: 06/08/24 08:59 Last Admin: 05/10/24 08:04 Dose: 50 mg Miscellaneous (Carbohydrates For Hypoglycemia ) 15 - 30 gm PO UD PRN PRN Reason: Hypoglycemia Protocol Stop: 06/07/24 22:14 Mupirocin (Mupirocin 2% Oint 22 Gm Tube) 1 appln TOP TID PRN PRN Reason: scrotal sores Stop: 06/07/24 22:14 Naltrexone HCl (Naltrexone Hcl 50 Mg Tab) 25 mg PO DAILY [facility] Stop: 06/08/24 08:59 Last Admin: 05/10/24 08:04 Dose: 25 mg Nystatin (Nystatin Powder 15gm Btl) 1 appln EXT DAILY JESSIE Stop: 06/08/24 08:59 Last Admin: 05/10/24 08:05 Dose: 1 appln Ondansetron HCl (Ondansetron Inj 2 Mg/Ml 2 Ml Vial) 4 mg IV Q6H PRN PRN Reason: Nausea Stop: 06/07/24 22:14 Pantoprazole Sodium (Pantoprazole 40 Mg Tab) 40 mg PO QAM [facility] Stop: 06/08/24 08:59 Last Admin: 05/10/24 08:04 Dose: 40 mg Polyethylene Glycol (Polyethylene (Miralax) 17 Gm Pack) 17 gm PO DAILY PRN PRN Reason: Constipation Stop: 06/07/24 22:14 Tamsulosin HCl (Tamsulosin Hcl 0.4 Mg Cap) 0.4 mg PO BID [facility] Stop: 06/07/24 22:14 Last Admin: 05/10/24 20:35 Dose: 0.4 mg Tramadol HCl (Tramadol Hcl 50 Mg Tablet) 50 mg PO Q8H PRN PRN Reason: Pain Stop: 06/07/24 22:14 Last Admin: 05/11/24 03:12 Dose: 50 mg
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
[2024-05-11] MEDS ORDERED: PROPOFOL IV EMULSION 10 MG/ML 20 ML VIAL IV ONE (10:27)
[2024-05-11] MEDS ORDERED: PROMETHAZINE HCL 6.25 MG in SODIUM CHLORIDE 0.9% 50 ML IV PRN (10:40)
[2024-05-11] MEDS ORDERED: fentaNYL citrate PF 100 MCG/2 ML VIAL IV PRN (10:40)
[2024-05-11] MEDS ORDERED: NALOXONE HCL 0.4 MG/1 ML VIAL/CARP IV PRN (10:40)
[2024-05-11] MEDS: LACTATED RINGER'S 1,000 ML IV SCH (10:40)
[2024-05-11] MEDS ORDERED: LABETALOL HCL IV 5 MG/ML 20ML IV PRN (10:40)
[2024-05-11] MEDS ORDERED: FLUMAZENIL 0.1 MG/1 ML 10 ML VIAL IV PRN (10:40)
[2024-05-11] MEDS ORDERED: ATROPINE SULFATE 0.1 MG/ML 10ML SYR IV PRN (10:40)
[2024-05-11] MEDS ORDERED: ePHEDrine sulfate 50 MG/ML AMP IV PRN (10:40)
[2024-05-11] MEDS ORDERED: ONDANSETRON INJ 2 MG/ML 2 ML VIAL IV PRN (10:40)
--- NOTE | 2024-05-11 10:46 | History & Physical Bridge Note ---
Date of Service May 11, 2024 History & Physical Bridge Note I have examined the patient, reviewed the History & Physical and in the interval since the performance of the History & Physical I have noted the following changes of clinical significance: no changes noted. Plan for partial first ray resection. Preop instructions, postop instructions, risks, and benefits all discussed. Consent obtained at bedside. all questions answered.
[2024-05-11] MEDS ORDERED: fentaNYL citrate PF 100 MCG/2 ML VIAL ONE (10:54)
[2024-05-11] MEDS: BUPIVACAINE 0.5 % 5 MG/1 ML MPF 30ML VIAL ONE (11:00)
[2024-05-11] MEDS ORDERED: KETAMINE HCL 10MG/ML SYR ONE (11:03)
[2024-05-11] MEDS ORDERED: GLYCOPYRROLATE 0.2 MG/ML VIAL ONE (11:30)
--- NOTE | 2024-05-11 11:33 | Post Operative Brief Note ---
Immediate Post Op Note Date of Surgery May 11, 2024 Pre & Post Diagnosis Preoperative diagnosis: Left foot osteomyelitis Postoperative diagnosis: Same I identified the patient and participated in the time-out.: Yes Procedure Procedure: Left first ray resection Surgeon Dez Celestin DPM Multimedia Authoring Specialist Sofi Estimated Blood Loss 20 Findings Consistent with Post-Op Diagnosis Specimens First metatarsal gross pathology First metatarsal proximal margin Anesthesia Type RN Sedation Complications none Disposition Accompanied Patient To Recovery: Yes Disposition: Recovery Room
--- NOTE | 2024-05-11 11:50 | Anesthesiology Progress Note ---
Date of Service May 11, 2024 Anesthesia Post Procedure Vital Signs Vital Signs: Temp Pulse Pulse Pulse Resp BP Pulse Ox 05/11/24 11:45 70 16 125/77 94 05/11/24 11:35 36.7 C 73 20 128/66 97 05/11/24 10:18 36.6 C 71 20 147/82 H 99 05/11/24 07:45 36.4 C L 68 18 155/68 H 91 05/11/24 07:00 67 05/11/24 02:48 36.7 C 65 18 120/69 96 05/10/24 22:42 36.6 C 67 18 157/82 H 98 05/10/24 19:30 36.5 C 66 18 176/79 H 99 05/10/24 15:21 69 18 150/76 H 98 O2 Del Method O2 Flow Rate 05/11/24 11:45 Room Air 05/11/24 11:35 Oxymask 5 05/11/24 10:18 Room Air 05/11/24 07:45 Room Air 05/11/24 07:00 05/11/24 02:48 Nasal CPAP 05/10/24 22:42 Nasal CPAP 05/10/24 19:30 Room Air 05/10/24 15:21 Room Air Pain Intensity Upper Back: Pain Intensity: 6 Transfer of Care Handoff Completed per policy Notes Mental Status: alert / awake / arousable Patient Amnestic to Procedure: Yes Nausea / Vomiting: adequately controlled Pain: adequately controlled Airway Patency, RR, SpO2: stable & adequate BP & HR: stable & adequate Hydration State: stable & adequate Anesthetic Complications: no major complications apparent
--- NOTE | 2024-05-11 12:46 | Hospitalist Progress Note ---
"Date of Service May 11, 2024 Assessment & Plan (1) Osteomyelitis of great toe of left foot: (2) Venous ulcer of left leg: (3) Cellulitis of foot, left: (4) Chronic venous insufficiency: (5) SABRINA (obstructive sleep apnea): (6) Diabetic peripheral neuropathy associated with type 2 diabetes mellitus: (7) Hypogonadotropic hypogonadism in male: (8) Anxiety: (9) BPH (benign prostatic hyperplasia): (10) Gastroesophageal reflux disease: (11) Gout: (12) Infection of right prosthetic hip joint: Plan Timothy is a 74M w/ PMH of osteomyelitis of the L great toe s/p amputation 03/24/24, obesity (BMI 50), insomnia, venous insufficiency, SABRINA, dyslipidemia, T2DM w/ neuropathy, BPH, anxiety, hypogonadism on testosterone, GERD, and gout who presents for evaluation of non-healing foot wound. Of note, patient additionally has infected right hip joint and wound a/w with hip replacement. Left Metatarsal Exposure | Osteomyelitis - Patient s/p amputation of left great toe for osteomyelitis 03/24 - Wound remains unhealed with interval progression concerning for infection - Labs and vitals largely unremarkable, no SIRS + Lactate elevated to 2.5, repeat ordered - XR obtained on admission, pending - Wound cultures 05/08, growing pseudomonas, same as previous wound cultures ID on board, currently on meropenem, will need about 6 weeks of antibiotics Vascular on consult, plan is for revascularization at some point in this admission Podiatry on board, plan is for potential debridement/further amputation today 05/11 Chronic Conditions - Gout - continue home medication - GERD - continue home medication - BPH - continue home medication - Anxiety - continue home medication - Hypogonadism - testosterone weekly, held on admission - DM2 - BSG ACHS and SSI inpatient, A1c in AM - Chronic L Hip Wound - wound care consultation placed Code: Full, though previous DNR, discuss further with patient DVT: Eliquis at home, Heparin inpatient pending intervention Diet: NPO at midnight for potential intervention Consults: Vascular (Leonidas), Podiatry Dispo: Med/Surg pending intervention Admission and Anticipated Discharge Date Admission Date: May 08, 2024 Subjective patient seen and examined, awaiting OR Review of Systems Review of Systems: All systems reviewed are negative, apart from the ones contained in the history. Physical Exam Physical Exam: The patient is awake, alert and oriented 3, well developed and well nourished, normocephalic and atraumatic, lying in bed and in no acute distress. HEENT--PERRL, EOMI, mucous membranes and oropharynx mildly dry Neck--supple. No JVD. No bruits. Thyroid normal, trachea midline, no adenopathy. Heart--normal S1 and S2. No murmurs, rubs or gallops. Lungs--clear bilaterally, no respiratory distress, no accessory muscle use. Abdomen--normal bowel sounds and soft. Extremities--no cyanosis or clubbing. No edema. Dermatologic--normal skin turgor, normal color, no abnormal lymph nodes, no rash. Neurologic--cranial nerves II through XII grossly intact. Rheumatologic--normal range of motion. Psychiatric--normal affect. Results & Data Results & Data Vital Signs (Past 12 Hours) Vital Signs Temp Pulse Pulse Pulse Resp BP Pulse Ox 05/11/24 11:55 98.8 F 66 17 126/75 95 05/11/24 11:45 70 16 125/77 94 05/11/24 11:35 98.1 F 73 20 128/66 97 05/11/24 10:18 97.9 F 71 20 147/82 H 99 05/11/24 07:45 97.5 F L 68 18 155/68 H 91 05/11/24 07:00 67 05/11/24 02:48 98.1 F 65 18 120/69 96 O2 Del Method O2 Flow Rate 05/11/24 11:55 Room Air 05/11/24 11:45 Room Air 05/11/24 11:35 Oxymask 5 05/11/24 10:18 Room Air 05/11/24 07:45 Room Air 05/11/24 07:00 05/11/24 02:48 Nasal CPAP PG Care Time/CCT Total # of Minutes Spent Total Time Spent with Patient: Total time spent is greater than 50% in coordination of care (as documented) at patient's floor/unit and/or counseling patient: Coding Level of Care Code 33094 SUB INP/OBS CARE 2/35MIN Diagnoses Osteomyelitis of great toe of left foot M86.9 Venous ulcer of left leg I83.029; L97.929 Cellulitis of foot, left L03.116 Chronic venous insufficiency I87.2 SABRINA (obstructive sleep apnea) G47.33 Diabetic peripheral neuropathy associated with type 2 diabetes mellitus E11.42 Hypogonadotropic hypogonadism in male E23.0 Anxiety F41.9 BPH (benign prostatic hyperplasia) N40.0 Gastroesophageal reflux disease K21.9 Gout M10.9 Infection of right prosthetic hip joint T84.51XA Time Spent (min) 35"
[2024-05-11] MEDS: ACETAMINOPHEN 325 MG TAB PO PRN (13:16)
[2024-05-11] MEDS ORDERED: KETOROLAC TROMETHAMINE 15 MG/ML VIAL IV ONE (14:59)
[2024-05-11] MEDS: KETOROLAC TROMETHAMINE 15 MG/ML VIAL IV ONE (15:07)
[2024-05-11] MEDS: MoRPHine SULFATE 2 MG/ML CARP IV STA (16:23)
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
[2024-05-12 06:12] LABS: Hematocrit (blood only) 38.5 % (42.0-52.0); Hemoglobin 12.5 g/dl (14.0-18.0); Mean Corpuscular Hemoglobin 27.5 pg (25.0-34.0); Mean Corpuscular Hgb Conc 32.5 g/dL (32.0-36.0); Mean Corpuscular Volume 84.6 fL (80.0-100.0); Mean Platelet Volume 9.7 fL (9.4-12.4); Platelet Count 256 K/uL (130-400); RDW Coefficient of Variation 15.7 % (11.5-14.5); RDW Standard Deviation 48.6 fL (36.4-46.3); Red Blood Count 4.55 M/uL (4.70-6.10); White Blood Count 9.04 K/ul (4.8-10.8)
[2024-05-12 06:30] LABS: Calcium 8.6 mg/dl (8.6-10.3); Potassium 4.5 mmol/L (3.5-5.1)
[2024-05-12 06:36] LABS: BUN Creatinine Ratio 21.8 (10-20); Creatinine Clr Calc Pharmacy 105.9 ml/min
[2024-05-12] MEDS: KETOROLAC TROMETHAMINE 15 MG/ML VIAL IV PRN (06:39)
[2024-05-12] MEDS: MoRPHine SULFATE 2 MG/ML CARP IV PRN (09:18)
--- NOTE | 2024-05-12 12:08 | Infectious Disease Progress Nt ---
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 S cipro, levo, moncho). GS neg 05/08 BCx x2: NGTD 05/08 L foot wound cx: Pseudomonas. GS neg 05/01 L 1st toe amp site cx: Pseudomonas (I cefepime, pip/tazo. R ceftaz. S cipro, levo, moncho) 03/23 L hallux bone cx: Achromobacter xylosoxidans (S pip/tazo, TMP/SMX. I cefepime. 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 in 05/2016 s/p I+D without hardware removal or replacement on chronic suppressive augmentin (had R hip superficial cx in 08/2023 which showed H parainfluenzae and Prevotella bivia, follows with [facility] ID), bl knee replacements, afib, CAD/NH, GERD, gout, admission 01/2024 with left foot cellulitis with great toe ulcer (MRI neg for OM, WCX with Enterobacter cloacae, treated broadly due to worsening after abx de-escalation with doxy/Levaquin/flagyl x 10d on 02/15), subsequent admission 02/2024 with worsening L great toe wound and MRI showing concern for early acute OM of the L first and second distal phalanges s/p L hallux amputation. CTA aorta runoff without significant arterial stenotic disease. Proximal margin path was clean without osteomyelitis. Bone culture grew Achromobacter xylosoxidans (S pip/tazo, TMP/SMX). He was not placed on antibiotics post-op. He was seen at [facility] on 03/27/24, where it was noted he had discoloration at the tip of the amputation site. He was started on Zosyn 3.375 q6h via PICC. He followed with the wound clinic, where on 05/01 there was noted to be a wound on the L great toe amputation site with slough, necrotic tissue, and moderate serosanguineous drainage. Debridement was done and a wound culture sent, which grew Pseudomonas aeruginosa (I cefepime, pip/tazo. R ceftaz. S cipro, levo, moncho). He was seen for ID follow-up on , at which time the Zosyn was extended another 2 weeks. He was seen in wound clinic again on 05/08, at which time the wound was noted to have deteriorated, with bone exposed, and new open areas to L dorsal foot and dorsal second toe, with cellulitis of the foot. He was advised to present to the ED. On presentation, pt was afebrile without leukocytosis. ESR 54, CRP 3.5. MRI with acute osteomyelitis of L first metatarsal. He was continued on pip/tazo, and given 1 dose of daptomycin. Vascular and Podiatry were consulted. Pip/tazo was changed to meropenem. A wound culture from 05/08 is growing PsA, now R to pip/tazo and cefepime. Pt underwent L first ray resection on 05/11/24--no cultures sent, but path pending. In discussion with podiatry, there is concern for residual osteomyelitis. Unable to resect further, unless proceeding to BKA--no current plans for return to the OR. Recommendations: -Continue meropenem 2 g IV q8h via PICC to complete a 6 week course from date of OR (05/11 - 06/21/24). (If easier for dosing as outpatient, can alternatively administer as 12 hour continuous infusions: 3 g IV q12h over 12-hour infusion) -Check weekly CBC with diff, CMP while on meropenem to monitor for toxicity -Please arrange for follow-up with patient's ID physician at [facility] -Can hold home suppressive Augmentin while on above IV antibiotics. Please restart after completing above 6 week course of IV antibiotics. Will sign off. Admission and Anticipated Discharge Date Admission Date: May 08, 2024 Subjective This patient recommendation is based on a telemedicine consult request which was completed asynchronously through chart review and information provided by the primary physician. The patient was not seen or examined today. The evaluation is consultative in nature and all patient care and treatment decisions can either be accepted or rejected by the patient's primary hospital-based treating physician using their own independent medical judgment for their patient. Time Spent Reviewing Chart: 21 - 30 minutes Results & Data Vital Signs (Past 12 Hours) Vital Signs Temp Pulse Pulse Resp BP Pulse Ox O2 Del Method 05/12/24 11:42 36.5 C 56 L 18 132/72 96 Room Air 05/12/24 07:55 36.3 C L 69 18 165/78 H 93 Room Air 05/12/24 07:00 69 05/12/24 03:07 37.0 C 66 20 159/84 H 94 CPAP Laboratory Results Short CBC 05/12/24 Range/Units 05:48 WBC 9.04 (4.8-10.8) K/ul Hgb 12.5 L (14.0-18.0) g/dl Hct 38.5 L (42.0-52.0) % Plt Count 256 (130-400) K/uL BMP 05/12/24 05:48 Sodium 137 Potassium 4.5 Chloride 104 Carbon Dioxide 24 BUN 19 Creatinine 0.87 Glucose 110 H Calcium 8.6 Medications Administered Current Inpatient Medications Acetaminophen (Acetaminophen 325 Mg Tab) 650 mg PO Q4H PRN PRN Reason: Pain or Fever Stop: 06/10/24 12:56 Last Admin: 05/11/24 13:16 Dose: 650 mg Allopurinol (Allopurinol 300 Mg Tab) 300 mg PO QAM JESSIE Stop: 06/08/24 08:59 Last Admin: 05/12/24 09:20 Dose: 300 mg Bupropion HCl (Bupropion Xl 300 Mg Tabcr) 300 mg PO DAILY JESSIE Stop: 06/08/24 08:59 Last Admin: 05/12/24 09:20 Dose: 300 mg Dextrose (Dextrose 50% 50 Ml Syringe) 25 - 50 ml IV UD PRN; Protocol PRN Reason: Hypoglycemia Protocol Stop: 06/07/24 22:14 Diclofenac Sodium (Diclofenac Sod 1% Gel 100 Gm Tube) 2 gm EXT QID PRN; Protocol PRN Reason: Pain (Back) Stop: 06/07/24 22:14 Docusate Sodium (Docusate Sodium 100 Mg Cap) 100 mg PO BID PRN PRN Reason: Constipation Stop: 06/07/24 22:14 Finasteride (Finasteride 5 Mg Tab) 5 mg PO DAILY JESSIE Stop: 06/08/24 08:59 Last Admin: 05/12/24 09:21 Dose: 5 mg Glucagon (Glucagon For Inj 1 Mg Vial) 1 mg SQ UD PRN; Protocol PRN Reason: Hypoglycemia Protocol Stop: 06/07/24 22:14 Glucose (Glucose 40% Gel 15 Gm Tube) 15 - 30 gm PO UD PRN; Protocol PRN Reason: Hypoglycemia Protocol Stop: 06/07/24 22:14 Glucose (Glucose 10 Tab/Tube) 4 - 8 tab PO UD PRN; Protocol PRN Reason: Hypoglycemia Protocol Stop: 06/07/24 22:14 Heparin Sodium (Beef Lung) (Heparin 10 Unit/Ml 5 Ml Flush) 5 ml FLUSH PRN PRN PRN Reason: Flush Stop: 06/08/24 03:41 Last Admin: 05/10/24 14:35 Dose: 5 ml Heparin Sodium/Dextrose (Heparin 34404 Unit/500 Ml D5w) 25,000 units in 500 mls @ 36 mls/hr IV .[id number] [facility]; Protocol Stop: 06/07/24 22:14 Last Titration: 05/10/24 10:23 Dose: Infused Meropenem 2,000 mg/ Sodium (Chloride) 100 mls @ 33.333 mls/hr IV Q8H [facility]; Protocol Stop: 06/20/24 13:59 Last Infusion: 05/12/24 09:52 Dose: Infused Insulin Aspart (Insulin Aspart Per Unit Charge) 0 units SC ACHS [facility] Stop: 06/08/24 11:29 Last Admin: 05/12/24 08:09 Dose: Not Given Ketorolac Tromethamine (Ketorolac Tromethamine 15 Mg/Ml Vial) 15 mg IV Q6H PRN PRN Reason: Pain Stop: 05/12/24 19:59 Last Admin: 05/12/24 06:39 Dose: 15 mg Lactobacillus Acidophilus (Advanced Probiotic 625 Mg Capsule) 625 mg PO DAILY [facility] Stop: 06/08/24 08:59 Last Admin: 05/12/24 09:20 Dose: 625 mg Loratadine (Loratadine 10 Mg Tab) 10 mg PO DAILY PRN PRN Reason: ALLERGIES Stop: 06/07/24 22:14 Last Admin: 05/10/24 08:04 Dose: 10 mg Losartan Potassium (Losartan Potassium 25 Mg Tab) 25 mg PO DAILY [facility] Stop: 06/08/24 08:59 Last Admin: 05/12/24 09:20 Dose: 25 mg Magnesium Oxide (Magnesium Oxide 400 Mg Tab) 400 mg PO DAILY [facility] Stop: 06/08/24 08:59 Last Admin: 05/12/24 09:21 Dose: 400 mg Melatonin (Melatonin 3 Mg Tab) 6 mg PO HS PRN PRN Reason: Insomnia Stop: 06/07/24 22:14 Metoprolol Succinate (Metoprolol Succ 50mg Ext Rel Tab) 50 mg PO QAM [facility] Stop: 06/08/24 08:59 Last Admin: 05/12/24 09:20 Dose: 50 mg Miscellaneous (Carbohydrates For Hypoglycemia ) 15 - 30 gm PO UD PRN PRN Reason: Hypoglycemia Protocol Stop: 06/07/24 22:14 Morphine Sulfate (Morphine Sulfate 2 Mg/Ml Carp) 2 mg IV Q4 PRN PRN Reason: Pain Stop: 05/26/24 08:57 Last Admin: 05/12/24 09:18 Dose: 2 mg Mupirocin (Mupirocin 2% Oint 22 Gm Tube) 1 appln TOP TID PRN PRN Reason: scrotal sores Stop: 06/07/24 22:14 Naltrexone HCl (Naltrexone Hcl 50 Mg Tab) 25 mg PO DAILY [facility] Stop: 06/08/24 08:59 Last Admin: 05/12/24 09:09 Dose: Not Given Nystatin (Nystatin Powder 15gm Btl) 1 appln EXT DAILY [facility] Stop: 06/08/24 08:59 Last Admin: 05/12/24 09:21 Dose: 1 appln Ondansetron HCl (Ondansetron Inj 2 Mg/Ml 2 Ml Vial) 4 mg IV Q6H PRN PRN Reason: Nausea Stop: 06/07/24 22:14 Pantoprazole Sodium (Pantoprazole 40 Mg Tab) 40 mg PO QAM [facility] Stop: 06/08/24 08:59 Last Admin: 05/12/24 09:20 Dose: 40 mg Polyethylene Glycol (Polyethylene (Miralax) 17 Gm Pack) 17 gm PO DAILY PRN PRN Reason: Constipation Stop: 06/07/24 22:14 Tamsulosin HCl (Tamsulosin Hcl 0.4 Mg Cap) 0.4 mg PO BID [facility] Stop: 06/07/24 22:14 Last Admin: 05/12/24 09:20 Dose: 0.4 mg Tramadol HCl (Tramadol Hcl 50 Mg Tablet) 50 mg PO Q8H PRN PRN Reason: Pain Stop: 06/07/24 22:14 Last Admin: 05/11/24 03:12 Dose: 50 mg
--- NOTE | 2024-05-12 12:09 | Hospitalist Progress Note ---
"Date of Service May 12, 2024 Assessment & Plan (1) Osteomyelitis of great toe of left foot: (2) Venous ulcer of left leg: (3) Cellulitis of foot, left: (4) Chronic venous insufficiency: (5) SABRINA (obstructive sleep apnea): (6) Diabetic peripheral neuropathy associated with type 2 diabetes mellitus: (7) Hypogonadotropic hypogonadism in male: (8) Anxiety: (9) BPH (benign prostatic hyperplasia): (10) Gastroesophageal reflux disease: (11) Gout: (12) Infection of right prosthetic hip joint: Plan Timothy is a 74M w/ PMH of osteomyelitis of the L great toe s/p amputation 03/24/24, obesity (BMI 50), insomnia, venous insufficiency, SABRINA, dyslipidemia, T2DM w/ neuropathy, BPH, anxiety, hypogonadism on testosterone, GERD, and gout who presents for evaluation of non-healing foot wound. Of note, patient additionally has infected right hip joint and wound a/w with hip replacement. Left Metatarsal Exposure | Osteomyelitis - Patient s/p amputation of left great toe for osteomyelitis 03/24 - Wound remains unhealed with interval progression concerning for infection - Now s/p 1st ray amputation on 05/11 by Podiatry - Wound cultures 05/08, growing pseudomonas, same as previous wound cultures -ID on board, currently on meropenem, will need about 6 weeks of antibiotics -Vascular on consult, plan is for angiography today, 05/12 Chronic Conditions - Gout - continue home medication - GERD - continue home medication - BPH - continue home medication - Anxiety - continue home medication - Hypogonadism - testosterone weekly, held on admission - DM2 - BSG ACHS and SSI inpatient, A1c in AM - Chronic L Hip Wound - wound care consultation placed Code: Full, though previous DNR, discuss further with patient DVT: Eliquis at home, Heparin inpatient pending intervention Diet: Consults: Vascular (Leonidas), Podiatry Dispo: Med/Surg pending intervention Admission and Anticipated Discharge Date Admission Date: May 08, 2024 Subjective patient seen and examined, awaiting OR Review of Systems Review of Systems: All systems reviewed are negative, apart from the ones contained in the history. Physical Exam Physical Exam: The patient is awake, alert and oriented 3, well developed and well nourished, normocephalic and atraumatic, lying in bed and in no acute distress. HEENT--PERRL, EOMI, mucous membranes and oropharynx mildly dry Neck--supple. No JVD. No bruits. Thyroid normal, trachea midline, no adenopathy. Heart--normal S1 and S2. No murmurs, rubs or gallops. Lungs--clear bilaterally, no respiratory distress, no accessory muscle use. Abdomen--normal bowel sounds and soft. Extremities--no cyanosis or clubbing. No edema. Dermatologic--normal skin turgor, normal color, no abnormal lymph nodes, no rash. Neurologic--cranial nerves II through XII grossly intact. Rheumatologic--normal range of motion. Psychiatric--normal affect. Results & Data Results & Data Vital Signs (Past 12 Hours) Vital Signs Temp Pulse Pulse Resp BP Pulse Ox O2 Del Method 05/12/24 11:42 97.7 F 56 L 18 132/72 96 Room Air 05/12/24 07:55 97.3 F L 69 18 165/78 H 93 Room Air 05/12/24 07:00 69 05/12/24 03:07 98.6 F 66 20 159/84 H 94 CPAP PG Care Time/CCT Total # of Minutes Spent Total Time Spent with Patient: Total time spent is greater than 50% in coordination of care (as documented) at patient's floor/unit and/or counseling patient: Coding Level of Care Code 81224 SUB INP/OBS CARE 2/35MIN Diagnoses Osteomyelitis of great toe of left foot M86.9 Venous ulcer of left leg I83.029; L97.929 Cellulitis of foot, left L03.116 Chronic venous insufficiency I87.2 SABRINA (obstructive sleep apnea) G47.33 Diabetic peripheral neuropathy associated with type 2 diabetes mellitus E11.42 Hypogonadotropic hypogonadism in male E23.0 Anxiety F41.9 BPH (benign prostatic hyperplasia) N40.0 Gastroesophageal reflux disease K21.9 Gout M10.9 Infection of right prosthetic hip joint T84.51XA Time Spent (min) 35"
--- NOTE | 2024-05-12 17:41 | Vascular Medicine ProgressNote ---
Date of Service May 12, 2024 Assessment & Plan (1) Acute osteomyelitis of metatarsal bone of left foot: Plan: 2. Type 2 diabetes with neuropathy 3. Lower extremity PAD - Occluded distal LT [employer], MONISHA with collaterals 4. Persistent atrial fibrillation on anticoagualtion Post left first ray resection yesterday with podiatry Plan is for 6 weeks of IV antibiotics with meropenem for Pseudomonas Angiogram on 05/09 confirmed severe distal LT [employer]/MONISHA disease [employer] appears amenable to endovascular intervention and am hopeful would help with wound healing. Patient was unable to tolerate prior angiogram with moderate sedation. Intervention to left [employer]/MONISHA will be done in OR with anesthesia. Unable to be done today due to urgent case. Patient on schedule for procedure on Wednesday morning at 8 AM. Please keep n.p.o. past midnight. Heparin off on-call to preop. Admission and Anticipated Discharge Date Admission Date: May 08, 2024 Subjective Feeling well this morning. Pain involving left foot reasonably controlled. Telemetry reviewedno events Review of Systems Review of Systems: All systems reviewed & are unremarkable except as noted in HPI & below Physical Exam Physical Exam: General: Comfortable, no acute distress Eyes: Sclerae anicteric Lungs: Clear to auscultation anteriorly Cardiac: irregularly irregular Psych: Alert orient x3, normal affect and mood Extremities/Vascular: -- 1+ radial pulses bilaterally -- Deep right TOP COATER pulse. No ecchymosis or hematoma. -- Dressing in place over LT foot wound. No surrounding erythema. Results & Data Vital Signs (Past 12 Hours) Vital Signs Temp Pulse Pulse Resp BP Pulse Ox O2 Del Method 05/12/24 15:56 98.1 F 66 16 157/93 H 96 BiPAP 05/12/24 11:42 97.7 F 56 L 18 132/72 96 Room Air 05/12/24 07:55 97.3 F L 69 18 165/78 H 93 Room Air 05/12/24 07:00 69 PG Care Time/CCT Total # of Minutes Spent Total Time Spent with Patient: Total time spent is greater than 50% in coordination of care (as documented) at patient's floor/unit and/or counseling patient: Coding Level of Care Code 43665 SUB INP/OBS CARE 2/35MIN Diagnoses Acute osteomyelitis of metatarsal bone of left foot M86.172
[2024-05-12] MEDS: MELATONIN 3 MG TAB PO PRN (20:06)
--- NOTE | 2024-05-12 21:39 | Podiatry Progress Note ---
Date of Service May 12, 2024 Assessment & Plan (1) Osteomyelitis of great toe of left foot: (2) Peripheral arterial disease: (3) 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: (4) Diabetic ulcer of toe of left foot: (5) Burn of left great toe: Plan Patient examined and evaluated earlier this afternoon. - POD #1, Dressing changed, packing pulled from 1st ray resection site. - Anticipating vascular intervention later today to help improve surgical site healing - Can leave current dressing intact until next week. Can WBAT in surgical shoe, would benefit from therapy for strengthening. - Could consider discharge to inpatient rehab given his chronic infection and weakness/conditioning. - Will check back on Wednesday. Can d/c if stable sooner. Would follow-up outpatient next week in that case. Admission and Anticipated Discharge Date Admission Date: May 08, 2024 Subjective Patient seen at bedside at lunchtime. No new concerns. Scheduled for vascular intervention in an hour or two. Has controlled foot pain to the left surgical site. No new systemic symptoms of infection. Feeling good since surgery yesterday, POD #1 s/p left first ray resection. Review of Systems Constitutional: no fever, no chills and no fatigue Eyes: no problem reported Ear, Nose, Mouth, Throat: no problem reported Respiratory: no problem reported Cardiovascular: + edema; no problem reported Gastrointestinal: no nausea, no vomiting and no problem reported Musculoskeletal: no problem reported Integumentary: + skin ulcer, + wounds and + erythema Neurologic: + loss of sensation, + numbness and + pa resthesia; no generalized weakness Psychiatric: no problem reported Physical Exam Physical Exam: Lower extremity focused exam: DP/PT pulses nonpalpable. Diffuse bilateral lower extremity pitting edema is noted. Left hallux amputation site is closed primarily again after 1st metatarsal resection. Sutures intact without purulence. Packing was intact but removed uneventfully. Bleeding is noted with removal, though light bleeding rather than acute postoperative bleeding. No ascending cellulitis. No calf pain. Edema is improving. Pain is noted on palpation, though none on packing removal, consistent with surgical intervention. Constitutional: WD/WN, vitals as above + ill appearing and + morbidly obese Eyes: PERRL, conjunctivae normal, anicteric sclerae ENMT: external ear and nose normal, oropharynx normal Neck: trachea midline, no thyromegaly normal visual inspection Respiratory: normal respiratory effort; no respiratory distress Cardiovascular: Rate/Rhythm: regular rate and regular rhythm Chest (Breasts): Chest: normal inspection of chest Gastrointestinal (Abdomen): Inspection/Auscultation: abdomen normal to inspection Percussion/Palpation: + abdomen tender and abdomen soft Musculoskeletal: no cyanosis or clubbing, extremities motor strength 5/5 Head/Neck/Chest: normocephalic and head atraumatic Extremities: extremities normal to inspection and + amputation noted Skin: + ulcer, + wound, + skin atrophy, + dry skin, + erythema and + nails dystrophic Neurologic: awake; + abnormal touch/pain/proprioception, + abnormal sensation to monofilament and no focal motor deficits Psychiatric: A+Ox3, euthymic affect Results & Data Results & Data Vital Signs (Past 12 Hours) Vital Signs Temp Pulse Resp BP Pulse Ox O2 Del Method 05/12/24 19:00 36.4 C L 88 24 142/75 H 96 Nasal CPAP 05/12/24 15:56 36.7 C 66 16 157/93 H 96 BiPAP 05/12/24 11:42 36.5 C 56 L 18 132/72 96 Room Air (4) Diabetic ulcer of toe of left foot Diabetes mellitus type: type 2 Non-pressure ulcer stage: with fat layer exposed Qualified Code(s): E11.621 - Type 2 diabetes mellitus with foot ulcer; L97.522 - Non-pressure chronic ulcer of other part of left foot with fat layer exposed
[2024-05-13 08:02] LABS: Hematocrit (blood only) 39.6 % (42.0-52.0); Mean Corpuscular Hemoglobin 27.8 pg (25.0-34.0); Mean Corpuscular Hgb Conc 32.8 g/dL (32.0-36.0); Mean Corpuscular Volume 84.8 fL (80.0-100.0); Mean Platelet Volume 9.5 fL (9.4-12.4); Platelet Count 267 K/uL (130-400); RDW Coefficient of Variation 15.7 % (11.5-14.5); RDW Standard Deviation 47.9 fL (36.4-46.3); Red Blood Count 4.67 M/uL (4.70-6.10); White Blood Count 9.58 K/ul (4.8-10.8)
[2024-05-13] MEDS: DOCUSATE SODIUM 100 MG CAP PO PRN (08:06)
[2024-05-13 08:21] LABS: BUN Creatinine Ratio 22.1 (10-20); Calcium 8.6 mg/dl (8.6-10.3); Creatinine Clr Calc Pharmacy 119.6 ml/min
--- NOTE | 2024-05-13 12:23 | Hospitalist Progress Note ---
"Date of Service May 13, 2024 Assessment & Plan (1) Osteomyelitis of great toe of left foot: (2) Venous ulcer of left leg: (3) Cellulitis of foot, left: (4) Chronic venous insufficiency: (5) SABRINA (obstructive sleep apnea): (6) Diabetic peripheral neuropathy associated with type 2 diabetes mellitus: (7) Hypogonadotropic hypogonadism in male: (8) Anxiety: (9) BPH (benign prostatic hyperplasia): (10) Gastroesophageal reflux disease: (11) Gout: (12) Infection of right prosthetic hip joint: Marlene Aguirre is a 74M w/ PMH of osteomyelitis of the L great toe s/p amputation 03/24/24, obesity (BMI 50), insomnia, venous insufficiency, SABRINA, dyslipidemia, T2DM w/ neuropathy, BPH, anxiety, hypogonadism on testosterone, GERD, and gout who presents for evaluation of non-healing foot wound. Of note, patient additionally has infected right hip joint and wound a/w with hip replacement. Left Metatarsal Exposure | Osteomyelitis - Patient s/p amputation of left great toe for osteomyelitis 03/24 - Wound remains unhealed with interval progression concerning for infection - Now s/p 1st ray amputation on 05/11 by Podiatry - Wound cultures 05/08, growing pseudomonas, same as previous wound cultures -ID on board, currently on Meropenem, will need about 6 weeks of antibiotics. he already has a PIIC line -Vascular on consult, plan is for angiography on Wednesday Chronic Conditions - Gout - continue home medication - GERD - continue home medication - BPH - continue home medication - Anxiety - continue home medication - Hypogonadism - testosterone weekly, held on admission - DM2 - BSG ACHS and SSI inpatient, A1c in AM - Chronic L Hip Wound - wound care consultation placed Code: Full, though previous DNR, discuss further with patient DVT: Eliquis at home, Heparin inpatient pending intervention Diet: Consults: Vascular (Leonidas), Podiatry Dispo: Med/Surg pending intervention Admission and Anticipated Discharge Date Admission Date: May 08, 2024 Subjective patient seen and examined, no new complaints Review of Systems Review of Systems: All systems reviewed are negative, apart from the ones contained in the history. Physical Exam Physical Exam: The patient is awake, alert and oriented 3, well developed and well nourished, normocephalic and atraumatic, lying in bed and in no acute distress. HEENT--PERRL, EOMI, mucous membranes and oropharynx mildly dry Neck--supple. No JVD. No bruits. Thyroid normal, trachea midline, no adenopathy. Heart--normal S1 and S2. No murmurs, rubs or gallops. Lungs--clear bilaterally, no respiratory distress, no accessory muscle use. Abdomen--normal bowel sounds and soft. Extremities--no cyanosis or clubbing. No edema. Dermatologic--normal skin turgor, normal color, no abnormal lymph nodes, no rash. Neurologic--cranial nerves II through XII grossly intact. Rheumatologic--normal range of motion. Psychiatric--normal affect. Results & Data Results & Data Vital Signs (Past 12 Hours) Vital Signs Temp Pulse Pulse Resp BP Pulse Ox O2 Del Method 05/13/24 11:11 97.5 F L 51 L 118/59 L 96 Room Air 05/13/24 10:06 Room Air 05/13/24 07:38 98.2 F 102 H 159/76 H 96 Room Air 05/13/24 07:35 59 L 05/13/24 03:19 98.1 F 64 17 188/76 H 92 Room Air PG Care Time/CCT Total # of Minutes Spent Total Time Spent with Patient: Total time spent is greater than 50% in coordination of care (as documented) at patient's floor/unit and/or counseling patient: Coding Level of Care Code 71858 SUB INP/OBS CARE 2/35MIN Diagnoses Osteomyelitis of great toe of left foot M86.9 Venous ulcer of left leg I83.029; L97.929 Cellulitis of foot, left L03.116 Chronic venous insufficiency I87.2 SABRINA (obstructive sleep apnea) G47.33 Diabetic peripheral neuropathy associated with type 2 diabetes mellitus E11.42 Hypogonadotropic hypogonadism in male E23.0 Anxiety F41.9 BPH (benign prostatic hyperplasia) N40.0 Gastroesophageal reflux disease K21.9 Gout M10.9 Infection of right prosthetic hip joint T84.51XA Time Spent (min) 35"
[2024-05-14 09:11] LABS: Hematocrit (blood only) 39.9 % (42.0-52.0); Hemoglobin 13.1 g/dl (14.0-18.0); Mean Corpuscular Hemoglobin 27.6 pg (25.0-34.0); Mean Corpuscular Hgb Conc 32.8 g/dL (32.0-36.0); Mean Platelet Volume 10.2 fL (9.4-12.4); Platelet Count 292 K/uL (130-400); RDW Coefficient of Variation 15.6 % (11.5-14.5); Red Blood Count 4.75 M/uL (4.70-6.10); White Blood Count 9.06 K/ul (4.8-10.8)
[2024-05-14 09:27] LABS: BUN Creatinine Ratio 21.1 (10-20); Calcium 8.7 mg/dl (8.6-10.3); Creatinine Clr Calc Pharmacy 121.2 ml/min; Potassium 3.9 mmol/L (3.5-5.1)
--- NOTE | 2024-05-14 09:45 | Hospitalist Progress Note ---
"Date of Service May 14, 2024 Assessment & Plan (1) Osteomyelitis of great toe of left foot: (2) Venous ulcer of left leg: (3) Cellulitis of foot, left: (4) Chronic venous insufficiency: (5) SABRINA (obstructive sleep apnea): (6) Diabetic peripheral neuropathy associated with type 2 diabetes mellitus: (7) Hypogonadotropic hypogonadism in male: (8) Anxiety: (9) BPH (benign prostatic hyperplasia): (10) Gastroesophageal reflux disease: (11) Gout: (12) Infection of right prosthetic hip joint: Marlene Aguirre is a 74M w/ PMH of osteomyelitis of the L great toe s/p amputation 03/24/24, obesity (BMI 50), insomnia, venous insufficiency, SABRINA, dyslipidemia, T2DM w/ neuropathy, BPH, anxiety, hypogonadism on testosterone, GERD, and gout who presents for evaluation of non-healing foot wound. Of note, patient additionally has infected right hip joint and wound a/w with hip replacement. Left Metatarsal Exposure | Osteomyelitis - Patient s/p amputation of left great toe for osteomyelitis 03/24 - Wound remains unhealed with interval progression concerning for infection - Now s/p 1st ray amputation on 05/11 by Podiatry - Wound cultures 05/08, growing pseudomonas, same as previous wound cultures -ID on board, currently on Meropenem, will need about 6 weeks of antibiotics. he already has a PIIC line -Vascular on consult, plan is for angiography on Monday 05/15 Chronic Conditions - Gout - continue home medication - GERD - continue home medication - BPH - continue home medication - Anxiety - continue home medication - Hypogonadism - testosterone weekly, held on admission - DM2 - BSG ACHS and SSI inpatient, A1c in AM - Chronic L Hip Wound - wound care consultation placed Code: Full, though previous DNR, discuss further with patient DVT: Eliquis at home, Heparin inpatient pending intervention Diet: Consults: Vascular (Leonidas), Podiatry Dispo: Med/Surg pending intervention Admission and Anticipated Discharge Date Admission Date: May 08, 2024 Subjective patient seen and examined, no new complaints, said his PIIC line malfunctioned Review of Systems Review of Systems: All systems reviewed are negative, apart from the ones contained in the history. Physical Exam Physical Exam: The patient is awake, alert and oriented 3, well developed and well nourished, normocephalic and atraumatic, lying in bed and in no acute distress. HEENT--PERRL, EOMI, mucous membranes and oropharynx mildly dry Neck--supple. No JVD. No bruits. Thyroid normal, trachea midline, no adenopathy. Heart--normal S1 and S2. No murmurs, rubs or gallops. Lungs--clear bilaterally, no respiratory distress, no accessory muscle use. Abdomen--normal bowel sounds and soft. Extremities--no cyanosis or clubbing. No edema. Dermatologic--normal skin turgor, normal color, no abnormal lymph nodes, no rash. Neurologic--cranial nerves II through XII grossly intact. Rheumatologic--normal range of motion. Psychiatric--normal affect. Results & Data Results & Data Vital Signs (Past 12 Hours) Vital Signs Temp Pulse Pulse Resp BP Pulse Ox O2 Del Method 05/14/24 07:44 97.9 F 78 16 148/81 H 95 Room Air 05/14/24 07:24 Room Air 05/14/24 07:23 59 L 05/14/24 02:59 98.2 F 60 16 160/61 H 96 Room Air 05/13/24 23:18 98.2 F 60 17 149/62 H 94 Room Air 05/13/24 22:00 54 L PG Care Time/CCT Total # of Minutes Spent Total Time Spent with Patient: Total time spent is greater than 50% in coordination of care (as documented) at patient's floor/unit and/or counseling patient: Coding Level of Care Code 70997 SUB INP/OBS CARE 2/35MIN Diagnoses Osteomyelitis of great toe of left foot M86.9 Venous ulcer of left leg I83.029; L97.929 Cellulitis of foot, left L03.116 Chronic venous insufficiency I87.2 SABRINA (obstructive sleep apnea) G47.33 Diabetic peripheral neuropathy associated with type 2 diabetes mellitus E11.42 Hypogonadotropic hypogonadism in male E23.0 Anxiety F41.9 BPH (benign prostatic hyperplasia) N40.0 Gastroesophageal reflux disease K21.9 Gout M10.9 Infection of right prosthetic hip joint T84.51XA Time Spent (min) 35"
--- NOTE | 2024-05-14 14:07 | XRay Report ---
Chest radiograph, one view History: Chest pain Comparison: 05/08/2024 Findings: Single AP view of the chest performed. No focal consolidation or pleural effusion. No pneumothorax. The cardiomediastinal silhouette is within normal limits. Normal pulmonary vascularity. No evidence for lymphadenopathy. No visualized bony or soft tissue abnormality. Impression: Normal chest radiograph. A right upper extremity PICC tip terminates at the upper SVC. Electronically signed by Ovidio Dahl 05-14-2024 2:07 PM
[2024-05-15 06:13] LABS: Hemoglobin 12.5 g/dl (14.0-18.0); Mean Corpuscular Hemoglobin 26.9 pg (25.0-34.0); Mean Corpuscular Hgb Conc 32.1 g/dL (32.0-36.0); Mean Corpuscular Volume 84.1 fL (80.0-100.0); Mean Platelet Volume 9.4 fL (9.4-12.4); Platelet Count 276 K/uL (130-400); RDW Coefficient of Variation 15.6 % (11.5-14.5); RDW Standard Deviation 47.1 fL (36.4-46.3); Red Blood Count 4.64 M/uL (4.70-6.10); White Blood Count 7.25 K/ul (4.8-10.8)
[2024-05-15 06:44] LABS: BUN Creatinine Ratio 22.4 (10-20); Calcium 8.5 mg/dl (8.6-10.3); Creatinine Clr Calc Pharmacy 123.3 ml/min
--- NOTE | 2024-05-15 07:21 | Vascular Medicine ProgressNote ---
Date of Service May 15, 2024 Assessment & Plan (1) Acute osteomyelitis of metatarsal bone of left foot: Plan: 2. Type 2 diabetes with neuropathy 3. Lower extremity PAD - Occluded distal LT SEAMSTRESS FITTER, MONISHA with collaterals 4. Persistent atrial fibrillation on anticoagualtion Angiogram on 05/09 confirmed severe distal LT SEAMSTRESS FITTER/MONISHA disease SEAMSTRESS FITTER at least appears amenable to endovascular intervention. Patient was unable to tolerate prior angiogram with moderate sedation. Proceed with planned intervention to left SEAMSTRESS FITTER/MONISHA in OR with anesthesia. Admission and Anticipated Discharge Date Admission Date: May 08, 2024 Subjective No issues overnight. Review of Systems Review of Systems: All systems reviewed & are unremarkable except as noted in HPI & below Physical Exam Physical Exam: General: Comfortable, no acute distress Eyes: Sclerae anicteric Lungs: Clear to auscultation anteriorly Cardiac: irregularly irregular Psych: Alert orient x3, normal affect and mood Extremities/Vascular: -- 1+ radial pulses bilaterally -- Deep right [employer] pulse. No ecchymosis or hematoma. -- Dressing in place over LT foot wound. No surrounding erythema. Results & Data Vital Signs (Past 12 Hours) Vital Signs Temp Pulse Pulse Resp BP Pulse Ox O2 Del Method 05/15/24 07:03 Room Air 05/15/24 02:39 97.9 F 62 18 170/68 H 99 Room Air 05/14/24 23:28 98.2 F 61 18 172/65 H 97 Room Air 05/14/24 22:05 76 PG Care Time/CCT Total # of Minutes Spent Total Time Spent with Patient: Total time spent is greater than 50% in coordination of care (as documented) at patient's floor/unit and/or counseling patient: Coding Level of Care Code 02769 SUB INP/OBS CARE 2/35MIN Diagnoses Acute osteomyelitis of metatarsal bone of left foot M86.172
[2024-05-15] MEDS ORDERED: PROPOFOL IV EMULSION 10 MG/ML 20 ML VIAL IV ONE ×2 (07:26→07:30)
[2024-05-15] MEDS ORDERED: GLYCOPYRROLATE 0.2 MG/ML VIAL ONE (07:26)
[2024-05-15] MEDS ORDERED: MIDAZOLAM HCL 1 MG/ML 2ML VIAL ONE (07:26)
[2024-05-15] MEDS ORDERED: DexMEDEtomidine HCL IV 100 MCG/ML VIAL IV ONE (07:29)
[2024-05-15] MEDS ORDERED: KETAMINE HCL 10MG/ML SYR ONE (07:29)
[2024-05-15] MEDS ORDERED: LIDOCAINE 2% 2 ML VIAL/AMP(20MG/ML) INFIL ONE (07:30)
[2024-05-15] MEDS ORDERED: SODIUM CHLORIDE 0.9% PF INJ 10 ML VIAL ONE (07:34)
[2024-05-15] MEDS ORDERED: fentaNYL citrate PF 100 MCG/2 ML VIAL IV PRN (08:06)
[2024-05-15] MEDS ORDERED: ONDANSETRON INJ 2 MG/ML 2 ML VIAL IV PRN (08:06)
[2024-05-15] MEDS ORDERED: ATROPINE SULFATE 0.1 MG/ML 10ML SYR IV PRN (08:06)
[2024-05-15] MEDS ORDERED: ePHEDrine sulfate 50 MG/ML AMP IV PRN (08:06)
--- NOTE | 2024-05-15 08:06 | Anesthesiology Consultation ---
Date of Service May 15, 2024 Assessment & Plan Chart Review Chart Review: Acceptable Risk for Surgery and Patient NOT seen in Pre Admission Testing Consults Requested none ASA ASA4 Proposed Anesthesia Anesthesia Type: MAC Risk / Benefits Reviewed With: PT / POA / Parent / Guardian, Accepts Plan and Informed Consent Obtained History Surgery Operation Date: 05/09/24 15:30 Proposed Procedures p Angio Extremity Bilateral - Ovidio Lauren MD Operation Date: 05/11/24 10:45 Proposed Procedures p Left Foot First Ray Resection - Dez Celestin DPM Operation Date: 05/15/24 08:00 Proposed Procedures p Angiogram Extremity Unilateral Left Tibial Artery with Intervention with Anesthesia - Ovidio Lauren MD Operation Date: 05/15/24 08:00 Proposed Procedures p Angiogram Extremity Unilateral Anesthesi left tibial artery with intervention - Ovidio Lauren MD Height/Weight Height: 5 ft 8 in Weight: 156.8 kg Allergies Allergy/AdvReac Type Severity Reaction Status Date / Time No Known Drug Allergies Allergy . Verified 05/08/24 14:37 Medications Home Medications Medication Instructions Recorded Confirmed Last Taken cholecalciferol (vitamin D3) 50 2,000 unit PO QAM 03/03/18 05/08/24 03/20/24 mcg (2,000 unit) capsule (Vitamin D3) lancets 33 gauge (OneTouch [facility] #100 ea 11/04/18 05/08/24 Unknown Lancets) ascorbate calcium (vitamin C) 500 500 mg PO DAILY #30 tabs 07/11/20 05/08/24 03/19/24 mg tablet ferrous sulfate 325 mg (65 mg 325 mg PO DAILY #30 tabs 07/11/20 05/08/24 03/20/24 iron) tablet docusate sodium 100 mg capsule 100 mg PO BID PRN Constipation 10/21/20 05/08/24 1 Month Ago (Colace) ~02/22/24 mecobalamin (vitamin B12) 1 tab PO DAILY 02/06/22 05/08/24 03/20/24 pyridoxine (vitamin B6) 1 tab PO DAILY 02/06/22 05/08/24 03/20/24 loratadine 10 mg tablet 10 mg PO DAILY PRN ALLERGIES 10/08/22 05/08/24 03/20/24 mupirocin 2 % topical ointment 1 applic topical TID PRN scrotal 11/05/22 05/08/24 Unknown sores #22 grams diclofenac sodium 1 % topical gel 2 g topical QID PRN Pain 02/05/23 05/08/24 1 Week Ago (Arthritis Pain (diclofenac)) ~03/16/24 metoprolol succinate 50 mg 50 mg PO QAM #90 tabs 03/10/23 05/08/24 03/23/24 06:30 tablet,extended release 24 hr empagliflozin 10 mg tablet 10 mg PO DAILY #90 tabs 06/14/23 05/08/24 03/20/24 (Jardiance) needle (disp) 21 G 21 gauge x 1 #100 ea 09/16/23 05/08/24 Unknown 1/2" (BD Eclipse Luer-Jesus) syringe with needle 3 mL 20 gauge #100 ea 09/27/23 05/08/24 Unknown x 1 1/2" (BD Luer-Jesus Syringe) nystatin 100,000 unit/gram topical 1 applic topical DAILY 30 days #60 11/02/23 05/08/24 03/20/24 powder grams dutasteride 0.5 mg capsule 0.5 mg PO DAILY #90 caps 11/09/23 05/08/24 03/20/24 (Avodart) hydrocortisone 2.5 % topical cream 1 applic OH DAILY PRN hemorrhoids 11/09/23 05/08/24 Unknown with perineal applicator #30 grams (Anusol-HC) magnesium oxide 400 mg PO DAILY #30 tabs 11/13/23 05/08/24 03/20/24 tadalafil 5 mg tablet (Cialis) 5 mg PO DAILY PRN Other 11/13/23 05/08/24 Unknown bupropion HCl 300 mg 24 hr tablet, 300 mg PO DAILY #30 tabs 11/30/23 05/08/24 03/23/24 06:30 extended release losartan 25 mg tablet 25 mg PO DAILY #90 tabs 12/09/23 05/08/24 03/20/24 metformin 500 mg tablet,extended 1,000 mg (2 x 500 mg) PO BID #360 12/20/23 05/08/24 03/21/24 release 24 hr tabs tamsulosin 0.4 mg capsule 0.4 mg PO BID #180 caps 12/27/23 05/08/24 03/20/24 atorvastatin 80 mg tablet 80 mg PO DAILY #90 tabs 12/28/23 05/08/24 03/20/24 allopurinol 300 mg tablet 300 mg PO QAM #90 tabs 12/31/23 05/08/24 03/20/24 testosterone cypionate 200 mg/mL 100 mg (0.5 mL) subcut Q7D #2 mL 02/08/24 05/08/24 3 Weeks Ago intramuscular oil ~03/02/24 collagenase clostridium histo. 250 1 applic EXT DAILY #30 grams 02/12/24 05/08/24 03/20/24 unit/gram topical ointment (Santyl) OneTouch Verio test strips (blood #100 ea 02/14/24 05/08/24 Unknown sugar diagnostic) probiotic 1 dose PO DAILY 02/14/24 05/08/24 03/20/24 amoxicillin 875 mg-potassium 1 tab PO BIDM #14 tabs 03/18/24 05/08/24 03/23/24 06:30 clavulanate 125 mg tablet omeprazole 20 mg tablet,delayed 20 mg PO QAM 03/21/24 05/08/24 03/20/24 release torsemide 20 mg tablet 10 mg (1/2 x 20 mg) PO DAILY PRN 03/28/24 05/08/24 Unknown Fluid Retention #60 tabs acetaminophen 325 mg tablet 650 mg PO QID PRN Pain 04/04/24 05/08/24 Unknown apixaban 5 mg tablet 5 mg PO BID #180 tabs 04/04/24 05/08/24 Unknown tramadol 50 mg tablet 50 mg PO Q8H PRN Pain 04/04/24 05/08/24 Unknown piperacillin-tazobactam 3.375 gram 3.375 g IV Q6H 05/01/24 05/08/24 Unknown intravenous solution naltrexone 50 mg tablet 25 mg (1/2 x 50 mg) PO DAILY #45 05/12/24 05/12/24 Unknown tabs Active Medications Generic Name Dose Route Start Last Admin Trade Name Freq PRN Reason Stop Dose Admin Acetaminophen 650 mg 05/11/24 12:57 05/11/24 13:16 Acetaminophen 325 Mg Tab PO 06/10/24 12:56 650 mg Q4H PRN Administration Pain or Fever Allopurinol 300 mg 05/09/24 09:00 05/14/24 08:22 Allopurinol 300 Mg Tab PO 06/08/24 08:59 300 mg QAM JESSIE Administration Bupropion HCl 300 mg 05/09/24 09:00 05/14/24 08:22 Bupropion Xl 300 Mg Tabcr PO 06/08/24 08:59 300 mg DAILY JESSIE Administration Docusate Sodium 100 mg 05/08/24 22:15 05/14/24 08:21 Docusate Sodium 100 Mg Cap PO 06/07/24 22:14 100 mg BID PRN Administration Constipation Finasteride 5 mg 05/09/24 09:00 05/14/24 08:23 Finasteride 5 Mg Tab PO 06/08/24 08:59 5 mg DAILY JESSIE Administration Heparin Sodium (Beef Lung) 5 ml 05/09/24 03:42 05/10/24 14:35 Heparin 10 Unit/Ml 5 Ml Flush FLUSH 06/08/24 03:41 5 ml PRN PRN Administration Flush Heparin Sodium/Dextrose 25,000 units in 500 mls @ 36 mls/hr 05/08/24 22:15 05/10/24 10:23 Heparin 35596 Unit/500 Ml D5w IV 06/07/24 22:14 Infused .[id number] JESSIE Titration Protocol 1,800 UNITS/HR Meropenem 2,000 mg/ Sodium 100 mls @ 33.333 mls/hr 05/09/24 14:00 05/15/24 05:33 Chloride IV 06/20/24 13:59 33.3 mls/hr Q8H JESSIE Administration Protocol Insulin Aspart 0 units 05/09/24 11:30 05/15/24 06:21 Insulin Aspart Per Unit Charge SC 06/08/24 11:29 Not Given ACHS JESSIE Lactobacillus Acidophilus 625 mg 05/09/24 09:00 05/14/24 08:22 Advanced Probiotic 625 Mg Capsule PO 06/08/24 08:59 625 mg DAILY JESSIE Administration Loratadine 10 mg 05/08/24 22:15 05/10/24 08:04 Loratadine 10 Mg Tab PO 06/07/24 22:14 10 mg DAILY PRN Administration ALLERGIES Losartan Potassium 25 mg 05/09/24 09:00 05/14/24 08:22 Losartan Potassium 25 Mg Tab PO 06/08/24 08:59 25 mg DAILY JESSIE Administration Magnesium Oxide 400 mg 05/09/24 09:00 05/14/24 08:21 Magnesium Oxide 400 Mg Tab PO 06/08/24 08:59 400 mg DAILY JESSIE Administration Melatonin 6 mg 05/08/24 22:15 05/14/24 21:57 Melatonin 3 Mg Tab PO 06/07/24 22:14 6 mg HS PRN Administration Insomnia Metoprolol Succinate 50 mg 05/09/24 09:00 05/14/24 08:22 Metoprolol Succ 50mg Ext Rel Tab PO 06/08/24 08:59 50 mg QAM JESSIE Administration Morphine Sulfate 2 mg 05/12/24 08:58 05/15/24 06:26 Morphine Sulfate 2 Mg/Ml Carp IV 05/26/24 08:57 2 mg Q4 PRN Administration Pain Naltrexone HCl 25 mg 05/09/24 09:00 05/14/24 08:21 Naltrexone Hcl 50 Mg Tab PO 06/08/24 08:59 25 mg DAILY JESSIE Administration Nystatin 1 appln 05/09/24 09:00 05/14/24 08:23 Nystatin Powder 15gm Btl EXT 06/08/24 08:59 1 appln DAILY JESSIE Administration Pantoprazole Sodium 40 mg 05/09/24 09:00 05/14/24 08:22 Pantoprazole 40 Mg Tab PO 06/08/24 08:59 40 mg QAM JESSIE Administration Tamsulosin HCl 0.4 mg 05/08/24 22:15 05/14/24 20:36 Tamsulosin Hcl 0.4 Mg Cap PO 06/07/24 22:14 0.4 mg BID JESSIE Administration Tramadol HCl 50 mg 05/08/24 22:15 05/13/24 12:40 Tramadol Hcl 50 Mg Tablet PO 06/07/24 22:14 50 mg Q8H PRN Administration Pain NPO Date Last Intake of Fluids: 05/11/24 Time Last Intake of Fluids: 03:00 Last Intake of Fluids Comment: sip with pill Date Last Intake of Solids: 05/10/24 Time Last Intake of Solids: 23:00 Past Medical History Medical History Extreme obesity History of COVID-19 2019 Anxiety Hx of deep venous thrombosis right > s/p knee surgery > prior to 2020 Neuropathy bilat feet Gout GERD (gastroesophageal reflux disease) SABRINA (obstructive sleep apnea) cpap Hypomagnesemia Peripheral arterial disease 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 Diabetic ulcer of toe of left foot follows with wound clinic Burn of left great toe seeing wound clinic Coronary heart disease non-obstructive per [place] cardio records Diabetes type 2, controlled Hypertension Warfarin anticoagulation Tremor History of myocardial infarction Non-ST elevated CA 2020 > [place] Alopecia Chronic pain Cor pulmonale (chronic) Degenerative joint disease involving multiple joints on both sides of body Erectile dysfunction Tinea pedis Vitamin D deficiency Exercise / Class Metabolic Activity III < 4 Walking/Shop/Light housework Past Family History Family History Mother FH: Parkinson's disease Breast cancer Father Coronary heart disease Hypertension Cardiac disease Melanoma Skin cancer Unknown Melanoma Denies family history of Ovarian cancer Prostate cancer Myocardial infarction Lung cancer Colorectal cancer Past Surgical History Surgical History History of cardiac cath [place] > 2019 > pt unaware if stents History of tooth extraction S/P total knee arthroplasty bilat, then b/l revisions S/P tonsillectomy H/O knee surgery x4 H/O inguinal hernia repair 2016 History of hip surgery 04/2016 and 05/2016, right x2 H/O hernia repair 2016 Hx of cholecystectomy History of bladder surgery Past Anesthesia History No Hx of Anesthesia Complications and No Family Hx of Anesthesia Complications History of PONV No Hx of PONV and No Hx of Motion Sickness Social History Smoking Status: Never smoker Do You Dip or Chew Tobacco: No Hx Alcohol Use: No Hx Substance Use: No substance use type: does not use Review of Systems ROS Unobtainable: All systems reviewed & are unremarkable except as noted in HPI & below Physical Exam Vital Signs Last Vital Signs Temp 36.5 C 05/15/24 07:47 Pulse 70 05/15/24 07:47 Resp 18 05/15/24 07:47 BP 160/86 H 05/15/24 07:47 Pulse Ox 98 05/15/24 07:47 O2 Del Method Room Air 05/15/24 07:47 O2 Flow Rate 5 05/11/24 11:35 ENMT Mouth: no TMJ abnormality Thyromental Distance: > or= 3.5 Finger Breadths Mallampati Class: II Neck normal visual inspection and trachea midline; neck extension not limited Respiratory normal respiratory effort Auscultation: lungs clear to auscultation bilaterally Cardiovascular Rate/Rhythm: regular rate and regular rhythm Heart Sounds: no murmur Musculoskeletal Spine: normal cervical ROM Extremities: full ROM of extremities Neurologic moves all extremities Psychiatric Orientation: alert and oriented x 3 Testing Laboratory Results 05/15/24 05:45 05/15/24 05:45 PT 12.0 Seconds (9.0-12.0) 05/08/24 23:23 INR 1.1 (0.9-1.1) 05/08/24 23:23 APTT 32 Seconds (21-31) H 05/08/24 23:23 Hemoglobin A1c 5.7 % (4.5-5.6) H 05/09/24 05:38 Urine Color Yellow 05/08/24 17:20 Urine Appearance Clear (Clear) 05/08/24 17:20 Urine pH 6.0 (4.5-7.5) 05/08/24 17:20 Ur Specific [place] 1.019 (1.000-1.030) 05/08/24 17:20 Urine Protein Negative (Negative) 05/08/24 17:20 Urine Glucose (UA) Negative (Negative) 05/08/24 17:20 Urine Ketones Negative (Negative) 05/08/24 17:20 Urine Nitrite Negative (Negative) 05/08/24 17:20 Ur Leukocyte Esterase 1+ (Negative) H 05/08/24 17:20 Urine WBC (Auto) 0-5 /hpf (0-5) 05/08/24 17:20 Urine RBC (Auto) 0-2 /hpf (0-2) 05/08/24 17:20 U Hyaline Cast (Auto) 0-2 /lpf (0-2) 05/08/24 17:20 U Epithel Cells (Auto) 0-2 /hpf (0-2) 05/08/24 17:20 Urine Bacteria (Auto) None Seen (None Seen) 05/08/24 17:20 05/08/24 17:12 Aerobic Blood Culture - Final Blood No growth in Aerobic bottle after 5 days. Anaerobic Blood Culture - Final No growth in Anaerobic bottle after 5 days. 05/08/24 18:47 Aerobic Blood Culture - Final Blood No growth in Aerobic bottle after 5 days. Anaerobic Blood Culture - Final 05/08/24 20:41 Gram Stain - Final Foot,Left Wound Culture - Final Pseudomonas aeruginosa Pseudomonas aeruginosa#2 05/15/24 06:17 POC Glucose 82 Other Testing Electrocardiogram Date: 05/08/24 Findings: + AFIB @ (@ 69;? anter./infer. infarcts,ages ?) Chest X-Ray Date: 05/08/24 Findings: + pulmonary vascular congestion (mild -mod.) Echocardiogram Date: 10/29/20 EF: 45-50% LV Function: dysfunctional RWMA: + hypokinetic Other Findings: + LVH (moderate) and + diastolic dysfunction (Grade 1) Valvular Disease: + MR (mild) Cardiac Catheterization Date: 07/20/19 Findings: + LCX (mid 60-70%); no valve disease Intervention: + none
[2024-05-15] MEDS ORDERED: fentaNYL citrate PF 100 MCG/2 ML VIAL ONE ×2 (08:20→08:47)
[2024-05-15] MEDS ORDERED: HYDROmorphone INJ 2 MG/ML SYR/VIAL ONE (09:48)
[2024-05-15] MEDS: LIDOCAINE 1% LOCAL 20 ML VIAL ONE (09:58)
[2024-05-15] MEDS: niCARdipine HCL INJ 2.5 MG/ML 10 ML AMP ONE (09:59)
[2024-05-15] MEDS: NITROGLYCERIN 5 MG/ML 10 ML VIAL ONE (09:59)
[2024-05-15] MEDS ORDERED: ONDANSETRON INJ 2 MG/ML 2 ML VIAL ONE (10:59)
--- NOTE | 2024-05-15 11:15 | Post Anesthesia Assessment ---
Date of Service May 15, 2024 Post Sedation Assessment Vital Signs Temp Pulse Pulse Resp BP Pulse Ox O2 Del Method 05/15/24 11:10 57 L 18 146/72 H 99 Room Air 05/15/24 10:56 62 18 121/82 99 Oxymask 05/15/24 10:11 62 05/15/24 07:47 97.7 F 70 18 160/86 H 98 Room Air 05/15/24 07:03 Room Air 05/15/24 02:39 97.9 F 62 18 170/68 H 99 Room Air 05/14/24 23:28 98.2 F 61 18 172/65 H 97 Room Air 05/14/24 22:05 76 05/14/24 19:02 Room Air, CPAP 05/14/24 18:59 97.9 F 69 26 H 171/75 H 98 Room Air 05/14/24 17:38 59 L 05/14/24 14:54 97.5 F L 68 16 157/77 H 92 Room Air O2 Flow Rate 05/15/24 11:10 4 05/15/24 10:56 4 05/15/24 10:11 05/15/24 07:47 05/15/24 07:03 05/15/24 02:39 05/14/24 23:28 05/14/24 22:05 05/14/24 19:02 05/14/24 18:59 05/14/24 17:38 05/14/24 14:54 Recovery Score Activity: Moves 4 extremities Respiration: Deep Breath/Cough Circulation: +/-20% PreAnes Value Consciousness: Fully Awake Oxygen Saturation: > 92% On Room Air Post Anesthesia Score: 10 Discharge Sedation Level of Care: Fast Track Phase II Post Sedation Plan On clinical assessment, the patient appears to have tolerated the sedation without complications. Patient is recovering as anticipated. Patient will continue to be monitored by nursing and may be discharged when sedation discharge criteria are met per below protocol. Upon Completions of procedure up to 15 minutes continue every 5 minute vital signs and the P.A.R. score; then discharge to a Phase I or Fast Track to Phase II per the following guidelines: * Discharge Patient to appropriate Phase II area if PAR is 8 or greater or return to pre- procedure baseline. The post - procedure orders will be as directed. * If PAR score is less than 8 or not return to pre-procedure baseline then patient will follow Phase I monitoring till PAR is reached for Phase II. The Phase I may be done in procedure room or may call to secure a Phase I area. * If naloxone or flumazenil are used for reversal, hold in Phase I for continued monitoring from when last reversal dose was given for a minimum of 60 minutes or longer pending the nurse and/or physician discretion of patient condition before discharge to Phase II. Please call the Sedation Physician to re-evaluate and complete post-note for discharge to Phase II area. Do NOT discharge from procedure sedation or Phase 1 until post- sedation evaluation note is complete by procedure /sedation MD Sedation Discharge Instructions to be given to the patient at discharge to home.
--- NOTE | 2024-05-15 11:20 | Endovascular Procedure Note ---
PG Endovascular Procedure Rpt Pre & Post Diagnosis Peripheral artery disease I identified the patient and participated in the time-out.: Yes Procedure Operation Date: 05/15/24 08:00 Actual Procedures p Cineradiography w/Routine Exam - Ovidio Lauren MD Surgeon Ovidio Lauren MD Mainframe Applications Developer Leroy Estimated Blood Loss 20 Findings Consistent with Post-Op Diagnosis -Poplitealwidely patent TPTwidely patent -ATApatent in proximal/mid segments. Distal occlusion above the ankle. Reconstitutes as DPA via collaterals -PTAcalcified, 100% mid to distal occlusion with collaterals and sluggish flow. PT patent with mild to moderate disease as wraps around ankle. Medial and lateral plantar arteries patent to forefoot -Peronealpatent to ankle Anesthesia Type MAC Complications none Disposition Accompanied Patient To Recovery: Yes Disposition: PCU Description of Procedure Right STONE CRUSHER OPERATOR access obtained under ultrasound guidance, short 5Fr sheath placed Up and over with rim catheter 6 Fr 90 cm destination sheath placed from right STONE CRUSHER OPERATOR to distal LT popliteal. PEOPLESOFT HCM DEVELOPER occlusion crossed with 0.18 Gladius mongo and navicross catheter Angioplasty of distal PEOPLESOFT HCM DEVELOPER with 2.0 balloon Distal PEOPLESOFT HCM DEVELOPER treated with 2.5 shockwave intravascular lithotripsy balloon (160 pulses) Residual stenosis in distal PEOPLESOFT HCM DEVELOPER just above the ankle further dilated with prolonged 2.5 balloon inflation Post procedure good angiographic result, no evidence of dissection and brisk flow in PEOPLESOFT HCM DEVELOPER and plantar arteries Gladius mongo and navicross catheter directed into and across MONISHA occlusion Mid to distal MONISHA dilated with 2.5 balloon Mid to distal MONISHA treated with 3.0 shockwave intravascular lithotripsy (140 pulses). IA vasodilators administered Post procedure good angiographic result, no evidence of dissection and brisk flow into MONISHA into DPA. Contrast used: 180 mL Conscious sedation per anesthesia service Access closure: Angio-Seal Summary: 1. Left lower extremity --100% distal PEOPLESOFT HCM DEVELOPER occlusion with collaterals. 100% distal MONISHA occlusion with collaterals. 2. Successful angioplasty and intravascular lithotripsy (shockwave 3.0 mm) of left mid to distal MONISHA 3. Successful angioplasty and intravascular lithotripsy (shockwave 2.5 mm) of left mid to distal PEOPLESOFT HCM DEVELOPER Recommendations: Can resume anticoagulation this evening Dual therapy with clopidogrel and Eliquis for at least 1 month Follow-up non-invasive vascular testing in 2 weeks. I attest to the content of the Intraoperative Record and any orders documented therein. Any exceptions are noted below. Vascular Charges Lower Extremity Interventions Procedure 1: Lower Extremity Intervention charges: [id number] Angioplasty, tibial, peroneal artery, unilateral, initial vessel Procedure 2: Lower Extremity Intervention charges: [id number] Angioplasty, tibial, peroneal artery, UL each add'l vessel Additional Services Procedure 1: Additional Services Charges: [id number] Ultrasound guidance - vascular access
--- NOTE | 2024-05-15 11:23 | Post Operative Brief Note ---
PG Immediate Post Op with CF Date of Surgery May 15, 2024 Pre & Post Diagnosis PAD I identified the patient and participated in the time-out.: Yes Procedure Operation Date: 05/15/24 08:00 Actual Procedures p Cineradiography w/Routine Exam - Ovidio Lauren MD Surgeon Ovidio Lauren MD Marking Stitcher Leroy Estimated Blood Loss 20 Findings See Below Occluded distal COMPUTER FORWARDING SYSTEM MARKUP CLERK, OMNISHA 1. Successful angioplasty with intravascular lithotripsy 2.5 balloon to COMPUTER FORWARDING SYSTEM MARKUP CLERK 2. Successful angioplasty with intravascular lithotripsy 3.0 balloon to MONISHA Anesthesia Type MAC Complications none Disposition Accompanied Patient To Recovery: No Disposition: Recovery Room Overlapping Procedure I was present for: the critical portions of procedure.
[2024-05-15] MEDS: HEPARIN SOD (PORCINE) 1000 UNIT/ML ONE ×2 (11:40→11:41)
--- NOTE | 2024-05-15 11:47 | Anesthesiology Progress Note ---
Date of Service May 15, 2024 Anesthesia Post Procedure Vital Signs Vital Signs: Temp Pulse Pulse Resp BP Pulse Ox O2 Del Method 05/15/24 11:25 58 L 18 141/70 H 99 Room Air 05/15/24 11:10 57 L 18 146/72 H 99 Oxymask 05/15/24 10:56 62 18 121/82 99 Oxymask 05/15/24 10:11 62 05/15/24 07:47 36.5 C 70 18 160/86 H 98 Room Air 05/15/24 07:03 Room Air 05/15/24 02:39 36.6 C 62 18 170/68 H 99 Room Air 05/14/24 23:28 36.8 C 61 18 172/65 H 97 Room Air 05/14/24 22:05 76 05/14/24 19:02 Room Air, CPAP 05/14/24 18:59 36.6 C 69 26 H 171/75 H 98 Room Air 05/14/24 17:38 59 L 05/14/24 14:54 36.4 C L 68 16 157/77 H 92 Room Air O2 Flow Rate 05/15/24 11:25 05/15/24 11:10 4 05/15/24 10:56 4 05/15/24 10:11 05/15/24 07:47 05/15/24 07:03 05/15/24 02:39 05/14/24 23:28 05/14/24 22:05 05/14/24 19:02 05/14/24 18:59 05/14/24 17:38 05/14/24 14:54 Pain Intensity Upper Back: Pain Intensity: 3 Transfer of Care Handoff Completed per policy Notes Mental Status: alert / awake / arousable Patient Amnestic to Procedure: Yes Nausea / Vomiting: adequately controlled Pain: adequately controlled Airway Patency, RR, SpO2: stable & adequate BP & HR: stable & adequate Hydration State: stable & adequate Anesthetic Complications: no major complications apparent and Pt Satisfied with anesthetic care
--- NOTE | 2024-05-15 16:14 | XRay Report ---
XR chest 1V portable CLINICAL HISTORY: PICC line replacement COMPARISON STUDY: Chest radiograph May 14, 2024. FINDINGS: The tip of the right PICC projects over the left upper mediastinum, likely within the left brachiocephalic vein. There is no pneumothorax or pleural effusion. Cardiomegaly is again noted. Appa rent right infrahilar density is likely due to pulmonary vessels. IMPRESSION: Malpositioned right PICC. Tip projects over the left upper mediastinum, likely within the left brachiocephalic vein. The PICC could be withdrawn approximately 9 cm before re-advancing and ob taining a repeat chest radiograph. This finding will be called/faxed to the ordering provider at time of dictation. ACT 112: Negative or not required by law. Electronically signed by: Timothy Ochoa M.D. 05/15/2024 4:12 PM
--- NOTE | 2024-05-15 17:44 | XRay Report ---
EXAM: X-ray chest one-view portable CLINICAL HISTORY: PICC repositioning PRIORS: 05/14/2024 TECHNIQUE: Frontal view chest. A right sided PICC catheter present with distal tip at the atriocaval junction. FINDINGS: The chest is well-expanded. No airspace consolidation, effusion or congestive changes. Cardiac silhouette is moderately enlarged.. No pneumothorax. Trachea is patent. Osseous structures demonstrate no acute abnormality. No radiopaque foreign body. IMPRESSION: Right PICC catheter with distal tip at the atriocaval junction. Electronically signed by Johanna 05-15-2024 5:43 PM
[2024-05-15] MEDS ORDERED: Nursing to Pharmacy Communication SCH (18:45)
--- NOTE | 2024-05-15 21:44 | Podiatry Progress Note ---
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 - POD #4, Dressing changed. Sutures intact, surgical site shows no early complications. - Can leave current dressing intact unless soiled. Can WBAT in surgical shoe, would benefit from therapy for strengthening. - Could consider discharge to inpatient rehab given his chronic infection and weakness/conditioning. - Can d/c when stable. Would follow-up outpatient after d/c. Admission and Anticipated Discharge Date Admission Date: May 08, 2024 Subjective Patient seen at bedside at lunch time. He's about an hour post vascular intervention. Resting well, laying flat. States he is emotional about his foot healing, or not healing. Is very concerned about recovery after this intervention. Mildly distressed, crying, concerned about his limb salvage, but also denies any new pain (which is drastically improved compared to preop) and any new symptoms of foot infection. Review of Systems Constitutional: no fever, no chills and no fatigue Eyes: no problem reported Ear, Nose, Mouth, Throat: no problem reported Respiratory: no problem reported Cardiovascular: + edema; no problem reported Gastrointestinal: no nausea, no vomiting and no problem reported Musculoskeletal: no problem reported Integumentary: + skin ulcer, + wounds and + erythema Neurologic: + loss of sensation, + numbness and + pa resthesia; no generalized weakness Psychiatric: no problem reported Physical Exam Physical Exam: Lower extremity focused exam: DP/PT pulses nonpalpable. Diffuse bilateral lower extremity pitting edema is noted. Left hallux amputation site is closed primarily again after 1st metatarsal resection. Sutures intact without purulence. No new active Bleeding is noted though foot feels more well perfused. No ascending cellulitis. No calf pain. Edema is improving. Pain is noted on pal pation, though none on packing removal, consistent with surgical intervention. Constitutional: WD/WN, vitals as above + ill appearing and + morbidly obese Eyes: PERRL, conjunctivae normal, anicteric sclerae ENMT: external ear and nose normal, oropharynx normal Neck: trachea midline, no thyromegaly normal visual inspection Respiratory: normal respiratory effort; no respiratory distress Cardiovascular: Rate/Rhythm: regular rate and regular rhythm Chest (Breasts): Chest: normal inspection of chest Gastrointestinal (Abdomen): Inspection/Auscultation: abdomen normal to inspection Percussion/Palpation: + abdomen tender and abdomen soft Musculoskeletal: no cyanosis or clubbing, extremities motor strength 5/5 Head/Neck/Chest: normocephalic and head atraumatic Extremities: extremities normal to inspection and + amputation noted Skin: + ulcer, + wound, + skin atrophy, + dry skin, + erythema and + nails dystrophic Neurologic: awake; + abnormal touch/pain/proprioception, + abnormal sensation to monofilament and no focal motor deficits Psychiatric: A+Ox3, euthymic affect Results & Data Results & Data Vital Signs (Past 12 Hours) Vital Signs Temp Pulse Pulse Resp BP Pulse Ox O2 Del Method 05/15/24 19:46 36.9 C 73 18 161/76 H 94 CPAP 05/15/24 16:00 36.3 C L 64 18 176/97 H 92 Room Air 05/15/24 15:23 56 L 05/15/24 13:24 36.6 C 78 18 146/82 H 96 Room Air 05/15/24 12:26 60 18 182/94 H 98 Room Air 05/15/24 11:25 58 L 18 141/70 H 99 Room Air 05/15/24 11:10 57 L 18 146/72 H 99 Oxymask 05/15/24 10:56 62 18 121/82 99 Oxymask 05/15/24 10:11 62 O2 Flow Rate 05/15/24 19:46 05/15/24 16:00 05/15/24 15:23 05/15/24 13:24 05/15/24 12:26 05/15/24 11:25 05/15/24 11:10 4 05/15/24 10:56 4 05/15/24 10:11 (4) Diabetic ulcer of toe of left foot Diabetes mellitus type: type 2 Non-pressure ulcer stage: with fat layer exposed Qualified Code(s): E11.621 - Type 2 diabetes mellitus with foot ulcer; L97.522 - Non-pressure chronic ulcer of other part of left foot with fat layer exposed
--- NOTE | 2024-05-15 21:49 | Hospitalist Progress Note ---
"Date of Service May 15, 2024 Assessment & Plan (1) Osteomyelitis of great toe of left foot: (2) Venous ulcer of left leg: (3) Cellulitis of foot, left: (4) Chronic venous insufficiency: (5) SABRINA (obstructive sleep apnea): (6) Diabetic peripheral neuropathy associated with type 2 diabetes mellitus: (7) Hypogonadotropic hypogonadism in male: (8) Anxiety: (9) BPH (benign prostatic hyperplasia): (10) Gastroesophageal reflux disease: (11) Gout: (12) Infection of right prosthetic hip joint: Marlene Aguirre is a 74M w/ PMH of osteomyelitis of the L great toe s/p amputation 03/24/24, obesity (BMI 50), insomnia, venous insufficiency, SABRINA, dyslipidemia, T2DM w/ neuropathy, BPH, anxiety, hypogonadism on testosterone, GERD, and gout who presents for evaluation of non-healing foot wound. Of note, patient additionally has infected right hip joint and wound a/w with hip replacement. Left Metatarsal Exposure | Osteomyelitis - Patient s/p amputation of left great toe for osteomyelitis 03/24 - Wound remains unhealed with interval progression concerning for infection - Now s/p 1st ray amputation on 05/11 by Podiatry - Wound cultures 05/08, growing pseudomonas, same as previous wound cultures -ID on board, currently on Meropenem, will need about 6 weeks of antibiotics. he already has a PIIC line -Vascular on consult, s/p angiography on Monday 05/15 Occluded distal CONSTRUCTION MANAGEMENT ASSISTANT, MONISHA 1. Successful angioplasty with intravascular lithotripsy 2.5 balloon to CONSTRUCTION MANAGEMENT ASSISTANT 2. Successful angioplasty with intravascular lithotripsy 3.0 balloon to MONISHA -Pain controlled. Chronic Conditions - Gout - continue home medication - GERD - continue home medication - BPH - continue home medication - Anxiety - continue home medication - Hypogonadism - testosterone weekly, held on admission - DM2 - BSG ACHS and SSI inpatient, A1c in AM - Chronic L Hip Wound - wound care consultation placed Code: Full, though previous DNR, discuss further with patient DVT: Eliquis at home, Heparin inpatient pending intervention Diet: Consults: Vascular (Leonidas), Podiatry Dispo: Med/Surg pending intervention chart reviewed Admission and Anticipated Discharge Date Admission Date: May 08, 2024 Subjective Patient reports tolerating vascular procedure. Currently with no new complains. Physical Exam Physical Exam: The patient is awake, alert and oriented 3, well developed and well nourished, normocephalic and atraumatic, lying in bed and in no acute distress. HEENT--PERRL, EOMI, mucous membranes and oropharynx mildly dry Neck--supple. No JVD. No bruits. Thyroid normal, trachea midline, no adenopathy. Heart--normal S1 and S2. No murmurs, rubs or gallops. Lungs--clear bilaterally, no respiratory distress, no accessory muscle use. Abdomen--normal bowel sounds and soft. Extremities--no cyanosis or clubbing. No edema. dry dressing on left foot. Results & Data Results & Data Vital Signs (Past 12 Hours) Vital Signs Temp Pulse Pulse Resp BP Pulse Ox O2 Del Method 05/15/24 19:46 36.9 C 73 18 161/76 H 94 CPAP 05/15/24 16:00 36.3 C L 64 18 176/97 H 92 Room Air 05/15/24 15:23 56 L 05/15/24 13:24 36.6 C 78 18 146/82 H 96 Room Air 05/15/24 12:26 60 18 182/94 H 98 Room Air 05/15/24 11:25 58 L 18 141/70 H 99 Room Air 05/15/24 11:10 57 L 18 146/72 H 99 Oxymask 05/15/24 10:56 62 18 121/82 99 Oxymask 05/15/24 10:11 62 O2 Flow Rate 05/15/24 19:46 05/15/24 16:00 05/15/24 15:23 05/15/24 13:24 05/15/24 12:26 05/15/24 11:25 05/15/24 11:10 4 05/15/24 10:56 4 05/15/24 10:11 PG Care Time/CCT Total # of Minutes Spent Total Time Spent with Patient: Total time spent is greater than 50% in coordination of care (as documented) at patient's floor/unit and/or counseling patient: Coding Level of Care Code 61106 SUB INP/OBS CARE 3/50MIN Diagnoses Osteomyelitis of great toe of left foot M86.9 Venous ulcer of left leg I83.029; L97.929 Cellulitis of foot, left L03.116 Chronic venous insufficiency I87.2 SABRINA (obstructive sleep apnea) G47.33 Diabetic peripheral neuropathy associated with type 2 diabetes mellitus E11.42 Hypogonadotropic hypogonadism in male E23.0 Anxiety F41.9 BPH (benign prostatic hyperplasia) N40.0 Gastroesophageal reflux disease K21.9 Gout M10.9 Infection of right prosthetic hip joint T84.51XA"
[2024-05-16 06:27] LABS: Hematocrit (blood only) 39.7 % (42.0-52.0); Hemoglobin 12.8 g/dl (14.0-18.0); Mean Corpuscular Hemoglobin 27.2 pg (25.0-34.0); Mean Corpuscular Hgb Conc 32.2 g/dL (32.0-36.0); Mean Corpuscular Volume 84.3 fL (80.0-100.0); Mean Platelet Volume 9.6 fL (9.4-12.4); Platelet Count 315 K/uL (130-400); RDW Coefficient of Variation 15.5 % (11.5-14.5); RDW Standard Deviation 47.6 fL (36.4-46.3); Red Blood Count 4.71 M/uL (4.70-6.10); White Blood Count 7.15 K/ul (4.8-10.8)
[2024-05-16 06:55] LABS: BUN Creatinine Ratio 21.3 (10-20); C Reactive Protein 7.41 mg/dl (0-0.5); Calcium 8.8 mg/dl (8.6-10.3); Creatinine Clr Calc Pharmacy 124.8 ml/min; Potassium 4.1 mmol/L (3.5-5.1)
[2024-05-16 07:53] VITALS: TEMP 97.5
[2024-05-16] MEDS: CLOPIDOGREL BISULFATE 75 MG TAB PO SCH (10:06)
[2024-05-16] MEDS: APIXABAN 5 MG TABLET PO SCH (10:06)
[2024-05-16 10:29] VITALS: BP 153/80; RESP 18; O2SAT 96
--- NOTE | 2024-05-16 15:27 | Discharge Summary ---
Discharge Summary Date of Service May 16, 2024 Principal Dx & Hospital Course #1 = Principal Diagnosis (1) Osteomyelitis of great toe of left foot: (2) Venous ulcer of left leg: (3) Cellulitis of foot, left: (4) Chronic venous insufficiency: (5) SABRINA (obstructive sleep apnea): (6) Diabetic peripheral neuropathy associated with type 2 diabetes mellitus: (7) Hypogonadotropic hypogonadism in male: (8) Anxiety: (9) BPH (benign prostatic hyperplasia): (10) Gastroesophageal reflux disease: (11) Gout: (12) Infection of right prosthetic hip joint: Marlene Aguirre is a 74M w/ PMH of osteomyelitis of the L great toe s/p amputation 03/24/24, obesity (BMI 50), insomnia, venous insufficiency, SABRINA, dyslipidemia, T2DM w/ neuropathy, BPH, anxiety, hypogonadism on testosterone, GERD, and gout who presents for evaluation of non-healing foot wound. Of note, patient additionally has infected right hip joint and wound a/w with hip replacement. Left Metatarsal Exposure | Osteomyelitis - Patient s/p amputation of left great toe for osteomyelitis 03/24 - Wound remains unhealed with interval progression concerning for infection - Now s/p 1st ray amputation on 05/11 by Podiatry - Wound cultures 05/08, growing pseudomonas, same as previous wound cultures -ID on board, currently on Meropenem, will need about 6 weeks of antibiotics. he already has a PIIC line -Vascular on consult, s/p angiography on Monday 05/15 Occluded distal [facility] 1. Successful angioplasty with intravascular lithotripsy 2.5 balloon to [facility] 2. Successful angioplasty with intravascular lithotripsy 3.0 balloon to [facility] -Pain controlled. Chronic Conditions - Gout - continue home medication - GERD - continue home medication - BPH - continue home medication - Anxiety - continue home medication - Hypogonadism - testosterone weekly, held on admission - DM2 - BSG ACHS and SSI inpatient, A1c in AM - Chronic L Hip Wound - wound care consultation placed Code: Full, though previous DNR, discuss further with patient DVT: Eliquis at home, Heparin inpatient pending intervention Diet: Consults: Vascular (Leonidas), Podiatry Dispo: Med/Surg pending intervention chart reviewed Admission HPI Per Admitting Provider Timothy is a 74M w/ PMH of osteomyelitis of the L great toe s/p amputation 03/24/24, obesity (BMI 50), insomnia, venous insufficiency, SABRINA, dyslipidemia, T2DM w/ neuropathy, BPH, anxiety, hypogonadism on testosterone, GERD, and gout who presents for evaluation of non-healing foot wound. Of note, patient additionally has infected right hip joint and wound a/w with hip replacement. Patient presented today at the [facility] the wound clinic who noted progression of his left great toe wound. Patient underwent amputation of the L great toe 03/24/24, which has subsequently not healed. Patient now has exposed metatarsal bone. Patient denies pain or warmth of the foot. He is unable to appreciate a change in drainage/discharge from the wound. He notes two new abrasions/ulcerations on the top of his foot. Patient has a PICC line in his right arm from which he has been receiving Zosyn for his wounds (last wound culture 05/01/24 grew Pseudomonas). In addition, patient was unaware that he was to discontinue Augmentin, and has been taking PO Augmentin at home daily. Patient has chronic venous insufficiency and lower extremity edema, he uses PRN diuretics, notes that edema is at baseline. He has associated erythematous skin changes from venous insufficiency which are also at baseline. Patient has not noted any chest pain, dyspnea, nausea, emesis, headaches, lightheadedness or dizziness. He has continued to urinate and move bowels regularly w/o concern. Discharge Plan Discharge Items Patient Disposition: Home - Self-Care Reason For Visit: OSTEOMYELITIS, EXPOSED METATARSAL BONE Discharge Diagnosis: osteomyelitis Activity: Resume your previous activity Non-emergency contact: Primary Care Provider Call non-emergency contact if: you have any medication questions Follow-up/Referrals: Lewis Menendez DO [Primary Care Provider] - Diet: Carb Consistent or DM2 Addtl Attending Provider Instructions: - Can leave current dressing intact unless soiled. Can WBAT in surgical shoe, would benefit from therapy for strengthening. - Followup with Dr. Celestin as an outpatient. - continue IV antibiotics until 06/21 Pending Studies at Discharge: No Stand-Alone Forms: My Doculogy, Smoking Cessation Medications and DC Order Prescriptions: New clopidogrel 75 mg Tablet 75 mg PO QAM Qty: 30 0RF meropenem-0.9% sodium chloride 1 gram/50 mL piggyback 2 g IV Q8H 36 Days Qty: 198 0RF Rx Instructions: Continue up to 06/21 Continued nystatin 100,000 unit/gram powder 1 applic topical DAILY 30 Days Qty: 60 2RF Rx Instructions: Apply to skin around wound daily with dressing changes. ferrous sulfate 325 mg (65 mg iron) tablet 325 mg PO DAILY Qty: 30 0RF ascorbate calcium (vitamin C) 500 mg tablet 500 mg PO DAILY Qty: 30 0RF metoprolol succinate 50 mg tablet extended release 24 hr 50 mg PO QAM Qty: 90 5RF Jardiance 10 mg tablet 10 mg PO DAILY Qty: 90 3RF (DME) BD Eclipse Luer-Jesus 21 gauge x 1 1/2" needle See Rx Instructions .Route Qty: 100 1RF Rx Instructions: use 1 with each testosterone injection (DME) syringe with needle [BD Luer-Jesus Syringe] 3 mL 20 gauge x 1 1/2" syringe See Rx Instructions .Route Qty: 100 0RF Rx Instructions: use a new syringe with each testosterone injection bupropion HCl 300 mg tablet extended release 24 hr 300 mg PO DAILY Qty: 30 3RF losartan 25 mg tablet 25 mg PO DAILY Qty: 90 3RF metformin 500 mg tablet extended release 24 hr 1,000 mg PO BID Qty: 360 1RF tamsulosin 0.4 mg capsule 0.4 mg PO BID Qty: 180 3RF atorvastatin 80 mg tablet 80 mg PO DAILY Qty: 90 3RF allopurinol 300 mg tablet 300 mg PO QAM Qty: 90 3RF (DME) OneTouch Verio test strips Strip See Dose Instructions .ROUTE .MEDSUPPLY Qty: 100 3RF Rx Instructions: Test blood sugars once a day torsemide 20 mg tablet 10 mg PO DAILY PRN (Reason: Fluid Retention) Qty: 60 0RF Rx Instructions: PATIENT STATES HE TAKES 1/2 TABLET apixaban 5 mg tablet 5 mg PO BID Qty: 180 3RF (DME) lancets [OneTouch Delica Lancets] 33 gauge misc See Dose Instructions .ROUTE .MEDSUPPLY Qty: 100 Rx Instructions: USE TO TEST TWICE DAILY docusate sodium [Colace] 100 mg capsule 100 mg PO BID PRN (Reason: Constipation) diclofenac sodium [Arthritis Pain (diclofenac)] 1 % gel 2 g topical QID PRN (Reason: Pain) Rx Instructions: apply to single elbow, wrist or hand; for hand includes palm/fingers/back of hand mupirocin 2 % ointment 1 applic topical TID PRN (Reason: scrotal sores) Qty: 22 6RF hydrocortisone [Anusol-HC] 2.5 % cream with perineal applicator 1 applic GA DAILY PRN (Reason: hemorrhoids) Qty: 30 0RF dutasteride [Avodart] 0.5 mg capsule 0.5 mg PO DAILY Qty: 90 3RF testosterone cypionate 200 mg/mL oil 100 mg subcut Q7D Qty: 2 5RF Rx Instructions: inject 0.5ml (100mg) every 7 days. mecobalamin (vitamin B12) 1 tab PO DAILY pyridoxine (vitamin B6) 1 tab PO DAILY probiotic 1 dose PO DAILY naltrexone 50 mg tablet 25 mg PO DAILY Qty: 45 1RF Hold Instructions: needs appt for refill Rx Instructions: 1/2 tablet by Mouth DAILY cholecalciferol (vitamin D3) [Vitamin D3] 2,000 unit Capsule 2,000 unit PO QAM loratadine 10 mg tablet 10 mg PO DAILY PRN (Reason: ALLERGIES) tadalafil [Cialis] 5 mg tablet 5 mg PO DAILY PRN (Reason: Other) magnesium oxide 400 mg magnesium tablet 400 mg PO DAILY Qty: 30 0RF omeprazole 20 mg Tablet,Delayed Release (Dr/Ec) 20 mg PO QAM tramadol 50 mg Tablet 50 mg PO Q8H PRN (Reason: Pain) acetaminophen 325 mg Tablet 650 mg PO QID PRN (Reason: Pain) Santyl 250 unit/gram Ointment 1 applic EXT DAILY Qty: 30 0RF Held amoxicillin-pot clavulanate 875-125 mg Tablet 1 tab PO BIDM Qty: 14 0RF Hold Instructions: Provider's Order you can resume after you are down with IV antibiotics Discontinued piperacillin-tazobactam 3.375 gram recon soln 3.375 g IV Q6H Discharge Orders: Discharge Order (Routine); Ordered 05/16/24 Ordered By: Ward Parra/Other Patient Handouts: Nutrition for Wound Healing, Managing Type 2 Diabetes Admission Data Admit Date/Time: 05/08/24 20:31 Attending Provider: Ward Novoa Admit Provider: Christiano Landa Primary Care Provider: Lewis Menendez Other Providers: Mike Chavez; Dez Celestin; Ovidio Lauren; [facility] Stay Data Consultations 05/08/24 19:37 ED Decision to Admit Stat 05/08/24 20:31 Consult Podiatry Routine Consult Vascular Surgery Routine 05/09/24 09:55 Consult Infectious Diseases Routine Procedures Performed Operation Date: 05/15/24 08:00 Actual Procedures p Angio Extremity Unilateral - Ovidio Lauren MD p Lithotripsy Catheter Tib/Per - Ovidio Lauren MD Diagnostic Imagining Performed 05/09/24 12:44 MRI Foot [MR foot LT w/o con] Urgent 05/09/24 15:08 CL Cath Imgs for PACS use only Routine 05/15/24 07:28 US EV guide vascular access Stat 05/15/24 07:55 EV angio LE LT Routine Pending Results Patient Have Any Pending Studies at Discharge: No Discharge Instructions Given to Patient (Per Discharging Provider) - Can leave current dressing intact unless soiled. Can WBAT in surgical shoe, would benefit from therapy for strengthening. - Followup with Dr. Celestin as an outpatient. - continue IV antibiotics until 06/21 Coding Diagnoses Osteomyelitis of great toe of left foot M86.9 Venous ulcer of left leg I83.029; L97.929 Cellulitis of foot, left L03.116 Chronic venous insufficiency I87.2 SABRINA (obstructive sleep apnea) G47.33 Diabetic peripheral neuropathy associated with type 2 diabetes mellitus E11.42 Hypogonadotropic hypogonadism in male E23.0 Anxiety F41.9 BPH (benign prostatic hyperplasia) N40.0 Gastroesophageal reflux disease K21.9 Gout M10.9 Infection of right prosthetic hip joint T84.51XA
[2024-05-16] MEDS: MEROPENEM 500 MG in SYRINGE 0 ML IV STA (15:36)
[2024-05-16 15:44] VITALS: PULSE 64
--- NOTE | 2024-05-16 17:42 | Vascular Medicine ProgressNote ---
Date of Service May 16, 2024 Assessment & Plan (1) Acute osteomyelitis of metatarsal bone of left foot: Plan: 2. Type 2 diabetes with neuropathy 3. Lower extremity PAD - Occluded distal LT [facility] with collaterals 4. Persistent atrial fibrillation on anticoagulation Post successful angioplasty of of left distal [facility] yesterday. Left foot warm. No apparent right [facility] access sites From a vascular standpoint okay with discharge today. Continue dual therapy with Eliquis, clopidogrel for at least 1 month. Follow-up with vascular in 2 weeks for repeat noninvasive testing. Continue follow-up with wound care and podiatry. Admission and Anticipated Discharge Date Admission Date: May 08, 2024 Subjective Feeling well this morning. No significant pain in LT foot or at right [facility] access site. Review of Systems Review of Systems: All systems reviewed & are unremarkable except as noted in HPI & below Physical Exam Physical Exam: General: Comfortable, no acute distress Eyes: Sclerae anicteric Lungs: Clear to auscultation anteriorly Cardiac: irregularly irregular Psych: Alert orient x3, normal affect and mood Extremities/Vascular: -- 1+ radial pulses bilaterally -- Deep right [facility] pulse. No ecchymosis or hematoma. -- Dressing in place over LT foot wound. No surrounding erythema. Results & Data Vital Signs (Past 12 Hours) Vital Signs Temp Pulse Pulse Resp BP Pulse Ox O2 Del Method 05/16/24 15:42 97.5 F L 64 18 153/80 H 96 05/16/24 13:41 61 05/16/24 11:14 Room Air 05/16/24 10:28 97.5 F L 64 18 153/80 H 96 Room Air 05/16/24 07:52 67 05/16/24 07:52 97.5 F L 63 19 176/83 H 97 Room Air PG Care Time/CCT Total # of Minutes Spent Total Time Spent with Patient: Total time spent is greater than 50% in coordination of care (as documented) at patient's floor/unit and/or counseling patient: Coding Level of Care Code 71393 SUB INP/OBS CARE 2/35MIN Diagnoses Acute osteomyelitis of metatarsal bone of left foot M86.172
== END 2024-05-16 16:16 | disposition home health service (06) | DRG 475 ==
LOC: ED 15:45 → SUATTDRO 20:31 → 3E 20:31 → 2E 05-09 17:39
PROC: CLB.AEU (2024-05-09 15:30)